=== PATIENT | female | born 1995 | race Caucasian/White ===

== ENCOUNTER 2018-01-01 15:30 | Emergency (ER) | payer OTHER, SELFPAY ==
[2018-01-01 15:32] VITALS: BP 133/73; PULSE 81; RESP 16; TEMP 36.6; O2SAT 99; BMI 29.9
--- NOTE | 2018-01-01 16:19 | CT_ITS ---
STUDY: CT ABDOMEN AND PELVIS WITH CONTRAST REASON FOR EXAM: Female, 22 years old. Nausea and vomiting x2 days RADIATION DOSAGE (If Supplied By Facility): CTDIvol = ( 13.89 ) mGy, DLP = ( 1044.10 ) mGycm TECHNIQUE: Transaxial images were obtained from the dome of the diaphragm to the symphysis pubis with oral contrast. 100ML ml of Isovue 300 contrast was administered. Sagittal and coronal images were reconstructed. Individualized dose optimization techniques were used for this CT. COMPARISON: None. FINDINGS: The visualized lung bases are unremarkable. The visualized portions of the heart are within normal limits. Normal liver. Normal gallbladder and extrahepatic biliary system. Normal spleen. Normal pancreas. Normal bilateral adrenal glands. Normal right kidney. Normal left kidney. Normal visualized stomach. Normal small intestine. Normal colon. The appendix is visualized and appears normal. Normal abdominal aorta. Normal inferior vena cava. Normal retroperitoneum. Normal urinary bladder. The uterus and adnexal structures are unremarkable. Normal abdominal wall. There is Schmorl's node formation of the endplates of several of the lower thoracic vertebrae, which is of no clinical significance. CT/Abdomen/Pelvis WITH Contrast IMPRESSION: Schmorl's node formation of several of the lower thoracic vertebral endplates, which is of no clinical significance. There is no evidence of intra-abdominal or intrapelvic free air, free fluid, or inflammatory process. Electronically Signed: Jarrod Cohen MD at 19:51 EDT , Service support ,
[2018-01-01] MEDS: Morphine 4 MG/ML Syringe IV (16:48)
[2018-01-01] MEDS: Ondansetron 4 MG/2 ML Vial IV (16:49)
[2018-01-01] MEDS: 0.9% Normal Saline 1,000 ML 1000 ML IV (16:49)
[2018-01-01 17:09] LABS: Absolute Neutrophil Count 5.4 X10^3/uL (2.0-7.7); Basophil# 0.01 X10^3/uL; Basophil% 0.1 % (0-1); Eosinophil# 0.05 X10^3/uL; Eosinophils% 0.6 % (0-5); Hematocrit 39.8 % (37-47); Hemoglobin 13.8 g/dl (12.0-15.0); Lymphocyte % 26.6 % (19-41); Mean Corp Hgb Conc 34.7 g/gl (32-36); Mean Corpuscular Hgb 32.3 pg (27.0-32.0); Mean Corpuscular Volume 93.2 fL (81-99); Mean Platelet Vol. 10.8 fl (6.2-12.0); Monocyte# 0.58 X10^3/uL; Neutrophil % 65.5 % (47-70); Platelet Count 306 K/mm3 (150-450); RBC Distribution Width CV 12.5 % (11.6-14.6); Red Blood Count 4.27 M/mm3 (4.2-5.4); White Blood Count 8.3 K/mm3 (4.4-11.0)
[2018-01-01 17:15] LABS: POSITIVE COUNT NO; POSITIVE DIFFERENTIAL NO; POSITIVE MORPHOLOGY NO
[2018-01-01 17:18] LABS: Anion Gap 8 (5-15); BUN 14 mg/dL (7-18); Calcium,Total 9.2 mg/dL (8.5-10.1); Chloride 107 mmol/L (98-107); Creatinine, Serum 0.88 mg/dL (0.55-1.02); EST Glomerular Filtration Rate 86 mL/min (>60); Est Glom Filt Rate - Afr Amer 104 mL/min (>60); Estimated Creatinine Clearance 83.65 ml/min; Glucose 75 mg/dL (74-106); Potassium 3.9 mmol/L (3.5-5.1); Sodium Level 140 mmol/L (136-145)
--- NOTE | 2018-01-01 17:40 | ED.DCSUM_ITS ---
- ER Visit Summary Date of Service: 01/01/18 Chief Complaint: Abdominal pain and vomiting History of Present Illness: The patient is a [address] Nassar. She reports she has right lower quadrant abdominal pain began 2 days ago. She describes it as aching pain. 710 hours and 510 currently. Is worsened by movement and relieved by laying down. She reports she has been nausea and vomited approximately 12 times per day. No blood or emesis. She had one episode of diarrhea initially, but has not had any since then. No melena or hematochezia. No dysuria frequency. Her last menstrual was 2 weeks ago. No vaginal bleeding or discharge. Patient denies sick contacts. Has not been camping out of the country. No possible bad food exposure. Does not drink well water. No recent antibiotic use. Physical Examination: Vitals: Stable. Afebrile. General: Well-nourished and well-developed. Head: Normocephalic atraumatic. Neck: Supple, no lymphadenopathy. No JVD. Nontender. Cardiovascular: Regular rate and rhythm. No murmurs. Respiratory: No respiratory distress. Clear to auscultation bilaterally. Abdominal: Soft, moderate tenderness palpation the right lower quadrant, nondistended, normal bowel sounds. No guarding, rebound, or peritoneal signs. Back: Nontender. Extremities: Nontender, no edema. Skin: Normal color, no rash. Neurologic: Alert and oriented ?3. Cranial nerves II through XII are intact. Normal strength and sensation. Psych: Normal affect. Test Results: CBC and Chem-7 are normal. Emergency Department Course and Treatment: Patient had an IV placed. She is given a liter normal saline. She is given morphine and Zofran IV. She has had significant improvement. Treatment Plan: Given the localized pain in the right lower quadrant the patient will have a CT performed. She will be checked out to the oncoming physician. Disposition: Pending Impression: 1. Abdominal pain. 2. Vomiting. This note was generated with [employer] dictation software. It may contain incorrect words, spelling, and punctuation that were not noted in review of the chart prior to signing ED Disposition - Plan for ED Patient: Chief Complaint: Nausea/Vomiting Instructions: ED Nausea Vomiting Prescriptions: proMETHazine suppository [Phenergan Suppository] 25 mg RECTAL Q6H PRN PRN #6 suppos. PRN Reason: Nausea proMETHazine tablet [Phenergan] 25 mg PO Q6H PRN PRN #10 tablet PRN Reason: Nausea Referrals: Charly Machuca MD [Primary Care Provider] - 1-2 Days if not improving
[2018-01-01 17:47] LABS: Pregnancy, Serum, hCG Quali. NEGATIVE Negative (0-9 Nonpreg)
[2018-01-01] MEDS: Ketorolac 30 MG/ML Syringe IV (18:10)
[2018-01-01] MEDS: proCHLORPERazine 10 MG/2 ML Vial IV (18:10)
[2018-01-01] MEDS: DiphenhydrAMINE 50 MG/ML Syringe 25 MG IV (18:10)
[2018-01-01 18:31] VITALS: BP 137/83; PULSE 94; RESP 18; O2SAT 99
[2018-01-01 19:50] LABS: Mucous, Urine 0 SEEN /hpf (<or=2+); Red Blood Cells-Urine 0 SEEN /hpf (0-5)
[2018-01-01 19:52] LABS: Color, Urine Yellow (Yellow); Glucose, Dipstick Normal (Normal); Ketone-Dipstick 50 mg/dl (Negative); Leukocyte Esterase-Dipstick Negative /ul (Negative); Nitrite-Dipstick Negative (Negative); Occult Blood-Urine Negative /ul (Negative); Protein-Dipstick Negative (Negative); Urine Bilirubin Dipstick Negative (Negative); Urine Clarity Cloudy (Clear); Urine Urobilinogen Normal (Normal)
[2018-01-01 20:06] LABS: Squamous Epithelial Cells - UA 5-10 SEEN /hpf (5-10)
[2018-01-01 20:07] LABS: Bacteria RARE /hpf (None Seen)
[2018-01-01 20:08] LABS: White Blood Cells 0-5 SEEN /hpf (0-5)
[2018-01-01 20:20] VITALS: BP 115/55; PULSE 67; RESP 16
== END 2018-01-01 20:21 | disposition home or self-care (01) ==
PROVIDERS: Emergency Provider Emergency Medicine; Family Provider Family Medicine
DX: R10.31 Right lower quadrant pain (principal); R11.2 Nausea with vomiting, unspecified; Z79.899 Other long term (current) drug therapy
CPT/HCPCS: 74177; 80048; 81001; 84703; 85025; 96361; 96374; 96375; 99283; J7030; Q9967; A4216; J2405

== ENCOUNTER 2019-11-17 08:48 | Emergency (ER) | payer SELFPAY ==
[2019-11-17 08:50] VITALS: BP 146/82; PULSE 95; RESP 20; TEMP 37.1; O2SAT 99; BMI 30.5
--- NOTE | 2019-11-17 09:05 | ED.VIS.GEN ---
History of Present Illness Chief Complaint: Dental Informant: Patient Onset: Days Context: Gradual Onset Current Severity: Moderate Maximum Severity: Moderate Narrative: Patient presents with left lower dental pain. She states had a filling that fell out in August. Pain was tolerable and she was working on getting insurance coverage for dental care. Patient states a couple days ago part of that tooth broke and now she has had increased pain. She has been taking ibuprofen without significant improvement. Past Medical History - Allergies and Home Meds Allergies/Adverse Reactions: Allergies acetaminophen Allergy (Verified 11/17/19 08:52) Vomiting gluten Allergy (Verified 11/17/19 08:52) Vomiting Primary Care Physician: Charly Nassar MD [Primary Care Provider] - Prior records reviewed: Yes Past Medical History: None Smoking Status: Current every day smoker Review of Systems General: Denies: Chills, Fever Eyes: Denies: Visual changes - bilaterally ENT: Reports: - - Left lower dental pain. Denies: Bilateral ear pain Cardiovascular: Denies: Chest pain Respiratory: Denies: Dyspnea, Cough Gastrointestinal: Denies: Abdominal pain, Nausea, Vomiting Genitourinary: Denies: Dysuria Musculoskeletal: Denies: Swelling, Extremity Pain Skin: Denies: Rash Neurological: Denies: Headache Hematologic: Denies: Easy bruising Allergy: Denies: Uticaria Physical Exam Vital Signs/Narrative: Vital Signs Temp Pulse Resp BP Pulse Ox 11/17/19 08:50 98.7 F 95 20 H 146/82 H 99 Inital Vital Signs reviewed: Yes General: Well nourished, Well developed Head: Normocephalic ENT: Moist mucous membranes, - - No facial edema or erythema. Left mandibular second premolar has a broken posterior surface. Tooth is tender to palpation. Minimal surrounding gum edema. No trismus. Posterior pharynx exam is normal. Neck: Supple, No lymphadenopathy Cardiovascular: Regular rate, Regular rhythm Respiratory: No distress, CTA bilaterally Abdomen: Soft, Nontender Extremities: Nontender Skin: Normal color Neurological: Alert, Oriented x3 Psychological: Normal affect Diagnostic/Tx/Re-eval - Medical Decision Making Patient be treated with Pen-Vee K. She will continue ibuprofen. She is an allergy to Tylenol. She is [facility] for [facility]. ED Disposition - Plan for ED Patient: Disposition: Home or Assisted Living Diagnosis: Odontalgia Prescriptions: Penicillin V Potassium 500 mg PO 4X/DAY #40 tab Transmission Status: Pending to [id number] Referrals: Charly Nassar MD [Primary Care Provider] - Sirena Verma [NON-STAFF] - As soon as possible
[2019-11-17] MEDS: Penicillin Vk 250 MG Tablet 500 MG PO (09:11)
[2019-11-17 09:38] VITALS: BP 146/82; PULSE 95; RESP 18
== END 2019-11-17 09:40 | disposition home or self-care (01) ==
PROVIDERS: Emergency Provider Emergency Medicine; PCP Family Medicine
DX: K08.89 Other specified disorders of teeth and supporting structures (principal); F17.200 Nicotine dependence, unspecified, uncomplicated
CPT/HCPCS: 99283

== ENCOUNTER 2020-03-24 22:54 | Emergency (ER) | payer SELFPAY ==
[2020-03-24 22:55] VITALS: BP 148/85; PULSE 110; RESP 16; TEMP 37.3; O2SAT 97; BMI 27.8
--- NOTE | 2020-03-24 23:31 | ED.VISSUMM ---
- ER Visit Summary Date of Service: 03/24/20 Chief Complaint: Manic episode History of Present Illness: The patient is a 24 F who presents with a manic episode to begin today. Patient states she took a test and it came back positive. Patient states that she became manic after this. Patient and her friend reports that she has a history of manic episodes. Friend states that when she becomes manic she will throw herself onto the ground, hit her head on concrete, and pull out her hair. Patient states she does not feel safe at home at this time. Patient denies any suicidal or homicidal ideations or plans at this time. Physical Examination: Vital signs are stable. Patient is afebrile. Patient is in no acute distress. Oral mucosa is pink and moist. Neck is supple. Trachea is midline. There is no JVD noted. Heart was regular rate and rhythm. Lungs are clear and equal bilaterally. Abdomen is soft. Bowel sounds are normal. There is no tenderness. There is no rebound or guarding noted. Skin is warm dry. Cranial nerves II through XII are intact. There are no focal motor or sensory deficits noted. Extremities are intact. There is no calf tenderness or edema. Patient has a flat affect and a depressed mood. Patient denies any suicidal ideation or plan at this time. Test Results: CBC showed a mild leukocytosis of 19.9. This is most likely related to . Potassium was slightly low at 3.3. Urinalysis does not show any evidence of urinary tract infection. Quantitative hCG was 21,631. Urine tox urine was positive for cannabinoids. Serum alcohol level was normal. Emergency Department Course and Treatment: Patient was advised of her test results. Patient was feeling better on reevaluation. Patient is not suicidal. Patient appears to be less anxious and more comfortable on reevaluation. Patient was advised that crisis counselor will be calling him to talk to her. Patient did not want to wait for the crisis counselor to call her. Patient was discharged. Crisis counselor will attempt to call her and arrange for outpatient follow-up. Patient understood and was agreeable with the plan. All questions were answered. Disposition: Discharge home Impression: Manic episode This note was generated with [employer] dictation software. It may contain incorrect words, spelling, and punctuation that were not noted in review of the chart prior to signing ED Disposition - Plan for ED Patient: Disposition: Home or Assisted Living Diagnosis: Manic episode Instructions: ED Manic Depression Referrals: Charly Nassar MD [Primary Care Provider] - 3-5 Days Counseling,Center [GROUP OF PHYSICIANS] - 3-5 Days
[2020-03-24 23:50] VITALS: RESP 16
[2020-03-24 23:54] LABS: Absolute Lymphocyte Count 2.55 X10^3/uL (0.83-4.51); Basophil# 0.07 X10^3/uL; Basophil% 0.4 % (0-1); Eosinophil# 0.04 X10^3/uL; Eosinophils% 0.2 % (0-5); Hematocrit 40.9 % (37-47); Hemoglobin 14.2 g/dL (12.0-15.0); Lymphocyte # 2.55 X10^3/ul (4.0); Lymphocyte % 12.8 % (19-41); Mean Corp Hgb Conc 34.7 g/dL (32-36); Mean Corpuscular Hgb 33.4 pg (27.0-32.0); Mean Corpuscular Volume 96.2 fL (81-99); Mean Platelet Vol. 10.1 fl (6.2-12.0); Monocyte# 1.08 X10^3/uL; Monocyte% 5.4 % (0-10); NRBC Flagged by Analyzer 0 % (0-5); Neutrophil # 16.01 X10^3/uL (2.7-7.7); Neutrophil % 80.7 % (47-70); Platelet Count 317 K/mm3 (150-450); RBC Distribution Width CV 12.6 % (11.6-14.6); RBC Distribution Width SD 44.3 fl (35.1-43.9); Red Blood Count 4.25 M/mm3 (4.2-5.4); White Blood Count 19.9 K/mm3 (4.4-11.0)
[2020-03-24 23:57] LABS: Bacteria 0 SEEN /hpf (None Seen); Mucous, Urine 0 SEEN /hpf (<or=2+); Red Blood Cells-Urine 0 SEEN /hpf (0-5); White Blood Cells 0 SEEN /hpf (0-5)
[2020-03-25] LABS: Color, Urine Yellow (Yellow); Glucose, Dipstick Normal (Normal); Ketone-Dipstick Negative (Negative); Leukocyte Esterase-Dipstick Negative /ul (Negative); Nitrite-Dipstick Negative (Negative); Occult Blood-Urine Negative /ul (Negative); Protein-Dipstick Negative (Negative); Urine Bilirubin Dipstick Negative (Negative); Urine Clarity Clear (Clear); Urine Urobilinogen Normal (Normal)
[2020-03-25 00:06] LABS: Squamous Epithelial Cells - UA 0-5 SEEN /hpf (5-10)
[2020-03-25 00:08] LABS: Anion Gap 8 (5-15); BUN 8 mg/dL (7-18); BUN/Creat Ratio 11.5 RATIO (10-20); Calcium,Total 9.3 mg/dL (8.5-10.1); Chloride 107 mmol/L (98-107); EST Glomerular Filtration Rate 110 mL/min (>60); Est Glom Filt Rate - Afr Amer 133 mL/min (>60); Glucose 99 mg/dL (74-106); Potassium 3.3 mmol/L (3.5-5.1); Sodium Level 138 mmol/L (136-145)
[2020-03-25 00:09] LABS: Amphetamine Urine VISTA NEGATIVE (<1000 ng/mL); Barbiturate Urine VISTA NEGATIVE (< 200 ng/mL); Benzodiazepine Urine VISTA NEGATIVE (< 200 ng/mL); Cocaine Urine VISTA NEGATIVE (< 300 ng/mL); Ecstacy Urine VISTA NEGATIVE (< 500 ng/mL); Methadone Urine VISTA NEGATIVE (< 300 ng/mL); PCP Urine VISTA NEGATIVE (< 25 ng/mL); THC Urine VISTA POSITIVE (< 50 ng/mL); Vista UDS pH Range 6
[2020-03-25 00:16] LABS: Alcohol, Blood (Medical)-Serum < 3.0 mg/dL
[2020-03-25 00:26] LABS: hCG Titer Quant., Serum 21631 mIU/mL (1-3)
[2020-03-25 01:06] VITALS: RESP 18
--- NOTE | 2020-03-25 01:34 | ED.RN ---
crisis called to see patient
--- NOTE | 2020-03-25 01:44 | ED.RN ---
crisis called back and chart being faxed to crisis at this time
[2020-03-25 02:23] VITALS: BP 124/66; PULSE 67; RESP 18; TEMP 36.9; O2SAT 98
--- NOTE | 2020-03-25 03:07 | ED.RN ---
Patient's Mom arrives wanting to take patient home. Dr Anguiano notified and ok with patient going home with her Mom if patient agrees. BUK[facility] talked with patient and patient agrees to be discharged home with Mom. Patient notified Crisis would still be in contact with patient for further mental health follow up and possible treatment.
== END 2020-03-25 03:10 | disposition home or self-care (01) ==
LOC: ED 23:32
PROVIDERS: Emergency Provider Emergency Medicine; PCP Family Medicine
DX: O99.340 Other mental disorders complicating pregnancy, unspecified trimester (principal); F30.9 Manic episode, unspecified; Z3A.00 Weeks of gestation of pregnancy not specified
CPT/HCPCS: 80048; 80307; 80320; 81001; 84702; 85025; 99281; 99282; G0480

== ENCOUNTER 2020-03-28 00:13 | Emergency (ER) | payer SELFPAY ==
[2020-03-28 00:15] VITALS: BP 137/97; PULSE 93; RESP 16; TEMP 36.9; O2SAT 99; BMI 30.3
--- NOTE | 2020-03-28 00:23 | ED.DCSUM_ITS ---
History of Present Illness Chief Complaint: Vag Bld, Preg Informant: Patient Narrative: Patient stated she had mild spotting earlier today which stopped. She went to the bathroom tonight noticed a dime size clot. She is not having any pain or other symptoms. This is her first . She was diagnosed with approximately 3 days ago at our facility for psychiatric related complaint. Her quantitative hCG was greater than 21,000 at that time. Patient does not know her blood type. She has not had any severe abdominal bleeding. She denies abdominal pain or pelvic pain or urinary symptoms. Current severity is mild. She has an [facility] in mind that she would like to see but has not made an appointment yet. Past Medical History - Allergies and Home Meds Allergies/Adverse Reactions: Allergies acetaminophen Allergy (Verified 03/28/20 00:23) Vomiting gluten Allergy (Verified 03/28/20 00:23) Vomiting Primary Care Physician: Nasim Robison MD [STAFF PHYSICIAN] - Prior records reviewed: Yes Past Medical History: - - Reviewed Surgical History: - - Reviewed Smoking Status: Current every day smoker Alcohol: None Drugs: None Review of Systems General: Denies: Chills, Fever, Sweats Eyes: Denies: Visual changes - bilaterally, Diplopia ENT: Denies: Rhinorrhea, Sore throat Cardiovascular: Denies: Chest pain, Palpitations Respiratory: Denies: Dyspnea, Cough, Dyspnea on exertion Gastrointestinal: Denies: Abdominal pain, Nausea, Vomiting, Diarrhea, Melena, Hematochezia Genitourinary: Denies: Dysuria, Hematuria, Frequency Musculoskeletal: Denies: Back pain, Extremity Pain Skin: Denies: Rash, Wounds Neurological: Denies: Headache, Weakness, Numbness Physical Exam Vital Signs/Narrative: Vital Signs Temp Pulse Resp BP Pulse Ox 03/28/20 00:15 98.5 F 93 16 137/97 H 99 General: Well nourished, Well developed, No Acute Distress Head: Normocephalic, Atraumatic Eyes: Perrl, EOMI ENT: Moist mucous membranes, No rhinorrhea Neck: Supple, Nontender Cardiovascular: Regular rate, Regular rhythm, No murmurs Respiratory: No distress, CTA bilaterally, Chest nontender Abdomen: Soft, Nontender, Nondistended, Normal bowel sounds Back: Nontender, Normal Inspection Extremities: Nontender, No edema Skin: Normal color, No rash Neurological: Alert, Oriented x3, Cranial nerves II-XII grossly intact, Normal Strength, Normal Sensation Psychological: Normal affect, Normal Mood Diagnostic/Tx/Re-eval - Medical Decision Making Repeat quantitative hCG sent as well as blood type. Patient is O+ therefore does not need RhoGam. Monitor the analysis repeat greater than 31,000. This is going up. Pelvic exam shows no active bleeding. She will undergo an ultrasound tomorrow. I do not feel need to call in the radiological technician. I suspect she has intrauterine . This may be a mild implantation bleed. This could be the beginning of the miscarriage however time will tell. I do not feel she has an emergent illness. She had a normal hemoglobin just recently therefore I do not feel that needs to be repeated as she just had a dime sized amount. She will follow-up with [facility] and given a referral ED Disposition - Plan for ED Patient: Disposition: Home or Assisted Living Diagnosis: Vaginal bleeding during Instructions: ED Possible Miscarriage Threatened Referrals: Nasim Robison MD [STAFF PHYSICIAN] -
[2020-03-28 01:44] VITALS: BP 129/86; PULSE 78; RESP 17; O2SAT 98
== END 2020-03-28 01:40 | disposition home or self-care (01) ==
PROVIDERS: Emergency Provider Emergency Medicine; PCP Family Medicine
DX: O46.90 Antepartum hemorrhage, unspecified, unspecified trimester (principal); Z3A.00 Weeks of gestation of pregnancy not specified; O99.330 Smoking (tobacco) complicating pregnancy, unspecified trimester; F17.200 Nicotine dependence, unspecified, uncomplicated
CPT/HCPCS: 84702; 86900; 86901; 99282; A4216

== ENCOUNTER → 2020-03-30 | Outpatient (CLI) | payer SELFPAY ==
[2020-03-28 00:15] VITALS: BMI 30.3
[2020-03-30 12:13] LABS: Absolute Lymphocyte Count 1.95 X10^3/uL (0.83-4.51); Absolute Neutrophil Count 7.4 X10^3/uL (2.0-7.7); Basophil# 0.03 X10^3/uL; Basophil% 0.3 % (0-1); Color, Urine Yellow (Yellow); Eosinophil# 0.05 X10^3/uL; Eosinophils% 0.5 % (0-5); Glucose, Dipstick 100 mg/dl (Normal); Hematocrit 38.9 % (37-47); Hemoglobin 13.6 g/dL (12.0-15.0); Ketone-Dipstick 50 mg/dl (Negative); Leukocyte Esterase-Dipstick Negative /ul (Negative); Lymphocyte # 1.95 X10^3/ul (4.0); Lymphocyte % 19.3 % (19-41); Mean Corpuscular Hgb 33.5 pg (27.0-32.0); Mean Corpuscular Volume 95.8 fL (81-99); Mean Platelet Vol. 10.2 fl (6.2-12.0); Monocyte# 0.65 X10^3/uL; Monocyte% 6.4 % (0-10); NRBC Flagged by Analyzer 0 % (0-5); Neutrophil % 73.1 % (47-70); Nitrite-Dipstick Negative (Negative); Occult Blood-Urine Negative /ul (Negative); Platelet Count 304 K/mm3 (150-450); Protein-Dipstick Negative (Negative); RBC Distribution Width SD 42.1 fl (35.1-43.9); Red Blood Count 4.06 M/mm3 (4.2-5.4); Specific Gravity, Urine 1.015 (1.002-1.030); Urine Bilirubin Dipstick Negative (Negative); Urine Clarity Sl. Cloudy (Clear); Urine Urobilinogen Normal (Normal); White Blood Count 10.1 K/mm3 (4.4-11.0)
[2020-03-30 13:20] LABS: Amphetamine Urine VISTA NEGATIVE (<1000 ng/mL); Barbiturate Urine VISTA NEGATIVE (< 200 ng/mL); Benzodiazepine Urine VISTA NEGATIVE (< 200 ng/mL); Cocaine Urine VISTA NEGATIVE (< 300 ng/mL); Ecstacy Urine VISTA NEGATIVE (< 500 ng/mL); HIV - WCH Non-Reactive (Nonreactive); Hepatitis B Surface Antigen Non-Reactive (Nonreactive); Hepatitis C Antibody Non-Reactive (Nonreactive); Methadone Urine VISTA NEGATIVE (< 300 ng/mL); PCP Urine VISTA NEGATIVE (< 25 ng/mL); Rubella IgG 11.9 IU/mL; THC Urine VISTA POSITIVE (< 50 ng/mL); Vista UDS pH Range 7
[2020-04-03 03:06] LABS: Chlamydia By Nucleic Acid AMP Negative (Negative)
[2020-04-03 10:45] LABS: Gonococcus By Nucleic Acid AMP Negative (Negative)
[2020-04-05 05:27] LABS: Prenatal RPR NONREACTIVE (NONREACTIVE)
== END | disposition home or self-care (01) ==
LOC: WOBLAB 11:15
PROVIDERS: PCP Family Medicine; Visit Provider Obstetrics & Gynecology
DX: Z34.81 Encounter for supervision of other normal pregnancy, first trimester (principal)
CPT/HCPCS: 36415; 80307; 81002; 85025; 86703; 86762; 86803; 87340; 87491; 87591

== ENCOUNTER → 2020-06-07 | Outpatient (CLI) | payer MEDICAID, SELFPAY ==
[2020-06-15 12:07] LABS: AFP MoM Value 1.61 (.); AFP Value-EIA 58.6 ng/mL (.); Comment Report (.); DIA MoM Value 0.62 (.); DIA Value-EIA 96.95 pg/mL (.); DSR (By Age) 1060 (.); DSR (Second Trimester) 10000 (.); Gestat. Age Based On As provided (.); Insulin Dep Diabetes No (.); Maternal Age At EDD 24.3 yr (.); hCG Value 25325 mIU/mL (.)
[2020-06-15 12:19] LABS: CF, Screen Comment: (.)
== END | disposition home or self-care (01) ==
LOC: WOBLAB 16:45
PROVIDERS: PCP Family Medicine; Visit Provider Obstetrics & Gynecology
DX: Z34.82 Encounter for supervision of other normal pregnancy, second trimester (principal)
CPT/HCPCS: 36415; 81220; 82105; 82677; 84702

== ENCOUNTER → 2020-07-26 13:27 | Outpatient (CLI) | payer MEDICAID, SELFPAY ==
[2020-07-26 14:53] LABS: Hemoglobin 11.6 g/dL (12.0-15.0); Mean Corp Hgb Conc 33.1 g/dL (32-36); Mean Corpuscular Hgb 32.2 pg (27.0-32.0); Mean Corpuscular Volume 97.2 fL (81-99); Mean Platelet Vol. 10.7 fl (6.2-12.0); Platelet Count 273 K/mm3 (150-450); RBC Distribution Width CV 12.5 % (11.6-14.6); White Blood Count 8.4 K/mm3 (4.4-11.0)
[2020-07-26 14:55] LABS: Glucose Challenge Gest 1H 50g 92 mg/dL (70-140)
== END ==
PROVIDERS: PCP Family Medicine; Visit Provider Obstetrics & Gynecology
DX: Z34.82 Encounter for supervision of other normal pregnancy, second trimester (principal)
CPT/HCPCS: 36415; 82950; 85027

== ENCOUNTER → 2020-10-18 16:31 | Outpatient (CLI) | payer SELFPAY | PROVIDERS: PCP Family Medicine; Visit Provider Obstetrics & Gynecology | DX: Z36.85 Encounter for antenatal screening for Streptococcus B (principal) | CPT/HCPCS: 87081 ==

== ENCOUNTER 2020-11-10 04:35 | Inpatient (IN) | payer MEDICAID, SELFPAY ==
[2020-11-10] VITALS (109 sets, daily range): BP systolic 131–179; BP diastolic 77–111; PULSE 55–237; RESP 16; TEMP 36.2–37.4; O2SAT 82–100; BMI 35.4
--- NOTE | 2020-11-10 04:32 | HP.PCM_ITS ---
History and Physical Date of Admission: 11/10/20 HPI: 25-year-old G1, P0 at 39/2 weeks, OSMAN 11/15/2020 by LMP, admitted for induction of labor for gestational hypertension. Patient reports cramping starting last night, nothing was consistent or regular. Patient believes these to be [place] contractions. She took some Tylenol and went to sleep. Overnight she woke up several times to use the restroom. At a certain point she had bleeding. She was unsure at that time if baby was moving or not as she was very anxious. She reports upon arrival to labor and delivery feeling of popping. She still has some bleeding when voiding. She is now feeling good normal movement. Denies headache that is unresolved with Tylenol, vision changes, right upper quadrant pain, nausea and vomiting, chest pain, dyspnea. This is complicated by: Bipolar disorder, bulimia, Covid in August 2020, THC use, early alcohol use in , newly diagnosed gestational hypertension. Obstetrical History G1: Current Past Medical History Bipolar disorder, bulimia, history of drug use Medications PNV Past Surgical History Denies Social History Tobacco use: Vapes Alcohol use: Denies Illicit drug use: History of THC use Labs Blood type: O+ Rubella: Immune Hep B/C: Negative/negative HIV: Negative RPR: Nonreactive 1 hour GTT: Within normal limits GBS: neg 10/18 Allergies Hydrocodone, Percocet, Vicodin Review of Systems General: alert and oriented HEENT: _denies change of vision Heart/lungs: _denies CP, SOB GI: _denies nausea, vomiting, dysuria, diarrhea MSK: _denies calf pain, tenderness Physical Exam Vital Signs Temp Pulse BP Pulse Ox 11/10/20 04:22 68 157/95 H 11/10/20 04:12 68 141/82 H 11/10/20 04:01 66 179/104 H 94 11/10/20 04:00 97.8 F 97 General: a&o x3, NAD HEENT: normocephalic, atraumatic Cardio: no JVD Resp: no increased work in breathing Abdomen: soft, gravid, nontender, no right upper quadrant pain Extremities: _minimal-moderate edema Neurological: Cranial nerves II through XII grossly intact, patellar reflexes 2/4, no clonus CE: 50/-3, moderate amount of blood on glove unable to determine if membranes were palpated on exam FHT: 150/moderate variability/positive accelerations/no decelerations [place]: irregular Labs Pending: CBC, type and screen, CMP, LDH, urine tox, urinalysis, urine protein creatinine ratio Assessment & Plan 25-year-old G1, P0 at 39/2 weeks, OSMAN 11/15/2020 by LMP, admitted for induction of labor for gestational hypertension. This is complicated by: Bipolar disorder, bulimia, Covid in August 2020, THC use, early alcohol use in , newly diagnosed gestational hypertension. Admit to L&D - Routine labor orders -Elevated blood pressure, suspected gestational hypertension. Preeclampsia labs will be sent. Patient asymptomatic at this time, exam within normal limits. As patient is over 37 weeks gestation, indication for delivery based on elevated blood pressures is present. We will plan to induce with Pitocin. Risks of induction were discussed with the patient including risk of intolerance of labor and section. -Vaginal bleeding. No evidence at this time of placental abruption. Patient is comfortable in room, abdomen is soft and nontender. Contraction pattern is irregular and heart rate is reassuring. Bleeding etiology could be secondary to early labor or rupture of membranes. Will send PROM however aware that this may not be accurate due to presence of blood. Based on elevated blood pressures and vaginal bleeding plan to induce as above. No indication for section at this time. - GBS negative 10/18/2020 -THC use. Will get urine tox screen -Bipolar disorder. Patient is not currently on any medications. Will need follow-up with psychiatrist and/or primary care after delivery. - CEFM - Anesthesia to see
[2020-11-10 04:50] LABS: ROM Internal Control Test YES-OK TO RESULT pt. (Internal QC)
[2020-11-10 04:52] LABS: ROM Patient Test POSITIVE (Negative)
[2020-11-10] MEDS: Lactated Ringers 1,000 ML 50 ML IV (04:55)
[2020-11-10 05:16] LABS: Mucous, Urine 0 SEEN /hpf (<or=2+)
[2020-11-10 05:18] LABS: Absolute Neutrophil Count 7.7 X10^3/uL (2.0-7.7); Basophil# 0.04 X10^3/uL; Basophil% 0.4 % (0-1); Eosinophil# 0.08 X10^3/uL; Eosinophils% 0.7 % (0-5); Hematocrit 32.6 % (37-47); Lymphocyte % 22.4 % (19-41); Mean Corp Hgb Conc 33.7 g/dL (32-36); Mean Corpuscular Hgb 31.4 pg (27.0-32.0); Mean Corpuscular Volume 93.1 fL (81-99); Mean Platelet Vol. 11.8 fl (6.2-12.0); Monocyte# 0.83 X10^3/uL; Monocyte% 7.4 % (0-10); NRBC Flagged by Analyzer 0 % (0-5); Neutrophil # 7.66 X10^3/uL (2.7-7.7); Neutrophil % 68.6 % (47-70); Platelet Count 210 K/mm3 (150-450); RBC Distribution Width CV 13.5 % (11.6-14.6); RBC Distribution Width SD 45.1 fl (35.1-43.9); White Blood Count 11.2 K/mm3 (4.4-11.0)
[2020-11-10 05:25] LABS: Color, Urine Red (Yellow); Glucose, Dipstick Normal (Normal); Ketone-Dipstick Negative (Negative); Leukocyte Esterase-Dipstick Negative /ul (Negative); Nitrite-Dipstick Negative (Negative); Occult Blood-Urine 250 /ul (Negative); Protein-Dipstick 500 mg/dl (Negative); Specific Gravity, Urine 1.015 (1.002-1.030); Urine Bilirubin Dipstick Negative (Negative); Urine Clarity Turbid (Clear); Urine Urobilinogen Normal (Normal)
[2020-11-10 05:27] LABS: Partial Thromboplast Time 24.4 Seconds (24.1-36.2); Prothrombin Time (Protime)PT. 12.2 SECONDS (11.7-14.9)
[2020-11-10 05:32] LABS: Red Blood Cells-Urine > 100 SEEN /hpf (0-5)
[2020-11-10 05:33] LABS: Squamous Epithelial Cells - UA 0-5 SEEN /hpf (5-10); White Blood Cells 0-5 SEEN /hpf (0-5)
[2020-11-10] MEDS: Oxytocin 30 units/NS 500 ml 30 UNITS/500 ML IV.SOLN IV (05:35)
[2020-11-10 05:36] LABS: AST(SGOT) 49 U/L (15-37); Alanine Aminotransfer ALT/SGPT 15 U/L (13-56); Creatinine, Serum 0.72 mg/dL (0.55-1.02); EST Glomerular Filtration Rate 106 mL/min (>60); Est Glom Filt Rate - Afr Amer 128 mL/min (>60); Estimated Creatinine Clearance 95.29 ml/min; LDH 566 U/L (84-246); Uric Acid 5.5 mg/dL (2.6-6.0)
[2020-11-10 05:41] LABS: Amphetamine Urine VISTA NEGATIVE (<1000 ng/mL); Barbiturate Urine VISTA NEGATIVE (< 200 ng/mL); Benzodiazepine Urine VISTA NEGATIVE (< 200 ng/mL); Cocaine Urine VISTA NEGATIVE (< 300 ng/mL); Ecstacy Urine VISTA NEGATIVE (< 500 ng/mL); Methadone Urine VISTA NEGATIVE (< 300 ng/mL); PCP Urine VISTA NEGATIVE (< 25 ng/mL); THC Urine VISTA NEGATIVE (< 50 ng/mL); Vista UDS pH Range 7
[2020-11-10 05:50] LABS: Protein, Urine (Random) 230.2 mg/dL (<11.9); Protein:Creat Ratio 6090 mg/g CRE (0-200)
[2020-11-10] MEDS: Lactated Ringers 500 ML 999 ML IV (08:29)
[2020-11-10] MEDS: fentaNYL-bupivacaine (epidural) 100 ML BAG EPIDURAL (09:25)
[2020-11-10] MEDS: Ondansetron 4 MG/2 ML Vial IV (09:35)
[2020-11-10] MEDS: Lactated Ringers 1,000 ML 200 ML IV (13:35)
--- NOTE | 2020-11-10 16:23 | PN.OBGYN_ITS ---
Subjective: Patient feeling right-sided contractions with second epidural. States this epidural is improved from previous epidural where there was left-sided pain that was severe. Patient wincing with each contraction. Bolus was given while in room and patient had great relief. Overall patient feeling a bit mentally warm but desires to keep going. - Physical Exam Vitals/I&O's: Vital Signs Temp Pulse BP Pulse Ox 97.8 F 220 H 140/85 H 85 11/10/20 15:34 11/10/20 16:03 11/10/20 16:03 11/10/20 16:03 Weight: 197 lb Body Mass Index (BMI) 35.4 Intake and Output for Last 24 Hours 11/08/20 11/09/20 11/10/20 23:59 23:59 23:59 Intake Total 1793.79 / 1793.79 Output Total 400 / 400 Balance 1393.79 / 1393.79 General: Alert, Oriented x3, Cooperative, No apparent distress HEENT: Atraumatic, Normocephalic Oral: Moist Mucosa Neck: Supple Extremities: No clubbing, No cyanosis, No edema Neurological: Neuro grossly intact Psych/Mental Status: Normal Affect, Appropriate, Alert and oriented to time, place, person, mood and affect Microbiology Past 72 Hours 11/10/20 04:55 Mucosa - Nose SARS-CoV-2 Antigen (Rapid) - Final Laboratory Results 11/10/20 04:30: Vag Amniotic Fld Detect POSITIVE H 11/10/20 04:55: WBC 11.2 H, RBC 3.50 L, Hgb 11.0 L, Hct 32.6 L, MCV 93.1, MCH 31.4, MCHC 33.7, RDW Std Deviation 45.1 H, RDW Coeff of Cinthya 13.5, Plt Count 210, MPV 11.8, Immature Gran % (Auto) 0.500, Neut % (Auto) 68.6, Lymph % (Auto) 22.4, [place] % (Auto) 7.4, Eos % (Auto) 0.7, Baso % (Auto) 0.4, Absolute Neuts (auto) 7.7, Absolute Lymphs (auto) 2.50, Nucleated RBC % 0 11/10/20 04:55: Blood Type O POSITIVE, Antibody Screen NEGATIVE 11/10/20 04:55: Creatinine 0.72, Estim Creat Clear Calc 95.29, Est GFR (MDRD) Af Amer 128, Est GFR (MDRD) Non-Af 106, Uric Acid 5.5, AST 49 H, ALT 15, Lactate Dehydrogenase 566 H 11/10/20 04:55: PT 12.2, INR 1.0, APTT 24.4 11/10/20 04:55: Urine Opiates Screen NEGATIVE, Urine Methadone Screen NEGATIVE, Ur Barbiturates Screen NEGATIVE, Ur Phencyclidine Scrn NEGATIVE, Ur Amphetamines Screen NEGATIVE, U Methamphetamin-MDMA NEGATIVE, U Benzodiazepines Scrn NEGA TIVE, Urine Cocaine Screen NEGATIVE, U Cannabinoids Screen NEGATIVE, Ur Drug Screen Comment 11/10/20 04:55: Urine Color Red, Urine Clarity Turbid, Urine pH 7.0, Ur Specific [place] 1.015, Urine Protein 500 H, Urine Glucose (UA) Normal, Urine Ketones Negative, Urine Occult Blood 250 H, Urine Nitrite Negative, Urine Bilirubin Negative, Urine Urobilinogen Normal, Ur Leukocyte Esterase Negative, Urine RBC > 100 SEEN, Urine WBC 0-5 SEEN, Ur Squamous Epith Cells 0-5 SEEN, Urine Bacteria Not Reportable, Urine Mucus 0 SEEN 11/10/20 04:55: U Random Total Protein 230.2 H, Urine Creatinine 37.80, Protein/Creatinin Ratio 6090 H Current Medications Acetaminophen (Acetaminophen 500 Mg Tablet) 500 - 1,000 mg PO Q6H PRN PRN PRN Reason: Pain Score 1-3 Al Hydroxide/Mg Hydroxide (Mag Hydrox/Al Hydrox/Simeth 30 Ml Udc) 15 - 30 ml PO Q4H PRN PRN PRN Reason: INDIGESTION Citric Acid/Sodium Citrate (Sodium Citrate/Citric Acid 30 Ml Udc) 30 ml PO X1 PRN PRN Reason: Section Ephedrine Sulfate (Ephedrine Sulfate 50 Mg/Ml Ampul) 10 mg IV Q10M PRN PRN Reason: hypotension Ephedrine Sulfate (Ephedrine Sulfate 50 Mg/Ml Ampul) 10 mg IM Q30M PRN PRN Reason: hypotension Fentanyl Citrate (Fentanyl 100 Mcg/2 Ml Ampul) 25 - 50 mcg IV Q2H PRN PRN PRN Reason: Pain Score 4-10 Fentanyl/Bupivacaine/Sodium Chlor (Fentanyl-Bupivacaine (Epidural) 100 Ml Bag) 0 ml EPIDURAL UD NANCY; Protocol Last Admin: 11/10/20 09:25 Dose: 100 ml Documented by: Lactated Ringer's () 500 mls @ 999 mls/hr IV .Q31M PRN PRN Reason: Epidural Last Infusion: 11/10/20 09:00 Dose: Infused Documented by: Lactated Ringer's () 500 mls @ 999 mls/hr IV .Q31M PRN PRN Reason: Corrective Measures Lactated Ringer's () 1,000 mls @ 50 mls/hr IV .Q20H [facility] Last Admin: 11/10/20 13:35 Dose: 200 mls/hr Documented by: Oxytocin/Sodium Chloride () 30 units in 500 mls @ 2 mls/hr IV .Q250H [facility] Last Infusion: 11/10/20 16:00 Dose: 6 mls/hr Documented by: Nalbuphine HCl (Nalbuphine 10 Mg/Ml Ampul) 5 mg IV Q3H PRN PRN PRN Reason: ITCHING Naloxone HCl (Naloxone 0.4 Mg/Ml Syringe) 0.02 mg IV Q1M PRN PRN Reason: RR <10 and pt unresponsive Ondansetron HCl (Ondansetron 4 Mg/2 Ml Vial) 4 mg IV Q4H PRN PRN PRN Reason: NAUSEA Last Admin: 11/10/20 09:35 Dose: 4 mg Documented by: Prochlorperazine Edisylate (Prochlorperazine 10 Mg/2 Ml Vial) 10 mg IV Q6H PRN PRN PRN Reason: NAUSEA Sodium Chloride (0.9% Saline Lock 10 Ml Syringe) 10 - 40 ml IV X1 PRN PRN Reason: SALINE FLUSH Medical Necessity - Tobacco Use Smoking Status: Current every day smoker Assessment/Plan Patient seen and examined. Cervical exam 5 cm unchanged from previous cervical exam 2 hours ago. Patient with IUPC and FSE previously placed. Overall heart tracing category 1 tracing 120/moderate variability/negative accelerations/early decelerations. Pitocin previously turned off with nonreassuring heart tones now Pitocin is being titrated with category 1 tracing. Educated patient on blood pressures and lab values. Patient with elevated blood pressures gestational hypertension, labs with slightly elevated AST but is not severe range double the upper limit of normal. Urine protein noted but a large amount of blood is also noted in the urine along with rupture membranes, very difficult to evaluate. Patient has also had severe range blood pressures that are not persistent. Patient remains asymptomatic. We will continue to monitor and if severe range blood pressures remain persistent will treat and start magnesium if needed. Discussed anesthesia and epidural relief with the patient and the anesthesia team. Patient is becoming mentally and physically warm from lack of pain relief. Recent bolus given the most relief. We will continue to keep second epidural and managed with bolus medication as needed, will consider third epidural if needed per anesthesia team. Educated patient on Pitocin titration and cervical dilation possible future need for , but at this time category 1 tracing we will continue to titrate Pitocin.
[2020-11-10] MEDS: Oxytocin 30 units/NS 500 ml 30 UNITS/500 ML IV.SOLN 334 UNITS IV (18:19)
--- NOTE | 2020-11-10 18:30 | PCM.OPRPT ---
Vaginal Delivery Date of Procedure: 11/10/20 Pre-Operative Diagnosis: Term, nonreassuring heart tones Post-Operative Diagnosis: Term, nonreassuring heart tones Surgery/ Procedure Performed: Vacuum Assisted Vaginal Delivery Type of Anesthesia: Epidural Description of Procedure: Procedure: Vacuum-assisted vaginal delivery Surgeon: Sy Schaefer MD Anesthesia: Epidural EBL: 300 cc Complications: none Findings: Female in vertex position, OA +2 station. Apgars 7/9. Right labial laceration noted and repaired. Consent: Patient arrived to labor and delivery with SROM augmented with Pitocin. After replacement of epidural patient felt to have pelvic pressure noted to be precipitously delivering. I was called and arrived to room with baby and heart tones in the 50s to 60s for 4 minutes. Patient pushing with no progress and no improvement with heart tones. Direct OA position was noted +3 station. Pelvis felt to be adequate for vaginal delivery. The epidural was adequate. Educated the patient on vacuum delivery. Patient desired to proceed with vacuum delivery and understood there were small risks of cephalhematoma or shoulder dystocia. Procedure: Arcos catheter was present. Vagina was examined to reconfirmed OA position +3 station. A Kiwi vacuum was applied over the sagittal suture about 3 cm from the posterior fontanelle toward the face. Vacuum pressure was created. The head of the vacuum cup was carefully examined and no maternal tissue was entrapped under the cup. Right hand apply gentle horizontal traction along with pelvic axis and coordination with maternal pushing. Progressive descent was noted with each of the 5 pulls. The handle of the vacuum was gradually elevated on the perineum began to bulge.. The cup did not pop off the head throughout the procedure. The cup was removed after the head delivery. The shoulders and the rest of the body were delivered with ease. Placenta was delivered via cord traction and fundal massage. IV oxytocin was initiated to facilitate uterine contractions. The cervix and vaginal hairston were thoroughly examined. Right labial laceration was noted and repaired in typical fashion. The was examined after delivery. No visible lacerations were noted.
--- NOTE | 2020-11-10 18:41 | DCINST_ITS ---
<Sy Schaefer - Last Filed: 11/10/20 18:41> Discharge Diet: No Restrictions Discharge Activity: Return to Normal Activity, No Restrictions, May Drive, May Shower May resume sexual activity in: 4-6 weeks Weight Bearing Status: Weight bearing as tolerated Call your doctor if your incision/area has: Continuous Slow Oozing, Foul Smelling Discharge Call your doctor if you observe: Fever of 101 or Higher, Shortness of breath, Chest pain Additional Instructions: If you experience any of the following, contact your healthcare provider. * Bleeding that soaks a pad every hour for 2 hours * Fever 100.4 or higher * Unrelieved incision or abdominal pain * Swelling, redness, discharge or bleeding from your incision or episiotomy site * Your incision begins to separate * Problems urinating (including inability to urinate or burning while urinating). * Visual changes * Severe headache * Flu-like symptoms * Pain or redness in one of both of your breasts * Pain, warmth, tenderness or swelling in your legs, especially the calf area * Frequent nausea and vomiting * Symptoms of depression or anxiety If you experience any of the following, call 911 or go to the nearest Emergency Room. * Chest pain * Problems breathing * Seizure activity * Partial or complete paralysis of a body part, slurred speech, weakness or drooping of the face, or a sudden inability to walk or hold your balance Allergies/Adverse Reactions: Allergies acetaminophen Allergy (Verified 11/10/20 04:09) Vomiting gluten Allergy (Verified 11/10/20 04:09) Vomiting Medications to take at Discharge Pnv No.95/Ferrous Fum/Folic AC [ Formula] 1 ea PO DAILY 03/28/20 Please Follow Up With: Sy Schaefer MD - e When: 1 week for blood pressure check, 4 to 6 weeks for visit Primary Care Physician: Charly Nassar MD [Primary Care Provider] - Test Results: Test results from this visit will be discussed in further detail at your follow- up appointment, if applicable. <Thuy Schaefer - Last Filed: 11/12/20 06:51> Additional Instructions: If you experience any of the following, contact your healthcare provider. * Bleeding that soaks a pad every hour for 2 hours * Fever 100.4 or higher * Unrelieved incision or abdominal pain * Swelling, redness, discharge or bleeding from your incision or episiotomy site * Your incision begins to separate * Problems urinating (including inability to urinate or burning while urinating). * Visual changes * Severe headache * Flu-like symptoms * Pain or redness in one of both of your breasts * Pain, warmth, tenderness or swelling in your legs, especially the calf area * Frequent nausea and vomiting * Symptoms of depression or anxiety If you experience any of the following, call 911 or go to the nearest Emergency Room. * Chest pain * Problems breathing * Seizure activity * Partial or complete paralysis of a body part, slurred speech, weakness or drooping of the face, or a sudden inability to walk or hold your balance When: additional 3w in office MD visit Test Results: Test results from this visit will be discussed in further detail at your follow- up appointment, if applicable.
[2020-11-10] MEDS: Ibuprofen 600 MG Tablet PO (19:48)
[2020-11-10] MEDS: 0.9% Saline Lock 10 ML Syringe IV (20:41)
--- NOTE | 2020-11-10 21:19 | NURSING ---
mary cath removed at 2044. 10 cc NS removed from balloon. pt tolerated well. tip intact. 400 cc clear, yellow urine emptied. pt aware she needs two voids before getting her IV removed.
--- NOTE | 2020-11-10 21:21 | NURSING ---
this RN gave report to pamela JANE. that rn to assume care of pt at this time.
--- NOTE | 2020-11-10 22:41 | NURSING ---
Rounded on this patient and patient stated, I feel like I'm bleeding a lot. Assess patient's current pad and previous pad. Small amount of red lochia. Patient's fundus firm and 1 breadth below uterus, midline. Explained to patient that abnormal findings would be soaking more than one pad an hour or a golf ball sized clot or larger. Patient verbalizes understanding.
[2020-11-11 03:33] VITALS: BP 121/69; PULSE 79; RESP 16; TEMP 36.5
[2020-11-11] MEDS: Ibuprofen 600 MG Tablet PO ×3 (05:04→23:57)
[2020-11-11 07:40] VITALS: BP 135/95; PULSE 74; RESP 18; TEMP 36.1
--- NOTE | 2020-11-11 10:43 | PCM.PN.OB ---
Subjective: day 1. Bottlefeeding. Bottom is sore but pain is tolerable. Lochia minimal. Denies headache, vision changes, chest pain, shortness of breath, nausea vomiting, right upper quadrant pain. - Physical Exam Vitals/I&O's: Vital Signs Temp Pulse Resp BP Pulse Ox 97 F L 74 18 135/95 H 98 11/11/20 07:40 11/11/20 07:40 11/11/20 07:40 11/11/20 07:40 11/10/20 20:29 Oxygen Delivery Method Room Air Weight: 89.358 kg Body Mass Index (BMI) 35.4 Intake and Output for Last 24 Hours 11/09/20 11/10/20 11/11/20 23:59 23:59 23:59 Intake Total 3192.71 / 3192.71 Output Total 1650 / 1700 450 / 450 Balance 1542.71 / 1492.71 -450 / -450 General: Alert, Oriented x3, No apparent distress HEENT: Atraumatic, Normocephalic Neck: Supple Lungs: Normal air movement Cardiovascular: Regular rate, Regular Rhythm Abdomen: Soft - Uterus 2 cm below umbilicus Extremities: No edema Neurological: Cranial nerves II-XII grossly intact, Deep Tendon Reflexes 2+/4 and Symmetrical Psych/Mental Status: Normal Affect, Appropriate Microbiology Past 72 Hours 11/10/20 04:55 Mucosa - Nose SARS-CoV-2 Antigen (Rapid) - Final Current Medications Acetaminophen (Acetaminophen 500 Mg Tablet) 1,000 mg PO Q8 PRN PRN Reason: Pain Score 1-3 Bisacodyl (Bisacodyl 10 Mg Suppository) 10 mg RC UD PRN PRN Reason: If no BM Dibucaine (Dibucaine 30 Gm Tube) 1 applic TOPICAL TID PRN PRN; Protocol PRN Reason: Discomfort Hydrocortisone (Hydrocortisone 2.5% Crm) 1 applic TOPICAL TID PRN PRN; Protocol PRN Reason: Discomfort Ibuprofen (Ibuprofen 600 Mg Tablet) 600 mg PO Q6H PRN PRN PRN Reason: Pain Score 1-3 Last Admin: 11/11/20 05:04 Dose: 600 mg Documented by: Ondansetron HCl (Ondansetron 4 Mg/2 Ml Vial) 4 mg IV Q4H PRN PRN PRN Reason: Nausea Senna/Docusate Sodium (Senna/Docusate Sodium 1 Tablet) 1 - 2 tablet PO DAILY PRN PRN PRN Reason: Constipation Simethicone (Simethicone 80 Mg Tablet) 80 mg PO PCHS PRN PRN Reason: Indigestion/Stomach pain Sodium Chloride (0.9% Saline Lock 10 Ml Syringe) 5 - 15 ml IV UD PRN PRN Reason: SALINE FLUSH Last Admin: 11/10/20 20:41 Dose: 10 ml Documented by: Medical Necessity - Tobacco Use Smoking Status: Current every day smoker Assessment/Plan 25-year-old day 1 status post V AVD. Complicated by gestational hypertension. Blood pressures are improved, no need for medication at this time. Home tomorrow. Plan for 1 week blood pressure check.
[2020-11-11] MEDS: Acetaminophen 500 MG Tablet 1000 MG PO (10:57)
[2020-11-11 12:57] VITALS: BP 148/98; PULSE 85; RESP 16; TEMP 36
[2020-11-11 16:24] VITALS: BP 149/92; PULSE 84; RESP 16; TEMP 36.1
[2020-11-11 19:47] VITALS: BP 143/85; PULSE 79; RESP 18; TEMP 37.3
[2020-11-12] VITALS (8 sets, daily range): BP systolic 127–153; BP diastolic 76–106; PULSE 74–96; RESP 16–18; TEMP 35.8–37.1; O2SAT 96–98
[2020-11-12] MEDS: Acetaminophen 500 MG Tablet 1000 MG PO ×2 (02:11→14:52)
--- NOTE | 2020-11-12 06:52 | PN.OBGYN_ITS ---
Subjective: day 2. Feeling well. Having some cramping. No headaches, vision changes, chest pain, shortness of breath, nausea or vomiting, right upper quadrant pain. - Physical Exam Vitals/I&O's: Vital Signs Temp Pulse Resp BP Pulse Ox 98.7 F 74 18 138/90 H 98 11/12/20 02:04 11/12/20 02:04 11/12/20 02:04 11/12/20 02:04 11/10/20 20:29 Oxygen Delivery Method Room Air Weight: 89.358 kg Body Mass Index (BMI) 35.4 Intake and Output for Last 24 Hours 11/10/20 11/11/20 11/12/20 23:59 23:59 23:59 Intake Total 3192.71 / 3192.71 Output Total 1650 / 1700 450 / 450 Balance 1542.71 / 1492.71 -450 / -450 General: Alert, Oriented x3, No apparent distress HEENT: Atraumatic, Normocephalic Neck: Supple Lungs: Clear to auscultation, Normal air movement Cardiovascular: Regular rate, Regular Rhythm Abdomen: Soft - Uterus 2 cm below umbilicus Extremities: No edema Neurological: Cranial nerves II-XII grossly intact, Deep Tendon Reflexes 2+/4 and Symmetrical Psych/Mental Status: Normal Affect, Appropriate Microbiology Past 72 Hours 11/10/20 04:55 Mucosa - Nose SARS-CoV-2 Antigen (Rapid) - Final Current Medications Acetaminophen (Acetaminophen 500 Mg Tablet) 1,000 mg PO Q8 PRN PRN Reason: Pain Score 1-10 Last Admin: 11/12/20 02:11 Dose: 1,000 mg Documented by: Bisacodyl (Bisacodyl 10 Mg Suppository) 10 mg RC UD PRN PRN Reason: If no BM Dibucaine (Dibucaine 30 Gm Tube) 1 applic TOPICAL TID PRN PRN; Protocol PRN Reason: Discomfort Hydrocortisone (Hydrocortisone 2.5% Crm) 1 applic TOPICAL TID PRN PRN; Protocol PRN Reason: Discomfort Ibuprofen (Ibuprofen 600 Mg Tablet) 600 mg PO Q6H PRN PRN PRN Reason: Pain Score 1-10 Last Admin: 11/11/20 23:57 Dose: 600 mg Documented by: Ondansetron HCl (Ondansetron 4 Mg/2 Ml Vial) 4 mg IV Q4H PRN PRN PRN Reason: Nausea Senna/Docusate Sodium (Senna/Docusate Sodium 1 Tablet) 1 - 2 tablet PO DAILY PRN PRN PRN Reason: Constipation Simethicone (Simethicone 80 Mg Tablet) 80 mg PO PCHS PRN PRN Reason: Indigestion/Stomach pain Sodium Chloride (0.9% Saline Lock 10 Ml Syringe) 5 - 15 ml IV UD PRN PRN Reason: SALINE FLUSH Last Admin: 11/10/20 20:41 Dose: 10 ml Documented by: Medical Necessity - Tobacco Use Smoking Status: Current every day smoker Assessment/Plan 25-year-old day 2 status post . Complicated by gestational h ypertension. Blood pressures controlled without medications. Asymptomatic, exam within normal limits. Signs and symptoms of preeclampsia reviewed. Patient to be discharged home today and follow-up 1 week blood pressure check in office.
--- NOTE | 2020-11-12 08:12 | NURSING ---
this nurse contacted this am regarding bp's of 153/106 and 151/104 in the right arm and 136/91 in the left arm, new order for Procardia 30mg xl daily and to evaluate bp every 4 hours.
[2020-11-12] MEDS: NIFEdipine 30 MG Tablet PO (08:35)
--- NOTE | 2020-11-12 11:43 | CASEMGMT ---
Social Work Assessment Labor and Delivery Unit Date of Referral: 11/10/2020 Time of Referral: 20:11 Referred By: Dr. Sy Schaefer Date of Intervention: 11/12/2020 Time of Intervention: 11:43 Reason for Referral: Mother of baby (MOB) with history of Anxiety, Depression, Bi-polar, suicide attempt. MOB with THC use early in . History obtained from: MOB, Chart, Nursing staff. Household composition: MOB (Ko Bah), Father of baby (FOB, Rich Mejia) and now this , Leatha Mejia to live in private home together. Patient's parent/guardian status: MOB and FOB have been together for 5 years. MOB reports to feel safe with FOB. MOB reports that was not plant and initially was ?a little freaked out? but able to collect self and became excited about . MOB reports to have a connection with infant. This is first child for both MOB and FOB. Medical History: MOB with history prior to delivery. MOB with history of Anxiety, Depression and Bi-polar as well as suicide attempt. MOB with vaginal induced delivery on 11/10/2020. Infant with apgars of 7 and 9 at 1min and 5min. to follow with Dr. Schaefer at [facility]. MOB plans to bottle feed. Educational Status: MOB denies any issues with comprehension or understanding. Financial Status: MOB denies any financial concerns. MOB works full-time as well as FOB. Infant Supplies: MOB reports to have needed infant supplies including a car seat and crib. Childcare/Caregiver(s): MOB plans to be primary caregiver for until returning to work. FOB to help with childcare as well as MOB?s family when MOB returns to work. Transportation: MOB denies any transportation concerns or needs. Programs/Agencies Involved: [facility]. MOB also utilizing [place]. This public health social worker exploring [facility] as a possible program for MOB/infant. MOB interested in [facility] referral. This public health social worker to make [facility] referral. Children Services/Legal Issues: MOB denies any current legal issues or concerns. Denies any history of children services involvement. Mental Health History: MOB does confirm to have diagnosis of Bi-polar, Anxiety and Depression. MOB reports to typically take medication, ?mood stabilizer? but to have stopped taking medication due to per doctor recommendation. MOB reports plan to return to managing Bi-polar/mental health with medication and reports to have ?done well? through after ?accepting? . MOB plans to bottle feed infant to be able to return to taking Bi-polar medication. MOB denies any active counseling services but does have a history of counseling. MOB reports to [facility] with [facility] and to see Alicia Morales N.P for medication management. MOB reports history of suicidal thoughts with last suicidal thought being ?at the beginning of .? MOB reports ?it was so unexpected.? MOB denies any suicidal attempts or plan to complete suicide at the beginning of or since. MOB reports ?there was some bumps? at the beginning of but ?we are excited now.? MOB reports history of suicide attempt ?years ago? as well as self-harming behavior but ?I am better now.? This public health social worker able to facilitate conversation with MOB about depression signs and symptoms. MOB reports to have already been spending time ?looking up and reading? about depression. Substance Use History: MOB does confirm to have been using alcohol and THC at beginning of . MOB attributes substance abuse at beginning of of ?not expecting to be .? MOB denies considering and ?we always wanted to keep her.? MOB denies any current substance abuse/use. MOB able to provide safety plan of not using THC/alcohol around infant if MOB would choose to use and to have infant with a non-using adult. MOB plans to bottle feed as well. Maternal and Drug Screens: MOB with positive tox screen on 03/24/2020 and 03/30/2020. MOB with negative tox screen on admission to labor and delivery unit. Infant with negative urine tox screen and pending meconium. PHQ9: Did not trigger. Family/Social Stressors: MOB denies any current stressors outside ?having to stay at the hospital longer.? MOB voices understanding as to reason for long hospital stay, due to MOB?s blood pressure and is willing to continue to stay ?just want to get home.? MOB wants to stay to ?be safe.? Support Systems: MOB reports to have positive support from FOB and family members. Depression and Anxiety/Shaken Baby/Safe Sleeping: MOB provided resources on depression/anxiety, shaken baby and safe sleeping as well as [facility] general resources. MOB responding appropriately to safe sleeping and shaken baby prompts. Safe Plan of Care for infant related to substance use: MOB plans to no longer use THC but if MOB would return plan would be to leave infant with a sober adult and to not use around infant. Infant to also be bottle fed. PLAN: to discharge to home with MOB and FOB. Referral to [facility] initiated by this public health social worker. Pending meconium results. Social work to continue to follow to make referral as indicated. Hector Novoa MSW, [place]
[2020-11-12] MEDS: Ibuprofen 600 MG Tablet PO ×2 (11:57→18:35)
--- NOTE | 2020-11-12 13:06 | NURSING ---
pt called this nurse and stated she felt lightheaded, bp obtained 129/88 pt also states it feels tight around her face, pt states she gets seasonal allergies and feels that could be part of the discomfort.
--- NOTE | 2020-11-12 16:08 | NURSING ---
pt is up in the shower at this time, denies headache or light headedness. significant other in the bathroom with her during shower, to be sure she doesnt get light headed.
== END 2020-11-12 19:20 | disposition home or self-care (01) | DRG 560 ==
LOC: WPOUT 04:35 → WP 18:14
PROVIDERS: Student in an Organized Health Care Education/Training Program; Admitting Provider Obstetrics & Gynecology; PCP Family Medicine; Visit Provider Obstetrics & Gynecology
DX: O13.4 Gestational [pregnancy-induced] hypertension without significant proteinuria, complicating childbirth (principal); O99.334 Smoking (tobacco) complicating childbirth; F17.290 Nicotine dependence, other tobacco product, uncomplicated; O70.0 First degree perineal laceration during delivery; Z3A.39 39 weeks gestation of pregnancy; Z37.0 Single live birth
CPT/HCPCS: 59025; 59050; 80307; 81001; 82565; 82570; 83615; 84112; 84156; 84450; 84460; 84550; 85025; 85610; 85730; 86850; 86900; 86901; 87426; 99218; J7120; A4216; G0378; J2405

== ENCOUNTER 2020-11-20 12:50 | Observation (INO) | payer MEDICAID, SELFPAY ==
[2020-11-10 04:10] VITALS: BMI 35.4
[2020-11-20] VITALS (73 sets, daily range): BP systolic 87–163; BP diastolic 48–101; PULSE 64–229; RESP 16–18; TEMP 36–36.8; O2SAT 80–100; BMI 31.4
[2020-11-20] MEDS: Lactated Ringers 1,000 ML 50 ML IV ×2 (13:35→22:33)
[2020-11-20] MEDS: Magnesium Sulfate 4gm/100mL 4 GM/100 ML IV.SOLN. IV (13:43)
[2020-11-20 13:52] LABS: Hematocrit 36.5 % (37-47); Hemoglobin 11.9 g/dL (12.0-15.0); Mean Corp Hgb Conc 32.6 g/dL (32-36); Mean Corpuscular Hgb 30.7 pg (27.0-32.0); Mean Corpuscular Volume 94.1 fL (81-99); Mean Platelet Vol. 9.4 fl (6.2-12.0); Platelet Count 467 K/mm3 (150-450); RBC Distribution Width CV 13.6 % (11.6-14.6); RBC Distribution Width SD 47.1 fl (35.1-43.9); Red Blood Count 3.88 M/mm3 (4.2-5.4); White Blood Count 10.1 K/mm3 (4.4-11.0)
[2020-11-20] MEDS: Magnesium Sulfate 4gm/100mL 2 GM/50 ML IV.SOLN. IV (14:05)
[2020-11-20] MEDS: Magnesium Sulfate 20 GM/500 ML BAG IV (14:20)
--- NOTE | 2020-11-20 14:41 | NURSING ---
1428- pt feeling not well- nauseated. warm, weak, hearing started to go, and pale
--- NOTE | 2020-11-20 14:50 | NURSING ---
1420-verified nehemiah gamez maintenance and started at 2gm/h
[2020-11-20 14:52] LABS: ALB/GLOB Ratio 0.8 RATIO (0.9-2.4); AST(SGOT) 12 U/L (15-37); Alanine Aminotransfer ALT/SGPT 30 U/L (13-56); Albumin, Serum 3.3 g/dL (3.2-5.0); Alkaline Phosphatase 89 U/L (45-117); Anion Gap 7 (5-15); BUN 16 mg/dL (7-18); BUN/Creat Ratio 21.7 RATIO (10-20); Chloride 105 mmol/L (98-107); Creatinine, Serum 0.74 mg/dL (0.55-1.02); EST Glomerular Filtration Rate 103 mL/min (>60); Est Glom Filt Rate - Afr Amer 124 mL/min (>60); Estimated Creatinine Clearance 92.72 ml/min; Globulin 4.4 g/dL (2.2-4.2); Glucose 90 mg/dL (74-106); LDH 217 U/L (84-246); Potassium 4.1 mmol/L (3.5-5.1); Protein, Total 7.7 g/dL (6.4-8.2); Sodium Level 136 mmol/L (136-145)
[2020-11-20] MEDS: Acetaminophen 500 MG Tablet 1000 MG PO (17:43)
--- NOTE | 2020-11-20 19:43 | PCM.HPOB.BLA ---
History and Physical Date of Admission: 11/20/20 Chief complaint: Elevated blood pressures, headache History of present illness: 25-year-old G1, P1 status post vacuum-assisted vaginal delivery on 11/10/2020 arrived to our office with severe range blood pressures 140s/110s along with at home blood pressures of 160/110. Patient with headache without visual changes. Denies nausea, vomiting, chest pain, shortness of breath, right upper quadrant pain. complicated by gestational hypertension Obstetric history: G1: Vacuum-assisted vaginal delivery at term 11/10/2020 Past medical history: Bipolar Medications: Procardia 30 mg daily Past surgical history: Left knee Allergies: Hydrocodone (nausea/vomiting) Family history: Denies history DVT or PE Social history: Former smoker, denies alcohol or drug use Review of systems: Besides above pertinent positives a full review of systems was performed and found to be negative Physical exam: Vital Signs Temp Pulse Resp BP BP Pulse Ox 11/20/20 19:23 229 H 80 11/20/20 19:22 92 18 125/72 H 98 11/20/20 18:19 98.2 F 113 H 16 113/66 99 11/20/20 18:18 114 H 99 11/20/20 18:17 97.5 F L 11/20/20 18:13 107 H 96 11/20/20 17:38 108 H 122/63 H 11/20/20 17:36 107 H 96 11/20/20 17:35 104 H 94 11/20/20 17:31 115 H 96 11/20/20 17:26 122 H 98 11/20/20 17:22 95 16 109/56 L 96 11/20/20 17:21 96 11/20/20 17:16 97 97 11/20/20 17:11 97 97 11/20/20 17:07 90 107/59 L 107/59 L 11/20/20 17:06 96 11/20/20 17:01 87 97 11/20/20 16:56 88 97 11/20/20 16:52 82 16 109/59 L 109/59 L 97 11/20/20 16:51 97 11/20/20 16:46 77 97 11/20/20 16:41 76 98 11/20/20 16:38 76 111/58 L 111/58 L 11/20/20 16:36 77 98 11/20/20 16:31 82 97 11/20/20 16:26 88 98 11/20/20 16:21 97.4 F L 87 18 111/61 98 11/20/20 16:17 85 113/58 L 113/58 L 11/20/20 16:09 90 113/56 L 113/56 L 11/20/20 15:47 74 129/80 H 125/79 H 11/20/20 15:32 74 125/79 H 11/20/20 15:17 72 18 114/73 114/73 11/20/20 15:02 81 116/79 116/79 11/20/20 14:50 86 98 11/20/20 14:46 78 18 133/89 H 133/89 H 100 11/20/20 14:45 79 100 11/20/20 14:44 77 139/87 H 11/20/20 14:42 83 136/84 H 11/20/20 14:40 82 18 134/89 H 134/89 H 100 11/20/20 14:38 79 131/88 H 11/20/20 14:36 81 125/80 H 11/20/20 14:35 84 16 127/92 H 127/92 H 100 11/20/20 14:32 76 97/56 L 97/56 L 11/20/20 14:30 78 16 91/54 L 91/54 L 95 11/20/20 14:28 16 11/20/20 14:27 69 16 87/48 L 94 11/20/20 14:26 65 94 11/20/20 14:20 16 11/20/20 14:16 100 18 137/98 H 137/98 H 11/20/20 14:10 91 99 11/20/20 14:05 18 11/20/20 14:01 88 18 138/100 H 138/100 H 98 11/20/20 14:00 95 98 11/20/20 13:55 90 97 11/20/20 13:51 90 93 11/20/20 13:50 94 99 11/20/20 13:46 97.6 F L 86 18 133/98 H 133/98 H 98 11/20/20 13:45 90 18 98 11/20/20 13:43 97.6 F L 18 98 11/20/20 13:37 88 18 156/97 H 156/97 H 11/20/20 13:25 88 163/101 H 163/101 H 11/20/20 13:09 88 122/97 H General: Normal-appearing no acute distress HEENT: Normocephalic atraumatic Cardiac/respiratory: No use of accessory muscles nonlabored breathing Abdomen: Soft, nontender negative right upper quadrant pain Extremities: No peripheral edema normal peripheral pulses. DTRs +2, negative clonus Psych: Normal affect normal demeanor nonpressured speech Assessment plan: 25 G1, P1 10 days now with preeclampsia with severe features based on severe range blood pressures. Patient previously with gestational hypertension given Procardia XL 30 mg at home. We will continue that medication at this time and consider increasing pending blood pressure control. Magnesium 6 g bolus at 2 g an hour started with hypotension flushing and nausea, magnesium stopped. Restarted at magnesium 1 g/h, blood pressure is now stable and patient symptoms much improved. We will continue magnesium for 24 hours. For mag level 6 hours after 1 g magnesium rate started. Help labs within normal limits. Will repeat tomorrow. Anxious will start Ativan as needed.
[2020-11-20] MEDS: proMETHazine 25 MG Tablet PO (20:31)
[2020-11-20 22:18] LABS: Magnesium 4.4 mg/dL (1.6-2.6)
--- NOTE | 2020-11-20 23:03 | PCM.PN.BLA ---
Progress Note Patient with mag level 4.4, nontherapeutic. Patient with hypotension when recently going to the bathroom. Overall still with blood pressures in the lower range. Based on this symptomatic hypotension when ambulating will not increase mag level. Patient could not tolerate therapeutic magnesium level at this time. Will titrate as needed. For mag level in the morning with help labs, will reassess at that time STROKE Vital Signs/Narrative: Vital Signs Temp Pulse Resp BP Pulse Ox 11/20/20 22:31 97.2 F L 64 100/56 L 97 11/20/20 22:30 97.2 F L 66 18 100/56 L 97 11/20/20 21:31 85 96 11/20/20 21:30 83 96/52 L 11/20/20 21:29 97.2 F L 86 16 96/52 L 97 11/20/20 20:25 98 129/77 H 95 11/20/20 20:24 97.5 F L 11/20/20 20:23 97.5 F L 99 16 129/77 H 96 11/20/20 19:23 229 H 80 11/20/20 19:22 92 18 125/72 H 98
[2020-11-21] VITALS (41 sets, daily range): BP systolic 101–149; BP diastolic 53–84; PULSE 60–99; RESP 14–18; TEMP 35.7–36.9; O2SAT 92–98
[2020-11-21 05:45] LABS: Absolute Lymphocyte Count 2.79 X10^3/uL (0.83-4.51); Absolute Neutrophil Count 5.8 X10^3/uL (2.0-7.7); Basophil# 0.05 X10^3/uL; Basophil% 0.5 % (0-1); Eosinophils% 2.1 % (0-5); Hematocrit 34.2 % (37-47); Hemoglobin 11.1 g/dL (12.0-15.0); Lymphocyte # 2.79 X10^3/ul (4.0); Lymphocyte % 29.2 % (19-41); Mean Corp Hgb Conc 32.5 g/dL (32-36); Mean Corpuscular Hgb 30.8 pg (27.0-32.0); Monocyte# 0.65 X10^3/uL; Monocyte% 6.8 % (0-10); NRBC Flagged by Analyzer 0 % (0-5); Neutrophil # 5.83 X10^3/uL (2.7-7.7); Neutrophil % 61.2 % (47-70); Platelet Count 437 K/mm3 (150-450); RBC Distribution Width CV 13.6 % (11.6-14.6); RBC Distribution Width SD 47.7 fl (35.1-43.9); White Blood Count 9.5 K/mm3 (4.4-11.0)
[2020-11-21 06:02] LABS: ALB/GLOB Ratio 0.7 RATIO (0.9-2.4); AST(SGOT) 12 U/L (15-37); Alanine Aminotransfer ALT/SGPT 24 U/L (13-56); Albumin, Serum 2.9 g/dL (3.2-5.0); Alkaline Phosphatase 83 U/L (45-117); Anion Gap 4 (5-15); BUN 12 mg/dL (7-18); BUN/Creat Ratio 16.5 RATIO (10-20); Calcium,Total 7.4 mg/dL (8.5-10.1); Chloride 107 mmol/L (98-107); Creatinine, Serum 0.73 mg/dL (0.55-1.02); EST Glomerular Filtration Rate 104 mL/min (>60); Est Glom Filt Rate - Afr Amer 126 mL/min (>60); Estimated Creatinine Clearance 93.99 ml/min; Globulin 3.9 g/dL (2.2-4.2); Glucose 91 mg/dL (74-106); LDH 177 U/L (84-246); Magnesium 4.8 mg/dL (1.6-2.6); Potassium 3.9 mmol/L (3.5-5.1); Protein, Total 6.8 g/dL (6.4-8.2); Sodium Level 138 mmol/L (136-145)
--- NOTE | 2020-11-21 09:15 | PN.OBGYN_ITS ---
- Physical Exam Vitals/I&O's: Vital Signs Temp Pulse Resp BP Pulse Ox 97.0 F L 82 14 117/68 95 11/21/20 08:40 11/21/20 08:40 11/21/20 08:40 11/21/20 08:40 11/21/20 08:40 Oxygen Delivery Method Room Air Weight: 171 lb 11.841 oz Body Mass Index (BMI) 31.4 Intake and Output for Last 24 Hours 11/19/20 11/20/20 11/21/20 23:59 23:59 23:59 Intake Total 1690.52 / 1690.52 328.75 / 328.75 Output Total 800 / 800 350 / 350 Balance 890.52 / 890.52 -21.25 / -21.25 General: Alert, Oriented x3, Cooperative, No apparent distress HEENT: Atraumatic, Normocephalic Oral: Moist Mucosa Neck: Supple Abdomen: Soft, Non Tender Extremities: No clubbing, No cyanosis, No edema Neurological: Neuro grossly intact Psych/Mental Status: Normal Affect, Appropriate, Alert and oriented to time, place, person, mood and affect Laboratory Results 11/20/20 13:35: WBC 10.1, RBC 3.88 L, Hgb 11.9 L, Hct 36.5 L, MCV 94.1, MCH 30.7, MCHC 32.6, RDW Std Deviation 47.1 H, RDW Coeff of Cinthya 13.6, Plt Count 467 H, MPV 9.4 11/20/20 13:35: Sodium Cancelled, Potassium Cancelled, Chloride Cancelled, Carbon Dioxide Cancelled, Anion Gap Cancelled, BUN Cancelled, Creatinine Cancelled, Estim Creat Clear Calc Cancelled, Est GFR (MDRD) Af Amer Cancelled, Est GFR (MDRD) Non-Af Cancelled, BUN/Creatinine Ratio Cancelled, Glucose Cancelled, Calcium Cancelled, Total Bilirubin Cancelled, AST Cancelled, ALT Cancelled, Alkaline Phosphatase Cancelled, Total Protein Cancelled, Albumin Cancelled, Globulin Cancelled, Albumin/Globulin Ratio Cancelled 11/20/20 13:35: Lactate Dehydrogenase Cancelled 11/20/20 14:13: Sodium 136, Potassium 4.1, Chloride 105, Carbon Dioxide 24.0, Anion Gap 7, BUN 16, Creatinine 0.74, Estim Creat Clear Calc 92.72, Est GFR (MDRD) Af Amer 124, Est GFR (MDRD) Non-Af 103, BUN/Creatinine Ratio 21.7 H, Glucose 90, Calcium 9.0, Total Bilirubin 0.60, AST 12 L, ALT 30, Alkaline Phosphatase 89, Lactate Dehydrogenase 217, Total Protein 7.7, Albumin 3.3, Globulin 4.4 H, Albumin/Globulin Ratio 0.8 L 11/20/20 21:55: Magnesium 4.4 H 11/21/20 05:40: Sodium 138, Potassium 3.9, Chloride 107, Carbon Dioxide 27.0, Anion Gap 4 L, BUN 12, Creatinine 0.73, Estim Creat Clear Calc 93.99, Est GFR (MDRD) Af Amer 126, Est GFR (MDRD) Non-Af 104, BUN/Creatinine Ratio 16.5, Glucose 91, Calcium 7.4 L, Magnesium 4.8 H, Total Bilirubin 0.30, AST 12 L, ALT 24, Alkaline Phosphatase 83, Lactate Dehydrogenase 177, Total Protein 6.8, Albumin 2.9 L, Globulin 3.9, Albumin/Globulin Ratio 0.7 L 11/21/20 05:40: WBC 9.5, RBC 3.60 L, Hgb 11.1 L, Hct 34.2 L, MCV 95.0, MCH 30.8, MCHC 32.5, RDW Std Deviation 47.7 H, RDW Coeff of Cinthya 13.6, Plt Count 437, MPV 9.0, Immature Gran % (Auto) 0.200, Neut % (Auto) 61.2, Lymph % (Auto) 29.2, [place] % (Auto) 6.8, Eos % (Auto) 2.1, Baso % (Auto) 0.5, Absolute Neuts (auto) 5.8, Absolute Lymphs (auto) 2.79, Nucleated RBC % 0 Current Medications Acetaminophen (Acetaminophen 500 Mg Tablet) 1,000 mg PO Q6H PRN PRN PRN Reason: Pain Score 1-10 Last Admin: 11/20/20 17:43 Dose: 1,000 mg Documented by: Lactated Ringer's () 1,000 mls @ 50 mls/hr IV .Q20H NANCY Last Admin: 11/20/20 22:33 Dose: 50 mls/hr Documented by: Calcium Gluconate 1 gm/ N/A 10 mls @ 2 mls/min IV X1 PRN PRN Reason: Magnesium Toxicity Magnesium Sulfate (20gm/500ml) 20 gm in 500 mls @ 25 mls/hr IV .Q20H NANCY; Protocol Last Infusion: 11/21/20 08:40 Dose: 1 gm/hr, 25 mls/hr Documented by: Lorazepam (Lorazepam 1 Mg Tablet) 1 mg PO Q6H PRN PRN PRN Reason: ANXIETY/INSOMNIA Midazolam HCl (Midazolam 2 Mg/2 Ml Syringe) 2 mg IV X1 PRN PRN Reason: Seizure Activity Ondansetron HCl (Ondansetron 4 Mg/2 Ml Vial) 4 mg IV Q4H PRN PRN Reason: NAUSEA Promethazine HCl (Promethazine 25 Mg Tablet) 25 mg PO Q4H PRN PRN PRN Reason: NAUSEA/VOMITING Last Admin: 11/20/20 20:31 Dose: 25 mg Documented by: Medical Necessity - Tobacco Use Smoking Status: Current every day smoker Assessment/Plan day 11 with severe preeclampsia based on severe range blood pressures. Continue magnesium for 24 hours. Magnesium level this morning now therapeutic, previously yesterday with hypotension with magnesium and symptomatic. Patient desires to DC Procardia XL, will consider labetalol after magnesium is off. Likely will discharge home tomorrow on p.o. medications
[2020-11-21] MEDS: Acetaminophen 500 MG Tablet 1000 MG PO (09:37)
[2020-11-21] MEDS: LORazepam 1 MG Tablet PO (09:45)
[2020-11-21] MEDS: Magnesium Sulfate 20 GM/500 ML BAG IV (11:33)
[2020-11-21] MEDS: Ondansetron 4 MG/2 ML Vial IV (21:01)
[2020-11-21] MEDS: proMETHazine 25 MG Tablet PO (21:44)
[2020-11-21] MEDS: Calcium Carbonate 500 MG Tablet 1000 MG PO (22:02)
[2020-11-22 04:53] VITALS: BP 109/66; PULSE 72
[2020-11-22 04:54] VITALS: BP 109/66; PULSE 72; RESP 16; TEMP 37.3
--- NOTE | 2020-11-22 05:16 | NURSING ---
0455- Pt. reports that she's continuing to have nausea and indigestion, and has had diarrhea twice this morning. Zofran, Phenergan, and Tums were given overnight to help with the nausea and indigestion. Pt. reports its a little better, but that her stomach just hurts.
[2020-11-22 05:30] LABS: Absolute Lymphocyte Count 2.89 X10^3/uL (0.83-4.51); Absolute Neutrophil Count 5.2 X10^3/uL (2.0-7.7); Basophil# 0.05 X10^3/uL; Basophil% 0.6 % (0-1); Eosinophil# 0.18 X10^3/uL; Hemoglobin 10.9 g/dL (12.0-15.0); Lymphocyte # 2.89 X10^3/ul (0.83-4.51); Lymphocyte % 32.6 % (19-41); Mean Corp Hgb Conc 32.1 g/dL (32-36); Mean Corpuscular Hgb 31.1 pg (27.0-32.0); Mean Corpuscular Volume 96.9 fL (81-99); Mean Platelet Vol. 8.9 fl (6.2-12.0); Monocyte# 0.56 X10^3/uL; Monocyte% 6.3 % (0-10); NRBC Flagged by Analyzer 0 % (0-5); Neutrophil # 5.16 X10^3/uL (2.7-7.7); Neutrophil % 58.3 % (47-70); Platelet Count 423 K/mm3 (150-450); RBC Distribution Width CV 13.5 % (11.6-14.6); RBC Distribution Width SD 48.1 fl (35.1-43.9); Red Blood Count 3.51 M/mm3 (4.2-5.4); White Blood Count 8.9 K/mm3 (4.4-11.0)
[2020-11-22 05:46] LABS: ALB/GLOB Ratio 0.8 RATIO (0.9-2.4); AST(SGOT) 11 U/L (15-37); Alanine Aminotransfer ALT/SGPT 24 U/L (13-56); Albumin, Serum 2.9 g/dL (3.2-5.0); Alkaline Phosphatase 81 U/L (45-117); Anion Gap 5 (5-15); BUN 13 mg/dL (7-18); BUN/Creat Ratio 16.1 RATIO (10-20); Calcium,Total 8.6 mg/dL (8.5-10.1); Chloride 110 mmol/L (98-107); Creatinine, Serum 0.81 mg/dL (0.55-1.02); EST Glomerular Filtration Rate 92 mL/min (>60); Est Glom Filt Rate - Afr Amer 112 mL/min (>60); Globulin 3.8 g/dL (2.2-4.2); Glucose 85 mg/dL (74-106); LDH 177 U/L (84-246); Potassium 4.2 mmol/L (3.5-5.1); Protein, Total 6.7 g/dL (6.4-8.2); Sodium Level 140 mmol/L (136-145)
[2020-11-22 07:37] VITALS: BP 123/79; PULSE 81; TEMP 36.8
--- NOTE | 2020-11-22 07:41 | PN.OBGYN_ITS ---
Subjective: No overnight complaints. Patient asymptomatic. Denies headache, visual changes, chest pain, shortness of breath, nausea vomiting, right upper quadrant pain. - Physical Exam Vitals/I&O's: Vital Signs Temp Pulse Resp BP Pulse Ox 98.2 F 81 16 123/79 H 97 11/22/20 07:37 11/22/20 07:37 11/22/20 04:54 11/22/20 07:37 11/21/20 19:55 Oxygen Delivery Method Room Air Weight: 171 lb 11.841 oz Body Mass Index (BMI) 31.4 Intake and Output for Last 24 Hours 11/20/20 11/21/20 11/22/20 23:59 23:59 23:59 Intake Total 1690.52 / 1690.52 1520.41 / 1520.41 Output Total 800 / 800 675 / 675 Balance 890.52 / 890.52 845.41 / 845.41 General: Alert, Oriented x3, Cooperative, No apparent distress HEENT: Atraumatic, Normocephalic Oral: Moist Mucosa Neck: Supple Extremities: No clubbing, No cyanosis Neurological: Neuro grossly intact Psych/Mental Status: Normal Affect, Appropriate, Alert and oriented to time, place, person, mood and affect Laboratory Results 11/22/20 05:25: Sodium 140, Potassium 4.2, Chloride 110 H, Carbon Dioxide 25.0, Anion Gap 5, BUN 13, Creatinine 0.81, Estim Creat Clear Calc 84.70, Est GFR (MDRD) Af Amer 112, Est GFR (MDRD) Non-Af 92, BUN/Creatinine Ratio 16.1, Glucose 85, Calcium 8.6, Total Bilirubin 0.20, AST 11 L, ALT 24, Alkaline Phosphatase 81, Lactate Dehydrogenase 177, Total Protein 6.7, Albumin 2.9 L, Globulin 3.8, Albumin/Globulin Ratio 0.8 L 11/22/20 05:25: WBC 8.9, RBC 3.51 L, Hgb 10.9 L, Hct 34.0 L, MCV 96.9, MCH 31.1, MCHC 32.1, RDW Std Deviation 48.1 H, RDW Coeff of Cinthya 13.5, Plt Count 423, MPV 8.9, Immature Gran % (Auto) 0.200, Neut % (Auto) 58.3, Lymph % (Auto) 32.6, [place] % (Auto) 6.3, Eos % (Auto) 2.0, Baso % (Auto) 0.6, Absolute Neuts (auto) 5.2, Absolute Lymphs (auto) 2.89, Nucleated RBC % 0 Current Medications Acetaminophen (Acetaminophen 500 Mg Tablet) 1,000 mg PO Q6H PRN PRN PRN Reason: Pain Score 1-10 Last Admin: 11/21/20 09:37 Dose: 1,000 mg Documented by: Calcium Carbonate (Calcium Carbonate 500 Mg Tablet) 1,000 mg PO Q4H PRN PRN PRN Reason: HEARTBURN Last Admin: 11/21/20 22:02 Dose: 1,000 mg Documented by: Lorazepam (Lorazepam 1 Mg Tablet) 1 mg PO Q6H PRN PRN PRN Reason: ANXIETY/INSOMNIA Last Admin: 11/21/20 09:45 Dose: 1 mg Documented by: Ondansetron HCl (Ondansetron 4 Mg/2 Ml Vial) 4 mg IV Q4H PRN PRN Reason: NAUSEA Last Admin: 11/21/20 21:01 Dose: 4 mg Documented by: Promethazine HCl (Promethazine 25 Mg Tablet) 25 mg PO Q4H PRN PRN PRN Reason: NAUSEA/VOMITING Last Admin: 11/21/20 21:44 Dose: 25 mg Documented by: Medical Necessity - Tobacco Use Smoking Status: Current every day smoker Assessment/Plan day 12 admitted for preeclampsia with severe features based on severe range blood pressures. Patient status post 24 hours of magnesium. Patient now with borderline hypotension overall normal blood pressures. Currently on no medications previously on Procardia XL. With daily blood pressure checks. If blood pressures begin to be elevated suggest labetalol. Educated patient on warning signs of preeclampsia. Blood pressure check in 1 week. Home today
--- NOTE | 2020-11-22 07:42 | DCINST_ITS ---
Discharge Diet: No Restrictions Discharge Activity: Return to Normal Activity, May Drive, May Shower May resume sexual activity in: 4-6 weeks Weight Bearing Status: Weight bearing as tolerated Call your doctor if your incision/area has: Continuous Slow Oozing, Foul Smelling Discharge Call your doctor if you observe: Fever of 101 or Higher, Shortness of breath, Chest pain Additional Instructions: If you experience any of the following, contact your healthcare provider. * Bleeding that soaks a pad every hour for 2 hours * Fever 100.4 or higher * Unrelieved incision or abdominal pain * Swelling, redness, discharge or bleeding from your incision or episiotomy site * Your incision begins to separate * Problems urinating (including inability to urinate or burning while urinating). * Visual changes * Severe headache * Flu-like symptoms * Pain or redness in one of both of your breasts * Pain, warmth, tenderness or swelling in your legs, especially the calf area * Frequent nausea and vomiting * Symptoms of depression or anxiety If you experience any of the following, call 911 or go to the nearest Emergency Room. * Chest pain * Problems breathing * Seizure activity * Partial or complete paralysis of a body part, slurred speech, weakness or drooping of the face, or a sudden inability to walk or hold your balance Allergies/Adverse Reactions: Allergies acetaminophen Allergy (Verified 11/20/20 13:10) Vomiting gluten Allergy (Verified 11/20/20 13:10) Vomiting Medications to take at Discharge Pnv No.95/Ferrous Fum/Folic AC [ Formula] 1 ea PO DAILY 03/28/20 Nifedipine [Procardia Xl] 30 mg PO DAILY #30 tab.er.24 11/12/20 Please Follow Up With: Sy Schaefer MD When: 1 week for visit and blood pressure check Primary Care Physician: Charly Nassar MD [Primary Care Provider] - Test Results: Test results from this visit will be discussed in further detail at your follow- up appointment, if applicable.
[2020-11-22 07:47] VITALS: BP 123/79; PULSE 80; RESP 18; TEMP 36.8
--- NOTE | 2020-11-22 09:24 | NURSING ---
naveen #[id number] removed from baby. Grandmother at bedside and is support person. Taking baby off of floor. Will return
--- NOTE | 2020-11-22 11:35 | NURSING ---
1120 at home med instructions per office. Called in and spoke with nurse and message left. Will talk with Dr. Robison and return call. Patient D/C'd per order and will call and update patient when office returns call
--- NOTE | 2020-11-22 13:19 | NURSING ---
Called office again. Spoke with Dr. Ramone Schaefer. Told to tell patient to continue to monitor BP's at home and to call office if BP 140/90 or greater and only needing one of those numbers to be higher. This nurse called and spoke to oK on phone. Instructions relayed and verbalized understanding
== END 2020-11-22 11:20 | disposition home or self-care (01) | DRG 561 ==
PROVIDERS: Admitting Provider Obstetrics & Gynecology; PCP Family Medicine; Referring Provider Obstetrics & Gynecology; Visit Provider Obstetrics & Gynecology
DX: O14.15 Severe pre-eclampsia, complicating the puerperium (principal); F17.200 Nicotine dependence, unspecified, uncomplicated
CPT/HCPCS: 96365; 96366 ×2; 80053; 83615; 83735; 85025; 85027; J7120; J2405

== ENCOUNTER → 2020-12-18 | Outpatient (CLI) | payer MEDICAID, SELFPAY ==
[2020-11-20 13:25] VITALS: BMI 31.4
[2020-12-21 14:26] LABS: HPV Reflexed? NOT INDICATED
== END | disposition home or self-care (01) ==
LOC: LABSPEC 12-19 11:31
PROVIDERS: PCP Family Medicine; Visit Provider Obstetrics & Gynecology
DX: Z12.4 Encounter for screening for malignant neoplasm of cervix (principal)
CPT/HCPCS: 88175; G0145

== ENCOUNTER 2021-04-12 23:16 | Emergency (ER) | payer BC, MEDICAID, SELFPAY ==
[2021-04-12 23:17] VITALS: BP 126/89; PULSE 111; RESP 20; TEMP 36.3; O2SAT 94; BMI 30.2
--- NOTE | 2021-04-12 23:32 | EDS_ITS ---
HPI HPI - Female History of Present Illness Chief Complaint: Flank Pain Informant: patient Associated Symptoms Last known menstrual period: 4 weeks. Due to start now. Narrative Narrative: Patient presents with left flank pain. This started relatively quickly about 730 this evening. It waxes and wanes but generally worsens. When the pain was really bad she did get nauseated and have some dry heaves. She has not noticed a change in her urine color but also did not look. No dysuria or frequency. She has never had this before. No anterior abdominal pain. No pelvic pain. No recent injury. She has never had a kidney stone but she does have a strong family history of these. Nothing makes the symptoms better or worse. PFSH PFSH Home Medications PNV cmb#95-ferrous fumarate-FA 1 ea PO DAILY 03/28/20 [History Last Taken Unknown] cyclobenzaprine 10 mg PO BID PRN #10 tab 04/13/21 [Rx Last Taken Unknown] naproxen 500 mg PO BID #20 tab 04/13/21 [Rx Last Taken Unknown] Allergy/AdvReac Type Severity Reaction Status Date / Time acetaminophen Allergy Vomiting Verified 04/12/21 23:17 gluten Allergy Vomiting Verified 04/12/21 23:17 Social History Smoking Status: Current every day smoker tobacco type: e-cigarettes ROS ROS ED Constitutional Constitutional ED: Denies fever(s) ENT ENT ED: Denies rhinorrhea Cardiovascular Cardiovascular: Denies chest pain Respiratory/Chest Respiratory/Chest: Denies cough or dyspnea Gastrointestinal Gastrointestinal: Reports nausea and vomiting; Denies abdominal pain or diarrhea Genitourinary Genitourinary ED: Reports other Details: See history of present illness. ; Denies dysuria, hematuria or urinary frequency Musculoskeletal Musculoskeletal: Denies myalgias Integumentary Denies rash Neurologic Neurologic: Denies paresthesias or weakness Endocrine Endocrinology: Denies polydipsia or polyuria Hematologic/Lymphatic Hematologic/Lymphatic: Denies easy bruising Allergic/Immunologic Allergic/Immunologic ED: Denies urticaria EXAM Physical Exam Const Vital Signs: 04/12/21 23:17 04/13/21 01:30 Temperature 97.4 F L Temperature Source Temporal Pulse Rate 111 H 88 Respiratory Rate 20 H 16 Blood Pressure 126/89 H 121/71 H Blood Pressure Mean 101 87 Pulse Ox 94 100 Oxygen Delivery Method Room Air Room Air Positive well nourished and well developed General Appearance ED: well developed and NAD HEENT Reports moist mucous membranes Negative for tenderness Eyes EOMs intact bilaterally Resp normal respiratory effort and clear to auscultation bilaterally Cardio regular rate and regular rhythm GI normal to inspection, nondistended, normoactive bowel sounds, soft to palpation, non-tender and non-distended Narrative: Patient does have left-sided CVA tenderness. There is no erythema, vesicles or rash or visual skin changes. Back/Spine General Back: CVA tenderness Extremity normal to inspection Neuro oriented x3 Sensorium / Orientation: alert Psych mental status grossly normal Skin no rashes or lesions noted MDM MDM MDM Narrative Medical decision making narrative: Blood work showed a mild nonspecific elevation of her white count. Urine was clean. is negative. Electrolytes showed no marked abnormalities. CT scan showed a 3 cm left ovarian cyst but she does not have any pain up front or in the pelvic area. She does have pain in the left paraspinals. It is sore with even light touch which leads me to believe this is more musculoskeletal. We did do the scan because she states she had had pain like this and there is a very strong family history of kidney stones. I think we can treat her with nonsteroidal and muscle relaxants. We discussed returning with worsening pain, numbness, vomiting, fevers or other concerns. Lab Data Attestation: I reviewed the patient's lab results. Labs: Laboratory Results - last 24 hr 04/12/21 04/12/21 04/12/21 23:22 23:22 23:34 WBC 12.6 H RBC 4.39 Hgb 13.3 Hct 39.1 MCV 89.1 MCH 30.3 MCHC 34.0 RDW Std Deviation 48.8 H RDW Coeff of Cinthya 15.0 H Plt Count 320 MPV 10.7 Immature Gran % (Auto) 0.200 Neut % (Auto) 60.5 Lymph % (Auto) 31.2 [place] % (Auto) 6.3 Eos % (Auto) 1.4 Baso % (Auto) 0.4 Absolute Neuts (auto) 7.7 Absolute Lymphs (auto) 3.94 Nucleated RBC % 0 Sodium Potassium Chloride Carbon Dioxide Anion Gap BUN Creatinine Estim Creat Clear Calc Est GFR (MDRD) Af Amer Est GFR (MDRD) Non-Af BUN/Creatinine Ratio Glucose Calcium Serum , Qual NEGATIVE Urine Color Yellow Urine Clarity Clear Urine pH 6.0 Ur Specific [place] 1.015 Urine Protein 15 H Urine Glucose (UA) Normal Urine Ketones Negative Urine Occult Blood Negative Urine Nitrite Negative Urine Bilirubin Negative Urine Urobilinogen Normal Ur Leukocyte Esterase 25 H Urine RBC 0 SEEN Urine WBC 0 SEEN Ur Squamous Epith Cells 0-5 SEEN Urine Bacteria RARE Urine Mucus 0 SEEN 04/12/21 23:34 WBC RBC Hgb Hct MCV MCH MCHC RDW Std Deviation RDW Coeff of Cinthya Plt Count MPV Immature Gran % (Auto) Neut % (Auto) Lymph % (Auto) [place] % (Auto) Eos % (Auto) Baso % (Auto) Absolute Neuts (auto) Absolute Lymphs (auto) Nucleated RBC % Sodium 137 Potassium 3.7 Chloride 107 Carbon Dioxide 23.0 Anion Gap 7 BUN 13 Creatinine 0.72 Estim Creat Clear Calc 95.29 Est GFR (MDRD) Af Amer 128 Est GFR (MDRD) Non-Af 106 BUN/Creatinine Ratio 18.2 Glucose 113 H Calcium 9.0 Serum , Qual Urine Color Urine Clarity Urine pH Ur Specific [place] Urine Protein Urine Glucose (UA) Urine Ketones Urine Occult Blood Urine Nitrite Urine Bilirubin Urine Urobilinogen Ur Leukocyte Esterase Urine RBC Urine WBC Ur Squamous Epith Cells Urine Bacteria Urine Mucus Radiography Diagnostic Testing: Radiology Impression Abdomen/Pelvis CT 04/13/21 23:30 IMPRESSION: Low-attenuation lesion in the left ovary measures 3 cm likely represent a cyst. Electronically Signed: Freda Dennis MD at 1:24 EDT Tel , Service support , Discharge Plan Triage Chief Complaint: Flank Pain ED Provider: Oscar Villalba Dx/Rx/DC Orders Clinical Impression: Acute left-sided back pain Instructions: ED Flank Pain, Uncertain Cause Prescriptions: New cyclobenzaprine 10 mg tablet 10 mg PO BID PRN (Reason: muscle spasm) Qty: 10 RF: 0 naproxen 500 MG tablet 500 mg PO BID Qty: 20 RF: 0 No Action PNV cmb#95-ferrous fumarate-FA 1 EACH tablet 1 ea PO DAILY RF: 0 Primary Care Provider: Charly Nassar Referrals: Charly Nassar MD [Primary Care Provider] - 3-5 Days Disposition Disposition: Home, Self Care
[2021-04-12 23:40] LABS: Internal QC Validated? YES +Cl - CLEAR BKGD; Pregnancy, Serum, hCG Quali. NEGATIVE Negative
[2021-04-12 23:51] LABS: Absolute Lymphocyte Count 3.94 X10^3/uL (0.83-4.51); Absolute Neutrophil Count 7.7 X10^3/uL (2.0-7.7); Basophil# 0.05 X10^3/uL; Basophil% 0.4 % (0-1); Eosinophil# 0.18 X10^3/uL; Eosinophils% 1.4 % (0-5); Hematocrit 39.1 % (37-47); Hemoglobin 13.3 g/dL (12.0-15.0); Lymphocyte # 3.94 X10^3/ul (0.83-4.51); Lymphocyte % 31.2 % (19-41); Mean Corpuscular Hgb 30.3 pg (27.0-32.0); Mean Corpuscular Volume 89.1 fL (81-99); Mean Platelet Vol. 10.7 fl (6.2-12.0); Monocyte# 0.79 X10^3/uL; Monocyte% 6.3 % (0-10); NRBC Flagged by Analyzer 0 % (0-5); Neutrophil # 7.65 X10^3/uL (2.7-7.7); Neutrophil % 60.5 % (47-70); Platelet Count 320 K/mm3 (150-450); RBC Distribution Width SD 48.8 fl (35.1-43.9); Red Blood Count 4.39 M/mm3 (4.2-5.4); White Blood Count 12.6 K/mm3 (4.4-11.0)
[2021-04-12] MEDS: 0.9% Normal Saline 1,000 ML 1000 ML IV (23:55)
[2021-04-12] MEDS: Ondansetron 4 MG/2 ML Vial IV (23:56)
[2021-04-12] MEDS: Ketorolac 15 MG/ML Vial IV (23:56)
--- NOTE | 2021-04-12 23:56 | ED.RN ---
[facility] DOES NOT WORK IN THIS ROOM.
[2021-04-13 00:04] LABS: Mucous, Urine 0 SEEN /hpf (<or=2+); Red Blood Cells-Urine 0 SEEN /hpf (0-5); White Blood Cells 0 SEEN /hpf (0-5)
[2021-04-13 00:05] LABS: Anion Gap 7 (5-15); BUN 13 mg/dL (7-18); BUN/Creat Ratio 18.2 RATIO (10-20); Chloride 107 mmol/L (98-107); Creatinine, Serum 0.72 mg/dL (0.55-1.02); EST Glomerular Filtration Rate 106 mL/min (>60); Est Glom Filt Rate - Afr Amer 128 mL/min (>60); Estimated Creatinine Clearance 95.29 ml/min; Glucose 113 mg/dL (74-106); Potassium 3.7 mmol/L (3.5-5.1); Sodium Level 137 mmol/L (136-145)
[2021-04-13 00:07] LABS: Color, Urine Yellow (Yellow); Glucose, Dipstick Normal (Normal); Ketone-Dipstick Negative (Negative); Leukocyte Esterase-Dipstick 25 /ul (Negative); Nitrite-Dipstick Negative (Negative); Occult Blood-Urine Negative /ul (Negative); Protein-Dipstick 15 mg/dl (Negative); Specific Gravity, Urine 1.015 (1.002-1.030); Urine Bilirubin Dipstick Negative (Negative); Urine Clarity Clear (Clear); Urine Urobilinogen Normal (Normal)
[2021-04-13 00:16] LABS: Bacteria RARE /hpf (None Seen); Squamous Epithelial Cells - UA 0-5 SEEN /hpf (5-10)
[2021-04-13 01:30] VITALS: BP 121/71; PULSE 88; RESP 16; O2SAT 100
[2021-04-13] MEDS: cycloBENZAPRine HCl 10 MG Tablet PO (01:54)
[2021-04-13] MEDS: Acetaminophen 500 MG Tablet 1000 MG PO (01:54)
--- NOTE | 2021-04-13 23:30 | CT_ITS ---
STUDY: CT ABDOMEN AND PELVIS WITHOUT CONTRAST REASON FOR EXAM: Female, 25 years old. left flank pain RADIATION DOSAGE (If Supplied By Facility): CTDIvol = ( 10.67 ) mGy, DLP = ( 541.37 ) mGycm TECHNIQUE: Transaxial images were obtained from the dome of the diaphragm to the symphysis pubis without oral contrast, and without intravenous contrast. Sagittal and coronal images were reconstructed. Individualized dose optimization techniques were used for this CT. COMPARISON: None. FINDINGS: The visualized lung bases are unremarkable. The visualized portions of the heart are within normal limits. Normal liver. Normal gallbladder and extrahepatic biliary system. Normal spleen. Normal pancreas. Normal bilateral adrenal glands. Normal right kidney. Normal left kidney. Normal visualized stomach. Normal small intestine. Normal colon. The appendix is visualized and appears normal. Normal abdominal aorta. Normal inferior vena cava. Normal retroperitoneum. Normal urinary bladder. Low-attenuation lesion in the left ovary measures 3 cm likely represent a cyst. Normal uterus and right ovary. Normal abdominal wall. Normal osseous structures. CT/Abdomen/Pelvis without Cont IMPRESSION: Low-attenuation lesion in the left ovary measures 3 cm likely represent a cyst. Electronically Signed: Freda Dennis MD at 1:24 EDT Tel , Service support ,
== END 2021-04-13 01:58 | disposition home or self-care (01) ==
PROVIDERS: Emergency Provider Emergency Medicine; PCP Family Medicine
DX: M54.9 Dorsalgia, unspecified (principal); F17.290 Nicotine dependence, other tobacco product, uncomplicated
CPT/HCPCS: 74176; 80048; 81001; 84703; 85025; 96361; 96374; 96375; 99284; J7030; A4216; J2405

== ENCOUNTER 2021-09-17 21:54 | Emergency (ER) | payer BC, MEDICAID, SELFPAY ==
[2021-09-17 21:54] VITALS: BP 126/84; PULSE 98; RESP 18; TEMP 36.3; O2SAT 97; BMI 29.2
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
[2021-09-17] MEDS: cycloBENZAPRine HCl 10 MG Tablet PO (22:53)
== END 2021-09-17 23:31 | disposition home or self-care (01) ==
PROVIDERS: Emergency Provider Emergency Medicine; PCP Family Medicine; Visit Provider Emergency Medicine
DX: S06.0X0A Concussion without loss of consciousness, initial encounter (principal); S16.1XXA Strain of muscle, fascia and tendon at neck level, initial encounter; V43.52XA Car driver injured in collision with other type car in traffic accident, initial encounter; Y92.488 Other paved roadways as the place of occurrence of the external cause; Z79.1 Long term (current) use of non-steroidal anti-inflammatories (NSAID); Z79.899 Other long term (current) drug therapy; F17.290 Nicotine dependence, other tobacco product, uncomplicated
CPT/HCPCS: 70450; 72125; 99282

== ENCOUNTER 2022-04-06 00:14 | Emergency (ER) | payer BC, MEDICAID, SELFPAY ==
[2022-04-06 00:16] VITALS: BP 134/90; PULSE 84; RESP 18; TEMP 36.3; O2SAT 96; BMI 31.6
--- NOTE | 2022-04-06 00:38 | RAD_ITS ---
STUDY: X-RAY - LEFT KNEE REASON FOR EXAM: Female, 26 years old. pain Other, NKI C/O PAIN TO POSTERIOR KNEE AND ANTERIORLY AROUND LT PATELLA X 5 DAYS TECHNIQUE: 4 view(s) of the knee. COMPARISON: None. FINDINGS: BONES: Surgical hardware with 2 screws in the proximal tibia medial plateau. No fracture demonstrated. There is a small density approximately 0.7 x 0.3 cm that projects over the intercondylar notch/joint space possibly loose body. JOINTS: No dislocation. SOFT TISSUES: Unremarkable. RAD/Knee 4 or More Views IMPRESSION: No evidence of acute fracture. Small density possibly intra-articular loose body. Postsurgical changes. Electronically Signed: Kelly Silver MD at 1:23 EDT ,
--- NOTE | 2022-04-06 00:44 | EDS_ITS ---
HPI History of Present Illness Chief Complaint: General Illness Informant: patient Narrative Narrative: Patient states she noticed for the past several days her left knee has been swollen. It is sore diffusely including the popliteal area. There is no swelling dependent down in the ankle or elsewhere. She denies any injury or repetitive use lately. She states she has been resting but still getting around without any difficulty since she was diagnosed with a UTI last week. She had surgery on a tibial plateau fracture on this knee about 7 years ago. She denies any chest pain, shortness of breath, history of DVT or PE, she does not take any antiplatelet or anticoagulant medications. No recent immobilization/hospitalization/surgery or long travel. Patient also states she has had a headache all day today that came on gradually around lunchtime, it is bitemporal, it is not occipital. There was no thunderclap, it came on gradually. She denies any loss of consciousness or focal neurologic symptoms. She states it feels like it is hard to focus men tally, and she has had some photophobia, maybe some blurry vision but nothing focal. For the most part her vision has been okay. She states she has had these headaches in the past, but usually her blood pressure is up and when she checked it today it was in the 130s as it is here in triage. PFSH PFSH Medical History no medical history no medical history Home Medications cephalexin 500 mg capsule 500 mg PO BID 04/06/22 [History Last Taken Unknown] Allergy/AdvReac Type Severity Reaction Status Date / Time acetaminophen Allergy Vomiting Verified 04/06/22 00:30 gluten Allergy Vomiting Verified 04/06/22 00:30 Social History Smoking Status: Current every day smoker tobacco type: e-cigarettes ROS ROS ED Constitutional Constitutional ED: Denies chills or fever(s) Eyes Eyes: Reports as per HPI, blurry vision and photophobia; Denies diplopia ENT ENT ED: Denies rhinorrhea or sore throat Cardiovascular Cardiovascular: Denies chest pain, leg edema, leg ulcers or palpitations Respiratory/Chest Respiratory/Chest: Denies cough or dyspnea Gastrointestinal Gastrointestinal: Denies abdominal pain, diarrhea, nausea or vomiting Genitourinary Genitourinary ED: Denies dysuria or hematuria Musculoskeletal Musculoskeletal: Reports as per HPI and extremity pain; Denies back pain or neck pain Integumentary Denies abscess or rash Neurologic Neurologic: Reports headache(s); Denies paresthesias or weakness Psychiatric Psychiatric: Denies anxiety or suicidal thoughts EXAM Physical Exam Const Vital Signs: 04/06/22 00:16 Temperature 97.3 F L Temperature Source Temporal Pulse Rate 84 Respiratory Rate 18 Blood Pressure 134/90 H Blood Pressure Mean 104 Pulse Ox 96 Oxygen Delivery Method Room Air Positive well nourished and well developed General Appearance ED: well developed and NAD HEENT Reports moist mucous membranes normocephalic and atraumatic Eyes PERRL and EOMs intact bilaterally Neck full ROM and supple Resp normal respiratory effort Back/Spine no CVA tenderness General Back: other FROM Extremity normal to inspection Extremity Narrative: Mild diffuse left knee tenderness, no patellar or tibial tuberosity tenderness. Minor effusion if present compared to the other side. No calf tenderness, no pedal edema, no palpable cords, no erythema or signs of a superficial venous thrombosis objectively. The skin is normal-appearing without erythema or excessive warmth. She is able to bend her knee fully without significant diffi culty. She can extend it fully as well. All ligaments are stable on stressing, she does have some knee joint discomfort with stressing all of the ligaments but they are all with short endpoints. General Extremety ED: Yes tenderness; Negative for edema or pulses abnormal General Extremity: Negative for edema or pulses abnormal Neuro oriented x3, CN's II-XII intact bilaterally and no sensory deficits noted Sensorium / Orientation: awake and alert Motor Exam: strength 5/5 throughout Skin no rashes or lesions noted and no wounds MDM MDM MDM Narrative Medical decision making narrative: Patient indicates that prior to coming here she called a nurse about the symptoms and she was advised to come immediately to the emergency department for evaluation. After evaluating her, she does not have signs or symptoms of a DVT here in my opinion. I think this is a knee joint issue. I obtained some x-rays given the fact that she had a tibial plateau fracture in the past, and treated her headache which resembles a migraine, her blood pressure is 134/90 and on recheck 131/83. She agrees that her blood pressure is not a factor here today. 4 view x-ray series of the left knee shows no acute fractures on my interpretation. Radiology adds that there is a small density that may be intra- articular and loose. I discussed this with her, she does not remember who did her surgery but it was someone at [facility], she prefers to follow-up closely locally if that is possible. She was referred to orthopedics here and given an Ketan wrap in the meantime. Her headache is gone after the Toradol and Reglan she was given here in the ER. Radiography Diagnostic Testing: Clinical Impression(s) from Imaging Studies Knee X-Ray 04/06/22 00:38 IMPRESSION: No evidence of acute fracture. Small density possibly intra-articular loose body. Postsurgical changes. Electronically Signed: Kelly Silver MD at 1:23 EDT , Discharge Plan Triage Chief Complaint: General Illness ED Provider: Duran Duran Dx/Rx/DC Orders Clinical Impression: Effusion, left knee, Headache, migraine Instructions: ED Knee Effusion Prescriptions: No Action cephalexin [Keflex] 500 mg Capsule 500 mg PO BID Primary Care Provider: Charly Nassar Referrals: Charly Nassar MD [Primary Care Provider] - Mata Nguyen DO [Med Staff - Active Staff] - As soon as possible (Call Thursday for appointment) Disposition Disposition: Home, Self Care
[2022-04-06] MEDS: Ketorolac 30 MG/ML Syringe IV (00:47)
[2022-04-06] MEDS: Metoclopramide 10 MG/2 ML Vial 5 MG IV (00:47)
[2022-04-06 02:28] VITALS: BP 132/74; PULSE 74; RESP 17; O2SAT 98
== END 2022-04-06 02:31 | disposition home or self-care (01) ==
PROVIDERS: Emergency Provider Emergency Medicine; PCP Family Medicine; Visit Provider Emergency Medicine
DX: M25.462 Effusion, left knee (principal); G43.909 Migraine, unspecified, not intractable, without status migrainosus; F17.290 Nicotine dependence, other tobacco product, uncomplicated
CPT/HCPCS: 73564; 96360; 96374; 96375; 99283; A4216

== ENCOUNTER 2023-02-17 16:20 | Emergency (ER) | payer MEDICAID, SELFPAY ==
[2023-02-17 16:21] VITALS: BP 114/67; PULSE 80; RESP 16; TEMP 36.8; O2SAT 100; BMI 25.4
[2023-02-17 18:48] VITALS: BP 114/67; PULSE 80; RESP 16; TEMP 37.1; O2SAT 99
--- NOTE | 2023-02-17 18:52 | CM.ED ---
Social Work While patient was waiting for a room to be available, patient in hallway having a panic attack. SW provided emotional support and tried to get patient to follow a breathing exercise. Pt continued to breathe heavy and cry. SW discussed what helps patient when struggling with anxiety. Pt reports she locked herself out of her car and her medication that helps is in the car. SW provided water and continued to check on patient prior to room availability. Larissa Dick PACK WORKER SUPERVISOR, BODY ENGINEER
[2023-02-17] MEDS: Ondansetron ODT 4 MG Tablet PO (19:49)
[2023-02-17] MEDS: dexAMETHasone 10 MG/ML Vial PO.IVFORM (19:49)
[2023-02-17 20:29] VITALS: RESP 17
[2023-02-17 21:33] VITALS: RESP 17
--- NOTE | 2023-02-18 00:17 | EDS_ITS ---
HPI History of Present Illness Chief Complaint: Sore Throat Narrative Narrative: 27-year-old female presenting with sore throat. States has been present for couple days. Its only right-sided. She is has trouble swallowing because of pain but she is tolerating her own secretions. No fevers or chills. She states she did get nauseous because of the pain at 1 point but has not thrown up. PFSH PFS Medical History Bipolar disorder Home Medications cephalexin 500 mg capsule 500 mg PO BID 04/06/22 [History Last Taken Unknown] benztropine 0.5 mg tablet 0.5 mg PO DAILY PRN muscle spasm 02/17/23 [History Last Taken Unknown] lamotrigine 100 mg tablet 100 mg PO DAILY 02/17/23 [History Last Taken Unknown] ondansetron 4 mg disintegrating tablet 4 mg PO Q8H PRN PRN Nausea #20 tabs 02/17/23 [Rx Last Taken Unknown] Allergy/AdvReac Type Severity Reaction Status Date / Time acetaminophen Allergy Vomiting Verified 02/17/23 16:23 gluten Allergy Vomiting Verified 02/17/23 16:23 Social History Smoking Status: Current every day smoker tobacco type: e-cigarettes ROS ROS ED Constitutional Constitutional ED: Denies chills, fever(s) or sweats Eyes Eyes: Denies blurry vision or change in vision ENT ENT ED: Reports sore throat; Denies ear pain Cardiovascular Cardiovascular: Denies chest pain, palpitations or racing heartbeat Respiratory/Chest Respiratory/Chest: Denies cough, dyspnea or sputum Gastrointestinal Gastrointestinal: Denies abdominal pain, constipation, diarrhea, nausea or vomiting Genitourinary Genitourinary ED: Denies dysuria, hematuria or urinary frequency Musculoskeletal Musculoskeletal: Denies arthralgias, myalgias or neck pain Integumentary Denies abscess, Abrasions or rash Neurologic Neurologic: Denies headache(s), paresthesias or weakness Psychiatric Psychiatric: Denies anxiety, depression, suicidal ideation or suicidal thoughts Endocrine Endocrinology: Denies polydipsia or polyuria EXAM Physical Exam Const Vital Signs: 02/17/23 16:21 02/17/23 18:48 02/17/23 20:29 Temperature 98.2 F 98.8 F Temperature Source Temporal Temporal Pulse Rate 80 80 Respiratory Rate 16 16 17 Blood Pressure 114/67 114/67 Blood Pressure Mean 82 82 Pulse Ox 100 99 Oxygen Delivery Method Room Air Room Air 02/17/23 21:33 Temperature Temperature Source Pulse Rate Respiratory Rate 17 Blood Pressure Blood Pressure Mean Pulse Ox Oxygen Delivery Method Positive well nourished General Appearance ED: NAD HEENT Reports TM's clear and moist mucous membranes Tympanic Membrane ED: Yes TM's clear bilateral Throat: posterior oropharynx normal, tonsils normal and uvula midline Eyes PERRL and EOMs intact bilaterally Neck Neck Narrative: Right-sided anterior lymphadenopathy General: tenderness Chest Wall inspection of chest normal Resp normal respiratory effort and clear to auscultation bilaterally Auscultation: Negative for rales, rhonchi or wheezes Cardio regular rate and regular rhythm GI normal to inspection, nondistended, normoactive bowel sounds MDM MDM MDM Narrative Medical decision making narrative: Patient given 10 mg of Decadron and 4 mg of Zofran. I ordered a rapid strep. Her physical exam is only remarkable for right-sided lymphadenopathy but she has not had any systemic signs or symptoms. This could likely be viral as well. R apid strep negative. patient counseled on using Tylenol and ibuprofen for pain. I will write her for Zofran. Return precautions were discussed. Impression: 1. Sore throat 2. Right cervical and Discharge Plan Triage Chief Complaint: Sore Throat ED Provider: Roger Foster Dx/Rx/DC Orders Instructions: ED Adenitis Cervical No Abx Tx Prescriptions: New ondansetron 4 mg tablet,disintegrating 4 mg PO Q8H PRN PRN (Reason: Nausea) Qty: 20 0RF No Action cephalexin [Keflex] 500 mg Capsule 500 mg PO BID Hold Instructions: Order Completed lamotrigine 100 mg tablet 100 mg PO DAILY benztropine 0.5 mg tablet 0.5 mg PO DAILY PRN (Reason: muscle spasm) Patient Comments: TAKE 1 TABLET BY MOUTH ONCE DAILY NEEDED FOR ABNORMAL MUSCLE MOVEMENTS Primary Care Provider: Charly Nassar Referrals: Charly Nassar MD [Primary Care Provider] - Disposition Disposition: Home, Self Care Discharge Date/Time: 02/17/23 21:33
== END 2023-02-17 21:33 | disposition home or self-care (01) ==
PROVIDERS: Emergency Provider Student in an Organized Health Care Education/Training Program; PCP Family Medicine; Visit Provider Student in an Organized Health Care Education/Training Program
DX: J02.9 Acute pharyngitis, unspecified (principal); R59.9 Enlarged lymph nodes, unspecified; F17.290 Nicotine dependence, other tobacco product, uncomplicated
CPT/HCPCS: 87077; 87880; 99283

== ENCOUNTER 2023-04-01 11:12 | Emergency (ER) | payer MEDICAID, SELFPAY ==
[2023-04-01 11:13] VITALS: BP 116/82; PULSE 77; RESP 16; TEMP 36.2; O2SAT 100
[2023-04-01 11:26] VITALS: BMI 25.5
--- NOTE | 2023-04-01 11:52 | ED.VIS.GI ---
HPI HPI - GI History of Present Illness Chief Complaint: Nausea/Vomiting Informant: patient Nausea/Vomiting/Emesis GI Symptom: Positive for Nausea and Vomiting Onset: Today Quality: Positive for Hematemesis Severity: Severe Diarrhea/Melena/Hematochezia GI Symptom: Positive for Diarrhea; Negative for Melena or Hematochezia Associated Symptoms Associated Symptoms: Negative for Dysuria, Frequency or Hematuria Narrative Narrative: Patient presents with nausea and vomiting that began today. Patient states she has been vomiting up dark blood. Patient denies any abdominal pain. Patient states she has been unable to keep anything down today. Patient states she did have some diarrhea yesterday. Patient denies any melena or hematochezia. Patient denies any abnormal vaginal bleeding or discharge. Patient denies any dysuria, hematuria, or frequency. Patient admits to subjective chills but denies any fevers. Patient states she called her primary care physician who referred her to the emergency department. [facility] Medical History Bipolar disorder Home Medications cephalexin 500 mg capsule 500 mg PO BID 04/06/22 [History Last Taken Unknown] benztropine 0.5 mg tablet 0.5 mg PO DAILY PRN muscle spasm 02/17/23 [History Last Taken Unknown] lamotrigine 100 mg tablet 100 mg PO DAILY 02/17/23 [History Last Taken Unknown] omeprazole 20 mg capsule,delayed release 20 mg PO DAILY #30 CAPSULES 04/01/23 [Rx Last Taken Unknown] ondansetron 4 mg disintegrating tablet 4 mg PO Q8H PRN PRN Nausea #10 tabs 04/01/23 [Rx Last Taken Unknown] Allergy/AdvReac Type Severity Reaction Status Date / Time acetaminophen Allergy Vomiting Verified 04/01/23 11:15 gluten Allergy Vomiting Verified 04/01/23 11:15 Social History (Updated 04/01/23 @ 11:[address] iRshi Rocha DO) Smoking Status: Current every day smoker tobacco type: e-cigarettes substance use type: marijuana ROS ROS ED Constitutional Constitutional ED: Reports chills and subjective; Denies fever(s) Eyes Eyes: Denies blurry vision or change in vision ENT ENT ED: Reports sore throat; Denies rhinorrhea Cardiovascular Cardiovascular: Reports chest pain; Denies palpitations Respiratory/Chest Respiratory/Chest: Reports cough; Denies dyspnea Gastrointestinal Gastrointestinal: Reports diarrhea, nausea and vomiting; Denies melena Genitourinary Genitourinary ED: Denies dysuria or hematuria Musculoskeletal Musculoskeletal: Denies back pain or neck pain Integumentary Denies abscess or rash Neurologic Neurologic: Denies headache(s) or weakness Allergic/Immunologic Allergic/Immunologic ED: Denies mouth swelling or urticaria EXAM Physical Exam Const Vital Signs: 04/01/23 11:13 Temperature 97.2 F L Temperature Source Temporal Pulse Rate 77 Respiratory Rate 16 Blood Pressure 116/82 H Blood Pressure Mean 93 Pulse Ox 100 Oxygen Delivery Method Room Air Positive well nourished and well developed General Appearance ED: well developed and NAD HEENT Reports moist mucous membranes Neck supple and no JVD Resp normal respiratory effort and clear to auscultation bilaterally Cardio regular rate, regular rhythm and no murmurs GI normal to inspection, nondistended, normoactive bowel sounds Palpation: soft and tender LLQ, RLQ and suprapubic; Negative for guarding or rebound tenderness present Rectal Exam: visual inspection normal, normal sphincter tone and heme negative stool Extremity normal to inspection General Extremety ED: Negative for edema or tenderness General Extremity: Negative for edema Neuro oriented x3, CN's II-XII intact bilaterally, moves all extremities and no sensory deficits noted Sensorium / Orientation: alert Motor Exam: strength 5/5 throughout Psych mental status grossly normal Skin no rashes or lesions noted MDM MDM MDM Narrative Medical decision making narrative: Differential diagnosis includes peptic ulcer disease, duodenal ulcer, anemia, coagulopathy, viral illness, gastroenteritis, pancreatitis, pyelonephritis, and urinary tract infection. CBC will be obtained to assess for leukocytosis and anemia. Comprehensive metabolic profile will be obtained to assess for hepatic function, renal function, and electrolyte abnormality. Lipase will be obtained to assess for pancreatitis. PT with INR and PTT will be obtained to assess for coagulopathy. Urinalysis will be obtained to assess for urinary tract infection. Serum hCG will be obtained to assess for . Lab Data Attestation: I reviewed the patient's lab results. Lab results narrative: CBC was reviewed and was within normal limits. PT with INR and PTT were reviewed and were normal. Comprehensive metabolic profile was reviewed and was within normal limits. Serum hCG was reviewed and was negative. Urinalysis was reviewed. There is no evidence of urinary tract infection or hematuria. Lipase was reviewed and was normal. Stool for occult blood was reviewed and was negative. Labs: Laboratory Results - last 24 hr 04/01/23 04/01/23 11:30 12:17 WBC 6.1 RBC 4.16 L Hgb 13.5 Hct 39.7 MCV 95.4 MCH 32.5 H MCHC 34.0 RDW Std Deviation 46.0 H RDW Coeff of Cinthya 13.1 Plt Count 283 MPV 10.6 Immature Gran % (Auto) 0.300 Neut % (Auto) 63.5 Lymph % (Auto) 27.3 [place] % (Auto) 6.9 Eos % (Auto) 1.5 Baso % (Auto) 0.5 Absolute Neuts (auto) 3.8 Absolute Lymphs (auto) 1.65 Nucleated RBC % 0 PT 13.2 INR 1.0 APTT 30.1 Sodium 142 Potassium 3.8 Chloride 111 H Carbon Dioxide 27.0 Anion Gap 4 L BUN 14 Creatinine 0.91 Estim Creat Clear Calc 77.50 Est GFR (MDRD) Af Amer 95 Est GFR (MDRD) Non-Af 79 BUN/Creatinine Ratio 15.3 Glucose 98 Calcium 9.4 Total Bilirubin 0.60 AST 9 L ALT 17 Alkaline Phosphatase 53 Total Protein 7.6 Albumin 3.9 Globulin 3.7 Albumin/Globulin Ratio 1.1 Lipase 31 Serum , Qual NEGATIVE Urine Color Yellow Urine Clarity Clear Urine pH 7.0 Ur Specific [place] 1.005 Urine Protein Negative Urine Glucose (UA) Normal Urine Ketones Negative Urine Occult Blood 250 H Urine Nitrite Negative Urine Bilirubin Negative Urine Urobilinogen Normal Ur Leukocyte Esterase Negative Urine RBC 0 SEEN Urine WBC 0 SEEN Ur Squamous Epith Cells 0-5 SEEN Urine Bacteria 0 SEEN Urine Mucus 0 SEEN Treatment and Re-Evaluation :: Patient was given a GI cocktail and Zofran. Patient was feeling better on reevaluation. Patient was advised of her findings. Patient was given prescriptions for Zofran and omeprazole. Patient was instructed to follow-up with her primary care physician in 5 to 7 days. Patient understood and was agreeable with the plan. All questions were answered. Discharge Plan Triage Chief Complaint: Nausea/Vomiting ED Provider: Rishi Rocha Dx/Rx/DC Orders Clinical Impression: Hematemesis of unknown cause, Nausea and vomiting Instructions: ED Upper GI Bleeding (Stable) Prescriptions: New omeprazole [omeprazole] 20 mg capsule,delayed release(DR/EC) 20 mg PO DAILY Qty: 30 0RF Continued ondansetron 4 mg tablet,disintegrating 4 mg PO Q8H PRN PRN (Reason: Nausea) Qty: 10 0RF No Action cephalexin [Keflex] 500 mg Capsule 500 mg PO BID Hold Instructions: Order Completed lamotrigine 100 mg tablet 100 mg PO DAILY benztropine 0.5 mg tablet 0.5 mg PO DAILY PRN (Reason: muscle spasm) Patient Comments: TAKE 1 TABLET BY MOUTH ONCE DAILY NEEDED FOR ABNORMAL MUSCLE MOVEMENTS Primary Care Provider: Charly Nassar Referrals: Charly Nassar MD [Primary Care Provider] - 5-7 Days Disposition Disposition: Home, Self Care
[2023-04-01] MEDS: 0.9% Normal Saline 1,000 ML 1000 ML IV (12:16)
[2023-04-01] MEDS: Ondansetron 4 MG/2 ML Vial IV (12:21)
[2023-04-01] MEDS: Mag Hydrox/Al Hydrox/Simeth 30 ML UDC PO (12:22)
[2023-04-01 12:24] LABS: Bacteria 0 SEEN /hpf (None Seen); Mucous, Urine 0 SEEN /hpf (<or=2+); Red Blood Cells-Urine 0 SEEN /hpf (0-5); White Blood Cells 0 SEEN /hpf (0-5)
[2023-04-01 12:26] LABS: Absolute Lymphocyte Count 1.65 X10^3/uL (0.83-4.51); Absolute Neutrophil Count 3.8 X10^3/uL (2.0-7.7); Basophil# 0.03 X10^3/uL; Basophil% 0.5 % (0-1); Eosinophil# 0.09 X10^3/uL; Eosinophils% 1.5 % (0-5); Hematocrit 39.7 % (37-47); Hemoglobin 13.5 g/dL (12.0-15.0); Lymphocyte # 1.65 X10^3/ul (0.83-4.51); Lymphocyte % 27.3 % (19-41); Mean Corpuscular Hgb 32.5 pg (27.0-32.0); Mean Corpuscular Volume 95.4 fL (81-99); Mean Platelet Vol. 10.6 fl (6.2-12.0); Monocyte# 0.42 X10^3/uL; Monocyte% 6.9 % (0-10); NRBC Flagged by Analyzer 0 % (0-5); Neutrophil # 3.84 X10^3/uL (2.7-7.7); Neutrophil % 63.5 % (47-70); Platelet Count 283 K/mm3 (150-450); RBC Distribution Width CV 13.1 % (11.6-14.6); Red Blood Count 4.16 M/mm3 (4.2-5.4); White Blood Count 6.1 K/mm3 (4.4-11.0)
[2023-04-01 12:26] LABS: Color, Urine Yellow (Yellow); Glucose, Dipstick Normal (Normal); Ketone-Dipstick Negative (Negative); Leukocyte Esterase-Dipstick Negative /ul (Negative); Nitrite-Dipstick Negative (Negative); Occult Blood-Urine 250 /ul (Negative); Protein-Dipstick Negative (Negative); Specific Gravity, Urine 1.005 (1.002-1.030); Urine Bilirubin Dipstick Negative (Negative); Urine Clarity Clear (Clear); Urine Urobilinogen Normal (Normal)
[2023-04-01 12:36] LABS: Internal QC Validated? YES +Cl - CLEAR BKGD; Pregnancy, Serum, hCG Quali. NEGATIVE Negative
[2023-04-01 12:37] LABS: Squamous Epithelial Cells - UA 0-5 SEEN /hpf (5-10)
[2023-04-01 12:37] LABS: Prothrombin Time (Protime)PT. 13.2 SECONDS (11.7-14.9)
[2023-04-01 12:38] LABS: Partial Thromboplast Time 30.1 Seconds (24.1-36.2)
[2023-04-01 12:44] LABS: ALB/GLOB Ratio 1.1 RATIO (0.9-2.4); AST(SGOT) 9 U/L (15-37); Alanine Aminotransfer ALT/SGPT 17 U/L (13-56); Albumin, Serum 3.9 g/dL (3.2-5.0); Alkaline Phosphatase 53 U/L (45-117); Anion Gap 4 (5-15); BUN 14 mg/dL (7-18); BUN/Creat Ratio 15.3 RATIO (10-20); Calcium,Total 9.4 mg/dL (8.5-10.1); Chloride 111 mmol/L (98-107); Creatinine, Serum 0.91 mg/dL (0.55-1.02); EST Glomerular Filtration Rate 79 mL/min (>60); Est Glom Filt Rate - Afr Amer 95 mL/min (>60); Globulin 3.7 g/dL (2.2-4.2); Glucose 98 mg/dL (74-106); Lipase 31 U/L (13-75); Potassium 3.8 mmol/L (3.5-5.1); Protein, Total 7.6 g/dL (6.4-8.2); Sodium Level 142 mmol/L (136-145)
[2023-04-01 14:35] VITALS: BP 128/76; PULSE 70; RESP 16; O2SAT 99
== END 2023-04-01 14:40 | disposition home or self-care (01) ==
PROVIDERS: Emergency Provider Emergency Medicine; PCP Family Medicine; Visit Provider Emergency Medicine
DX: K92.0 Hematemesis (principal); R19.7 Diarrhea, unspecified; F17.290 Nicotine dependence, other tobacco product, uncomplicated; Z79.899 Other long term (current) drug therapy; R07.9 Chest pain, unspecified
CPT/HCPCS: 80053; 81001; 82274; 83690; 84703; 85025; 85610; 85730; 96361; 96374; 99282; J7030; A4216; J2405

== ENCOUNTER 2023-06-30 13:38 | Emergency (ER) | payer MEDICAID, SELFPAY ==
[2023-06-30 13:39] VITALS: BP 135/100; PULSE 92; RESP 18; TEMP 36.4; O2SAT 100; BMI 23.1
[2023-06-30 13:54] VITALS: O2SAT 96
--- NOTE | 2023-06-30 14:50 | RAD_ITS ---
STUDY: X-RAY CHEST REASON FOR EXAM: Female, 27 years old. Shortness of breath. TECHNIQUE: Frontal and lateral views of the chest. COMPARISON: None. FINDINGS: The lungs are clear and expanded. There is no demonstrated pleural abnormality. Normal size heart. Normal mediastinum and beronica. Normal visualized pulmonary arteries. Normal visualized aortic arch and descending thoracic aorta. Normal visualized thoracic spine. Normal visualized ribs, clavicles, and shoulders. No abnormality of the visualized soft tissue structures of the upper abdomen. RAD/Chest PA and Lateral IMPRESSION: Normal x-ray examination of the chest. Electronically Signed: Lloyd Rhoades MD at 15:03 EST ,
--- NOTE | 2023-06-30 14:52 | EDS_ITS ---
HPI History of Present Illness Chief Complaint: Shortness of Breath Detail of Chief Complaint: Patient has a multitude of complaints which will be documented in the HPI n Informant: patient Onset/Context/Timing Onset: Days Context: Sudden Onset Timing: Intermittent Quality: Pain Location: Head, anterior chest, right and left flank Current Severity: Mild Maximum Severity: Moderate Worsened by: Nothing Relieved by: Nothing Associated Symptoms Associated Symptoms: Shortness of breath Narrative Narrative: Patient is a 27-year-old woman with history of bipolar affective disorder, presents with shortness of breath, intermittent transient chest pain, intermittent right and left flank pain and intermittent occipital head pain. Symptoms started a couple days ago. What concerned her is that her shortness of breath has not gotten better. She is not on control pills. She has no history of VTE. She has no risk factors for VTE. There is no family history of VTE. Patient presently denies headache. She denies double vision, blurred vision loss of vision. She denies ringing in ears or decreased hearing. She denies rhinorrhea, congestion or sore throat. She denies cough. She denies pleuritic chest pain. She denies abdominal pain, vomiting or diarrhea. She denies urinary symptoms. She denies leg pain, swelling or discoloration. She denies dermatologic lesions or rash. She does have history of GERD. She also has history of bipolar affective disorder. Prior similar symptoms: No Recent Illness/Hospitalization: No [facility] Medical History Bipolar disorder Home Medications benztropine 0.5 mg tablet 0.5 mg PO DAILY PRN muscle spasm 02/17/23 [History Last Taken Unknown] lamotrigine 100 mg tablet 100 mg PO Q12H 02/17/23 [History Last Taken 06/29/23] omeprazole 20 mg capsule,delayed release 20 mg PO DAILY #30 CAPSULES 04/01/23 [Rx Last Taken 06/29/23] sucralfate 1 gram tablet 1 g PO ACHS 06/30/23 [History Last Taken 06/29/23] Allergy/AdvReac Type Severity Reaction Status Date / Time acetaminophen Allergy Vomiting Verified 06/30/23 13:39 gluten Allergy Vomiting Verified 06/30/23 13:39 Social History (Updated 04/01/23 @ 11:[address] Rishi Rocha, DO) Smoking Status: Current every day smoker tobacco type: e-cigarettes substance use type: marijuana ROS ROS ED Constitutional Constitutional ED: Denies chills, fever(s), subjective, sweats or weight loss Eyes Eyes: Denies blurry vision, change in vision or diplopia ENT ENT ED: Denies ear pain, rhinorrhea or sore throat Cardiovascular Cardiovascular: Reports chest pain; Denies orthopnea, palpitations, paroxysmal nocturnal dyspnea or racing heartbeat Respiratory/Chest Respiratory/Chest: Reports dyspnea; Denies cough, dyspnea on exertion, orthopnea or paroxysmal nocturnal dyspnea Gastrointestinal Gastrointestinal: Denies abdominal pain, constipation, diarrhea or vomiting Genitourinary Genitourinary ED: Denies dysuria, hematuria or urinary frequency Musculoskeletal Musculoskeletal: Denies arthralgias, back pain, myalgias or neck pain Integumentary Denies abscess, Abrasions or rash Neurologic Neurologic: Reports headache(s); Denies paresthesias or weakness Psychiatric Psychiatric: Denies anxiety Endocrine Endocrinology: Denies cold intolerance or heat intolerance Hematologic/Lymphatic Hematologic/Lymphatic: Reports systems reviewed and no addt'l complaints, except as documented EXAM Physical Exam Const Vital Signs: 06/30/23 13:39 06/30/23 13:54 Temperature 97.5 F L Temperature Source Temporal Pulse Rate 92 Respiratory Rate 18 Respiratory Effort Short of Breath Labored Respiratory Depth Normal Respiratory Pattern Normal Blood Pressure 135/100 H Blood Pressure Mean 111 Pulse Ox 100 Oxygen Delivery Method Room Air Room Air Positive well nourished and well developed General Appearance ED: well developed, NAD and pallor; Negative for cyanotic or diaphoretic HEENT Reports moist mucous membranes HEENT Narrative: Is atraumatic and normocephalic. Ears are normal. Nares are patent. Posterior pharynx erythema is a. Uvula midline. Patient has numerous piercings of her nose. There is no frontal, ethmoid or maxillary sinus tenderness to percussion. Eyes PERRL and EOMs intact bilaterally Eyes Narrative: There is no photophobia. General Eye ED: Negative for pale conjunctiva or scleral icterus Neck no lymphadenopathy, supple and no JVD Resp normal respiratory effort and clear to auscultation bilaterally Cardio regular rate, regular rhythm, S1 normal heart sound, S2 normal heart sound and no murmurs GI normal to inspection, nondistended, normoactive bowel sounds, non-tender, non- distended and no masses; Negative for hepatosplenomegaly Palpation: soft Back/Spine no CVA tenderness Thoracic Spine / Upper Back: Negative for thoracic spinal tenderness Lumbar Spine / Lower Back: Negative for lumbar spinal tenderness Extremity normal to inspection General Extremety ED: Negative for edema or tenderness General Extremity: Negative for edema Neuro oriented x3, CN's II-XII intact bilaterally and no sensory deficits noted Sensorium / Orientation: alert Motor Exam: strength 5/5 throughout Psych mental status grossly normal Attitude: No agitated Mood & Affect: Negative for anxious or tearful Skin no rashes or lesions noted, no wounds and skin turgor normal General Skin Exam: elasticity normal and pallor; Negative for jaundice MDM MDM MDM Narrative Medical decision making narrative: Patient with transient multiple symptoms. This may be somatic, this may represent tension headache or musculoskeletal headache. Her chest pain since it only lasts fleeting seconds is not cardiac in is not reproducible. Will obtain a chest x-ray to assess for pneumonia or pneumothorax. CBC was obtained to assess for anemia since she appears pale. This may explain her dyspnea. Her vital signs remarkable for slight elevation of blood pressure. Lab Data Attestation: I reviewed the patient's lab results. Lab results narrative: BC is normal. Labs: Laboratory Results - last 24 hr 06/30/23 14:50 WBC 7.3 RBC 4.20 Hgb 13.2 Hct 39.6 MCV 94.3 MCH 31.4 MCHC 33.3 RDW Std Deviation 44.5 H RDW Coeff of Cinthya 12.8 Plt Count 321 MPV 10.3 Immature Gran % (Auto) 0.300 Neut % (Auto) 60.1 Lymph % (Auto) 33.0 Bleckley % (Auto) 4.8 Eos % (Auto) 1.0 Baso % (Auto) 0.8 Absolute Neuts (auto) 4.4 Absolute Lymphs (auto) 2.40 Nucleated RBC % 0 Radiography Chest X-Ray - ED: 2 View and Read by ED Physician (Silhouette and size normal. Lung parenchyma is normal. There is no effusion or infiltrate noted. Perihilar regions normal. Osseous structures are unremarkable. This is independent reviewed interpreted by me at 08/14/2000.) Differential Diagnosis Chest pain/SOB: pulmonary embolism Reason(s) PE less likely: Positive for PERC negative, pneumothorax Reason(s) pneumothorax less likely: Positive for bilateral breath sounds and [employer] withhout PTX, pneumonia Reason(s) pneumonia less likely: Positive for no infiltrate on CXR, no elevation in WBC count, no noted fever and symptoms not consistent with acute infection and aortic dissection Reason(s) Aortic dissection less likely:: Positive for normal vascular exam, no history of HTN, normal neurological exam, no significant risk factors for dissection, no widened mediastinum on CXR, pain not sudden onset, no ripping/tearing pain, no pain to back and blood pressure appropriate in ED Discharge Plan Triage Chief Complaint: Shortness of Breath ED Provider: Devyn Ramos Dx/Rx/DC Orders Clinical Impression: Intermittent chest pain, Dyspnea, Pain in head, Bilateral flank pain Instructions: ED Chest Pain, Noncardiac, ED Chest Pain, Uncertain Cause, ED Dyspnea Prescriptions: No Action sucralfate 1 gram tablet 1 g PO ACHS Patient Comments: TAKE 1 TABLET BY MOUTH BEFORE MEAL(S) AND AT BEDTIME lamotrigine 100 mg tablet 100 mg PO Q12H benztropine 0.5 mg tablet 0.5 mg PO DAILY PRN (Reason: muscle spasm) Patient Comments: TAKE 1 TABLET BY MOUTH ONCE DAILY NEEDED FOR ABNORMAL MUSCLE MOVEMENTS omeprazole [omeprazole] 20 mg capsule,delayed release(DR/EC) 20 mg PO DAILY Qty: 30 0RF Primary Care Provider: Charly Nassar Referrals: Charly Nassar MD [Primary Care Provider] - 1 Week if not improving Disposition Disposition: Home, Self Care
[2023-06-30 14:55] LABS: Absolute Neutrophil Count 4.4 X10^3/uL (2.0-7.7); Basophil# 0.06 X10^3/uL; Basophil% 0.8 % (0-1); Eosinophil# 0.07 X10^3/uL; Hematocrit 39.6 % (37-47); Hemoglobin 13.2 g/dL (12.0-15.0); Mean Corp Hgb Conc 33.3 g/dL (32-36); Mean Corpuscular Hgb 31.4 pg (27.0-32.0); Mean Corpuscular Volume 94.3 fL (81-99); Mean Platelet Vol. 10.3 fl (6.2-12.0); Monocyte# 0.35 X10^3/uL; Monocyte% 4.8 % (0-10); NRBC Flagged by Analyzer 0 % (0-5); Neutrophil # 4.38 X10^3/uL (2.7-7.7); Neutrophil % 60.1 % (47-70); Platelet Count 321 K/mm3 (150-450); RBC Distribution Width CV 12.8 % (11.6-14.6); RBC Distribution Width SD 44.5 fl (35.1-43.9); White Blood Count 7.3 K/mm3 (4.4-11.0)
[2023-06-30 15:23] VITALS: BP 130/84; PULSE 82; RESP 18; O2SAT 99
== END 2023-06-30 15:29 | disposition home or self-care (01) ==
PROVIDERS: Emergency Provider Emergency Medicine; PCP Family Medicine; Visit Provider Emergency Medicine
DX: R07.89 Other chest pain (principal); F31.9 Bipolar disorder, unspecified; F17.290 Nicotine dependence, other tobacco product, uncomplicated; R06.02 Shortness of breath; R51.9 Headache, unspecified; R10.9 Unspecified abdominal pain
CPT/HCPCS: 71046; 85025; 99283; A4216

== ENCOUNTER 2023-07-03 22:41 | Emergency (ER) | payer MEDICAID, SELFPAY ==
[2023-07-03 22:42] VITALS: BP 152/90; PULSE 102; RESP 18; TEMP 36.8; O2SAT 98; BMI 24.0
--- NOTE | 2023-07-04 00:11 | EDS_ITS ---
HPI History of Present Illness Chief Complaint: Anxiety Informant: patient Narrative Narrative: Patient is a 28-year-old female with past medical history of bulimia anorexia bipolar disorder and anxiety. She states she has 50 milligrams of Vistaril prescribed secondary to her anxiety. She reports has been dealing with a weird back pain and was seen in the ER few days prior secondary to it. She states today she began feeling short of breath and lightheaded and dizzy and she took her Vistaril. She states it did not work within a short timeframe and she had concerned that this could be lungs are cardiac and therefore she comes to the hospital for evaluation. Patient denies any family history of cardiac disease at young age she denies any history of DVT or PE. Denies any illicit drug use or excessive stimulant use. She does state that after waiting out in triage to make it back to her room she does feel much better at this time with almost complete resolution of symptoms. [facility] Medical History Bipolar disorder Home Medications benztropine 0.5 mg tablet 0.5 mg PO DAILY PRN muscle spasm 02/17/23 [History Last Taken Unknown] lamotrigine 100 mg tablet 100 mg PO Q12H 02/17/23 [History Last Taken 06/29/23] omeprazole 20 mg capsule,delayed release 20 mg PO DAILY #30 CAPSULES 04/01/23 [Rx Last Taken 06/29/23] sucralfate 1 gram tablet 1 g PO ACHS 06/30/23 [History Last Taken 06/29/23] buspirone 7.5 mg tablet 7.5 mg PO BID 30 days #60 tabs 07/04/23 [Rx Last Taken Unknown] Allergy/AdvReac Type Severity Reaction Status Date / Time acetaminophen Allergy Vomiting Verified 07/03/23 22:44 gluten Allergy Vomiting Verified 07/03/23 22:44 Social History (Updated 04/01/23 @ 11:[address] Rishi Rocha DO) Smoking Status: Current every day smoker tobacco type: e-cigarettes substance use type: marijuana ROS ROS ED Constitutional Constitutional ED: Denies chills or fever(s) Eyes Eyes: Denies change in vision ENT ENT ED: Denies sore throat Cardiovascular Cardiovascular: Reports racing heartbeat; Denies chest pain or palpitations Respiratory/Chest Respiratory/Chest: Reports dyspnea; Denies cough Gastrointestinal Gastrointestinal: Reports nausea; Denies abdominal pain, diarrhea or vomiting Genitourinary Genitourinary ED: Denies dysuria Musculoskeletal Musculoskeletal: Reports back pain; Denies myalgias Integumentary Denies rash Neurologic Neurologic: Denies headache(s) Psychiatric Psychiatric: Reports anxiety Hematologic/Lymphatic Hematologic/Lymphatic: Denies easy bleeding or easy bruising EXAM Physical Exam Const Vital Signs: 07/03/23 22:42 Temperature 98.3 F Temperature Source Temporal Pulse Rate 102 H Respiratory Rate 18 Blood Pressure 152/90 H Blood Pressure Mean 110 Pulse Ox 98 Oxygen Delivery Method Room Air Positive well nourished and well developed General Appearance ED: well developed; Negative for pallor HEENT HEENT Narrative: Normocephalic atraumatic Eyes PERRL and EOMs intact bilaterally General Eye ED: Negative for scleral icterus Neck supple Neck Narrative: No nuchal rigidity or meningeal signs present Resp normal respiratory effort and clear to auscultation bilaterally Cardio regular rate and regular rhythm Rate: other Other Details: Radial and carotid pulses are equal and symmetric Heart is regular rate and rhythm without murmurs rubs or gallops Extremity normal to inspection Extremity Narrative: No asymmetric edema no pitting edema negative Homans' sign bilaterally Neuro oriented x3, CN's II-XII intact bilaterally and no sensory deficits noted Sensorium / Orientation: alert Motor Exam: strength 5/5 throughout Psych mental status grossly normal Skin no rashes or lesions noted General Skin Exam: Negative for jaundice or pallor MDM MDM MDM Narrative Medical decision making narrative: Patient presented to the ER hypertensive and just slightly tachycardic. She reported multiple symptoms that based on her age and past medical history most consistent with anxiety reaction. Differential diagnosis is for cardiac dysrhythmia kidney stone versus UTI versus pyelonephritis versus DVT/PE versus acute coronary syndrome. I discussed with patient that she is low risk for any of these diagnoses especially with her recent workup. I did offer repeat laboratory studies to ensure that there is no severe electrolyte abnormality and cardiac dysfunction as a cause of her symptoms. She states that she is feeling almost completely back to normal at this time and that she has had a workup recently and does not feel that she needs repeat workup based on the improvement of her symptoms. I do feel that patient had breakthrough anxiety that was controlled with the Vistaril it just took longer to work than she was expecting and this is why she presented to the ER. Patient does not have a daily antianxiety medications of BuSpar will be added but as she is not homicidal or suicidal there is no need for psychiatric workup and patient is otherwise safe for discharge History & Record Review Discussion w/independent historian: Patient Discharge Plan Triage Chief Complaint: Anxiety ED Provider: Demetrio Michaels Dx/Rx/DC Orders Clinical Impression: Anxiety reaction, Bipolar disorder Instructions: Anxiety Disorders Medicine, ED Anxiety Reaction Prescriptions: New buspirone 7.5 mg tablet 7.5 mg PO BID 30 Days Qty: 60 0RF No Action sucralfate 1 gram tablet 1 g PO ACHS Patient Comments: TAKE 1 TABLET BY MOUTH BEFORE MEAL(S) AND AT BEDTIME lamotrigine 100 mg tablet 100 mg PO Q12H benztropine 0.5 mg tablet 0.5 mg PO DAILY PRN (Reason: muscle spasm) Patient Comments: TAKE 1 TABLET BY MOUTH ONCE DAILY NEEDED FOR ABNORMAL MUSCLE MOVEMENTS omeprazole [omeprazole] 20 mg capsule,delayed release(DR/EC) 20 mg PO DAILY Qty: 30 0RF Primary Care Provider: Charly Nassar Referrals: Charly Nassar MD [Primary Care Provider] - Activity Restrictions/Additional Instructions: Please add the BuSpar twice a day as directed to help control any further anxiety and return to the ER should you have any further concerns Disposition Disposition: Home, Self Care Discharge Date/Time: 07/04/23 00:21
== END 2023-07-04 00:21 | disposition home or self-care (01) ==
PROVIDERS: Emergency Provider Emergency Medicine; PCP Family Medicine; Visit Provider Emergency Medicine
DX: F41.1 Generalized anxiety disorder (principal); F31.9 Bipolar disorder, unspecified; F17.290 Nicotine dependence, other tobacco product, uncomplicated; M54.9 Dorsalgia, unspecified; Z79.899 Other long term (current) drug therapy
CPT/HCPCS: 99282

== ENCOUNTER 2023-09-07 13:40 | Emergency (ER) | payer MEDICAID, SELFPAY ==
[2023-09-07 13:40] VITALS: BP 133/99; PULSE 105; RESP 16; TEMP 36.6; O2SAT 99; BMI 22.4
--- NOTE | 2023-09-07 15:04 | EDS_ITS ---
HPI History of Present Illness Chief Complaint: Other, Pain/Inj Detail of Chief Complaint: Question left rib cage mass. Informant: patient Onset/Context/Timing Onset: Weeks Context: Gradual Onset Timing: Continuous Maximum Severity: Mild Narrative Narrative: 28-year-old female history of bipolar states that she has a lump on her left lower rib cage. She was seen at [facility] ER on Thursday and a CAT scan of the workup. She said they could not find anything specific. She denies any fall injury or trauma. She said it is uncomfortable. Denies any other complaints. Prior similar symptoms: No Recent Illness/Hospitalization: No [facility] Medical History Bipolar disorder Home Medications benztropine 0.5 mg tablet 0.5 mg PO DAILY PRN muscle spasm 02/17/23 [History Last Taken Unknown] lamotrigine 100 mg tablet 100 mg PO Q12H 02/17/23 [History Last Taken 06/29/23] omeprazole 20 mg capsule,delayed release 20 mg PO DAILY #30 CAPSULES 04/01/23 [Rx Last Taken 06/29/23] sucralfate 1 gram tablet 1 g PO ACHS 06/30/23 [History Last Taken 06/29/23] buspirone 7.5 mg tablet 7.5 mg PO BID 30 days #60 tabs 07/04/23 [Rx Last Taken Unknown] Allergy/AdvReac Type Severity Reaction Status Date / Time hydrocodone Allergy Mild Vomiting Verified 09/07/23 13:43 acetaminophen Allergy Vomiting Verified 09/07/23 13:43 gluten Allergy Vomiting Verified 09/07/23 13:43 Social History Smoking Status: Current every day smoker tobacco type: e-cigarettes substance use type: marijuana ROS ROS ED ROS Narrative 5 days ago had nausea vomiting diarrhea since resolved. Review of Systems ROS Unobtainable: Denies due to encephalopathy Constitutional Constitutional ED: Denies chills or fever(s) Eyes Eyes: Denies blurry vision ENT ENT ED: Denies ear pain Cardiovascular Cardiovascular: Denies chest pain Respiratory/Chest Respiratory/Chest: Denies cough Gastrointestinal Gastrointestinal: Reports diarrhea, nausea and vomiting; Denies abdominal pain, constipation or melena Genitourinary Genitourinary ED: Denies dysuria or hematuria Musculoskeletal Musculoskeletal: Denies arthralgias, back pain, myalgias or neck pain Integumentary Denies abscess, Abrasions or rash Neurologic Neurologic: Denies headache(s) Psychiatric Psychiatric: Denies anxiety, depression, suicidal ideation or suicidal thoughts Endocrine Endocrinology: Denies cold intolerance Hematologic/Lymphatic Hematologic/Lymphatic: Reports none Allergic/Immunologic Allergic/Immunologic ED: Denies mouth swelling, tongue swelling or urticaria EXAM Physical Exam Narrative Exam Narrative: Well-appearing 28-year-old female I saw in triage room 2 due to volume and acuity at that time. Vital signs stable afebrile. H EENT exam unremarkable. Neck nontender. Lungs clear to auscultation bilaterally. Heart regular rhythm rate about 100 no murmur. Chest wall she has minimal tenderness to her left lower chest wall but I do not see any bruising. I do not feel any mass. I do not see or feel any bony abnormality. Basically a normal chest wall and rib exam. Abdomen is soft and nontender. Moves all 4 extremities. Nontender no edema. Neurologically she is awake and alert. Back unremarkable. Normal exam. I explained to the patient that I do not see an abnormality. Const Vital Signs: 09/07/23 13:40 Temperature 97.9 F Temperature Source Temporal Pulse Rate 105 H Respiratory Rate 16 Blood Pressure 133/99 H Blood Pressure Mean 110 Pulse Ox 99 Oxygen Delivery Method Room Air Positive well nourished and well developed; Negative for obese, cachectic, contractures or unkempt General Appearance ED: well developed and NAD; Negative for unkempt, cachectic, contractures, cyanotic, diaphoretic or pallor Nutritional Appearance: Negative for cachectic or obese HEENT Reports moist mucous membranes; Denies dry mucous membranes or other Negative for trauma, tenderness or other Mouth ED: No dry mucous membranes Mouth: No dry mucous membranes Eyes PERRL and EOMs intact bilaterally General Eye ED: Negative for pale conjunctiva, scleral icterus or other Neck no lymphadenopathy, supple and no JVD General: Negative for tenderness Lymph Lymphatic: Negative for other Chest Wall inspection of chest normal and palpation of chest normal Chest: Negative for other Resp normal respiratory effort and clear to auscultation bilaterally Effort and Inspection: Negative for retractions Auscultation: Negative for rales, rhonchi, wheezes or diminished lung sounds Cardio regular rate, regular rhythm, S1 normal heart sound, S2 normal heart sound and no murmurs Palpation: Negative for palpable S3 or palpable S4 Rate: Negative for bradycardia or tachycardic Rhythm: Negative for abnormal rhythm GI normal to inspection, nondistended, normoactive bowel sounds, non-tender, non- distended and no masses Inspection: Negative for abdominal distention Auscultation: normoactive bowel sounds Palpation: soft; Negative for tender or guarding Bladder / Kidney Exam: No other Back/Spine no CVA tenderness General Back: Negative for CVA tenderness Cervical Spine: Negative for cervical spine tenderness Thoracic Spine / Upper Back: Negative for thoracic spinal tenderness or paraspinal muscle tenderness Lumbar Spine / Lower Back: Negative for lumbar spinal tenderness Extremity normal to inspection General Extremety ED: Negative for edema or tenderness General Extremity: Negative for edema Neuro CN's II-XII intact bilaterally Sensorium / Orientation: alert; Negative for orientation impaired, lethargic or stuporous Motor Exam: strength 5/5 throughout Psych mental status grossly normal Appearance: Negative for unkempt Attitude: No agitated Mood & Affect: anxious; Negative for depressed or tearful Skin no rashes or lesions noted and no wounds General Skin Exam: Negative for jaundice or pallor Lesions: No lesion noted Rashes: No rashes noted Trauma: Negative for abrasion Wounds: Negative for wounds noted MDM MDM MDM Narrative Medical decision making narrative: 28-year-old female concern for a left rib cage mass . Her exam is normal I do not find anything on her rib cage. She agreed reportedly recently had a CAT scan in another facility. I explained her there is nothing emergent or anything to do specifically today in the emergency department she will refer back to her primary care physician for repeat evaluation. Discharge Plan Triage Chief Complaint: Other, Pain/Inj ED Provider: Elias Quezada Dx/Rx/DC Orders Clinical Impression: Chest wall symptom or complaint, Hx of bipolar disorder Prescriptions: No Action sucralfate 1 gram tablet 1 g PO ACHS Patient Comments: TAKE 1 TABLET BY MOUTH BEFORE MEAL(S) AND AT BEDTIME lamotrigine 100 mg tablet 100 mg PO Q12H benztropine 0.5 mg tablet 0.5 mg PO DAILY PRN (Reason: muscle spasm) Patient Comments: TAKE 1 TABLET BY MOUTH ONCE DAILY NEEDED FOR ABNORMAL MUSCLE MOVEMENTS omeprazole [omeprazole] 20 mg capsule,delayed release(DR/EC) 20 mg PO DAILY Qty: 30 0RF buspirone 7.5 mg tablet 7.5 mg PO BID 30 Days Qty: 60 0RF Primary Care Provider: Charly Nassar Referrals: Charly Nassar MD [Primary Care Provider] - 1 Week if not improving Activity Restrictions/Additional Instructions: I do not specifically find any abnormality on your chest wall. Motrin for pain. Follow-up with your doctor if not improving. Disposition Disposition: Home, Self Care
--- NOTE | 2023-09-07 15:34 | ED.RN ---
THIS RN CALLED TO SECOND TRIAGE ROOM FOR A PATIENT COMPLAINT. THIS RN ENTERS ROOM, AND INTRODUCES SELF AND ROLE. THIS RN ENGAGES PATIENT IN ACTIVE LISTENING. PT SHARES THAT SHE IS UPSET WITH HER INTERACTION WITH DOCTOR ZHANG AND FEELS THAT SHE WAS NOT TREATED APPROPRIATELY. PATIENT IS TALKING DR. ZHANG ENTERS THE ROOM AGAIN TO SPEAK WITH THE PATIENT. DR. ZHANG EXPLAINING TO THE PATIENT THAT THERE IS NO EMERGENT TREATMENT INDICATED ACCORDING TO HER EVALUATION AND HIS ASSESSMENT OF THE PATIENT'S COMPLAINT. DR. ZHANG LAYS PATIENT BACK ON COT AND RE-EVALUATES HER RIB PAIN. PT PAIN WORSE WITH PALPATION, PT WINCES. PT REPORTS THAT PAIN IS WORSE WITH PALPATION AND THAT SHE CAME TO THE EMERGENCY ROOM BECAUSE SHE WAS ADVISED ON DISCHARGE THAT SHE SHOULD RETURN TO THE ED IF HER PAIN WAS WORSE OR HAD SPREAD. PT REPORTS, I WAS JUST DOING I WAS TOLD. I DID NOT ASK TO BE TREATED RUDELY. I AM NOT TRYING TO WASTE ANYONE'S TIME. THIS RN OFFERS EMOTIONAL SUPPORT TO PATIENT AND VALIDATES PATIENTS FEELINGS. THIS RN CALLS PATIENT ADVOCATE TO ALLOW PT TO VOICE HER CONCERNS. PATIENT RECEPTIVE TO THIS RN SAYING THANK YOU FOR YOUR HELP. PT ADVOCATE IN ED TO SEE PATIENT. THIS RN GIVES PATIENT HER DISCHARGE INSTRUCTIONS AND PT VERBALIZES UNDERSTANDING AND NEED FOR FOLLOW UP. PT ADVOCATE AT BEDSIDE.
--- OUTSIDE RECORDS SUMMARY | 2023-09-07 15:42 | XMS RPT_ITS | CCD ---
Author Name Unknown Address [id number] [place] [address] Organization [facility] Care Team Providers Care E Commerce Marketing Analyst Name Role Phone Miladis Nassar MD Primary Care Provider NO, PHYSICIAN Primary Care Unavailable TYRONE OLSON Attending Unavailable Miladis Nassar MD Primary Care Provider LUCIA MERINO Attending Unavail able MILADIS NASSAR Primary Care Unava ilable KAMALJIT SALDANA Attending Unavailable MILADIS NASSAR Primary Care Unavailab MILADIS Yin Primary Care Unavailab MILADIS Yin Attending Unavailab MILADIS Yin Primary Care Unavailab MILADIS Yin Referring Unavailab MILADIS Yin Primary Care Unavailab KAMILA Estrada Attending Unavailable MILADIS NASSAR Primary Care Unavailab KAMILA Estrada Referring Unavailable MILADIS NASSAR Primary Care Unavailab GBARIEL Paniagua Attending Unavailable GABRIEL COBURN Admitting Unavailable BIRGIT TURCIOS Referring Unavailable MILADIS NASSAR Primary Care Unavailab MILADIS Yin Primary Care Unavailab MILADIS Yin Primary Care Unavailab le KAMALJIT SALDANA Attending Unavailable MILADIS NASSAR Primary Care Unavailab FLOR Vallecillo Attending Unavailable MILADIS NASSAR Primary Care Unavailab MILADIS Yin Primary Care Unavailab FLOR Vallecillo Referring Unavailable MILADIS NASSAR Primary Care Unavailab le BIRGIT TURCIOS Attending Unavailable MILADIS NASSAR Attending Unavailab MILADIS Yin Primary Care Unavailab CHRISTINA YinER Shantanu Primary Care Unavailab CHERYL Casarez Attending Unavailable ANTONIO GAYLE Referring Unavailable MILADIS NASSAR Primary Care Unavailab le LONGBONANTONIO Vaughan Referring Unavailable MILADIS NASSAR Primary Care Unavailab KAMILA Estrada Referring Unavailable MILADIS NASSAR Primary Care Unavailab MILADIS Yin Attending Unavailab MILADIS Yin Primary Care Unavailab le MILADIS NASSAR Referring Unavailab ANTONIO Allen Attending Unavailable BIRGIT TURCIOS Attending Unavailable MILADIS NASSAR Primary Care Unavailab le MILADIS NASSAR Primary Care Unavailab miguelina LONGBONANTONIO Vaughan Referring Unavailable LONGBONSANTONIO Referring Unavailable MILADIS NASSAR Primary Care Unavailab BIRGIT Mock Referring Unavailable MILADIS NASSAR Primary Care Unavailab le MILADIS NASSAR Primary Care Unavailab KAMALJIT Ball Referring Unavailable LINA NASSAROPHER B Consulting Unavailab HÉCTOR Fregoso Attending Unavailable HÉCTOR LARSON Primary Care Unavailable HÉCTOR LARSON Admitting Unavailable MILADIS NASSAR Referring Unavailab le PROVIDER, UNKNOWN Consulting Unavailable MILADIS NASSAR Consulting Unavailab SONIA Gomez MD Attending Unavailable SONIA PATEL MD Primary Care Unavailable SONIA PATEL MD Admitting Unavailable MILADIS NASSAR Referring Unavailab le PROVIDER, UNKNOWN Consulting Unavailable Allergies Allergy Classification Reported Allergen(s) Allergy Type Date of Onset Reaction(s) Facility (20 sources) HYDROcodone; Translations: [HYDROCODONE] Drug Allergy 5 Vomiting [facility] (20 sources) Sertraline; Translations: [SERTRALINE HCL] Drug Allergy 9 GI Upset [facility] Work Phone: (16 sources) Wheat gluten extract; Translations: [GLUTEN] Drug Allergy 3 Swelling, Vomiting [facility] (2 sources) Acetaminophen; Translations: [ACETAMINOPHEN] Drug Allergy 3 [facility] Repository (1 source) HYDROmorphone Drug Allergy [facility] Repository Medications Completed/Discontinued Medications Medication Drug Class(es) Dates Sig (Normalized) Sig (Original) benztropine mesylate 0.5 mg oral tablet (19 sources) Anticholinergic, Antihistamine take 1 tablet by mouth once daily as needed benztropine (COGENTIN) 0.5 mg tablet Take 0.5 mg by mouth as needed. Patient reports once daily as needed 0 Active Problems Active Problems Problem Classification Problem Date Documented Da te Episodic/Chronic Adjustment disorders (1 source) Adjustment disorder, unspecified; Translations: [Adjustment disorder, unspecified] Onset: 3 Chronic Anxiety disorders (8 sources) Anxiety; Translations: [Anxiety disorder, unspecified] Onset: 3 07-07-2023 Chronic Esophageal disorders (15 sources) Gastroesophageal reflux disease; Translations: [Gastro-esophageal reflux disease without esophagitis] Onset: 3 04-03-2023 Chronic Fracture of upper limb (9 sources) Closed fracture of shaft of fifth metacarpal bone; Translations: [Displaced fracture of shaft of fifth metacarpal bone, right hand, initial encounter for closed fracture] Onset: 3 07-17-2023 Episodic Immunizations and screening for infectious disease (3 sources) Patient encounter status; Translations: [Encounter for screening for human papillomavirus (HPV)] Onset: 3 07-10-2023 Episodic Joint disorders and dislocations; trauma-related (19 sources) Disorder of patellofemoral joint; Translations: [Patellofemoral disorders, unspecified knee] Onset: 6 11-19-2015 Chronic Menstrual disorders (19 sources) Dysmenorrhea; Translations: [Dysmenorrhea, unspecified] Onset: 4 09-08-2013 Chronic Miscellaneous mental health disorders (20 sources) Bulimia nervosa; Translations: [Bulimia nervosa] Onset: 7 04-08-2017 Chronic Mood disorders (8 sources) Bipolar affective disorder, current episode mixed; Translations: [Bipolar disorder, current episode mixed, unspecified] Onset: 3 07-07-2023 Chronic Nonmalignant breast conditions (1 source) Fibrocystic change of left breast; Translations: [Diffuse cystic mastopathy of left breast] 07-10-2023 Chronic Nonspecific chest pain (2 sources) Localized chest pain; Translations: [Other chest pain] Onset: 3 07-07-2023 Episodic Other connective tissue disease (2 sources) Pain in right hand; Translations: [Pain in right hand] 07-13-2023 Episodic Other connective tissue disease (1 source) Pain in right hand; Translations: [Right hand pain] Onset: 3 Episodic Other female genital disorders (1 source) Postcoital bleeding; Translations: [Postcoital and contact bleeding] 07-10-2023 Chronic Other gastrointestinal disorders (2 sources) Swallowing painful; Translations: [Dysphagia, unspecified] 04-03-2023 Episodic Other gastrointestinal disorders (2 sources) Abdominal bloating; Translations: [Abdominal distension (gaseous)] 04-07-2023 Episodic Other gastrointestinal disorders (1 source) Heartburn; Translations: [Heartburn] 04-24-2023 Episodic Other gastrointestinal disorders (1 source) Abdominal distension (gaseous); Translations: [Bloating] Onset: 3 Episodic Other nutritional; endocrine; and metabolic disorders (19 sources) Body mass index 25-29 - overweight; Translations: [Overweight] 04-17-2017 Episodic Other screening for suspected conditions (not mental disorders or infectious disease) (1 source) Cancer cervix screening status; Translations: [Encounter for screening for malignant neoplasm of cervix] 07-10-2023 Episodic Residual codes; unclassified (1 source) Harmful pattern of use of nicotine; Translations: [Tobacco use] 07-07-2023 Episodic Residual codes; unclassified (2 sources) Other specified postprocedural states; Translations: [Post-operative state] Onset: 4 Episodic Residual codes; unclassified (1 source) Tobacco use; Translations: [Nicotine abuse] Onset: 3 Episodic Past or Other Problems Problem Classification Problem Date Documented Da te Episodic/Chronic Abdominal pain (19 sources) Epigastric pain; Translations: [Epigastric pain] Onset: 11-12-2022 Episodic Allergic reactions (1 source) Allergy status to narcotic agent status; Translations: [Allergy status to narcotic agent] Onset: 11-30-2022 Episodic Fracture of lower limb (19 sources) Fracture of tibial plateau; Translations: [Displaced bicondylar fracture of unspecified tibia, initial encounter for closed fracture] Onset: 10-02-2015 10-02-2015 Episodic Gastrointestinal hemorrhage (3 sources) Hematemesis; Translations: [Hematemesis] Onset: 04-07-2023 04-03-2023 Episodic Nausea and vomiting (20 sources) Nausea and vomiting; Translations: [Nausea with vomiting, unspecified] Onset: 04-24-2023 Episodic Other gastrointestinal disorders (14 sources) Dysphagia; Translations: [Dysphagia, unspecified] Onset: 04-24-2023 04-03-2023 Episodic Other gastrointestinal disorders (1 source) Heartburn; Translations: [Heartburn] Onset: 04-24-2023 Episodic Other gastrointestinal disorders (2 sources) Dysphagia, unspecified; Translations: [Dysphagia, unspecified type] Onset: 04-07-2023 Episodic Other injuries and conditions due to external causes (19 sources) Injury of posterior cruciate ligament; Translations: [Unspecified injury of unspecified lower leg, initial encounter] Onset: 10-02-2015 10-02-2015 Episodic Other skin disorders (19 sources) Hirsutism; Translations: [Hirsutism] Onset: 04-08-2017 04-08-2017 Episodic Suicide and intentional self-inflicted injury (3 sources) Suicidal ideations; Translations: [Suicidal ideations] Onset: 11-30-2022 Episodic Results Test Name Value Interpretation Reference Range Facil ity Vital Signs Date Time Vital Sign Value Performing Clinician Faci anh 07-10-2023 11:28-0500 Body height 160 cm Flor Alvarez APRN.CNP Work Phone: [facility] 07-10-2023 11:28-0500 Body weight 60.24 kg Flor Alvarez APRN.CNP Work Phone: [facility] 07-10-2023 11:28-0500 Diastolic blood pressure 64 mm[Hg] Flor Alvarez APRN.HELICOPTER SPECIALIST Work Phone: [facility] 07-10-2023 11:28-0500 Systolic blood pressure 100 mm[Hg] Flor Alvarez APRN.HELICOPTER SPECIALIST Work Phone: [facility] 07-07-2023 08:16-0500 Body weight 58.6 kg Miladis Nassar MD Work Phone: [facility] 07-07-2023 08:16-0500 Diastolic blood pressure 66 mm[Hg] Miladis Nassar MD Work Phone: [facility] 07-07-2023 08:16-0500 Heart rate 93 /min Miladis Nassar MD Work Phone: [facility] 07-07-2023 08:16-0500 Respiratory rate 16 /min Miladis Nassar MD Work Phone: [facility] 07-07-2023 08:16-0500 SaO2% (BldA) [Mass fraction] 98 % Miladis Nassar MD Work Phone: [facility] 07-07-2023 08:16-0500 Systolic blood pressure 108 mm[Hg] Miladis Nassar MD Work Phone: [facility] 04-24-2023 10:03-0400 Diastolic blood pressure 65 mm[Hg] Cheryl Alfaro MD Work Phone: [facility] 04-24-2023 10:03-0400 Heart rate 56 /min Cheryl Alfaro MD Work Phone: [facility] 04-24-2023 10:03-0400 Respiratory rate 16 /min Cheryl Alfaro MD Work Phone: [facility] 04-24-2023 10:03-0400 SaO2% (BldA) [Mass fraction] 93 % Cheryl Alfaro MD Work Phone: [facility] 04-24-2023 10:03-0400 Systolic blood pressure 111 mm[Hg] Cheryl Alfaro MD Work Phone: [facility] 04-24-2023 08:54-0400 Body temperature 97.39 [degF] Cheryl Alfaro MD Work Phone: [facility] 04-24-2023 08:54-0400 Body weight 61.1 kg Cheryl Alfaro MD Work Phone: [facility] 04-07-2023 15:24-0400 Body height 160 cm Antonio Longbons PA-C Work Phone: [facility] 04-07-2023 15:24-0400 Body temperature 98.4 [degF] Antonio Longbons PA-C Work Phone: [facility] 04-07-2023 15:24-0400 Body weight 61.15 kg Antonio Longbons PA-C Work Phone: [facility] 04-07-2023 15:24-0400 Diastolic blood pressure 67 mm[Hg] Antonio Longbons PA-C Work Phone: [facility] 04-07-2023 15:24-0400 Heart rate 91 /min Antonio Longbons PA-C Work Phone: [facility] 04-07-2023 15:24-0400 SaO2% (BldA) [Mass fraction] 96 % Antonio Deejaybons PA-C Work Phone: [facility] 04-07-2023 15:24-0400 Systolic blood pressure 115 mm[Hg] Antonio Longbons PA-C Work Phone: [facility] 04-03-2023 08:04-0400 Body temperature 97 [degF] Miladis Nassar MD Work Phone: [facility] 04-03-2023 08:04-0400 Body weight 64.23 kg Miladis Nassar MD Work Phone: [facility] 04-03-2023 08:04-0400 Diastolic blood pressure 68 mm[Hg] Miladis Nassar MD Work Phone: [facility] 04-03-2023 08:04-0400 Heart rate 82 /min Miladis Nassar MD Work Phone: [facility] 04-03-2023 08:04-0400 Respiratory rate 16 /min Miladis Nassar MD Work Phone: [facility] 04-03-2023 08:04-0400 SaO2% (BldA) [Mass fraction] 94 % Miladis Nassar MD Work Phone: [facility] 04-03-2023 08:04-0400 Systolic blood pressure 104 mm[Hg] Miladis Nassar MD Work Phone: [facility] 01-28-2023 10:31-0400 Body weight 65.77 kg Kamila Tannhof SPINNER HYDRAULIC.HELICOPTER SPECIALIST Work Phone: [facility] 01-28-2023 10:31-0400 Diastolic blood pressure 84 mm[Hg] Kamila Tannhof SPINNER HYDRAULIC.HELICOPTER SPECIALIST Work Phone: [facility] 01-28-2023 10:31-0400 Heart rate 80 /min Kamila Tannhof SPINNER HYDRAULIC.HELICOPTER SPECIALIST Work Phone: [facility] 01-28-2023 10:31-0400 Respiratory rate 16 /min Kamila Tannhof SPINNER HYDRAULIC.HELICOPTER SPECIALIST Work Phone: [facility] 01-28-2023 10:31-0400 SaO2% (BldA) [Mass fraction] 96 % Kamila Tannhof SPINNER HYDRAULIC.HELICOPTER SPECIALIST Work Phone: [facility] 01-28-2023 10:31-0400 Systolic blood pressure 120 mm[Hg] Kamila Tannhof SPINNER HYDRAULIC.HELICOPTER SPECIALIST Work Phone: [facility] 11-12-2022 16:32-0400 Body weight 67.31 kg Miladis Nassar MD Work Phone: [facility] 11-12-2022 16:32-0400 Diastolic blood pressure 78 mm[Hg] Miladis Nassar MD Work Phone: [facility] 11-12-2022 16:32-0400 Heart rate 91 /min Miladis Nassar MD Work Phone: [facility] 11-12-2022 16:32-0400 Respiratory rate 18 /min Miladis Nassar MD Work Phone: [facility] 11-12-2022 16:32-0400 SaO2% (BldA) [Mass fraction] 98 % Miladis Nassar MD Work Phone: [facility] 11-12-2022 16:32-0400 Systolic blood pressure 126 mm[Hg] Miladis Nassar MD Work Phone: [facility] Encounters Encounter Date Encounter Type Care Provider Facility Start: 09-06-2023 End: 09-06-2023 Emergency department patient visit MILADIS NASSAR [facility] Start: 08-21-2023 End: 08-21-2023 ambulatory MILADIS NASSAR Facility:[id number] Start: 08-12-2023 End: 08-12-2023 ambulatory KAMALJIT EMMANUELJOYCE Facility:[facility] Start: 07-28-2023 End: 07-28-2023 ambulatory MILADIS NASSAR Facility:[facility] Start: 07-24-2023 Telephone encounter Birgit snider PA-C Work Phone: Orthopaedics Procedures Date Procedure Procedure Detail Performing Clinician Start: 06-10-2023 Breath hydrogen/methane test Antonio gay PA-C Work Phone: Start: 05-04-2023 Radiologic exam esophagus single contrast study Antonio WHIPPLE-Brooke Work Phone: Start: 04-24-2023 Level iv surg pathology gross&microscopic exam Cheryl Alfaro MD Work Phone: Start: 04-24-2023 Esophagogastroduodenoscopy transoral diagnostic Antonio Gayle PA-C Work Phone: Start: 01-28-2023 Us abdominal real time w/image limited Kamila Dick APRN.CNP Work Phone: Start: 11-30-2022 Urinalysis MILADIS NASSAR Plan of Treatment Date Care Activity Detail Author Start: 10-08-2030 Urine microalbumin profile DTa P,Tdap,Td Vaccine (2 - Td or Tdap) [facility] Start: 07-10-2026 Screening for malign ant neoplasm of cervix Pap Testing [facility] Start: 07-07-2024 Covid-19 Vaccine (#1) Covid-19 Vacci ne (#1) [facility] Immunizations Immunization Date Immunization Notes Care Provider Jignesh gregorypramod 04-15-2019 Human Papillomavirus 9-valent vaccine Lilian Hay RN [facility] Work Phone: 05-24-2009 influenza virus vacc ine, unspecified formulation Antonio Gayle PA-C Work Phone: [facility] Payers Date Payer Category Payer Medicaid [id number] 2022 Medicaid [id number] 2021 Unknown [employer] BLUE CARD PPO OOS [id number] 2021-Present [phone] [address] [place] [address] PPO [id number] 2021 Unknown [id number] 2020 Medicaid [id number] 1996 Unknown [id number] 1996 Unknown [id number] 1996 Unknown [id number] 1996 Unknown [id number] Social History Date Type Detail Facility Start: 08-24-2018 End: 04-24-2023 Tobacco smoking status NHIS Smokes tobacco daily [facility] End: 08-10-2020 History of tobacco use Cigarette Smoker [facility] Start: 08-24-2018 End: 07-18-2020 Cigarettes smoked current (pack per day) - Reported 1 [facility] Start: 08-24-2018 End: 07-10-2023 Tobacco use and exposure Smokeless tobacco non-user [facility] Start: 08-30-2021 End: 07-07-2023 Alcohol intake Current drinker of alcohol (finding) [facility] Start: 04-17-2017 History SDOH Alcohol Comment rarely [facility] Start: 1995 Sex Assigned At Not on file [facility] Start: 07-18-2020 End: 01-28-2023 Tobacco use panel [facility] Adult Depression Scr eening Assessment 2 [facility] Start: 04-07-2023 End: 07-10-2023 Tobacco smoking status NHIS Ex-smoker [facility] End: 08-10-2020 History of tobacco use Current smoker [facility] Start: 04-07-2023 End: 07-07-2023 Tobacco use and exposure User of smokeless tobacco [facility] Start: 04-07-2023 [facility] Start: 07-10-2023 Alcohol intake Lifetime non-d vinny (finding) [facility] Clinical Notes 04-05-2022 to 08-21-2023 Kamaljit Saldana PA-C - 07/24/2023 5:07 PM ESTTelephone Encounter - Lloyd Hurtado OCCA - 07/24/2023 1:34 PM ESTTelephone Encounter - Fatoumata Lane - 07/24/2023 10:07 AM ESTPatient Instructions Note Date & Type Note Facility 08-21-2023 Note HNO ID: [id number] Author: ALPA VINSON, OT/L Service: ? Author Type: Occupational Therapist Type: Progress Notes Filed: 08/21/2023 16:12 Note Text: Episode Visit Count: 1 Therapist That Will Accept/Oversee The Plan Of Care: Alpa Vinson Start of Care Date: 08/21/23 Onset Date: 07/28/23 Patient Identified by Name and Date of : Yes [facility] OCCUPATIONAL THERAPY EVALUATION PLAN OF CARE: Assessment: Ko Bah presents with diagnosis of right 5th metacarpal fx that interferes with physical activities, lifting, weight bearing, gripping, twisting, carrying . She presents with impairments in independence in exercise, range of motion, strength, and tissue tenderness. Prognosis for therapy is Excellent due to: current objective clinical presentation . She will benefit from skilled therapy services to meet the goals established for this plan of care as noted below. Goals for Episode of Care created on 08/21/23 through 02/09/24 Increase MP flexion of right SF to 80-85 degrees to assist with gripping for ADL's and work tasks. Patient Goals: rtw Planned Interventions, Frequency, and Duration: Current Frequency: (2-5 visits) Duration: 6 weeks Total Number of Visits Planned: (2-5) Planned Treatment Interventions: Therapeutic exercise (14072), Manual therapy (34375), Fluidotherapy (72240) PLAN FOR NEXT VISIT: maybe fluido, do ROM, add strength if okay with dr. Patient demonstrates good understanding of plan of care and treatment. The above goals and plan of care were discussed and agreed upon by patient/family. 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) Home Environment Patient Lives With: Significant Other (and dtr 2y/o) Pain: Pain Pain Level: 2 Pain Location: Hand - Right, Wrist - Right Description: Aching Frequency: With movement OBJECTIVE MEASURES WITH LEVEL OF FUNCTION: Hand Right Hand AROM: Little Finger UE AROM Right Hand AROM: Little Finger Hand AROM R Little Finger MP Extension : 0 Degrees R Little Finger MP Flexion : 71 Degrees R Little Finger PIP Extension : 0 Degrees R Little Finger PIP Flexion : 89 Degrees R Little Finger DIP Extension : 0 Degrees R Little Finger DIP Flexion : 82 Degrees Right Little Finger Total Active Movement: 242 Education: TREATMENT: OT Treatment Interventions : Therapeutic Exercise Evaluation Evaluation Therapeutic Exercise: 1: tendon glides for table top, hook, straight and full fist per handout, 2x each 2: suggested use of heat for range of motion and pain mgt 3: pt to do mostly a HEP, advised to call dr at 6 wk post-op to see if strengthening is allowed and schedule OT on prn basis based on progress Skilled Intervention: Patient was educated in proper exercise technique and purpose for exercises. Skilled judgment was used in selection of appropriate interventions. Provided written instruction for home exercise program to facilitate proper performance and compliance. Billing * Evaluation Low Complexity: 1 Unit Therapeutic Exercise Treatment Minutes: 10 Skilled Treatment Time Minutes (timed and untimed codes): 36 Total Session Time (minutes): 36 Session Start Time : 1521 Session Stop Time : 1557 Alpa Vinson OT/[facility] 08-12-2023 Note HNO ID: [id number] Author: Kamaljit Saldana PA-C Service: ? Author Type: Physician Facilitator Type: Progress Notes Filed: 08/12/2023 10:58 AM Note Text: Ko Bah underwent the following procedure on 07/28/23 1) Right fifth metacarpal open reduction internal fixation CPT 52238 The patient returns today for follow-up. The patient reports no major issues since surgery outside of general post operative pain. On exam of the right hand, the incision was healed without evidence of infection. All sutures removed. Pin/screw sites were clean without signs of infection. Mild stiffness in small finger of the right hand. No malrotation noted. Mini c-arm in clinic used to obtain x-ray of the right hand. X-ray showed no hardware failure or displacement. Fracture reduction was maintained. Images posted to the medical center ASSESSMENT: Closed displaced fracture of shaft of fifth metacarpal bone of right hand, initial encounter (primary encounter diagnosis) Post-operative state PLAN: We instructed the patient to start performing gentle ROM exercises, but to remain non-weight bearing on the operated extremity. Kemar loops provided today. Wear straps until seen by OT. Return to clinic in 6 weeks following OT. 15 Minutes total visit spent face to face with patient. Greater than 50% of the time was spent for counseling and coordination of care, discussing treatment options and recommendations. Kamaljit Saldana PA-C August 12, 2023 10:38 AM This note was generated with voice recognition software and may contain errors, including spelling, grammar, syntax and misrecognition of what was dictated, that are not fully corrected. [facility] 07-28-2023 Note HNO ID: [id number] Author: Krystyna Yanez DO Service: ? Author Type: Resident Type: Anesthesia Procedure Notes Filed: 07/28/2023 3:08 PM Note Text: ---- Attestation signed by Mabel Wilhelm MD at 07/28/2023 9:26 PM Attending note I was present for the entire procedure supervising the resident and participated in the hall components of the procedure. Patient's information were verified as well as the procedure and laterality.Pt tolerated the procedure well with out any complications. Mabel Portillo MD Staff anesthesiologist Phone : [phone] ---- ANESTHESIOLOGY PROCEDURE NOTE Peripheral Nerve Block General Information Procedure Start Time/Medication Administration: 07/28/2023 2:50 PM Procedure End time: 07/28/2023 3:04 PM Patient location during procedure: induction room Timeout Performed Pre-procedure: timeout performed Consent Obtained: Yes Patient identity confirmed: arm band and patient Reason for block: post-op pain management/at surgeon's request Staffing Anesthesiologist: Mabel Wilhelm MD Resident: Krystyna Yanez DO Performed by: anesthesiologist and resident Preparation Sterility Preparation: hand hygiene performed prior to procedure, sterile gloves, drapes, and procedure tray, surgical cap used, mask used, sterile drape used during line insertion, skin prep agent completely dried prior to procedure Sterility Technique Not Completely Performed Due to Extreme Emergency: No Site Prep: Chloraprep Pre-Procedure Neuro Exam Location: LLE, LUE, RUE and RLE Sensory: intact Motor: intact Procedure Details Patient Position: supine Block Type Upper Extremity: brachial plexus Approach: axillary Laterality: right Injection Technique: single-shot Ultrasound Guided: Yes Image in Chart: yes Moderate Sedation: Yes Local Infiltration: Yes Needle Needle Type: echogenic Needle Gauge: 20 G Needle Length: 10 cm Needle Localization: ultrasound and anatomical landmarks Assessment Injection assessment: negative aspiration, no paresthesia on injection, incremental injection and local visualized surrounding nerve on ultrasound Post-Procedure Neuro Exam Expected Regional Anesthesia: Yes Medications Administered ropivacaine (PF) 5 mg/mL (0.5 %) injection (NAROPIN) - peripheral nerve block 28 mL - 07/28/2023 2:50:00 PM Comments Patient is confirmed by two identifiers, the Risks, benefits and alternatives of the regional anesthesia procedure were explained and confirmed with the patient who agrees to proceed. Standard ASA monitors wee applied according to the procedure protocol. Vital signs were stable throughout the procedure, and the patient was communicating. No pain on injection and the procedure was well tolerated. The post- procedure diagnosis is the same as pre- procedure. No significant findings. No Complications unless noted above. No specimen collected. Minimal or no blood loss Discharge/transfer criteria are met upon discharge. SIGNATURE: Krystyna Yanez DO PATIENT NAME: Ko Bah DATE: July 28, 2023 TIME: 3:07 PM CSN: [id number] [facility] 07-24-2023 History and physical note NEW ENCOUNTER Chief Complaint: closed fracture of right 5th metacarpal History: Patient is a 28 year old female; she reports the following acute injury event: hit punching bag with no boxing glove. right hand dominant. Date of injury/duration of pain: 2 weeks ago - July 17 2023 Location: hand and palm Intensity: Moderate Quality: Burning Aching Job Related: No Symptoms with the following activities: takes ibuprofen and elevate The following things help the symptoms: NSAIDs and elevation Brief Overview: closed displaced 5th metacarpal shaft fracture, nearly 2 weeks out. Patient wearing ulnar gutter cast Social History: Tobacco Use: 1 packs/day, for 6 years. Quit 08/10/2020. 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 omeprazole (PRILOSEC) 40 mg capsule Take 1 capsule by mouth once daily. lamoTRIgine (LAMICTAL) 100 mg tablet Take 100 mg by mouth once daily. hydrOXYzine HCl (ATARAX) 50 mg tablet Take 50 mg by mouth three times daily as needed. ondansetron (ZOFRAN) 4 mg tablet Take 4 mg by mouth every 6 hours as needed. prazosin (MINIPRESS) 1 mg cap Take 1 mg by mouth as needed. At bedtime as needed traZODone (DESYREL) 50 mg tablet TAKE 1 & 1/2 (ONE & ONE-HALF) TABLETS BY MOUTH AT BEDTIME NEEDED FOR INSOMNIA Magnesium 30 mg tablet Take by mouth. multivit with iron,minerals (MULTIVITAMIN AND MINERALS ORAL) Take by mouth. Loperamide HCl (IMODIUM) 2 mg tab Take 1/2 to one full tablet each morning. benztropine (COGENTIN) 0.5 mg tablet Take 0.5 mg by mouth as needed. Patient reports once daily as needed ondansetron orally disintegrating (ZOFRAN ODT) 4 mg disintegrating tablet Take 1 tablet by mouth every 6 hours as needed for Nausea/Vomiting. Allergies: ALLERGIES Allergen Reactions Gluten Swelling, Vomiting Hydrocodone Vomiting Zoloft [Sertraline * GI Upset REVIEW OF SYSTEMS: CONSTITUTIONAL: Denies fever and weight loss. EYES: Denies acute vision changes. ENT: Denies hearing changes or difficulty swallowing. CARDIAC: Denies chest pain or edema. RESPIRATORY: Denies dyspnea, cough or wheeze. GASTROINTESTINAL: Denies abdominal pain, nausea, vomiting. MUSCULOSKELETAL: See HPI. SKIN: Denies any recent rash or lesion. NEUROLOGICAL: Denies numbness or focal weakness. PSYCHIATRIC: No history of psychiatric symptoms or problems. ENDOCRINE: Denies current diagnosis of diabetes. HEMATOLOGY: Denies episodes of easy bleeding. Allergies, medications, past surgical history and past medical history were reviewed per this encounter. Physical Examination: Cast clean and intact. (+) ecchymosis and edema Further examination was difficult to complete secondary to cast. Heart sounds were regular without murmurs. Lung cruz were clear to auscultation bilaterally. RADIOLOGY: DATE OF EXAM: Jul 22 2023 11:53AM AFR 5346 - XR HAND 3V PA/LAT/OBL RT / PROCEDURE REASON: Closed displaced fracture of shaft of fifth metacarpal bone of right hand, initi * * * * Physician Interpretation * * * * HISTORY: Closed displaced fracture of shaft of fifth metacarpal bone of right hand, initial encounter . follow up right hand fracture TECHNIQUE: XR HAND 3V PA/LAT/OBL RT COMPARISON: 07/17/2023 RESULT: No significant change. Oblique fracture of the fifth metacarpal shaft with apex volar angulation. Hand in cast which obscures bony detail. No other significant abnormality. Assessment: Closed displaced fracture of shaft of fifth metacarpal bone of right hand, initial encounter (primary encounter diagnosis) Plan: We discussed with Ms. Bah the diagnosis and proposed treatment options. Treatment options for metacarpal fractures were discussed. We discussed that this may be treated nonoperatively with kemar strapping, and splint immobilization until fracture heals. This option does not involve surgery, however, the bony malalignment will not be corrected, and the patient will likely have some difficulty forming a full composite fist after fracture healing. However, the patient is anticipated to still have functional range of motion. Alternatively, the fracture may be reduced and stabilized surgically, by using temporary K wires (which will require subsequent removal), versus insertion of intramedullary screw which will not require removal, versus plates and screws. Temporary K wires fixation will stabilize the fracture after reduction until fracture has healed. After that, K wires will be removed with no permanent implant in place. Intramedullary screw insertion requires no subsequent removal, and will not likely hinders joint motion after insertion. However, this would leave a permanent implant inside the body, which the patient may or may not desire. Plate and screws may necessitate subsequent removal if they cause excess scar tissue formation, or interferes with tendon gliding. After discussion, the patient desires to proceed with operative management Consent was signed and a case request has been submitted. We are planning on doing the operation 07/28/2023. Cast was bivalved and left in place for removal prior to the surgical procedure. I agree with the Chief Complaint, ROS, and Past Histories independently gathered by the clinical end user support specialist and the remaining scribed note accurately describes my personal service to the patient. 30 Minutes total visit spent face to face with patient. Greater than 50% of the time was spent for counseling and coordination of care, discussing treatment options and recommendations. Kamaljit Saldana PA-C July 24, 2023 11:13 AM This note was generated with voice recognition software and may contain errors, including spelling, grammar, syntax and misrecognition of what was dictated, that are not fully corrected. documented in this encounter [facility] 07-24-2023 Miscellaneous Notes Returned patients call. Was seen by Plastic in [facility] earlier today. According to visit notes, patient is scheduled for surgery on 07/28/[address] Coburn. Patient is aware. Had also received a call from another surgeon. Concern for her cast being bivalved prior to surgery. Instructed patient that her hand would be fine with cast bivalved, makes removal easier prior to surgery. Patient appreciated call and is awaiting further instructions from surgery team. Ko Da Silva Olvin is calling Birgit Turcios PA-C today with concern regarding recent office visit. Patient states Birgit told her there was an opening on 07/30 for surgery and patient wants to know if that is still available. Please call patient to schedule. No chief complaint on file. Patient has been identified by name and birthdate. Duration of symptoms: Person calling: self Call patient at: at home and , it is OK to leave message [phone] (home) [phone] (cell) Was an appointment scheduled: Closing statement: [address] documented in this encounter [facility] 07-24-2023 Note HNO ID: [id number] Author: Corinne Hamilton MA Service: ? Author Type: Head Of Marketing Analytics Type: Progress Notes Filed: 07/24/2023 9:08 AM Note Text: PT ASSESSMENT - CASTING ROOM Ko presents for bivalve of cast for surgery next week. Corinne Hamilton MA [facility] 07-24-2023 Note HNO ID: [id number] Author: Kamaljit Saldana PA-C Service: ? Author Type: Physician Facilitator Type: Progress Notes Filed: 07/24/2023 5:07 PM Note Text: NEW ENCOUNTER Chief Complaint: closed fracture of right 5th metacarpal History: Patient is a 28 year old female; she reports the following acute injury event: hit punching bag with no boxing glove. right hand dominant. Date of injury/duration of pain: 2 weeks ago - July 17 2023 Location: hand and palm Intensity: Moderate Quality: Burning Aching Job Related: No Symptoms with the following activities: takes ibuprofen and elevate The following things help the symptoms: NSAIDs and elevation Brief Overview: closed displaced 5th metacarpal shaft fracture, nearly 2 weeks out. Patient wearing ulnar gutter cast Social History: Tobacco Use: 1 packs/day, for 6 years. Quit 08/10/2020. 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 omeprazole (PRILOSEC) 40 mg capsule Take 1 capsule by mouth once daily. lamoTRIgine (LAMICTAL) 100 mg tablet Take 100 mg by mouth once daily. hydrOXYzine HCl (ATARAX) 50 mg tablet Take 50 mg by mouth three times daily as needed. ondansetron (ZOFRAN) 4 mg tablet Take 4 mg by mouth every 6 hours as needed. prazosin (MINIPRESS) 1 mg cap Take 1 mg by mouth as needed. At bedtime as needed traZODone (DESYREL) 50 mg tablet TAKE 1 AND 1/2 (ONE AND ONE-HALF) TABLETS BY MOUTH AT BEDTIME NEEDED FOR INSOMNIA Magnesium 30 mg tablet Take by mouth. multivit with iron,minerals (MULTIVITAMIN AND MINERALS ORAL) Take by mouth. Loperamide HCl (IMODIUM) 2 mg tab Take 1/2 to one full tablet each morning. benztropine (COGENTIN) 0.5 mg tablet Take 0.5 mg by mouth as needed. Patient reports once daily as needed ondansetron orally disintegrating (ZOFRAN ODT) 4 mg disintegrating tablet Take 1 tablet by mouth every 6 hours as needed for Nausea/Vomiting. Allergies: ALLERGIES Allergen Reactions Gluten Swelling, Vomiting Hydrocodone Vomiting Zoloft [Sertraline * GI Upset REVIEW OF SYSTEMS: CONSTITUTIONAL: Denies fever and weight loss. EYES: Denies acute vision changes. ENT: Denies hearing changes or difficulty swallowing. CARDIAC: Denies chest pain or edema. RESPIRATORY: Denies dyspnea, cough or wheeze. GASTROINTESTINAL: Denies abdominal pain, nausea, vomiting. MUSCULOSKELETAL: See HPI. SKIN: Denies any recent rash or lesion. NEUROLOGICAL: Denies numbness or focal weakness. PSYCHIATRIC: No history of psychiatric symptoms or problems. ENDOCRINE: Denies current diagnosis of diabetes. HEMATOLOGY: Denies episodes of easy bleeding. Allergies, medications, past surgical history and past medical history were reviewed per this encounter. Physical Examination: Cast clean and intact. (+) ecchymosis and edema Further examination was difficult to complete secondary to cast. RADIOLOGY: DATE OF EXAM: Jul 22 2023 11:53AM AFR 5346 - XR HAND 3V PA/LAT/OBL RT / PROCEDURE REASON: Closed displaced fracture of shaft of fifth metacarpal bone of right hand, initi * * * * Physician Interpretation * * * * HISTORY: Closed displaced fracture of shaft of fifth metacarpal bone of right hand, initial encounter . follow up right hand fracture TECHNIQUE: XR HAND 3V PA/LAT/OBL RT COMPARISON: 07/17/2023 RESULT: No significant change. Oblique fracture of the fifth metacarpal shaft with apex volar angulation. Hand in cast which obscures bony detail. No other significant abnormality. Assessment: Closed displaced fracture of shaft of fifth metacarpal bone of right hand, initial encounter (primary encounter diagnosis) Plan: We discussed with Miriam Olvin the diagnosis and proposed treatment options. Treatment options for metacarpal fractures were discussed. We discussed that this may be treated nonoperatively with kemar strapping, and splint immobilization until fracture heals. This option does not involve surgery, however, the bony malalignment will not be corrected, and the patient will likely have some difficulty forming a full composite fist after fracture healing. However, the patient is anticipated to still have functional range of motion. Alternatively, the fracture may be reduced and stabilized surgically, by using temporary K wires (which w (more content not included)... [facility] 07-24-2023 History of Present illness Narrative NEW ENCOUNTER Chief Complaint: closed fracture of right 5th metacarpal History: Patient is a 28 year old female; she reports the following acute injury event: hit punching bag with no boxing glove. right hand dominant. Date of injury/duration of pain: 2 weeks ago - July 17 2023 Location: hand and palm Intensity: Moderate Quality: Burning Aching Job Related: No Symptoms with the following activities: takes ibuprofen and elevate The following things help the symptoms: NSAIDs and elevation Brief Overview: closed displaced 5th metacarpal shaft fracture, nearly 2 weeks out. Patient wearing ulnar gutter cast Social History: Tobacco Use: 1 packs/day, for 6 years. Quit 08/10/2020. 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 Patient History PAST MEDICAL HISTORY Diagnosis Date Anxiety Bipolar disorder ([facility]) counseling center Broken leg 08/2014 Left Leg Deliberate self-cutting history of Depression GERD (gastroesophageal reflux disease) History of bulimia Overweight (BMI 25.0-29.9) PAST SURGICAL HISTORY Procedure Laterality Date COLONOSCOPY FLX DX W/COLLJ SPEC WHEN PFRMD 04/12/2019 Colonoscopy EGD 04/24/2023 ESOPHAGOGASTRODUODENOSCOPY TRANSORAL DIAGNOSTIC 04/12/2019 EGD FRACTURE SURGERY PAST SURGICAL HISTORY OF 09/2014 Left Knee, pins placed busPIRone (BUSPAR) 7.5 mg tablet Take 7.5 mg by mouth two times a day. omeprazole (PRILOSEC) 40 mg capsule Take 1 capsule by mouth once daily. lamoTRIgine (LAMICTAL) 100 mg tablet Take 100 mg by mouth once daily. hydrOXYzine HCl (ATARAX) 50 mg tablet Take 50 mg by mouth three times daily as needed. ondansetron (ZOFRAN) 4 mg tablet Take 4 mg by mouth every 6 hours as needed. prazosin (MINIPRESS) 1 mg cap Take 1 mg by mouth as needed. At bedtime as needed traZODone (DESYREL) 50 mg tablet TAKE 1 & 1/2 (ONE & ONE-HALF) TABLETS BY MOUTH AT BEDTIME NEEDED FOR INSOMNIA Magnesium 30 mg tablet Take by mouth. multivit with iron,minerals (MULTIVITAMIN AND MINERALS ORAL) Take by mouth. Loperamide HCl (IMODIUM) 2 mg tab Take 1/2 to one full tablet each morning. benztropine (COGENTIN) 0.5 mg tablet Take 0.5 mg by mouth as needed. Patient reports once daily as needed ondansetron orally disintegrating (ZOFRAN ODT) 4 mg disintegrating tablet Take 1 tablet by mouth every 6 hours as needed for Nausea/Vomiting. Allergies: ALLERGIES Allergen Reactions Gluten Swelling, Vomiting Hydrocodone Vomiting Zoloft [Sertraline * GI Upset REVIEW OF SYSTEMS: CONSTITUTIONAL: Denies fever and weight loss. EYES: Denies acute vision changes. ENT: Denies hearing changes or difficulty swallowing. CARDIAC: Denies chest pain or edema. RESPIRATORY: Denies dyspnea, cough or wheeze. GASTROINTESTINAL: Denies abdominal pain, nausea, vomiting. MUSCULOSKELETAL: See HPI. SKIN: Denies any recent rash or lesion. NEUROLOGICAL: Denies numbness or focal weakness. PSYCHIATRIC: No history of psychiatric symptoms or problems. ENDOCRINE: Denies current diagnosis of diabetes. HEMATOLOGY: Denies episodes of easy bleeding. Allergies, medications, past surgical history and past medical history were reviewed per this encounter. Physical Examination: Cast clean and intact. (+) ecchymosis and edema Further examination was difficult to complete secondary to cast. RADIOLOGY: DATE OF EXAM: Jul 22 2023 11:53AM AFR 5346 - XR HAND 3V PA/LAT/OBL RT / PROCEDURE REASON: Closed displaced fracture of shaft of fifth metacarpal bone of right hand, initi * * * * Physician Interpretation * * * * HISTORY: Closed displaced fracture of shaft of fifth metacarpal bone of right hand, initial encounter . follow up right hand fracture TECHNIQUE: XR HAND 3V PA/LAT/OBL RT COMPARISON: 07/17/2023 RESULT: No significant change. Oblique fracture of the fifth metacarpal shaft with apex volar angulation. Hand in cast which obscures bony detail. No other significant abnormality. Assessment: Closed displaced fracture of shaft of fifth metacarpal bone of right hand, initial encounter (primary encounter diagnosis) Plan: We discussed with Ms. Bah the diagnosis and proposed treatment options. Treatment options for metacarpal fractures were discussed. We discussed that this may be treated nonoperatively with kemar strapping, and splint immobilization until fracture heals. This option does not involve surgery, however, the bony malalignment will not be corrected, and the patient will likely have some difficulty forming a full composite fist after fracture healing. However, the patient is anticipated to still have functional range of motion. Alternatively, the fracture may be reduced and stabilized surgically, by using temporary K wires (which will require subsequent removal), versus insertion of intramedullary screw which will not require removal, versus plates and screws. Temporary K wires fixation will stabilize the fracture after reduction until fracture has healed. After that, K wires will be removed with no permanent implant in place. Intramedullary screw insertion requires no subsequent removal, and will not likely hinders joint motion after insertion. However, this would leave a permanent implant inside the body, which the patient may or may not desire. Plate and screws may necessitate subsequent removal if they cause excess scar tissue formation, or interferes with tendon gliding. After discussion, the patient desires to proceed with operative management Consent was signed and a case request has been submitted. We are planning on doing the operation 07/28/2023. Cast was bivalved and left in place for removal prior to the surgical procedure. I agree with the Chief Complaint, ROS, and Past Histories independently gathered by the clinical end user support specialist and the remaining scribed note accurately describes my personal service to the patient. 30 Minutes total visit spent face to face with patient. Greater than 50% of the time was spent for counseling and coordination of care, discussing treatment options and recommendations. Kamaljit Saldana PA-C July 24, 2023 11:13 AM This note was generated with voice recognition software and may contain errors, including spelling, grammar, syntax and misrecognition of what was dictated, that are not fully corrected. documented in this encounter [facility] 07-22-2023 Note HNO ID: [id number] Author: Birgit Turcios PA-C Service: ? Author Type: Physician Facilitator Type: Progress Notes Filed: 07/22/2023 1:03 PM Note Text: Ko Bah is a patient of Miladis Nassar MD. 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 Patient was seen in the ED on 07/11/2023 after punching a punching bag with her bare fist the same day. She was placed in a ulnar gutter splint and is here today for further evaluation and treatment. I last saw the patient on 07/17/2023 at which time she was put in a boxers cast. She is here today for repeat x-rays to check for slippage of the fracture given the nature of the fracture. REVIEW OF SYMPTOMS: Constitutional: Fever/chills: No Cardiovascular: Chest Pain: No Musculoskeletal: as noted in the HPI Neurologic: as noted in the HPI SOCIAL HISTORY: Tobacco user? No PHYSICAL EXAMINATION: Vitals: [facility] 06/19/2023 Body Habitus:well nourished and no acute distress Orientation: Normal: Oriented to person, place and time Psych: normal Skin: Color, texture, turgor normal. No rashes or lesions Sensation: sensation to light touch is grossly normal bilaterally Specific MSK Exam Good cap refill. Exam limited due to cast IMAGING: Final results and radiologist's interpretation, available in the [facility] health record. Images were reviewed with the patient/family members in the office today. My personal interpretation of the performed imaging is interval shifting of fracture CLINICAL IMPRESSION / ASSESSMENT: ([id number]) Closed displaced fracture of shaft of fifth metacarpal bone of right hand, initial encounter (primary encounter diagnosis) PLAN: Messages were sent out to the hand surgery teams regarding repair of the fracture. Patient will remain in cast. She is anticipating the surgical office contacting her. Birgit Turcios PA-C This document has been created with the use of voice recognition technology. It may contain inaccuracies: misspellings, inaccurate syntax or word sense that escaped review. [facility] 07-22-2023 Note HNO ID: [id number] Author: Simon Wayne RT(R) Service: Radiology Author Type: Technologist Type: Progress Notes Filed: 07/22/2023 11:52 AM Note Text: Radiology Service Progress Note PATIENT NAME: Ko Bah DATE OF SERVICE: July 22, 2023 TIME: 11:52 AM PATIENT IDENTITY VERIFICATION COMPLETED USING TWO (2) IDENTIFIERS: Name and Date of confirmed by patient verbally. FALL SCREENING: Has the patient had 2 falls in the last year or 1 fall with injury or currently using an Ambulatory Assistive Device (Walker, Cane, Wheelchair, Crutches, etc.)? No PATIENT GENDER DATA: Female. status: : No status: NO. PATIENT RELEVANT IMPLANT DATA REVIEWED: Not Applicable RADIOLOGY DEPARTMENT: General X-ray: Exam(s) Completed: Upper Extremity X-Ray(s): Hand, right PERIPHERAL IV DATA: Not applicable SIGNED BY: RT Maria Eugenia(R) July 22, 2023 11:52 AM [facility] 07-17-2023 Note HNO ID: [id number] Author: Birgit Turcios PA-C Service: ? Author Type: Physician Facilitator Type: Progress Notes Filed: 07/17/2023 3:42 PM Note Text: [facility] CHIEF COMPLAINT(CC): Right fifth metacarpal fracture HISTORY OF PRESENT ILLNESS (HPI): PAIN EVALUATION 07/17/2023 1435 Pain Level: 0 pain 5/10 @ it's worst Pain Location: Hand-Right Description: Aching Duration Amount of Time: 1 Duration Units: Weeks Frequency: Intermittent Intervention/Comfort measure: Medication ibuprofen, Comments: pt here for right 5th met fracture. states despite the bruising, the pain is pretty well controlled with ibuprofen. 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 Patient was seen in the ED on 07/11/2023 after punching a punching bag with her bare fist the same day. She was placed in a ulnar gutter splint and is here today for further evaluation and treatment. REVIEW OF SYMPTOMS (ROS): Constitutional: Any recent fevers? No Cardiovascular: Any chest pain? No Respiratory: Any shortness or breath? No Gastrointestinal: Any abdominal discomfort? No Integumentary: Any recent skin changes or rashes? No Neurologic: Any numbness or tingling? See Above Endocrine: Any diagnosis of diabetes? No Hematologic: Any recent bleeding episodes? No MEDICAL HISTORY: No pertinent PMH, PAST MEDICAL HISTORY Diagnosis Date Anxiety Bipolar disorder (HCC) counseling center Broken leg 08/2014 Left Leg Deliberate self-cutting history of Depression GERD (gastroesophageal reflux disease) History of bulimia Overweight (BMI 25.0-29.9) . PHYSICAL EXAMINATION: Patient's vitals and nursing notes were reviewed. Vitals: LMP 06/19/2023 Skin: Skin color, texture, turgor normal, no suspicious rashes or lesions noted Psychiatric: mood and affect are appropriate, patient is oriented to time, place and person General Appearance: Well appearing, alert, in no acute distress, well-hydrated, and well nourished Cardiovascular: radial pulses normal, no signs of upper or lower extremity edema Respiratory: no respiratory distress, no audible wheezing, no labored breathing, symmetric thoracic excursion Neurologic: bilateral deep tendon reflexes are normal and symmetric with no pathologic reflexes, sensation is grossly intact Lymphatic: no lymph node enlargement noted in the examined area Musculoskeletal Examination: Examination of the right wrist, hand and fingers revealed the following: Inspection: There is bruising to both the dorsal and palmar aspect of the hand. There is mild swelling to the dorsum over the fifth metacarpal area. Range of Motion: Finger ROM: normal ROM of all joints of all fingers of both hands with mild scissoring of the fifth finger Wrist Flexion: normal ROM when compared to the contralateral side Wist Extension: normal ROM when compared to the contralateral side Wrist Ulnar deviation: normal ROM when compared to the contralateral side Wrist Radial Deviation: normal ROM when compared to the contralateral side Supination: normal supination when compared to the contralateral side Pronation: normal pronation when compared to the contralateral side Elbow ROM: normal ROM of the elbow compared to the contraleteral side Muscle Strength: Wrist extension (C6): 5/5 Wrist flexion (C7): 5/5 Neurologic: Dorsal thumb (radial nerve): Normal sensation to light touch Index finger (median nerve): Normal sensation to light touch 5th finger (ulnar nerve): Normal sensation to light touch Additional testing: Snuffbox testing: No pain to palpation IMAGING: Final results and radiologist's interpretation, available in the [facility] health record. Images were reviewed with the patient/family members in the office today. My personal interpretation of the performed imaging is oblique fracture of the fifth metatarsal with apex dorsal angulation ASSESSMENT: Right hand pain (primary encounter diagnosis) Closed displaced fracture of shaft of fifth metacarpal bone of right hand, initial encounter PLAN: Patient was placed in a boxers cast well-formed. I would like to see her back in the middle of next week and repeat x-rays as I do have concern for slipping. I will discuss the patient with lumbar and surgeons. Detailed instructions were reviewed with the patient and all questions were answered in detail. Patient voiced understanding and compliance with the above plan. We discussed emergent need to return to the express care or go to the emergency department. We discussed red flags associated with this condition and emergent treatment if they present. Birgit Turcios PA-C [facility] 07-17-2023 Note HNO ID: [id number] Author: Lloyd Hurtado OCCA Service: ? Author Type: Head Of Marketing Analytics Type: Progress Notes Filed: 07/17/2023 3:38 PM Note Text: PT ASSESSMENT - CASTING ROOM Ko presents for Application of cast. Applied waterproof short arm boxer's cast: to Right arm Patient has been instructed in Care of cast.. OSITO Hendrickson [facility] 07-17-2023 Note HNO ID: [id number] Author: Nurys Denise, RT(R) Service: Radiology Author Type: Technologist Type: Progress Notes Filed: 07/17/2023 2:33 PM Note Text: Radiology Service Progress Note PATIENT NAME: Ko Bah DATE OF SERVICE: July 17, 2023 TIME: 2:32 PM PATIENT IDENTITY VERIFICATION COMPLETED USING TWO (2) IDENTIFIERS: Name and Date of confirmed by patient verbally. FALL SCREENING: Has the patient had 2 falls in the last year or 1 fall with injury or currently using an Ambulatory Assistive Device (Walker, Cane, Wheelchair, Crutches, etc.)? No PATIENT GENDER DATA: Female. status: : No status: NO. PATIENT RELEVANT IMPLANT DATA REVIEWED: Not Applicable RADIOLOGY DEPARTMENT: General X-ray: Exam(s) Completed: Upper Extremity X-Ray(s): Hand, right PERIPHERAL IV DATA: Not applicable SIGNED BY: Jolly Alexandre RT RT Magy(R) July 17, 2023 2:32 PM [facility] 07-17-2023 History of Present illness Narrative PT ASSESSMENT - CASTING ROOM Ko presents for Application of cast. Applied waterproof short arm boxer's cast: to Right arm Patient has been instructed in Care of cast.. OSITO Hendrickson documented in this encounter [facility] 07-17-2023 History of Present illness Narrative Images from the original note were not included. [facility] CHIEF COMPLAINT(CC): Right fifth metacarpal fracture HISTORY OF PRESENT ILLNESS (HPI): PAIN EVALUATION 07/17/2023 1435 Pain Level: 0 pain 5/10 @ it's worst Pain Location: Hand-Right Description: Aching Duration Amount of Time: 1 Duration Units: Weeks Frequency: Intermittent Intervention/Comfort measure: Medication ibuprofen, Comments: pt here for right 5th met fracture. states despite the bruising, the pain is pretty well controlled with ibuprofen. 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 Patient was seen in the ED on 07/11/2023 after punching a punching bag with her bare fist the same day. She was placed in a ulnar gutter splint and is here today for further evaluation and treatment. REVIEW OF SYMPTOMS (ROS): Constitutional: Any recent fevers? No Cardiovascular: Any chest pain? No Respiratory: Any shortness or breath? No Gastrointestinal: Any abdominal discomfort? No Integumentary: Any recent skin changes or rashes? No Neurologic: Any numbness or tingling? See Above Endocrine: Any diagnosis of diabetes? No Hematologic: Any recent bleeding episodes? No MEDICAL HISTORY: No pertinent PMH, PAST MEDICAL HISTORY Diagnosis Date Anxiety Bipolar disorder ([facility]) counseling center Broken leg 08/2014 Left Leg Deliberate self-cutting history of Depression GERD (gastroesophageal reflux disease) History of bulimia Overweight (BMI 25.0-29.9) . PHYSICAL EXAMINATION: Patient's vitals and nursing notes were reviewed. Vitals: LMP 06/19/2023 Skin: Skin color, texture, turgor normal, no suspicious rashes or lesions noted Psychiatric: mood and affect are appropriate, patient is oriented to time, place and person General Appearance: Well appearing, alert, in no acute distress, well-hydrated, and well nourished Cardiovascular: radial pulses normal, no signs of upper or lower extremity edema Respiratory: no respiratory distress, no audible wheezing, no labored breathing, symmetric thoracic excursion Neurologic: bilateral deep tendon reflexes are normal and symmetric with no pathologic reflexes, sensation is grossly intact Lymphatic: no lymph node enlargement noted in the examined area Musculoskeletal Examination: Examination of the right wrist, hand and fingers revealed the following: Inspection: There is bruising to both the dorsal and palmar aspect of the hand. There is mild swelling to the dorsum over the fifth metacarpal area. Range of Motion: Finger ROM: normal ROM of all joints of all fingers of both hands with mild scissoring of the fifth finger Wrist Flexion: normal ROM when compared to the contralateral side Wist Extension: normal ROM when compared to the contralateral side Wrist Ulnar deviation: normal ROM when compared to the contralateral side Wrist Radial Deviation: normal ROM when compared to the contralateral side Supination: normal supination when compared to the contralateral side Pronation: normal pronation when compared to the contralateral side Elbow ROM: normal ROM of the elbow compared to the contraleteral side Muscle Strength: Wrist extension (C6): 5/5 Wrist flexion (C7): 5/5 Neurologic: Dorsal thumb (radial nerve): Normal sensation to light touch Index finger (median nerve): Normal sensation to light touch 5th finger (ulnar nerve): Normal sensation to light touch Additional testing: Snuffbox testing: No pain to palpation IMAGING: Final results and radiologist's interpretation, available in the [facility] health record. Images were reviewed with the patient/family members in the office today. My personal interpretation of the performed imaging is oblique fracture of the fifth metatarsal with apex dorsal angulation ASSESSMENT: Right hand pain (primary encounter diagnosis) Closed displaced fracture of shaft of fifth metacarpal bone of right hand, initial encounter PLAN: Patient was placed in a boxers cast well-formed. I would like to see her back in the middle of next week and repeat x-rays as I do have concern for slipping. I will discuss the patient with lumbar and surgeons. Detailed instructions were reviewed with the patient and all questions were answered in detail. Patient voiced understanding and compliance with the above plan. We discussed emergent need to return to the express care or go to the emergency department. We discussed red flags associated with this condition and emergent treatment if they present. Birgit Turcios PA-C documented in this encounter [facility] 07-10-2023 Note HNO ID: [id number] Author: Flor Alvarez APRN.HELICOPTER SPECIALIST Service: ? Author Type: Nurse Practitioner Type: Progress Notes Filed: 07/10/2023 12:27 PM Note Text: Maternity Nurse offered: Patient declinesMiriam Connell is a 28 year old who presents for an annual gynecologic exam without complaints. Menses: cycles every 30 days and 5 days of normal flow. Contraception: none HPV vaccine: Yes, 2019 and also had in childhood Last Pap: 04/20/2019 normal HPV: N/A History of abnormal pap: No Last mammogram: never Sexually active: Yes History of STDS: None Pain with intercourse: Occasionally Postcoital bleeding: Occasionally (reports that he does not clip his nails before intercourse ) OB History T1 L1 SAB0 IAB0 Ectopic0 Multiple0 Live Births1 [employer] History LMP: 06/19/2023 (Approximate), Having periods Age at Menarche: Age at First : Age at Menopause: [employer] History Comments: Sexual Activity: Yes; Male Contraception: None PAST MEDICAL HISTORY Diagnosis Date Anxiety Bipolar disorder ([facility]) counseling center Broken leg 08/2014 Left Leg Deliberate self-cutting history of Depression GERD (gastroesophageal reflux disease) History of bulimia Overweight (BMI 25.0-29.9) PAST SURGICAL HISTORY Procedure Laterality Date COLONOSCOPY FLX DX W/COLLJ SPEC WHEN PFRMD 04/12/2019 Colonoscopy EGD 04/24/2023 ESOPHAGOGASTRODUODENOSCOPY TRANSORAL DIAGNOSTIC 04/12/2019 EGD FRACTURE SURGERY PAST SURGICAL HISTORY OF 09/2014 Left Knee, pins placed FAMILY HISTORY Problem Relation Age of Onset None Mother Psychiatry Mother bipolar other (endometriosis) Mother anxiety with OCPs/MARY Psychiatry Father anxiety Diabetes Father Psychiatry Sister bipolar other (endometriosis) Sister Psychiatry Brother bipolar Psychiatry Maternal Grandmother other (Liver Failure) Maternal Grandmother SOCIAL HISTORY Social History Tobacco Use Smoking status: Former Packs/day: 1.00 Years: 6.00 Additional pack years: 0.00 Total pack years: 6.00 Types: Cigarettes Quit date: 2020 Years since quittin.9 Smokeless tobacco: Never Vaping Use Vaping Use: current everyday user Substances: Nicotine, Flavoring Devices: Disposable Substance Use Topics Alcohol use: Never Drug use: Yes Types: Marijuana REVIEW OF SYSTEMS Abdomen: No abdominal pain, nausea, vomiting, diarrhea, or constipation. No bloating, early satiety, indigestion, or increased flatulence. Bladder: No dysuria, gross hematuria, urinary frequency, urinary urgency, or incontinence. Breast: No breast lumps, nipple d/c, overlying skin changes, redness or skin retraction. Allergies and current medication updated:Yes EXAM: BP 100/64 Ht 5' 3 (1.60m) Wt 132 lb 12.8 oz (60.2kg) LMP 06/19/2023 BMI 23.53 kg/(m2). GENERAL: pleasant, female in no apparent distress HEENT: Normocephalic, atraumatic, mucus membranes moist, and no lesions NECK: Supple, full range of motion, no adenopathy, and thyroid normal DERMATOLOGY: Normal, without lesions, non-icteric, and non-hirsute BREAST: soft, non-tender, symmetric, no dominant mass, normal nipple-areolar complex, no lymphadenopathy, and no nipple discharge + fibrocystic changes to left breast CHEST: Normal inspiratory effort ABDOMEN: soft, non-tender, and no masses PELVIC: external genitalia normal, normal Bartholin's glands, urethra, [place]'s glands, no vulvar lesions, no cervical lesions, good vaginal support, physiologic discharge present, normal appearing perineal body and perianal region BIMANUAL: uterus normal size, shape and consistency, no adnexal masses, and non-tender RECTOVAGINAL: deferred. NEURO: alert and oriented x3,exam grossly non-focal EXTREMITIES: normal ASSESSMENT/PLAN: 1) Health maintenance: Pap done with reflex HPV. Nutrition, exercise and routine health maintenance exams reviewed. Smoking cessation: Smoking cessation encouraged and resources provided. 2) Contraception: none. Contraceptive options reviewed and information provided. Recommend vitamin. Reports that she is not preventing nor trying for . 3) STD screening: Accepts full STD screeening including HIV, Syphilis and Hepatitis. 4) Follow up one year or sooner as needed Fibrocystic disease of left breast - ICD9: 610.1, ICD10: N60.12 - Decrease caffeine (pop, coffee, tea, chocolate) and any alcohol - Ibuprofen or Tylenol - Wear a well fitting supportive bra. - Discussed self breast awareness, to notify with any changes PCB (post coital bleeding) - ICD9: 626.7, ICD10: N93.0 - Pap and STD testing done Flor Alvarez APRN.CNP [facility] 07-10-2023 Instructions Flor Alvarez APRN.CNP - 07/10/2023 11:52 AM EST From [facility]'s Tobacco Cessation website: Our comprehensive smoking cessation program contains three main modules. These modules include the following: One-on-one weekly 30-minute counseling sessions with a respiratory therapist. Education about the various nicotine replacement therapies and medications and alternative methods used for cessation. Guidance and support; plus, we will contact your physician to obtain any required prescriptions for medications related to cessation. Insurance is accepted for this six-week program. Please check with your provider about whether your plan covers tobacco cessation programs. In the event your insurance provider does not cover your six-week smoking cessation program, we encourage you to contact us at your earliest convenience by calling . One of our friendly team members will be happy to help you with your financial plan. Contact [phone] for more information. [facility] Visit [email or web address] or call 9-021-MLOX-NOW Fibrocystic breast change is a common benign condition that can affect premenopausal women, resulting in lumpy breast tissue caused by hormonal fluctuations. This can result in pain that occurs constantly or cyclically with your period. Caffeine (pop, coffee, tea, chocolate) and alcohol use are risk factors that may contribute to fibrocystic breast changes. Ibuprofen or Tylenol can be used to help with the pain. Wear a well fitting supportive bra. Contact your provider with any concern for breast changes and always have a good self breast awareness. documented in this encounter [facility] 07-10-2023 History of Present illness Narrative Maternity Nurse offered: Patient declines. Ko is a 28 year old who presents for an annual gynecologic exam without complaints. Menses: cycles every 30 days and 5 days of normal flow. Contraception: none HPV vaccine: Yes, 2019 and also had in childhood Last Pap: 04/20/2019 normal HPV: N/A History of abnormal pap: No Last mammogram: never Sexually active: Yes History of STDS: None Pain with intercourse: Occasionally Postcoital bleeding: Occasionally (reports that he does not clip his nails before intercourse ) OB History T1 L1 SAB0 IAB0 Ectopic0 Multiple0 Live Births1 [employer] History LMP: 06/19/2023 (Approximate), Having periods Age at Menarche: Age at First : Age at Menopause: [employer] History Comments: Sexual Activity: Yes; Male Contraception: None PAST MEDICAL HISTORY Diagnosis Date Anxiety Bipolar disorder (HCC) counseling center Broken leg 08/2014 Left Leg Deliberate self-cutting history of Depression GERD (gastroesophageal reflux disease) History of bulimia Overweight (BMI 25.0-29.9) PAST SURGICAL HISTORY Procedure Laterality Date COLONOSCOPY FLX DX W/COLLJ SPEC WHEN PFRMD 04/12/2019 Colonoscopy EGD 04/24/2023 ESOPHAGOGASTRODUODENOSCOPY TRANSORAL DIAGNOSTIC 04/12/2019 EGD FRACTURE SURGERY PAST SURGICAL HISTORY OF 09/2014 Left Knee, pins placed FAMILY HISTORY Problem Relation Age of Onset None Mother Psychiatry Mother bipolar other (endometriosis) Mother anxiety with OCPs/MARY Psychiatry Father anxiety Diabetes Father Psychiatry Sister bipolar other (endometriosis) Sister Psychiatry Brother bipolar Psychiatry Maternal Grandmother other (Liver Failure) Maternal Grandmother SOCIAL HISTORY Social History Tobacco Use Smoking status: Former Packs/day: 1.00 Years: 6.00 Additional pack years: 0.00 Total pack years: 6.00 Types: Cigarettes Quit date: 2020 Years since quittin.9 Smokeless tobacco: Never Vaping Use Vaping Use: current everyday user Substances: Nicotine, Flavoring Devices: Disposable Substance Use Topics Alcohol use: Never Drug use: Yes Types: Marijuana REVIEW OF SYSTEMS Abdomen: No abdominal pain, nausea, vomiting, diarrhea, or constipation. No bloating, early satiety, indigestion, or increased flatulence. Bladder: No dysuria, gross hematuria, urinary frequency, urinary urgency, or incontinence. Breast: No breast lumps, nipple d/c, overlying skin changes, redness or skin retraction. Allergies and current medication updated:Yes EXAM: BP 100/64 Ht 5' 3 (1.60m) Wt 132 lb 12.8 oz (60.2kg) LMP 06/19/2023 BMI 23.53 kg/(m^2). GENERAL: pleasant, female in no apparent distress HEENT: Normocephalic, atraumatic, mucus membranes moist, and no lesions NECK: Supple, full range of motion, no adenopathy, and thyroid normal DERMATOLOGY: Normal, without lesions, non-icteric, and non-hirsute BREAST: soft, non-tender, symmetric, no dominant mass, normal nipple-areolar complex, no lymphadenopathy, and no nipple discharge + fibrocystic changes to left breast CHEST: Normal inspiratory effort ABDOMEN: soft, non-tender, and no masses PELVIC: external genitalia normal, normal Bartholin's glands, urethra, [place]'s glands, no vulvar lesions, no cervical lesions, good vaginal support, physiologic discharge present, normal appearing perineal body and perianal region BIMANUAL: uterus normal size, shape and consistency, no adnexal masses, and non-tender RECTOVAGINAL: deferred. NEURO: alert and oriented x3,exam grossly non-focal EXTREMITIES: normal ASSESSMENT/PLAN: 1) Health maintenance: Pap done with reflex HPV. Nutrition, exercise and routine health maintenance exams reviewed. Smoking cessation: Smoking cessation encouraged and resources provided. 2) Contraception: none. Contraceptive options reviewed and information provided. Recommend vitamin. Reports that she is not preventing nor trying for . 3) STD screening: Accepts full STD screeening including HIV, Syphilis and Hepatitis. 4) Follow up one year or sooner as needed Fibrocystic disease of left breast - ICD9: 610.1, ICD10: N60.12 - Decrease caffeine (pop, coffee, tea, chocolate) and any alcohol - Ibuprofen or Tylenol - Wear a well fitting supportive bra. - Discussed self breast awareness, to notify with any changes PCB (post coital bleeding) - ICD9: 626.7, ICD10: N93.0 - Pap and STD testing done Flor Alvarez APRN.HELICOPTER SPECIALIST documented in this encounter [facility] 07-07-2023 Note HNO ID: [id number] Author: Miladis Nassar MD Service: ? Author Type: Physician Type: Progress Notes Filed: 07/07/2023 8:51 AM Note Text: Chief Complaint Patient presents with: ER F/U: Patient reports in ER 2 x in last week and has concerns- prefers to address this VS physical HPI Ko Bah is a 28 year old female who presents here today for ER Follow Up. PMH: anxiety, bulimia and bipolar disorder which [facility] Patient evaluated at [facility] ED on 06/30 for c/o SOB, intermittent chest pain, intermittent flank pain, and intermittent head pain which started a couple days prior. Workup in the ED negative including CBC and CXR. PERC negative so was not worked up for PE. With normal exam was discharged home without change to regimen. Returned on 07/04 for copmlaint of anxiety and SOB, lightheadedness, and dizziness after taking Vistaril. Symptoms had resolved by the time she got to the exam room. Offered repeat workup, but patient refused. Discharged home again without change in regimen. 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 Also notes some right flank pain which occurs when she takes a deep breath. Denies fever/chills, cough, wheezing, hemoptysis, urinary symptoms, abdominal pain. Patient states that her last [facility] 1 week [facility]. States that they increased her dosage of lamictal from 100 mg to 200 mg for uncontrolled anxiety and manic episodes. Patient notes that she decreased the dosage on her own yesterday because she thought it could be causing her SOB. Has not spoken with psychiatry about this. Quit smoking cigarettes a couple years ago, but does vape. Would like help with cessation and will try OTC nicotine replacement. 07/07/2023 0849 Last Filed Value PHQ-9 Little interest or pleasure in doing things Not at all Not at all Feeling down, depressed, or hopeless Several days Several days Trouble falling or staying asleep, or sleeping too much Several days Several days Feeling tired or having little energy Several days Several days Poor appetite or overeating Several days Several days Feeling bad about yourself - or that you are a failure or have let yourself or your family down More than half the days More than half the days Trouble concentrating on things, such as reading the newspaper or watching television Several days Several days Moving or speaking so slowly that other people could have noticed. Or the opposite - being so fidgety or restless that you have been moving around a lot more than usual Not at all Not at all Thoughts that you would be better off , or of hurting yourself in some way Not at all Not at allThoughts that you would be better off , or of hurting yourself in some way. Not at all. Last Filed Value If you checked off any problems, how difficult have these problems made it for you to do your work, take care of things at home, or get along with other people? Somewhat difficult Somewhat difficult PHQ-9 score 7 7 PHQ-9 Score 7 7PHQ-9 Score. 7. Last Filed Value PHQ-2 score 1 1 PHQ-2 Score 1 1 07/07/2023 0850 Last Filed Value SALBADOR-7 - over the last 2 weeks... Feeling nervous, anxious, or on edge Nearly Everyday Nearly Everyday Not being able to stop or control worrying Nearly Everyday Nearly Everyday Worrying too much about different things Nearly Everyday Nearly Everyday Trouble relaxing More than half the days More than half the days Being so restless that it is hard to sit still Not at all Not at all Becoming easily annoyed or irritable Several days Several days Feeling afraid, as if something awful might happen Nearly Everyday Nearly Everyday How difficult to do work, care for home, get along with people Somewhat difficult Somewhat difficult SALBADOR-2 Total Score 6 6 SALBADOR-7 Total Score 15 15 SALBADOR-7 Score 15 15 Past medical history, appointments, medications, allergies reviewed. Previous Medical History PAST MEDICAL HISTORY Diagnosis Date Anxiety Bipolar disorder ([facility]) counseling center Broken leg 08/2014 Left Leg Deliberate self-cutting history of Depression GERD (gastroesophageal reflux disease) History of bulimia Overweight (BMI 25.0-29.9) Previous Surgical History PAST SURGICAL HISTORY Procedure Laterality Date COLONOSCOPY FLX DX W/COLLJ SPEC WHEN PFRMD 04/12/2019 Colonoscopy EGD 04/24/2023 ESOPHAGOGASTRODUODENOSCOPY TRANSORAL DIAGNOSTIC 04/12/2019 EGD FRACTURE SURGERY PAST SURGICAL HISTORY OF 09/2014 Left Knee, pins placed Family History FAMILY HISTORY Problem Relation Age of Onset None Mother Psychiatry Mother bipolar other (endometriosis) Mother anxiety with OCPs/MARY Psychiatry Father anxiety Diabetes Father Psychiatry Sister bipolar Psychiatry Maternal Grand (more content not included)... [facility] 07-07-2023 History of Present illness Narrative Chief Complaint Patient presents with: ER F/U: Patient reports in ER 2 x in last week and has concerns- prefers to address this VS physical HPI Ko Bah is a 28 year old female who presents here today for ER Follow Up. PMH: anxiety, bulimia and bipolar disorder which [facility] Patient evaluated at [facility] ED on 06/30 for c/o SOB, intermittent chest pain, intermittent flank pain, and intermittent head pain which started a couple days prior. Workup in the ED negative including CBC and CXR. PERC negative so was not worked up for PE. With normal exam was discharged home without change to regimen. Returned on 07/04 for copmlaint of anxiety and SOB, lightheadedness, and dizziness after taking Vistaril. Symptoms had resolved by the time she got to the exam room. Offered repeat workup, but patient refused. Discharged home again without change in regimen. 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 Also notes some right flank pain which occurs when she takes a deep breath. Denies fever/chills, cough, wheezing, hemoptysis, urinary symptoms, abdominal pain. Patient states that her [facility]. States that they increased her dosage of lamictal from 100 mg to 200 mg for uncontrolled anxiety and manic episodes. Patient notes that she decreased the dosage on her own yesterday because she thought it could be causing her SOB. Has not spoken with psychiatry about this. Quit smoking cigarettes a couple years ago, but does vape. Would like help with cessation and will try OTC nicotine replacement. 07/07/2023 0849 Last Filed Value PHQ-9 Little interest or pleasure in doing things Not at all Not at all Feeling down, depressed, or hopeless Several days Several days Trouble falling or staying asleep, or sleeping too much Several days Several days Feeling tired or having little energy Several days Several days Poor appetite or overeating Several days Several days Feeling bad about yourself - or that you are a failure or have let yourself or your family down More than half the days More than half the days Trouble concentrating on things, such as reading the newspaper or watching television Several days Several days Moving or speaking so slowly that other people could have noticed. Or the opposite - being so fidgety or restless that you have been moving around a lot more than usual Not at all Not at all Thoughts that you would be better off , or of hurting yourself in some way Not at all Not at allThoughts that you would be better off , or of hurting yourself in some way. Not at all. Last Filed Value If you checked off any problems, how difficult have these problems made it for you to do your work, take care of things at home, or get along with other people? Somewhat difficult Somewhat difficult PHQ-9 score 7 7 PHQ-9 Score 7 7PHQ-9 Score. 7. Last Filed Value PHQ-2 score 1 1 PHQ-2 Score 1 1 07/07/2023 0850 Last Filed Value SALBADOR-7 - over the last 2 weeks... Feeling nervous, anxious, or on edge Nearly Everyday Nearly Everyday Not being able to stop or control worrying Nearly Everyday Nearly Everyday Worrying too much about different things Nearly Everyday Nearly Everyday Trouble relaxing More than half the days More than half the days Being so restless that it is hard to sit still Not at all Not at all Becoming easily annoyed or irritable Several days Several days Feeling afraid, as if something awful might happen Nearly Everyday Nearly Everyday How difficult to do work, care for home, get along with people Somewhat difficult Somewhat difficult SALBADOR-2 Total Score 6 6 SALBADOR-7 Total Score 15 15 SALBADOR-7 Score 15 15 Past medical history, appointments, medications, allergies reviewed. Previous Medical History PAST MEDICAL HISTORY Diagnosis Date Anxiety Bipolar disorder ([facility]) counseling center Broken leg 08/2014 Left Leg Deliberate self-cutting history of Depression GERD (gastroesophageal reflux disease) History of bulimia Overweight (BMI 25.0-29.9) Previous Surgical History PAST SURGICAL HISTORY Procedure Laterality Date COLONOSCOPY FLX DX W/COLLJ SPEC WHEN PFRMD 04/12/2019 Colonoscopy EGD 04/24/2023 ESOPHAGOGASTRODUODENOSCOPY TRANSORAL DIAGNOSTIC 04/12/2019 EGD FRACTURE SURGERY PAST SURGICAL HISTORY OF 09/2014 Left Knee, pins placed Family History FAMILY HISTORY Problem Relation Age of Onset None Mother Psychiatry Mother bipolar other (endometriosis) Mother anxiety with OCPs/MARY Psychiatry Father anxiety Diabetes Father Psychiatry Sister bipolar Psychiatry Maternal Grandmother other (Liver Failure) Maternal Grandmother other (endometriosis) Sister Psychiatry Brother bipolar Patient Allergies ALLERGIES Allergen Reactions Gluten Swelling, Vomiting Hydrocodone Vomiting Zoloft [Sertraline * GI Upset Current Medications Current Outpatient Medications on File Prior to Visit Medication Sig busPIRone (BUSPAR) 7.5 mg tablet Take 7.5 mg by mouth two times a day. lamoTRIgine (LAMICTAL) 100 mg tablet Take 100 mg by mouth once daily. hydrOXYzine HCl (ATARAX) 50 mg tablet Take 50 mg by mouth three times daily as needed. ondansetron (ZOFRAN) 4 mg tablet Take 4 mg by mouth every 6 hours as needed. prazosin (MINIPRESS) 1 mg cap Take 1 mg by mouth as needed. At bedtime as needed traZODone (DESYREL) 50 mg tablet TAKE 1 & 1/2 (ONE & ONE-HALF) TABLETS BY MOUTH AT BEDTIME NEEDED FOR INSOMNIA Magnesium 30 mg tablet Take by mouth. multivit with iron,minerals (MULTIVITAMIN AND MINERALS ORAL) Take by mouth. benztropine (COGENTIN) 0.5 mg tablet Take 0.5 mg by mouth as needed. Patient reports once daily as needed omeprazole (PRILOSEC) 40 mg capsule Take 1 capsule by mouth once daily. Loperamide HCl (IMODIUM) 2 mg tab Take 1/2 to one full tablet each morning. fluticasone (FLOVENT HFA) 110 mcg/actuation inhaler Inhale 2 Puffs as instructed twice daily. (Patient not taking: Reported on 05/21/2021) FLUoxetine (PROZAC) 20 mg capsule Take 1 capsule by mouth once daily. (Patient not taking: Reported on 04/18/2019) ondansetron orally disintegrating (ZOFRAN ODT) 4 mg disintegrating tablet Take 1 tablet by mouth every 6 hours as needed for Nausea/Vomiting. No current facility-administered medications on file prior to visit. Social History Social History Tobacco Use Smoking status: Every Day Packs/day: 1.00 Years: 6.00 Additional pack years: 0.00 Total pack years: 6.00 Types: Cigarettes Last attempt to quit: 11/15/2016 Years since quittin.6 Smokeless tobacco: Current Tobacco comments: vape Substance Use Topics Alcohol use: Yes Comment: rarely Review of Symptoms REVIEW OF SYSTEMS See HPI EXAM: BP 108/66 Pulse 93 Resp 16 Wt 58.6 kg (129 lb 3.2 oz) LMP 06/19/2023 (Approximate) SpO2 98% BMI 22.89 kg/m General Appearance: Well appearing, alert, in no acute distress, well-hydrated, well nourished.. Skin: Skin color, texture, turgor normal, no suspicious rashes or lesions. Oropharynx: Lips, mucosa, and tongue normal, teeth and gums normal, oropharynx normal. Neck: Supple, no adenopathy; thyroid symmetric, normal size, no bruits. Lungs: Lungs clear to auscultation. No wheezing, rhonchi, rales.. Heart: RRR without murmur, gallop, or rubs. No ectopy. Musculoskeletal: No joint swelling, deformity, or tenderness. Health Maintenance List Hepatitis B Vaccine(1 of 3 - 3-dose series) Never done Covid-19 Vaccine(1) Never done Pneumococcal Vaccine(1 - PCV) Never done Pap Testing due on 04/15/2022 Depression Assessment Never done Influenza Vaccine(1) due on 04/10/2023 DTaP,Tdap,Td Vaccine(2 - Td or Tdap) due on 10/08/2030 Hepatitis C Screening Completed HIV Screening Completed HPV Vaccine Discontinued ASSESSMENT/PLAN: 1. Posterior chest pain - ICD9: 786.59, ICD10: R07.89 (primary diagnosis) Workup in the ED negative 1 week ago. Normal exam and vitals today. Suspect pain is either somatic or related to pleurisy vs intercostal pain. Discussed importance of taking medications as prescribed by her psychiatrist and should contact their office with rx concerns. Start OTC NSAIDs PRN for pain and call if symptoms change or worsen. 2. Anxiety - ICD9: 300.00, ICD10: F41.9 See above. 3. Bipolar affective disorder, current episode mixed, current episode severity unspecified (HCC) - ICD9: 296.60, ICD10: F31.60 See above. 4. Nicotine abuse - ICD9: 305.1, ICD10: Z72.0 - Cessation encouraged. - Physiologic and physical aspects of tobacco addiction as well as strategies for quitting were discussed. - Counseling was given focusing on the harmful effects of this addiction especially given the patient's medical condition(s) which will be worsened because of the chemicals in tobacco. - Discussed use of OTC nicotine replacement therapy. I spent a total of 30 minutes on the date of the service which included preparing to see the patient, [id number] patient care, completing clinical documentation, obtaining and/or reviewing separately obtained history, performing a medically appropriate examination, counseling and educating the patient/family/caregiver, and ordering medications, tests, or procedures. Miladis Nassar MD documented in this encounter [facility] 06-30-2023 Miscellaneous Notes Patient call in for chest discomfort with trouble catching breath. Issue has been going off and on for a day. Nurse Triage assessment completed with protocol recommending for disposition of Go to ED now. Care advice reviewed with patient, patient stated understanding. Reason for Disposition [1] Chest pain (or angina ) comes and goes AND [2] is happening more often (increasing in frequency) or getting worse (increasing in severity) (Exception: Chest pains that last only a few seconds.) Answer Assessment - Initial Assessment Questions 1. LOCATION: Front on left side 2. RADIATION: Radiates to left side of back 3. ONSET: Yesterday with trouble breathing 4. PATTERN: Coming and going. 5. DURATION: Not long, 10-15 seconds. 6. SEVERITY: Rates pain 4 out of 10 7. CARDIAC RISK FACTORS: Had preeclampsia. 8. PULMONARY RISK FACTORS: Denies 9. CAUSE: Unsure 10. OTHER SYMPTOMS: Nausea, sour stomach, difficulty breathing where it is hard to catch breath 11. Denies, just finished las menstrual cycle. Protocols used: Chest [id number] documented in this encounter [facility] 06-11-2023 Note HNO ID: [id number] Author: Karina Gandhi RN Service: ? Author Type: Registered Nurse Type: Progress Notes Filed: 06/11/2023 11:31 AM Note Text: Name: Ko Bah [facility]#: [id number] Date: 06/11/2023 FRUCTOSE - BREATH HYDROGEN AND METHANE TEST Indication: Bloating, Abdominal Pain, and Diarrhea Pain Assessment: No pain is present. Test Preparation: NPO for since last evening. No antibiotics or Pepto Bismol have been taken during the last 4 weeks. No colonscopy within the last 3-4 weeks A 25g Fructose solution was given. Breath samples were taken every 20 minutes for 1 hours. The FRUCTOSE breath hydrogen/methane test was completed. .Karina Gandhi RN [facility] 06-11-2023 Miscellaneous Notes Spoke with Ko Bah on June 11, 2023.. Informed Ms. Bah of results-Negative / and instructions to establish care with New GI provider. Ms. Ko Bah verbalized understanding gave her scheduling number [phone] and transferred her to scheduling for an appointment. Sahara Floyd LPN documented in this encounter [facility] 06-10-2023 Note HNO ID: [id number] Author: Jose Juan Rosas LPN Service: ? Author Type: LICENSED NURSE Type: Progress Notes Filed: 06/10/2023 2:10 PM Note Text: Name: Ko Bah CCF#: [id number] Date: 06/10/2023 LACTOSE - BREATH HYDROGEN AND METHANE TEST Indication: Bloating, Abdominal Pain, and Diarrhea Pain Assessment: No pain is present. Test Preparation: NPO for since last evening. No antibiotics or Pepto Bismol have been taken during the last 4 weeks. No colonscopy within the last 3-4 weeks A 25g Lactose solution was given. Breath samples were taken every 20 minutes for 2.0 hours. The LACTOSE breath hydrogen/methane test was completed. .Jose Juan Rosas LPN [facility] 06-10-2023 History of Present illness Narrative Name: Ko Bah F#: [id number] Date: 06/10/2023 LACTOSE - BREATH HYDROGEN & METHANE TEST Indication: Bloating, Abdominal Pain, and Diarrhea Pain Assessment: No pain is present. Test Preparation: NPO for since last evening. No antibiotics or Pepto Bismol have been taken during the last 4 weeks. No colonscopy within the last 3-4 weeks A 25g Lactose solution was given. Breath samples were taken every 20 minutes for 2.0 hours. The LACTOSE breath hydrogen/methane test was completed. .Jose Juan Rosas LPN documented in this encounter [facility] 05-04-2023 Note HNO ID: [id number] Author: Junie Shen RT(R) Service: Radiology Author Type: Technologist Type: Progress Notes Filed: 05/04/2023 9:56 AM Note Text: Radiology Service Progress Note PATIENT NAME: Ko Bah DATE OF SERVICE: May 04, 2023 TIME: 9:56 AM PATIENT IDENTITY VERIFICATION COMPLETED USING TWO (2) IDENTIFIERS: Name and Date of confirmed by patient verbally. FALL SCREENING: Has the patient had 2 falls in the last year or 1 fall with injury or currently using an Ambulatory Assistive Device (Walker, Cane, Wheelchair, Crutches, etc.)? No PATIENT GENDER DATA: Female. status: : No status: NO. PATIENT RELEVANT IMPLANT DATA REVIEWED: Not Applicable RADIOLOGY DEPARTMENT: General X-ray: Exam(s) Completed: GI/ Procedure(s): Esophogram with barium contrast PERIPHERAL IV DATA: Not applicable SIGNED BY: RT Sherry(R) May 04, 2023 9:56 AM [facility] 05-04-2023 History of Present illness Narrative Radiology Service Progress Note PATIENT NAME: Ko Bah DATE OF SERVICE: May 04, 2023 TIME: 9:56 AM PATIENT IDENTITY VERIFICATION COMPLETED USING TWO (2) IDENTIFIERS: Name and Date of confirmed by patient verbally. FALL SCREENING: Has the patient had 2 falls in the last year or 1 fall with injury or currently using an Ambulatory Assistive Device (Walker, Cane, Wheelchair, Crutches, etc.)? No PATIENT GENDER DATA: Female. status: : No status: NO. PATIENT RELEVANT IMPLANT DATA REVIEWED: Not Applicable RADIOLOGY DEPARTMENT: General X-ray: Exam(s) Completed: GI/ Procedure(s): Esophogram with barium contrast PERIPHERAL IV DATA: Not applicable SIGNED BY: RT Sherry(R) May 04, 2023 9:56 AM documented in this encounter [facility] 04-24-2023 Note HNO ID: [id number] Author: Laila Bryan RN Service: ? Author Type: Registered Nurse Type: Nursing Progress Note Filed: 04/24/2023 9:47 AM Note Text: Abdomen soft non-distended. Will continue to monitor. [facility] 04-24-2023 Nurse Note Abdomen soft non-distended. Will continue to monitor. documented in this encounter [facility] 04-24-2023 History and physical note UPDATED PROCEDURAL SEDATION HISTORY AND PHYSICAL EXAMINATION SERVICE DATE: 04/24/2023 SERVICE TIME: 8:53 PHYSICAL EXAM MUST BE COMPLETED ON ADMISSION PROCEDURE: esophagogastroduodenoscopy possible biposies Procedure Indications: abdominal bloating, heartburn The History and Physical (completed in the past 30 days) has been reviewed and the patient has been examined. The contents accurately reflect the patient's condition with the following additions or revisions since the H&P was completed. ASA Class: ASA Class:: Patient with mild systemic disease Examination indicates no changes. AIRWAY: Airway Visualization of Uvula: Yes Mouth opening greater than 2 fingerbreadths: Yes Neck Full Range of Motion: Yes LUNGS: Lungs clear to auscultation CARDIAC: Regular rhythm,Regular rate Provisional Diagnosis/Treatment Plan: EGD, possible biopsies SEDATION GOAL: Moderate This H&P can be found in the Electronic Medical Record . SIGNATURE: Cheryl Alfaro MD PATIENT NAME: Ko Bah DATE: April 24, 2023 TIME: 8:54 AM Source Note - Cheryl Alfaro MD - 04/24/2023 9:00 AM EDT Ko Bah is a 27 year old year old female w/ h/o bulimia who presents today for an evaluation of GERD. Symptoms: painful belching aggressive hiccups + dysphagia nearly every meal since January - steak, spaghetti noodles, protein bar, popcorn, nuts Daily heartburn in am., food sits in stomach Sx x 8 mo. Sometimes induces vomiting which brings relief (denies that this is a bulimia Sx) Omeprazole was helpful in past. Takes omeprazole in am, may eat a protein bar within the hour -or- may be 8 hours or more 'til eats. Feels as though there's a flap in throat that things get stuck under. 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 Patient evaluated at [facility] ED on 04/01 for complaint of nausea, vomiting, and hematemesis with dark blood. Denied abdominal pain, hematochezia, or melena. Workup in the ED showed VSS, normal abdominal exam. CBC, CMP, PT/INR and PTT were normal. Serum HCG negative. UA negative for infection or hematuria. Lipase normal. FOBT negative. Discharged home after GI cocktail and zofran. Given rx for zofran and Omeprazole. After discharge, patient did have a couple more episodes of vomiting that same day without hematemesis, but has resolved since. Nausea has improved gradually. Using zofran PRN which helps and has 6 tablets left. Does complain of heartburn and globus sensation. Taking Omeprazole 40 mg daily as previously prescribed by our office which helps somewhat with her heartburn/reflux. Admits to dysphagia and odynophagia without regurgitation. Denies fever/chills, early satiety, abdominal pain. 04/01/23 Miladis Nassar M.D. felt very nauseous when woke up. Vomited several times. Vomit was dark red blood with mucous. Reports she is no longer nauseous, but is having a hard time swallowing and feels like something is stuck in her throat. Reports she is having a hard time talking. Patient's words sound clear, but can hear voice a little shaky. Reports she does have a stomach ulcer. 01/28/23 Patient here in the office for nausea/vomiting in the morning. Has been on going for a year, has lost about 40 lbs. Refers that she has history of bulemia, spoke with psychiatry and no concerns for repeated thoughts or behavior related to that. Refers she is vomiting as soon as she wakes up, will be food that she ate at dinner. Will have a BM when first getting up in the morning, then vomit, and then another BM. Will wake up with dull abdominal pain. Negative test at home. No diarrhea, abnormal vaginal discharge, or urinary symptom. Symptoms last a couple of hours in the morning. Has seen GI in the past, refers symptoms are much worse now. 11/12/22 Miladis Nassar M.D. Patient complaining today of epigastric pain for the last week. Described as intermittent throbbing or sharp without radiation. Not treating with anything OTC for symptoms. Exacerbated with cough, sneeze, eating fatty foods or carbs. Admits to 3-4 episodes of watery/loose stools per day and heartburn/reflux. Noted she has had 25 lb weight loss since 08/2021. States she has lost this weight over the last 5-6 months by eating healthier diet. Also has history of bulimia and has been inducing vomiting about 3 times per week for the last 5-6 months. returning for follow up regarding multiple GI complaints. I saw the patient in consultation on 03/14/19. That note has been reviewed. RUQ US was ordered but we didn't set that up before the procedures. 04/18/19 Cynthia Guerrero Functional bowel disorder The patient was seen by Dr. Alfaro for upper endoscopy and colonoscopy, with MAC, 04/12/19. The procedure report has been reviewed and findings as follows: POSTOPERATIVE DIAGNOSIS: Hematochezia, altered bowel habits, nausea, postprandial right upper quadrant abdominal pain. Normal colonoscopy except for hemorrhoids and normal esophagogastroduodenoscopy except for very small hiatal hernia. FINAL DIAGNOSIS: A) SMALL INTESTINE, SECOND PORTION OF DUODENUM, BIOPSY - NO SIGNIFICANT HISTOPATHOLOGIC DIAGNOSIS. B) STOMACH, ANTRUM, BIOPSY - NO SIGNIFICANT HISTOPATHOLOGIC DIAGNOSIS. NO HISTOLOGIC FEATURES OF HELICOBACTER PYLORI IDENTIFIED BY ROUTINE STAIN. C) COLON, RECTUM, BIOPSIES - NO SIGNIFICANT HISTOPATHOLOGIC DIAGNOSIS. The patient presents today reporting that she is still having several bowel movements a day, the first being before eating. Also reporting the feeling of motion sickness. She tells me that she can't think or focus, she just feels sick. Taking famotidine for just a couple days, and not taking it routinely. I have recommended that she take it daily. Also recommended starting loperamide. Considered Symax, but she takes Cogentin, so it flags it. We discussed doing the US and she agrees. If this is negative we'll get a HIDA scan. The patient vapes. She has a cough. She tells me that it makes her dizzy. I have suggested that she go by to see about something for the cough. 03/14/19 Cynthia Guerrero N.P. Presents with RUQ pain, nausea and hematochezia. Patients states she is in a lot of pain immediately after meals. She has tried eating in small amount that seems to help a little bit. States sometimes when she eats, she literally burps for half an hour straight . She states she believe since taking gluten out of her diet, her issues are better, but still there, and she would like to get a scope done since it was suggested by Dr. Nassar about a year ago. She reports some occasional small amounts of blood in stools. Denies Weight loss, recent traveling fevers, chills, nausea, vomiting, constipation, hematochezia, melana, dysuria, hematuria, frequency or urgency. Positive for diarrhea a couple times a day.Just finished last menstrual period yesterday Ko Bah is a 23 year old female who presents today for an evaluation of abdominal pain and nausea. Onset about 3 years ago. She tells me that she was on omeprazole in the past for a couple months without seeing any improvement, so she stopped taking it but she hadn't been instructed how to take it directly. She tells me that her symptoms start about an hour after she has been up and around. She gets like motion sickness or car sick (but isn't in the car) and might actually vomit. She quit cannabis about 3 months ago. She vapes. No tobacco or gum. She tells me that she stopped eating gluten a year or more ago. She noted that a lot of things got better, but still having problems. Diet is also mostly lactose-free. Having a bowel movement 3-5 times a day, only while awake. The first bowel movement comes before any eating/drinking. Plan: RUQ US, Upper endoscopy and Colonoscopy. FAMILY HISTORY FAMILY HISTORY Problem Relation Age of Onset None Mother Psychiatry Mother bipolar other (endometriosis) Mother anxiety with OCPs/MARY Psychiatry Father anxiety Diabetes Father Psychiatry Sister bipolar Psychiatry Maternal Grandmother other (Liver Failure) Maternal Grandmother other (endometriosis) Sister Psychiatry Brother bipolar SOCIAL HISTORY Social History Tobacco Use Smoking status: Former Packs/day: 1.00 Years: 6.00 Additional pack years: 0.00 Total pack years: 6.00 Types: Cigarettes Quit date: 11/15/2016 Years since quittin.4 Smokeless tobacco: Current Tobacco comments: vape Substance Use Topics Alcohol use: Yes Comment: rarely PAST MEDICAL HISTORY PAST MEDICAL HISTORY Diagnosis Date Anxiety Bipolar disorder (HCC) counseling center Broken leg 08/2014 Left Leg Deliberate self-cutting history of Depression GERD (gastroesophageal reflux disease) History of bulimia Overweight (BMI 25.0-29.9) PAST SURGICAL HISTORY PAST SURGICAL HISTORY Procedure Laterality Date COLONOSCOPY FLX DX W/COLLJ SPEC WHEN PFRMD 04/12/2019 Colonoscopy ESOPHAGOGASTRODUODENOSCOPY TRANSORAL DIAGNOSTIC 04/12/2019 EGD PAST SURGICAL HISTORY OF 09/24 Left Knee, pins placed CURRENT MEDICATIONS Current Outpatient Medications Medication Sig sucralfate (CARAFATE) 1 gram tablet Take 1 tablet by mouth before meals and at bedtime. omeprazole (PRILOSEC) 40 mg capsule Take 1 capsule by mouth once daily. lamoTRIgine (LAMICTAL) 100 mg tablet Take 100 mg by mouth once daily. hydrOXYzine HCl (ATARAX) 50 mg tablet Take 50 mg by mouth three times daily as needed. ondansetron (ZOFRAN) 4 mg tablet Take 4 mg by mouth every 6 hours as needed. prazosin (MINIPRESS) 1 mg cap Take 1 mg by mouth daily at bedtime. traZODone (DESYREL) 50 mg tablet TAKE 1 & 1/2 (ONE & ONE-HALF) TABLETS BY MOUTH AT BEDTIME NEEDED FOR INSOMNIA Magnesium 30 mg tablet Take by mouth. multivit with iron,minerals (MULTIVITAMIN AND MINERALS ORAL) Take by mouth. benztropine (COGENTIN) 0.5 mg tablet Take 0.5 mg by mouth as needed. Patient reports once daily as needed Loperamide HCl (IMODIUM) 2 mg tab Take 1/2 to one full tablet each morning. (Patient not taking: Reported on 05/21/2021) fluticasone (FLOVENT HFA) 110 mcg/actuation inhaler Inhale 2 Puffs as instructed twice daily. (Patient not taking: Reported on 05/21/2021) FLUoxetine (PROZAC) 20 mg capsule Take 1 capsule by mouth once daily. (Patient not taking: Reported on 04/18/2019) ondansetron orally disintegrating (ZOFRAN ODT) 4 mg disintegrating tablet Take 1 tablet by mouth every 6 hours as needed for Nausea/Vomiting. (Patient not taking: Reported on 05/21/2021) No current facility-administered medications for this visit. ALLERGIES ALLERGIES Allergen Reactions Gluten Swelling, Vomiting Hydrocodone Vomiting Zoloft [Sertraline * GI Upset REVIEW OF SYSTEMS PAIN ASSESSMENT: Negative for pain, history of chronic pain, or current treatment for a chronic pain condition. GENERAL: No weight loss, malaise or fevers HEENT: Negative for frequent or significant headaches, No changes in hearing or vision, no nose bleeds or other nasal problems NECK: Negative for lumps, goiter, pain and significant neck swelling RESPIRATORY: Negative for cough, hemoptysis, wheezing, COPD, dyspnea or shortness of breath CARDIOVASCULAR: Negative for chest pain, leg swelling, hypertension, CHF or palpitations GI: See HPI : No history of dysuria, frequency or incontinence MUSCULOSKELETAL: Negative for joint pain or swelling, back pain or muscle pain SKIN: Negative for lesions, rash, and itching PHYSICAL EXAMINATION BP 115/67 (BP Site: Right Arm, BP Position: Sitting, BP Cuff Size: Regular Adult) Pulse 91 Temp 36.9 C (98.4 F) (Temporal) Ht 160 cm (5' 3 ) Wt 61.1 kg (134 lb 12.8 oz) LMP 04/02/2023 (Exact Date) SpO2 96% BMI 23.88 kg/m BP 115/67 (BP Site: Right Arm, BP Position: Sitting, BP Cuff Size: Regular Adult) Pulse 91 Temp 36.9 C (98.4 F) (Temporal) Ht 160 cm (5' 3 ) Wt 61.1 kg (134 lb 12.8 oz) LMP 04/02/2023 (Exact Date) SpO2 96% BMI 23.88 kg/m General appearance: alert, oriented x 3, pleasant and in no acute distress Skin: color, texture, turgor normal, no suspicious rashes or lesions Head: normocephalic, atraumatic Lungs: clear to auscultation. No wheezing, rhonchi, rales Heart: regular rate and rhythm, no murmurs or gallops Abdomen: soft, nontender, without organomegaly or masses. Extremities: no cyanosis or edema Gait: normal IMPRESSION: This is a 27 year old year old female presenting with problematic belching, aggressive hiccups, dysphagia, postprandial fullness & odd pharyngeal sensation as if there's a flap in throat that things get stuck under. ASSESSMENT/PLAN: 1. Abdominal pain, unspecified abdominal location - ICD9: 789.00, ICD10: R10.9 (primary diagnosis) 2. Gastroesophageal reflux disease, unspecified whether esophagitis present - ICD9: 530.81, ICD10: K21.9 EGD with H. pylori & celiac testing 3. Nausea and vomiting, unspecified vomiting type - ICD9: 787.01, ICD10: R11.2 4. Hematemesis with nausea - ICD9: 578.0, 787.02, ICD10: K92.0 5. Dysphagia, unspecified type - ICD9: 787.20, ICD10: R13.10 6. Odynophagia - ICD9: 787.20, ICD10: R13.10 XR ESOPHAGRAM - NM GASTRIC EMPTYING SOLID 7. Bloating - ICD9: 787.3, ICD10: R14.0 - BREATH TEST LACTOSE - BREATH TEST FRUCTOSE I have discussed the above with the patient. I have offered EGD, possible biopsies I have explained the procedure to the patient. I have counseled the patient as to the risks of the procedure, including but not limited to: infection, bleeding, injury to any intrabdominal organs such as liver/spleen, perforation of the GI tract, inability to complete the procedure, complications of anesthesia, etc. - the patient understands. The patient wishes to proceed. I have answered all questions to the patient s satisfaction and the patient has no further questions. . Ko Bah is a 27 year old year old female w/ h/o bulimia who presents today for an evaluation of GERD. Symptoms: painful belching aggressive hiccups + dysphagia nearly every meal since January - steak, spaghetti noodles, protein bar, popcorn, nuts Daily heartburn in am., food sits in stomach Sx x 8 mo. Sometimes induces vomiting which brings relief (denies that this is a bulimia Sx) Omeprazole was helpful in past. Takes omeprazole in am, may eat a protein bar within the hour -or- may be 8 hours or more 'til eats. Feels as though there's a flap in throat that things get stuck under. 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 Patient evaluated at [facility] ED on 04/01 for complaint of nausea, vomiting, and hematemesis with dark blood. Denied abdominal pain, hematochezia, or melena. Workup in the ED showed VSS, normal abdominal exam. CBC, CMP, PT/INR and PTT were normal. Serum HCG negative. UA negative for infection or hematuria. Lipase normal. FOBT negative. Discharged home after GI cocktail and zofran. Given rx for zofran and Omeprazole. After discharge, patient did have a couple more episodes of vomiting that same day without hematemesis, but has resolved since. Nausea has improved gradually. Using zofran PRN which helps and has 6 tablets left. Does complain of heartburn and globus sensation. Taking Omeprazole 40 mg daily as previously prescribed by our office which helps somewhat with her heartburn/reflux. Admits to dysphagia and odynophagia without regurgitation. Denies fever/chills, early satiety, abdominal pain. 04/01/23 Miladis Nassar M.D. felt very nauseous when woke up. Vomited several times. Vomit was dark red blood with mucous. Reports she is no longer nauseous, but is having a hard time swallowing and feels like something is stuck in her throat. Reports she is having a hard time talking. Patient's words sound clear, but can hear voice a little shaky. Reports she does have a stomach ulcer. 01/28/23 Patient here in the office for nausea/vomiting in the morning. Has been on going for a year, has lost about 40 lbs. Refers that she has history of bulemia, spoke with psychiatry and no concerns for repeated thoughts or behavior related to that. Refers she is vomiting as soon as she wakes up, will be food that she ate at dinner. Will have a BM when first getting up in the morning, then vomit, and then another BM. Will wake up with dull abdominal pain. Negative test at home. No diarrhea, abnormal vaginal discharge, or urinary symptom. Symptoms last a couple of hours in the morning. Has seen GI in the past, refers symptoms are much worse now. 11/12/22 Miladis Nassar M.D. Patient complaining today of epigastric pain for the last week. Described as intermittent throbbing or sharp without radiation. Not treating with anything OTC for symptoms. Exacerbated with cough, sneeze, eating fatty foods or carbs. Admits to 3-4 episodes of watery/loose stools per day and heartburn/reflux. Noted she has had 25 lb weight loss since 08/2021. States she has lost this weight over the last 5-6 months by eating healthier diet. Also has history of bulimia and has been inducing vomiting about 3 times per week for the last 5-6 months. returning for follow up regarding multiple GI complaints. I saw the patient in consultation on 03/14/19. That note has been reviewed. RUQ US was ordered but we didn't set that up before the procedures. 04/18/19 Cynthia Guerrero Functional bowel disorder The patient was seen by Dr. Alfaro for upper endoscopy and colonoscopy, with MAC, 04/12/19. The procedure report has been reviewed and findings as follows: POSTOPERATIVE DIAGNOSIS: Hematochezia, altered bowel habits, nausea, postprandial right upper quadrant abdominal pain. Normal colonoscopy except for hemorrhoids and normal esophagogastroduodenoscopy except for very small hiatal hernia. FINAL DIAGNOSIS: A) SMALL INTESTINE, SECOND PORTION OF DUODENUM, BIOPSY - NO SIGNIFICANT HISTOPATHOLOGIC DIAGNOSIS. B) STOMACH, ANTRUM, BIOPSY - NO SIGNIFICANT HISTOPATHOLOGIC DIAGNOSIS. NO HISTOLOGIC FEATURES OF HELICOBACTER PYLORI IDENTIFIED BY ROUTINE STAIN. C) COLON, RECTUM, BIOPSIES - NO SIGNIFICANT HISTOPATHOLOGIC DIAGNOSIS. The patient presents today reporting that she is still having several bowel movements a day, the first being before eating. Also reporting the feeling of motion sickness. She tells me that she can't think or focus, she just feels sick. Taking famotidine for just a couple days, and not taking it routinely. I have recommended that she take it daily. Also recommended starting loperamide. Considered Symax, but she takes Cogentin, so it flags it. We discussed doing the US and she agrees. If this is negative we'll get a HIDA scan. The patient vapes. She has a cough. She tells me that it makes her dizzy. I have suggested that she go by to see about something for the cough. 03/14/19 Cynthia Guerrero N.P. Presents with RUQ pain, nausea and hematochezia. Patients states she is in a lot of pain immediately after meals. She has tried eating in small amount that seems to help a little bit. States sometimes when she eats, she literally burps for half an hour straight . She states she believe since taking gluten out of her diet, her issues are better, but still there, and she would like to get a scope done since it was suggested by Dr. Nassar about a year ago. She reports some occasional small amounts of blood in stools. Denies Weight loss, recent traveling fevers, chills, nausea, vomiting, constipation, hematochezia, melana, dysuria, hematuria, frequency or urgency. Positive for diarrhea a couple times a day.Just finished last menstrual period yesterday Ko Bah is a 23 year old female who presents today for an evaluation of abdominal pain and nausea. Onset about 3 years ago. She tells me that she was on omeprazole in the past for a couple months without seeing any improvement, so she stopped taking it but she hadn't been instructed how to take it directly. She tells me that her symptoms start about an hour after she has been up and around. She gets like motion sickness or car sick (but isn't in the car) and might actually vomit. She quit cannabis about 3 months ago. She vapes. No tobacco or gum. She tells me that she stopped eating gluten a year or more ago. She noted that a lot of things got better, but still having problems. Diet is also mostly lactose-free. Having a bowel movement 3-5 times a day, only while awake. The first bowel movement comes before any eating/drinking. Plan: RUQ US, Upper endoscopy and Colonoscopy. FAMILY HISTORY FAMILY HISTORY Problem Relation Age of Onset None Mother Psychiatry Mother bipolar other (endometriosis) Mother anxiety with OCPs/MARY Psychiatry Father anxiety Diabetes Father Psychiatry Sister bipolar Psychiatry Maternal Grandmother other (Liver Failure) Maternal Grandmother other (endometriosis) Sister Psychiatry Brother bipolar SOCIAL HISTORY Social History Tobacco Use Smoking status: Former Packs/day: 1.00 Years: 6.00 Additional pack years: 0.00 Total pack years: 6.00 Types: Cigarettes Quit date: 11/15/2016 Years since quittin.4 Smokeless tobacco: Current Tobacco comments: vape Substance Use Topics Alcohol use: Yes Comment: rarely PAST MEDICAL HISTORY PAST MEDICAL HISTORY Diagnosis Date Anxiety Bipolar disorder (HCC) counseling center Broken leg 08/2014 Left Leg Deliberate self-cutting history of Depression GERD (gastroesophageal reflux disease) History of bulimia Overweight (BMI 25.0-29.9) PAST SURGICAL HISTORY PAST SURGICAL HISTORY Procedure Laterality Date COLONOSCOPY FLX DX W/COLLJ SPEC WHEN PFRMD 04/12/2019 Colonoscopy ESOPHAGOGASTRODUODENOSCOPY TRANSORAL DIAGNOSTIC 04/12/2019 EGD PAST SURGICAL HISTORY OF 09/24 Left Knee, pins placed CURRENT MEDICATIONS Current Outpatient Medications Medication Sig sucralfate (CARAFATE) 1 gram tablet Take 1 tablet by mouth before meals and at bedtime. omeprazole (PRILOSEC) 40 mg capsule Take 1 capsule by mouth once daily. lamoTRIgine (LAMICTAL) 100 mg tablet Take 100 mg by mouth once daily. hydrOXYzine HCl (ATARAX) 50 mg tablet Take 50 mg by mouth three times daily as needed. ondansetron (ZOFRAN) 4 mg tablet Take 4 mg by mouth every 6 hours as needed. prazosin (MINIPRESS) 1 mg cap Take 1 mg by mouth daily at bedtime. traZODone (DESYREL) 50 mg tablet TAKE 1 & 1/2 (ONE & ONE-HALF) TABLETS BY MOUTH AT BEDTIME NEEDED FOR INSOMNIA Magnesium 30 mg tablet Take by mouth. multivit with iron,minerals (MULTIVITAMIN AND MINERALS ORAL) Take by mouth. benztropine (COGENTIN) 0.5 mg tablet Take 0.5 mg by mouth as needed. Patient reports once daily as needed Loperamide HCl (IMODIUM) 2 mg tab Take 1/2 to one full tablet each morning. (Patient not taking: Reported on 05/21/2021) fluticasone (FLOVENT HFA) 110 mcg/actuation inhaler Inhale 2 Puffs as instructed twice daily. (Patient not taking: Reported on 05/21/2021) FLUoxetine (PROZAC) 20 mg capsule Take 1 capsule by mouth once daily. (Patient not taking: Reported on 04/18/2019) ondansetron orally disintegrating (ZOFRAN ODT) 4 mg disintegrating tablet Take 1 tablet by mouth every 6 hours as needed for Nausea/Vomiting. (Patient not taking: Reported on 05/21/2021) No current facility-administered medications for this visit. ALLERGIES ALLERGIES Allergen Reactions Gluten Swelling, Vomiting Hydrocodone Vomiting Zoloft [Sertraline * GI Upset REVIEW OF SYSTEMS PAIN ASSESSMENT: Negative for pain, history of chronic pain, or current treatment for a chronic pain condition. GENERAL: No weight loss, malaise or fevers HEENT: Negative for frequent or significant headaches, No changes in hearing or vision, no nose bleeds or other nasal problems NECK: Negative for lumps, goiter, pain and significant neck swelling RESPIRATORY: Negative for cough, hemoptysis, wheezing, COPD, dyspnea or shortness of breath CARDIOVASCULAR: Negative for chest pain, leg swelling, hypertension, CHF or palpitations GI: See HPI : No history of dysuria, frequency or incontinence MUSCULOSKELETAL: Negative for joint pain or swelling, back pain or muscle pain SKIN: Negative for lesions, rash, and itching PHYSICAL EXAMINATION BP 115/67 (BP Site: Right Arm, BP Position: Sitting, BP Cuff Size: Regular Adult) Pulse 91 Temp 36.9 C (98.4 F) (Temporal) Ht 160 cm (5' 3 ) Wt 61.1 kg (134 lb 12.8 oz) LMP 04/02/2023 (Exact Date) SpO2 96% BMI 23.88 kg/m BP 115/67 (BP Site: Right Arm, BP Position: Sitting, BP Cuff Size: Regular Adult) Pulse 91 Temp 36.9 C (98.4 F) (Temporal) Ht 160 cm (5' 3 ) Wt 61.1 kg (134 lb 12.8 oz) LMP 04/02/2023 (Exact Date) SpO2 96% BMI 23.88 kg/m General appearance: alert, oriented x 3, pleasant and in no acute distress Skin: color, texture, turgor normal, no suspicious rashes or lesions Head: normocephalic, atraumatic Lungs: clear to auscultation. No wheezing, rhonchi, rales Heart: regular rate and rhythm, no murmurs or gallops Abdomen: soft, nontender, without organomegaly or masses. Extremities: no cyanosis or edema Gait: normal IMPRESSION: This is a 27 year old year old female presenting with problematic belching, aggressive hiccups, dysphagia, postprandial fullness & odd pharyngeal sensation as if there's a flap in throat that things get stuck under. ASSESSMENT/PLAN: 1. Abdominal pain, unspecified abdominal location - ICD9: 789.00, ICD10: R10.9 (primary diagnosis) 2. Gastroesophageal reflux disease, unspecified whether esophagitis present - ICD9: 530.81, ICD10: K21.9 EGD with H. pylori & celiac testing 3. Nausea and vomiting, unspecified vomiting type - ICD9: 787.01, ICD10: R11.2 4. Hematemesis with nausea - ICD9: 578.0, 787.02, ICD10: K92.0 5. Dysphagia, unspecified type - ICD9: 787.20, ICD10: R13.10 6. Odynophagia - ICD9: 787.20, ICD10: R13.10 XR ESOPHAGRAM - NM GASTRIC EMPTYING SOLID 7. Bloating - ICD9: 787.3, ICD10: R14.0 - BREATH TEST LACTOSE - BREATH TEST FRUCTOSE I have discussed the above with the patient. I have offered EGD, possible biopsies I have explained the procedure to the patient. I have counseled the patient as to the risks of the procedure, including but not limited to: infection, bleeding, injury to any intrabdominal organs such as liver/spleen, perforation of the GI tract, inability to complete the procedure, complications of anesthesia, etc. - the patient understands. The patient wishes to proceed. I have answered all questions to the patient s satisfaction and the patient has no further questions. . documented in this encounter [facility] 04-16-2023 Note HNO ID: [id number] Author: Antonio Gayle PA-C Service: ? Author Type: Physician Facilitator Type: Progress Notes Filed: 04/23/2023 10:46 PM Note Text: DEPARTMENT OF GASTROENTEROLOGY NEW PATIENT/CONSULT GI MOTILITY REASON FOR VISIT Ko Bah is a 27 year old year old female who is scheduled for evaluation of GERD. My final recommendations will be communicated back to the requesting physician by the way of the shared medical record, fax, or via US Mail. HISTORY OF PRESENT ILLNESS Ko Bah is a 27 year old year old female w/ h/o bulimia who presents today for an evaluation of GERD. Symptoms: painful belching aggressive hiccups + dysphagia nearly every meal since January - steak, spaghetti noodles, protein bar, popcorn, nuts Daily heartburn in am., food sits in stomach Sx x 8 mo. Sometimes induces vomiting which brings relief (denies that this is a bulimia Sx) Omeprazole was helpful in past. Takes omeprazole in am, may eat a protein bar within the hour -or- may be 8 hours or more 'til eats. Feels as though there's a flap in throat that things get stuck under. 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 Patient evaluated at [facility] ED on 04/01 for complaint of nausea, vomiting, and hematemesis with dark blood. Denied abdominal pain, hematochezia, or melena. Workup in the ED showed VSS, normal abdominal exam. CBC, CMP, PT/INR and PTT were normal. Serum HCG negative. UA negative for infection or hematuria. Lipase normal. FOBT negative. Discharged home after GI cocktail and zofran. Given rx for zofran and Omeprazole. After discharge, patient did have a couple more episodes of vomiting that same day without hematemesis, but has resolved since. Nausea has improved gradually. Using zofran PRN which helps and has 6 tablets left. Does complain of heartburn and globus sensation. Taking Omeprazole 40 mg daily as previously prescribed by our office which helps somewhat with her heartburn/reflux. Admits to dysphagia and odynophagia without regurgitation. Denies fever/chills, early satiety, abdominal pain. 04/01/23 Miladis Nassar M.D. felt very nauseous when woke up. Vomited several times. Vomit was dark red blood with mucous. Reports she is no longer nauseous, but is having a hard time swallowing and feels like something is stuck in her throat. Reports she is having a hard time talking. Patient's words sound clear, but can hear voice a little shaky. Reports she does have a stomach ulcer. 01/28/23 Patient here in the office for nausea/vomiting in the morning. Has been on going for a year, has lost about 40 lbs. Refers that she has history of bulemia, spoke with psychiatry and no concerns for repeated thoughts or behavior related to that. Refers she is vomiting as soon as she wakes up, will be food that she ate at dinner. Will have a BM when first getting up in the morning, then vomit, and then another BM. Will wake up with dull abdominal pain. Negative test at home. No diarrhea, abnormal vaginal discharge, or urinary symptom. Symptoms last a couple of hours in the morning. Has seen GI in the past, refers symptoms are much worse now. 11/12/22 Miladis Nassar M.D. Patient complaining today of epigastric pain for the last week. Described as intermittent throbbing or sharp without radiation. Not treating with anything OTC for symptoms. Exacerbated with cough, sneeze, eating fatty foods or carbs. Admits to 3-4 episodes of watery/loose stools per day and heartburn/reflux. Noted she has had 25 lb weight loss since 08/2021. States she has lost this weight over the last 5-6 months by eating healthier diet. Also has history of bulimia and has been inducing vomiting about 3 times per week for the last 5-6 months. returning for follow up regarding multiple GI complaints. I saw the patient in consultation on 03/14/19. That note has been reviewed. RUQ US was ordered but we didn't set that up before the procedures. 04/18/19 Cynthia Guerrero Functional bowel disorder The patient was seen by Dr. Alfaro for upper endoscopy and colonoscopy, with MAC, 04/12/19. The procedure report has been reviewed and findings as follows: POSTOPERATIVE DIAGNOSIS: Hematochezia, altered bowel habits, nausea, postprandial right upper quadrant abdominal pain. Normal colonoscopy except for hemorrhoids and normal esophagogastroduodenoscopy except for very small hiatal hernia. FINAL DIAGNOSIS: A) SMALL INTESTINE, SECOND PORTION OF DUODENUM, BIOPSY - NO SIGNIFICANT HISTOPATHOLOGIC DIAGNOSIS. B) STOMACH, ANTRUM, BIOPSY - NO SIGNIFICANT HISTOPATHOLOGIC DIAGNOSIS. NO HISTOLOGIC FEATURES OF HELICOBACTER PYLORI IDENTIFIED BY ROUTINE STAIN. C) COLON, RECTUM, BIOPSIES - NO SIGNIFICANT HISTOPATHOLOGIC DIAGNOSIS. The patient presents today reporting that she is still havi (more content not included)... [facility] 04-16-2023 History of Present illness Narrative DEPARTMENT OF GASTROENTEROLOGY NEW PATIENT/CONSULT GI MOTILITY REASON FOR VISIT Ko Bah is a 27 year old year old female who is scheduled for evaluation of GERD. My final recommendations will be communicated back to the requesting physician by the way of the shared medical record, fax, or via US Mail. HISTORY OF PRESENT ILLNESS Ko Bah is a 27 year old year old female w/ h/o bulimia who presents today for an evaluation of GERD. Symptoms: painful belching aggressive hiccups + dysphagia nearly every meal since January - steak, spaghetti noodles, protein bar, popcorn, nuts Daily heartburn in am., food sits in stomach Sx x 8 mo. Sometimes induces vomiting which brings relief (denies that this is a bulimia Sx) Omeprazole was helpful in past. Takes omeprazole in am, may eat a protein bar within the hour -or- may be 8 hours or more 'til eats. Feels as though there's a flap in throat that things get stuck under. 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 Patient evaluated at [facility] ED on 04/01 for complaint of nausea, vomiting, and hematemesis with dark blood. Denied abdominal pain, hematochezia, or melena. Workup in the ED showed VSS, normal abdominal exam. CBC, CMP, PT/INR and PTT were normal. Serum HCG negative. UA negative for infection or hematuria. Lipase normal. FOBT negative. Discharged home after GI cocktail and zofran. Given rx for zofran and Omeprazole. After discharge, patient did have a couple more episodes of vomiting that same day without hematemesis, but has resolved since. Nausea has improved gradually. Using zofran PRN which helps and has 6 tablets left. Does complain of heartburn and globus sensation. Taking Omeprazole 40 mg daily as previously prescribed by our office which helps somewhat with her heartburn/reflux. Admits to dysphagia and odynophagia without regurgitation. Denies fever/chills, early satiety, abdominal pain. 04/01/23 Miladis Nassar M.D. felt very nauseous when woke up. Vomited several times. Vomit was dark red blood with mucous. Reports she is no longer nauseous, but is having a hard time swallowing and feels like something is stuck in her throat. Reports she is having a hard time talking. Patient's words sound clear, but can hear voice a little shaky. Reports she does have a stomach ulcer. 01/28/23 Patient here in the office for nausea/vomiting in the morning. Has been on going for a year, has lost about 40 lbs. Refers that she has history of bulemia, spoke with psychiatry and no concerns for repeated thoughts or behavior related to that. Refers she is vomiting as soon as she wakes up, will be food that she ate at dinner. Will have a BM when first getting up in the morning, then vomit, and then another BM. Will wake up with dull abdominal pain. Negative test at home. No diarrhea, abnormal vaginal discharge, or urinary symptom. Symptoms last a couple of hours in the morning. Has seen GI in the past, refers symptoms are much worse now. 11/12/22 Miladis Nassar M.D. Patient complaining today of epigastric pain for the last week. Described as intermittent throbbing or sharp without radiation. Not treating with anything OTC for symptoms. Exacerbated with cough, sneeze, eating fatty foods or carbs. Admits to 3-4 episodes of watery/loose stools per day and heartburn/reflux. Noted she has had 25 lb weight loss since 08/2021. States she has lost this weight over the last 5-6 months by eating healthier diet. Also has history of bulimia and has been inducing vomiting about 3 times per week for the last 5-6 months. returning for follow up regarding multiple GI complaints. I saw the patient in consultation on 03/14/19. That note has been reviewed. RUQ US was ordered but we didn't set that up before the procedures. 04/18/19 Cynthia Guerrero Functional bowel disorder The patient was seen by Dr. Alfaro for upper endoscopy and colonoscopy, with MAC, 04/12/19. The procedure report has been reviewed and findings as follows: POSTOPERATIVE DIAGNOSIS: Hematochezia, altered bowel habits, nausea, postprandial right upper quadrant abdominal pain. Normal colonoscopy except for hemorrhoids and normal esophagogastroduodenoscopy except for very small hiatal hernia. FINAL DIAGNOSIS: A) SMALL INTESTINE, SECOND PORTION OF DUODENUM, BIOPSY - NO SIGNIFICANT HISTOPATHOLOGIC DIAGNOSIS. B) STOMACH, ANTRUM, BIOPSY - NO SIGNIFICANT HISTOPATHOLOGIC DIAGNOSIS. NO HISTOLOGIC FEATURES OF HELICOBACTER PYLORI IDENTIFIED BY ROUTINE STAIN. C) COLON, RECTUM, BIOPSIES - NO SIGNIFICANT HISTOPATHOLOGIC DIAGNOSIS. The patient presents today reporting that she is still having several bowel movements a day, the first being before eating. Also reporting the feeling of motion sickness. She tells me that she can't think or focus, she just feels sick. Taking famotidine for just a couple days, and not taking it routinely. I have recommended that she take it daily. Also recommended starting loperamide. Considered Symax, but she takes Cogentin, so it flags it. We discussed doing the US and she agrees. If this is negative we'll get a HIDA scan. The patient vapes. She has a cough. She tells me that it makes her dizzy. I have suggested that she go by UC to see about something for the cough. 03/14/19 Cynthia Guerrero N.P. Presents with RUQ pain, nausea and hematochezia. Patients states she is in a lot of pain immediately after meals. She has tried eating in small amount that seems to help a little bit. States sometimes when she eats, she literally burps for half an hour straight . She states she believe since taking gluten out of her diet, her issues are better, but still there, and she would like to get a scope done since it was suggested by Dr. Nassar about a year ago. She reports some occasional small amounts of blood in stools. Denies Weight loss, recent traveling fevers, chills, nausea, vomiting, constipation, hematochezia, melana, dysuria, hematuria, frequency or urgency. Positive for diarrhea a couple times a day.Just finished last menstrual period yesterday Ko Bah is a 23 year old female who presents today for an evaluation of abdominal pain and nausea. Onset about 3 years ago. She tells me that she was on omeprazole in the past for a couple months without seeing any improvement, so she stopped taking it but she hadn't been instructed how to take it directly. She tells me that her symptoms start about an hour after she has been up and around. She gets like motion sickness or car sick (but isn't in the car) and might actually vomit. She quit cannabis about 3 months ago. She vapes. No tobacco or gum. She tells me that she stopped eating gluten a year or more ago. She noted that a lot of things got better, but still having problems. Diet is also mostly lactose-free. Having a bowel movement 3-5 times a day, only while awake. The first bowel movement comes before any eating/drinking. Plan: RUQ US, Upper endoscopy and Colonoscopy. FAMILY HISTORY Problem Relation Age of Onset None Mother Psychiatry Mother bipolar other (endometriosis) Mother anxiety with OCPs/MARY Psychiatry Father anxiety Diabetes Father Psychiatry Sister bipolar Psychiatry Maternal Grandmother other (Liver Failure) Maternal Grandmother other (endometriosis) Sister Psychiatry Brother bipolar RECENT LABS Glucose 106 01/28/2023 BUN 12 01/28/2023 Creatinine 0.93 01/28/2023 Sodium 139 01/28/2023 Potassium 4.4 01/28/2023 Chloride 104 01/28/2023 CO2 27 01/28/2023 Protein, Total 7.5 01/28/2023 Albumin 4.6 01/28/2023 Calcium 9.4 01/28/2023 Alkaline Phosphatase 62 01/28/2023 Bilirubin, Total 0.4 01/28/2023 AST 11 01/28/2023 ALT 11 01/28/2023 Hemoglobin (g/dL) Date Value 01/28/2023 13.4 02/18/2019 13.0 Hematocrit (%) Date Value 01/28/2023 39.5 02/18/2019 37.6 WBC (k/uL) Date Value 01/28/2023 9.10 02/18/2019 8.79 Platelet Count (k/uL) Date Value 01/28/2023 284 02/18/2019 317 MCV (fL) Date Value 01/28/2023 94.5 02/18/2019 95.2 Social History Tobacco Use Smoking status: Former Packs/day: 1.00 Years: 6.00 Additional pack years: 0.00 Total pack years: 6.00 Types: Cigarettes Quit date: 11/15/2016 Years since quittin.4 Smokeless tobacco: Current Tobacco comments: vape Substance Use Topics Alcohol use: Yes Comment: rarely PAST MEDICAL HISTORY Diagnosis Date Anxiety Bipolar disorder (H[facility]) counseling center Broken leg 08/2014 Left Leg Deliberate self-cutting history of Depression GERD (gastroesophageal reflux disease) History of bulimia Overweight (BMI 25.0-29.9) PAST SURGICAL HISTORY Procedure Laterality Date COLONOSCOPY FLX DX W/COLLJ SPEC WHEN PFRMD 04/12/2019 Colonoscopy ESOPHAGOGASTRODUODENOSCOPY TRANSORAL DIAGNOSTIC 04/12/2019 EGD PAST SURGICAL HISTORY OF 09/24 Left Knee, pins placed Current Outpatient Medications Medication Sig sucralfate (CARAFATE) 1 gram tablet Take 1 tablet by mouth before meals and at bedtime. omeprazole (PRILOSEC) 40 mg capsule Take 1 capsule by mouth once daily. lamoTRIgine (LAMICTAL) 100 mg tablet Take 100 mg by mouth once daily. hydrOXYzine HCl (ATARAX) 50 mg tablet Take 50 mg by mouth three times daily as needed. ondansetron (ZOFRAN) 4 mg tablet Take 4 mg by mouth every 6 hours as needed. prazosin (MINIPRESS) 1 mg cap Take 1 mg by mouth daily at bedtime. traZODone (DESYREL) 50 mg tablet TAKE 1 & 1/2 (ONE & ONE-HALF) TABLETS BY MOUTH AT BEDTIME NEEDED FOR INSOMNIA Magnesium 30 mg tablet Take by mouth. multivit with iron,minerals (MULTIVITAMIN AND MINERALS ORAL) Take by mouth. benztropine (COGENTIN) 0.5 mg tablet Take 0.5 mg by mouth as needed. Patient reports once daily as needed Loperamide HCl (IMODIUM) 2 mg tab Take 1/2 to one full tablet each morning. (Patient not taking: Reported on 05/21/2021) fluticasone (FLOVENT HFA) 110 mcg/actuation inhaler Inhale 2 Puffs as instructed twice daily. (Patient not taking: Reported on 05/21/2021) FLUoxetine (PROZAC) 20 mg capsule Take 1 capsule by mouth once daily. (Patient not taking: Reported on 04/18/2019) ondansetron orally disintegrating (ZOFRAN ODT) 4 mg disintegrating tablet Take 1 tablet by mouth every 6 hours as needed for Nausea/Vomiting. (Patient not taking: Reported on 05/21/2021) No current facility-administered medications for this visit. ALLERGIES Allergen Reactions Gluten Swelling, Vomiting Hydrocodone Vomiting Zoloft [Sertraline * GI Upset REVIEW OF SYSTEMS PAIN ASSESSMENT: Negative for pain, history of chronic pain, or current treatment for a chronic pain condition. GENERAL: No weight loss, malaise or fevers HEENT: Negative for frequent or significant headaches, No changes in hearing or vision, no nose bleeds or other nasal problems NECK: Negative for lumps, goiter, pain and significant neck swelling RESPIRATORY: Negative for cough, hemoptysis, wheezing, COPD, dyspnea or shortness of breath CARDIOVASCULAR: Negative for chest pain, leg swelling, hypertension, CHF or palpitations GI: See HPI : No history of dysuria, frequency or incontinence MUSCULOSKELETAL: Negative for joint pain or swelling, back pain or muscle pain SKIN: Negative for lesions, rash, and itching PHYSICAL EXAMINATION BP 115/67 (BP Site: Right Arm, BP Position: Sitting, BP Cuff Size: Regular Adult) Pulse 91 Temp 36.9 C (98.4 F) (Temporal) Ht 160 cm (5' 3 ) Wt 61.1 kg (134 lb 12.8 oz) LMP 04/02/2023 (Exact Date) SpO2 96% BMI 23.88 kg/m BP 115/67 (BP Site: Right Arm, BP Position: Sitting, BP Cuff Size: Regular Adult) Pulse 91 Temp 36.9 C (98.4 F) (Temporal) Ht 160 cm (5' 3 ) Wt 61.1 kg (134 lb 12.8 oz) LMP 04/02/2023 (Exact Date) SpO2 96% BMI 23.88 kg/m General appearance: alert, oriented x 3, pleasant and in no acute distress Skin: color, texture, turgor normal, no suspicious rashes or lesions Head: normocephalic, atraumatic Lungs: clear to auscultation. No wheezing, rhonchi, rales Heart: regular rate and rhythm, no murmurs or gallops Abdomen: soft, nontender, without organomegaly or masses. Extremities: no cyanosis or edema Gait: normal Assessment IMPRESSION: This is a 27 year old year old female presenting with problematic belching, aggressive hiccups, dysphagia, postprandial fullness & odd pharyngeal sensation as if there's a flap in throat that things get stuck under. ASSESSMENT/PLAN: 1. Abdominal pain, unspecified abdominal location - ICD9: 789.00, ICD10: R10.9 (primary diagnosis) 2. Gastroesophageal reflux disease, unspecified whether esophagitis present - ICD9: 530.81, ICD10: K21.9 EGD with H. pylori & celiac testing 3. Nausea and vomiting, unspecified vomiting type - ICD9: 787.01, ICD10: R11.2 4. Hematemesis with nausea - ICD9: 578.0, 787.02, ICD10: K92.0 5. Dysphagia, unspecified type - ICD9: 787.20, ICD10: R13.10 6. Odynophagia - ICD9: 787.20, ICD10: R13.10 XR ESOPHAGRAM - NM GASTRIC EMPTYING SOLID 7. Bloating - ICD9: 787.3, ICD10: R14.0 - BREATH TEST LACTOSE - BREATH TEST FRUCTOSE I spent a total of 60 minutes minutes on the date of the service which included preparing to see the patient, [id number] patient care, completing clinical documentation, obtaining and/or reviewing separately obtained history, performing a medically appropriate examination, counseling and educating the patient/family/caregiver, ordering medications, tests, or procedures, communicating results to the patient/family/caregiver, and care coordination (not separately reported). Antonio Gayle PA-C Neurogastroenterology Section Department of Gastroenterology April 07, 2023 documented in this encounter [facility] 04-07-2023 Instructions Antonio Gayle PA-C - 04/07/2023 3:49 PM EDT Images from the original note were not included. Plan: breath test fructose breath test lactose esophagram H. pylori & celiac EGD follow-up mark't several weeks after tests completed Nutrition Guidelines for the Treatment of Gastroesophageal Reflux Gastroesophageal reflux disease, or GERD, occurs when the lower esophageal sphincter (LES) does not close properly and stomach contents leak back into the esophagus. The LES is a ring-like muscle at the bottom of the esophagus that acts like a valve between the esophagus and stomach. Heartburn occurs when refluxed stomach acid touches the lining of the esophagus, causing a burning sensation in the chest. Heartburn that occurs more than two times a week may be considered GERD, and it can eventually lead to more serious health problems. The purpose of this diet is to reduce the reflux of stomach fluid into the esophagus and to avoid foods that irritate the esophageal mucosa. It may be necessary to lose weight, since excess weight increases stomach pressure. Avoid the following foods: Caffeine (regular coffee, regular tea, chocolate) [place] fruits/juices Carbonated beverages Alcohol Mints (peppermint, spearmint) Tomato products Fried, greasy foods Spicy foods Garlic and onions Special instructions: Eat small, frequent meals. Large meals may increase stomach pressure, and therefore reflux. Fat takes the longest time to leave the stomach; therefore, reduce the total amount of fat that you eat at a meal by decreasing the amount of margarine, butter, oils, salad dressings, gravy, fatty meats, and full-fat dairy/milk products such as sour cream, cheese, and whole milk. Maintain an upright posture while eating and for 45-60 minutes afterward. Avoid eating 2-3 hours before bedtime. Avoid clothing that is tight in the abdominal area. Achieve and maintain a healthy weight. When sleeping, raise the head of the bed 6-8 inches, using wooden blocks under the bedposts. Extra pillows will not work. Stop smoking. Dietary Guidelines for GERD Diet The following table can help you choose foods that will reduce stomach reflux. Your individual tolerances may differ. Food groups Tolerated Not tolerated Milk and milk products Fat-free, low-fat, and reduced-fat milk, low-fat buttermilk, low-fat or fat-free yogurt, soy milk Whole milk, chocolate milk, chocolate shakes or drinks, milkshakes, whole milk fat yogurt Breads and cereals Plain (with or without whole grain flour) bread, cereals, rolls, and crackers, pancakes, waffles, muffins made with low-fat ingredients, bagels, corn tortillas Breads and cereals prepared with high-fat ingredients such as croissants, biscuits, doughnuts, sweet rolls, muffins, granola, pizza, Turkish toast Desserts Evelio food cake, sponge cake, low-fat cookies, gelatin, fruit-based desserts, sherbet, fruit ice, reduced-fat ice cream, pudding or custard made with 1% or 2% low-fat milk, fat-free pudding All other pies, cookies, and cakes, ice cream, any desserts containing chocolate frosting, whole milk pudding, pastries Fats Nonfat or low-fat dressings and mayonnaise, non- fat liquid or powdered cream substitutes, fat-free or reduced-fat sour cream and cream cheese, low-fat butter and margarine substitutes, vegetable oils< 8 tsp Gravies, heavy cream, oliva, meat drip- pings, butter, margarine, vegetable oils, regular sour cream, cream cheeses, nuts, olives, avocados/guacamole, nut butters, vegetable oils >8 tsp Fruits Fresh, frozen, and canned fruits as tolerated, juices (any except those in the right column) [place], lemon, orutsararmiut, tangerine, pineapple, grapefruit Meats and meat substitutes Well-cooked lean meat, poultry (without skin), fish (fresh or water-packed), lean pork, shellfish, non- fat/low-fat yogurt, low-fat luncheon meats and cheeses, low-fat hot dogs, tofu, dried beans and peas (includes fat-free refried beans), eggs Fried meat, poultry, fish, or eggs, regular luncheon meats, hot dogs, sausages, refried beans Potatoes and potato substitutes Baked, boiled, and mashed potatoes without added fat, plain pasta, pasta with low-fat cream sauce, rice Turkish-fried potatoes, risotto, potato chips, pastas served with cream sauces and tomato-based sauces Soups Fat-free broths, homemade soups made with lean meat and vegetables (except tomatoes) and fat-free or low-fat milk Regular cream and tomato-based soups Sweets Sugar, honey, jam, jelly, molasses, maple syrup, hard candy, marshmallows Coconut, cream-filled candies, nuts, chocolate, spearmint, peppermint Vegetables Plain fresh, frozen, and canned vegetables prepared without added fat Fried or creamed vegetables, tomatoes and tomato products, onions, vegetable juices Miscellaneous Salt, oregano, chiquis, pepper, other spices and herbs (as tolerated), decaffeinated coffee, decaffeinated tea, non-mint tea Spices and herbs in tomato-based sauces, chili and jalapeno peppers, vinegar, carbonated beverages, caffeinated or mint-flavored coffee and/or teas, alcoholic beverages Copyright 3790-2330 [facility]. All rights reserved. This information is provided by the [facility] and is not intended to replace the medical advice of your doctor or health care provider. Please consult your health care provider for advice about a specific medical condition. For additional health information, please contact the Center for Consumer Health Information at the [facility] or toll-free extension [phone]. If you prefer, you may visit [email or web address] or [email or web address]. This document was last reviewed on: 2018 index#08010 Discussed the etiology of GERD with patient. Encouraged lifestyle changes and the need for a lifelong regimen of medications to help reduce symptoms. Discussed the potential for serious complications if symptoms are not resolved. Discussed raising the head of the bed 4 to 6 inches; avoiding chocolate, coffee, peppermint, fruit juices, tomatoes, greasy and spicy foods. Encouraged moderation of alcoholic beverages, and avoidance of smoking. Gastroparesis diet: [email or web address] en documented in this encounter [facility] 04-03-2023 Note HNO ID: [id number] Author: Miladis Nassar MD Service: ? Author Type: Physician Type: Progress Notes Filed: 04/03/2023 9:25 AM Note Text: Chief Complaint Patient presents with: Hospital F/U [facility] Ko Bah is a 27 year old female who presents here today for ER Follow Up.. Patient evaluated at [facility] ED on 04/01 for complaint of nausea, vomiting, and hematemesis with dark blood. Denied abdominal pain, hematochezia, or melena. Workup in the ED showed VSS, normal abdominal exam. CBC, CMP, PT/INR and PTT were normal. Serum HCG negative. UA negative for infection or hematuria. Lipase normal. FOBT negative. Discharged home after GI cocktail and zofran. Given rx for zofran and Omeprazole. After discharge, patient did have a couple more episodes of vomiting that same day without hematemesis, but has resolved since. Nausea has improved gradually. Using zofran PRN which helps and has 6 tablets left. Does complain of heartburn and globus sensation. Taking Omeprazole 40 mg daily as previously prescribed by our office which helps somewhat with her heartburn/reflux. Admits to dysphagia and odynophagia without regurgitation. Denies fever/chills, early satiety, abdominal pain. Past medical history, appointments, medications, allergies reviewed. Previous Medical History PAST MEDICAL HISTORY Diagnosis Date Anxiety Bipolar disorder ([facility]) counseling center Broken leg 08/2014 Left Leg Deliberate self-cutting history of Depression GERD (gastroesophageal reflux disease) History of bulimia Overweight (BMI 25.0-29.9) Previous Surgical History PAST SURGICAL HISTORY Procedure Laterality Date COLONOSCOPY FLX DX W/COLLJ SPEC WHEN PFRMD 04/12/2019 Colonoscopy ESOPHAGOGASTRODUODENOSCOPY TRANSORAL DIAGNOSTIC 04/12/2019 EGD PAST SURGICAL HISTORY OF 09/24 Left Knee, pins placed Family History FAMILY HISTORY Problem Relation Age of Onset None Mother Psychiatry Mother bipolar other (endometriosis) Mother anxiety with OCPs/MARY Psychiatry Father anxiety Diabetes Father Psychiatry Sister bipolar Psychiatry Maternal Grandmother other (Liver Failure) Maternal Grandmother other (endometriosis) Sister Psychiatry Brother bipolar Patient Allergies ALLERGIES Allergen Reactions Gluten Swelling, Vomiting Hydrocodone Vomiting Zoloft [Sertraline * GI Upset Current Medications Current Outpatient Medications on File Prior to Visit Medication Sig lamoTRIgine (LAMICTAL) 100 mg tablet Take 100 mg by mouth once daily. hydrOXYzine HCl (ATARAX) 50 mg tablet Take 50 mg by mouth three times daily as needed. ondansetron (ZOFRAN) 4 mg tablet Take 4 mg by mouth every 6 hours as needed. prazosin (MINIPRESS) 1 mg cap Take 1 mg by mouth daily at bedtime. traZODone (DESYREL) 50 mg tablet TAKE 1 AND 1/2 (ONE AND ONE-HALF) TABLETS BY MOUTH AT BEDTIME NEEDED FOR INSOMNIA Magnesium 30 mg tablet Take by mouth. omeprazole (PRILOSEC) 40 mg capsule Take 1 capsule by mouth once daily. multivit with iron,minerals (MULTIVITAMIN AND MINERALS ORAL) Take by mouth. predniSONE (DELTASONE) 10 mg tablet Take 6 tablets at once by mouth for 3 days, 4 tablets for 3 days, 3 tablets for 3 days, 2 tablets for 3 days, 1 tab for 3 days (Patient not taking: Reported on 05/21/2021 ) Loperamide HCl (IMODIUM) 2 mg tab Take 1/2 to one full tablet each morning. (Patient not taking: Reported on 05/21/2021 ) fluticasone (FLOVENT HFA) 110 mcg/actuation inhaler Inhale 2 Puffs as instructed twice daily. (Patient not taking: Reported on 05/21/2021 ) famotidine (PEPCID) 20 mg tablet Take 1 tablet by mouth twice daily. (Patient not taking: Reported on 08/30/2021 ) benztropine (COGENTIN) 0.5 mg tablet Take 0.5 mg by mouth twice daily. risperiDONE (RISPERDAL) 0.5 mg tablet Take 1 mg by mouth twice daily. (Patient not taking: Reported on 05/21/2021 ) naltrexone (TREXAN) 50 mg tablet Take 50 mg by mouth once daily. (Patient not taking: Reported on 05/21/2021 ) QUEtiapine (SEROQUEL) 50 mg tablet Take 1 tablet by mouth twice daily. (Patient not taking: Reported on 04/18/2019 ) FLUoxetine (PROZAC) 20 mg capsule Take 1 capsule by mouth once daily. (Patient not taking: Reported on 04/18/2019 ) ondansetron orally disintegrating (ZOFRAN ODT) 4 mg disintegrating tablet Take 1 tablet by mouth every 6 hours as needed for Nausea/Vomiting. (Patient not taking: Reported on 05/21/2021 ) mupirocin (BACTROBAN) 2 % ointment Apply 1 application to affected area twice daily. Location: both ears (Patient not taking: Reported on 04/15/2019 ) hydrOXYzine pamoate (VISTARIL) 25 mg capsule Take 1 capsule by mouth three times daily as needed for Anxiety. (Patient not taking: Reported on 05/21/2021 ) No current facility-administered medications on file prior to visit. Social History Social History Tobacco Use Smoking status: Every Day Packs/day: 1.00 Years: 6.00 Additional pac (more content not included)... [facility] 04-03-2023 History of Present illness Narrative Chief Complaint Patient presents with: Hospital F/U [facility] Ko Avinash Bah is a 27 year old female who presents here today for ER Follow Up.. Patient evaluated at [facility] ED on 04/01 for complaint of nausea, vomiting, and hematemesis with dark blood. Denied abdominal pain, hematochezia, or melena. Workup in the ED showed VSS, normal abdominal exam. CBC, CMP, PT/INR and PTT were normal. Serum HCG negative. UA negative for infection or hematuria. Lipase normal. FOBT negative. Discharged home after GI cocktail and zofran. Given rx for zofran and Omeprazole. After discharge, patient did have a couple more episodes of vomiting that same day without hematemesis, but has resolved since. Nausea has improved gradually. Using zofran PRN which helps and has 6 tablets left. Does complain of heartburn and globus sensation. Taking Omeprazole 40 mg daily as previously prescribed by our office which helps somewhat with her heartburn/reflux. Admits to dysphagia and odynophagia without regurgitation. Denies fever/chills, early satiety, abdominal pain. Past medical history, appointments, medications, allergies reviewed. Previous Medical History PAST MEDICAL HISTORY Diagnosis Date Anxiety Bipolar disorder (HCC) counseling center Broken leg 08/2014 Left Leg Deliberate self-cutting history of Depression GERD (gastroesophageal reflux disease) History of bulimia Overweight (BMI 25.0-29.9) Previous Surgical History PAST SURGICAL HISTORY Procedure Laterality Date COLONOSCOPY FLX DX W/COLLJ SPEC WHEN PFRMD 04/12/2019 Colonoscopy ESOPHAGOGASTRODUODENOSCOPY TRANSORAL DIAGNOSTIC 04/12/2019 EGD PAST SURGICAL HISTORY OF 2/15 Left Knee, pins placed Family History FAMILY HISTORY Problem Relation Age of Onset None Mother Psychiatry Mother bipolar other (endometriosis) Mother anxiety with OCPs/MARY Psychiatry Father anxiety Diabetes Father Psychiatry Sister bipolar Psychiatry Maternal Grandmother other (Liver Failure) Maternal Grandmother other (endometriosis) Sister Psychiatry Brother bipolar Patient Allergies ALLERGIES Allergen Reactions Gluten Swelling, Vomiting Hydrocodone Vomiting Zoloft [Sertraline * GI Upset Current Medications Current Outpatient Medications on File Prior to Visit Medication Sig lamoTRIgine (LAMICTAL) 100 mg tablet Take 100 mg by mouth once daily. hydrOXYzine HCl (ATARAX) 50 mg tablet Take 50 mg by mouth three times daily as needed. ondansetron (ZOFRAN) 4 mg tablet Take 4 mg by mouth every 6 hours as needed. prazosin (MINIPRESS) 1 mg cap Take 1 mg by mouth daily at bedtime. traZODone (DESYREL) 50 mg tablet TAKE 1 & 1/2 (ONE & ONE-HALF) TABLETS BY MOUTH AT BEDTIME NEEDED FOR INSOMNIA Magnesium 30 mg tablet Take by mouth. omeprazole (PRILOSEC) 40 mg capsule Take 1 capsule by mouth once daily. multivit with iron,minerals (MULTIVITAMIN AND MINERALS ORAL) Take by mouth. predniSONE (DELTASONE) 10 mg tablet Take 6 tablets at once by mouth for 3 days, 4 tablets for 3 days, 3 tablets for 3 days, 2 tablets for 3 days, 1 tab for 3 days (Patient not taking: Reported on 05/21/2021 ) Loperamide HCl (IMODIUM) 2 mg tab Take 1/2 to one full tablet each morning. (Patient not taking: Reported on 05/21/2021 ) fluticasone (FLOVENT HFA) 110 mcg/actuation inhaler Inhale 2 Puffs as instructed twice daily. (Patient not taking: Reported on 05/21/2021 ) famotidine (PEPCID) 20 mg tablet Take 1 tablet by mouth twice daily. (Patient not taking: Reported on 08/30/2021 ) benztropine (COGENTIN) 0.5 mg tablet Take 0.5 mg by mouth twice daily. risperiDONE (RISPERDAL) 0.5 mg tablet Take 1 mg by mouth twice daily. (Patient not taking: Reported on 05/21/2021 ) naltrexone (TREXAN) 50 mg tablet Take 50 mg by mouth once daily. (Patient not taking: Reported on 05/21/2021 ) QUEtiapine (SEROQUEL) 50 mg tablet Take 1 tablet by mouth twice daily. (Patient not taking: Reported on 04/18/2019 ) FLUoxetine (PROZAC) 20 mg capsule Take 1 capsule by mouth once daily. (Patient not taking: Reported on 04/18/2019 ) ondansetron orally disintegrating (ZOFRAN ODT) 4 mg disintegrating tablet Take 1 tablet by mouth every 6 hours as needed for Nausea/Vomiting. (Patient not taking: Reported on 05/21/2021 ) mupirocin (BACTROBAN) 2 % ointment Apply 1 application to affected area twice daily. Location: both ears (Patient not taking: Reported on 04/15/2019 ) hydrOXYzine pamoate (VISTARIL) 25 mg capsule Take 1 capsule by mouth three times daily as needed for Anxiety. (Patient not taking: Reported on 05/21/2021 ) No current facility-administered medications on file prior to visit. Social History Social History Tobacco Use Smoking status: Every Day Packs/day: 1.00 Years: 6.00 Additional pack years: 0.00 Total pack years: 6.00 Types: Cigarettes Last attempt to quit: 11/15/2016 Years since quittin.3 Smokeless tobacco: Never Substance Use Topics Alcohol use: Yes Comment: rarely Drug use: No Review of Symptoms REVIEW OF SYSTEMS See HPI EXAM: BP 104/68 Pulse 82 Temp 36.1 C (97 F) Resp 16 Wt 64.2 kg (141 lb 9.6 oz) LMP 04/02/2023 (Exact Date) SpO2 94% BMI 24.69 kg/m General Appearance: Well appearing, alert, in no acute distress, well-hydrated, well nourished.. Skin: Skin color, texture, turgor normal, no suspicious rashes or lesions. Oropharynx: Lips, mucosa, and tongue normal, teeth and gums normal, oropharynx normal. Neck: Supple, no adenopathy; thyroid symmetric, normal size, no bruits. Lungs: Lungs clear to auscultation. No wheezing, rhonchi, rales.. Heart: RRR without murmur, gallop, or rubs. No ectopy. Abdomen: Abdomen soft. Bowel sounds normal. No masses, organomegaly, Positive findings: tenderness mild epigastric without guarding or rebound. Health Maintenance List HEPATITIS B(1 of 3 - 3-dose series) Never done COVID-19 VACCINE(1) Never done PNEUMOCOCCAL(1 - PCV) Never done DTAP,TDAP,TD(1 - Tdap) Never done PAP TESTING due on 04/15/2022 DEPRESSION ASSESSMENT Never done INFLUENZA(1) due on 04/10/2023 HEPATITIS C SCREENING Completed HIV SCREENING Completed HPV VACCINE Discontinued ASSESSMENT/PLAN: 1. Nausea and vomiting, unspecified vomiting type - ICD9: 787.01, ICD10: R11.2 (primary diagnosis) Resolved vomiting with improved nausea. No recurrent hematemesis. With new symptoms of epigastric pain on exam, GERD, dysphagia and odynophagia will have her continue PPI, take H2 wendy OTC, and start carafate. Avoid acidic/triggering foods for GERD and f/u with GI for EGD. Blood work obtained 2 days ago unremarkable, so will not repeat today. Continue Zofran PRN for nausea and will refill she runs out and symptoms persist.Red flags for re-assessment reviewed with patient in detail. - CONSULT TO GASTROENTEROLOGY - SUCRALFATE 1 GRAM TABLET 2. Hematemesis with nausea - ICD9: 578.0, 787.02, ICD10: K92.0 - CONSULT TO GASTROENTEROLOGY - SUCRALFATE 1 GRAM TABLET 3. Gastroesophageal reflux disease, unspecified whether esophagitis present - ICD9: 530.81, ICD10: K21.9 - CONSULT TO GASTROENTEROLOGY - SUCRALFATE 1 GRAM TABLET - OMEPRAZOLE 40 MG CAPSULE,DELAYED RELEASE 4. Dysphagia, unspecified type - ICD9: 787.20, ICD10: R13.10 - CONSULT TO GASTROENTEROLOGY - SUCRALFATE 1 GRAM TABLET 5. Odynophagia - ICD9: 787.20, ICD10: R13.10 - CONSULT TO GASTROENTEROLOGY - SUCRALFATE 1 GRAM TABLET 6. Epigastric pain - ICD9: 789.06, ICD10: R10.13 See above. Miladis Nassar MD documented in this encounter [facility] 04-01-2023 Miscellaneous Notes Agree with ER evaluation now with f/u in 3-5 days after discharge. Patient phoned to reports she felt very nauseous when woke up. Vomited several times. Vomit was dark red blood with mucous. Reports she is no longer nauseous, but is having a hard time swallowing and feels like something is stuck in her throat. Reports she is having a hard time talking. Patient's words sound clear, but can hear voice a little shaky. Reports she does have a stomach ulcer. Patient agreeable to ER for evaluation. Will have family drive her. documented in this encounter [facility] 01-29-2023 Miscellaneous Notes Pt wrote into office via [employer] asking about lab results and asking about next step. I notified her of labs/US results with Provider recommendation via [employer]. Sheba Wilhelm Ma Can you please call the patient and let her know that I reviewed her labs and ultrasound results. Labs were all relatively normal, negative . Sound of the upper abdomen was normal as well. At this time I do not see any causes for her ongoing symptoms. She may consider trialing Pepcid or Prilosec first thing in the morning for the next 2 weeks to see if her symptoms improve. Or I would recommend that she follow-up with gastroenterology. Please let me know what she prefers. Thank you. Kamila Dick APRN.SUELLEN documented in this encounter [facility] 01-28-2023 Note HNO ID: [id number] Author: Gracy Choi RDMS Service: ? Author Type: [employer] Special Education Teacher Type: Progress Notes Filed: 01/28/2023 11:40 AM Note Text: Radiology Service Progress Note PATIENT NAME: Ko Bah DATE OF SERVICE: January 28, 2023 TIME: 11:40 AM PATIENT IDENTITY VERIFICATION COMPLETED USING TWO (2) IDENTIFIERS: Name and Date of confirmed by patient verbally. FALL SCREENING: Has the patient had 2 falls in the last year or 1 fall with injury or currently using an Ambulatory Assistive Device (Walker, Cane, Wheelchair, Crutches, etc.)? No PATIENT GENDER DATA: Female. status: : No status: NO. PATIENT RELEVANT IMPLANT DATA REVIEWED: Not Applicable RADIOLOGY DEPARTMENT: Ultrasound PERIPHERAL IV DATA: Not applicable SIGNED BY: Gracy Choi RDMS January 28, 2023 11:40 AM [facility] 01-28-2023 Note HNO ID: [id number] Author: Kamila Dick APRN.HELICOPTER SPECIALIST Service: ? Author Type: Nurse Practitioner Type: Progress Notes Filed: 01/28/2023 11:08 AM Note Text: This is a 27 year old female who presents today with: Patient presents with: Acute Visit: naueseous and throwing up HISTORY OF PRESENT ILLNESS: Ko Bah is a 27 year old female. Patient presents with: Acute Visit: naueseous and throwing up Patient of Dr. Nassar here in the office for nausea/vomiting in the morning. Has been on going for a year, has lost about 40 lbs. Refers that she has history of bulemia, spoke with psychiatry and no concerns for repeated thoughts or behavior related to that. Refers she is vomiting as soon as she wakes up, will be food that she ate at dinner. Will have a BM when first getting up in the morning, then vomit, and then another BM. Will wake up with dull abdominal pain. Negative test at home. No diarrhea, abnormal vaginal discharge, or urinary symptom. Symptoms last a couple of hours in the morning. Has seen GI in the past, refers symptoms are much worse now. PAST MEDICAL HISTORY: PAST MEDICAL HISTORY Diagnosis Date Anxiety Bipolar disorder ([facility]) counseling center Broken leg 08/2014 Left Leg Deliberate self-cutting history of Depression GERD (gastroesophageal reflux disease) History of bulimia Overweight (BMI 25.0-29.9) PAST SURGICAL HISTORY Procedure Laterality Date COLONOSCOPY FLX DX W/COLLJ SPEC WHEN PFRMD 04/12/2019 Colonoscopy ESOPHAGOGASTRODUODENOSCOPY TRANSORAL DIAGNOSTIC 04/12/2019 EGD PAST SURGICAL HISTORY OF 09/24 Left Knee, pins placed ALLERGIES Hydrocodone and Zoloft [Sertraline Hcl] MEDICATIONS Current Outpatient Medications Medication Sig Magnesium 30 mg tablet Take by mouth. omeprazole (PRILOSEC) 40 mg capsule Take 1 capsule by mouth once daily. multivit with iron,minerals (MULTIVITAMIN AND MINERALS ORAL) Take by mouth. predniSONE (DELTASONE) 10 mg tablet Take 6 tablets at once by mouth for 3 days, 4 tablets for 3 days, 3 tablets for 3 days, 2 tablets for 3 days, 1 tab for 3 days (Patient not taking: Reported on 05/21/2021 ) Loperamide HCl (IMODIUM) 2 mg tab Take 1/2 to one full tablet each morning. (Patient not taking: Reported on 05/21/2021 ) fluticasone (FLOVENT HFA) 110 mcg/actuation inhaler Inhale 2 Puffs as instructed twice daily. (Patient not taking: Reported on 05/21/2021 ) famotidine (PEPCID) 20 mg tablet Take 1 tablet by mouth twice daily. (Patient not taking: Reported on 08/30/2021 ) benztropine (COGENTIN) 0.5 mg tablet Take 0.5 mg by mouth twice daily. (Patient not taking: Reported on 05/21/2021 ) risperiDONE (RISPERDAL) 0.5 mg tablet Take 1 mg by mouth twice daily. (Patient not taking: Reported on 05/21/2021 ) naltrexone (TREXAN) 50 mg tablet Take 50 mg by mouth once daily. (Patient not taking: Reported on 05/21/2021 ) QUEtiapine (SEROQUEL) 50 mg tablet Take 1 tablet by mouth twice daily. (Patient not taking: Reported on 04/18/2019 ) FLUoxetine (PROZAC) 20 mg capsule Take 1 capsule by mouth once daily. (Patient not taking: Reported on 04/18/2019 ) ondansetron orally disintegrating (ZOFRAN ODT) 4 mg disintegrating tablet Take 1 tablet by mouth every 6 hours as needed for Nausea/Vomiting. (Patient not taking: Reported on 05/21/2021 ) mupirocin (BACTROBAN) 2 % ointment Apply 1 application to affected area twice daily. Location: both ears (Patient not taking: Reported on 04/15/2019 ) hydrOXYzine pamoate (VISTARIL) 25 mg capsule Take 1 capsule by mouth three times daily as needed for Anxiety. (Patient not taking: Reported on 05/21/2021 ) No current facility-administered medications for this visit. FAMILY HISTORY Problem Relation Age of Onset None Mother Psychiatry Mother bipolar other (endometriosis) Mother anxiety with OCPs/MARY Psychiatry Father anxiety Diabetes Father Psychiatry Sister bipolar Psychiatry Maternal Grandmother other (Liver Failure) Maternal Grandmother other (endometriosis) Sister Psychiatry Brother bipolar Social History Tobacco Use Smoking status: Every Day Packs/day: 1.00 Years: 6.00 Pack years: 6.00 Types: Cigarettes Last attempt to quit: 11/15/2016 Years since quittin.2 Smokeless tobacco: Never Substance Use Topics Alcohol use: Yes Comment: rarely Drug use: No REVIEW OF SYSTEMS GENERAL: No weight loss, malaise or fevers/chills HEENT: Negative for frequent or significant headaches, No changes in hearing or vision. NECK: Negative for lumps, goiter, pain and significant neck swelling RESPIRATORY: Negative for cough, hemoptysis, wheezing, dyspnea or shortness of breath CARDIOVASCULAR: Negative for chest pain, leg swelling, orthopnea, or palpitations GI: + Abdominal pain/nausea/vomiting : No history of dysuria, frequency or incontinence MUSCULOSKELETAL: Negative for joint pain or swelling. SKIN: Negative (more content not included)... [facility] 01-28-2023 History of Present illness Narrative Radiology Service Progress Note PATIENT NAME: Ko Bah DATE OF SERVICE: January 28, 2023 TIME: 11:40 AM PATIENT IDENTITY VERIFICATION COMPLETED USING TWO (2) IDENTIFIERS: Name and Date of confirmed by patient verbally. FALL SCREENING: Has the patient had 2 falls in the last year or 1 fall with injury or currently using an Ambulatory Assistive Device (Walker, Cane, Wheelchair, Crutches, etc.)? No PATIENT GENDER DATA: Female. status: : No status: NO. PATIENT RELEVANT IMPLANT DATA REVIEWED: Not Applicable RADIOLOGY DEPARTMENT: Ultrasound PERIPHERAL IV DATA: Not applicable SIGNED BY: Gracy Choi RDMS January 28, 2023 11:40 AM documented in this encounter [facility] 01-28-2023 Instructions Kamila Dick APRN.CNP - 01/28/2023 10:49 AM EDT Get labs completed Schedule appt for ultrasound May continue with nausea medication as needed. Stay well hydrated. Try to limit fats in diet until results are back. Follow up pending test results. documented in this encounter [facility] 01-28-2023 History of Present illness Narrative This is a 27 year old female who presents today with: Patient presents with: Acute Visit: naueselatrice and throwing up HISTORY OF PRESENT ILLNESS: Ko Bah is a 27 year old female. Patient presents with: Acute Visit: naueseous and throwing up Patient of Dr. Nassar here in the office for nausea/vomiting in the morning. Has been on going for a year, has lost about 40 lbs. Refers that she has history of bulemia, spoke with psychiatry and no concerns for repeated thoughts or behavior related to that. Refers she is vomiting as soon as she wakes up, will be food that she ate at dinner. Will have a BM when first getting up in the morning, then vomit, and then another BM. Will wake up with dull abdominal pain. Negative test at home. No diarrhea, abnormal vaginal discharge, or urinary symptom. Symptoms last a couple of hours in the morning. Has seen GI in the past, refers symptoms are much worse now. PAST MEDICAL HISTORY: PAST MEDICAL HISTORY Diagnosis Date Anxiety Bipolar disorder ([facility]) counseling center Broken leg 08/2014 Left Leg Deliberate self-cutting history of Depression GERD (gastroesophageal reflux disease) History of bulimia Overweight (BMI 25.0-29.9) PAST SURGICAL HISTORY Procedure Laterality Date COLONOSCOPY FLX DX W/COLLJ SPEC WHEN PFRMD 04/12/2019 Colonoscopy ESOPHAGOGASTRODUODENOSCOPY TRANSORAL DIAGNOSTIC 04/12/2019 EGD PAST SURGICAL HISTORY OF 09/24 Left Knee, pins placed ALLERGIES Hydrocodone and Zoloft [Sertraline Hcl] MEDICATIONS Current Outpatient Medications Medication Sig Magnesium 30 mg tablet Take by mouth. omeprazole (PRILOSEC) 40 mg capsule Take 1 capsule by mouth once daily. multivit with iron,minerals (MULTIVITAMIN AND MINERALS ORAL) Take by mouth. predniSONE (DELTASONE) 10 mg tablet Take 6 tablets at once by mouth for 3 days, 4 tablets for 3 days, 3 tablets for 3 days, 2 tablets for 3 days, 1 tab for 3 days (Patient not taking: Reported on 05/21/2021 ) Loperamide HCl (IMODIUM) 2 mg tab Take 1/2 to one full tablet each morning. (Patient not taking: Reported on 05/21/2021 ) fluticasone (FLOVENT HFA) 110 mcg/actuation inhaler Inhale 2 Puffs as instructed twice daily. (Patient not taking: Reported on 05/21/2021 ) famotidine (PEPCID) 20 mg tablet Take 1 tablet by mouth twice daily. (Patient not taking: Reported on 08/30/2021 ) benztropine (COGENTIN) 0.5 mg tablet Take 0.5 mg by mouth twice daily. (Patient not taking: Reported on 05/21/2021 ) risperiDONE (RISPERDAL) 0.5 mg tablet Take 1 mg by mouth twice daily. (Patient not taking: Reported on 05/21/2021 ) naltrexone (TREXAN) 50 mg tablet Take 50 mg by mouth once daily. (Patient not taking: Reported on 05/21/2021 ) QUEtiapine (SEROQUEL) 50 mg tablet Take 1 tablet by mouth twice daily. (Patient not taking: Reported on 04/18/2019 ) FLUoxetine (PROZAC) 20 mg capsule Take 1 capsule by mouth once daily. (Patient not taking: Reported on 04/18/2019 ) ondansetron orally disintegrating (ZOFRAN ODT) 4 mg disintegrating tablet Take 1 tablet by mouth every 6 hours as needed for Nausea/Vomiting. (Patient not taking: Reported on 05/21/2021 ) mupirocin (BACTROBAN) 2 % ointment Apply 1 application to affected area twice daily. Location: both ears (Patient not taking: Reported on 04/15/2019 ) hydrOXYzine pamoate (VISTARIL) 25 mg capsule Take 1 capsule by mouth three times daily as needed for Anxiety. (Patient not taking: Reported on 05/21/2021 ) No current facility-administered medications for this visit. FAMILY HISTORY Problem Relation Age of Onset None Mother Psychiatry Mother bipolar other (endometriosis) Mother anxiety with OCPs/MARY Psychiatry Father anxiety Diabetes Father Psychiatry Sister bipolar Psychiatry Maternal Grandmother other (Liver Failure) Maternal Grandmother other (endometriosis) Sister Psychiatry Brother bipolar Social History Tobacco Use Smoking status: Every Day Packs/day: 1.00 Years: 6.00 Pack years: 6.00 Types: Cigarettes Last attempt to quit: 11/15/2016 Years since quittin.2 Smokeless tobacco: Never Substance Use Topics Alcohol use: Yes Comment: rarely Drug use: No REVIEW OF SYSTEMS GENERAL: No weight loss, malaise or fevers/chills HEENT: Negative for frequent or significant headaches, No changes in hearing or vision. NECK: Negative for lumps, goiter, pain and significant neck swelling RESPIRATORY: Negative for cough, hemoptysis, wheezing, dyspnea or shortness of breath CARDIOVASCULAR: Negative for chest pain, leg swelling, orthopnea, or palpitations GI: + Abdominal pain/nausea/vomiting : No history of dysuria, frequency or incontinence MUSCULOSKELETAL: Negative for joint pain or swelling. SKIN: Negative for lesions, rash, and itching ENDOCRINE: Negative for cold or heat intolerance, polyuria, polydipsia and goiter NEURO: No history of headaches, syncope, paralysis, seizures or tremors MOOD: Negative for depression, anxiety, or suicidal ideation. EXAM: BP 120/84 Pulse 80 Resp 16 Wt 65.8 kg (145 lb) LMP 08/17/2020 (Exact Date) SpO2 96% BMI 25.28 kg/m PHYSICAL EXAM: General Appearance: Well appearing, alert, in no acute distress, well-hydrated, well nourished.. Skin: Skin color, texture, turgor normal, no suspicious rashes or lesions. Head: Normocephalic, no masses, lesions, tenderness or abnormalities. Eyes: Anicteric sclera. Pupils are equally round and reactive to light. Extraocular movements are intact. Lungs: Lungs clear to auscultation. No wheezing, rhonchi, rales.. Heart: RRR without murmur, gallop, or rubs. No ectopy. Abdomen: Abdomen soft. Bowel sounds normal. No masses, organomegaly, Negative CVA tenderness. + Hurtado's sign, grimacing with palpation in right upper quadrant. Extremities: No deformities, edema, skin discoloration, clubbing or cyanosis. Good capillary refill. Peripheral Pulses: Normal, Capillary refill <2secs, strong peripheral pulses, Pulses palpable. Neurologic: Gait normal. Sensation grossly intact. ASSESSMENT/PLAN: 1. RUQ pain - ICD9: 789.01, ICD10: R10.11 (primary diagnosis) - Get labs and US completed. - May continue to use nausea medication as needed. - Instructed to stay well hydrated. - US ABD RIGHT UPPER QUADRANT - CBC + DIFF - COMP METABOLIC PANEL - LIPASE BLD - AMYLASE BLD - CONSULT TO GENERAL SURGERY 2. Nausea and vomiting, unspecified vomiting type - ICD9: 787.01, ICD10: R11.2 - CBC + DIFF - COMP METABOLIC PANEL - LIPASE BLD - AMYLASE BLD - PROMETHAZINE 25 MG TABLET - HCG QUANTITATIVE Follow-up pending test results or sooner as needed. Discussed treatment plan and patient voices understanding. Patient's questions answered appropriately. Medications and potential side effects were discussed and patient voices understanding. Kamila Dick APRN.SUELLEN This note was partially generated using [employer] voice recognition system. Note was reviewed for accuracy. There may be minor misspellings or grammar miscues with [employer] voice recognition. documented in this encounter [facility] 11-12-2022 Note HNO ID: [id number] Author: Miladis Nassar MD Service: ? Author Type: Physician Type: Progress Notes Filed: 11/16/2022 4:34 PM Note Text: Chief Complaint Patient presents with: Abdominal Pain: Center of abdomen x1 week Medication Follow-up HPI Ko Bah is a 27 year old female who presents here today for Above Complaints. Patient complaining today of epigastric pain for the last week. Described as intermittent throbbing or sharp without radiation. Not treating with anything OTC for symptoms. Exacerbated with cough, sneeze, eating fatty foods or carbs. Admits to 3-4 episodes of watery/loose stools per day and heartburn/reflux,. Denies fever/chills, nausea, vomiting, hematochezia, melena, urinary symptoms, abnormal vaginal bleeding or discharge, alcohol abuse. She states that she took a test 2 days ago which was negative. Sexually active without contraception. LMP: 10/16. Periods are typically regular. Patient notes that she has not follow up with her psychiatrist at the counseling center since last year for her history of bulimia, anxiety, and bipolar disorder. No on any of her medications now. Noted she has had 25 lb weight loss since 08/2021. States she has lost this weight over the last 5-6 months by eating healthier diet. Also has history of bulimia and has been inducing vomiting about 3 times per week for the last 5-6 months. Denies SI/HI, plan to harm herself today. Past medical history, appointments, medications, allergies reviewed. Previous Medical History PAST MEDICAL HISTORY Diagnosis Date Anxiety Broken leg 08/24 Left Leg Deliberate self-cutting history of Depression GERD (gastroesophageal reflux disease) History of bulimia Overweight (BMI 25.0-29.9) Previous Surgical History PAST SURGICAL HISTORY Procedure Laterality Date COLONOSCOPY FLX DX W/COLLJ SPEC WHEN PFRMD 04/12/2019 Colonoscopy ESOPHAGOGASTRODUODENOSCOPY TRANSORAL DIAGNOSTIC 04/12/2019 EGD PAST SURGICAL HISTORY OF 09/24 Left Knee, pins placed Family History FAMILY HISTORY Problem Relation Age of Onset None Mother Psychiatry Mother bipolar other (endometriosis) Mother anxiety with OCPs/MARY Psychiatry Father anxiety Diabetes Father Psychiatry Sister bipolar Psychiatry Maternal Grandmother other (Liver Failure) Maternal Grandmother other (endometriosis) Sister Psychiatry Brother bipolar Patient Allergies ALLERGIES Allergen Reactions Hydrocodone Vomiting Zoloft [Sertraline * GI Upset Current Medications Current Outpatient Medications on File Prior to Visit Medication Sig Magnesium 30 mg tablet Take by mouth. multivit with iron,minerals (MULTIVITAMIN AND MINERALS ORAL) Take by mouth. predniSONE (DELTASONE) 10 mg tablet Take 6 tablets at once by mouth for 3 days, 4 tablets for 3 days, 3 tablets for 3 days, 2 tablets for 3 days, 1 tab for 3 days (Patient not taking: Reported on 05/21/2021 ) Loperamide HCl (IMODIUM) 2 mg tab Take 1/2 to one full tablet each morning. (Patient not taking: Reported on 05/21/2021 ) fluticasone (FLOVENT HFA) 110 mcg/actuation inhaler Inhale 2 Puffs as instructed twice daily. (Patient not taking: Reported on 05/21/2021 ) famotidine (PEPCID) 20 mg tablet Take 1 tablet by mouth twice daily. (Patient not taking: Reported on 08/30/2021 ) benztropine (COGENTIN) 0.5 mg tablet Take 0.5 mg by mouth twice daily. (Patient not taking: Reported on 05/21/2021 ) risperiDONE (RISPERDAL) 0.5 mg tablet Take 1 mg by mouth twice daily. (Patient not taking: Reported on 05/21/2021 ) naltrexone (TREXAN) 50 mg tablet Take 50 mg by mouth once daily. (Patient not taking: Reported on 05/21/2021 ) QUEtiapine (SEROQUEL) 50 mg tablet Take 1 tablet by mouth twice daily. (Patient not taking: Reported on 04/18/2019 ) FLUoxetine (PROZAC) 20 mg capsule Take 1 capsule by mouth once daily. (Patient not taking: Reported on 04/18/2019 ) ondansetron orally disintegrating (ZOFRAN ODT) 4 mg disintegrating tablet Take 1 tablet by mouth every 6 hours as needed for Nausea/Vomiting. (Patient not taking: Reported on 05/21/2021 ) mupirocin (BACTROBAN) 2 % ointment Apply 1 application to affected area twice daily. Location: both ears (Patient not taking: Reported on 04/15/2019 ) hydrOXYzine pamoate (VISTARIL) 25 mg capsule Take 1 capsule by mouth three times daily as needed for Anxiety. (Patient not taking: Reported on 05/21/2021 ) No current facility-administered medications on file prior to visit. Social History Social History Tobacco Use Smoking status: Every Day Packs/day: 1.00 Years: 6.00 Pack years: 6.00 Types: Cigarettes Last attempt to quit: 11/15/2016 Years since quittin.9 Smokeless tobacco: Never Substance Use Topics Alcohol use: Yes Comment: rarely Drug use: No Review of Symptoms REVIEW OF SYSTEMS See HPI EXAM: BP 126/78 Pulse 91 Resp 18 Wt 67.3 kg (148 lb (more content not included)... [facility] 11-12-2022 History of Present illness Narrative Chief Complaint Patient presents with: Abdominal Pain: Center of abdomen x1 week Medication Follow-up HPI Ko Bah is a 27 year old female who presents here today for Above Complaints. Patient complaining today of epigastric pain for the last week. Described as intermittent throbbing or sharp without radiation. Not treating with anything OTC for symptoms. Exacerbated with cough, sneeze, eating fatty foods or carbs. Admits to 3-4 episodes of watery/loose stools per day and heartburn/reflux,. Denies fever/chills, nausea, vomiting, hematochezia, melena, urinary symptoms, abnormal vaginal bleeding or discharge, alcohol abuse. She states that she took a test 2 days ago which was negative. Sexually active without contraception. LMP: 10/16. Periods are typically regular. Patient notes that she has not follow up with her psychiatrist at the counseling center since last year for her history of bulimia, anxiety, and bipolar disorder. No on any of her medications now. Noted she has had 25 lb weight loss since 08/2021. States she has lost this weight over the last 5-6 months by eating healthier diet. Also has history of bulimia and has been inducing vomiting about 3 times per week for the last 5-6 months. Denies SI/HI, plan to harm herself today. Past medical history, appointments, medications, allergies reviewed. Previous Medical History PAST MEDICAL HISTORY Diagnosis Date Anxiety Broken leg 08/24 Left Leg Deliberate self-cutting history of Depression GERD (gastroesophageal reflux disease) History of bulimia Overweight (BMI 25.0-29.9) Previous Surgical History PAST SURGICAL HISTORY Procedure Laterality Date COLONOSCOPY FLX DX W/COLLJ SPEC WHEN PFRMD 04/12/2019 Colonoscopy ESOPHAGOGASTRODUODENOSCOPY TRANSORAL DIAGNOSTIC 04/12/2019 EGD PAST SURGICAL HISTORY OF 09/24 Left Knee, pins placed Family History FAMILY HISTORY Problem Relation Age of Onset None Mother Psychiatry Mother bipolar other (endometriosis) Mother anxiety with OCPs/MARY Psychiatry Father anxiety Diabetes Father Psychiatry Sister bipolar Psychiatry Maternal Grandmother other (Liver Failure) Maternal Grandmother other (endometriosis) Sister Psychiatry Brother bipolar Patient Allergies ALLERGIES Allergen Reactions Hydrocodone Vomiting Zoloft [Sertraline * GI Upset Current Medications Current Outpatient Medications on File Prior to Visit Medication Sig Magnesium 30 mg tablet Take by mouth. multivit with iron,minerals (MULTIVITAMIN AND MINERALS ORAL) Take by mouth. predniSONE (DELTASONE) 10 mg tablet Take 6 tablets at once by mouth for 3 days, 4 tablets for 3 days, 3 tablets for 3 days, 2 tablets for 3 days, 1 tab for 3 days (Patient not taking: Reported on 05/21/2021 ) Loperamide HCl (IMODIUM) 2 mg tab Take 1/2 to one full tablet each morning. (Patient not taking: Reported on 05/21/2021 ) fluticasone (FLOVENT HFA) 110 mcg/actuation inhaler Inhale 2 Puffs as instructed twice daily. (Patient not taking: Reported on 05/21/2021 ) famotidine (PEPCID) 20 mg tablet Take 1 tablet by mouth twice daily. (Patient not taking: Reported on 08/30/2021 ) benztropine (COGENTIN) 0.5 mg tablet Take 0.5 mg by mouth twice daily. (Patient not taking: Reported on 05/21/2021 ) risperiDONE (RISPERDAL) 0.5 mg tablet Take 1 mg by mouth twice daily. (Patient not taking: Reported on 05/21/2021 ) naltrexone (TREXAN) 50 mg tablet Take 50 mg by mouth once daily. (Patient not taking: Reported on 05/21/2021 ) QUEtiapine (SEROQUEL) 50 mg tablet Take 1 tablet by mouth twice daily. (Patient not taking: Reported on 04/18/2019 ) FLUoxetine (PROZAC) 20 mg capsule Take 1 capsule by mouth once daily. (Patient not taking: Reported on 04/18/2019 ) ondansetron orally disintegrating (ZOFRAN ODT) 4 mg disintegrating tablet Take 1 tablet by mouth every 6 hours as needed for Nausea/Vomiting. (Patient not taking: Reported on 05/21/2021 ) mupirocin (BACTROBAN) 2 % ointment Apply 1 application to affected area twice daily. Location: both ears (Patient not taking: Reported on 04/15/2019 ) hydrOXYzine pamoate (VISTARIL) 25 mg capsule Take 1 capsule by mouth three times daily as needed for Anxiety. (Patient not taking: Reported on 05/21/2021 ) No current facility-administered medications on file prior to visit. Social History Social History Tobacco Use Smoking status: Every Day Packs/day: 1.00 Years: 6.00 Pack years: 6.00 Types: Cigarettes Last attempt to quit: 11/15/2016 Years since quittin.9 Smokeless tobacco: Never Substance Use Topics Alcohol use: Yes Comment: rarely Drug use: No Review of Symptoms REVIEW OF SYSTEMS See HPI EXAM: BP 126/78 Pulse 91 Resp 18 Wt 67.3 kg (148 lb 6.4 oz) LMP 08/17/2020 (Exact Date) SpO2 98% BMI 25.88 kg/m General Appearance: Well appearing, alert, in no acute distress, well-hydrated, well nourished.. Skin: Skin color, texture, turgor normal, no suspicious rashes or lesions. Abdomen: Abdomen soft/. Bowel sounds normal. No masses, organomegaly, Negative CVA tenderness, Positive findings: tenderness mild epigastric and RUQ without guarding or rebound. Negative murphys. Health Maintenance List HEPATITIS B(1 of 3 - 3-dose series) Never done COVID-19 VACCINE(1) Never done PNEUMOCOCCAL(1 - PCV) Never done DTAP,TDAP,TD(1 - Tdap) Never done PAP TESTING due on 04/15/2022 DEPRESSION ASSESSMENT Never done INFLUENZA(Season Ended) due on 04/10/2023 HEPATITIS C SCREENING Completed HIV SCREENING Completed HPV VACCINE Discontinued Data reviewed Component Latest Ref Rng & Units 11/12/2022 , Urine neg - pos neg Quality Check yes/no Yes ASSESSMENT/PLAN: 1. Epigastric pain - ICD9: 789.06, ICD10: R10.13 (primary diagnosis) Urine testing negative. Obtain labs and urine as ordered. Start PPI for possible gastritis. Call if not improving in the next few days. Red flags for re-assessment reviewed with patient in detail. - HCG QUAL UR B/O - UA DIP, URINE (POC) - CBC + DIFF - COMP METABOLIC PANEL - LIPASE BLD 2. Bulimia nervosa - ICD9: 307.51, ICD10: F50.2 Patient continues to induce vomiting. Discussed risks of continued purging and recommended she call her counselor and psychiatrist for follow up and to resume medications. She agrees to this. Denies SI/HI. Contracted for safety. Miladis Nassar MD documented in this encounter [facility] 04-05-2022 Miscellaneous Notes Reason for Call: elevated B/P, h/a, swelling, redness to let knee Outcome of Call: Advised go to E D Reason for Disposition Systolic BP >= 160 OR Diastolic >= 100 [1] Redness AND [2] painful when touched AND [3] no fever Answer Assessment - Initial Assessment Questions 1. LOCATION: left knee, on top of left knee 2. SIZE and DESCRIPTION: top of kneecap , per pt with redness to site 3. ONSET: first starting four days ago, subsided, recurring today 4. PAIN: 4/10 5. SETTING: negative 6. AGGRAVATING FACTORS: negative 7. ASSOCIATED SYMPTOMS: Is there any pain or redness? redness without increased warmth to left knee 8. OTHER SYMPTOMS: B/P slightly elevated, h/a 9. : negative, per pt. Answer Assessment - Initial Assessment Questions 1. BLOOD PRESSURE: 132/106 during triage, was 123/92, 135/104 today 2. ONSET: When did you take your blood pressure? this evening 3. HOW: home B/P monitor 4. HISTORY: Do you have a history of high blood pressure? Pt. stating hs of preeclampsia 5. MEDICATIONS: negative 6. OTHER SYMPTOMS: swelling, redness of to left nee, 5 - 6 /10 h/a, during day had lightheadedness, migraine 7. : negative, per pt Protocols used: High Blood Rxvsaxco-FGLSY-YJ, Knee Uhvcxwor-EOYYH-BY documented in this encounter [facility] Diagnosis RUQ pain- Primary Abdominal pain, right upper quadrant Nausea and vomiting, unspecified vomiting type [facility]* Diagnosis Nausea and vomiting, unspecified vomiting type- Primary Hematemesis with nausea Gastroesophageal reflux disease, unspecified whether esophagitis present Dysphagia, unspecified type Odynophagia Dysphagia, unspecified Epigastric pain Abdominal pain, epigastric [facility] Diagnosis Abdominal pain, unspecified abdominal location- Primary Gastroesophageal reflux disease, unspecified whether esophagitis present Nausea and vomiting, unspecified vomiting type Hematemesis with nausea Dysphagia, unspecified type Odynophagia Dysphagia, unspecified Bloating Flatulence, eructation, and gas pain Nausea Nausea alone Heartburn- Primary [facility] Diagnosis Nausea and vomiting, unspecified vomiting type Nausea Nausea alone [facility] Diagnosis Bloating Flatulence, eructation, and gas pain [facility] Diagnosis RUQ pain Abdominal pain, right upper quadrant [facility]* Diagnosis Heartburn- Primary Gastroesophageal reflux disease, unspecified whether esophagitis present Nausea and vomiting, unspecified vomiting type Dysphagia, unspecified type Abdominal pain, unspecified abdominal location [facility]* Diagnosis Posterior chest pain- Primary Other chest pain Anxiety Anxiety state, unspecified Bipolar affective disorder, current episode mixed, current episode severity unspecified (HCC) Nicotine abuse Tobacco use disorder [facility] Diagnosis Encounter for gynecological examination (general) (routine) without abnormal findings- Primary Screening for cervical cancer Screening for malignant neoplasm of the cervix Encounter for screening for human papillomavirus (HPV) Special screening examination for human papillomavirus (HPV) Screen for STD (sexually transmitted disease) Screening examination for venereal disease Fibrocystic disease of left breast Diffuse cystic mastopathy PCB (post coital bleeding) Postcoital bleeding [facility] Diagnosis Right hand pain- Primary Pain in limb Closed displaced fracture of shaft of fifth metacarpal bone of right hand, initial encounter [facility] Diagnosis Right hand pain- Primary Pain in limb Closed displaced fracture of shaft of fifth metacarpal bone of right hand, initial encounter [facility] Diagnosis Closed displaced fracture of shaft of fifth metacarpal bone of right hand, initial encounter- Primary Displaced fracture of shaft of fifth metacarpal bone, right hand, initial encounter for closed fracture documented in this encounter [facility] for referral (narrative)* Diagnostic Procedure Only (Routine) - Pending Review Specialty Diagnoses / Procedures Referred By Helen lopez Referred To Contact MOLECULAR & FUNCTIONAL IMAGING Diagnoses Nausea Procedures NM GASTRIC EMPTYING SOLID GASTRIC EMPTYING STUDY Antonio Gayle PA-C [address] [place] [address] Molecular & Functional Imaging [address] [place] [address] Referral ID Status Reason Start Date Expiration Date Visits Requested Visits Authorized [id number] Pending Review Auto-Generat ed Referral 04/07/2023 05/06/2024 1 1 * Outpatient Procedure (Routine) - Authorized Specialty Diagnoses / Procedures Referred By Helen lopez Referred To Contact [facility] Diagnoses Bloating Procedures BREATH TEST LACTOSE BREATH HYDROGEN/METHANE TEST Antonio Gayle PA-C [address] [place] [address] [facility] [address] [place] [address] Referral ID Status Reason Start Date Expiration Date Visits Requested Visits Authorized [id number] Authorized Auto-Generat ed Referral 04/07/2023 04/07/2024 1 1 * Diagnostic Procedure Only (Routine) - Authorized Specialty Diagnoses / Procedures Referred By Helen lopez Referred To Contact XR IMAGING Diagnoses Nausea and vomiting, unspecified vomiting type Nausea Procedures XR ESOPHAGRAM RADIOLOGIC EXAM ESOPHAGUS SINGLE CONTRAST STUDY Antonio Gayle PA-C [address] [address] [place] [address] Referral ID Status Reason Start Date Expiration Date Visits Requested Visits Authorized [id number] Authorized Auto-Generat ed Referral 04/07/2023 05/06/2024 1 1 * Outpatient Procedure (Routine) - Authorized Specialty Diagnoses / Procedures Referred By Helen lopez Referred To Contact [facility] Diagnoses Gastroesophageal reflux disease, unspecified whether esophagitis present Nausea and vomiting, unspecified vomiting type Dysphagia, unspecified type Abdominal pain, unspecified abdominal location Procedures EGD DIAGNOSTIC ESOPHAGOGASTRODUODENOSCOPY TRANSORAL DIAGNOSTIC Antonio Gayle PA-C [address] [address] Cheryl Alfaro MD [address] [place] [address] Referral ID Status Reason Start Date Expiration Date Visits Requested Visits Authorized [id number] Authorized Auto-Generat ed Referral 04/20/2023 08/09/2023 1 1 [facility] for referral (narrative)* Diagnostic Procedure Only (Routine) - Closed Specialty Diagnoses / Procedures Referred By Helen lopez Referred To Contact XR IMAGING Diagnoses Nausea and vomiting, unspecified vomiting type Nausea Procedures XR ESOPHAGRAM RADIOLOGIC EXAM ESOPHAGUS SINGLE CONTRAST STUDY Antonio Gayle PA-C [address] [place] [place] [id number] [place] [address] Referral ID Status Reason Start Date Expiration Date V isits Requested Visits Authorized [id number] Closed Auto-Generate d Referral 04/07/2023 05/06/2024 1 1 [facility] for referral (narrative)* Diagnostic Procedure Only (Urgent) - Closed Specialty Diagnoses / Procedures Referred By Helen lopez Referred To Contact US IMAGING Diagnoses RUQ pain Procedures US ABD RIGHT UPPER QUADRANT US ABDOMINAL REAL TIME W/IMAGE LIMITED Kamila Dick APRN.CNP [address] [place] [address] Us Imaging [facility] Referral ID Status Reason Start Date Expiration Date V isits Requested Visits Authorized [id number] Closed Auto-Generate d Referral 01/28/2023 02/27/2024 1 1 [facility] for referral (narrative)* Outpatient Procedure (Routine) - Closed Specialty Diagnoses / Procedures Referred By Helen lopez Referred To Contact [facility] Diagnoses Gastroesophageal reflux disease, unspecified whether esophagitis present Nausea and vomiting, unspecified vomiting type Dysphagia, unspecified type Abdominal pain, unspecified abdominal location Procedures EGD DIAGNOSTIC ESOPHAGOGASTRODUODENOSCOPY TRANSORAL DIAGNOSTIC Antonio Gayle PA-C [address] [place] [id number] Cheryl Alfaro MD [address] [facility] [place] [address] Referral ID Status Reason Start Date Expiration Date V isits Requested Visits Authorized [id number] Closed Auto-Generate d Referral 04/20/2023 08/09/2023 1 1 [facility] for referral (narrative)* Diagnostic Procedure Only (Routine) - Closed Specialty Diagnoses / Procedures Referred By Helen lopez Referred To Contact XR IMAGING Diagnoses Right hand pain Procedures XR HAND GENERAL 3V PA/LAT/OBL RIGHT RADEX HAND MINIMUM 3 VIEWS Birgit Turcios PA-C [address] [place] [address] [place] [address] Referral ID Status Reason Start Date Expiration Date V isits Requested Visits Authorized [id number] Closed Auto-Generate d Referral 07/16/2023 08/14/2024 1 1 [facility] for visit Narrative* Outpatient Procedure (Routine) - Closed Specialty Diagnoses / Procedures Referred By Helen lopez Referred To Contact [facility] Diagnoses Gastroesophageal reflux disease, unspecified whether esophagitis present Nausea and vomiting, unspecified vomiting type Dysphagia, unspecified type Abdominal pain, unspecified abdominal location Procedures EGD DIAGNOSTIC ESOPHAGOGASTRODUODENOSCOPY TRANSORAL DIAGNOSTIC Antonio Gayle PA-C [address] [address] Cheryl Alfaro MD [address] [facility] [place] [address] Referral ID Status Reason Start Date Expiration Date V isits Requested Visits Authorized [id number] Closed Auto-Generate d Referral 04/20/2023 08/09/2023 1 1 [facility] Summary Purpose Family History No Family History Records FoundNo Family History Records FoundNo Family History Records FoundNo Family History Records FoundNo Family History Records FoundNo Family History Records FoundNo Family History Records FoundNo Family History Records Found Advance Directives No Advanced Directives Records FoundNo Advanced Directives Records FoundNo Advanced Directives Records FoundNo Advanced Directives Records FoundNo Advanced Directives Records FoundNo Advanced Directives Records FoundNo Advanced Directives Records FoundNo Advanced Directives Records Found Reason for Referral Specialty Diagnoses / Procedures Referred By Helen lopez Referred To Contact General Surgery Diagnoses RUQ pain Procedures CONSULT TO GENERAL SURGERY OFFICE/OUTPATIENT [facility] 60-74 MINUTES Kamila Dick APRN.HELICOPTER SPECIALIST [address] [place] [address] Referral ID Status Reason Start Date Expiration Date Visits Requested Visits Authorized [id number] Authorized PCP Requested Referral 01/28/2023 01/28/2024 1 1 Specialty Diagnoses / Procedures Referred By Contac t Referred To Contact US IMAGING Diagnoses RUQ pain Procedures US ABD RIGHT UPPER QUADRANT US ABDOMINAL REAL TIME W/IMAGE LIMITED Kamila Dick APRN.HELICOPTER SPECIALIST [address] [place] [address] Us Imaging Referral ID Status Reason Start Date Expiration Date V isits Requested Visits Authorized [id number] Closed Auto-Generate d Referral 01/28/2023 02/27/2024 1 1 Specialty Diagnoses / Procedures Referred By Helen t Referred To Contact Gastroenterology Diagnoses Gastroesophageal reflux disease, unspecified whether esophagitis present Nausea and vomiting, unspecified vomiting type Hematemesis with nausea Dysphagia, unspecified type Odynophagia Procedures CONSULT TO GASTROENTEROLOGY OFFICE/OUTPATIENT [facility] 60-74 MINUTES Miladis Nassar MD [address] [place] [address] Referral ID Status Reason Start Date Expiration Date Visits Requested Visits Authorized [id number] Authorized PCP Requested Referral 04/03/2023 04/02/2024 1 1 Medications Administered Section Inactive Administered Medications - up to 3 most recent administrations Medication Order MAR Action Action Date Dose Rate Site benzocaine 20% 1 [place] (TOPEX) 1 [place], TOPICAL, DIRECTED, Starting on Thu04/24/23 at 0930, Until Thu04/24/23 at 1329, DOSING DIRECTED BY PHYSICIAN FOR PROCEDURAL SEDATION ONLY - Pharmaceutical Waste: Aerosol -, Intraprocedure Given 04/24/2023 9:12 AM EDT 5 Sprays diphenhydrAMINE 12.5-50 mg injection (BENADRYL) 12.5-50 mg, INTRAVENOUS, DIRECTED, Starting on Thu04/24/23 at 0930, Until Thu04/24/23 at 1329, DOSING DIRECTED BY PHYSICIAN FOR PROCEDURAL SEDATION ONLY, Intraprocedure Given 04/24/2023 9:15 AM EDT 50 mg fentaNYL 50 mcg/mL 25-100 mcg injection (SUBLIMAZE) 25-100 mcg, INTRAVENOUS, DIRECTED, Starting on Thu04/24/23 at 0930, Until Thu04/24/23 at 1329, DOSING DIRECTED BY PHYSICIAN FOR PROCEDURAL SEDATION ONLY, Intraprocedure Given 04/24/2023 9:13 AM EDT 50 mcg lactated ringers iv infusion 75 mL/hr, INTRAVENOUS, CONTINUOUS, Starting on Thu04/24/23 at 0900, Until Thu04/24/23 at 0943, Preprocedure New Bag/Syringe/Piter le 04/24/2023 8:59 AM EDT 75 mL/hr 75 mL/hr Arm, Right midazolam 1-5 mg injection (VERSED) 1-5 mg, INTRAVENOUS, DIRECTED, Starting on Thu04/24/23 at 0930, Until Thu04/24/23 at 1329, DOSING DIRECTED BY PHYSICIAN FOR PROCEDURAL SEDATION ONLY, Intraprocedure Given 04/24/2023 9:19 AM EDT 2 mg Additional Source Comments INFORMATION SOURCE (unrecogn ized section and content) DATE CREATED AUTHOR AUTHOR'S ORGANIZ ATION 03/04/2020 [facility] DATE CREATED AUTHOR AUTHOR'S ORGANIZ ATION 04/09/2022 [facility] DATE CREATED AUTHOR AUTHOR'S ORGANIZ ATION 07/19/2023 [facility] DATE CREATED AUTHOR AUTHOR'S ORGANIZ ATION 08/13/2023 [facility] DATE CREATED AUTHOR AUTHOR'S ORGANIZ ATION 08/13/2023 [facility] DATE CREATED AUTHOR AUTHOR'S ORGANIZ ATION 08/22/2023 [facility] DATE CREATED AUTHOR AUTHOR'S ORGANIZ ATION 09/06/2023 [facility] Source Comments (unrecognize d section and content) In the event this informatio n is protected by the Federal Confidentiality of Alcohol and Drug Abuse Patient Records regulations: The Federal rules restrict any use of the information to criminally investigate or prosecute any alcohol or drug abuse patient.[facility] the event this information is protected by the Federal Confidentiality of Alcohol and Drug Abuse Patient Records regulations: The Federal rules restrict any use of the information to criminally investigate or prosecute any alcohol or drug abuse patient.[facility] the event this information is protected by the Federal Confidentiality of Alcohol and Drug Abuse Patient Records regulations: The Federal rules restrict any use of the information to criminally investigate or prosecute any alcohol or drug abuse patient.[facility] the event this information is protected by the Federal Confidentiality of Alcohol and Drug Abuse Patient Records regulations: The Federal rules restrict any use of the information to criminally investigate or prosecute any alcohol or drug abuse patient.[facility] the event this information is protected by the Federal Confidentiality of Alcohol and Drug Abuse Patient Records regulations: The Federal rules restrict any use of the information to criminally investigate or prosecute any alcohol or drug abuse patient.[facility] the event this information is protected by the Federal Confidentiality of Alcohol and Drug Abuse Patient Records regulations: The Federal rules restrict any use of the information to criminally investigate or prosecute any alcohol or drug abuse patient.[facility] the event this information is protected by the Federal Confidentiality of Alcohol and Drug Abuse Patient Records regulations: The Federal rules restrict any use of the information to criminally investigate or prosecute any alcohol or drug abuse patient.[facility] the event this information is protected by the Federal Confidentiality of Alcohol and Drug Abuse Patient Records regulations: The Federal rules restrict any use of the information to criminally investigate or prosecute any alcohol or drug abuse patient.[facility] the event this information is protected by the Federal Confidentiality of Alcohol and Drug Abuse Patient Records regulations: The Federal rules restrict any use of the information to criminally investigate or prosecute any alcohol or drug abuse patient.[facility] the event this information is protected by the Federal Confidentiality of Alcohol and Drug Abuse Patient Records regulations: The Federal rules restrict any use of the information to criminally investigate or prosecute any alcohol or drug abuse patient.[facility] the event this information is protected by the Federal Confidentiality of Alcohol and Drug Abuse Patient Records regulations: The Federal rules restrict any use of the information to criminally investigate or prosecute any alcohol or drug abuse patient.[facility] the event this information is protected by the Federal Confidentiality of Alcohol and Drug Abuse Patient Records regulations: The Federal rules restrict any use of the information to criminally investigate or prosecute any alcohol or drug abuse patient.[facility] the event this information is protected by the Federal Confidentiality of Alcohol and Drug Abuse Patient Records regulations: The Federal rules restrict any use of the information to criminally investigate or prosecute any alcohol or drug abuse patient.[facility] the event this information is protected by the Federal Confidentiality of Alcohol and Drug Abuse Patient Records regulations: The Federal rules restrict any use of the information to criminally investigate or prosecute any alcohol or drug abuse patient.[facility] Hospital[facility] the event this information is protected by the Federal Confidentiality of Alcohol and Drug Abuse Patient Records regulations: The Federal rules restrict any use of the information to criminally investigate or prosecute any alcohol or drug abuse patient.[facility] Hospital[facility] the event this information is protected by the Federal Confidentiality of Alcohol and Drug Abuse Patient Records regulations: The Federal rules restrict any use of the information to criminally investigate or prosecute any alcohol or drug abuse patient.[facility] Hospital[facility] the event this information is protected by the Federal Confidentiality of Alcohol and Drug Abuse Patient Records regulations: The Federal rules restrict any use of the information to criminally investigate or prosecute any alcohol or drug abuse patient.[facility] the event this information is protected by the Federal Confidentiality of Alcohol and Drug Abuse Patient Records regulations: The Federal rules restrict any use of the information to criminally investigate or prosecute any alcohol or drug abuse patient.[facility] Hospital[facility] the event this information is protected by the Federal Confidentiality of Alcohol and Drug Abuse Patient Records regulations: The Federal rules restrict any use of the information to criminally investigate or prosecute any alcohol or drug abuse patient.[facility] Reason for Visit (unrecogniz ed section and content) Reason Comments Abdominal Pain Center of abdomen x1 week Medication Follow-up Reason Comments Acute Visit naueseous and throwi ng up Reason Comments Results Labs/ US Reason Comments Gastrointestinal Bleed Patient concern Reason Comments ER F/U Reason Comments New Patient Gastroesophageal ref lux disease Specialty Diagnoses / Procedures Referred By Helen t Referred To Contact Gastroenterology Diagnoses Gastroesophageal reflux disease, unspecified whether esophagitis present Nausea and vomiting, unspecified vomiting type Hematemesis with nausea Dysphagia, unspecified type Odynophagia Procedures CONSULT TO GASTROENTEROLOGY OFFICE/OUTPATIENT [facility] 60-74 MINUTES Miladis Nassar MD [address] [place] [address] Referral ID Status Reason Start Date Expiration Date V isits Requested Visits Authorized [id number] Closed PCP Requested Referral 04/03/2023 04/02/2024 1 1 Reason Comments Radio GI Main HB6 Specialty Diagnoses / Procedures Referred By Contac t Referred To Contact XR IMAGING Diagnoses Nausea and vomiting, unspecified vomiting type Nausea Procedures XR ESOPHAGRAM RADIOLOGIC EXAM ESOPHAGUS SINGLE CONTRAST STUDY Antonio Gayle PA-C [address] [place] [id number] Xr Imaging [facility] Referral ID Status Reason Start Date Expiration Date V isits Requested Visits Authorized [id number] Closed Auto-Generate d Referral 04/07/2023 05/06/2024 1 1 Reason Onset Date Comments Procedure 06/10/2023 Breath Test - [place] ct[place] Specialty Diagnoses / Procedures Referred By Contac t Referred To Contact [facility] Diagnoses Bloating Procedures BREATH TEST LACTOSE BREATH HYDROGEN/METHANE TEST Antonio Gayle PA-C [address] [id number] [facility] [place] [address] [place] [id number] Referral ID Status Reason Start Date Expiration Date V isits Requested Visits Authorized [id number] Closed Auto-Generate d Referral 04/07/2023 04/07/2024 1 1 Reason Comments Radiology US Specialty Diagnoses / Procedures Referred By Contac t Referred To Contact US IMAGING Diagnoses RUQ pain Procedures US ABD RIGHT UPPER QUADRANT US ABDOMINAL REAL TIME W/IMAGE LIMITED Kamila Dick, JAKOB.HELICOPTER SPECIALIST [address] [place] [address] Us Imaging [facility] Referral ID Status Reason Start Date Expiration Date V isits Requested Visits Authorized [id number] Closed Auto-Generate d Referral 01/28/2023 02/27/2024 1 1 Reason Comments Results Reason Comments chest discomfort Reason Comments ER F/U Patient reports in E R 2 x in last week and has concerns- prefers to address this VS physical Reason Comments Well Woman Reason Comments New Pain Fracture Reason Comments Fracture Reason Comments Schedule Surgery Care Teams (unrecognized sec tion and content) [employer] Marketing Analyst Relationship Specialty Start Date End Date Miladis Nassar MD [address] [place] [address] PCP - General Family Medicine 04/17/17 [employer] Marketing Analyst Relationship Specialty Start Date End Date Miladis Nassar MD [address] [place] [address] PCP - General Family Medicine 04/17/17 [employer] Marketing Analyst Relationship Specialty Start Date End Date Miladis Nassar MD [address] [place] [address] PCP - General Family Medicine 04/17/17 [employer] Marketing Analyst Relationship Specialty Start Date End Date Miladis Nassar MD [address] [place] [address] PCP - General Family Medicine 04/17/17 E [employer] Marketing Analyst Relationship Specialty Start Date End Date Miladis Nassar MD [address] [place] [address] PCP - General Family Medicine 04/17/17 [employer] Marketing Analyst Relationship Specialty Start Date End Date Miladis Nassar MD [address] [place] [address] PCP - General Family Medicine 04/17/17 [employer] Marketing Analyst Relationship Specialty Start Date End Date Miladis Nassar MD [address] [place] [address] PCP - General Family Medicine 04/17/17 E [employer] Marketing Analyst Relationship Specialty Start Date End Date Miladis Nassar MD [address] [facility] [place] [address] PCP - General Family Medicine 04/17/17 E Commerce Marketing Analyst Relationship Specialty Start Date End Date Miladis Nassar MD [address] [facility] [place] [address] PCP - General Family Medicine 04/17/17 E Commerce Marketing Analyst Relationship Specialty Start Date End Date Miladis Nassar MD [address] [facility] [place] [address] PCP - General Family Medicine 04/17/17 E Commerce Marketing Analyst Relationship Specialty Start Date End Date Miladis Nassar MD [address] [facility] [place] [address] PCP - General Family Medicine 04/17/17 E Commerce Marketing Analyst Relationship Specialty Start Date End Date Miladis Nassar MD [address] [facility] [place] [address] PCP - General Family Medicine 04/17/17 E Commerce Marketing Analyst Relationship Specialty Start Date End Date Miladis Nassar MD [address] [facility] [place] [address] PCP - General Family Medicine 04/17/17 E Commerce Marketing Analyst Relationship Specialty Start Date End Date Miladis Nassar MD [address] [facility] [place] [address] PCP - General Family Medicine 04/17/17 E Commerce Marketing Analyst Relationship Specialty Start Date End Date Miladis Nassar MD [address] [facility] [place] [address] PCP - General Family Medicine 04/17/17 E [employer] Marketing Analyst Relationship Specialty Start Date End Date Miladis Nassar MD [address] [place] [address] PCP - General Family Medicine 04/17/17 FOR RECORDS PERTAINING TO PATIENTS WHO ARE OR HAVE BEEN ENROLLED IN A CHEMICAL DEPENDENCY/SUBSTANCEABUSE PROGRAM, SOME INFORMATION MAY BE OMITTED. This clinical summary was aggregated from multiple sources. Caution should be exercised in using it in the provision of clinical care. This summary normalizes information from multiple sources, and as a consequence, information in this document may materially change the coding, format and clinical context of patient data. In addition, data may be omitted in some cases. CLINICAL DECISIONS SHOULD BE BASED ON THE PRIMARY CLINICAL RECORDS. [employer] provides no warranty or guarantee of the accuracy or completeness of information in this document.
[2023-09-07 15:47] VITALS: RESP 16
--- NOTE | 2023-09-07 15:50 | ED.RN ---
THIS RN EDUCATES PATIENT ON DISCHARGE INSTRUCTIONS. PT EDUCATED ON USES OF HEAT AND ICE, AND ANTIINFLAMMATORY MEDICATIONS AT HOME. PT REPORTS THAT SHE WAS DISCHARGED WITH TORADOL FROM HER VISIT AT [facility] ON 09/05. PT REPORTS UNDERSTANDING OF INSTRUCTIONS AND DENIES REQUEST FOR FURTHER INTERVENTION AT THIS TIME.
== END 2023-09-07 15:52 | disposition home or self-care (01) ==
LOC: ED 15:25
PROVIDERS: Emergency Provider Emergency Medicine; PCP Family Medicine; Visit Provider Emergency Medicine
DX: Z03.89 Encounter for observation for other suspected diseases and conditions ruled out (principal); F31.9 Bipolar disorder, unspecified; F17.290 Nicotine dependence, other tobacco product, uncomplicated
CPT/HCPCS: 99282

== ENCOUNTER 2025-03-20 15:19 | Observation (INO) | payer SELFPAY ==
[2025-03-20 15:20] VITALS: BP 142/91; PULSE 93; RESP 14; TEMP 36.9; O2SAT 98; BMI 22.1
[2025-03-20] MEDS: 0.9% Normal Saline (1000mL) 1,000 ML 999 ML IV (15:44)
[2025-03-20 15:51] LABS: Hematocrit 39.1 % (37-47); Hemoglobin 13.7 g/dL (12.0-15.0); Immature Granulocytes Count 0.010 X10^3/uL (0.0-0.0); Mean Corp Hgb Conc 35.0 g/dL (32-36); Mean Corpuscular Volume 94.7 fL (81-99); Mean Platelet Vol. 10.7 fl (6.2-12.0); NRBC Flagged by Analyzer 0 % (0-5); Platelet Count 270 K/mm3 (150-450); RBC Distribution Width CV 12.1 % (11.6-14.6); RBC Distribution Width SD 42.5 fl (35.1-43.9); Red Blood Count 4.13 M/mm3 (4.2-5.4); White Blood Count 8.1 K/mm3 (4.4-11.0)
--- NOTE | 2025-03-20 15:51 | EDS_ITS ---
HPI History of Present Illness Chief Complaint: Abd Pain Narrative Narrative: Chief complaint and HPI: Lower abdominal pain. 29-year-old female with past medical history of bipolar disorder presents for evaluation of lower abdominal pain. Patient states for the past several days she has had lower abdominal pain. Abdominal pain radiates to her back. Associated symptom is nausea, decreased p.o. intake, and watery nonbloody diarrhea. She denies any fever, chills, shortness of breath, chest pain, constipation, dysuria, hematuria. States her last menstrual cycle was several days ago. Denies any history of abdominal surgeries. Patient was seen at urgent care prior to arrival in which she had a UA that was negative for UTI. She was transferred over to the emergency department for imaging. Review of systems: See HPI Medications: As listed on the chart Allergies: As listed on the chart PFSH: Per chart Vital signs: As listed on the chart. Reviewed. Physical exam: Gen: A&O x3, NAD Head: Normocephalic, atraumatic Eyes: No sclera icterus, conjunctiva clear ENT: Moist mucous membranes Neck: Trachea midline, No JVD CV: RRR, no murmurs, no peripheral edema Resp: Lungs CTA BL, no w/r/c GI: Abd soft, non-distended, tender to palpation in the bilateral lower quadrant, no rebound or rigidity Rectal: Normal external examination. Nonthrombosed external hemorrhoid. : No CVA tenderness Musc: Full ROM, no deformity Skin: Warm, dry Neuro: Alert, oriented, grossly intact, sensation intact Psych: Cooperative, appropriate mood and affect [facility] Medical History Bipolar disorder Home Medications ?Medication ?Instructions ?Recorded ?Last Taken ?Type acetaminophen 500 mg capsule 1,000 mg PO Q6H PRN fever or pain 03/20/25 03/20/25 History Allergy/AdvReac Type Severity Reaction Status Date / Time hydrocodone Allergy Mild Vomiting Verified 03/20/25 15:20 acetaminophen Allergy Vomiting Verified 03/20/25 15:20 gluten Allergy Vomiting Verified 03/20/25 15:20 hydromorphone (From Dilaudid) AdvReac Other Verified 03/20/25 20:01 Social History Smoking Status: Current every day smoker tobacco type: e-cigarettes substance use type: marijuana EXAM Physical Exam Const Vital Signs: 03/20/25 15:20 03/20/25 17:19 03/20/25 19:52 Temperature 98.4 F Temperature Source Oral Pulse Rate 93 69 73 Respiratory Rate 14 18 Blood Pressure 142/91 H 112/91 H 114/83 H Blood Pressure Mean 108 98 93 Pulse Ox 98 98 Oxygen Delivery Method Room Air Room Air MDM MDM MDM Narrative Medical decision making narrative: 29-year-old female with past medical history of bipolar disorder presents for evaluation of lower abdominal pain. Patient states for the past several days she has had lower abdominal pain. Abdominal pain radiates to her back. Associated symptom is nausea, decreased p.o. intake, and watery nonbloody diarrhea. Differential diagnosis includes but is not limited to viral gastroenteritis, colitis, appendicitis, electrolyte abnormality, urolithiasis, pancreatitis suspect less likely given she just had her menstrual cycle. Patient had a UA performed at urgent care. I was able to review the results, negative for UTI. NS bolus, morphine, Zofran ordered for symptoms. Abdominal pain workup ordered by CT abdomen pelvis. CBC without leukocytosis or anemia. CMP unremarkable. Lipase unremarkable. Serum negative. CT abdomen pelvis shows findings equivocal for acute appendicitis. Normal caliber appendix with mild adjacent fat stranding which may represent partial volume averaging or inflammation. Retroverted uterus. On reexamination, patient is still having severe abdominal pain which she describes as spasms despite morphine and Bentyl. She is tender diffusely in the left lower quadrant but worse on the right. Clinically not presenting like an acute appendicitis however given CT abdomen pelvis, Dr. Hdz with general surgery was contacted. He evaluated the patient. No concern for appendicitis at this time. Recommended stool studies and admission for pain control. Although I have low suspicion for ovarian torsion, this is in the differential although not consistent with the diarrhea however given the patient's pain will obtain transvaginal ultrasound to assess for torsion. Dilaudid ordered. Stool studies ordered. Transvaginal ultrasound negative for ovarian torsion. On reevaluation, patient still endorsing intestinal spasms. Also endorsing trismus. She is nauseous. Will give Reglan. Patient will warrant admission for pain control. I did reach out to Dr. Wang who is her GI specialist. Recommended Ativan. He states you can also use Haldol as well as an ergotamine. Ativan ordered. Patient discussed with hospitalist accepted admission. Impression: 1. Intractable abdominal pain 2. Diarrhea Lab Data Labs: Laboratory Results - last 24 hr 03/20/25 15:40 WBC 8.1 RBC 4.13 L Hgb 13.7 Hct 39.1 MCV 94.7 MCH 33.2 H MCHC 35.0 RDW Std Deviation 42.5 RDW Coeff of Cinthya 12.1 Plt Count 270 MPV 10.7 Immature Gran % (Auto) 0.100 Neut % (Auto) 59.1 Lymph % (Auto) 31.8 Brooks % (Auto) 6.4 Eos % (Auto) 1.9 Baso % (Auto) 0.7 Absolute Neuts (auto) 4.8 Absolute Lymphs (auto) 2.57 Nucleated RBC % 0 Sodium 139 Potassium 3.8 Chloride 104 Carbon Dioxide 23.3 Anion Gap 12 BUN 16 Creatinine 0.80 Estim Creat Clear Calc 86.61 Est GFR (MDRD) Non-Af 103 BUN/Creatinine Ratio 20.5 H Glucose 96 Calcium 9.8 Total Bilirubin 0.68 AST 15 ALT 13 Alkaline Phosphatase 56 Total Protein 8.0 Albumin 5.0 Globulin 3.0 Albumin/Globulin Ratio 1.7 Lipase 36 Serum , Qual NEGATIVE Radiography Diagnostic Testing: Clinical Impression(s) from Imaging Studies Abdomen/Pelvis CT 03/20/25 16:35 IMPRESSION: Findings equivocal for acute appendicitis. Reading Location: [facility] Transvaginal US 03/20/25 18:57 IMPRESSION: No evidence of ovarian torsion. Reading Location: [id number] Discharge Plan Triage Chief Complaint: Abd Pain ED Provider: Dalton Barbosa Dx/Rx/DC Orders Prescriptions: No Action acetaminophen 500 mg capsule 1,000 mg PO Q6H PRN (Reason: fever or pain) Primary Care Provider: Charly Nassar Referrals: Charly Nassar MD [Primary Care Provider] - Print Language: Bhutanese
[2025-03-20 16:24] LABS: Internal QC Validated? YES +Cl - CLEAR BKGD; Pregnancy, Serum, hCG Quali. NEGATIVE Negative; Record Kit Lot#, Serum Preg. 962302
--- NOTE | 2025-03-20 16:35 | CT_ITS ---
PROCEDURE: ABDOMEN/PELVIS W IV CONT ONLY 03/20/2025 REASON FOR EXAM: LOWER ABDOMINAL PAIN TECHNIQUE: ABDOMEN/PELVIS W IV CONT ONLY Coronal and Sagittal reconstruction series were provided. One or more dose reduction techniques were used (e.g., Automated exposure control, adjustment of the mA and/or kV according to patient size, use of iterative reconstruction technique. RADIATION DOSE SUMMARY: CTDlvol: 9+ 7 mGy DLP: 405 mGycm COMPARISON: 04/13/2021. FINDINGS: The lung bases are clear. The peripheral soft tissues unremarkable. No acute osseous abnormalities. Normal caliber abdominal aorta. No suspicious lymphadenopathy. The liver, gallbladder, spleen, pancreas, adrenals, and kidneys are unremarkable. Retroverted uterus. Normal caliber large and small bowel. Normal caliber appendix with mild adjacent fat stranding which may represent partial volume averaging or inflammation. CT/Abdomen/Pelvis W IV Cont ONLY IMPRESSION: Findings equivocal for acute appendicitis. Reading Location: [id number]
[2025-03-20 17:12] LABS: AST(SGOT) 15 U/L (<=31); Alanine Aminotransfer ALT/SGPT 13 U/L (<=34); Albumin, Serum 5.0 g/dL (3.5-5.0); Alkaline Phosphatase 56 U/L (35-104); Anion Gap 12 (5-15); BUN 16 mg/dL (4-19); BUN/Creat Ratio 20.5 RATIO (10-20); Calcium,Total 9.8 mg/dL (7.6-11.0); Carbon Dioxide 23.3 mmol/L (21.0-32.0); Chloride 104 mmol/L (98-108); Estimated Creatinine Clearance 86.61 ml/min (50-250); Globulin 3.0 g/dL (2.2-4.2); Glucose 96 mg/dL (70-99); Lipase 36 U/L (13-75); Potassium 3.8 mmol/L (3.3-5.1)
[2025-03-20 17:19] VITALS: BP 112/91; PULSE 69
--- NOTE | 2025-03-20 18:54 | CON.PCM.SX_ITS ---
Assessment & Plan Assessment/Plan (1) Abdominal pain: PLAN: The patient is having abdominal pain. I was called to see the patient because her CT scan said equivocal for acute appendicitis. I do not believe the patient has acute appendicitis. She does not have any migration of pain and it has been 3 days and her white count is still normal with no left shift. She is not having any vomiting. She denies fevers or anorexia. The pain is also intermittent which would not be the case with appendicitis. No surgical intervention at this time. Master Hdz MD Pager: [facility] [address] [place] [address] Outpatient [place], [address] [place] [address] Office: HPI Consult Data Date of Consult: 03/20/25 HPI Narrative HPI Narrative: EMI GALINDO, is a 29 F who presents with abdominal pain. Patient reports she been having abdominal pain and cramping for 3 days as well as diarrhea. She has been having nausea but no vomiting. She denies fevers or chills. She has been tolerating a diet. She reports the pain is in the lower abdomen. She denies fevers. She says the pain comes and goes in waves. She says it radiates to the back. [facility] Medical History Bipolar disorder Home Medications ?Medication ?Instructions ?Recorded ?Last Taken ?Type acetaminophen 500 mg capsule 1,000 mg PO Q6H PRN fever or pain 03/20/25 03/20/25 History Allergy/AdvReac Type Severity Reaction Status Date / Time hydrocodone Allergy Mild Vomiting Verified 03/20/25 15:20 acetaminophen Allergy Vomiting Verified 03/20/25 15:20 gluten Allergy Vomiting Verified 03/20/25 15:20 Social History Smoking Status: Current every day smoker tobacco type: e-cigarettes substance use type: marijuana Physical Exam Const alert and oriented x3 HEENT normocephalic Eyes PERRL Chest inspection of chest normal Resp normal respiratory effort Cardio Rate: regular rate Rhythm: regular rhythm GI soft to palpation Inspection: Negative for abdominal distention Palpation: tender LLQ and RLQ Lab / Micro Data 03/20/25 15:40 03/20/25 15:40 Labs: Laboratory Results - last 24 hr 03/20/25 15:40: WBC 8.1, RBC 4.13 L, Hgb 13.7, Hct 39.1, MCV 94.7, MCH 33.2 H, MCHC 35.0, RDW Std Deviation 42.5, RDW Coeff of Cinthya 12.1, Plt Count 270, MPV 10.7, Immature Gran % (Auto) 0.100, Neut % (Auto) 59.1, Lymph % (Auto) 31.8, Mccone % (Auto) 6.4, Eos % (Auto) 1.9, Baso % (Auto) 0.7, Absolute Neuts (auto) 4.8, Absolute Lymphs (auto) 2.57, Nucleated RBC % 0, Sodium 139, Potassium 3.8, Chloride 104, Carbon Dioxide 23.3, Anion Gap 12, BUN 16, Creatinine 0.80, Estim Creat Clear Calc 86.61, Est GFR (MDRD) Non-Af 103, BUN/Creatinine Ratio 20.5 H, Glucose 96, Calcium 9.8, Total Bilirubin 0.68, AST 15, ALT 13, Alkaline Phosphatase 56, Total Protein 8.0, Albumin 5.0, Globulin 3.0, Albumin/Globulin Ratio 1.7, Lipase 36, Serum , Qual NEGATIVE Imaging Radiology Impression Abdomen/Pelvis CT 03/20/25 16:35 IMPRESSION: Findings equivocal for acute appendicitis. Reading Location: [id number]
--- NOTE | 2025-03-20 18:57 | US_ITS ---
EXAM: US Pelvis Transvaginal CLINICAL INDICATION: RULE OUT OVARIAN TORSION TECHNIQUE: Real-time transvaginal pelvic ultrasound with image documentation. Transvaginal imaging was used for better evaluation of the endometrium and adnexa. COMPARISON: No relevant prior studies available. FINDINGS: UTERUS/CERVIX: Unremarkable. Normal endometrial stripe thickness. No myometrial mass. The uterus measures 6.4 x 4.8 x 3.6 cm. RIGHT OVARY: Unremarkable. Normal blood flow. The right ovary measures 2.2 x 2.6 x 1.7 cm. LEFT OVARY: Unremarkable. Normal blood flow. The left ovary measures 2.9 x 1.8 x 1.3 cm. FREE FLUID: No free fluid. BLADDER: Empty bladder which cannot be evaluated with this probe. US/Transvaginal Non- IMPRESSION: No evidence of ovarian torsion. Reading Location: [facility]
[2025-03-20 19:52] VITALS: BP 114/83; PULSE 73; RESP 18; O2SAT 98
--- NOTE | 2025-03-20 21:21 | HP.PCM.HOS_ITS ---
[facility] - General General Date of Admission: 03/20/25 Date of Service: 03/20/25 Chief Complaint: Abdominal Pain, Nausea, Vomiting and Watery Diarrhea. HPI Narrative EMI GALINDO, is a 29 F with a past medical history of bipolar disorder, tobacco abuse and cannabis abuse who presents to [facility] ER complaining of abdominal pain. Ms. Galindo reports her symptoms began approximately ~3-4 days prior to admission with the abrupt-onset of severe, intermittent cramping, spasm-like abdominal pain that is focused in her lower abdomen and radiates into her back. She also admits to severe nausea with decreased oral intake and watery-diarrhea. She denies associated fever, chills, SOB, chest pain, palpitations, heart racing, lower extremity edema, dysuria, hematuria, headache, rash, recent antibiotics, recent travel, known sick contacts or similar previous episodes. She was seen at Urgent Care prior to arrival in the ER with a UA negative for infection with patient transferred to ER for imaging studies. In the ER she underwent a CT scan of the abdomen and pelvis that revealed finding equivocal for acute appendicitis in addition to a transvaginal ultrasound that revealed no evidence of ovarian torsion. She was then evaluated by the general surgeon on-call who did not think patient had acute appendicitis with call then made by ER physician to hospitalist service to admit for intractable abdominal pain after treatment with IV morphine, IV metoclopramide, IV lorazepam and IV hydromorphone in addition to multiple doses of IV ondansetron plus one dose of IV dicyclomine. She was then admitted to the general medical floor under observation status for ongoing care for a stay that is expected to be less than [address] [facility] Medical History Bipolar disorder Home Medications ?Medication ?Instructions ?Recorded ?Last Taken ?Type acetaminophen 500 mg capsule 1,000 mg PO Q6H PRN fever or pain 03/20/25 03/20/25 History Allergy/AdvReac Type Severity Reaction Status Date / Time hydrocodone Allergy Mild Vomiting Verified 03/20/25 15:20 acetaminophen Allergy Vomiting Verified 03/20/25 15:20 gluten Allergy Vomiting Verified 03/20/25 15:20 hydromorphone (From Dilaudid) AdvReac Other Verified 03/20/25 20:01 Social History Smoking Status: Current every day smoker tobacco type: e-cigarettes substance use type: marijuana ROS ROS Narrative Review of Systems: Constitutional: Patient denies fever or chills. Eyes: Patient denies changes in vision or discharge from eyes. ENT: Patient denies runny nose, sore throat or ear pain. Resp: Patient denies SOB or cough. CV: Patient denies chest pain, palpitations, heart racing or LE edema. GI: Patient admits to severe lower abdominal pain radiating into her back with watery diarrhea and intractable nausea as per HPI. : Patient denies dysuria or hematuria. MSK: Patient denies arthralgias or myalgias. Skin: Patient denies rash, abscess, wounds or jaundice. Psych: Patient denies symptoms of uncontrolled depression or anxiety. Neuro: Patient denies headache, paresthesias or focal neurologic deficits. Allergy: Patient denies lip swelling, tongue swelling or urticaria. Hematology: Patient denies easy bleeding or easy bruisability. Endocrinology: Patient denies polyuria, polydipsia, polyphagia or heat/cold intolerance. 14 point ROS otherwise negative except for positives noted above in HPI. Vital Signs Vital Signs Vital Signs: 03/20/25 15:20 03/20/25 17:19 03/20/25 19:52 Temperature 98.4 F Temperature Source Oral Pulse Rate 93 69 73 Respiratory Rate 14 18 Blood Pressure 142/91 H 112/91 H 114/83 H Blood Pressure Mean 108 98 93 Pulse Ox 98 98 Oxygen Delivery Method Room Air Room Air Weight Weight: 125 lb Body Mass Index (BMI) 22.1 Physical Exam Const alert, oriented x3 and average body habitus Constitutional Narrative: Patient in acute distress with severe abdominal pain. General Appearance: cooperative HEENT normocephalic, head/scalp atraumatic, hearing grossly normal bilaterally and moist oral mucous membranes Eyes PERRL, EOMs intact bilaterally and conjunctivae normal Neck no lymphadenopathy, supple and no JVD Resp normal respiratory effort, no retractions, no use of accessory muscles and clear to auscultation bilaterally Cardio regular rate and regular rhythm GI soft to palpation and non-distended GI Narrative: Patient TTP in lower abdomen without guarding or rebound. Extremity normal to inspection, full ROM and no clubbing, cyanosis or edema Skin Skin Narrative: Patient has no evidence of rash, abscess, wounds or jaundice. Neuro oriented x3, CN's II-XII intact bilaterally, moves all extremities and no focal motor deficits Sensorium / Orientation: awake, alert, oriented to person, oriented to place and oriented to time Speech: speech normal Psych affect normal Results Medical Records Data Attestation: I reviewed the patient's medical records Lab / Micro Data Attestation: I reviewed the patient's lab results. 03/20/25 15:40 03/20/25 15:40 Labs: Laboratory Results - last 24 hr 03/20/25 15:40: WBC 8.1, RBC 4.13 L, Hgb 13.7, Hct 39.1, MCV 94.7, MCH 33.2 H, MCHC 35.0, RDW Std Deviation 42.5, RDW Coeff of Cinthya 12.1, Plt Count 270, MPV 10.7, Immature Gran % (Auto) 0.100, Neut % (Auto) 59.1, Lymph % (Auto) 31.8, [place] % (Auto) 6.4, Eos % (Auto) 1.9, Baso % (Auto) 0.7, Absolute Neuts (auto) 4.8, Absolute Lymphs (auto) 2.57, Nucleated RBC % 0, Sodium 139, Potassium 3.8, Chloride 104, Carbon Dioxide 23.3, Anion Gap 12, BUN 16, Creatinine 0.80, Estim Creat Clear Calc 86.61, Est GFR (MDRD) Non-Af 103, BUN/Creatinine Ratio 20.5 H, Glucose 96, Calcium 9.8, Total Bilirubin 0.68, AST 15, ALT 13, Alkaline Phosphatase 56, Total Protein 8.0, Albumin 5.0, Globulin 3.0, Albumin/Globulin Ratio 1.7, Lipase 36, Serum , Qual NEGATIVE Imaging Radiology Impression Abdomen/Pelvis CT 03/20/25 16:35 IMPRESSION: Findings equivocal for acute appendicitis. Reading Location: [id number] Transvaginal US 03/20/25 18:57 IMPRESSION: No evidence of ovarian torsion. Reading Location: [facility] Assessment & Plan Assessment/Plan (1) Intractable abdominal pain: (2) Intractable nausea and vomiting: (3) Watery diarrhea: (4) Bipolar disorder: QUALIFIERS: Active/Remission status: remission status unspecified Qualified Code(s): F31.9 - Bipolar disorder, unspecified (5) Tobacco abuse: (6) Cannabis abuse: PLAN: Plan 1. CT scan of the abdomen and pelvis that revealed finding equivocal for acute appendicitis with Intractable Abdominal Pain with Intractable Nausea and Vomiting - Admit to general medical floor under observation status. Start empiric IV piperacillin-tazobactam in case of underlying infection. Give pantoprazole 40 mg IV daily. Give ondansetron IV prn for nausea and vomiting. Give promethazine IM for breakthrough nausea and place scopolamine patch. Keep NPO for now. Give ketorolac IV prn for [id number] (level 1-5/10) pain or fever. Give morphine IV prn for severe (level 6-10/10) pain after panic attack attributed to hydromorphone. Finally, we will consult oreman on- call to see this patient on-rounds in the AM for further recommendations with help appreciated in advance. 2. Watery Diarrhea complicating #1 - Check stool studies and place on enteric precautions. 3. Bipolar disorder; currently not on treatment - Apparently stable. 4. Tobacco abuse - Tobacco Cessation will be strongly encouraged with Nicotine patch offered to control cravings. 5. Cannabis abuse - Cannabis Cessation will be strongly encouraged. 6. DVT/GI prophylaxis - Enoxaparin 40 mg sq daily plus SCD's. Pantoprazole 40 mg IV daily. Total time: Approximately (but not less than) 55 minutes. Charges/Coding Visit Charges Inpatient E&M: 36648 Init Hosp L2
--- OUTSIDE RECORDS SUMMARY | 2025-03-20 21:22 | XMS RPT_ITS | CCD ---
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 Nicotine, Flavoring Devices: [...] skin retraction. Allergies and current medication updated:Yes SENSITIVE EXAM: The sensitive examination was discussed with the Patient or Patient's Authorized Bank Teller Machine Mechanic. As applicable, any other physician, advance practice provider, medical student, or other health professional student that will be observing or involved in the sensitive examination for educational or training purposes was discussed with the Patient or Authorized Bank Teller Machine Mechanic. The Patient or Authorized Bank Teller Machine Mechanic has agreed to proceed with the sensitive examination. (Sensitive examination includes inspection and/or palpation of the breasts, pelvis, prostate and anorectal regions). EXAM: BP 106/64 Ht 5' 3 (1.60m) Wt 128 lb (58.1kg) LMP 06/13/2024 BMI 22.68 kg/(m2). GENERAL: pleasant, female in no apparent distress HEENT: Normocephalic, atraumatic, mucus membranes moist, and no lesions NECK: Supple, full range of motion, no adenopathy, and thyroid normal DERMATOLOGY: Normal, without lesions, non-icteric, and non-hirsute BREAST: soft, non-tender, symmetric, no dominant mass, normal nipple-areolar complex, no lymphadenopathy, and no nipple discharge + fibrocystic bilaterally CHEST: Normal inspiratory effort ABDOMEN: soft, non-tender, and no masses PELVIC: external genitalia normal, normal Bartholin's glands, urethra, Starke's glands, no vulvar lesions, no cervical lesions, + stage 1 rectocele, physiologic discharge present, normal appearing perineal body and perianal region + scars consistent with HS BIMANUAL: uterus normal size, shape and consistency, no adnexal masses, and non-tender RECTOVAGINAL: deferred. NEURO: alert and oriented x3,exam grossly non-focal EXTREMITIES: normal ASSESSMENT/PLAN: 1) Health maintenance: Pap up to date 2022. Deferred until 2025. Mammogram starting age 40. Nutrition, exercise and routine health maintenance exams reviewed. Smoking cessation: Smoking cessation encouraged and resources provided. HPV vaccine: completed series 2) Contraception: none. Taking PNV and would accep (more content not included)... Normal [facility] HBV surface Ag Ser Qlon HBV surface Ag Ql (S) Negative Normal Negative [facility] Comment on above: Order Comment: Speci men Type: BLOOD SPECIMENOrdering Facility: [facility] Address: [address] [place] [address] Performed By: #### 7 3752-8, 74803-6, 5195-3 ####[facility] LABCLIA [id number] [place] [address] [place] HCV Ab Ser Qlon 07-11-2024 HCV Ab Ql (S) Negative Normal Negative [facility] Comment on above: Order Comment: Speci men Type: BLOOD SPECIMENOrdering Facility: [facility] Address: [address] [place] [address] Result Comment: The result suggests no evidence of active infection with Hepatitis C virus. Should recent infection be suspected, repeat testing may be considered 4-6 weeks after this draw. Performed By: #### 1 6128-1 ####[facility] LABCLIA [id number] [place] [address] [place] HIV 1+2 Ab IA Qlon HIV 1 and 2 Ab IA.rapid Nom (S/P/Bld) Normal [facility] Comment on above: Order Comment: Speci men Type: BLOOD SPECIMENOrdering Facility: [facility] Address: [address] [place] [address] Result Comment: Test not indicated. Performed By: #### 7 3752-8, 91989-1, 5195-3 ####[facility] LABIA [id number] [place] [address] [place] HIV 1+2 Ab+HIV1 p24 Ag IA Ql Non-Reactive Normal Nonreactive [facility] Comment on above: Order Comment: Speci men Type: BLOOD SPECIMENOrdering Facility: [facility] Address: [address] [place] [address] Performed By: #### 7 3752-8, 38362-6, 5195-3 ####[facility] [id number] [place] [address] [place] HIV immunoassay testing algorithm interpretation (S/P/Bld) [Interp] Normal [facility] Comment on above: Order Comment: Speci men Type: BLOOD SPECIMENOrdering Facility: [facility] Address: [address] [place] [address] Result Comment: No e vidence of HIV-1 or HIV-2 infection. Should recent infection be suspected, repeat testing may be considered 2-3 weeks after this draw. [place] Rev. Code 3701.243(E): This information has been disclosed to you from confidential records protected from disclosure by state law. ???You shall make no further disclosure of this information without the specific, written, and informed release of the individual to whom it pertains or as otherwise permitted by state law. A general authorization for the release of medical or other information is not sufficient for the purpose of the release of HIV test results or diagnoses. Performed By: #### 7 3752-8, 88031-0, 5195-3 ####[facility] [id number] [place] [address] [place] Reagin and Treponema pallidu m IgG and IgM [Interp]on 07-11-2024 T. pallidum IgG+IgM IA Ql (S) Non-Reactive Normal Nonreactive [facility] Comment on above: Order Comment: Speci men Type: BLOOD SPECIMENOrdering Facility: [facility] Address: [address] [place] [address] Performed By: #### 7 3752-8, 49801-4, 5195-3 ####[facility] [id number] [place] [id number] [place] Reagin+T pallidum IgG+IgM Se rPl-Impon 07-11-2024 Reagin and Treponema pallidum IgG and IgM [Interp] Cannot exclude recent Treponemal infection if specimen collected within 7-10 days after appearance of suspect lesions or 2-3 weeks after an exposure. Clinical correlation is required. Normal [facility] Comment on above: Order Comment: Speci men Type: BLOOD SPECIMENOrdering Facility: [facility] Address: [address] [place] [address] Performed By: #### 7 3752-8, 47703-6, 5195-3 ####[facility] LABCLIA [id number] [address] [place] TRICHOMONAS VAGINALIS NAATon 07-11-2024 T. vaginalis DNA GABRIEL+probe Ql (Unsp spec) Not detected Normal Not detected [facility] Comment on above: Order Comment: Speci men Type: SWABOrdering Facility: [facility] Address: [address] [place] [address] Performed By: #### 3 6902-5, TRVAMP ####[facility] LABCLIA [id number] [address] [place] CNPNon 10-19-2023 CNPN Telephone (WIQ) KO GALINDO ([id number]) 1995 F Date Time Provider Department 10/19/23 YEHUDA COTTON WIQ During your visit today, we recorded the following information about you: [facility] 10/19/2023 8:43 AM Signed Smoking Cessation Navigation Outcome of contact: Left Message Comments: A voicemail has been left for this patient regarding Tobacco Cessation support options. If this patient has any further questions they can email us at or call us at [phone]. [employer] Commercial Painter/Smoking Cessation Navigator: [facility] Allergies As of Date: 10/19/2023 Noted Allergy Reaction GLUTEN 04/03/2023 7 - Swelling 11 - Vomiting HYDROCODONE 05/14/2015 11 - Vomiting ZOLOFT (SERTRALINE HCL) 08/24/2018 8 - GI Upset Date Reviewed: 10/13/2023 Reviewed by: Casie Boone LPN - Fully Assessed Reason for Visit: Smoking Cessation [1387] Prescriptions as of 10/19/2023 - busPIRone (BUSPAR) 7.5 mg tablet Take 1 tablet by mouth two times a day. - acetaminophen (TYLENOL EXTRA STRENGTH) 500 mg tablet Take 2 tablets by mouth every 8 hours as needed for pain. Two (2) X 500 mg tablets = 1,000 mg - omeprazole (PRILOSEC) 40 mg capsule Take 1 capsule by mouth once daily. - lamoTRIgine (LAMICTAL) 100 mg tablet Take 100 mg by mouth once daily. - hydrOXYzine HCl (ATARAX) 50 mg tablet Take 50 mg by mouth three times daily as needed. - ondansetron (ZOFRAN) 4 mg tablet Take 4 mg by mouth every 6 hours as needed. - prazosin (MINIPRESS) 1 mg cap Take 1 mg by mouth as needed. At bedtime as needed - traZODone (DESYREL) 50 mg tablet TAKE 1 AND 1/2 (ONE AND ONE-HALF) TABLETS BY MOUTH AT BEDTIME NEEDED FOR INSOMNIA - Magnesium 30 mg tablet Take by mouth. - multivit with iron,minerals (MULTIVITAMIN AND MINERALS ORAL) Take by mouth. - Loperamide HCl (IMODIUM) 2 mg tab Take 1/2 to one full tablet each morning. - benztropine (COGENTIN) 0.5 mg tablet Take 0.5 mg by mouth as needed. Patient reports once daily as needed - ondansetron orally disintegrating (ZOFRAN ODT) 4 mg disintegrating tablet Take 1 tablet by mouth every 6 hours as needed for Nausea/Vomiting. Problem List As Of Date 10/19/2023 Noted Resolved Dysmenorrhea [N94.6] 09/08/2013 Fracture, tibial plateau [S82.143A] 10/02/2015 PCL injury [S89.90XA] 10/02/2015 PFD (patellofemoral disorder) [M22.2X9] 11/19/2015 Hirsutism [L68.0] 04/08/2017 Bulimia nervosa [F50.2] 04/08/2017 Overweight (BMI 25.0-29.9) [E66.3] Abdominal pain [R10.9] 04/24/2023 Dysphagia [R13.10] 04/24/2023 Gastroesophageal reflux disease [K21.9] 04/24/2023 Nausea and vomiting [R11.2] 04/24/2023 Anxiety [F41.9] 07/07/2023 Bipolar disorder (HCC) [F31.9] 07/07/2023 Stiffness of finger joint of right hand [M25.64*08/21/2023 Right hand pain [M79.641] 08/21/2023 Right hand weakness [R29.898] 08/21/2023 Encounter Status:Closed by YEHUDA COTTON on 10/19/23 [facility] CNOVon 10-13-2023 CNOV Office Visit (ELTONWS ) KO GALINDO ([id number]) 1995 F Date Time Provider Department 10/13/23 7:20 AM JOHANNY STAUFFER During your visit today, we recorded the following information about you: Pulse Respiration Blood pressure Weight 72/minute 18/minute 108/72 57.7 kg Height 1.615 m Johanny Stauffer APRN.CALL WORKER 10/13/2023 9:04 AM Addendum 10/13/2023 Patient presents with: Physical SUBJECTIVE: This is a 28 year old that is here today for Above Complaints. ANXIETY/DEPRESSION/Bip olar: follows with Dr. Christensen at the counseling center. Follows every three months. Taking medications as prescribed without side effects. No new medication changes. Denies SI, HI or insomnia Tattoo two weeks a go to left lower leg. Has noticed some redness around area. Mild pain to area. No drainage. Denies fevers, chills or red streaking GERD: taking omeprazole as prescribed without side effects. Denies breakthrough symptoms Vapes disposable cartridges- one cartridge lasts about one week. Has tried to quit before but felt it made her blood pressure spike. Would like information on quitting PAST MEDICAL HISTORY Diagnosis Date Anxiety Bipolar disorder ([facility]) counseling center Broken leg 08/2014 Left Leg Deliberate self-cutting history of Depression GERD (gastroesophageal reflux disease) History of bulimia ALLERGIES Gluten, Hydrocodone, and Zoloft [Sertraline Hcl] MEDICATIONS Current Outpatient Medications Medication Sig busPIRone (BUSPAR) 7.5 mg tablet Take 1 tablet by mouth two times a day. acetaminophen (TYLENOL EXTRA STRENGTH) 500 mg tablet Take 2 tablets by mouth every 8 hours as needed for pain. Two (2) X 500 mg tablets = 1,000 mg omeprazole (PRILOSEC) 40 mg capsule Take 1 [...] needed for Nausea/Vomiting. No current facility-administered medications for this visit. Medications and allergies reviewed by this provider. SOCIAL HISTORY Social History Tobacco Use Smoking status: Former Packs/day: 1.00 Years: 6.00 Additional pack years: 0.00 Total pack years: 6.00 Types: Cigarettes Quit date: 2020 Years since quittin.1 Smokeless tobacco: Current Tobacco comments: vapes Vaping Use Vaping Use: current everyday user Substances: Nicotine, Flavoring Devices: Disposable Substance Use Topics Alcohol use: Never Drug use: Yes Types: Marijuana REVIEW OF SYSTEMS GENERAL: No weight loss, malaise or fevers HEENT: Negative for frequent or significant headaches, No changes in hearing or vision, no nose bleeds or other nasal problems NECK: Negative for lumps, goiter, pain and significant neck swelling RESPIRATORY: Negative for cough, hemoptysis, wheezing, COPD, dyspnea or shortness of breath CARDIOVASCULAR: Negative for chest pain, leg swelling, hypertension, CHF or palpitations GI: No nausea, vomiting, or diarrhea : No history of dysuria, frequency or incontinence PRACTICAL NURSE CLINICAL COORDINATOR: Negative for abnormal vaginal bleeding, abnormal vaginal discharge MUSCULOSKELETAL: Negative for joint pain or swelling, back pain or muscle pain SKIN: See HPI PSYCH: See HPI HEMATOLOGY/LYMPHOLOGY: Negative for prolonged bleeding, bruising easily or swollen nodes ENDOCRINE: Negative for cold or heat intolerance, polyuria, polydipsia and goiter. Feels cold often NEURO: No history of headaches, syncope, paralysis, seizures or tremors All other reviewed and negative other than HPI. OBJECTIVE: BP 108/72 Pulse 72 Resp 18 Ht 161.5 cm (5' 3.58) Wt 57.7 kg (127 lb 3.2 oz) LMP 06/19/2023 (Approximate) SpO2 96% BMI 22.12 kg/m? . Vital signs reviewed by this provider. APPEARANCE Well appearing, alert, in no acute distress, well-hydrated, well nourished. EYES conjunctiva and sclera normal. EARS External ears normal, canals clear NECK Supple, no adenopathy; thyroid symmetric, normal size, no bruits HEART RRR with normal S1 and S2, no murmurs, no gallops, no JVD appreciated LUNG clear to auscultation. No wheezes, rhonc (more content not included)... Normal [facility] [place] 10-13-2023 CNPN Telephone (FAMPWS) KO GALINDO ([id number]) 1995 F Date Time Provider Department 10/13/23 MILADIS NASSAR During your visit today, we recorded the following information about you: Michelle Sommer LPN 10/13/2023 8:33 AM Signed Called [facility] and left a message to cancel prescription Buspirone 7.5 mg because pt was getting from [facility] local pharmacy. Michelle Sommer LPN Allergies As of Date: 10/13/2023 Noted Allergy Reaction GLUTEN 04/03/2023 7 - Swelling 11 - Vomiting HYDROCODONE 05/14/2015 11 - Vomiting ZOLOFT (SERTRALINE HCL) 08/24/2018 8 - GI Upset Date Reviewed: 10/13/2023 Reviewed by: Casie Boone LPN - Fully Assessed Reason for Visit: Pharmacy notified [Other] Prescriptions as of 10/13/2023 - busPIRone (BUSPAR) 7.5 mg tablet Take 1 tablet by mouth two times a day. - cephALEXin (KEFLEX) 500 mg capsule Take 1 capsule by mouth three times a day for 5 days. - acetaminophen (TYLENOL EXTRA STRENGTH) 500 mg tablet Take 2 tablets by mouth every 8 hours as needed for pain. Two (2) X 500 mg tablets = 1,000 mg - omeprazole (PRILOSEC) 40 mg capsule Take 1 capsule by mouth once daily. - lamoTRIgine (LAMICTAL) 100 mg tablet Take 100 mg by mouth once daily. - hydrOXYzine HCl (ATARAX) 50 mg tablet Take 50 mg by mouth three times daily as needed. - ondansetron (ZOFRAN) 4 mg tablet Take 4 mg by mouth every 6 hours as needed. - prazosin (MINIPRESS) 1 mg cap Take 1 mg by mouth as needed. At bedtime as needed - traZODone (DESYREL) 50 mg tablet TAKE 1 AND 1/2 (ONE AND ONE-HALF) TABLETS BY MOUTH AT BEDTIME NEEDED FOR INSOMNIA - Magnesium 30 mg tablet Take by mouth. - multivit with iron,minerals (MULTIVITAMIN AND MINERALS ORAL) Take by mouth. - Loperamide HCl (IMODIUM) 2 mg tab Take 1/2 to one full tablet each morning. - benztropine (COGENTIN) 0.5 mg tablet Take 0.5 mg by mouth as needed. Patient reports once daily as needed - ondansetron orally disintegrating (ZOFRAN ODT) 4 mg disintegrating tablet Take 1 tablet by mouth every 6 hours as needed for Nausea/Vomiting. Problem List As Of Date 10/13/2023 Noted Resolved Dysmenorrhea [N94.6] 09/08/2013 Fracture, tibial plateau [S82.143A] 10/02/2015 PCL injury [S89.90XA] 10/02/2015 PFD (patellofemoral disorder) [M22.2X9] 11/19/2015 Hirsutism [L68.0] 04/08/2017 Bulimia nervosa [F50.2] 04/08/2017 Overweight (BMI 25.0-29.9) [E66.3] Abdominal pain [R10.9] 04/24/2023 Dysphagia [R13.10] 04/24/2023 Gastroesophageal reflux disease [K21.9] 04/24/2023 Nausea and vomiting [R11.2] 04/24/2023 Anxiety [F41.9] 07/07/2023 Bipolar disorder (HCC) [F31.9] 07/07/2023 Stiffness of finger joint of right hand [M25.64*08/21/2023 Right hand pain [M79.641] 08/21/2023 Right hand weakness [R29.898] 08/21/2023 Encounter Status:Closed by MICHELLE SOMMER on 10/13/23 Normal [facility] CNOVon 09-08-2023 CNOV Office Visit (FAMPWS ) KO GALINDO ([id number]) 1995 F Date Time Provider Department 09/08/23 8:20 AM MILADIS NASSAR During your visit today, we recorded the following information about you: Pulse Respiration Blood pressure Weight 103/minute 16/minute 126/88 57.2 kg Miladis Nassar MD 09/08/2023 9:26 AM Signed Chief Complaint Patient presents with: ER F/U HPI Ko Galindo is a 28 year old female who presents here today for ER follow up. Patient evaluated at [facility] ED on 09/07 for copmlaint of lump on her left lower rib cage. Had apparently been evaluated at [facility] ER on 09/[address] scan which did not show any mass. Denied injury or trauma. Physical exam in the ER was negative for mass or deformity to rib cage. No further imaging obtained. Recommended f/u with our office in 1 week. Today, patient maintains that she has a lump on the left side of her chest with intermittent stabbing/aching pain in her left axilla and across her chest. Typically lasts a few seconds. Occurs randomly. Nothing seems to trigger the pain. Denies exacerbating factors. Treating with ibuprofen and tylenol PRN which does help with pain. Notes that she had fracture to her right hand recently and has been using her left arm more. Denies fever, cough, SOB, wheezing, leg swelling, palpitations. Feels like symptoms are worsening. Reviewed lab results from [facility] on 09/05 which showed low potassium at 3.2. patient states her potassium was replaced at that time. Will need recheck today.CBC and CMP unremarkable otherwise. Noted recent weight loss. Patient denies bulimia at this time and is following up with psychiatry. Thinks medications may be effecting her appetite and is still worried about gaining weight. Past medical history, appointments, medications, allergies reviewed. Previous Medical History PAST MEDICAL HISTORY Diagnosis Date Anxiety Bipolar disorder ([facility]) counseling center Broken leg 08/2014 Left Leg Deliberate self-cutting history of Depression GERD (gastroesophageal reflux disease) History of bulimia Overweight (BMI 25.0-29.9) Previous Surgical History PAST SURGICAL HISTORY Procedure Laterality Date COLONOSCOPY FLX DX W/COLLJ SPEC WHEN PFRMD 04/12/2019 Colonoscopy EGD 04/24/2023 ESOPHAGOGASTRODUODENOS COPY TRANSORAL DIAGNOSTIC 04/12/2019 EGD FRACTURE SURGERY PAST SURGICAL HISTORY OF 09/2014 Left Knee, pins placed Family History FAMILY HISTORY Problem Relation Age of Onset None Mother Psychiatry Mother bipolar other (endometriosis) Mother anxiety with OCPs/MARY Psychiatry Father anxiety Diabetes Father Psychiatry Sister bipolar other (endometriosis) Sister Psychiatry Brother bipolar Psychiatry Maternal Grandmother other (Liver Failure) Maternal Grandmother Patient Allergies ALLERGIES Allergen Reactions Gluten Swelling, Vomiting Hydrocodone Vomiting Zoloft [Sertraline * GI Upset Current Medications Current Outpatient Medications on File Prior to Visit Medication Sig busPIRone (BUSPAR) 7.5 mg tablet Take 1 tablet by mouth two times a day. acetaminophen (TYLENOL EXTRA STRENGTH) 500 mg tablet Take 2 tablets by mouth every 8 hours as needed for pain. Two (2) X 500 mg tablets = 1,000 mg omeprazole (PRILOSEC) 40 mg capsule Take 1 [...] History Social History Tobacco Use Smoking status: Former Packs/day: 1.00 Years: 6.00 Additional pack years: 0.00 Total pack years: 6.00 Types: Cigarettes Quit date: 2020 Years since quittin.0 Smokeless tobacco: Current Tobacco comments: vapes Vaping Use Vaping Use: current everyday user Substances: Nicotine, Flavoring Devices: Disposable Substance Use Topics Alcohol use: Never Drug use: Yes Types: Marijuana Review of Symptoms REVIEW OF SYSTEMS See HPI EXAM: BP 126/88 (more content not included)... [facility]AL[facility] ([id number]) 1995 F Date Time Provider Department 09/08/23 MILADIS NASSAR During your visit today, we recorded the following information about you: Jessie Kelly LPN 09/08/2023 7:08 PM Signed ----- Message from Miladis Nassar MD sent at 09/08/2023 6:54 PM EST ----- Repeat potassium level and thyroid testing normal. No changes to regimen. Jessie Kelly LPN 09/08/2023 7:09 PM Signed Phoned patient and reviewed provider's message with her. Patient voiced understanding. Allergies As of Date: 09/08/2023 Noted Allergy Reaction GLUTEN 04/03/2023 7 - Swelling 11 - Vomiting HYDROCODONE 05/14/2015 11 - Vomiting ZOLOFT (SERTRALINE HCL) 08/24/2018 8 - GI Upset Date Reviewed: 09/08/2023 Reviewed by: Casie Boone LPN - Fully Assessed Prescriptions as of 09/08/2023 - busPIRone (BUSPAR) 7.5 mg tablet Take 1 tablet by mouth two times a day. - acetaminophen (TYLENOL EXTRA STRENGTH) 500 mg tablet Take 2 tablets by mouth every 8 hours as needed for pain. Two (2) X 500 mg tablets = 1,000 mg - omeprazole (PRILOSEC) 40 mg capsule Take 1 capsule by mouth once daily. - lamoTRIgine (LAMICTAL) 100 mg tablet Take 100 mg by mouth once daily. - hydrOXYzine HCl (ATARAX) 50 mg tablet Take 50 mg by mouth three times daily as needed. - ondansetron (ZOFRAN) 4 mg tablet Take 4 mg by mouth every 6 hours as needed. - prazosin (MINIPRESS) 1 mg cap Take 1 mg by mouth as needed. At bedtime as needed - traZODone (DESYREL) 50 mg tablet TAKE 1 AND 1/2 (ONE AND ONE-HALF) TABLETS BY MOUTH AT BEDTIME NEEDED FOR INSOMNIA - Magnesium 30 mg tablet Take by mouth. - multivit with iron,minerals (MULTIVITAMIN AND MINERALS ORAL) Take by mouth. - Loperamide HCl (IMODIUM) 2 mg tab Take 1/2 to one full tablet each morning. - benztropine (COGENTIN) 0.5 mg tablet Take 0.5 mg by mouth as needed. Patient reports once daily as needed - ondansetron orally disintegrating (ZOFRAN ODT) 4 mg disintegrating tablet Take 1 tablet by mouth every 6 hours as needed for Nausea/Vomiting. Problem List As Of Date 09/08/2023 Noted Resolved Dysmenorrhea [N94.6] 09/08/2013 Fracture, tibial plateau [S82.143A] 10/02/2015 PCL injury [S89.90XA] 10/02/2015 PFD (patellofemoral disorder) [M22.2X9] 11/19/2015 Hirsutism [L68.0] 04/08/2017 Bulimia nervosa [F50.2] 04/08/2017 Overweight (BMI 25.0-29.9) [E66.3] Abdominal pain [R10.9] 04/24/2023 Dysphagia [R13.10] 04/24/2023 Gastroesophageal reflux disease [K21.9] 04/24/2023 Nausea and vomiting [R11.2] 04/24/2023 Anxiety [F41.9] 07/07/2023 Bipolar disorder (HCC) [F31.9] 07/07/2023 Stiffness of finger joint of right hand [M25.64*08/21/2023 Right hand pain [M79.641] 08/21/2023 Right hand weakness [R29.898] 08/21/2023 Encounter Status:Closed by JESSIE KELLY on 09/08/23 Normal [facility] POTASSIUM BLDon 09-08-2023 Potassium [Moles/Vol] 4.2 mmol/L Normal 3.7-5.1 [facility] Comment on above: Order Comment: Specalec aguilar Type: BLOOD SPECIMENOrdering Facility: [facility] Address: [address] [place] [address] Performed By: #### 3 016-3, K1 ####[facility] LABIA [id number] [place] [address] [place] TSH SerPl-aCncon 09-08-2023 TSH Qn 0.414 m[IU]/L Normal 0.270-4.200 [facility] Comment on above: Order Comment: Speci jeff Type: BLOOD SPECIMENOrdering Facility: [facility] Address: [address] [place] [id number] Result Comment: If t he patient is , TSH reference range varies by gestational period: First Trimester (weeks 9-12): 0.180-2.990 mIU/L Second Trimester: 0.110-3.980 mIU/L Third Trimester: 0.480-4.710 mIU/L Dieudonne Woods et al. A Practical Approach for the Verifications and Determination of Site- and Trimester-Specific Reference Intervals for Thyroid Function tests in . Thyroid, 2019:29:3:412-420. Alejo E, et al. 2017 Guidelines of the [place] [employer] for the Diagnosis and Management of Thyroid Disease during and the . Thyroid, 2017:27:3:315-389. Performed By: #### 3 016-3, K1 ####[facility] LABIA [id number] [address] [place] CNPKarly 09-07-2023 CNPN Telephone (FAMPWS) MATEOKO ([id number]) 1995 F Date Time Provider Department 09/07/23 MILADIS NASSAR During your visit today, we recorded the following information about you: Ann Ballard LPN 09/07/2023 1:16 PM Signed Patient calling she is scheduled for her physical for tomorrow morning with PCP at 820 am. Right now she is on her way to [facility] ER for lump on her left lower rib cage that is about size of small baseball and painful. She had gone to [facility] ER not sure what date for the same thing. She was told if lump got larger may need to have imaging done. Asked patient to make sure records are being faxed to office for both visits. Patient was asking if the appt tomorrow would be changed to ER follow up instead of her physical? Please advise Miladis Nassar MD 09/07/2023 1:19 PM Signed Yes, can change to ER follow up. Will follow up on ER report. Casie Boone LPN 09/07/2023 3:33 PM Signed Appointment notes changed. Casie Boone LPN Allergies As of Date: 09/07/2023 Noted Allergy Reaction GLUTEN 04/03/2023 7 - Swelling 11 - Vomiting HYDROCODONE 05/14/2015 11 - Vomiting ZOLOFT (SERTRALINE HCL) 08/24/2018 8 - GI Upset Date Reviewed: 08/12/2023 Reviewed by: Nadja Brandt Ma - Fully Assessed Reason for Visit: Patient Question [9917] Prescriptions as of 09/07/2023 - busPIRone (BUSPAR) 7.5 mg tablet Take 1 tablet by mouth two times a day. - acetaminophen (TYLENOL EXTRA STRENGTH) 500 mg tablet Take 2 tablets by mouth every 8 hours as needed for pain. Two (2) X 500 mg tablets = 1,000 mg - omeprazole (PRILOSEC) 40 mg capsule Take 1 capsule by mouth once daily. - lamoTRIgine (LAMICTAL) 100 mg tablet Take 100 mg by mouth once daily. - hydrOXYzine HCl (ATARAX) 50 mg tablet Take 50 mg by mouth three times daily as needed. - ondansetron (ZOFRAN) 4 mg tablet Take 4 mg by mouth every 6 hours as needed. - prazosin (MINIPRESS) 1 mg cap Take 1 mg by mouth as needed. At bedtime as needed - traZODone (DESYREL) 50 mg tablet TAKE 1 AND 1/2 (ONE AND ONE-HALF) TABLETS BY MOUTH AT BEDTIME NEEDED FOR INSOMNIA - Magnesium 30 mg tablet Take by mouth. - multivit with iron,minerals (MULTIVITAMIN AND MINERALS ORAL) Take by mouth. - Loperamide HCl (IMODIUM) 2 mg tab Take 1/2 to one full tablet each morning. - benztropine (COGENTIN) 0.5 mg tablet Take 0.5 mg by mouth as needed. Patient reports once daily as needed - ondansetron orally disintegrating (ZOFRAN ODT) 4 mg disintegrating tablet Take 1 tablet by mouth every 6 hours as needed for Nausea/Vomiting. Problem List As Of Date 09/07/2023 Noted Resolved Dysmenorrhea [N94.6] 09/08/2013 Fracture, tibial plateau [S82.143A] 10/02/2015 PCL injury [S89.90XA] 10/02/2015 PFD (patellofemoral disorder) [M22.2X9] 11/19/2015 Hirsutism [L68.0] 04/08/2017 Bulimia nervosa [F50.2] 04/08/2017 Overweight (BMI 25.0-29.9) [E66.3] Abdominal pain [R10.9] 04/24/2023 Dysphagia [R13.10] 04/24/2023 Gastroesophageal reflux disease [K21.9] 04/24/2023 Nausea and vomiting [R11.2] 04/24/2023 Anxiety [F41.9] 07/07/2023 Bipolar disorder (HCC) [F31.9] 07/07/2023 Stiffness of finger joint of right hand [M25.64*08/21/2023 Right hand pain [M79.641] 08/21/2023 Right hand weakness [R29.898] 08/21/2023 Encounter Status:Closed by CASIE BOONE on 09/07/23 Normal [facility] Emergency Department Summary on 09-07-2023 Emergency Department Summary [facility] Medical Records Department [address] [place] [address] Emergency Department Summary 09/07/23 MR#: [id number] Acct: [id number] Name: KO GALINDO Rep #: [id number] : 1995 28 From: Elias Quezada MD PCP: Dr. Charly Nassar MD Status:PRE ER Location: ED HPI History of Present Illness Chief Complaint: Other, Pain/Inj Detail of Chief Complaint: Question left rib cage mass. Informant: patient Onset/Context/Timing Onset: Weeks Context: Gradual Onset Timing: Continuous Maximum Severity: Mild Narrative Narrative: 28-year-old female history of bipolar states that she has a lump on her left lower rib cage. She was seen at [facility] ER on Thursday and a CAT scan of the workup. She said they could not find anything specific. She denies any fall injury or trauma. She said it is uncomfortable. Denies any other complaints. Prior similar symptoms: No Recent Illness/Hospitalizatio n: No [facility] Medical History Bipolar disorder Home Medications benztropine 0.5 mg tablet 0.5 mg PO DAILY PRN muscle spasm 02/17/23 [History Last Taken Unknown] lamotrigine 100 mg tablet 100 mg PO Q12H 02/17/23 [History Last Taken 06/29/23] omeprazole 20 mg capsule,delayed release 20 mg PO DAILY #30 CAPSULES 04/01/23 [Rx Last Taken 06/29/23] sucralfate 1 gram tablet 1 g PO ACHS 06/30/23 [History Last Taken 06/29/23] buspirone 7.5 mg tablet 7.5 mg PO BID 30 days #60 tabs 07/04/23 [Rx Last Taken Unknown] Allergy/AdvReac Type Severity Reaction Status Date / Time hydrocodone Allergy Mild Vomiting Verified 09/07/23 13:43 acetaminophen Allergy Vomiting Verified 09/07/23 13:43 gluten Allergy Vomiting Verified 09/07/23 13:43 Social History Smoking Status: Current every day smoker tobacco type: e-cigarettes substance use type: marijuana ROS ROS ED ROS Narrative 5 days ago had nausea vomiting diarrhea since resolved. Review of Systems ROS Unobtainable: Denies due to encephalopathy Constitutional Constitutional ED: Denies chills or fever(s) Eyes Eyes: Denies blurry vision ENT ENT ED: Denies ear pain Cardiovascular Cardiovascular: Denies chest pain Respiratory/Chest Respiratory/Chest: Denies cough Gastrointestinal Gastrointestinal: Reports diarrhea, nausea and vomiting; Denies abdominal pain, constipation or melena Genitourinary Genitourinary ED: Denies dysuria or hematuria Musculoskeletal Musculoskeletal: Denies arthralgias, back pain, myalgias or neck pain Integumentary Denies abscess, Abrasions or rash Neurologic Neurologic: Denies headache(s) Psychiatric Psychiatric: Denies anxiety, depression, suicidal ideation or suicidal thoughts Endocrine Endocrinology: Denies cold intolerance Hematologic/Lymphatic Hematologic/Lymphatic: Reports none Allergic/Immunologic Allergic/Immunologic ED: Denies mouth swelling, tongue swelling or urticaria EXAM Physical Exam Narrative Exam Narrative: Well-appearing 28-year-old female I saw in triage room 2 due to volume and acuity at that time. Vital signs stable afebrile. H EENT exam unremarkable. Neck nontender. Lungs clear to auscultation bilaterally. Heart regular rhythm rate about 100 no murmur. Chest wall she has minimal tenderness to her left lower chest wall but I do not see any bruising. I do not feel any mass. I do not see or feel any bony abnormality. Basically a normal chest wall and rib exam. Abdomen is soft and nontender. Moves all 4 extremities. Nontender no edema. Neurologically she is awake and alert. Back unremarkable. Normal exam. I explained to the patient that I do not see an abnormality. Const Vital Signs: 09/07/23 13:40 Temperature 97.9 F Temperature Source Temporal Pulse Rate 105 H Respiratory Rate 16 Blood Pressure 133/99 H Blood Pressure Mean 110 Pulse Ox 99 Oxygen Delivery Method Room Air Positive well nourished and well developed; Negative for obese, cachectic, contractures or unkempt General Appearance ED: well developed and NAD; Negative for unkempt, cachectic, contractures, cyanotic, diaphoretic or pallor Nutritional Appearance: Negative for cachectic or obese HEENT Reports moist mucous membranes; Denies dry mucous membranes or other Negative for trauma, tenderness or other Mouth ED: No dry mucous membranes Mouth: No dry mucous membranes Eyes PERRL and EOMs intact bilaterally General Eye ED: Negative for pale conjunctiva, scleral icterus or other Neck no lymphadenopathy, supple and no JVD General: Negative for tenderness Lymph Lymphatic: Negative for other Chest Wall inspection of chest normal and palpation of chest normal Chest: Negative for other Resp normal respirat (more content not included)... Normal [facility] CBC + DIFFon 09-06-2023 Baso # 0.10 x10EE3/UL Normal 0.00 - 0.10 [facility] Comment on above: Performed By: #### 2 [id number] #### [facility],[address] [place] [address] Basophils/100 WBC (Bld) 0.6 % Normal 0.0 - 2.0 [facility] Comment on above: Performed By: #### 2 08745 #### [facility],[address] [place] [address] CBC + DIFF Normal [facility] Comment on above: Result Comment: CBC- COMPLETE BLOOD COUNT Performed By: #### 2 70074 #### [facility],[address] [place] [address] EO # 0.20 x10EE3/UL Normal 0.00 - 0.50 [facility] Comment on above: Performed By: #### 2 96322 #### [facility],[address] [place], [place] [id number] Eosinophils/100 WBC (Bld) 2.0 % Normal 0.0 - 7.0 [facility] Comment on above: Performed By: #### 2 13571 #### [place] [address] Erythrocyte distribution width (RBC) [Ratio] 13.1 % Normal 12.0 - 15.6 [facility] Comment on above: Performed By: #### 2 91097 #### [facility],[address] [place] [address] Hematocrit (Bld) [Volume fraction] 40.3 % Normal 34.0 - 46.0 [facility] Comment on above: Performed By: #### 2 51892 #### [facility],[address] [place], [place] [id number] Hemoglobin (Bld) [Mass/Vol] 13.5 g/dL Normal 12.0 - 16.0 [facility] Comment on above: Performed By: #### 2 39861 #### [facility],[address] [place] [address] Lymph # 2.10 x10EE3/UL Normal 0.80 - 2.80 [facility] Comment on above: Performed By: #### 2 21730 #### [facility],[address] [place] [address] Lymphocytes/100 WBC (Bld) 24.7 % Normal 20.0 - 45.0 [facility] Comment on above: Performed By: #### 2 29195 #### [facility],[address] [place] [address] MANUAL DIFF N/A Normal [facility] Comment on above: Performed By: #### 2 22420 #### [facility],[address] [place] [address]003 MCH (RBC) [Entitic mass] 33 pg Normal 27 - 33 [facility] Comment on above: Performed By: #### 2 97476 #### [facility],[address] [place] [address]77 MCHC 34 X10 3 Normal 32 - 36 [facility] Comment on above: Performed By: #### 2 91368 #### [facility],[address] [place] [address]20 MCV (RBC) [Entitic vol] 98 fL Normal 80 - 99 [facility] Comment on above: Performed By: #### 2 33143 #### [facility],[address] [place], [place] [id number] [place] # 0.60 x10EE3/UL Normal 0.20 - 1.00 [facility] Comment on above: Performed By: #### 2 92989 #### [facility],[address] [place] [address] MONOS % 6.4 % Normal 0.0 - 10.0 [facility] Comment on above: Performed By: #### 2 23933 #### [facility],[address] [place] [address] Morphology Mihir (Bld) [Interp] N/A Normal [facility] Comment on above: Result Comment: {CD] Performed By: #### 2 60936 #### [facility],[address] [place] [address] Neut # 5.70 x10EE3/UL Normal 1.50 - 7.10 [facility] Comment on above: Performed By: #### 2 45679 #### [facility],[address] [place] [address] Neutrophils/100 WBC (Bld) 66.3 % Normal 46.0 - 76.0 [facility] Comment on above: Performed By: #### 2 14184 #### [facility],[address] [place] [address] PLATELET 305 x10EE3/UL Normal 150 - 450 [facility] Comment on above: Performed By: #### 2 09498 #### [facility],[address] [place] [address] Platelet mean volume (Bld) [Entitic vol] 8.3 fL Normal 6.6 - 10.5 [facility] Comment on above: Result Comment: AUTO MATED DIFFERENTIAL Performed By: #### 2 27614 #### [facility],[address] [place] [address] RBC 4.13 x 10EE6/UL Normal 4.10 - 5.30 [facility] Comment on above: Performed By: #### 2 34425 #### [facility],[address] [place] [address] 45395 WBC 8.6 x 10EE3/UL Normal 4.5 - 10.8 [facility] Comment on above: Performed By: #### 2 44777 #### [facility],[address] [place] [address] 73757 CMP with eGFRon 09-06-2023 AGE 28 years Normal [facility] Comment on above: Performed By: #### 2 07988 #### [facility],[address] [place] [address] 21966 Albumin [Mass/Vol] 3.9 g/dL Normal 3.4 - 5.0 [facility] Comment on above: Performed By: #### 2 26279 #### [facility],[address] [place] [address] 51578 Albumin/Globulin [Mass ratio] 1.0 {ratio} Normal 0.9 - 1.6 [facility] Comment on above: Performed By: #### 2 02710 #### [facility],[address] [place] [address] 59470 ALK PHOS 55 U/L Normal 46 - 116 [facility] Comment on above: Performed By: #### 2 88487 #### [facility],[address] [place] [address] 37946 ALT [Catalytic activity/Vol] 19 U/L Normal 14 - 59 [facility] Comment on above: Performed By: #### 2 29563 #### [facility],[address] [place] [address] 87650 Anion gap [Moles/Vol] 14 mmol/L Normal 10 - 20 [facility] Comment on above: Performed By: #### 2 92346 #### [facility],[address] [place] [address] 21007 AST [Catalytic activity/Vol] 7 U/L Low 13 - 39 [facility] Comment on above: Performed By: #### 2 67280 #### [facility],[address] [place] [address] 13372 B/C RATIO 18 ratio Normal 0 - 30 [facility] Comment on above: Performed By: #### 2 41753 #### [facility],[address] [place] [address] 20096 Bilirubin [Mass/Vol] 1.0 mg/dL Normal 0.2 - 1.0 [facility] Comment on above: Performed By: #### 2 37160 #### [facility],[address] [place] [address] 44469 Calcium [Mass/Vol] 9.4 mg/dL Normal 8.5 - 10.1 [facility] Comment on above: Performed By: #### 2 49832 #### [facility],[address] [place] [address] 12048 Chloride [Moles/Vol] 101 mmol/L Normal 98 - 107 [facility] Comment on above: Performed By: #### 2 24087 #### [facility],[address] [place] [address] 39570 CMP with eGFR Normal [facility] Comment on above: Result Comment: COMP REHENSIVE METABOLIC PANEL Performed By: #### 2 30311 #### [facility],[address] [place] [address] 12539 CO2 [Moles/Vol] 27.4 mmol/L Normal 21.0 - 32.0 [facility] Comment on above: Performed By: #### 2 76105 #### [facility],[address] [place] [address] 31402 Creatinine [Mass/Vol] 0.80 mg/dL Normal 0.55 - 1.02 [facility] Comment on above: Performed By: #### 2 95759 #### [facility],[address] [place] [address] 34102 GFR/1.73 sq M.predicted among non-blacks MDRD (S/P/Bld) [Vol rate/Area] mL/min/{1.73_m2} Normal 60 - 999 [facility] Comment on above: Performed By: #### 2 43538 #### [facility],[address] [place] [address] 92178 Result Comment: ACCO RDING TO THE NATIONAL KIDNEY DISEASE EDUCATION PROGRAM(NKDE), A NORMAL eGFR IS A VALUE GREATER THAN OR EQUAL TO 60 ML/MIN/1.73 SQ METERS. CHRONIC KIDNEY DISEASE: <60mL/MIN/1.73 SQ METERS KIDNEY FAILURE: <15mL/MIN/1.73 SQ METERS THIS TEST SHOULD ONLY BE USED FOR PATIENTS 18 YEARS OF AGE AND OLDER. Globulin (S) [Mass/Vol] 3.8 g/dL Normal 1.5 - 3.8 [facility] Comment on above: Performed By: #### 2 59743 #### [address] [address] Glucose [Mass/Vol] 86 mg/dL Normal 74 - 106 [facility] Comment on above: Performed By: #### 2 85985 #### [address] [address] Potassium [Moles/Vol] 3.2 mmol/L Low 3.5 - 5.1 [facility] Comment on above: Performed By: #### 2 98518 #### [facility],[address] [place] [address] 83804 Protein [Mass/Vol] 7.7 g/dL Normal 6.4 - 8.2 [facility] Comment on above: Performed By: #### 2 95735 #### [address] [address] Sodium [Moles/Vol] 139 mmol/L Normal 136 - 145 [facility] Comment on above: Performed By: #### 2 61804 #### [address] [address] Urea nitrogen [Mass/Vol] 14 mg/dL Normal 7 - 18 [facility] Comment on above: Performed By: #### 2 75621 #### [facility],[address] [place] [address] CHEST/ABD/PELVIS C+on CT CHEST/ABD/PELVIS C+ [address] [address] Patient: KO GALINDO Phone#: : 1995 Age: 28 Gender: F Pt. Type: ER Account: [id number] Location: [facility] Ordering: DR. SONIA PATEL Exam Date: 09/05/2023/23:48 Family Phys: MILADIS NASSAR Charge Code: [id number] Physician: Jackson Order #: [id number] Dose#: 14.10 PROCEDURE: CT CHEST/ABD/PELVIS W COMPARISON: None. INDICATIONS: Chest wall tumor. TECHNIQUE: After obtaining the patient's consent, CT images were obtained with intravenous contrast material. All CT scans at this facility use dose modulation, iterative reconstruction, and/or weight based dosing when appropriate to reduce radiation dose to as low as reasonably achievable. IV CONTRAST: Omnipaque 350,80ml CHEST DOSE: 4.50 CTDIvol(mGy) ABDOMEN DOSE: 9.60 CTDIvol(mGy) FINDINGS: LUNGS: Normal. No visible pulmonary disease. VASCULATURE: Normal. No visible pulmonary arterial thrombus or attenuation. BERONICA: Normal. No mass or adenopathy. MEDIASTINUM: Normal. No mass or adenopathy. CARDIAC: Normal. No enlargement, pericardial thickening, or significant calcification. PLEURA: Normal. No mass or effusion. CHEST WALL: Normal. No mass or axillary adenopathy. LIVER: Fatty changes of liver are present. BILIARY: Normal. No visible dilatation or calcification. PANCREAS: Normal. No lesion, fluid collection, ductal dilatation, or atrophy. SPLEEN: Normal. No enlargement or focal lesion. KIDNEYS: Hypoattenuating left renal focus is too small to characterize with certainty, possible cyst. No mass, obstruction, or calcification. ADRENALS: Normal. No mass or enlargement. AORTA/VASCULAR: Normal. No aneurysm or dissection. RETROPERITONEUM: Normal. No mass or adenopathy. BOWEL/MESENTERY: Normal. No visible mass, obstruction, or bowel wall thickening. ABDOMINAL WALL: Small umbilical hernia with fat. No mass or hernia. Continued Report - Page 2 of 2 Patient: KO GALINDO Phone#: : 1995 Age: 28 Gender: F Pt. Type: ER Account: [id number] Location: 2 Ordering: DR. SONIA PATEL Exam Date: 09/05/202323:48 Family Phys: MILADIS LANDAVERDEABBY Charge Code: [id number] Physician: Jackson Order #: [id number] Dose#: [id number] URINARY BLADDER: Normal. No visible focal wall thickening, lesion, or calculus. PELVIC NODES: Normal. No adenopathy. PELVIC ORGANS: The uterus is retroverted. A 1.8 centimeter right adnexal cyst is present. BONES: L5-S1 disc space narrowing. OTHER: Negative. CONCLUSION: 1. There is no evidence of acute thoracic, abdominal pelvic abnormality. 2. The uterus is retroverted. Dictated by: Meagan Snyder MD on 09/06/2023 at 13:23 Approved by: Meagan Snyder MD on 09/06/2023 at 13:31 Normal [facility] SERUM QUALon 09-06 EXTERNAL QC DONE? YES Normal [facility] Comment on above: Performed By: #### 2 29885 #### [facility],[address] [place] [address] INTERNAL QC PASS Normal [facility] Comment on above: Performed By: #### 2 66195 #### [facility],[address] [place] [address] SER Negative Normal NEGATIVE [facility] Comment on above: Performed By: #### 2 31431 #### [facility],[address] [place] [address] CNTHERAPYon 08-21-2023 CNTHERAPY OT/PT/Speech Visit (UNOTHR) MATEOKO Avinash ([id number]) 1995 F Date Time Provider Department 08/21/23 3:15 PM MICHELLE ZIMMERMAN Date Time Provider Department [place] 08/21/2023 3:15 PM [id number], LAURIE YUSEF COUNTS INCLUDE 234 BEDS AT THE [facility] Reason for Visit: OT EVAL [748] OT Discharge [750] Primary Visit Diagnosis:Stiffness of finger joint of right hand [M25.641] Other Visit Diagnoses:Closed displaced fracture of shaft of fifth metacarpal bone of right hand, initial encounter [S62.326A] Post-operative state [Z98.890] Right hand pain [M79.641] Right hand weakness [R29.898] Allergies As of Date: 08/21/2023 Noted Allergy Reaction GLUTEN 04/03/2023 7 - Swelling 11 - Vomiting HYDROCODONE 05/14/2015 11 - Vomiting ZOLOFT (SERTRALINE HCL) 08/24/2018 8 - GI Upset Date Reviewed: 08/12/2023 Reviewed by: Nadja Brandt MA - Fully Assessed Prescriptions as of 10/26/2023 - busPIRone (BUSPAR) 7.5 mg tablet Take 1 tablet by mouth two times a day. - acetaminophen (TYLENOL EXTRA STRENGTH) 500 mg tablet Take 2 tablets by mouth every 8 hours as needed for pain. Two (2) X 500 mg tablets = 1,000 mg - omeprazole (PRILOSEC) 40 mg capsule Take 1 capsule by mouth once daily. - lamoTRIgine (LAMICTAL) 100 mg tablet Take 100 mg by mouth once daily. - hydrOXYzine HCl (ATARAX) 50 mg tablet Take 50 mg by mouth three times daily as needed. - ondansetron (ZOFRAN) 4 mg tablet Take 4 mg by mouth every 6 hours as needed. - prazosin (MINIPRESS) 1 mg cap Take 1 mg by mouth as needed. At bedtime as needed - traZODone (DESYREL) 50 mg tablet TAKE 1 AND 1/2 (ONE AND ONE-HALF) TABLETS BY MOUTH AT BEDTIME NEEDED FOR INSOMNIA - Magnesium 30 mg tablet Take by mouth. - multivit with iron,minerals (MULTIVITAMIN AND MINERALS ORAL) Take by mouth. - Loperamide HCl (IMODIUM) 2 mg tab Take 1/2 to one full tablet each morning. - benztropine (COGENTIN) 0.5 mg tablet Take 0.5 mg by mouth as needed. Patient reports once daily as needed - ondansetron orally disintegrating (ZOFRAN ODT) 4 mg disintegrating tablet Take 1 tablet by mouth every 6 hours as needed for Nausea/Vomiting. [facility] 08-12-2023 [facility] Office Visit (PLAFVW ) KO GALINDO ([id number]) 1995 F Date Time Provider Department 08/12/23 10:00 AM KAMALJIT GORDON PLAW During your visit today, we recorded the following information about you: Kamaljit Gordon PA-C 08/12/2023 10:58 AM Signed Ko Galindo underwent the following procedure on 07/28/23 1) Right fifth metacarpal open reduction internal fixation CPT 85956 The patient returns today for follow-up. The [...] Fracture reduction was maintained. Images posted to [facility] ASSESSMENT: Closed displaced fracture of shaft of [...] care, discussing treatment options and recommendations. Kamaljit Gordon PA-C August 12, 2023 10:38 AM This note was generated with voice recognition software and may contain errors, including spelling, grammar, syntax and misrecognition of what was dictated, that are not fully corrected. Allergies As of Date: 08/12/2023 Noted Allergy Reaction GLUTEN 04/03/2023 7 - Swelling 11 - Vomiting HYDROCODONE 05/14/2015 11 - Vomiting ZOLOFT (SERTRALINE HCL) 08/24/2018 8 - GI Upset Date Reviewed: 08/12/2023 Reviewed by: Nadja Brandt Ma - Fully Assessed Reason for Visit: Post Op [174] Cmt: Right hand Primary Visit Diagnosis:Closed displaced fracture of shaft of fifth metacarpal bone of right hand, initial encounter [S62.326A] Other Visit Diagnosis:Post-operati ve state [Z98.890] Order(s):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 [[id number]] Order #: [id number]: 1 FUTURE XR HAND GENERAL 3V PA/LAT/OBL RIGHT [[id number]] Order #: [id number] FUTURE Prescriptions as of 08/12/2023 - busPIRone (BUSPAR) 7.5 mg tablet Take 1 tablet by mouth two times a day. - acetaminophen (TYLENOL EXTRA STRENGTH) 500 mg tablet Take 2 tablets by mouth every 8 hours as needed for pain. Two (2) X 500 mg tablets = 1,000 mg - omeprazole (PRILOSEC) 40 mg capsule Take 1 capsule by mouth once daily. - lamoTRIgine (LAMICTAL) 100 mg tablet Take 100 mg by mouth once daily. - hydrOXYzine HCl (ATARAX) 50 mg tablet Take 50 mg by mouth three times daily as needed. - ondansetron (ZOFRAN) 4 mg tablet Take 4 mg by mouth every 6 hours as needed. - prazosin (MINIPRESS) 1 mg cap Take 1 mg by mouth as needed. At bedtime as needed - traZODone (DESYREL) 50 mg tablet TAKE 1 AND 1/2 (ONE AND ONE-HALF) TABLETS BY MOUTH AT BEDTIME NEEDED FOR INSOMNIA - Magnesium 30 mg tablet Take by mouth. - multivit with iron,minerals (MULTIVITAMIN AND MINERALS ORAL) Take by mouth. - Loperamide HCl (IMODIUM) 2 mg tab Take 1/2 to one full tablet each morning. - benztropine (COGENTIN) 0.5 mg tablet Take 0.5 mg by mouth as needed. Patient reports once daily as needed - ondansetron orally disintegrating (ZOFRAN ODT) 4 mg disintegrating tablet Take 1 tablet by mouth every 6 hours as needed for Nausea/Vomiting. Problem List As Of Date 08/12/2023 Noted Resolved Dysmenorrhea [N94.6] 09/08/2013 Fracture, tibial plateau [S82.143A] 10/02/2015 PCL injury [S89.90XA] 10/02/2015 PFD (patellofemoral disorder) [M22.2X9] 11/19/2015 Hirsutism [L68.0] 04/08/2017 Bulimia nervosa [F50.2] 04/08/2017 Overweight (BMI 25.0-29.9) [E66.3] Abdominal pain [R10.9] 04/24/2023 Dysphagia [R13.10] 04/24/2023 Gastroesophageal reflux disease [K21.9] 04/24/2023 Nausea and vomiting [R11.2] 04/24/2023 Anxiety [F41.9] 07/07/2023 Bipolar disorder (HCC) [F31.9] 07/07/2023 Level of Service: POSTOP FOLLOW UP VISIT RELATED TO ORIGINAL PX [18353] Encounter Status:Closed by KAMALJIT GORDON on 08/12/23 [employer] ANES POSTPROC EVALon 023 ANES POSTPROC EVAL HNO ID: [id number] Author: Marj Dover MD Service: ? Author Type: Anesthesiologist Type: Anesthesia Postprocedure Evaluation Filed: 07/28/2023 6:48 PM Note Text: POST ANESTHESIA EVALUATION NOTE : 1995 Procedure Summary Date: 07/28/23 Room / Location: [address] [facility] Anesthesia Start: 1610 Anesthesia Stop: 1744 Procedure: CLOSED REDUCTION METACARPAL FX. W/ MANIPULATION SINGLE (Right: Arm below elbow) Diagnosis: Displaced fracture of shaft of fifth metacarpal bone, right hand, initial encounter for closed fracture (Displaced fracture of shaft of fifth metacarpal bone, right hand, initial encounter for closed fracture [S62.326A]) Surgeons: Gabriel Barrett MD Responsible Provider: Marj Dover MD Anesthesia Type: MAC ASA Status: 2 Anesthesia Type: MAC Last Vitals Vitals Value Taken Time BP 109/74 07/28/23 1815 Temp 36.2 ?C (97.2 ?F) 07/28/23 1745 Pulse 90 07/28/23 1817 Resp 15 07/28/23 1815 SpO2 86 % 07/28/231816 Vitals shown include unfiled device data. Post Anesthesia Patient Status Patient Evaluation: PACU. PACU/ICU Patient Condition: stable. Anticipated Disposition: phase 2 then home. Neurological Status: aware and responsive. Pulmonary Status: breathing comfortably on room air Airway Control: returned to baseline unsupported. Cardiovascular Status: stable. Pain Management: clinically adequate Postoperative Hydration: acceptable. Intraoperative Events: no significant anesthesia events Post Operative Nausea/Vomiting Status: no significant post operative nausea or vomiting Recommendation: continue current plan of care. Anesthesia Observations No notable events were associated with this procedure. Documented by Marj Dover MD 07/28/2023 6:47 PM EST SIGNATURE: Marj Dover MD PATIENT NAME: Ko Galindo DATE: July 28, 2023 TIME: 6:47 PM CSN: [id number] [facility] ANES PRE-OPon 07-28-2023 ANES PRE-OP HNO ID: [id number] Author: Ashly Gage MD Service: ? Author Type: Resident Type: Anesthesia Preprocedure Evaluation Filed: 07/28/2023 4:13 PM Note Text: Attestation signed by Vladimir Villegas MD at 07/28/2023 4:19 PM I have read and agree with the above note. I was present for hall portions of all exam(s) and procedure(s). Vladimir Min MD July 28, 2023 4:19 PM ANESTHESIOLOGY DAY OF SURGERY NOTE : 1995 Procedure Information Anesthesia Start Date/Time: 07/28/23 1611 Procedure: CLOSED REDUCTION METACARPAL FX. W/ MANIPULATION SINGLE (Right: Arm below elbow) Location: [place] [address] / [facility] Surgeons: Gabriel Barrett MD Estimated body mass index is 23.52 kg/m? as calculated from the following: Height as of 07/10/23: 160 cm (5' 3). Weight as of 07/10/23: 60.2 kg (132 lb 12.8 oz). Most recent hematocrit and potassium results: Hematocrit 39.5 01/28/2023 Potassium 4.4 01/28/2023 Relevant Problems GI (+) Gastroesophageal reflux disease I - PHYSICAL EVALUATION AIRWAY Patient intubated: No. Tracheostomy tube not present Mallampati: I. TM distance: >3 FB. Neck ROM: full ROM without neurological symptoms. Mouth opening: adequate. Short neck: no. Thick neck: no Brown present: no Lip Bite Test: I Microretrognathia/Micr onagthia/Recessed Chin: No DENTAL Dental findings: teeth intact. Additional exam findings: no II - ANESTHESIA PLAN ASA Score: 2 Anesthetic Plan: MAC The patient is not a current smoker. NPO Status: adequate Beta Wnedy Administration of chronic beta wendy medication not planned. Monitoring Plan Monitoring plan: standard ASA. Post Procedure Analgesic Plan Postoperative analgesic plan: parenteral or oral opioids. Informed Consent Anesthetic risks, benefits, alternatives, personnel and consent discussed: yes. Patient / Responsible Alliance Party agrees to proceed: yes Patient / Surrogate agrees to blood products: Yes DNR status not reviewed with patient and/or family prior to surgery. Significant changes in the patient condition since the History and Physical, not otherwise documented in primary service progress note: no. Discussed the possibility of lip / dental damage: no Vitals Value Taken Time BP 104/65 07/28/23 1500 Pulse 82 07/28/23 1505 Resp 16 07/28/23 1410 Temp 36.4 ?C (97.5 ?F) 07/28/23 1410 SpO2 100 % 07/28/23 1505 No current facility-administered medications on file as of 07/28/2023. Outpatient Medications as of 07/28/2023 Medication Sig - busPIRone (BUSPAR) 7.5 mg tablet Take 7.5 mg by mouth two times a day. - omeprazole (PRILOSEC) 40 mg capsule Take 1 capsule by mouth once daily. - lamoTRIgine (LAMICTAL) 100 mg tablet Take 100 mg by mouth once daily. - ondansetron (ZOFRAN) 4 mg tablet Take 4 mg by mouth every 6 hours as needed. - traZODone (DESYREL) 50 mg tablet TAKE 1 AND 1/2 (ONE AND ONE-HALF) TABLETS BY MOUTH AT BEDTIME NEEDED FOR INSOMNIA - Magnesium 30 mg tablet Take by mouth. - multivit with iron,minerals (MULTIVITAMIN AND MINERALS ORAL) Take by mouth. - hydrOXYzine HCl (ATARAX) 50 mg tablet Take 50 mg by mouth three times daily as needed. - prazosin (MINIPRESS) 1 mg cap Take 1 mg by mouth as needed. At bedtime as needed - Loperamide HCl (IMODIUM) 2 mg tab Take 1/2 to one full tablet each morning. - benztropine (COGENTIN) 0.5 mg tablet Take 0.5 mg by mouth as needed. Patient reports once daily as needed - ondansetron orally disintegrating (ZOFRAN ODT) 4 mg disintegrating tablet Take 1 tablet by mouth every 6 hours as needed for Nausea/Vomiting. I have interviewed and examined the patient. I have reviewed the medical record and/or the pre-anesthesia evaluation, pertinent labs, and test results. This contains updated information obtained within 48 hours of Surgery/Procedure. SIGNATURE: Ashly Gage MD PATIENT NAME: Ko Galindo DATE: July 28, 2023 TIME: 4:11 PM CSN: [id number] [facility] BRIEF OP NOTon 07-28-2023 BRIEF OP NOT HNO ID: [id number] Author: Kamaljit Gordon PA-C Service: ? Author Type: Physician Explosives Engineer Type: Brief Op Note Filed: 07/28/2023 5:27 PM Note Text: BRIEF OPERATIVE / PROCEDURE NOTE LOG ID: [id number] SURGERY/PROCEDURE DATE: 07/28/2023 INCISION/PROCEDURE START TIME: 4:50 PM INCISION CLOSE/PROCEDURE END TIME: 5:22 PM SURGEON(S)/PROCEDURALI ST(S) AND ADA ACCOMMODATION CONSULTANT(S): Surgeon(s) and Role: * Gabriel Barrett MD - Primary No Additional Staff SURGERY/PROCEDURE(S): open reduction and internal fixation of the right small finger ANESTHESIA: Block Regional - Extremity Upper FINDINGS: as expected ESTIMATED BLOOD LOSS: 0 mls SPECIMENS: None COMPLICATIONS: CLOSURE TECHNIQUE: Primary PRE-OP/PRE-PROCEDURE DIAGNOSIS: right 5th metacarpal displaced shaft fracture POST-OP/POST-PROCEDURE DIAGNOSIS: Same as Preop SIGNATURE: Kamaljit Gordon PA-C PATIENT NAME: Ko Galindo DATE: July 28, 2023 TIME: 5:26 PM [facility] OPERATIVE NOon 07-28-2023 OPERATIVE NO HNO ID: [id number] Author: Gabriel Barrett MD Service: Hand Surgery Author Type: Physician Type: Operative Report Filed: 08/12/2023 10:43 AM Note Text: OPERATIVE/PROCEDURE REPORT LOG ID: [id number] SURGERY/PROCEDURE DATE: 07/28/2023 INCISION/PROCEDURE START TIME: 4:50 PM INCISION CLOSE/PROCEDURE END TIME: 5:22 PM SURGEON(S)/PROCEDURALI ST(S) AND ADA ACCOMMODATION CONSULTANT(S): Surgeon(s) and Role: * Gabriel Barrett MD - Primary No Additional Staff Surgeon(s) and Role: * Gabriel Barrett MD - Primary * SOLE Frankel, DTB - Assisting SURGERY/PROCEDURE(S): 1) Right fifth metacarpal open reduction internal fixation CPT 56515 ANESTHESIA: Block Regional - Extremity Upper and MAC INDICATIONS: This is a 28 year old female who presents with displaced right fifth metacarpal shaft fracture that occured more than 2 weeks ago RISKS, BENEFITS, ALTERNATIVES: The patient was counseled extensively regarding the options for treatment including operative and non-operative forms of treatment and after thorough counseling has elected to proceed with surgical treatment. The patient was counseled that with surgical treatment there is the possibility that their condition might not improve or may even worsen. Specific surgical risks discussed include bleeding, the need for possible blood product transfusion, infection, post-operative pain, damage to nerves and blood vessels, wound dehiscence and wound healing problems, incomplete relief of pain, post-operative instability (dislocation), the need for physical therapy, inability to return to desired level of function, post-operative limp, generalized dissatisfaction with the surgical procedure, complex regional pain syndrome, as well as medical complications such as DVT, PE, cardiopulmonary complications, and complications related to anesthesia. If hardware needs to be placed, additional risks include implant failure and nonunion/malunion. The patient expressed understanding of all the issues described above and has elected to proceed with the aforementioned procedure. INTRAOPERATIVE FINDINGS: Fracture SURGERY/PROCEDURE DETAILS: A time-out was performed. Regional anesthesia was performed by the anesthesia team. After ensuring adequate regional anesthesia has been achieved, a non-sterile tourniquet was placed on the upper arm of the operative upper extremity, and the hand and forearm of the operated extremity were prepped and draped in the standard sterile fashion. Another time-out was performed confirming patient identity, procedure laterality, site, and fire risks. A mini c-arm was also draped sterilely. We began by performing closed reduction of the right fifth metacarpal shaft fracture under fluoroscopy. After reduction of the fracture was achieved and confirmed under fluoroscopy, a stab incision was made over the metacarpal head region, and a guidewire from [employer] screw (4.5mm) set was used, and inserted into the dorsal third of the metacarpal head region in a retrograde fashion. Reduction was held with the guidewire. Next, the guidewire was advanced until it engaged the base of the metacarpal bone, and the length of the metacarpal was measured using the measuring guide included in the kit. We then subtracted 5 mm off the measurement, and inserted a 40 mm long cannulated screw. After advancing the screw across the fracture site, the head of the screw was buried under the metacarpal head subchondral bone, and the guidewire removed. Fluoroscopy was again used to confirm complete insertion of the screw deep to the subchondral bone, as well as maintenance of fracture reduction. This was found to be the case. The stab incision was closed in a single layer using 4-0 chromic suture. Final AP, lateral, and oblique views of the metacarpal was taken to show proper reduction and stabilization of the fracture. Finger cascade was examined, with fingers in full flexion into a composite fist. This was found to be normal, without malrotation. The patient was then placed into hand based ulnar gutter fiberglass splint, leaving the metacarpophalangeal joint, proximal interphalangeal joint, and distal interphalangeal joint free to move, in order to minimize finger stiffness. All counts were correct at the conclusion of the case. The patient tolerated the procedure without any immediate complication and was transported to PACU in good condition. TOURNIQUET TIME: [place] POSTOPERATIVE PLAN: 1) Follow up in 2 weeks PRE-OP/PRE-PROCEDURE DIAGNOSIS: 1) Displaced right fifth metacarpal shaft fracture POST-OP/POST-PROCEDURE DIAGNOSIS: Same as Preop COUNTS: Instrument, sponge, and needle counts were correct at the end of the procedure ESTIMATED BLOOD LOSS: 0 ml SPECIMENS: * No specimens in log * IMPLANTABLE DEVICES: Implant Name Type Inv. Item Serial No. Staff Toxicologist Lot No. LRB No. Used Action Model No. NAIL INNATE 4.5MM (more content not included)... Normal [facility] CNOVon 07-24-2023 CNOV Office Visit (OTMBHT ) MATEOKO ([id number]) 1995 F Date Time Provider Department 07/24/23 8:45 AM CAST TECH [facility] During your visit today, we recorded the following information about you: Corinne Lake MA 07/24/2023 9:08 AM Signed PT ASSESSMENT - CASTING ROOM Ko presents for bivalve of cast for surgery next week. Corinne Lake MA Referring Provider: SELF [200] Allergies As of Date: 07/24/2023 Noted Allergy Reaction GLUTEN 04/03/2023 7 - Swelling 11 - Vomiting HYDROCODONE 05/14/2015 11 - Vomiting ZOLOFT (SERTRALINE HCL) 08/24/2018 8 - GI Upset Date Reviewed: 07/22/2023 Reviewed by: Sina Mo-BENOIT Dan - Fully Assessed Primary Visit Diagnosis:Closed displaced fracture of shaft of fifth metacarpal bone of right hand with routine healing, subsequent encounter [C46.496R] Prescriptions as of 07/24/2023 - busPIRone (BUSPAR) 7.5 mg tablet Take 7.5 mg by mouth two times a day. - omeprazole (PRILOSEC) 40 mg capsule Take 1 capsule by mouth once daily. - lamoTRIgine (LAMICTAL) 100 mg tablet Take 100 mg by mouth once daily. - hydrOXYzine HCl (ATARAX) 50 mg tablet Take 50 mg by mouth three times daily as needed. - ondansetron (ZOFRAN) 4 mg tablet Take 4 mg by mouth every 6 hours as needed. - prazosin (MINIPRESS) 1 mg cap Take 1 mg by mouth as needed. At bedtime as needed - traZODone (DESYREL) 50 mg tablet TAKE 1 AND 1/2 (ONE AND ONE-HALF) TABLETS BY MOUTH AT BEDTIME NEEDED FOR INSOMNIA - Magnesium 30 mg tablet Take by mouth. - multivit with iron,minerals (MULTIVITAMIN AND MINERALS ORAL) Take by mouth. - Loperamide HCl (IMODIUM) 2 mg tab Take 1/2 to one full tablet each morning. - benztropine (COGENTIN) 0.5 mg tablet Take 0.5 mg by mouth as needed. Patient reports once daily as needed - ondansetron orally disintegrating (ZOFRAN ODT) 4 mg disintegrating tablet Take 1 tablet by mouth every 6 hours as needed for Nausea/Vomiting. Problem List As Of Date 07/24/2023 Noted Resolved Dysmenorrhea [N94.6] 09/08/2013 Fracture, tibial plateau [S82.143A] 10/02/2015 PCL injury [S89.90XA] 10/02/2015 PFD (patellofemoral disorder) [M22.2X9] 11/19/2015 Hirsutism [L68.0] 04/08/2017 Bulimia nervosa [F50.2] 04/08/2017 Overweight (BMI 25.0-29.9) [E66.3] Abdominal pain [R10.9] 04/24/2023 Dysphagia [R13.10] 04/24/2023 Gastroesophageal reflux disease [K21.9] 04/24/2023 Nausea and vomiting [R11.2] 04/24/2023 Anxiety [F41.9] 07/07/2023 Bipolar disorder (HCC) [F31.9] 07/07/2023 Encounter Status:Closed by CORINNE LAKE on 07/24/23 [facility] KO GALINDO ([id number]) 1995 F Date Time Provider Department 07/24/23 8:30 AM KAMALJIT GORDON [facility] During your visit today, we recorded the following information about you: Kamaljit Gordon PA-C 07/24/2023 5:07 PM Addendum NEW ENCOUNTER Chief Complaint: closed fracture of [...] 6 years. Quit 08/10/2020. 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 Galindo the diagnosis and proposed treatment options. Treatment options for metacarpal fractures were discussed. We discussed that this may be treated nonoperatively with kemar strapping, and splint immobilization until fracture heals. This option does not involve surgery, however, the bony malalignment will not be corrected, and the patient will likely have some difficulty forming a full composite fist after fracture healing. Shoshana (more content not included)... Normal [facility] CNPNon 07-24-2023 CNPN Telephone ([facility]) KO GALINDO ([id number]) 1995 F Date Time Provider Department 07/24/23 BIRGIT TURCIOS During your visit today, we recorded the following information about you: Fatoumata Lane 07/24/2023 10:09 AM Signed Ko Galindo is calling Birgit Turcios PA-C today with [...] , it is OK to leave message [phone] (home) [phone] (cell) Was an appointment scheduled: Closing statement: Janet Lau OCCA 07/24/2023 1:40 PM Signed Returned patients call. Was seen by Plastic in [facility] earlier today. According to visit notes, patient is scheduled for surgery on 07/28/[address] Barrett. Patient is aware. Had also received a call from another surgeon. Concern for her cast being bivalved prior to surgery. Instructed patient that her hand would be fine with cast bivalved, makes removal easier prior to surgery. Patient appreciated call and is awaiting further instructions from surgery team. Allergies As of Date: 07/24/2023 Noted Allergy Reaction GLUTEN 04/03/2023 7 - Swelling 11 - Vomiting HYDROCODONE 05/14/2015 11 - Vomiting ZOLOFT (SERTRALINE HCL) 08/24/2018 8 - GI Upset Date Reviewed: 07/22/2023 Reviewed by: Sina Mo-BENOIT Dan - Fully Assessed Reason for Visit: Schedule Surgery [1330] Prescriptions as of 07/24/2023 - busPIRone (BUSPAR) 7.5 mg tablet Take 7.5 mg by mouth two times a day. - omeprazole (PRILOSEC) 40 mg capsule Take 1 capsule by mouth once daily. - lamoTRIgine (LAMICTAL) 100 mg tablet Take 100 mg by mouth once daily. - hydrOXYzine HCl (ATARAX) 50 mg tablet Take 50 mg by mouth three times daily as needed. - ondansetron (ZOFRAN) 4 mg tablet Take 4 mg by mouth every 6 hours as needed. - prazosin (MINIPRESS) 1 mg cap Take 1 mg by mouth as needed. At bedtime as needed - traZODone (DESYREL) 50 mg tablet TAKE 1 AND 1/2 (ONE AND ONE-HALF) TABLETS BY MOUTH AT BEDTIME NEEDED FOR INSOMNIA - Magnesium 30 mg tablet Take by mouth. - multivit with iron,minerals (MULTIVITAMIN AND MINERALS ORAL) Take by mouth. - Loperamide HCl (IMODIUM) 2 mg tab Take 1/2 to one full tablet each morning. - benztropine (COGENTIN) 0.5 mg tablet Take 0.5 mg by mouth as needed. Patient reports once daily as needed - ondansetron orally disintegrating (ZOFRAN ODT) 4 mg disintegrating tablet Take 1 tablet by mouth every 6 hours as needed for Nausea/Vomiting. Problem List As Of Date 07/24/2023 Noted Resolved Dysmenorrhea [N94.6] 09/08/2013 Fracture, tibial plateau [S82.143A] 10/02/2015 PCL injury [S89.90XA] 10/02/2015 PFD (patellofemoral disorder) [M22.2X9] 11/19/2015 Hirsutism [L68.0] 04/08/2017 Bulimia nervosa [F50.2] 04/08/2017 Overweight (BMI 25.0-29.9) [E66.3] Abdominal pain [R10.9] 04/24/2023 Dysphagia [R13.10] 04/24/2023 Gastroesophageal reflux disease [K21.9] 04/24/2023 Nausea and vomiting [R11.2] 04/24/2023 Anxiety [F41.9] 07/07/2023 Bipolar disorder (HCC) [F31.9] 07/07/2023 Encounter Status:Closed by LONDON JANET on 07/24/23 [facility] HISTORY PHYSICALon HISTORY PHYSICAL HNO ID: [id number] Author: Kamaljit Gordon PA-C Service: ? Author Type: Physician Explosives Engineer Type: HANDP Filed: 07/24/2023 5:07 PM Note Text: NEW [...] 6 years. Quit 08/10/2020. 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 Galindo the diagnosis and proposed treatment options. Treatment [...] still have functional range of motion. Alternatively, th (more content not included)... Normal [facility] CNOVon 07-22-2023 CNOV Office Visit (ORAVON ) MATEOKO Gong ([id number]) 1995 F Date Time Provider Department 07/22/23 12:00 PM BIRGIT TURCIOS During your visit today, we recorded the following information about you: Birgit Turcios PA-C 07/22/2023 1:03 PM Signed Ko Galindo is a patient of Miladis Nassar MD. 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 No PHYSICAL EXAMINATION: Vitals: [facility] [facility] Body Habitus:well nourished and no acute distress Orientation: Normal: Oriented to person, place and time Psych: normal Skin: Color, texture, turgor normal. No rashes or lesions Sensation: sensation to light touch is grossly normal bilaterally Specific MSK Exam Good cap refill. Exam limited due to cast IMAGING: Final results and radiologist's interpretation, available in the [facility] health record. Images were reviewed with the patient/family members in the office today. My personal interpretation of the performed imaging is interval shifting of fracture CLINICAL IMPRESSION / ASSESSMENT: (B40.590A) Closed displaced fracture of shaft of fifth [...] syntax or word sense that escaped review. Allergies As of Date: 07/22/2023 Noted Allergy Reaction GLUTEN 04/03/2023 7 - Swelling 11 - Vomiting HYDROCODONE 05/14/2015 11 - Vomiting ZOLOFT (SERTRALINE HCL) 08/24/2018 8 - GI Upset Date Reviewed: 07/22/2023 Reviewed by: Sina Mo-BENOIT Dna - Fully Assessed Reason for Visit: Established Patient [175] Primary Visit Diagnosis:Closed displaced fracture of shaft of fifth metacarpal bone of right hand with routine healing, subsequent encounter [S63.789D] Order(s):XR HAND GENERAL 3V PA/LAT/OBL RIGHT [[id number]] Order #: [id number] FUTURE Prescriptions as of 07/22/2023 - busPIRone (BUSPAR) 7.5 mg tablet Take 7.5 mg by mouth two times a day. - omeprazole (PRILOSEC) 40 mg capsule Take 1 capsule by mouth once daily. - lamoTRIgine (LAMICTAL) 100 mg tablet Take 100 mg by mouth once daily. - hydrOXYzine HCl (ATARAX) 50 mg tablet Take 50 mg by mouth three times daily as needed. - ondansetron (ZOFRAN) 4 mg tablet Take 4 mg by mouth every 6 hours as needed. - prazosin (MINIPRESS) 1 mg cap Take 1 mg by mouth as needed. At bedtime as needed - traZODone (DESYREL) 50 mg tablet TAKE 1 AND 1/2 (ONE AND ONE-HALF) TABLETS BY MOUTH AT BEDTIME NEEDED FOR INSOMNIA - Magnesium 30 mg tablet Take by mouth. - multivit with iron,minerals (MULTIVITAMIN AND MINERALS ORAL) Take by mouth. - Loperamide HCl (IMODIUM) 2 mg tab Take 1/2 to one full tablet each morning. - benztropine (COGENTIN) 0.5 mg tablet Take 0.5 mg by mouth as needed. Patient reports once daily as needed - ondansetron orally disintegrating (ZOFRAN ODT) 4 mg disintegrating tablet Take 1 tablet by mouth every 6 hours as needed for Nausea/Vomiting. Problem List As Of Date 07/22/2023 Noted Resolved Dysmenorrhea [N94.6] 09/08/2013 Fracture, tibial plateau [S82.143A] 10/02/2015 PCL injury [S89.90XA] 10/02/2015 PFD (patellofemoral disorder) [M22.2X9] 11/19/2015 Hirsutism [L68.0] 04/08/2017 Bulimia nervosa [F50.2] 04/08/2017 Overweight (BMI 25.0-29.9) [E66.3] Abdominal pain [R10.9] 04/24/2023 Dysphagia [R13.10] 04/24/2023 Gastroesophageal reflux disease [K21.9] 04/24/2023 Nausea and vomiting [R11.2] 04/24/2023 Anxiety [F4 (more content not included)... [facility] HAND 3V PA/LAT/OBL RTon 1 09-22-2022 XR HAND 3V PA/LAT/OBL RT * * *Final Report* * * DATE OF EXAM: Jul 22 2023 11:53AM [...] obscures bony detail. No other significant abnormality. - IMPRESSION: FRACTURE(S) DESCRIBED FIFTH METACARPAL Warehouse Delivery Driver: HANS Transcribe Date/Time: Jul 22 2023 1:07P Dictated by : NIKKY SANDRA MD This examination was interpreted and the report reviewed and electronically signed by: NIKKY SANDRA MD on Jul 22 2023 1:08PM EST [id number] Normal [facility] CNOVon 07-17-2023 CNOV Office Visit (ORAVON ) KO GALINDO ([id number]) 1995 F Date Time Provider Department 07/17/23 2:50 PM BIRGIT TURCIOS During your visit today, we recorded the following information about you: Birgit Turcios PA-C 07/17/2023 3:42 PM Signed [facility] CHIEF COMPLAINT(CC): Right fifth [...] is pretty well controlled with ibuprofen. 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 Images were reviewed with the [...] treatment if they present. Birgit Turcios PA-C Allergies As (more content not included)... Normal [facility] CNOV Office Visit (ORAVON ) KO GALINDO ([id number]) 1995 F Date Time Provider Department 07/17/23 2:30 PM CAST TECH LISET DE LA O During your visit today, we recorded the following information about you: Janet Hurtado OCCA 07/17/2023 3:38 PM Signed PT ASSESSMENT - CASTING ROOM Ko presents for Application of cast. Applied waterproof short arm boxer's cast: to Right arm Patient has been instructed in Care of cast.. OSITO Hendrickson Allergies As of Date: 07/17/2023 Noted Allergy Reaction GLUTEN 04/03/2023 7 - Swelling 11 - Vomiting HYDROCODONE 05/14/2015 11 - Vomiting ZOLOFT (SERTRALINE HCL) 08/24/2018 8 - GI Upset Date Reviewed: 07/17/2023 Reviewed by: Rishi Ortiz OCCA - Fully Assessed Primary Visit Diagnosis:Right hand pain [M79.641] Other Visit Diagnosis:Closed displaced fracture of shaft of fifth metacarpal bone of right hand, initial encounter [S62.326A] Prescriptions as of 07/17/2023 - busPIRone (BUSPAR) 7.5 mg tablet Take 7.5 mg by mouth two times a day. - omeprazole (PRILOSEC) 40 mg capsule Take 1 capsule by mouth once daily. - lamoTRIgine (LAMICTAL) 100 mg tablet Take 100 mg by mouth once daily. - hydrOXYzine HCl (ATARAX) 50 mg tablet Take 50 mg by mouth three times daily as needed. - ondansetron (ZOFRAN) 4 mg tablet Take 4 mg by mouth every 6 hours as needed. - prazosin (MINIPRESS) 1 mg cap Take 1 mg by mouth as needed. At bedtime as needed - traZODone (DESYREL) 50 mg tablet TAKE 1 AND 1/2 (ONE AND ONE-HALF) TABLETS BY MOUTH AT BEDTIME NEEDED FOR INSOMNIA - Magnesium 30 mg tablet Take by mouth. - multivit with iron,minerals (MULTIVITAMIN AND MINERALS ORAL) Take by mouth. - Loperamide HCl (IMODIUM) 2 mg tab Take 1/2 to one full tablet each morning. - benztropine (COGENTIN) 0.5 mg tablet Take 0.5 mg by mouth as needed. Patient reports once daily as needed - ondansetron orally disintegrating (ZOFRAN ODT) 4 mg disintegrating tablet Take 1 tablet by mouth every 6 hours as needed for Nausea/Vomiting. Problem List As Of Date 07/17/2023 Noted Resolved Dysmenorrhea [N94.6] 09/08/2013 Fracture, tibial plateau [S82.143A] 10/02/2015 PCL injury [S89.90XA] 10/02/2015 PFD (patellofemoral disorder) [M22.2X9] 11/19/2015 Hirsutism [L68.0] 04/08/2017 Bulimia nervosa [F50.2] 04/08/2017 Overweight (BMI 25.0-29.9) [E66.3] Abdominal pain [R10.9] 04/24/2023 Dysphagia [R13.10] 04/24/2023 Gastroesophageal reflux disease [K21.9] 04/24/2023 Nausea and vomiting [R11.2] 04/24/2023 Anxiety [F41.9] 07/07/2023 Bipolar disorder (HCC) [F31.9] 07/07/2023 Encounter Status:Closed by JANET HURTADO on 07/17/23 [facility] XR HAND 3V PA/LAT/OBL RTon 1 09-17-2022 XR HAND 3V PA/LAT/OBL RT * * *Final Report* * * DATE OF EXAM: Jul 17 2023 2:35PM AFR [id number] - XR HAND 3V PA/LAT/OBL RT / PROCEDURE REASON: Right hand pain * * * * Physician Interpretation * * * * EXAMINATION / TECHNIQUE: XR HAND 3V PA/LAT/OBL RT PATIENT/TECHNOLOGIST PROVIDED HISTORY: RIGHT FIFTH METACARPAL FRACTURE 1 WEEK CLINICAL INFORMATION ( PROVIDED BY ORDERING CLINICIAN) : Right hand pain COMPARISON: None RESULT: Acute oblique fifth metacarpal shaft fracture with apex dorsal angulation. Alignment at the fifth MCP joint is maintained. Overlying soft tissue swelling. Joint spaces are preserved. No osseous erosions. Ulnar minus variance. IMPRESSION: Acute angulated fifth metacarpal fracture. Warehouse Delivery Driver: PSCB Transcribe Date/Time: Jul 17 2023 3:02P Dictated by : PATY VERA MD This examination was interpreted and the report reviewed and electronically signed by: ADONAY CHOU MD on Jul 17 2023 3:24PM EST [id number] Normal [facility] XR HAND GENERAL 3V PA/LAT/OB L RIGHTon 07-17-2023 [facility] XR HAND RIGHT 2 VIEWSon XR HAND RIGHT 2 VIEWS EXAMINATION: XR HAND RIGHT 2 VIEWS 07/11/2023 2:43 pm HISTORY: ORDERING SYSTEM PROVIDED HISTORY: Postreduction, TECHNOLOGIST PROVIDED HISTORY: Injury/Trauma Reason for exam: post reduction Cancer History: n Surgery, RadiationHistory: n Encounter Type: Initial Mechanism of injury: punching injury ORDERING SYSTEM PROVIDED DIAGNOSIS CODES: S62.326A Closed displaced fracture of shaft of fifth metacarpal bone of right hand, initial encounter COMPARISON: 07/11/2023 at 2:05 p.m. IMPRESSION: FINDINGS/ 1. Since the prior exam of approximately 40 minutes earlier, the previously seen acute extra-articular fracture of the distal diaphysis of the 5th metacarpal has been reduced to near anatomic alignment, with 1.5 mm of minimal residual dorsal displacement and 34 degrees of residual dorsal angulation of the distal fracture fragment. 2. A splint/bandage has been placed, obscuring some fine bony detail. 3. No other fracture, malalignment, significant arthritis or acute bony abnormality is seen. Workstation ID: [id number] Dictated by: AMANDA HUTCHINSON on [facility] Jul 11, 2023 3:13:32 PM EST Transcribed by: AMANDA HUTCHINSON on [facility] Jul 11, 2023 3:13:32 PM EST Finalized by: AMANDA HUTCHINSON on [facility] Jul 11, 2023 3:13:32 PM EST Normal [facility] Comment on above: Order Comment: Injur y/Trauma or Illness?:Injury/Trauma How long have you had these symptoms (acute/chronic)?:Acute Reason for exam?:post reduction History of cancer?:n Surgeries, chemotherapy, or radiation?:n Type of Exam?:Initial Mechanism of injury?:punching injury XR HAND RIGHT 3+ VIEWS (RYANNE PUCKETT)on 07-11-2023 XR HAND RIGHT 3+ VIEWS (STANDARD) EXAMINATION: XR HAND RIGHT 3+ VIEWS (STANDARD) HISTORY: ORDERING SYSTEM PROVIDED HISTORY: Punched a punching bag. Right fifth metacarpal pain., TECHNOLOGIST PROVIDED HISTORY: Injury/Trauma Reason for exam: pain 5th metacarpal Cancer History: n Surgery, RadiationHistory: n Encounter Type: Initial Mechanism of injury: punched a punching bag ORDERING SYSTEM PROVIDED DIAGNOSIS CODES: COMPARISON: None FINDINGS: Three views of the right hand. There is cortical step-off of the like lucency through the distal aspect of the shaft of the 5th metacarpal. There is 1-2 mm of displacement. There is severe apex dorsal angulation. No additional fracture. There is overlying soft tissue swelling. Joint spaces are preserved. Soft tissues are within normal limits. IMPRESSION: There is an acute oblique fracture of the distal aspect of the diaphysis of the 5th metacarpal with mild displacement and with severe apex dorsal angulation. Workstation ID: [id number] Dictated by: DAMIAN ABRAHAM on [facility] Jul 11, 2023 2:47:17 PM EST Transcribed by: DAMIAN ABRAHAM on [facility] Jul 11, 2023 2:47:17 PM EST Finalized by: DAMIAN ABRAHAM on [facility] Jul 11, 2023 2:47:17 PM EST Normal [facility] Comment on above: Order Comment: Injur y/Trauma or Illness?:Injury/Trauma How long have you had these symptoms (acute/chronic)?:Acute Reason for exam?:pain 5th metacarpal History of cancer?:n Surgeries, chemotherapy, or radiation?:n Type of Exam?:Initial Mechanism of injury?:punched a punching bag Emergency Department Summary on 07-04-2023 Emergency Department Summary [facility] Medical Records Department [address] [place] [address] Emergency Department Summary 07/04/23 MR#: [id number] Acct: [id number] Name: KO GALINDO Rep #: [id number] : 1995 28 From: Demetrio Michaels DO PCP: Dr. Charly Nassar MD Status:DEP ER Location: ED HPI History of Present Illness Chief Complaint: Anxiety Informant: patient Narrative Narrative: Patient is a 28-year-old female with past medical history of bulimia anorexia bipolar disorder and anxiety. She states she has 50 milligrams of Vistaril prescribed secondary to her anxiety. She reports has been dealing with a weird back pain and was seen in the ER few days prior secondary to it. She states today she began feeling short of breath and lightheaded and dizzy and she took her Vistaril. She states it did not work within a short timeframe and she had concerned that this could be lungs are cardiac and therefore she comes to the hospital for evaluation. Patient denies any family history of cardiac disease at young age she denies any history of DVT or PE. Denies any illicit drug use or excessive stimulant use. She does state that after waiting out in triage to make it back to her room she does feel much better at this time with almost complete resolution of symptoms. [facility] Medical History Bipolar disorder Home Medications benztropine 0.5 mg tablet 0.5 mg PO DAILY PRN muscle spasm 02/17/23 [History Last Taken Unknown] lamotrigine 100 mg tablet 100 mg PO Q12H 02/17/23 [History Last Taken 06/29/23] omeprazole 20 mg capsule,delayed release 20 mg PO DAILY #30 CAPSULES 04/01/23 [Rx Last Taken 06/29/23] sucralfate 1 gram tablet 1 g PO ACHS 06/30/23 [History Last Taken 06/29/23] buspirone 7.5 mg tablet 7.5 mg PO BID 30 days #60 tabs 07/04/23 [Rx Last Taken Unknown] Allergy/AdvReac Type Severity Reaction Status Date / Time acetaminophen Allergy Vomiting Verified 07/03/23 22:44 gluten Allergy Vomiting Verified 07/03/23 22:44 Social History (Updated 04/01/23 @ 11:[address] Rishi Rocha, DO) Smoking Status: Current every day smoker tobacco type: e-cigarettes substance use type: marijuana ROS ROS ED Constitutional Constitutional ED: Denies chills or fever(s) Eyes Eyes: Denies change in vision ENT ENT ED: Denies sore throat Cardiovascular Cardiovascular: Reports racing heartbeat; Denies chest pain or palpitations Respiratory/Chest Respiratory/Chest: Reports dyspnea; Denies cough Gastrointestinal Gastrointestinal: Reports nausea; Denies abdominal pain, diarrhea or vomiting Genitourinary Genitourinary ED: Denies dysuria Musculoskeletal Musculoskeletal: Reports back pain; Denies myalgias Integumentary Denies rash Neurologic Neurologic: Denies headache(s) Psychiatric Psychiatric: Reports anxiety Hematologic/Lymphatic Hematologic/Lymphatic: Denies easy bleeding or easy bruising EXAM Physical Exam Const Vital Signs: 07/03/23 22:42 Temperature 98.3 F Temperature Source Temporal Pulse Rate 102 H Respiratory Rate 18 Blood Pressure 152/90 H Blood Pressure Mean 110 Pulse Ox 98 Oxygen Delivery Method Room Air Positive well nourished and well developed General Appearance ED: well developed; Negative for pallor HEENT HEENT Narrative: Normocephalic atraumatic Eyes PERRL and EOMs intact bilaterally General Eye ED: Negative for scleral icterus Neck supple Neck Narrative: No nuchal rigidity or meningeal signs present Resp normal respiratory effort and clear to auscultation bilaterally Cardio regular rate and regular rhythm Rate: other Other Details: Radial and carotid pulses are equal and symmetric Heart is regular rate and rhythm without murmurs rubs or gallops Extremity normal to inspection Extremity Narrative: No asymmetric edema no pitting edema negative Homans' sign bilaterally Neuro oriented x3, CN's II-XII intact bilaterally and no sensory deficits noted Sensorium / Orientation: alert Motor Exam: strength 5/5 throughout Psych mental status grossly normal Skin no rashes or lesions noted General Skin Exam: Negative for jaundice or pallor MDM MDM MDM Narrative Medical decision making narrative: Patient presented to the ER hypertensive and just slightly tachycardic. She reported multiple symptoms that based on her age and past medical history most consistent with anxiety reaction. Differential diagnosis is for cardiac dysrhythmia kidney stone versus UTI versus pyelonephritis versus DVT/PE versus acute coronary syndrome. I discussed with patient that she is low risk for any of these diagnoses especially with her recent workup. I did offer repeat laboratory studies to ensure that there is no severe electrolyte abnormality and cardiac dysf (more content not included)... Normal [facility] Absolute lymphocyte countOrd ered By: Devynradames Watkinso on 06-30-2023 Lymphocytes Auto (Unsp spec) [#/Vol] 2.40 10*3/uL 0.83-4.51 [facility] Basophil percentageOrdered B y: Devynradames Ramos on 06-30-2023 Basophils/100 WBC (Bld) 0.8 % 0-1 [facility] Eosinophils/100 WBC (Bld) 1.0 % 0-5 [facility] Neutrophils (Bld) [#/Vol] 4.4 10*3/uL 2.0-7.7 [facility] Neutrophils/100 WBC (Bld) 60.1 % 47-70 [facility] WBC (Bld) [#/Vol] 7.3 10*3/uL 4.4-11.0 [facility] Blood erythrocytes count (nu mber/volume)Ordered By: Devynradames Ramos on 06-30-2023 RBC (Bld) [#/Vol] 4.20 10*6/uL 4.2-5.4 [facility] Blood hemoglobin measurement (mass/volume)Ordered By: Devynradames Ramos on 06-30-2023 Hemoglobin (Bld) [Mass/Vol] 13.2 g/dL 12.0-15.0 [facility] Blood lymphocytes/100 leukoc ytesOrdered By: Devynradames Ramos on 06-30-2023 Lymphocytes/100 WBC (Bld) 33.0 % 19-41 [facility] Blood monocytes/100 leukocyt esOrdered By: Devynradames Ramos on 06-30-2023 Monocytes/100 WBC (Bld) 4.8 % 0-10 [facility] Blood platelet mean volumeOr dered By: Devynradames Ramos on 06-30-2023 Platelet mean volume (Bld) [Entitic vol] 10.3 fL 6.2-12.0 [facility] CBC W/Diff, Automatedon 06-11 Absolute Lymph 2.40 X10 3/uL Normal 0.83-4.51 [facility] Comment on above: Performed By: #### L 100.0100 ####[facility] [address] [place], [address] Absolute Neut 4.4 X10 3/uL Normal 2.0-7.7 [facility] Comment on above: Performed By: #### L 100.0100 ####[facility] [address] [place], [address] Basophils/100 WBC (Bld) 0.8 % Normal 0-1 [facility] Comment on above: Performed By: #### L 100.0100 ####[facility] [address] [place], [address] Eosinophils/100 WBC (Bld) 1.0 % Normal 0-5 [facility] Comment on above: Performed By: #### L 100.0100 ####[facility] [address] [place], [address] Erythrocyte distribution width (RBC) [Ratio] 12.8 % Normal 11.6-14.6 [facility] Comment on above: Performed By: #### L 100.0100 ####[facility] [address] [place], [address] Hematocrit (Bld) [Volume fraction] 39.6 % Normal 37-47 [facility] Comment on above: Performed By: #### L 100.0100 ####[facility] [address] [place], [address] Hemoglobin (Bld) [Mass/Vol] 13.2 g/dL Normal 12.0-15.0 [facility] Comment on above: Performed By: #### L 100.0100 ####[facility] [address] [place], [address] IG% 0.300 Normal 0.0-0.9 [facility] Comment on above: Result Comment: IG% - Immature Granulocytes (promyelocytes, myelocytes and metamyelocytes) > 1% indicates that a LEFT SHIFT is Present. Performed By: #### L 100.0100 ####[facility] [address] [place], [address] Lymphocytes/100 WBC (Bld) 33.0 % Normal 19-41 [facility] Comment on above: Performed By: #### L 100.0100 ####[facility] [address] [place], [address] MCH (RBC) [Entitic mass] 31.4 pg Normal 27.0-32.0 [facility] Comment on above: Performed By: #### L 100.0100 ####[facility] [address] [place], [address] MCHC (RBC) [Mass/Vol] 33.3 g/dL Normal 32-36 [facility] Comment on above: Performed By: #### L 100.0100 ####[facility] [address] [place], [address] MCV (RBC) [Entitic vol] 94.3 fL Normal 81-99 [facility] Comment on above: Performed By: #### L 100.0100 ####[facility] [address] [place], [address] Monocytes/100 WBC (Bld) 4.8 % Normal 0-10 [facility] Comment on above: Performed By: #### L 100.0100 ####[facility] [address] [place], [address] Neutrophils/100 WBC (Bld) 60.1 % Normal 47-70 [facility] Comment on above: Performed By: #### L 100.0100 ####[facility] [address] [place], [address] Nucleated RBC (Bld) [#/Vol] 0 10*3/uL Normal 0-5 [facility] Comment on above: Performed By: #### L 100.0100 ####[facility] [address] [place], [address] Platelet mean volume (Bld) [Entitic vol] 10.3 fL Normal 6.2-12.0 [facility] Comment on above: Performed By: #### L 100.0100 ####[facility] [address] [place], [address] Platelets (Bld) [#/Vol] 321 10*3/uL Normal 150-450 [facility] Comment on above: Performed By: #### L 100.0100 ####[facility] [address] [place], [address] RBC (Bld) [#/Vol] 4.20 10*6/uL Normal 4.2-5.4 [facility] Comment on above: Performed By: #### L 100.0100 ####[facility] [address] [place], [address] RDW SD 44.5 fl High 35.1-43.9 [facility] Comment on above: Performed By: #### L 100.0100 ####[facility] [address] [place], [address] WBC (Bld) [#/Vol] 7.3 10*3/uL Normal 4.4-11.0 [facility] Comment on above: Performed By: #### L 100.0100 ####[facility] [address] [place], [address] Chest PA and Lateralon 06-30 Chest PA and Lateral [facility] Imaging Services [address] [place] [address] Chest PA and Lateral MR#: [id number] Acct: [id number] Name: KO GALINDO Rep #: [id number] : 1995 F 27 From: Janet Rhoades MD PCP: Dr. Charly Nassar MD Status: [facility] ER Study: Chest PA and Lateral Date of Exam: 06/30/23 Exam# [id number] Ordering Dr: Devyn Ramos MD [id number] STUDY: X-RAY CHEST REASON FOR EXAM: Female, 27 years old. Shortness of breath. TECHNIQUE: Frontal and lateral views of the chest. COMPARISON: None. FINDINGS: The lungs are clear and expanded. There is no demonstrated pleural abnormality. Normal size heart. Normal mediastinum and beronica. Normal visualized pulmonary arteries. Normal visualized aortic arch and descending thoracic aorta. Normal visualized thoracic spine. Normal visualized ribs, clavicles, and shoulders. No abnormality of the visualized soft tissue structures of the upper abdomen. RAD/Chest PA and Lateral IMPRESSION: Normal x-ray examination of the chest. Electronically Signed: Janet Rhoades MD at 15:03 EST , CC: Dr. Charly Nassar MD; Dr. Devyn Ramos MD Warehouse Delivery Driver: Signed Normal [facility] Determination of erythrocyte mean corpuscular volume (MCV)Ordered By: Devyn Ramos on 06-30-2023 MCV (RBC) [Entitic vol] 94.3 fL 81-99 [facility] Emergency Department Summary on 06-30-2023 Emergency Department Summary [facility] Medical Records Department [address] [place] [id number] Emergency Department Summary 06/30/23 MR#: [id number] Acct: [id number] Name: KO GALINDO Rep #: [id number] : 1995 27 From: Devyn Ramos MD PCP: Dr. Charly Nassar MD Status:REG ER Location: ED HPI History of Present Illness Chief Complaint: Shortness of Breath Detail of Chief Complaint: Patient has a multitude of complaints which will be documented in the HPI n Informant: patient Onset/Context/Timing Onset: Days Context: Sudden Onset Timing: Intermittent Quality: Pain Location: Head, anterior chest, right and left flank Current Severity: Mild Maximum Severity: Moderate Worsened by: Nothing Relieved by: Nothing Associated Symptoms Associated Symptoms: Shortness of breath Narrative Narrative: Patient is a 27-year-old woman with history of bipolar affective disorder, presents with shortness of breath, intermittent transient chest pain, intermittent right and left flank pain and intermittent occipital head pain. Symptoms started a couple days ago. What concerned her is that her shortness of breath has not gotten better. She is not on control pills. She has no history of VTE. She has no risk factors for VTE. There is no family history of VTE. Patient presently denies headache. She denies double vision, blurred vision loss of vision. She denies ringing in ears or decreased hearing. She denies rhinorrhea, congestion or sore throat. She denies cough. She denies pleuritic chest pain. She denies abdominal pain, vomiting or diarrhea. She denies urinary symptoms. She denies leg pain, swelling or discoloration. She denies dermatologic lesions or rash. She does have history of GERD. She also has history of bipolar affective disorder. Prior similar symptoms: No Recent Illness/Hospitalizatio n: No [facility] Medical History Bipolar disorder Home Medications benztropine 0.5 mg tablet 0.5 mg PO DAILY PRN muscle spasm 02/17/23 [History Last Taken Unknown] lamotrigine 100 mg tablet 100 mg PO Q12H 02/17/23 [History Last Taken 06/29/23] omeprazole 20 mg capsule,delayed release 20 mg PO DAILY #30 CAPSULES 04/01/23 [Rx Last Taken 06/29/23] sucralfate 1 gram tablet 1 g PO ACHS 06/30/23 [History Last Taken 06/29/23] Allergy/AdvReac Type Severity Reaction Status Date / Time acetaminophen Allergy Vomiting Verified 06/30/23 13:39 gluten Allergy Vomiting Verified 06/30/23 13:39 Social History (Updated 04/01/23 @ 11:[address] Rishi Rocha, ) Smoking Status: Current every day smoker tobacco type: e-cigarettes substance use type: marijuana ROS ROS ED Constitutional Constitutional ED: Denies chills, fever(s), subjective, sweats or weight loss Eyes Eyes: Denies blurry vision, change in vision or diplopia ENT ENT ED: Denies ear pain, rhinorrhea or sore throat Cardiovascular Cardiovascular: Reports chest pain; Denies orthopnea, palpitations, paroxysmal nocturnal dyspnea or racing heartbeat Respiratory/Chest Respiratory/Chest: Reports dyspnea; Denies cough, dyspnea on exertion, orthopnea or paroxysmal nocturnal dyspnea Gastrointestinal Gastrointestinal: Denies abdominal pain, constipation, diarrhea or vomiting Genitourinary Genitourinary ED: Denies dysuria, hematuria or urinary frequency Musculoskeletal Musculoskeletal: Denies arthralgias, back pain, myalgias or neck pain Integumentary Denies abscess, Abrasions or rash Neurologic Neurologic: Reports headache(s); Denies paresthesias or weakness Psychiatric Psychiatric: Denies anxiety Endocrine Endocrinology: Denies cold intolerance or heat intolerance Hematologic/Lymphatic Hematologic/Lymphatic: Reports systems reviewed and no addt'l complaints, except as documented EXAM Physical Exam Const Vital Signs: 06/30/23 13:39 06/30/23 13:54 Temperature 97.5 F L Temperature Source Temporal Pulse Rate 92 Respiratory Rate 18 Respiratory Effort Short of Breath Labored Respiratory Depth Normal Respiratory Pattern Normal Blood Pressure 135/100 H Blood Pressure Mean 111 Pulse Ox 100 Oxygen Delivery Method Room Air Room Air Positive well nourished and well developed General Appearance ED: well developed, NAD and pallor; Negative for cyanotic or diaphoretic HEENT Reports moist mucous membranes HEENT Narrative: Is atraumatic and normocephalic. Ears are normal. Nares are patent. Posterior pharynx erythema is a. Uvula midline. Patient has numerous piercings of her nose. There is no frontal, ethmoid or maxillary sinus tenderness to percussion. Eyes PERRL and EOMs intact bilaterally Eyes Narrative: There is no photophobia. General Eye ED: Negative for pale conjunctiva or scleral icterus Neck no lymphadeno (more content not included)... Normal [facility] Hematocrit Auto (Bld) [Volum e fraction]Ordered By: Devyn Ramos on 06-30-2023 Hematocrit (Bld) [Volume fraction] 39.6 % 37-47 [facility] Laboratory - Hematology and Cell countsOrdered By: Devyn Ramos on 06-30-2023 Erythrocyte distribution width (RBC) [Entitic vol] 44.5 fL 35.1-43.9 [facility] Erythrocyte distribution width (RBC) [Ratio] 12.8 % 11.6-14.6 [facility] Immature granulocytes/100 WBC (Bld) 0.300 % 0.0-0.9 [facility] Comment on above: IG% - Immature Granu locytes (promyelocytes, myelocytes and metamyelocytes) > 1% indicates that a LEFT SHIFT is Present. MCH (RBC) [Entitic mass] 31.4 pg 27.0-32.0 [facility] Nucleated RBC/100 WBC (Bld) [Ratio] 0 % 0-5 [facility] MCHC Auto (RBC) [Mass/Vol]Or dered By: Devyn Ramos on 06-30-2023 MCHC (RBC) [Mass/Vol] 33.3 g/dL 32-36 [facility] Platelets bldOrdered By: Devyn Ramos on 06-30-2023 Platelets (Bld) [#/Vol] 321 10*3/uL 150-450 [facility] XR ESOPHAGRAMon 05-04-2023 [facility] SURGICAL PATHOLOGYon 023 Case Report Surgical Pathology Report Case: [id number] Authorizing Provider: Cheryl Alfaro MD Collected: 04/24/2023 09:22 AM Ordering Location: Ambulatory Surgery Received: 04/24/2023 03:18 PM Pathologist: Jaquelin Rosa MD Specimens: A) - DUODENUM BIOPSY, 3rd portion of Duodenum Bxs B) - ANTRUM (STOMACH) BIOPSY, Antral bx h/h C) - ESOPHAGOGASTRIC JUNCTION BIOPSY, GE junction bx D) - ESOPHAGUS MID BIOPSY [facility] FINAL DIAGNOSIS A. Duodenum, third portion, biopsy: - Small bowel mucosa with no significant diagnostic alteration. - No evidence of celiac disease or enteritis. B. Gastric antrum, biopsy: - Antral mucosa with no significant diagnostic alteration. - No morphologic evidence of Helicobacter pylori organisms. C. Gastroesophageal junction, biopsy: - Inflamed cardiofundic-type mucosa, negative for intestinal metaplasia. - Reactive squamous mucosa with features suggestive of reflux. D. Mid esophagus, biopsy: - Squamous mucosa with no significant diagnostic alteration. - No evidence of esophagitis or eosinophilia. [facility] Gross Description A. DUODENUM BIOPSY Received in formalin are multiple pieces of alaniz, soft tissue aggregating to 1.2 x 0.3 x 0.2 cm. Totally submitted in one cassette. B. ANTRUM (STOMACH) BIOPSY Received in formalin is one piece of alaniz, soft tissue measuring 0.5 x 0.3 x 0.2 cm. Totally submitted in one cassette. C. ESOPHAGOGASTRIC JUNCTION BIOPSY Received in formalin are two pieces of alaniz, soft tissue aggregating to 0.9 x 0.2 x 0.2 cm. Totally submitted in one cassette. D. ESOPHAGUS MID BIOPSY Received in formalin are two pieces of alaniz, soft tissue aggregating to 0.5 x 0.2 x 0.2 cm. Totally submitted in one cassette. SS April 24, 2023 11:05 PM Gross examination performed at [facility], [address] Performing Lab Diagnostic interpretation performed at [facility], [address] [address] CLIA# [id number] Nuclear Medicine Technician: Tereso Henderson M.D. [facility] EGD DIAGNOSTICon 04-24-2023 [facility] Absolute lymphocyte countOrd ered By: Rishi Rocha on 04-01-2023 Lymphocytes Auto (Unsp spec) [#/Vol] 1.65 10*3/uL 0.83-4.51 [facility] Basophil percentageOrdered B y: Rishi Rocha on 04-01-2023 Basophils/100 WBC (Bld) 0.5 % 0-1 [facility] Bilirubin [Mass/Vol] 0.60 mg/dL 0.20-1.00 [facility] Comment on above: For patients on eltr ombopag therapy, use of Dimension Hamler TBIL is not recommended. Chloride [Moles/Vol] 111 mmol/L 98-107 [facility] Eosinophils/100 WBC (Bld) 1.5 % 0-5 [facility] Glucose [Mass/Vol] 98 mg/dL 74-106 [facility] Neutrophils (Bld) [#/Vol] 3.8 10*3/uL 2.0-7.7 [facility] Neutrophils/100 WBC (Bld) 63.5 % 47-70 [facility] Potassium [Moles/Vol] 3.8 mmol/L 3.5-5.1 [facility] Protein [Mass/Vol] 7.6 g/dL 6.4-8.2 [facility] Sodium [Moles/Vol] 142 mmol/L 136-145 [facility] WBC (Bld) [#/Vol] 6.1 10*3/uL 4.4-11.0 [facility] Basophil percentage 0 SEEN /hpf 0-5 [facility] Beta hCG serum qualOrdered B y: Rihsi Rocha on 04-01-2023 Beta HCG ( test) Ql Negative [facility] Bilirubin Test strip Ql (U)O rdered By: Rishi Rocha on 04-01-2023 Bilirubin Ql (U) Negative Negative [facility] Blood erythrocytes count (nu mber/volume)Ordered By: Rishi Rocha on 04-01-2023 RBC (Bld) [#/Vol] 4.16 10*6/uL 4.2-5.4 [facility] Blood hemoglobin measurement (mass/volume)Ordered By: Rishi Rocha on 04-01-2023 Hemoglobin (Bld) [Mass/Vol] 13.5 g/dL 12.0-15.0 [facility] Blood lymphocytes/100 leukoc ytesOrdered By: Rishi Rocha on 04-01-2023 Lymphocytes/100 WBC (Bld) 27.3 % 19-41 [facility] Blood monocytes/100 leukocyt esOrdered By: Rishi Rocha on 04-01-2023 Monocytes/100 WBC (Bld) 6.9 % 0-10 [facility] Blood platelet mean volumeOr dered By: Rishi Rocha on 04-01-2023 Platelet mean volume (Bld) [Entitic vol] 10.6 fL 6.2-12.0 [facility] CBC W/Diff, Automatedon 03-11 Absolute Lymph 1.65 X10 3/uL Normal 0.83-4.51 [facility] Comment on above: Performed By: #### L 501.2450, L100.0100, L700.6800, L300.3900, L300.4310, L500.4050 #### [facility] [address] [place], [address] Absolute Neut 3.8 X10 3/uL Normal 2.0-7.7 [facility] Comment on above: Performed By: #### L 501.2450, L100.0100, L700.6800, L300.3900, L300.4310, L500.4050 #### [facility] [address] [place], [address] Basophils/100 WBC (Bld) 0.5 % Normal 0-1 [facility] Comment on above: Performed By: #### L 501.2450, L100.0100, L700.6800, L300.3900, L300.4310, L500.4050 #### [facility] [address] [place], [address] Eosinophils/100 WBC (Bld) 1.5 % Normal 0-5 [facility] Comment on above: Performed By: #### L 501.2450, L100.0100, L700.6800, L300.3900, L300.4310, L500.4050 #### [facility] [address] [place], [address] Erythrocyte distribution width (RBC) [Ratio] 13.1 % Normal 11.6-14.6 [facility] Comment on above: Performed By: #### L 501.2450, L100.0100, L700.6800, L300.3900, L300.4310, L500.4050 #### [facility] [address] [place], [address] Hematocrit (Bld) [Volume fraction] 39.7 % Normal 37-47 [facility] Comment on above: Performed By: #### L 501.2450, L100.0100, L700.6800, L300.3900, L300.4310, L500.4050 #### [facility] [address] [place], [address] Hemoglobin (Bld) [Mass/Vol] 13.5 g/dL Normal 12.0-15.0 [facility] Comment on above: Performed By: #### L 501.2450, L100.0100, L700.6800, L300.3900, L300.4310, L500.4050 #### [facility] [address] [place], [address] IG% 0.300 Normal 0.0-0.9 [facility] Comment on above: Result Comment: IG% - Immature Granulocytes (promyelocytes, myelocytes and metamyelocytes) > 1% indicates that a LEFT SHIFT is Present. Performed By: #### L 501.2450, L100.0100, L700.6800, L300.3900, L300.4310, L500.4050 #### [facility] [address] [place], [address] Lymphocytes/100 WBC (Bld) 27.3 % Normal 19-41 [facility] Comment on above: Performed By: #### L 501.2450, L100.0100, L700.6800, L300.3900, L300.4310, L500.4050 #### [facility] [address] [place], [address] MCH (RBC) [Entitic mass] 32.5 pg High 27.0-32.0 [facility] Comment on above: Performed By: #### L 501.2450, L100.0100, L700.6800, L300.3900, L300.4310, L500.4050 #### [facility] [address] [place], [address] MCHC (RBC) [Mass/Vol] 34.0 g/dL Normal 32-36 [facility] Comment on above: Performed By: #### L 501.2450, L100.0100, L700.6800, L300.3900, L300.4310, L500.4050 #### [facility] [address] [place], [address] MCV (RBC) [Entitic vol] 95.4 fL Normal 81-99 [facility] Comment on above: Performed By: #### L 501.2450, L100.0100, L700.6800, L300.3900, L300.4310, L500.4050 #### [facility] [address] [place], [address] Monocytes/100 WBC (Bld) 6.9 % Normal 0-10 [facility] Comment on above: Performed By: #### L 501.2450, L100.0100, L700.6800, L300.3900, L300.4310, L500.4050 #### [facility] [address] [place], [address] Neutrophils/100 WBC (Bld) 63.5 % Normal 47-70 [facility] Comment on above: Performed By: #### L 501.2450, L100.0100, L700.6800, L300.3900, L300.4310, L500.4050 #### [facility] [address] [place], [address] Nucleated RBC (Bld) [#/Vol] 0 10*3/uL Normal 0-5 [facility] Comment on above: Performed By: #### L 501.2450, L100.0100, L700.6800, L300.3900, L300.4310, L500.4050 #### [facility] [address] [place], [address] Platelet mean volume (Bld) [Entitic vol] 10.6 fL Normal 6.2-12.0 [facility] Comment on above: Performed By: #### L 501.2450, L100.0100, L700.6800, L300.3900, L300.4310, L500.4050 #### [facility] [address] [place], [address] Platelets (Bld) [#/Vol] 283 10*3/uL Normal 150-450 [facility] Comment on above: Performed By: #### L 501.2450, L100.0100, L700.6800, L300.3900, L300.4310, L500.4050 #### [facility] [address] [place], [address] RBC (Bld) [#/Vol] 4.16 10*6/uL Low 4.2-5.4 [facility] Comment on above: Performed By: #### L 501.2450, L100.0100, L700.6800, L300.3900, L300.4310, L500.4050 #### [facility] [address] [place], [address] RDW SD 46.0 fl High 35.1-43.9 [facility] Comment on above: Performed By: #### L 501.2450, L100.0100, L700.6800, L300.3900, L300.4310, L500.4050 #### [facility] [address] [place], [place], [id number] WBC (Bld) [#/Vol] 6.1 10*3/uL Normal 4.4-11.0 [facility] Comment on above: Performed By: #### L 501.2450, L100.0100, L700.6800, L300.3900, L300.4310, L500.4050 #### [facility] [address] [place], [address] Comprehensive [facility] 04-01-2023 Albumin [Mass/Vol] 3.9 g/dL Normal 3.2-5.0 [facility] Comment on above: Performed By: #### L 501.2450, L100.0100, L700.6800, L300.3900, L300.4310, L500.4050 ####[facility] [address] [place], [address] Albumin/Globulin [Mass ratio] 1.1 {ratio} Normal 0.9-2.4 [facility] Comment on above: Performed By: #### L 501.2450, L100.0100, L700.6800, L300.3900, L300.4310, L500.4050 ####[facility] [address] [place], [address] ALK P 53 U/L Normal 45-117 [facility] Comment on above: Performed By: #### L 501.2450, L100.0100, L700.6800, L300.3900, L300.4310, L500.4050 ####[facility] [address] [place], [address] ALT [Catalytic activity/Vol] 17 U/L Normal 13-56 [facility] Comment on above: Performed By: #### L 501.2450, L100.0100, L700.6800, L300.3900, L300.4310, L500.4050 ####[facility] [address] [place], [address] AST [Catalytic activity/Vol] 9 U/L Low 15-37 [facility] Comment on above: Performed By: #### L 501.2450, L100.0100, L700.6800, L300.3900, L300.4310, L500.4050 ####[facility] [address] [place], [address] Bilirubin [Mass/Vol] 0.60 mg/dL Normal 0.20-1.00 [facility] Comment on above: Result Comment: For patients on eltrombopag therapy, use of Dimension Hamler TBIL is not recommended. Performed By: #### L 501.2450, L100.0100, L700.6800, L300.3900, L300.4310, L500.4050 ####[facility] [address] [place], [address] BUN/CRE 15.3 RATIO Normal 10-20 [facility] Comment on above: Performed By: #### L 501.2450, L100.0100, L700.6800, L300.3900, L300.4310, L500.4050 ####[facility] [address] [place], [address] CA,Total 9.4 mg/dL Normal 8.5-10.1 [facility] Comment on above: Performed By: #### L 501.2450, L100.0100, L700.6800, L300.3900, L300.4310, L500.4050 ####[facility] [address] [place], [address] Chloride [Moles/Vol] 111 mmol/L High 98-107 [facility] Comment on above: Performed By: #### L 501.2450, L100.0100, L700.6800, L300.3900, L300.4310, L500.4050 ####[facility] [address] [place], [address] CO2 [Moles/Vol] 27.0 mmol/L Normal 21.0-32.0 [facility] Comment on above: Performed By: #### L 501.2450, L100.0100, L700.6800, L300.3900, L300.4310, L500.4050 ####[facility] [address] [place], [address] Creatinine [Mass/Vol] 0.91 mg/dL Normal 0.55-1.02 [facility] Comment on above: Result Comment: The validity of the calculated GFR GFRAA in patients over 70 years has not been determined. Clinical correlation is essential. Performed By: #### L 501.2450, L100.0100, L700.6800, L300.3900, L300.4310, L500.4050 ####[facility] [address] [place], [address] ECRCL 77.50 ml/min Normal [facility] Comment on above: Performed By: #### L 501.2450, L100.0100, L700.6800, L300.3900, L300.4310, L500.4050 ####[facility] [address] [place], [address] EST GFR - AA 95 mL/min Normal >60 [facility] Comment on above: Result Comment: Afri can [place]egales[place] GFR Calc Performed By: #### L 501.2450, L100.0100, L700.6800, L300.3900, L300.4310, L500.4050 ####[facility] [address] [place], [address] GAP 4 Low 5-15 [facility] Comment on above: Performed By: #### L 501.2450, L100.0100, L700.6800, L300.3900, L300.4310, L500.4050 ####[facility] [address] [place], [address] GFR/1.73 sq M.predicted among non-blacks MDRD (S/P/Bld) [Vol rate/Area] 79 mL/min/{1.73_m2} Normal >60 [facility] Comment on above: Result Comment: Non- GFR Calc Performed By: #### L 501.2450, L100.0100, L700.6800, L300.3900, L300.4310, L500.4050 ####[facility] [address] [place], [address] Globulin (S) [Mass/Vol] 3.7 g/dL Normal 2.2-4.2 [facility] Comment on above: Performed By: #### L 501.2450, L100.0100, L700.6800, L300.3900, L300.4310, L500.4050 ####[facility] [address] [place], [address] Glucose [Mass/Vol] 98 mg/dL Normal 74-106 [facility] Comment on above: Performed By: #### L 501.2450, L100.0100, L700.6800, L300.3900, L300.4310, L500.4050 ####[facility] [address] [place], [address] Potassium [Moles/Vol] 3.8 mmol/L Normal 3.5-5.1 [facility] Comment on above: Performed By: #### L 501.2450, L100.0100, L700.6800, L300.3900, L300.4310, L500.4050 ####[facility] [address] [place], [address] Sodium [Moles/Vol] 142 mmol/L Normal 136-145 [facility] Comment on above: Performed By: #### L 501.2450, L100.0100, L700.6800, L300.3900, L300.4310, L500.4050 ####[facility] [address] [place], [address] T PROT 7.6 g/dL Normal 6.4-8.2 [facility] Comment on above: Performed By: #### L 501.2450, L100.0100, L700.6800, L300.3900, L300.4310, L500.4050 ####[facility] [address] [place], [address] Urea nitrogen [Mass/Vol] 14 mg/dL Normal 7-18 [facility] Comment on above: Performed By: #### L 501.2450, L100.0100, L700.6800, L300.3900, L300.4310, L500.4050 ####[facility] [address] [place], [address] Determination of erythrocyte mean corpuscular volume (MCV)Ordered By: Rishi Rocha on 04-01-2023 MCV (RBC) [Entitic vol] 95.4 fL 81-99 [facility] Emergency Department Summary on 04-01-2023 Emergency Department Summary [facility] Medical Records Department [address] [place] [address] Emergency Department Summary 04/01/23 MR#: [id number] Acct: [id number] Name: KO GALINDO Rep #: [id number] : 1995 27 From: Rishi Rocha DO PCP: Dr. Charly Nassar MD Status:DEP ER Location: ED HPI HPI - GI History of Present Illness Chief Complaint: Nausea/Vomiting Informant: patient Nausea/Vomiting/Emesis GI Symptom: Positive for Nausea and Vomiting Onset: Today Quality: Positive for Hematemesis Severity: Severe Diarrhea/Melena/Hemato chezia GI Symptom: Positive for Diarrhea; Negative for Melena or Hematochezia Associated Symptoms Associated Symptoms: Negative for Dysuria, Frequency or Hematuria Narrative Narrative: Patient presents with nausea and vomiting that began today. Patient states she has been vomiting up dark blood. Patient denies any abdominal pain. Patient states she has been unable to keep anything down today. Patient states she did have some diarrhea yesterday. Patient denies any melena or hematochezia. Patient denies any abnormal vaginal bleeding or discharge. Patient denies any dysuria, hematuria, or frequency. Patient admits to subjective chills but denies any fevers. Patient states she called her primary care physician who referred her to the emergency department. [facility] Medical History Bipolar disorder Home Medications cephalexin 500 mg capsule 500 mg PO BID 04/06/22 [History Last Taken Unknown] benztropine 0.5 mg tablet 0.5 mg PO DAILY PRN muscle spasm 02/17/23 [History Last Taken Unknown] lamotrigine 100 mg tablet 100 mg PO DAILY 02/17/23 [History Last Taken Unknown] omeprazole 20 mg capsule,delayed release 20 mg PO DAILY #30 CAPSULES 04/01/23 [Rx Last Taken Unknown] ondansetron 4 mg disintegrating tablet 4 mg PO Q8H PRN PRN Nausea #10 tabs 04/01/23 [Rx Last Taken Unknown] Allergy/AdvReac Type Severity Reaction Status Date / Time acetaminophen Allergy Vomiting Verified 04/01/23 11:15 gluten Allergy Vomiting Verified 04/01/23 11:15 Social History (Updated 04/01/23 @ 11:[address] Rishi Rocha, DO) Smoking Status: Current every day smoker tobacco type: e-cigarettes substance use type: marijuana ROS ROS ED Constitutional Constitutional ED: Reports chills and subjective; Denies fever(s) Eyes Eyes: Denies blurry vision or change in vision ENT ENT ED: Reports sore throat; Denies rhinorrhea Cardiovascular Cardiovascular: Reports chest pain; Denies palpitations Respiratory/Chest Respiratory/Chest: Reports cough; Denies dyspnea Gastrointestinal Gastrointestinal: Reports diarrhea, nausea and vomiting; Denies melena Genitourinary Genitourinary ED: Denies dysuria or hematuria Musculoskeletal Musculoskeletal: Denies back pain or neck pain Integumentary Denies abscess or rash Neurologic Neurologic: Denies headache(s) or weakness Allergic/Immunologic Allergic/Immunologic ED: Denies mouth swelling or urticaria EXAM Physical Exam Const Vital Signs: 04/01/23 11:13 Temperature 97.2 F L Temperature Source Temporal Pulse Rate 77 Respiratory Rate 16 Blood Pressure 116/82 H Blood Pressure Mean 93 Pulse Ox 100 Oxygen Delivery Method Room Air Positive well nourished and well developed General Appearance ED: well developed and NAD HEENT Reports moist mucous membranes Neck supple and no JVD Resp normal respiratory effort and clear to auscultation bilaterally Cardio regular rate, regular rhythm and no murmurs GI normal to inspection, nondistended, normoactive bowel sounds Palpation: soft and tender LLQ, RLQ and suprapubic; Negative for guarding or rebound tenderness present Rectal Exam: visual inspection normal, normal sphincter tone and heme negative stool Extremity normal to inspection General Extremety ED: Negative for edema or tenderness General Extremity: Negative for edema Neuro oriented x3, CN's II-XII intact bilaterally, moves all extremities and no sensory deficits noted Sensorium / Orientation: alert Motor Exam: strength 5/5 throughout Psych mental status grossly normal Skin no rashes or lesions noted MDM MDM MDM Narrative Medical decision making narrative: Differential diagnosis includes peptic ulcer disease, duodenal ulcer, anemia, coagulopathy, viral illness, gastroenteritis, pancreatitis, pyelonephritis, and urinary tract infection. CBC will be obtained to assess for leukocytosis and anemia. Comprehensive metabolic profile will be obtained to assess for hepatic function, renal function, and electrolyte abnormality. Lipase will be obtained to assess for pancreatitis. PT with INR and PTT will be obtained to assess for coagulopathy. Urinalysis will be obtained to assess for urinary tract infec (more content not included)... Normal [facility] Hematocrit Auto (Bld) [Volum e fraction]Ordered By: Rishi Rocha on 04-01-2023 Hematocrit (Bld) [Volume fraction] 39.7 % 37-47 [facility] INR in Blood by Coagulation assayOrdered By: Rishi Rocha on 04-01-2023 INR Coag (Bld) [Relative time] 1.0 {INR} [facility] Ketones Test strip Ql (U)Ord ered By: Rishi Rocha on 04-01-2023 Ketones Ql (U) Negative Negative [facility] Laboratory - Chemistry and C hemistry - challengeOrdered By: Rishi Rocha on 04-01-2023 ALP [Catalytic activity/Vol] 53 U/L 45-117 [facility] ALT [Catalytic activity/Vol] 17 U/L 13-56 [facility] CO2 [Moles/Vol] 27.0 mmol/L 21.0-32.0 [facility] Globulin (S) [Mass/Vol] 3.7 g/dL 2.2-4.2 [facility] Lipase [Catalytic activity/Vol] 31 U/L 13-75 [facility] Comment on above: Please note:LIPASE r evised reference range effective 22. New Lipase methodology. Expected to produce lower values than the previous assay method. NEW Reference Range: 13 - 75 U/L Urea nitrogen/Creatinine [Mass ratio] 15.3 mg/mg 10-20 [facility] Laboratory - CoagulationOrde red By: Rishi Rocha on 04-01-2023 aPTT Coag (Bld) [Time] 30.1 s 24.1-36.2 [facility] PT Coag (PPP) [Time] 13.2 s 11.7-14.9 [facility] Laboratory - Hematology and Cell countsOrdered By: Rishi Rocha on 04-01-2023 Erythrocyte distribution width (RBC) [Entitic vol] 46.0 fL 35.1-43.9 [facility] Erythrocyte distribution width (RBC) [Ratio] 13.1 % 11.6-14.6 [facility] Immature granulocytes/100 WBC (Bld) 0.300 % 0.0-0.9 [facility] Comment on above: IG% - Immature Granu locytes (promyelocytes, myelocytes and metamyelocytes) > 1% indicates that a LEFT SHIFT is Present. MCH (RBC) [Entitic mass] 32.5 pg 27.0-32.0 [facility] Nucleated RBC/100 WBC (Bld) [Ratio] 0 % 0-5 [facility] Lipaseon 04-01-2023 Lipase [Catalytic activity/Vol] 31 U/L Normal 13-75 [facility] Comment on above: Result Comment: Treasure caba note: LIPASE revised reference range effective 22. New Lipase methodology. Expected to produce lower values than the previous assay method. NEW Reference Range: 13 - 75 U/L Performed By: #### L 501.2450, L100.0100, L700.6800, L300.3900, L300.4310, L500.4050 ####[facility] [address] [place], [place], [id number] MCHC Auto (RBC) [Mass/Vol]Or dered By: Rishi Rocha on 04-01-2023 MCHC (RBC) [Mass/Vol] 34.0 g/dL 32-36 [facility] Mucus LM Ql (Urine sed)Order ed By: Rishi Rocha on 04-01-2023 Mucus Ql (Urine sed) 0 SEEN /hpf [facility] Nitrite Test strip Ql (U)Ord ered By: Rishi Rocha on 04-01-2023 Nitrite Ql (U) Negative Negative [facility] No Panel InformationOrdered By: Rishi Rocha on 04-01-2023 Estimated Creatinine Clearance Calc 77.50 ml/min [facility] Estimated GFR (MDRD) Amer 95 mL/min >60 [facility] Comment on above: GFR Calc Estimated GFR (MDRD) Non-Af Amer 79 mL/min >60 [facility] Comment on above: Non- GFR Calc Partial Thromboplast Timeon 04-01-2023 aPTT Coag (Bld) [Time] 30.1 s Normal 24.1-36.2 [facility] Comment on above: Performed By: #### L 501.2450, L100.0100, L700.6800, L300.3900, L300.4310, L500.4050 ####[facility] [address] [place], [address] Platelets bldOrdered By: Mago Rocha on 04-01-2023 Platelets (Bld) [#/Vol] 283 10*3/uL 150-450 [facility] ,Serum,hCG Quali.on 04-01-2023 HCG, SERUM QUAL Negative Normal [facility] Comment on above: Performed By: #### L 501.2450, L100.0100, L700.6800, L300.3900, L300.4310, L500.4050 #### [facility] [address] [place], [place], [id number] Protein Test strip Ql (U)Ord ered By: Rishi Rocha on 04-01-2023 Protein Ql (U) Negative Negative [facility] Prothrombin Time w/INRon INR Coag (PPP) [Relative time] 1.0 {INR} Normal [facility] Comment on above: Performed By: #### L 501.2450, L100.0100, L700.6800, L300.3900, L300.4310, L500.4050 #### [facility] [address] [place], [address] PT Coag (PPP) [Time] 13.2 s Normal 11.7-14.9 [facility] Comment on above: Performed By: #### L 501.2450, L100.0100, L700.6800, L300.3900, L300.4310, L500.4050 #### [facility] [address] [place], [place], [id number] Serum or plasma albumin lizet urement (mass/volume)Ordered By: Rishi Rocha on 04-01-2023 Albumin [Mass/Vol] 3.9 g/dL 3.2-5.0 [facility] Serum or plasma albumin/glob ulin mass ratioOrdered By: Rishila Rocha on 04-01-2023 Albumin/Globulin [Mass ratio] 1.1 {ratio} 0.9-2.4 [facility] Serum or plasma calcium lizet urement (mass/volume)Ordered By: Rishi Rocha on 04-01-2023 Calcium [Mass/Vol] 9.4 mg/dL 8.5-10.1 [facility] Serum or plasma creatinine m easurement (mass/volume)Ordered By: Rishi Rocha on 04-01-2023 Creatinine [Mass/Vol] 0.91 mg/dL 0.55-1.02 [facility] Comment on above: The validity of the calculated GFR & GFRAA in patients over 70 years has not been determined. Clinical correlation is essential. Serum or plasma urea nitroge n measurement (mass/volume)Ordered By: Rishi Rocha on 04-01-2023 Urea nitrogen [Mass/Vol] 14 mg/dL 7-18 [facility] Squamous epithelial cells de tection in urine sediment by light microscopyOrdered By: Rishi Rocha on 04-01-2023 Epithelial cells.squamous LM Ql (Urine sed) 0-5 SEEN /hpf 5-10 [facility] Stool Occult Blood iFOBon STOB Normal Reference Ran ge = Negative Immunochemical Fecal Occult Blood (iFOBT) method. Hemoccult Stl Ql IA Limitation: Menstral bleeding, constipation bleeding, bleeding hemorrhoids, and urinary bleeding conditions may interfere with test. Occult Blood Negative Normal [facility] Comment on above: Performed By: #### M 100.7900 #### [facility] [address] [place], [address] Stool gastrointestinal hemog lobin detection by immunologic methodOrdered By: Rishi Rocha on 04-01-2023 Lower GI hemoglobin IA Ql (Stl) [facility] Lower GI hemoglobin IA Ql (Stl) [facility] Thin prep Papanicolaou smear with manual screeningOrdered By: Rishi Rocha on 04-01-2023 Thin prep Papanicolaou smear with manual screening 9 U/L 15-37 [facility] Thin prep Papanicolaou smear with manual screening 4 5-15 [facility] Urinalysis, Completeon 04-01 EPI,SQUAMOUS 0-5 SEEN Normal 5-10 [facility] Comment on above: Order Comment: CLEAN CATCH Performed By: #### L 400.0001 #### [facility] [address] [place], [address] BACTERIA 0 SEEN Normal None Seen [facility] Comment on above: Order Comment: CLEAN CATCH Performed By: #### L 400.0001 #### [facility] [address] [place], [address] Mucus Ql (Urine sed) 0 SEEN Normal [facility] Comment on above: Order Comment: CLEAN CATCH Performed By: #### L 400.0001 #### [facility] [address] [place], [address] RBC 0 SEEN Normal 0-5 [facility] Comment on above: Order Comment: CLEAN CATCH Performed By: #### L 400.0001 #### [facility] [address] [place], [address] WBC 0 SEEN Normal 0-5 [facility] Comment on above: Order Comment: CLEAN CATCH Performed By: #### L 400.0001 #### [facility] [address] [place], [address] Urine blood detectionOrdered By: Rishi Rocha on 04-01-2023 RBC Ql (U) 250 /ul Negative [facility] RBC Ql (U) 0 SEEN /hpf 0-5 [facility] Urine clarityOrdered By: Mago Rocha on 04-01-2023 Clarity (U) Clear Clear [facility] Urine color determinationOrd ered By: Rishi Rocha on 04-01-2023 Color (U) Yellow Yellow [facility] Urine glucose detectionOrder ed By: Rishi Rocha on 04-01-2023 Glucose Ql (U) Normal mg/dl Normal [facility] Urine leukocyte esterase det ection by dipstickOrdered By: Rishi Rocha on 04-01-2023 Leukocyte esterase Test strip Ql (U) Negative Negative [facility] Urine pHOrdered By: Rishi gaxiola on 04-01-2023 pH (U) 7.0 [pH] 5.0 - 8.0 [facility] Urine sediment bacteria coun t by microscopy (number/high power field)Ordered By: Rishi Rocha on 04-01-2023 Bacteria LM.HPF (Urine sed) [#/Area] 0 /[HPF] None Seen [facility] Urine specific gravity measu rementOrdered By: Rishi Rocha on 04-01-2023 Specific gravity (U) [Rel density] 1.005 1.002-1.030 [facility] Urobilinogen Auto test strip Ql (U)Ordered By: Rishi Rocha on 04-01-2023 Urobilinogen Ql (U) Normal mg/dl Normal [facility] Strep A (Throat Rapid NANETTE)on 02-19-2023 S. pyogenes Ag IA Ql (Unsp spec) #1 Penicillin is the drug of choice for Beta Streptococcal infections. For Penicillin allergic patients, Erythromycin may be used. S pyo Ag Throat Ql IF All negative screens will be confirmed with a culture. S pyo Ag Throat Ql IF Normal Reference Range: Negative Kristen, NANETTE method A Disk (Conf. Cult) Beta Hemolytic Strep NOT Group A Rapid Strep A Screen NEGATIVE Streptococcus group C Normal [facility] Comment on above: Performed By: #### M [id number] #### [facility] [address] [place], [address] Emergency Department Summary on 02-18-2023 Emergency Department Summary [facility] Medical Records Department [address] [place] [address] Emergency Department Summary 02/18/23 MR#: [id number] Acct: [id number] Name: KO GALINDO Rep #: [id number] : 1995 27 From: Roger Foster DO PCP: Dr. Charly Nassar MD Status:DEP ER Location: ED HPI History of Present Illness Chief Complaint: Sore Throat Narrative Narrative: 27-year-old female presenting with sore throat. States has been present for couple days. Its only right-sided. She is has trouble swallowing because of pain but she is tolerating her own secretions. No fevers or chills. She states she did get nauseous because of the pain at 1 point but has not thrown up. PFSH PFSH Medical History Bipolar disorder Home Medications cephalexin 500 mg capsule 500 mg PO BID 04/06/22 [History Last Taken Unknown] benztropine 0.5 mg tablet 0.5 mg PO DAILY PRN muscle spasm 02/17/23 [History Last Taken Unknown] lamotrigine 100 mg tablet 100 mg PO DAILY 02/17/23 [History Last Taken Unknown] ondansetron 4 mg disintegrating tablet 4 mg PO Q8H PRN PRN Nausea #20 tabs 02/17/23 [Rx Last Taken Unknown] Allergy/AdvReac Type Severity Reaction Status Date / Time acetaminophen Allergy Vomiting Verified 02/17/23 16:23 gluten Allergy Vomiting Verified 02/17/23 16:23 Social History Smoking Status: Current every day smoker tobacco type: e-cigarettes ROS ROS ED Constitutional Constitutional ED: Denies chills, fever(s) or sweats Eyes Eyes: Denies blurry vision or change in vision ENT ENT ED: Reports sore throat; Denies ear pain Cardiovascular Cardiovascular: Denies chest pain, palpitations or racing heartbeat Respiratory/Chest Respiratory/Chest: Denies cough, dyspnea or sputum Gastrointestinal Gastrointestinal: Denies abdominal pain, constipation, diarrhea, nausea or vomiting Genitourinary Genitourinary ED: Denies dysuria, hematuria or urinary frequency Musculoskeletal Musculoskeletal: Denies arthralgias, myalgias or neck pain Integumentary Denies abscess, Abrasions or rash Neurologic Neurologic: Denies headache(s), paresthesias or weakness Psychiatric Psychiatric: Denies anxiety, depression, suicidal ideation or suicidal thoughts Endocrine Endocrinology: Denies polydipsia or polyuria EXAM Physical Exam Const Vital Signs: 02/17/23 16:21 02/17/23 18:48 02/17/23 20:29 Temperature 98.2 F 98.8 F Temperature Source Temporal Temporal Pulse Rate 80 80 Respiratory Rate 16 16 17 Blood Pressure 114/67 114/67 Blood Pressure Mean 82 82 Pulse Ox 100 99 Oxygen Delivery Method Room Air Room Air 02/17/23 21:33 Temperature Temperature Source Pulse Rate Respiratory Rate 17 Blood Pressure Blood Pressure Mean Pulse Ox Oxygen Delivery Method Positive well nourished General Appearance ED: NAD HEENT Reports TM's clear and moist mucous membranes Tympanic Membrane ED: Yes TM's clear bilateral Throat: posterior oropharynx normal, tonsils normal and uvula midline Eyes PERRL and EOMs intact bilaterally Neck Neck Narrative: Right-sided anterior lymphadenopathy General: tenderness Chest Wall inspection of chest normal Resp normal respiratory effort and clear to auscultation bilaterally Auscultation: Negative for rales, rhonchi or wheezes Cardio regular rate and regular rhythm GI normal to inspection, nondistended, normoactive bowel sounds MDM MDM MDM Narrative Medical decision making narrative: Patient given 10 mg of Decadron and 4 mg of Zofran. I ordered a rapid strep. Her physical exam is only remarkable for right-sided lymphadenopathy but she has not had any systemic signs or symptoms. This could likely be viral as well. Rapid strep negative. patient counseled on using Tylenol and ibuprofen for pain. I will write her for Zofran. Return precautions were discussed. Impression: 1. Sore throat 2. Right cervical and Discharge Plan Triage Chief Complaint: Sore Throat ED Provider: Roger Foster Dx/Rx/DC Orders Instructions: ED Adenitis Cervical No Abx Tx Prescriptions: New ondansetron 4 mg tablet,disintegrating 4 mg PO Q8H PRN PRN (Reason: Nausea) Qty: 20 0RF No Action cephalexin [Keflex] 500 mg Capsule 500 mg PO BID Hold Instructions: Order Completed lamotrigine 100 mg tablet 100 mg PO DAILY benztropine 0.5 mg tablet 0.5 mg PO DAILY PRN (Reason: muscle spasm) Patient Comments: TAKE 1 TABLET BY MOUTH ONCE DAILY NEEDED FOR ABNORMAL MUSCLE MOVEMENTS Primary Care Provider: Charly Nassar Referrals: Charly Nassar MD [Primary Care Provider] - Disposition Disposition: Home, Self Care Discharge Date/Time: 02/07 (more content not included)... Normal [facility] S. pyogenes Ag IF Ql (Throat )Ordered By: Roger Foster on 02-17-2023 S. pyogenes Ag IA Ql (Unsp spec) Streptococcus group C [facility] AMYLASE BLDon 01-28-2023 Amylase [Catalytic activity/Vol] 42 U/L 30 - 104 U/L [facility] CBC W Auto Differential pane l (Bld)on 01-28-2023 Basophils (Bld) [#/Vol] 0.09 10*3/uL <0.11 k/uL [facility] Basophils/100 WBC (Bld) 1.0 % [facility] Differential cell count method Nom (Bld) Auto [facility] Eosinophils (Bld) [#/Vol] 0.14 10*3/uL <0.46 k/uL [facility] Eosinophils/100 WBC (Bld) 1.5 % [facility] Erythrocyte distribution width (RBC) [Ratio] 12.4 % 11.5 - 15.0 % [facility] Hematocrit (Bld) [Volume fraction] 39.5 % 36.0 - 46.0 % [facility] Hemoglobin (Bld) [Mass/Vol] 13.4 g/dL 11.5 - 15.5 g/dL [facility] Immature granulocytes (Bld) [#/Vol] <0.10 k/uL [facility] Immature granulocytes/100 WBC (Bld) 0.2 % [facility] Lymphocytes (Bld) [#/Vol] 1.90 10*3/uL 1.00 - 4.00 k/uL [facility] Lymphocytes/100 WBC (Bld) 20.9 % [facility] MCH (RBC) [Entitic mass] 32.1 pg 26.0 - 34.0 pg [facility] MCHC (RBC) [Mass/Vol] 33.9 g/dL 30.5 - 36.0 g/dL [facility] MCV (RBC) [Entitic vol] 94.5 fL 80.0 - 100.0 fL [facility] Monocytes (Bld) [#/Vol] 0.50 10*3/uL <0.87 k/uL [facility] Monocytes/100 WBC (Bld) 5.5 % [facility] Neutrophils (Bld) [#/Vol] 6.45 10*3/uL 1.45 - 7.50 k/uL [facility] Neutrophils/100 WBC (Bld) 70.9 % [facility] Nucleated RBC (Bld) [#/Vol] <0.01 k/uL [facility] Nucleated RBC/100 WBC (Bld) [Ratio] 0.0 /100 WBC [facility] Platelet mean volume (Bld) [Entitic vol] 10.1 fL 9.0 - 12.7 fL [facility] Platelets (Bld) [#/Vol] 284 10*3/uL 150 - 400 k /uL [facility] RBC (Bld) [#/Vol] 4.18 10*6/uL 3.90 - 5.2 0 m/uL [facility] WBC (Bld) [#/Vol] 9.10 10*3/uL 3.70 - 11. 00 k/uL [facility] Comprehensive metabolic 2000 panelon 01-28-2023 Albumin [Mass/Vol] 4.6 g/dL 3.9 - 4.9 g/dL [facility] ALP [Catalytic activity/Vol] 62 U/L 34 - 123 U/L [facility] ALT [Catalytic activity/Vol] 11 U/L 7 - 38 U/L [facility] Anion gap [Moles/Vol] 8 mmol/L Low 9 - 18 mmol/L [facility] AST [Catalytic activity/Vol] 11 U/L Low 13 - 35 U/L [facility] Bilirubin [Mass/Vol] 0.4 mg/dL 0.2 - 1 .3 mg/dL [facility] Calcium [Mass/Vol] 9.4 mg/dL 8.5 - 10. 2 mg/dL [facility] Chloride [Moles/Vol] 104 mmol/L 97 - 10 5 mmol/L [facility] CO2 [Moles/Vol] 27 mmol/L 22 - 30 mmol/L [facility] Creatinine [Mass/Vol] 0.93 mg/dL 0.58 - 0.96 mg/dL [facility] Estimated Glomerular Filtration Rate 87 mL/min/1.73m >=60 mL/min/1.73m [facility] Glucose [Mass/Vol] 106 mg/dL High 74 - 99 mg/dL [facility] Potassium [Moles/Vol] 4.4 mmol/L 3.7 - 5.1 mmol/L [facility] Protein [Mass/Vol] 7.5 g/dL 6.3 - 8.0 g/dL [facility] Sodium [Moles/Vol] 139 mmol/L 136 - 144 mmol/L [facility] Urea nitrogen [Mass/Vol] 12 mg/dL 7 - 21 mg/dL [facility] HCG QUANTITATIVEon 3 HCG.beta subunit Qn <5.0 mIU/mL [facility] LIPASE BLDon 01-28-2023 Lipase [Catalytic activity/Vol] 26 U/L 16 - 61 U/L [facility] No Panel Informationon 01-28 [facility] EMERGENCY REPORTon 3 EMERGENCY REPORT [facility] EMERGENCY RO[facility] REPORT NAME ACCOUNT SEX AGE ADMIT DISCHARGE PT MED. RECORD# NUMBER DATE DATE TYPE MATEO [id number] F 27 11/30/22 12/01/22 3 KO Da Silva [id number] ROOM: ER DATE OF : 1995 DICTATING PHYSICIAN: Nga Chung ADDENDUM: This 27-year-old female is medically cleared by Dr. Kelley for evaluation for a suicidal ideation. She has been resting comfortably here. She has had some upset stomach for which we gave her Protonix, GI cocktail, and lunch, and she is feeling much better. She is resting comfortably as of 2143 hours. She has been medically cleared. Crisis has been here to see her, and actually they came here at 1825 hours. They are working on a placement issue. There will be no further dictation on this chart. If a pink slip is required of them, I will complete one. If not, they will complete one. If she is volunteering, there may be no pink slips. Furthermore, results of their placement will be on the record. DIAGNOSES: 1. Suicidal ideation. 2. Medically cleared. Dictated By: Nga Chung DO 11/30/22 21:44 JOB #: [id number] Transcribed By: am 12/01/22 13:27 Electronically signed by: E-SIGN NGA CHUNG DO 12/08/22 19:13 Page 1 of 1 KO GALINDO Emergency Room Report Normal [facility] EMERGENCY REPORTon 3 EMERGENCY REPORT [facility] EMERGENCY RO[facility] REPORT NAME ACCOUNT SEX AGE ADMIT DISCHARGE PT MED. RECORD# NUMBER DATE DATE TYPE MATEO [id number] F 27 11/30/22 12/01/22 3 KO Da Silva [id number] ROOM: ER DATE OF : 1995 DICTATING PHYSICIAN: Rodolfo Kelley HISTORY OF PRESENT ILLNESS: The patient came in. She came in and she was very manic. She wanted to kill herself. She did not want to live any longer. She took ibuprofen. She took Ultram, and she also was drinking heavily and got into an argument with her significant other. When she came in, she would not answer any questions other than she wanted to kill herself. PAST MEDICAL HISTORY: She does have a history of bipolar disorder, which she has not been taking medications for. PAST SURGICAL HISTORY: Unknown. SOCIAL HISTORY: She lives locally. She is here with her father, who appears concerned about her. She does drink alcohol. PHYSICAL EXAMINATION: GENERAL: When she came in, she was manic. HEENT: Head is normocephalic and atraumatic. Eyes: Pupils are equal, round, and reactive to light. Nares are patent. Throat has dry oral moisture. HEART: Heart was tachycardic. LUNGS: Lungs are clear to auscultation bilaterally. ABDOMEN: Abdomen is soft, nontender, and nondistended. SKIN: Skin is warm and dry. PSYCHIATRIC: Her thought process is not linear and goal-directed. DIAGNOSTIC DATA: Her tox screen was positive for THC. Her test was negative. Her initial alcohol was 170, and her second alcohol was 29. Her salicylate was unremarkable. Her white count was 16,000, H&H 14 and 42. Her bicarbonate was 17. EMERGENCY DEPARTMENT COURSE AND TREATMENT: We did have to give her medication to sedate herself for her protection and our protection. She was given 5 of Haldol and 2 of Ativan, and after that she rested comfortably for many hours. She did awake. She is much more cooperative. We did get blood work on her. She received many liters of fluid. DIAGNOSES: 1. Suicidal ideation. 2. Mental health crisis. PLAN/DISPOSITION: She will be endorsed to Dr. Chung at shift change. Critical Care Page 1 of 2 KO GALINDO Emergency Room Report KO GALINDO : 1995 time was 35 minutes, excluding billable procedures. Dictated By: Rodolfo Kelley DO 11/30/22 19:17 JOB #: [id number] Transcribed By: am 12/01/22 12:21 Electronically signed by: ARACELI Kelley DO 12/03/22 08:54 Page 2 of 2 KO AGLINDO Emergency Room Report Normal [facility] CORONAVIRUS (SARS) ANTIGEN T ESTon 12-01-2022 EXTERNAL QC DONE? YES Normal [facility] Comment on above: Performed By: #### [id number] #### [facility],[address] [place] [address] INTERNAL CONTROL PASS Normal [facility] Comment on above: Performed By: #### 2 [id number] #### [facility],[address] [place], [place] [id number] SARS ANTIGEN Negative Normal NORMAL: NEGATIVE [facility] Comment on above: Performed By: #### 2 [id number] #### [facility],[address] [place] [address] SEND TO ? YES Normal [facility] Comment on above: Result Comment: SARS -CoV-2 THIS TEST IS BEING USED UNDER THE FDA EUA PROCEDURE. THIS ASSAY HAS BEEN VALIDATED AT [facility] FOR USE WITH NASAL AND NASOPHARYNGEAL SWAB SPECIMENS. INTERPRETIVE DATA TEST RESULTS SHOULD ALWAYS BE CONSIDERED IN THE CONTEXT OF CLINICAL OBSERVATIONS AND EPIDEMIOLOGICAL DATA IN MAKING FINAL DIAGNOSIS AND PATIENT MANAGEMENT DECISIONS. PATIENT MANAGEMENT SHOULD FOLLOW CURRENT CDC GUIDELINES. THE KRISTEN SARS ANTIGEN NANETTE DOES NOT DIFFERENTIATE BETWEEN SARS-CoV & SARS-CoV-2. A POSITIVE TEST RESULT INDICATES THE PRESENCE OF SARS-CoV-2 NUCLEOCAPSID PROTEIN ANTIGEN, AND THE PATIENT IS INFECTED WITH THE VIRUS AND PRESUMED TO BE CONTAGIOUS. A NEGATIVE TEST RESULT FOR THIS TEST MEANS THAT SARS-CoV-2 NUCLEOCAPSID PROTEIN ANTIGEN WAS NOT PRESENT IN THE SPECIMEN ABOVE THE LIMIT OF DETECTION. HOWEVER, A NEGATIVE RESULT DOES NOT RULE OUT COVID-19 AND SHOULD NOT BE USED THE SOLE BASIS FOR TREATMENT OR PATIENT MANAGEMENT DECISIONS. A NEGATIVE RESULT DOES NOT EXCLUDE THE POSSIBILITY OF COVID-19. NEGATIVE RESULTS, FROM PATIENTS WITH SYMPTOM ONSET BEYOND FIVE DAYS, SHOULD BE TREATED PRESUMPTIVE AND CONFIRMATION WITH A MOLECULAR ASSAY, IF NECESSARY, FOR PATIENT MANAGEMENT, MAY BE PERFORMED. WHEN DIAGNOSTIC TESTING IS NEGATIVE, THE POSSIBLILTY OF A FALSE NEGATIVE RESULT SHOULD BE CONSIDERED IN THE CONTEXT OF A PATIENT'S RECENT EXPOSURES AND THE PRESENCE OF CLINICAL SIGNS AND SYMPTOMS CONSISTENT WITH COVID-19. THE POSSIBILITY OF A FALSE NEGATIVE RESULT SHOULD ESPECIALLY BE CONSIDERED IF THE PATIENT'S RECENT EXPOSURES OR CLINICAL PRESENTATION INDICATE THAT COVID-19 IS LIKELY, AND DIAGNOSTIC TESTS FOR OTHER CAUSES OF ILLNESS (e.g., OTHER RESPIRATORY ILLNESS) ARE NEGATIVE. IF COVID-19 IS STILL SUSPECTED BASED ON EXPOSURE HISTORY TOGETHER WITH OTHER CLINICAL FINDINGS, RE-TESTING SHOULD BE CONSIDERED BY HEALTHCARE PROVIDERS IN CONSULTATION WITH PUBLIC HEALTH AUTHORITIES. Performed By: #### 2 11858 #### [place] [address] ACETAMINOPHENon 11-30-2022 Acetaminophen [Mass/Vol] ug/mL Low 10.0 - 30.0 [facility] Comment on above: Performed By: #### 2 97387 #### [place] [id number] ALCOHOL-BLOOD MEDICALon 11-09 Ethanol [Mass/Vol] 29 mg/dL Normal 0 - 50 [facility] Comment on above: Performed By: #### 2 40662 #### [place] [address] Ethanol [Mass/Vol] 130 mg/dL High 0 - 50 [facility] Comment on above: Performed By: #### 2 79324 #### [place] [id number] CBC + DIFFon 11-30-2022 Baso # 0.00 x10EE3/UL Normal 0.00 - 0.10 [facility] Comment on above: Performed By: #### 2 38942 #### [address],[place] [address] Basophils/100 WBC (Bld) 0.2 % Normal 0.0 - 2.0 [facility] Comment on above: Performed By: #### 2 14766 #### [facility],[address] [place] [address]873 CBC + DIFF Normal [facility] Comment on above: Result Comment: CBC- COMPLETE BLOOD COUNT Performed By: #### 2 66708 #### [facility],[address] [place] [address]9469 EO # 0.00 x10EE3/UL Normal 0.00 - 0.50 [facility] Comment on above: Performed By: #### 2 13965 #### [facility],[address] [place] [address]304 Eosinophils/100 WBC (Bld) 0.2 % Normal 0.0 - 7.0 [facility] Comment on above: Performed By: #### 2 11394 #### [facility],[address] [place] [address]5924 Erythrocyte distribution width (RBC) [Ratio] 13.9 % Normal 12.0 - 15.6 [facility] Comment on above: Performed By: #### 2 03151 #### [facility],[address] [place] [address]508 Hematocrit (Bld) [Volume fraction] 42.6 % Normal 34.0 - 46.0 [facility] Comment on above: Performed By: #### 2 60948 #### [facility],[address] [place] [address] 83468 Hemoglobin (Bld) [Mass/Vol] 14.3 g/dL Normal 12.0 - 16.0 [facility] Comment on above: Performed By: #### 2 71170 #### [facility],[address] [place] [address] 53287 Lymph # 1.80 x10EE3/UL Normal 0.80 - 2.80 [facility] Comment on above: Performed By: #### 2 99840 #### [facility],[address] [place] [address] 88740 Lymphocytes/100 WBC (Bld) 11.0 % Low 20.0 - 45.0 [facility] Comment on above: Performed By: #### 2 94490 #### [facility],[address] [place] [address] 62658 MANUAL DIFF N/A Normal [facility] Comment on above: Performed By: #### 2 67994 #### [facility],[address] [place], [place] [phone] MCH (RBC) [Entitic mass] 32 pg Normal 27 - 33 [facility] Comment on above: Performed By: #### 2 04702 #### [place] [address] MCHC 34 X10 3 Normal 32 - 36 [facility] Comment on above: Performed By: #### 2 59050 #### [facility],[address] [place] [address]507 MCV (RBC) [Entitic vol] 96 fL Normal 80 - 99 [facility] Comment on above: Performed By: #### 2 01796 #### [facility],[address] [place] [address]694 [place] # 0.90 x10EE3/UL Normal 0.20 - 1.00 [facility] Comment on above: Performed By: #### 2 42012 #### [facility],[address] [place] [address] 52082 MONOS % 5.6 % Normal 0.0 - 10.0 [facility] Comment on above: Performed By: #### 2 82931 #### [facility],[address] [place] [address] 87338 Morphology Mihir (Bld) [Interp] N/A Normal [facility] Comment on above: Performed By: #### 2 45565 #### [facility],[address] [place] [address] 30660 Neut # 13.30 x10EE3/UL High 1.50 - 7.10 [facility] Comment on above: Performed By: #### 2 28691 #### [facility],[address] [place] [address]604 Neutrophils/100 WBC (Bld) 83.0 % High 46.0 - 76.0 [facility] Comment on above: Performed By: #### 2 79000 #### [address] [address] PLATELET 381 x10EE3/UL Normal 150 - 450 [facility] Comment on above: Performed By: #### 2 46108 #### [address] [address] Platelet mean volume (Bld) [Entitic vol] 8.6 fL Normal 6.6 - 10.5 [facility] Comment on above: Result Comment: AUTO MATED DIFFERENTIAL Performed By: #### 2 57537 #### [address] [address] RBC 4.46 x 10EE6/UL Normal 4.10 - 5.30 [facility] Comment on above: Performed By: #### 2 98324 #### [address] [address] WBC 16.0 x 10EE3/UL High 4.5 - 10.8 [facility] Comment on above: Performed By: #### 2 97804 #### [address] [address] CMP with eGFRon 11-30-2022 AGE 27 years Normal [facility] Comment on above: Performed By: #### 2 68111 #### [address] [address] Albumin [Mass/Vol] 4.4 g/dL Normal 3.4 - 5.0 [facility] Comment on above: Performed By: #### 2 33218 #### [facility],[address] [place] [address] 77843 Albumin/Globulin [Mass ratio] 1.0 {ratio} Normal 0.9 - 1.6 [facility] Comment on above: Performed By: #### 2 68055 #### [facility],[address] [place] [address] 11191 ALK PHOS 74 U/L Normal 46 - 116 [facility] Comment on above: Performed By: #### 2 82821 #### [facility],[address] [place] [address] 34292 ALT [Catalytic activity/Vol] 20 U/L Normal 14 - 59 [facility] Comment on above: Performed By: #### 2 59904 #### [facility],[address] [place] [address]90 Anion gap [Moles/Vol] 24 mmol/L High 10 - 20 [facility] Comment on above: Performed By: #### 2 35190 #### [facility],[address] [place] [address] 51711 AST [Catalytic activity/Vol] 20 U/L Normal 13 - 39 [facility] Comment on above: Performed By: #### 2 43973 #### [facility],[address] [place] [address] 91825 B/C RATIO 10 ratio Normal 0 - 30 [facility] Comment on above: Performed By: #### 2 00068 #### [facility],[address] [place] [address]709 Bilirubin [Mass/Vol] 0.7 mg/dL Normal 0.2 - 1.0 [facility] Comment on above: Performed By: #### 2 63085 #### [facility],[address] [place] [address]2853 Calcium [Mass/Vol] 9.3 mg/dL Normal 8.5 - 10.1 [facility] Comment on above: Performed By: #### 2 53053 #### [facility],[address] [place], [place] [phone] Chloride [Moles/Vol] 102 mmol/L Normal 98 - 107 [facility] Comment on above: Performed By: #### 2 31103 #### [facility],[address] [place], [place] [phone] CMP with eGFR Normal [facility] Comment on above: Result Comment: COMP REHENSIVE METABOLIC PANEL Performed By: #### 2 02417 #### [facility],[address] [place] [address] CO2 [Moles/Vol] 17.6 mmol/L Low 21.0 - 32.0 [facility] Comment on above: Performed By: #### 2 47688 #### [facility],[address] [place], [place] [phone] Creatinine [Mass/Vol] 0.89 mg/dL Normal 0.55 - 1.02 [facility] Comment on above: Performed By: #### 2 98447 #### [facility],[address] [place] [address] 07326 GFR/1.73 sq M.predicted among non-blacks MDRD (S/P/Bld) [Vol rate/Area] mL/min/{1.73_m2} Normal 60 - 999 [facility] Comment on above: Performed By: #### 2 26226 #### [facility],[address] [place] [address] Result Comment: ACCO RDING TO THE NATIONAL KIDNEY DISEASE EDUCATION PROGRAM(NKDE), A NORMAL eGFR IS A VALUE GREATER THAN OR EQUAL TO 60 ML/MIN/1.73 SQ METERS. CHRONIC KIDNEY DISEASE: <60mL/MIN/1.73 SQ METERS KIDNEY FAILURE: <15mL/MIN/1.73 SQ METERS THIS TEST SHOULD ONLY BE USED FOR PATIENTS 18 YEARS OF AGE AND OLDER. Globulin (S) [Mass/Vol] 4.2 g/dL High 1.5 - 3.8 [facility] Comment on above: Performed By: #### 2 09841 #### [facility],[address] [place] [address]44 Glucose [Mass/Vol] 97 mg/dL Normal 74 - 106 [facility] Comment on above: Performed By: #### 2 03848 #### [facility],[address] [place] [address] 04366 Potassium [Moles/Vol] 3.7 mmol/L Normal 3.5 - 5.1 [facility] Comment on above: Performed By: #### 2 22086 #### [facility],[address] [place] [address] 30151 Protein [Mass/Vol] 8.6 g/dL High 6.4 - 8.2 [facility] Comment on above: Performed By: #### 2 53161 #### [facility],[address] [place] [address] 20435 Sodium [Moles/Vol] 140 mmol/L Normal 136 - 145 [facility] Comment on above: Performed By: #### 2 72828 #### [facility],[address] [place] [address] 93409 Urea nitrogen [Mass/Vol] 9 mg/dL Normal 7 - 18 [facility] Comment on above: Performed By: #### 2 82322 #### [facility],[address] [place] [address] 43698 DRUG SCREEN URINE MEDICon AMPHETAMINES Negative Normal [facility] Comment on above: Performed By: #### 2 80844 #### [facility],[address] [place] [address] 93869 B-DIAZEPINES Negative Normal [facility] Comment on above: Performed By: #### 2 03448 #### [facility],[address] [place] [address] 14270 BARBITURATES Negative Normal [facility] Comment on above: Performed By: #### 2 73077 #### [facility],[address] [place] [address] 65437 COCAINE Negative Normal [facility] Comment on above: Performed By: #### 2 94779 #### [facility],[address] [place], [place] [phone] DRUG SCREEN URINE MEDIC Normal [facility] Comment on above: Result Comment: DRUG SCREEN - URINE Performed By: #### 2 09502 #### [facility],[address] [place] [address] METHADONE Negative Normal [facility] Comment on above: Performed By: #### 2 82679 #### [facility],[address] [place] [address] OPIATES Negative Normal [facility] Comment on above: Performed By: #### 2 48768 #### [facility],[address] [place], [place] [phone] PCP Negative [facility] Comment on above: Performed By: #### 2 76359 #### [facility],[address] [place], [place] [phone] THC Positive Normal [facility] Comment on above: Result Comment: TRAVON ENTS RECEIVING PROTON PUMP INHIBITORS MAY DEMONSTRATE FALSE POSITIVE THC/CANNABINOID RESULTS. AN ALTERNATIVE CONFIRMATORY METHOD SHOULD BE CONSIDERED TO VERIFY POSITIVE RESULTS. Performed By: #### 2 85533 #### [facility],[address] [place], [place] [phone] URINEon 11-30-2022 Beta HCG ( test) Ql (U) Negative Normal NEGATIVE [facility] Comment on above: Performed By: #### 2 03758 #### [facility],[address] [place], [place] [phone] EXTERNAL QC DONE? YES Normal [facility] Comment on above: Performed By: #### 2 82755 #### [facility],[address] [place] [address] INTERNAL QC PASS Normal [facility] Comment on above: Performed By: #### 2 89701 #### [facility],[address] [place], [place] [phone] SALICYLATEon 11-30-2022 SALICYLATE 0.9 mg/dl Low 2.8 - 20.0 [facility] Comment on above: Result Comment: *PAT IENTS TREATED WITH SULFASALAZINE MAY GENERATE A FALSE HIGH RESULT FOR SALICYLATE. *PATIENTS TREATED WITH SULFAPYRIDINE MAY GENERATE A FALSE LOW RESULT FOR SALICYLATE. Performed By: #### 2 93281 #### [facility],[address] [place] [address] URINALYSISon 11-30-2022 Bilirubin Ql (U) Negative Normal NORMAL: NEGATIVE [facility] Comment on above: Performed By: #### 2 95263 #### [facility],[address] [place], [place] [phone] Clarity (U) clear Normal NORMAL: CLEAR [facility] Comment on above: Performed By: #### 2 43322 #### [facility],[address] [place] [address] 71361 Color (U) tiago Normal NORMAL: YELLOW [facility] Comment on above: Performed By: #### 2 35802 #### [facility],[address] [place] [address] 22957 Glucose Ql (U) NORM Normal NORMAL: NORMAL [facility] Comment on above: Performed By: #### 2 52118 #### [facility],[address] [place] [address] 39089 Hemoglobin Ql (U) Negative Normal NORMAL: NEGATIVE [facility] Comment on above: Performed By: #### 2 22355 #### [facility],[address] [place] [address] 17528 Ketone 50 Abnormal NORMAL: NEGATIVE [facility] Comment on above: Performed By: #### 2 19415 #### [facility],[address] [place] [address] Leukocytes Negative Normal NORMAL: NEGATIVE [facility] Comment on above: Performed By: #### 2 59388 #### [facility],[address] [place] [address] Nitrite Ql (U) Negative Normal NORMAL: NEGATIVE [facility] Comment on above: Performed By: #### 2 02495 #### [facility],[address] [place] [address] pH (U) 5 [pH] Normal NORMAL: 5.0-8.0 [facility] Comment on above: Performed By: #### 2 59612 #### [facility],[address] [place] [address] Protein Ql (U) 30 Abnormal NORMAL: NEGATIVE [facility] Comment on above: Performed By: #### 2 89703 #### [place] [address] Sp [place] 1.025 Normal NORMAL: 1.010-1.030 [facility] Comment on above: Performed By: #### 2 29005 #### [place] [address] Specimen Type Void Normal [facility] Comment on above: Performed By: #### 2 98091 #### [facility],[address] [place] [address] Urinalysis dipstick W Reflex Microscopic panel (U) NOT INDICATED Normal [facility] Comment on above: Performed By: #### 2 01911 #### [place] [address] Urobilinog NORM Normal NORMAL: NORMAL [facility] Comment on above: Performed By: #### 2 94764 #### [place] [address] CBC W Auto Differential pane l (Bld)on 11-14-2022 Basophils (Bld) [#/Vol] 0.06 10*3/uL <0.11 k/uL [facility] Basophils/100 WBC (Bld) 0.5 % C [facility] Differential cell count method Nom (Bld) Auto [facility] Eosinophils (Bld) [#/Vol] 0.10 10*3/uL <0.46 k/uL [facility] Eosinophils/100 WBC (Bld) 0.9 % [facility] Erythrocyte distribution width (RBC) [Ratio] 13.9 % 11.5 - 15.0 % [facility] Hematocrit (Bld) [Volume fraction] 40.6 % 36.0 - 46.0 % [facility] Hemoglobin (Bld) [Mass/Vol] 13.9 g/dL 11.5 - 15.5 g/dL [facility] Immature granulocytes (Bld) [#/Vol] <0.10 k/uL [facility] Immature granulocytes/100 WBC (Bld) 0.2 % [facility] Lymphocytes (Bld) [#/Vol] 2.62 10*3/uL 1.00 - 4.00 k/uL [facility] Lymphocytes/100 WBC (Bld) 23.6 % [facility] MCH (RBC) [Entitic mass] 32.9 pg 26.0 - 34.0 pg [facility] MCHC (RBC) [Mass/Vol] 34.2 g/dL 30.5 - 36.0 g/dL [facility] MCV (RBC) [Entitic vol] 96.0 fL 80.0 - 100.0 fL [facility] Monocytes (Bld) [#/Vol] 0.55 10*3/uL <0.87 k/uL [facility] Monocytes/100 WBC (Bld) 5.0 % C [facility] Neutrophils (Bld) [#/Vol] 7.74 10*3/uL High 1.45 - 7.50 k/uL [facility] Neutrophils/100 WBC (Bld) 69.8 % [facility] Nucleated RBC (Bld) [#/Vol] <0.01 k/uL [facility] Nucleated RBC/100 WBC (Bld) [Ratio] 0.0 /100 WBC [facility] Platelet mean volume (Bld) [Entitic vol] 11.1 fL 9.0 - 12.7 fL [facility] Platelets (Bld) [#/Vol] 295 10*3/uL 150 - 400 k /uL [facility] RBC (Bld) [#/Vol] 4.23 10*6/uL 3.90 - 5.2 0 m/uL [facility] WBC (Bld) [#/Vol] 11.09 10*3/uL High 3.70 - 11 .00 k/uL [facility] Comprehensive metabolic 2000 panelon 11-14-2022 Albumin [Mass/Vol] 4.3 g/dL 3.9 - 4.9 g/dL [facility] ALP [Catalytic activity/Vol] 58 U/L 34 - 123 U/L [facility] ALT [Catalytic activity/Vol] 16 U/L 7 - 38 U/L [facility] Anion gap [Moles/Vol] 11 mmol/L 9 - 18 mmol/L [facility] AST [Catalytic activity/Vol] 19 U/L 13 - 35 U/L [facility] Bilirubin [Mass/Vol] 1.1 mg/dL 0.2 - 1 .3 mg/dL [facility] Calcium [Mass/Vol] 9.8 mg/dL 8.5 - 10. 2 mg/dL [facility] Chloride [Moles/Vol] 103 mmol/L 97 - 10 5 mmol/L [facility] CO2 [Moles/Vol] 25 mmol/L 22 - 30 mmol/L [facility] Creatinine [Mass/Vol] 0.76 mg/dL 0.58 - 0.96 mg/dL [facility] Estimated Glomerular Filtration Rate 111 mL/min/1.73m >=60 mL/min/1.73m [facility] Glucose [Mass/Vol] 73 mg/dL Low 74 - 99 mg/dL [facility] Potassium [Moles/Vol] 4.2 mmol/L 3.7 - 5.1 mmol/L [facility] Protein [Mass/Vol] 7.2 g/dL 6.3 - 8.0 g/dL [facility] Sodium [Moles/Vol] 139 mmol/L 136 - 144 mmol/L [facility] Urea nitrogen [Mass/Vol] 13 mg/dL 7 - 21 mg/dL [facility] LIPASE BLDon 11-14-2022 Lipase [Catalytic activity/Vol] 25 U/L 16 - 61 U/L [facility] HCG QUAL UR B/Oon 11-12-2022 status Negative neg - pos [facility] Quality Check Yes [facility] CT ABDOMEN PELVIS WITH IV CO NTRAST ONLYon 04-03-2022 CT ABDOMEN PELVIS WITH IV CONTRAST ONLY EXAMINATION: CT ABDOMEN PELVIS WITH IV CONTRAST ONLY HISTORY: Flank pain, kidney stone suspected; UTI, recurrent/complicated (Female) Injury/Trauma or Illness?:Illness/Other How long have you had these symptoms (acute/chronic)?:Acute Reason for exam?:lower abdominal pain since 2pm today, reports flank pain and burning with urination Type of Exam?:Initial Additional signs and symptoms?: COMPARISON: None. TECHNIQUE: IOPAMIDOL 76 % INTRAVENOUS SOLUTION - 75 mL, CT of the abdomen and pelvis performed after the administration of intravenous contrast. Coronal and sagittal reformatted images provided. FINDINGS: Lung bases: No acute abnormality. Liver: Normal. Biliary: Normal Pancreas: Normal Spleen: Normal Adrenal glands: Normal Kidneys: Symmetric enhancement of the kidneys. Few too small to characterize renal hypodensities with no dominant worrisome renal mass. Limited evaluation for nephrolithiasis given use of intravenous contrast but no obvious nephrolithiasis is seen. No hydronephrosis of either kidney. No significant perinephric stranding and no perinephric fluid collection. Ureters: No ureteral dilatation, with the ureters difficult to follow distally. No definite stone along the expected course of the ureters. Urinary bladder: Urinary bladder is decompressed and not well evaluated, with some circumferential urinary bladder wall thickening and slight perivesical inflammatory changes suggested. No bladder stone. No gas within the urinary bladder lumen or wall. Reproductive: Unremarkable for age and technique. No pelvic mass. Lymph nodes: No bulky lymphadenopathy within the abdomen or pelvis. Bowel: No bowel obstruction. No evidence of acute appendicitis. No evidence of acute diverticulitis. Peritoneal space: No pneumoperitoneum or significant ascites. No fluid collections. Vascular: No abdominal aortic aneurysm. Main portal vein, SMV, and renal veins patent without evidence of thrombus. Major central vascular structures otherwise unremarkable for technique. MSK: No inguinal lymphadenopathy. Tiny umbilical hernia which does not contain bowel transitional lumbosacral anatomy with partially lumbarized S1 segment, which has pseudoarticulations with the sacrum and a rudimentary S1/S2 disc. Trace retrolisthesis L5 on lumbarized S1. Mildly exaggerated focal kyphosis at the T11/T12 level with degenerative endplate changes of the lower thoracic spine. Alignment otherwise anatomic. IMPRESSION: 1. Decompressed urinary bladder with findings concerning for cystitis, with evaluation limited by under distension of the urinary bladder. Correlate with urinalysis. No bladder stone or associated abnormal gas. 2. Limited evaluation for urolithiasis due to presence of intravenous contrast. No evident urolithiasis. No obstructive uropathy. No complications from pyelonephritis seen. 3. No evidence of acute appendicitis or acute diverticulitis. 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 [facility] Comment on above: Result Comment: Nega sean for This test was developed and its performance characteristics determined by [facility]'s [facility]. This test has been authorized by FDA under an Emergency Use Authorization (EUA). This test has been validated in accordance with the FDA's Guidance Document Policy for Diagnostics Testing in Laboratories Certified to Perform High Complexity Testing under CLIA prior to Emergency use Authorization for Coronavirus Disease 2019 during the Public Health Emergency issued on October 08, 2019. COVID19 (SARS This test was developed and its performance characteristics determined by [facility]. This test has been authorized by FDA under an Emergency Use Authorization (EUA). This test has been validated in accordance with the FDA's Guidance Document Policy for Diagnostics Testing in Laboratories Certified to Perform High Complexity Testing under CLIA prior to Emergency use Authorization for Coronavirus Disease 2019 during the Public Health Emergency issued on October 08, 2019. CoV2) by PCR. This test was developed and its performance characteristics determined by [facility]. This test has been authorized by FDA under an Emergency Use Authorization (EUA). This test has been validated in accordance with the FDA's Guidance Document Policy for Diagnostics Testing in Laboratories Certified to Perform High Complexity Testing under CLIA prior to Emergency use Authorization for Coronavirus Disease 2019 during the Public Health Emergency issued on October 08, 2019. COVID 19 Source EXTRUSION OPERATOR EXTRUSION OPERATOR Normal [facility] Surgical Tissue Examon 04-12 Surgical Tissue Exam Test performed at [place] [address] NAME: KO GALINDO REQUESTING: CHERYL ALFARO MD FINAL DIAGNOSIS: A) SMALL INTESTINE, SECOND PORTION OF DUODENUM, BIOPSY - NO SIGNIFICANT HISTOPATHOLOGIC DIAGNOSIS. B) STOMACH, ANTRUM, BIOPSY - NO SIGNIFICANT HISTOPATHOLOGIC DIAGNOSIS. NO HISTOLOGIC FEATURES OF HELICOBACTER PYLORI IDENTIFIED BY ROUTINE STAIN. C) COLON, RECTUM, BIOPSIES - NO SIGNIFICANT HISTOPATHOLOGIC DIAGNOSIS. OPERATIVE PROCEDURE: Duodenum biopsy, antrum biopsy, colon biopsy CLINICAL INFORMATION: Hematochezia [K92.1], altered bowel habits [R19.4], nausea [R11.0], postprandial RUQ pain [R10.11] GROSS DESCRIPTION: A) Second portion of duodenum biopsy Received in formalin labeled second portion of duodenum are multiple alaniz soft segments of tissue aggregating to 0.7 x 0.2 x 0.1 cm. The specimens are totally submitted in formalin in one cassette. B) Antrum of stomach biopsy (H. pylori and histology please) Received in formalin labeled antrum of stomach is a alaniz soft segment of tissue measuring 0.4 x 0.2 x 0.1 cm. The specimen is totally submitted in formalin in one cassette. C) Random colon biopsies Received in formalin labeled random colon biopsies are multiple alaniz soft segments of tissue aggregating to 1.7 x 0.3 x 0.1 cm. The specimens are totally submitted in formalin in one cassette. KVB:xiang MAURER M.D. PATHOLOGIST (Electronic signature on file) Signed out: 04/14/2019 14:25 PRINTED: 04/14/2019 Page 1 of 1 Normal [facility] Comment on above: Performed By: #### S URG #### [facility] [address] [place], [place] [address] Urine HCG, Qual.on 9 Beta HCG ( test) Ql (U) Negative Normal Negative [facility] Comment on above: Performed By: #### L HCG2 #### [facility] [address] [place], [place] [address] Vital Signs Date Time Vital Sign Value Performing Clinician Rosanne kamara 07-11-2024 08:18-0500 Body height 160 cm Alexus Alvarez APRN.CALL WORKER Work Phone: [facility] 07-11-2024 08:18-0500 Body mass index (BMI) [Ratio] 22.67 kg/m2 Alexus Alvarez AIR TRAFFIC CONTROL MANAGER.CALL WORKER Work Phone: [facility] 07-11-2024 08:18-0500 Body weight 58.06 kg Alexus Alvarez AIR TRAFFIC CONTROL MANAGER.CALL WORKER Work Phone: [facility] 07-11-2024 08:18-0500 Diastolic blood pressure 64 mm[Hg] Alexus Alvarez AIR TRAFFIC CONTROL MANAGER.CALL WORKER Work Phone: [facility] 07-11-2024 08:18-0500 Systolic blood pressure 106 mm[Hg] Alexus Alvarez AIR TRAFFIC CONTROL MANAGER.CALL WORKER Work Phone: [facility] 10-13-2023 07:33-0500 Body height 161.5 cm Johanny Podlogar AIR TRAFFIC CONTROL MANAGER.CALL WORKER Work Phone: [facility] 10-13-2023 07:33-0500 Body weight 57.7 kg Johanny Podlogar AIR TRAFFIC CONTROL MANAGER.CALL WORKER Work Phone: [facility] 10-13-2023 07:33-0500 Diastolic blood pressure 72 mm[Hg] Johanny Podlogar AIR TRAFFIC CONTROL MANAGER.CALL WORKER Work Phone: [facility] 10-13-2023 07:33-0500 Heart rate 72 /min Johanny Podlogar AIR TRAFFIC CONTROL MANAGER.CALL WORKER Work Phone: [facility] 10-13-2023 07:33-0500 Respiratory rate 18 /min Johanny Podlogar AIR TRAFFIC CONTROL MANAGER.CALL WORKER Work Phone: [facility] 10-13-2023 07:33-0500 SaO2% (BldA) [Mass fraction] 96 % Johanny Bainslogally AIR TRAFFIC CONTROL MANAGER.CALL WORKER Work Phone: [facility] 10-13-2023 07:33-0500 Systolic blood pressure 108 mm[Hg] Johanny Bainslogally AIR TRAFFIC CONTROL MANAGER.CALL WORKER Work Phone: [facility] 09-07-2023 15:47-0500 Respiratory rate 16 /min [facility] 09-07-2023 13:40-0500 Body height 160.02 cm [facility] 09-07-2023 13:40-0500 Body mass index (BMI) [Ratio] 22.4 kg/m2 [facility] 09-07-2023 13:40-0500 Body temperature 97.9 [degF] [facility] 09-07-2023 13:40-0500 Body weight 57.32 kg [facility] 09-07-2023 13:40-0500 Diastolic blood pressure 99 mm[Hg] [facility] 09-07-2023 13:40-0500 Heart rate 105 /min [facility] 09-07-2023 13:40-0500 SaO2% (BldA) [Mass fraction] 99 % [facility] 09-07-2023 13:40-0500 Systolic blood pressure 133 mm[Hg] [facility] 07-10-2023 11:28-0500 Body height 160 cm Alexus Alvarez APRN.CALL WORKER Work Phone: [facility] 07-10-2023 11:28-0500 Body weight 60.24 kg Alexus Alvarez AIR TRAFFIC CONTROL MANAGER.CALL WORKER Work Phone: [facility] 07-10-2023 11:28-0500 Diastolic blood pressure 64 mm[Hg] Alexus Alvarez AIR TRAFFIC CONTROL MANAGER.CALL WORKER Work Phone: [facility] 07-10-2023 11:28-0500 Systolic blood pressure 100 mm[Hg] Alexus Alvarez AIR TRAFFIC CONTROL MANAGER.CALL WORKER Work Phone: [facility] 07-07-2023 08:16-0500 Body weight 58.6 kg Miladis Nassar MD Work Phone: [facility] 07-07-2023 08:16-0500 Diastolic blood pressure 66 mm[Hg] Miladis Nassar MD Work Phone: [facility] 07-07-2023 08:16-0500 Heart rate 93 /min Miladis Nassar MD Work Phone: [facility] 07-07-2023 08:16-0500 Respiratory rate 16 /min Miladis Nassar MD Work Phone: [facility] 07-07-2023 08:16-0500 SaO2% (BldA) [Mass fraction] 98 % Miladis Nassar MD Work Phone: [facility] 07-07-2023 08:16-0500 Systolic blood pressure 108 mm[Hg] Miladis Nassar MD Work Phone: [facility] 07-03-2023 22:42-0500 Body mass index (BMI) [Ratio] 24 kg/m2 [facility] 07-03-2023 22:42-0500 Body temperature 98.3 [degF] [facility] 07-03-2023 22:42-0500 Body weight 59.64 kg [facility] 07-03-2023 22:42-0500 Diastolic blood pressure 90 mm[Hg] [facility] 07-03-2023 22:42-0500 Heart rate 102 /min [facility] 07-03-2023 22:42-0500 Respiratory rate 18 /min [facility] 07-03-2023 22:42-0500 SaO2% (BldA) [Mass fraction] 98 % [facility] 07-03-2023 22:42-0500 Systolic blood pressure 152 mm[Hg] [facility] 06-30-2023 15:23-0500 Diastolic blood pressure 84 mm[Hg] [facility] 06-30-2023 15:23-0500 Heart rate 82 /min [facility] 06-30-2023 15:23-0500 Respiratory rate 18 /min [facility] 06-30-2023 15:23-0500 SaO2% (BldA) [Mass fraction] 99 % [facility] 06-30-2023 15:23-0500 Systolic blood pressure 130 mm[Hg] [facility] 06-30-2023 13:39-0500 Body height 160.02 cm [facility] 06-30-2023 13:39-0500 Body mass index (BMI) [Ratio] 23.1 kg/m2 [facility] 06-30-2023 13:39-0500 Body temperature 97.5 [degF] [facility] 06-30-2023 13:39-0500 Body weight 59.32 kg [facility] 04-24-2023 10:03-0400 Diastolic blood pressure 65 mm[Hg] Cheryl Alfaro MD Work Phone: [facility] 04-24-2023 10:03-0400 Heart rate 56 /min Cheryl Alfaro MD Work Phone: [facility] 04-24-2023 10:03-0400 Respiratory rate 16 /min Cheryl Alfaro MD Work Phone: [facility] 04-24-2023 10:03-0400 SaO2% (BldA) [Mass fraction] 93 % Cheryl Alfaro MD Work Phone: [facility] 04-24-2023 10:03-0400 Systolic blood pressure 111 mm[Hg] Cheryl Alfaro MD Work Phone: [facility] 04-24-2023 08:54-0400 Body temperature 97.39 [degF] Cheryl Alfaro MD Work Phone: [facility] 04-24-2023 08:54-0400 Body weight 61.1 kg Cheryl Alfaro MD Work Phone: [facility] 04-07-2023 15:24-0400 Body height 160 cm Vivian WHIPPLE-C Work Phone: [facility] 04-07-2023 15:24-0400 Body temperature 98.4 [degF] Vivian WHIPPLE-C Work Phone: [facility] 04-07-2023 15:24-0400 Body weight 61.15 kg Vivian Longbons PA-C Work Phone: [facility] 04-07-2023 15:24-0400 Diastolic blood pressure 67 mm[Hg] Vivian Longbons PA-C Work Phone: [facility] 04-07-2023 15:24-0400 Heart rate 91 /min Vivian Longbons PA-C Work Phone: [facility] 04-07-2023 15:24-0400 SaO2% (BldA) [Mass fraction] 96 % Vivian Longbons PA-C Work Phone: [facility] 04-07-2023 15:24-0400 Systolic blood pressure 115 mm[Hg] Vivian Longbons PA-C Work Phone: [facility] 04-03-2023 08:04-0400 Body temperature 97 [degF] Miladis Nassar MD Work Phone: [facility] 04-03-2023 08:04-0400 Body weight 64.23 kg Miladis Nassar MD Work Phone: [facility] 04-03-2023 08:04-0400 Diastolic blood pressure 68 mm[Hg] Miladis Nassar MD Work Phone: [facility] 04-03-2023 08:04-0400 Heart rate 82 /min Miladis Nassar MD Work Phone: [facility] 04-03-2023 08:04-0400 Respiratory rate 16 /min Miladis Nassar MD Work Phone: [facility] 04-03-2023 08:04-0400 SaO2% (BldA) [Mass fraction] 94 % Miladis Nassar MD Work Phone: [facility] 04-03-2023 08:04-0400 Systolic blood pressure 104 mm[Hg] Miladis Nassar MD Work Phone: [facility] 04-01-2023 14:35-0400 Diastolic blood pressure 76 mm[Hg] [facility] 04-01-2023 14:35-0400 Heart rate 70 /min [facility] 04-01-2023 14:35-0400 Respiratory rate 16 /min [facility] 04-01-2023 14:35-0400 SaO2% (BldA) [Mass fraction] 99 % [facility] 04-01-2023 14:35-0400 Systolic blood pressure 128 mm[Hg] [facility] 04-01-2023 11:26-0400 Body mass index (BMI) [Ratio] 25.5 kg/m2 [facility] 04-01-2023 11:26-0400 Body weight 65.4 kg [facility] 04-01-2023 11:13-0400 Body height 160.02 cm [facility] 04-01-2023 11:13-0400 Body temperature 97.2 [degF] [facility] 02-17-2023 21:33-0400 Respiratory rate 17 /min [facility] 02-17-2023 18:48-0400 Body temperature 98.8 [degF] [facility] 02-17-2023 18:48-0400 Diastolic blood pressure 67 mm[Hg] [facility] 02-17-2023 18:48-0400 Heart rate 80 /min [facility] 02-17-2023 18:48-0400 SaO2% (BldA) [Mass fraction] 99 % [facility] 02-17-2023 18:48-0400 Systolic blood pressure 114 mm[Hg] [facility] 02-17-2023 16:21-0400 Body height 160.02 cm [facility] 02-17-2023 16:21-0400 Body mass index (BMI) [Ratio] 25.4 kg/m2 [facility] 02-17-2023 16:21-0400 Body weight 65.03 kg [facility] 01-28-2023 10:31-0400 Body weight 65.77 kg Melida Dick APRN.CNP Work Phone: [facility] 01-28-2023 10:31-0400 Diastolic blood pressure 84 mm[Hg] Melida Riverahof AIR TRAFFIC CONTROL MANAGER.CALL WORKER Work Phone: [facility] 01-28-2023 10:31-0400 Heart rate 80 /min Melida Romerof AIR TRAFFIC CONTROL MANAGER.CALL WORKER Work Phone: [facility] 01-28-2023 10:31-0400 Respiratory rate 16 /min Melida Riverahof AIR TRAFFIC CONTROL MANAGER.CALL WORKER Work Phone: [facility] 01-28-2023 10:31-0400 SaO2% (BldA) [Mass fraction] 96 % Melida Riverahof AIR TRAFFIC CONTROL MANAGER.CALL WORKER Work Phone: [facility] 01-28-2023 10:31-0400 Systolic blood pressure 120 mm[Hg] Melida Riverahof AIR TRAFFIC CONTROL MANAGER.CALL WORKER Work Phone: [facility] 11-12-2022 16:32-0400 Body weight 67.31 kg Miladis Nassar MD Work Phone: [facility] 11-12-2022 16:32-0400 Diastolic blood pressure 78 mm[Hg] Miladis Nassar MD Work Phone: [facility] 11-12-2022 16:32-0400 Heart rate 91 /min Miladis Nassar MD Work Phone: [facility] 11-12-2022 16:32-0400 Respiratory rate 18 /min Miladis Nassar MD Work Phone: [facility] 11-12-2022 16:32-0400 SaO2% (BldA) [Mass fraction] 98 % Miladis Nassar MD Work Phone: [facility] 11-12-2022 16:32-0400 Systolic blood pressure 126 mm[Hg] Miladis Nassar MD Work Phone: [facility] Encounters Encounter Date Encounter Type Care Provider Facility Start: 07-11-2024 End: 07-11-2024 ambulatory MILADIS NASSAR Facility:[facility] Start: 07-11-2024 End: 07-11-2024 Patient encounter procedure Alexus Kim WRENCALL WORKER Work Phone: OB/Gynecology Comment on above: Encounter for gyneco logical examination (general) (routine) without abnormal findings (Primary Dx); Screening for STD (sexually transmitted disease); Fibrocystic breast changes of both breasts Start: 07-11-2024 End: 07-11-2024 Patient encounter status Alexus Kim ROBERT.CALL WORKER Work Phone: [facility] Start: 10-19-2023 [facility] Comment on above: Smoking Cessation Start: 10-13-2023 Telephone encounter Charly Nassar MD Work Phone: [facility] Comment on above: Pharmacy notified Start: 10-13-2023 End: 10-13-2023 ambulatory MILADIS NASSAR Facility:[facility] Start: 10-13-2023 End: 10-13-2023 Patient encounter procedure Johanny Stauffer APRN.CALL WORKER Work Phone: [facility] Comment on above: Routine physical exa mination (Primary Dx); Vaping nicotine dependence, tobacco product; Cellulitis of skin; Bipolar affective disorder, current episode mixed, current episode severity unspecified (HCC); Anxiety and depression Start: 10-13-2023 End: 10-13-2023 Physical examination Johanny Stauffer APRN.CALL WORKER Work Phone: [facility] Work Phone: Start: 09-08-2023 End: 09-08-2023 ambulatory MILADIS NASSAR Facility:[facility] Start: 09-07-2023 End: 09-07-2023 Emergency department patient visit Elias Quezada Facility:[facility] Start: 09-07-2023 End: 09-07-2023 Emergency department patient visit [facility] Work Phone: Start: 09-06-2023 End: 09-06-2023 Emergency department patient visit MILADIS NASSAR [facility] Start: 08-21-2023 End: 08-21-2023 ambulatory MILADIS NASSAR Facility:[id number] Start: 08-12-2023 End: 08-12-2023 ambulatory KAMALJIT GORDON Facility:[facility] Start: 07-28-2023 End: 07-28-2023 ambulatory GABRIEL BARRETT Facility:[facility] Start: 07-24-2023 Telephone encounter Birgit snider PA-C Work Phone: Orthopaedics Comment on above: Schedule Surgery Start: 07-24-2023 End: 07-24-2023 ambulatory MILADIS NASSAR Facility:[facility] Start: 07-24-2023 End: 07-24-2023 Office outpatient new 45 minutes Kamaljit Gordon PA-C Work Phone: Plastic Surgery Comment on above: Closed displaced fra cture of shaft of fifth metacarpal bone of right hand, initial encounter (Primary Dx) Start: 07-22-2023 End: 07-22-2023 ambulatory BIRGIT TURCIOS Facility:[facility] Start: 07-17-2023 End: 07-17-2023 ambulatory MILADIS NASSAR Facility:[facility] Start: 07-17-2023 End: 07-17-2023 Patient encounter procedure Luis Fernando Mcadams Work Phone: Orthopaedics Comment on above: Right hand pain (Lilian belinda Dx); Closed displaced fracture of shaft of fifth metacarpal bone of right hand, initial encounter Start: 07-11-2023 End: 07-11-2023 Emergency department patient visit LUCIA LAURENT [facility] Start: 07-10-2023 End: 07-10-2023 Patient encounter procedure Alexus Alvarez APRN.CALL WORKER Work Phone: OB/Gynecology Comment on above: Encounter for gyneco logical examination (general) (routine) without abnormal findings (Primary Dx); Screening for cervical cancer; Encounter for screening for human papillomavirus (HPV); Screen for STD (sexually transmitted disease); Fibrocystic disease of left breast; PCB (post coital bleeding) Start: 07-10-2023 End: 07-10-2023 Patient encounter status Alexus Alvarez APRN.CALL WORKER Work Phone: [facility] Start: 07-07-2023 End: 07-07-2023 Patient encounter procedure Miladis Nassar MD Work Phone: [facility] Comment on above: Posterior chest pain (Primary Dx); Anxiety; Bipolar affective disorder, current episode mixed, current episode severity unspecified (HCC); Nicotine abuse Start: 07-04-2023 End: 07-04-2023 Emergency department patient visit [facility] Facility:[facility] Start: 07-03-2023 End: 07-04-2023 Emergency department patient visit [facility] Work Phone: Start: 06-30-2023 End: 06-30-2023 Emergency department patient visit [facility] Facility:[facility] Start: 06-30-2023 ambulatory Miladis Nassar MD Work Phone: [facility] Comment on above: chest discomfort Start: 06-30-2023 End: 06-30-2023 Emergency department patient visit [facility] Work Phone: Start: 06-11-2023 Telephone encounter Nishi franklin APRN.CNP Work Phone: Gastroenterology Comment on above: Results Start: 06-10-2023 End: 06-10-2023 Nursing evaluation of patient and report Nurse [facility] Work Phone: Gastroenterology Comment on above: Bloating Start: 05-04-2023 End: 05-04-2023 Subsequent hospital visit by physician [facility] Qb1 (I-Stat) Radiology Comment on above: Nausea and vomiting, unspecified vomiting type [R11.2] Start: 04-24-2023 End: 04-24-2023 Subsequent hospital visit by physician Cheryl Alfaro MD Work Phone: Ambulatory Surgery Comment on above: Gastroesophageal ref lux disease, unspecified whether esophagitis present [K21.9] Start: 04-07-2023 End: 04-09-2023 Patient encounter procedure Vivian Gayle PA-C Work Phone: Gastroenterology Comment on above: Abdominal pain, unsp ecified abdominal location (Primary Dx); Gastroesophageal reflux disease, unspecified whether esophagitis present; Nausea and vomiting, unspecified vomiting type; Hematemesis with nausea; Dysphagia, unspecified type; Odynophagia; Bloating; Nausea Start: 04-03-2023 End: 04-03-2023 Patient encounter procedure Miladis Nassar MD Work Phone: [facility] Comment on above: Nausea and vomiting, unspecified vomiting type (Primary Dx); Hematemesis with nausea; Gastroesophageal reflux disease, unspecified whether esophagitis present; Dysphagia, unspecified type; Odynophagia; Epigastric pain Start: 04-01-2023 Telephone encounter Charly Nassar MD Work Phone: [facility] Comment on above: Gastrointestinal Ble ed; Patient concern Start: 04-01-2023 End: 04-01-2023 Emergency department patient visit Rishila Linclaudia Facility:[facility] Start: 04-01-2023 End: 04-01-2023 Emergency department patient visit [facility] Work Phone: Start: 02-17-2023 End: 02-17-2023 Emergency department patient visit Charly Nassar Facility:[facility] Start: 02-17-2023 End: 02-17-2023 Emergency department patient visit [facility] Work Phone: Start: 01-29-2023 Telephone encounter Melida johnson APRN.CNP Work Phone: [facility] Comment on above: Results (Labs/ US) Start: 01-28-2023 End: 01-28-2023 Subsequent hospital visit by physician [facility] Work Phone: Radiology Comment on above: RUQ pain [R10.11] Start: 01-28-2023 End: 01-28-2023 Patient encounter procedure Melida Dick APRN.CNP [facility] Comment on above: RUQ pain (Primary Dx ); Nausea and vomiting, unspecified vomiting type Start: 11-30-2022 End: 12-01-2022 Emergency department patient visit MILADIS NASSAR [facility] Start: 11-12-2022 End: 11-12-2022 Patient encounter procedure Miladis Nassar MD Work Phone: [facility] Comment on above: Epigastric pain (Lilian trevino Dx); Bulimia nervosa Start: 04-05-2022 ambulatory Lilian Hay RN NURSE O N CALL Comment on above: Blood Pressure; Knee Swelling Start: 04-03-2022 End: 04-03-2022 Emergency department patient visit PHYSICIAN [facility] Procedures Date Procedure Procedure Detail Performing Clinician Start: 10-13-2023 Adult depression screening assessment Alexus Alvarez APRN.CALL WORKER Work Phone: Start: 06-30-2023 Plain chest X-ray Start: 06-10-2023 Breath hydrogen/methane test Vivian gay PA-C Work Phone: Start: 05-04-2023 Radiologic exam esophagus single contrast study Vivian WHIPPLE-C Work Phone: Start: 04-24-2023 Level iv surg pathology gross&microscopic exam Cheryl Alfaro MD Work Phone: Start: 04-24-2023 Esophagogastroduodenoscopy transoral diagnostic Vivian WHIPPLE-C Work Phone: Start: 04-01-2023 Measurement of occult blood in stool specimen using immunoassay Start: 02-17-2023 Streptococcus pyogenes antigen assay Start: 01-28-2023 Us abdominal real time w/image limited Melida Dick APRN.CALL WORKER Work Phone: Start: 11-30-2022 Urinalysis MILADIS NASSAR Comment on above: Result Comment: URINALYSIS Performed By: #### 2 [id number] #### [facility],[address] [place] [address] Start: 11-12-2022 Urine test visual color cmprsn meths Miladis Nassar MD Work Phone: Start: 08-24-2018 Adult depression screening assessment Lilian Hay RN Plan of Treatment Date Care Activity Detail Author Start: 10-08-2030 Urine microalbumin profile DTaP,Tdap,Td Vaccine (2 - Td or Tdap) [facility] Start: 07-10-2026 Screening for malign ant neoplasm of cervix [facility] Start: 07-12-2025 End: 07-12-2025 Patient encounter procedure 07/12/2025 8:15 AM EST Office Visit OB/Gynecology [address] [place] [address] Alexus Alvarez APRN.CALL WORKER [address] [place] [address] Annual OB/Gynecology Comment on above: Annual Start: 10-12-2024 Depression Screening Depression Scre ening [facility] Start: 07-11-2024 End: 10-10-2024 Hepatitis B virus surface Ag [Presence] in Serum [facility] Comment on above: Expected: 07/11/2024 , Expires: 10/10/2024 Start: 07-11-2024 End: 10-10-2024 Hepatitis C virus Ab [Presence] in Serum [facility] Comment on above: Expected: 07/11/2024 , Expires: 10/10/2024 Start: 07-11-2024 End: 10-10-2024 HIV 1+2 Ab [Presence] in Serum or Plasma by Immunoassay [facility] Comment on above: Expected: 07/11/2024 , Expires: 10/10/2024 Start: 07-11-2024 End: 10-10-2024 SYPHILIS TREPONEMAL W/REFLEX [facility] Comment on above: Expected: 07/11/2024 , Expires: 10/10/2024 Start: 07-07-2024 Covid-19 Vaccine (#1) Covid-19 Vacci ne (#1) [facility] Comment on above: Postponed from 12/30 (Declined at this time) Start: 07-07-2024 Covid-19 Vaccine () Covid-19 Vaccine () [facility] Comment on above: Postponed from 04/10 (Declined at this time) Start: 04-10-2024 Covid-19 Vaccine ( season) Covid-19 Vaccine ( season) [facility] Start: 04-10-2024 Influenza vaccination Influenza Vacc ine (#1) [facility] Start: 02-07-2024 Influenza vaccination Influenza Vacc ine (#1) [facility] Comment on above: Postponed from 04/10 (Declined at this time) Start: 09-07-2023 [facility] Start: 07-10-2023 End: 10-09-2023 Hepatitis B virus core IgM Ab [Presence] in Serum [facility] Work Phone: Comment on above: Expected: 07/10/2023 , Expires: 10/09/2023 Start: 07-10-2023 End: 10-09-2023 Hepatitis C virus Ab [Presence] in Serum [facility] Work Phone: Comment on above: Expected: 07/10/2023 , Expires: 10/09/2023 Start: 07-10-2023 End: 10-09-2023 HIV 1+2 Ab [Presence] in Serum or Plasma by Immunoassay [facility] Work Phone: Comment on above: Expected: 07/10/2023 , Expires: 10/09/2023 Start: 07-10-2023 End: 10-09-2023 SYPHILIS TOTAL W/REFLEX [facility] Work Phone: Comment on above: Expected: 07/10/2023 , Expires: 10/09/2023 Start: 07-04-2023 [facility] Start: 04-10-2023 Influenza vaccination C [facility] Start: 04-01-2023 [facility] Start: 02-17-2023 Streptococcus pyogen es antigen assay Group A Streptococcus Rapid Screen [facility] Start: 08-10-2022 DEPRESSION ASSESSMENT DEPRESSION ASS ESSMENT [facility] Start: 04-15-2022 PAP TESTING PAP TESTING [facility] Start: 04-10-2022 Influenza vaccination INFLUENZA (#1) [facility] Start: 08-24-2019 Adult depression screening assessment DEPRESSION SCREENING [facility] Start: 2015 Hepatitis B Vaccine (1 of 3 - 19+ 3-dose series) Hepatitis B Vaccine (1 of 3 - 19+ 3-dose series) [facility] Start: 2015 Urine microalbumin profile [facility] Start: 2010 PEDS TO ADULT TRANSITION ANNUAL ASSESSMENT PEDS TO ADULT TRANSITION ANNUAL ASSESSMENT [facility] Start: 2008 PEDS TO ADULT TRANSITION INITIAL DISCUSSION PEDS TO ADULT TRANSITION INITIAL DISCUSSION [facility] Start: 2002 PNEUMOCOCCAL (1 - PCV) PNEUMOCOCCAL (1 - PCV) [facility] Start: 2002 Pneumococcal vaccination Pneumococcal Vaccine (1 - PCV) [facility] Start: 1996 COVID-19 VACCINE (#1) COVID-19 VACCI NE (#1) [facility] Start: 1996 HEPATITIS B (1 of 3 - 3-dose series) HEPATITIS B (1 of 3 - 3-dose series) [facility] Start: 1996 Hepatitis B Vaccine (1 of 3 - 3-dose series) Hepatitis B Vaccine (1 of 3 - 3-dose series) [facility] End: 04-07-2024 Breath hydrogen/methane test BREATH TEST FRUCTOSE Endoscopy Routine Bloating 1 Occurrences starting 04/07/2023 until 04/07/2024 [facility] Work Phone: Comment on above: 1 Occurrences starti ng 04/07/2023 until 04/07/2024 End: 04-07-2024 BREATH TEST LACTOSE BREATH TEST LACTOSE Endoscopy Routine Bloating 1 Occurrences starting 04/07/2023 until 04/07/2024 [facility] Work Phone: Comment on above: 1 Occurrences starti ng 04/07/2023 until 04/07/2024 BREATH TEST LACTOSE BREATH TEST LACTOSE Endoscopy Routine Bloating 06/10/2023 [facility] Work Phone: Chlamydia trachomatis+Neisseria gonorrhoeae DNA [Presence] in Unspecified specimen by GABRIEL with probe detection GONORRHEA/CHLAMYDIA NAAT Lab Routine Screen for STD (sexually transmitted disease) 07/10/2023 12:[address] [facility] Work Phone: Chlamydia trachomatis+Neisseria gonorrhoeae DNA [Presence] in Unspecified specimen by GABRIEL with probe detection GONORRHEA/CHLAMYDIA NAAT Lab Routine Screening for STD (sexually transmitted disease) Ordered: 07/11/2024 [facility] Work Phone: Comment on above: Ordered: 07/11/2024 End: 04-07-2024 EGD DIAGNOSTIC EGD DIAGNOSTIC Endoscopy Routine Gastroesophageal reflux disease, unspecified whether esophagitis present Nausea and vomiting, unspecified vomiting type Dysphagia, unspecified type Abdominal pain, unspecified abdominal location 1 Occurrences starting 04/07/2023 until 04/07/2024 [facility] Work Phone: Comment on above: 1 Occurrences starti ng 04/07/2023 until 04/07/2024 End: 05-08-2024 Gastric emptying imaging study NM GASTRIC EMPTYING SOLID Radiology Routine Nausea 1 Occurrences starting 04/07/2023 until 05/08/2024 [facility] Work Phone: Comment on above: 1 Occurrences starti ng 04/07/2023 until 05/08/2024 PAP TEST PAP TEST Lab Amol carter Encounter for gynecological examination (general) (routine) without abnormal findings Screening for cervical cancer Encounter for screening for human papillomavirus (HPV) 07/10/2023 12:07 PM [facility] Work Phone: Patient Education [facility] Work Phone: Patient referral [facility] Work Phone: End: 05-06-2024 Radiologic exam esophagus single contrast study XR ESOPHAGRAM Radiology Routine Nausea and vomiting, unspecified vomiting type Nausea 1 Occurrences starting 04/07/2023 until 05/06/2024 [facility] Work Phone: Comment on above: 1 Occurrences starti ng 04/07/2023 until 05/06/2024 TRICHOMONAS VAGINALI S NAAT TRICHOMONAS VAGINALIS NAAT Lab Routine Screen for STD (sexually transmitted disease) 07/10/2023 12:07 PM [facility] Work Phone: TRICHOMONAS VAGINALI S NAAT TRICHOMONAS VAGINALIS NAAT Lab Routine Screening for STD (sexually transmitted disease) Ordered: 07/11/2024 [facility] Comment on above: Ordered: 07/11/2024 UA DIP, URINE (POC) UA DIP, URIN E (POC) Lab Routine Epigastric pain Ordered: 11/12/2022 [facility] Work Phone: Comment on above: Ordered: 11/12/[address] Immunizations Immunization Date Immunization Notes Care Provider Fa cility 10-08-2020 tetanus toxoid, redu gilbert diphtheria toxoid, and acellular pertussis vaccine, adsorbed [facility] 04-15-2019 Human Papillomavirus 9-valent vaccine Lilian Hay RN [facility] Work Phone: 05-24-2009 influenza virus vacc ine, unspecified formulation Vivian Gayle PA-C Work Phone: [facility] Payers Date Payer Category Payer Self-pay [id number] 2022 Unknown [id number] 2021 Unknown [id number] 2021 Unknown [id number] 2020 Medicaid [id number] 2020 Medicaid 0 [id number] 1996 Unknown [id number] 903 1996 Unknown [id number] 902 1996 Unknown [id number] 651 1996 Unknown [id number] 651 Private Health Insurance [facility] [id number] Self-pay SELF PAY BY [employer] REQUEST [id number] [facility] COMMUNITY PLAN [id number] Unknown [id number] 462 Unknown [id number] 462 Unknown [id number] 462 Unknown [id number] 462 Unknown [id number] 462 Social History Date Type Detail Facility Start: 08-24-2018 End: 04-24-2023 Tobacco smoking status NHIS Smokes tobacco daily [facility] Start: 08-10-2014 End: 08-10-2020 History of tobacco use Cigarette Smoker [facility] Start: 08-24-2018 End: 07-18-2020 Cigarettes smoked current (pack per day) - Reported 1 [facility] Start: 08-24-2018 End: 07-10-2023 Tobacco use and exposure Smokeless tobacco non-user [facility] Start: 08-30-2021 End: 07-07-2023 Alcohol intake Current drinker of alcohol (finding) [facility] Start: 04-17-2017 History SDOH Alcohol Comment rarely [facility] Start: 1996 Sex Assigned At Not on file C [facility] Start: 02-17-2023 End: 09-07-2023 Tobacco smoking status AKIS Unknown if ever smoked [facility] Start: 03-28-2020 None [facility] Start: 03-28-2020 Vapor [facility] Start: 1996 Sex Assigned At Female [facility] Start: 07-18-2020 End: 01-28-2023 Tobacco use panel [facility] Adult Depression Screening Assessment 2 [facility] Start: 04-07-2023 End: 07-11-2024 Tobacco smoking status NHIS Ex-smoker [facility] Start: 08-10-2014 End: 08-10-2020 History of tobacco use Current smoker [facility] Start: 04-07-2023 End: 07-11-2024 Tobacco use and exposure User of smokeless tobacco [facility] Start: 04-07-2023 Tobacco [facility]ape [facility] Start: 07-10-2023 End: 07-11-2024 Alcohol intake Lifetime non-drinker (finding) [facility] Start: 08-12-2023 Tobacco Comment vapes [facility] NEGATED: Highlighted row [facility] Medical Equipment Procedure Code Equipment Code Equipment Original Text Equipment Identifier Dates Nail Innate 4.5m m Stainless Steel 40mm Intramedullary Anatomic Reduction - [id number] Start: 07-28-2023 Mental Status Date Assessment Result Facility 09-07-2023 Cognitive function Level Of Cons ciousness Awake;Alert;Appropriate;Follow s Commands [facility] Work Phone: Clinical Notes 04-05-2022 to 07-11-2024 Patient InstructionsAlexus Alvarez APRN.CALL WORKER - 07/11/2024 8:13 AM ESTTelephone Encounter - [facility] ED - 10/19/2023 8:43 AM EDTPodJohanny perez APRN.CALL WORKER - 10/13/2023 7:20 AM EST Note Date & Type Note Facility 07-11-2024 Instructions Alexus Alvarez APRN.CALL WORKER - 07/11/2024 8:27 AM EST Images from the original note were not included. Sirena [facility] [address] [place], [place] [address] Fibrocystic breast change is a common benign [...] always have a good self breast awareness. Psychotherapy Services at [facility] Call Behavioral Health Access Line at [phone] to schedule Individual psychotherapy In-person or virtual Wait time for first evaluation may be 12 or more weeks. Wait list spots may be available. Due to the high volume of patients this option is recommended if you are looking for short term acute symptom coping strategies. 3-916-9-BSGW7DSRB - [facility] Mental Health Hotline If you are in suicidal crisis, please call or text 1-181-035-TALK ( ) or visit the National Suicide Prevention Lifeline website. mchb.tohatchi health care centera.gov If you are in crisis, call 911 or go to your nearest Emergency Department Here are some links for wonderful Providers here in the community and surrounding areas. Do not hesitate to contact their offices, many are offering virtual visits during this time. Psychotherapy Services outside of [facility] Support International Online Provider Directory https://Vitamin Research Products.New Health Sciences/ - can assist in finding providers in your area that might be more extensive then the list below. [facility] - [place], [place] [address] [place] [address] [place] [address] [place] [address] [facility] [address] [place] [address] [facility] [address] [place], [place] [id number] Aria Cruz MD [address] [place], [place] [id number] [facility] [address], [address] [place] [address] [facility] [address] [place] [address] [facility] Counseling Services [place] / [place] [phone]/ [phone] Lilian Bates [address] [facility] [phone] [facility] [place] / [place] [phone] Behavioral health services of [facility] [address] [place] [address]/ dunnellon and daphne [phone] Dorina Dozier, GEORGE, CLC [facility] Workshops, telehealth and at home visits. [phone] [facility] counseling [place] 20 locations [place], [place], [place], [place], [place], [place], [place], [facility], [place], [place], [place], [place], [place], [place], [place], [place], [place] ,[facility], [place], [place],[facility], [facility], [place], [facility], [facility], [place] www.[facility] [phone] Psychotherapy resources outside of [facility] are listed below Light [facility] Psychotherapy Web: https://www.Integrata Security/ Support International Online Provider Directory https://Scotty Gear/ Insight Counseling https://Isarna Therapeutics GmbH/ Partners for Behavioral Health and Wellness Web: https://CareXtend/ ReliSen for Effective Living Web: https://www.Owlet Baby CarelivingAngelList/ LifeStance Web: https://qualifyor.New Health Sciences/location/s hernandez/indiana/ [facility] Web: https://www.signaturehealthinc.or / [facility] Web: https://Zivity.org/ Recovery Resources Mental health and substance abuse help Web: https://www.WeGoOut.flo.do & RESOURCES Support International Direct peer support and connection to professional resources Non-Emergency Helpline Phone: / Text: [phone] Web: https://www..net/ Online Provider Directory: https://Vitamin Research Products.New Health Sciences/ Online Support Meetings: https://www..net/get-he lp/zdl-rsmere-sciztrx-meetings/ MELI Baby and Web Content Developer Services Web: https://Aria Networks/ TVbeat Expert information on medication use during and Text: [phone] Web: https://Abingdon Health/ NATIONAL REGISTRY FOR PSYCHIATRIC MEDICATIONS Currently studying the safety of antidepressants, ADHD medications and atypical antipsychotics taken during TO PARTICIPATE CALL TOLL-FREE: Web: https://[facility].org/re search/pregnancyregistry/ Support Groups: [facility]- Follow on facebook Baby Bistro support group led by [facility] department [facility] Mamas - Support Group [facility].org The POEM support group [phone] Www.poGreen Throttle Gamesonline.org Follow on facebook - POLEDY lizama chapter Online support meetings PSI https://www..net/get-he lp/tds-faejrv-qmqrdnn-meetings/ [facility] mommy and me virtual support group 11:30-1pm Support for mothers and new babies and toddlers [place] childbirth education: Childbirth @cc.org or call [phone] CRISIS: CRISIS HOTLINE [phone], 911 or go to the nearest [facility] [phone] / [facility] [phone] https://www.[facility]chester medical centerrb.org Crisis text line text the word HOME to 083077 [facility] [address] [address] [facility] [address] www.Clean Membranes.New Health Sciences [place] clinical counseling [address] [address] www.Greenlight Technologies [phone] Holding space psychotherapy Angeline Stoner CASE MANAGER CAPTAIN'S ASSISTANT-S [address] [facility] www.Super Technologies Inc. [phone]/ [place] [phone] They all offer virtual. All work with trauma Support groups Online support meetings PSI https://www..net/get-he lp/nor-cxuhfs-yzqaede-meetings/ Here are the support groups they offer: Support of parents of 1 to 4 years old children POEM ( Outreach and Encouragement for Moms) offers free support for mothers experiencing depression, anxiety, and other mood and anxiety disorders. Masks are recommended but not required. No pre-registration required. Babies in arms welcome. meetings now take place on the and Thursday of each month Location: [facility] [address] [place] [address] Room 122 (library room) 7-8:00 p.m. When you enter the [facility] parking lot off of [address] the entrance door closest to our meeting room is on the front of the building toward the right. For those who are more comfortable with a virtual platform, POEM offers online support group options several days of the week. To register for an online group or to find out more about POEM, website at: https://mhaohio.org/get-help/un[facility] medical centerwcap-juxnhl-kemfpx/poem-services/ offer a confidential helpline: private Facebook group is called KERRY Colon Here are the groups they offer: Traumatic childbirth resources: Http://pattch.org/ https://www.aldaCoppertinojames e-Rewards.New Health Sciences/ Name Location (s) Phone # (s) Services Website [facility] Psychotherapy [address] [facility], [place], [place] - [phone]; [address] [facility] [address] [place], [place]- [phone] In-Person GROUPS INDIVIDUAL THERAPY MATERNAL-INFANT MENTAL HEALTH MEDICATION MANAGEMENT PLAY AND ART THERAPY TELETHERAPY https://www.Integrata Security/s ervices/ [facility] Judith LIZAMA? [address] [place], [place] [address] ? [address], [address] [place], [place] [address] ? CLE[place] [address] [place], [place] [address]? Grief Support Groups Individual Grief Counseling Spiritual Care Memorial Events https://lindside.[facility].org/grief-services [facility] [address] [place], [place] [address]; ; Email: [email or web address] Women's Mental Health; Couples Counseling; Trauma (EMDR); Stress Management; Mood and Anxiety Related Disorders- and much more https://www.BeauCoo/ LifeStance Numerous as they have contract providers: access website to find specific providers near you Counseling including CBT and EMDR as well as many more modalities; Medication Management; Telehealth and In-Person https://Vyyo/ Friend Traveler Behavioral Health and Wellness [address] [place] [address]; [phone] Personal, Family and Group Therapy; Psychological Testing and Diagnosis; Medication Management; Life and Career Coaching; Psychoanalysis; Literacy Testing; Yoga and Meditation https://CareXtend/ Fit Mind [place] [address] [address], [place] [address] [address] ; [address] [place] [address], [address] [place] [address]; Office # for both sites: Individual and Couples Counseling https://www.AIRSIS.New Health Sciences/ paymentinsurance.html OCD & Anxiety [facility] [address] [facility], [address], [place] [address]; Specialize in Cognitive-Behavioral Therapy (CBT) for the treatment of anxiety disorders across the lifespan. TELEHEALTH ONLY. https://ocdandanxietycenteroRebelMouse/faqs [facility] [address] [facility] [address]th [place], [address] [place] [address] [facility] [place] [address] [place] [address] [place], [address] [place] [address] [place], [address], [id number] [place] [address] [place], [address] [place] [address] [place], [place], [id number] Transportation Services To minimize patient barriers, [facility] provides transportation services to patients who qualify. If you are unable to get to your appointment at any of our facilities, please let us know. Need help now? Stop by one of our walk-in clinics to establish behavioral health care. Counseling Indvidual, Group, Couples and Family Counseling and EMDR. Medication Management Case Management benefits applications housing assistance Substance abuse treatment Medication assisted treatment https://www.[facility].or g/mental-health/ [facility] OFFICE AT [facility] [address] [place] [address] [facility] [address] [place] [address] [facility] OFFICE [address] [place] [address] TO OFFICE (at [facility]) [address] [place] [address] [facility] EXCHANGE PROGRAM & HIV SCREENING [address] [place] [address] [facility] EXCHANGE PROGRAM [address] [place] [address] Behavioral Health Urgent Care: [facility] Counseling Indvidual and Group Medication Management Case Management benefits applications housing assistance Substance abuse treatment Medication assisted treatment Employment Services/ Job Training [email or web address] [facility] [address] [place], [place] [address]: P: [phone] [address] [facility] [address], [place] [address] P: [phone] Our services include: Addiction Mental Health Treatment Assessment Psychiatry Medical Care Employment Housing Drug and Alcohol Prevention HIV/AIDS Prevention [email or web address] [facility] [place] [address] [place] [id number] [address] [place], [place] [address] [place] [address] [place] [address] [place] [address] [facility] [address] [place] [address] [place] [address] TMS Therapy/ Counseling Psychocological Testing for ADHD Medication Management In-Person/ Telemedicine [email or web address] Memory & Psychological services [address], [place] [address] Neuropsychological Testing For ADHD [email or web address] [facility] Office [address], [place] [id number] [address] [id number] [address] [id number] Providing jzbb-uv-shql and telehealth services. Adult Case Management Community Education and Prevention Employment Outpatient Treatment - Counseling & Psychotherapy Psychiatric Services [email or web address] [facility] [place] [address] [place] [address] El[facility]) [address] [place] [address] Virtual Appointments! Now offering safe and convenient virtual client appointments to anyone in [place]! Individual Therapy Couples/Relationship Therapy Trauma/EMDR Therapy Art Therapy Play Therapy Financial Compliance Examiner Support: Parenting Skills, Parent Child Interaction Therapy, Parent Infant Interaction Therapy Meditation Dietitian/Research And Development Engineer Services Group Therapy Yoga [email or web address] [email or web address]/ Erica Mac [phone] Private Practice: Telehealth Only Specializes in EMDR for Trauma None From [facility]'s Tobacco Cessation website: Our comprehensive smoking [...] help you with your financial plan. Contact [phone] for more information. [place] Tobacco Program Visit [email or web address] or call 1-070-RWZJ-NOW Calcium and Vitamin D Supplementation (from the National Institutes of Health Office of Dietary Supplements 2010) Calcium is required by the body for blood vessel, muscle, hormone and nerve functioning. Most of the body's calcium is stored in the bones and teeth where it supports structure and function. Bone is continuously broken down and reformed. When bone breakdown exceeds formation, especially in postmenopausal women, bone loss can increase the risk of osteoporosis and fractures. In addition to low calcium intake, women who smoke, have a family history of osteoporosis, are thin, or , or who take certain medications such as cancer chemotherapy, seizure mediations and steroids are at increased risk of osteoporosis. The calcium requirements in women change with age. The National Institutes of Health (NIH) recommends: 1000mg elemental calcium for premenopausal women age 19-50 1200mg elemental calcium for postmenopausal women and all women over 50 Milk, yogurt, and cheese are rich natural sources of calcium and are the major food contributors in the [place]. For example, 8oz of milk (whole, lowfat or skim) contains about 300mg calcium, 8oz of yogurt contains 415mg. Nondairy sources include salmon and sardines and vegetables, such as Slovenian cabbage, kale, and broccoli. Foods fortified with calcium include many fruit juices, tofu and cereals. For more food calcium content information, visit http://ods.od.nih.gov/factsheets/ calcium. Calcium supplements come in several different forms. Remember that the recommendations are for millgrams (mg) of elemental calcium which may be less than the total weight of the supplement. The amount of elemental calcium is required to be printed on the label. Calcium carbonate is the least expensive form. It must be taken on a full stomach to be properly absorbed. Some patients may experience gas or constipation. Calcium phosphate and calcium citrate may be taken either with or without food and tend to have less side effects but are generally more expensive. Because of its ability to neutralize stomach acid, calcium carbonate is found in some wcgy-wac-hftbhxr antacid products, such as Tums and Rolaids . Depending on its strength, each chewable pill or softchew provides 200 to 400 mg of elemental calcium. The percentage of calcium absorbed depends on the total amount of elemental calcium consumed at one time. Absorption is highest in doses <500mg. So a woman who takes 1,000mg/day of calcium from supplements should split the dose and take 500mg at two separate times during the day. Too much calcium can cause kidney stones, constipation, difficulty absorbing other nutrients and calcium buildup in blood vessels. Women under 50 should not exceed 2500mg/day (2000mg/day for women over 50) of calcium from food and supplements. Excessive alcohol and caffeine intake can inhibit absorption of calcium. Calcium can reduce the absorption of some medications if taken at the same time of day (bisphosphonates, thyroid medication, Phenytoin and other seizure medications, some antibiotics and iron supplements). Vitamin D promotes calcium absorption in the gut and maintains adequate blood levels of calcium and phosphate for normal bone growth and bone remodeling. Vitamin D also helps regulate cell growth as well as nerve, muscle and immune system function. Vitamin D is produced in the skin as a result of ultraviolet sunlight rays and must be altered in the liver and kidney to become its active form. Recommended intake according to the National Institutes of Health is 600 International Units (IU) for girls and women ages 1-70 and 800 IU for women over 70. Very few foods in nature contain vitamin D. The flesh of fatty fish (such as salmon, tuna, and mackerel) and fish liver oils are among the best sources. Small amounts of vitamin D are found in beef liver, cheese, mushrooms and egg yolks. Most people meet at least some of their vitamin D needs through exposure to sunlight. Season, time of day, length of day, cloud cover, smog, skin melanin content, and sunscreen are among the factors that affect UV radiation exposure and vitamin D synthesis. Despite the importance of the sun for vitamin D synthesis, it is prudent to limit exposure of skin to sunlight and avoid tanning beds. UV radiation is a carcinogen responsible for most of the estimated 1.5 million skin cancers that occur annually in the [place]. Lifetime cumulative UV damage to skin is also responsible for some age-associated dryness and other cosmetic changes. In supplements and fortified foods, vitamin D is available in two forms, D2 (ergocalciferol) and D3 (cholecalciferol). The two are equivalent at normal supplement doses. For women who require high supplement doses because of vitamin D deficiency, D3 may work better to raise blood levels. Some medications can prevent proper absorption of Vitamin D. These include laxatives, corticosteroids like prednisone, the seizure drugs phenobarbital and phenytoin, the weight-loss drug orlistat ( Xenical and AlliTM) and the cholesterol-lowering drug cholestyramine (Questran , LoCholest , and Prevalite ). Talk to your doctor about adjusting your recommended daily vitamin D dosage if you take these medications. You should not exceed 4000 mg of vitamin D supplementation daily unless specifically prescribed by your doctor. documented in this encounter [facility] 07-11-2024 Note HNO ID: [id number] Author: ALEXUS ALVAREZ APRN.CNP Service: ? Author Type: Nurse Practitioner Type: Progress Notes Filed: 07/11/2024 08:49 Note Text: Smooth Plater offered: Patient declinesMiriam Connell is a 29 year old who presents for an annual gynecologic exam without complaints. Menses: cycles every 30-36 days and 5 days of flow. Contraception: none HPV vaccine: Yes Last Pap: 07/20/2023 normal HPV: N/A History of abnormal pap: No Last mammogram: never Sexually active: Yes History of STDS: None Patient concerns for STD exposure: No. Pain with intercourse: Sometimes, positional Exercise: running OB History T1 L1 SAB0 IAB0 Ectopic0 Multiple0 Live Births1 Cash Applications Specialist History LMP: 06/19/2023 (Approximate), Having periods Age at Menarche: Age at First : Age at Menopause: Cash Applications Specialist History Comments: Sexual Activity: Yes; Male Contraception: None PAST MEDICAL HISTORY Diagnosis Date Anxiety Bipolar disorder (HCC) counseling center Broken leg 08/2014 Left Leg Deliberate self-cutting history of Depression GERD (gastroesophageal reflux disease) History of bulimia PAST SURGICAL HISTORY Procedure Laterality Date COLONOSCOPY [...] Social History Tobacco Use Smoking status: Former Current packs/day: 0.00 Average packs/day: 1 pack/day for 6.0 years (6.0 ttl pk-yrs) Types: Cigarettes Start date: 2014 Quit date: 2020 Years since quittin.9 Smokeless tobacco: Current Tobacco comments: vapes Vaping Use Vaping status: current everyday user Substances: Nicotine, Flavoring Devices: [...] skin retraction. Allergies and current medication updated:Yes SENSITIVE EXAM: The sensitive examination was discussed with the Patient or Patient's Authorized Bank Teller Machine Mechanic. As applicable, any other physician, advance practice provider, medical student, or other health professional student that will be observing or involved in the sensitive examination for educational or training purposes was discussed with the Patient or Authorized Bank Teller Machine Mechanic. The Patient or Authorized Bank Teller Machine Mechanic has agreed to proceed with the sensitive examination. (Sensitive examination includes inspection and/or palpation of the breasts, pelvis, prostate and anorectal regions). EXAM: BP 106/64 Ht 5' 3 (1.60m) Wt 128 lb (58.1kg) LMP 06/13/2024 BMI 22.68 kg/(m2). GENERAL: pleasant, female in no apparent distress HEENT: Normocephalic, atraumatic, mucus membranes moist, and no lesions NECK: Supple, full range of motion, no adenopathy, and thyroid normal DERMATOLOGY: Normal, without lesions, non-icteric, and non-hirsute BREAST: soft, non-tender, symmetric, no dominant mass, normal nipple-areolar complex, no lymphadenopathy, and no nipple discharge + fibrocystic bilaterally CHEST: Normal inspiratory effort ABDOMEN: soft, non-tender, and no masses PELVIC: external genitalia normal, normal Bartholin's glands, urethra, Starke's glands, no vulvar lesions, no cervical lesions, + stage 1 rectocele, physiologic discharge present, normal appearing perineal body and perianal region + scars consistent with HS BIMANUAL: uterus normal size, shape and consistency, no adnexal masses, and non-tender RECTOVAGINAL: deferred. NEURO: alert and oriented x3,exam grossly non-focal EXTREMITIES: normal ASSESSMENT/PLAN: 1) Health maintenance: Pap up to date 2022. Deferred until 2025. Mammogram starting age 40. Nutrition, exercise and routine health maintenance exams reviewed. Smoking cessation: Smoking cessation encouraged and resources provided. HPV vaccine: completed series 2) Contraception: none. Taking PNV and would accept . 3) STD screening: Accepts full STD screeening including HIV, Syphilis and Hepatitis. 4) Follow up one year or sooner as needed Fibrocystic breast changes of both breasts - ICD9: 610.1, ICD10: N60.11, N60.12 - Reviewed aggravating and r (more content not included)... [facility] 07-11-2024 History of Present illness Narrative Smooth Plater offered: Patient declines. Ko is a 29 year old who presents for an annual gynecologic exam without complaints. Menses: cycles every 30-36 days and 5 days of flow. Contraception: none HPV vaccine: Yes Last Pap: 07/20/2023 normal HPV: N/A History of abnormal pap: No Last mammogram: never Sexually active: Yes History of STDS: None Patient concerns for STD exposure: No. Pain with intercourse: Sometimes, positional Exercise: running OB History T1 L1 SAB0 IAB0 Ectopic0 Multiple0 Live Births1 Cash Applications Specialist History LMP: 06/19/2023 (Approximate), Having periods Age at Menarche: Age at First : Age at Menopause: Cash Applications Specialist History Comments: Sexual Activity: Yes; Male Contraception: None PAST MEDICAL HISTORY Diagnosis Date Anxiety Bipolar disorder (HCC) counseling center Broken leg 08/2014 Left Leg Deliberate self-cutting history of Depression GERD (gastroesophageal reflux disease) History of bulimia PAST SURGICAL HISTORY Procedure Laterality Date COLONOSCOPY [...] Social History Tobacco Use Smoking status: Former Current packs/day: 0.00 Average packs/day: 1 pack/day for 6.0 years (6.0 ttl pk-yrs) Types: Cigarettes Start date: 2014 Quit date: 2020 Years since quittin.9 Smokeless tobacco: Current Tobacco comments: vapes Vaping Use Vaping status: current everyday user Substances: Nicotine, Flavoring Devices: [...] skin retraction. Allergies and current medication updated:Yes SENSITIVE EXAM: The sensitive examination was discussed with the Patient or Patient's Authorized Bank Teller Machine Mechanic. As applicable, any other physician, advance practice provider, medical student, or other health professional student that will be observing or involved in the sensitive examination for educational or training purposes was discussed with the Patient or Authorized Bank Teller Machine Mechanic. The Patient or Authorized Bank Teller Machine Mechanic has agreed to proceed with the sensitive examination. (Sensitive examination includes inspection and/or palpation of the breasts, pelvis, prostate and anorectal regions). EXAM: BP 106/64 Ht 5' 3 (1.60m) Wt 128 lb (58.1kg) LMP 06/13/2024 BMI 22.68 kg/(m^2). GENERAL: pleasant, female in no apparent distress HEENT: Normocephalic, atraumatic, mucus membranes moist, and no lesions NECK: Supple, full range of motion, no adenopathy, and thyroid normal DERMATOLOGY: Normal, without lesions, non-icteric, and non-hirsute BREAST: soft, non-tender, symmetric, no dominant mass, normal nipple-areolar complex, no lymphadenopathy, and no nipple discharge + fibrocystic bilaterally CHEST: Normal inspiratory effort ABDOMEN: soft, non-tender, and no masses PELVIC: external genitalia normal, normal Bartholin's glands, urethra, Starke's glands, no vulvar lesions, no cervical lesions, + stage 1 rectocele, physiologic discharge present, normal appearing perineal body and perianal region + scars consistent with HS BIMANUAL: uterus normal size, shape and consistency, no adnexal masses, and non-tender RECTOVAGINAL: deferred. NEURO: alert and oriented x3,exam grossly non-focal EXTREMITIES: normal ASSESSMENT/PLAN: 1) Health maintenance: Pap up to date 2022. Deferred until 2025. Mammogram starting age 40. Nutrition, exercise and routine health maintenance exams reviewed. Smoking cessation: Smoking cessation encouraged and resources provided. HPV vaccine: completed series 2) Contraception: none. Taking PNV and would accept . 3) STD screening: Accepts full STD screeening including HIV, Syphilis and Hepatitis. 4) Follow up one year or sooner as needed Fibrocystic breast changes of both breasts - ICD9: 610.1, ICD10: N60.11, N60.12 - Reviewed aggravating and relieving factors - Continue good self breast awareness Recently self discontinued psych medications. Reports that she does not have psych provider. Discussed options - Ko plans to follow up with [facility] for mental health care. Alexus Alvarez APRN.CNP documented in this encounter [facility] 10-26-2023 Note HNO ID: [id number] Author: MICHELLE ZIMMERMAN OT/L Service: ? Author Type: Occupational Therapist Type: Progress Notes Filed: 10/26/2023 13:31 Note Text: 10/26/2023 REHABILITATION AND SPORTS THERAPY OCCUPATIONAL THERAPY DISCONTINUANCE OF CARE Plan of Care Period: Start of Care Date: 08/21/23 Last Visit Date: 08/21/2023 Therapy Program: Patient did not return for follow up care as planned. Please refer to last visit note for interventions provided for this episode of care. Assessment: Unable to formally assess goal achievement. Reason for Discontinuation of Care: Patient has not returned to therapy or scheduled additional follow-up appointments. Michelle Zimmerman OT/Peggy [facility] 10-19-2023 Miscellaneous Notes Smoking Cessation Navigation Outcome of contact: Left Message Comments: A voicemail has been left for this patient regarding Tobacco Cessation support options. If this patient has any further questions they can email us at or call us at [phone]. e[employer] Commercial Painter/Smoking Cessation Navigator: [facility] documented in this encounter [facility] 10-13-2023 Miscellaneous Notes Called [facility] and left a message to cancel prescription Buspirone 7.5 mg because pt was getting from [facility] local pharmacy. Michelle Sommer LPN documented in this encounter [facility] 10-13-2023 History of Present illness Narrative 10/13/2023 Patient presents with: Physical SUBJECTIVE: This is a 28 year old that is here today for Above Complaints. ANXIETY/DEPRESSION/Bipolar: follows with Dr. Christensen at the counseling center. Follows every three months. Taking medications as prescribed without side effects. No new medication changes. Denies SI, HI or insomnia Tattoo two weeks a go to left lower leg. Has noticed some redness around area. Mild pain to area. No drainage. Denies fevers, chills or red streaking GERD: taking omeprazole as prescribed without side effects. Denies breakthrough symptoms Vapes disposable cartridges- one cartridge lasts about one week. Has tried to quit before but felt it made her blood pressure spike. Would like information on quitting PAST MEDICAL HISTORY Diagnosis Date Anxiety Bipolar disorder ([facility]) counseling center Broken leg 08/2014 Left Leg Deliberate self-cutting history of Depression GERD (gastroesophageal reflux disease) History of bulimia ALLERGIES Gluten, Hydrocodone, and Zoloft [Sertraline Hcl] MEDICATIONS Current Outpatient Medications Medication Sig busPIRone (BUSPAR) 7.5 mg tablet Take 1 tablet by mouth two times a day. acetaminophen (TYLENOL EXTRA STRENGTH) 500 mg tablet Take 2 tablets by mouth every 8 hours as needed for pain. Two (2) X 500 mg tablets = 1,000 mg omeprazole (PRILOSEC) 40 mg capsule Take 1 [...] needed for Nausea/Vomiting. No current facility-administered medications for this visit. Medications and allergies reviewed by this provider. SOCIAL HISTORY Social History Tobacco Use Smoking status: Former Packs/day: 1.00 Years: 6.00 Additional pack years: 0.00 Total pack years: 6.00 Types: Cigarettes Quit date: 2020 Years since quittin.1 Smokeless tobacco: Current Tobacco comments: vapes Vaping Use Vaping Use: current everyday user Substances: Nicotine, Flavoring Devices: Disposable Substance Use Topics Alcohol use: Never Drug use: Yes Types: Marijuana REVIEW OF SYSTEMS GENERAL: No weight loss, malaise or fevers HEENT: Negative for frequent or significant headaches, No changes in hearing or vision, no nose bleeds or other nasal problems NECK: Negative for lumps, goiter, pain and significant neck swelling RESPIRATORY: Negative for cough, hemoptysis, wheezing, COPD, dyspnea or shortness of breath CARDIOVASCULAR: Negative for chest pain, leg swelling, hypertension, CHF or palpitations GI: No nausea, vomiting, or diarrhea : No history of dysuria, frequency or incontinence PRACTICAL NURSE CLINICAL COORDINATOR: Negative for abnormal vaginal bleeding, abnormal vaginal discharge MUSCULOSKELETAL: Negative for joint pain or swelling, back pain or muscle pain SKIN: See HPI PSYCH: See HPI HEMATOLOGY/LYMPHOLOGY: Negative for prolonged bleeding, bruising easily or swollen nodes ENDOCRINE: Negative for cold or heat intolerance, polyuria, polydipsia and goiter. Feels cold often NEURO: No history of headaches, syncope, paralysis, seizures or tremors All other reviewed and negative other than HPI. OBJECTIVE: BP 108/72 Pulse 72 Resp 18 Ht 161.5 cm (5' 3.58) Wt 57.7 kg (127 lb 3.2 oz) LMP 06/19/2023 (Approximate) SpO2 96% BMI 22.12 kg/m . Vital signs reviewed by this provider. APPEARANCE Well appearing, alert, in no acute distress, well-hydrated, well nourished. EYES conjunctiva and sclera normal. EARS External ears normal, canals clear NECK Supple, no adenopathy; thyroid symmetric, normal size, no bruits HEART RRR with normal S1 and S2, no murmurs, no gallops, no JVD appreciated LUNG clear to auscultation. No wheezes, rhonchi or rales EXTREMITIES Extremities normal, No deformities, No skin discoloration, and No edema SKIN: patient with multiple tattoos. Left lower medial leg with tattoo of mountains in a square- flaking areas with very mild erythema to right edge- mild TTP. No excessive warmth or drainage Component Latest Ref Rng & Units 09/08/2023 TSH 0.270 - 4.200 mIU/L 0.414 Component Latest Ref Rng & Units 01/28/2023 WBC 3.70 - 11.00 k/uL 9.10 RBC 3.90 - 5.20 m/uL 4.18 Hemoglobin 11.5 - 15.5 g/dL 13.4 Hematocrit 36.0 - 46.0 % 39.5 MCV 80.0 - 100.0 fL 94.5 MCH 26.0 - 34.0 pg 32.1 MCHC 30.5 - 36.0 g/dL 33.9 RDW-CV 11.5 - 15.0 % 12.4 Platelet Count 150 - 400 k/uL 284 MPV 9.0 - 12.7 fL 10.1 Neut% % 70.9 Abs Neut (ANC) 1.45 - 7.50 k/uL 6.45 Lymph% % 20.9 Abs Lymph 1.00 - 4.00 k/uL 1.90 [place]% % 5.5 Abs [place] <0.87 k/uL 0.50 Eosin% % 1.5 Abs Eosin <0.46 k/uL 0.14 Baso% % 1.0 Abs Baso <0.11 k/uL 0.09 Immature Gran % % 0.2 IMMATURE GRANS (ABS) <0.10 k/uL <0.03 NRBC /100 WBC 0.0 Absolute nRBC <0.01 k/uL <0.01 DTYPE Auto Protein, Total 6.3 - 8.0 g/dL 7.5 Albumin 3.9 - 4.9 g/dL 4.6 Calcium 8.5 - 10.2 mg/dL 9.4 Bilirubin, Total 0.2 - 1.3 mg/dL 0.4 Alkaline Phosphatase 34 - 123 U/L 62 AST 13 - 35 U/L 11 (L) ALT 7 - 38 U/L 11 Glucose 74 - 99 mg/dL 106 (H) BUN 7 - 21 mg/dL 12 Creatinine 0.58 - 0.96 mg/dL 0.93 Sodium 136 - 144 mmol/L 139 Potassium 3.7 - 5.1 mmol/L 4.4 Chloride 97 - 105 mmol/L 104 CO2 22 - 30 mmol/L 27 Anion Gap 9 - 18 mmol/L 8 (L) eGFR >=60 mL/min/1.73m 87 Hepatitis B Vaccine(1 of 3 - 3-dose series) Never done Depression Assessment Never done Influenza Vaccine(1) due on 02/07/2024 Covid-19 Vaccine(1) due on 07/07/2024 Pap Testing due on 07/10/2026 DTaP,Tdap,Td Vaccine(2 - Td or Tdap) due on 10/08/2030 Hepatitis C Screening Completed HIV Screening Completed HPV Vaccine Discontinued ASSESSMENT/PLAN: 1. Routine physical examination - ICD9: V70.0, ICD10: Z00.00 (primary diagnosis) - Counseled on healthy diet and regular exercise - Calcium intake with supplements or by diet of 1000 mg/day for under 50, 4175-9352 mg/day for 50+ - Smoking cessation encouraged; discussed risks to health and quitting strategies. Patient is contemplative - Depression screening tool completed and reviewed with patient. Based on score and interview, patient is already diagnosed with depression and recommended continuing current plan of care. - Follow up for annual exam in one year 2. Vaping nicotine dependence, tobacco product - ICD9: 305.1, ICD10: F17.290 - Cessation encouraged. - Physiologic and physical aspects of tobacco addiction as well as strategies for quitting were discussed. - Counseling was given focusing on the harmful effects of this addiction especially given the patient's medical condition(s) which will be worsened because of the chemicals in tobacco. - Counseling was given 3-4 minutes. - CONSULT TO SMOKING CESSATION 3. Cellulitis of skin - ICD9: 682.9, ICD10: L03.90 - keep area clean and dry - may apply OTC triple antibiotic ointment - no red flag symptoms or exam findings - red flag symptoms discussed, verbalizes understanding - Begin treatment with Cephalaxin (Keflex) - CEPHALEXIN 500 MG CAPSULE - follow-up if symptoms fail to improve to ER with red flag symptos 4. Bipolar affective disorder, current episode mixed, current episode severity unspecified (HCC) - ICD9: 296.60, ICD10: F31.60 - continue medications - [facility] 5. Anxiety and depression - ICD9: 300.00, 311, ICD10: F41.9, F32.A - plan as in #4 - BUSPIRONE 7.5 MG TABLET - DEPRESSION SCREENING/ASSESSMENT Johanny Stauffer APRN.CNP Prescription instructions reviewed with patient as applicable. Patient advised if symptoms do not improve or if symptoms worsen sooner, to contact their primary care physician. Potential red flag symptoms discussed with the patient. Reviewed appropriate action plan to take if red flag symptoms occur. Patient agreeable to treatment plan. documented in this encounter [facility] 10-13-2023 Note HNO ID: [id number] Author: JOHANNY STAUFFER APRN.CNP Service: ? Author Type: Nurse Practitioner Type: Progress Notes Filed: 10/13/2023 09:04 Note Text: 10/13/2023 Patient presents with: Physical SUBJECTIVE: This is a 28 year old that is here today for Above Complaints. ANXIETY/DEPRESSION/Bipolar: follows with Dr. Christensen at the counseling center. Follows every three months. Taking medications as prescribed without side effects. No new medication changes. Denies SI, HI or insomnia Tattoo two weeks a go to left lower leg. Has noticed some redness around area. Mild pain to area. No drainage. Denies fevers, chills or red streaking GERD: taking omeprazole as prescribed without side effects. Denies breakthrough symptoms Vapes disposable cartridges- one cartridge lasts about one week. Has tried to quit before but felt it made her blood pressure spike. Would like information on quitting PAST MEDICAL HISTORY Diagnosis Date Anxiety Bipolar disorder ([facility]) counseling center Broken leg 08/2014 Left Leg Deliberate self-cutting history of Depression GERD (gastroesophageal reflux disease) History of bulimia ALLERGIES Gluten, Hydrocodone, and Zoloft [Sertraline Hcl] MEDICATIONS Current Outpatient Medications Medication Sig busPIRone (BUSPAR) 7.5 mg tablet Take 1 tablet by mouth two times a day. acetaminophen (TYLENOL EXTRA STRENGTH) 500 mg tablet Take 2 tablets by mouth every 8 hours as needed for pain. Two (2) X 500 mg tablets = 1,000 mg omeprazole (PRILOSEC) 40 mg capsule Take 1 [...] needed for Nausea/Vomiting. No current facility-administered medications for this visit. Medications and allergies reviewed by this provider. SOCIAL HISTORY Social History Tobacco Use Smoking status: Former Packs/day: 1.00 Years: 6.00 Additional pack years: 0.00 Total pack years: 6.00 Types: Cigarettes Quit date: 2020 Years since quittin.1 Smokeless tobacco: Current Tobacco comments: vapes Vaping Use Vaping Use: current everyday user Substances: Nicotine, Flavoring Devices: Disposable Substance Use Topics Alcohol use: Never Drug use: Yes Types: Marijuana REVIEW OF SYSTEMS GENERAL: No weight loss, malaise or fevers HEENT: Negative for frequent or significant headaches, No changes in hearing or vision, no nose bleeds or other nasal problems NECK: Negative for lumps, goiter, pain and significant neck swelling RESPIRATORY: Negative for cough, hemoptysis, wheezing, COPD, dyspnea or shortness of breath CARDIOVASCULAR: Negative for chest pain, leg swelling, hypertension, CHF or palpitations GI: No nausea, vomiting, or diarrhea : No history of dysuria, frequency or incontinence PRACTICAL NURSE CLINICAL COORDINATOR: Negative for abnormal vaginal bleeding, abnormal vaginal discharge MUSCULOSKELETAL: Negative for joint pain or swelling, back pain or muscle pain SKIN: See HPI PSYCH: See HPI HEMATOLOGY/LYMPHOLOGY: Negative for prolonged bleeding, bruising easily or swollen nodes ENDOCRINE: Negative for cold or heat intolerance, polyuria, polydipsia and goiter. Feels cold often NEURO: No history of headaches, syncope, paralysis, seizures or tremors All other reviewed and negative other than HPI. OBJECTIVE: BP 108/72 Pulse 72 Resp 18 Ht 161.5 cm (5' 3.58) Wt 57.7 kg (127 lb 3.2 oz) LMP 06/19/2023 (Approximate) SpO2 96% BMI 22.12 kg/m? . Vital signs reviewed by this provider. APPEARANCE Well appearing, alert, in no acute distress, well-hydrated, well nourished. EYES conjunctiva and sclera normal. EARS External ears normal, canals clear NECK Supple, no adenopathy; thyroid symmetric, normal size, no bruits HEART RRR with normal S1 and S2, no murmurs, no gallops, no JVD appreciated LUNG clear to auscultation. No wheezes, rhonchi or rales EXTREMITIES Extremities normal, No deformities, No skin discoloration, and No edema SKIN: patient with multiple tattoos. Left lower medial leg with tattoo of mountains in a square- flaking areas with very mild erythema to right edge- mild TTP. No excessive warmt (more content not included)... [facility] 09-08-2023 Note HNO ID: [id number] Author: MILADIS NASSAR MD Service: ? Author Type: Physician Type: Progress Notes Filed: 09/08/2023 09:26 Note Text: Chief Complaint Patient presents with: ER F/U HPI Ko Galindo is a 28 year old female who presents here today for ER follow up. Patient evaluated at [facility] ED on 09/07 for copmlaint of lump on her left lower rib cage. Had apparently been evaluated at [facility] ER on 09/[address] scan which did not show any mass. Denied injury or trauma. Physical exam in the ER was negative for mass or deformity to rib cage. No further imaging obtained. Recommended f/u with our office in 1 week. Today, patient maintains that she has a lump on the left side of her chest with intermittent stabbing/aching pain in her left axilla and across her chest. Typically lasts a few seconds. Occurs randomly. Nothing seems to trigger the pain. Denies exacerbating factors. Treating with ibuprofen and tylenol PRN which does help with pain. Notes that she had fracture to her right hand recently and has been using her left arm more. Denies fever, cough, SOB, wheezing, leg swelling, palpitations. Feels like symptoms are worsening. Reviewed lab results from [facility] on 09/05 which showed low potassium at 3.2. patient states her potassium was replaced at that time. Will need recheck today.CBC and CMP unremarkable otherwise. Noted recent weight loss. Patient denies bulimia at this time and is following up with psychiatry. Thinks medications may be effecting her appetite and is still worried about gaining weight. Past medical history, appointments, medications, allergies reviewed. Previous Medical History PAST MEDICAL HISTORY Diagnosis Date Anxiety Bipolar disorder ([facility]) counseling center Broken leg 08/2014 Left Leg [...] Maternal Grandmother other (Liver Failure) Maternal Grandmother Patient Allergies ALLERGIES Allergen Reactions Gluten Swelling, Vomiting Hydrocodone Vomiting Zoloft [Sertraline * GI Upset Current Medications Current Outpatient Medications on File Prior to Visit Medication Sig busPIRone (BUSPAR) 7.5 mg tablet Take 1 tablet by mouth two times a day. acetaminophen (TYLENOL EXTRA STRENGTH) 500 mg tablet Take 2 tablets by mouth every 8 hours as needed for pain. Two (2) X 500 mg tablets = 1,000 mg omeprazole (PRILOSEC) 40 mg capsule Take 1 [...] History Social History Tobacco Use Smoking status: Former Packs/day: 1.00 Years: 6.00 Additional pack years: 0.00 Total pack years: 6.00 Types: Cigarettes Quit date: 2020 Years since quittin.0 Smokeless tobacco: Current Tobacco comments: vapes Vaping Use Vaping Use: current everyday user Substances: Nicotine, Flavoring Devices: Disposable Substance Use Topics Alcohol use: Never Drug use: Yes Types: Marijuana Review of Symptoms REVIEW OF SYSTEMS See HPI EXAM: BP 126/88 Pulse 103 Resp 16 Wt 57.2 kg (126 lb) LMP 06/19/2023 (Approximate) SpO2 94% BMI 22.32 kg/m? General Appearance: Well appearing, alert, in no acute distress, well-hydrated, well nourished.. Skin: Skin color, texture, turgor normal, no suspicious rashes or lesions. (more content not included)... [facility] 09-07-2023 Discharge summary Note Date/Time September 07, 2023 3:12pm [facility] Medical Records Department [address] [place] [address] Emergency Department Summary 09/07/23 MR#: [id number] Acct: [id number] Name: KO GALINDO Rep #:[id number] : 1995 28 From: Elias Quezada MD PCP: Dr. Charly Nassar MD Status :PRE ER Location: ED HPI History of Present Illness Chief Complaint: Other, Pain/Inj Detail of Chief Complaint: Question left rib cage mass. Informant: patient Onset/Context/Timing Onset: Weeks Context: Gradual Onset Timing: Continuous Maximum Severity: Mild Narrative Narrative: 28-year-old female history of bipolar states that she has a lump on her left lower rib cage. She was seen at [facility] ER on Thursday and a CAT scan of the workup. She said they could not find anything specific. She denies any fall injury or trauma. She said it is uncomfortable. Denies any other complaints. Prior similar symptoms: No Recent Illness/Hospitalization: No PFSH PFSH Medical History Bipolar disorder Home Medications benztropine 0.5 mg tablet 0.5 mg PO DAILY PRN muscle spasm 02/17/23 [History Last Taken Unknown] lamotrigine 100 mg tablet 100 mg PO Q12H 02/17/23 [History Last Taken 06/29/23] omeprazole 20 mg capsule,delayed release 20 mg PO DAILY #30 CAPSULES 04/01/23 [Rx Last Taken 06/29/23] sucralfate 1 gram tablet 1 g PO ACHS 06/30/23 [History Last Taken 06/29/23] buspirone 7.5 mg tablet 7.5 mg PO BID 30 days #60 tabs 07/04/23 [Rx Last Taken Unknown] Allergy/AdvReac Type Severity Reaction Status Date / Time hydrocodone Allergy Mild Vomiting Verified 09/07/23 13:43 acetaminophen Allergy Vomiting Verified 09/07/23 13:43 gluten Allergy Vomiting Verified 09/07/23 13:43 Social History Smoking Status: Current every day smoker tobacco type: e-cigarettes substance use type: marijuana ROS ROS ED ROS Narrative 5 days ago had nausea vomiting diarrhea since resolved. Review of Systems ROS Unobtainable: Denies due to encephalopathy Constitutional Constitutional ED: Denies chills or fever(s) Eyes Eyes: Denies blurry vision ENT ENT ED: Denies ear pain Cardiovascular Cardiovascular: Denies chest pain Respiratory/Chest Respiratory/Chest: Denies cough Gastrointestinal Gastrointestinal: Reports diarrhea, nausea and vomiting; Denies abdominal pain, constipation or melena Genitourinary Genitourinary ED: Denies dysuria or hematuria Musculoskeletal Musculoskeletal: Denies arthralgias, back pain, myalgias or neck pain Integumentary Denies abscess, Abrasions or rash Neurologic Neurologic: Denies headache(s) Psychiatric Psychiatric: Denies anxiety, depression, suicidal ideation or suicidal thoughts Endocrine Endocrinology: Denies cold intolerance Hematologic/Lymphatic Hematologic/Lymphatic: Reports none Allergic/Immunologic Allergic/Immunologic ED: Denies mouth swelling, tongue swelling or urticaria EXAM Physical Exam Narrative Exam Narrative: Well-appearing 28-year-old female I saw in triage room 2 due to volume and acuity at that time. Vital signs stable afebrile. H EENT exam unremarkable. Neck nontender. Lungs clear to auscultation bilaterally. Heart regular rhythm rate about 100 no murmur. Chest wall she has minimal tenderness to her left lower chest wall but I do not see any bruising. I do not feel any mass. I do not see or feel any bony abnormality. Basically a normal chest wall and rib exam. Abdomen is soft and nontender. Moves all 4 extremities. Nontender no edema. Neurologically she is awake and alert. Back unremarkable. Normal exam. I explained to the patient that I do not see an abnormality. Const Vital Signs: 09/07/23 13:40 Temperature 97.9 F Temperature Source Temporal Pulse Rate 105 H Respiratory Rate 16 Blood Pressure 133/99 H Blood Pressure Mean 110 Pulse Ox 99 Oxygen Delivery Method Room Air Positive well nourished and well developed; Negative for obese, cachectic, contractures or unkempt General Appearance ED: well developed and NAD; Negative for unkempt, cachectic, contractures, cyanotic, diaphoretic or pallor Nutritional Appearance: Negative for cachectic or obese HEENT Reports moist mucous membranes; Denies dry mucous membranes or other Negative for trauma, tenderness or other Mouth ED: No dry mucous membranes Mouth: No dry mucous membranes Eyes PERRL and EOMs intact bilaterally General Eye ED: Negative for pale conjunctiva, scleral icterus or other Neck no lymphadenopathy, supple and no JVD General: Negative for tenderness Lymph Lymphatic: Negative for other Chest Wall inspection of chest normal and palpation of chest normal Chest: Negative for other Resp normal respiratory effort and clear to auscultation bilaterally Effort and Inspection: Negative for retractions Auscultation: Negative for rales, rhonchi, wheezes or diminished lung sounds Cardio regular rate, regular rhythm, S1 normal heart sound, S2 normal heart sound and no murmurs Palpation: Negative for palpable S3 or palpable S4 Rate: Negative for bradycardia or tachycardic Rhythm: Negative for abnormal rhythm GI normal to inspection, nondistended, normoactive bowel sounds, non-tender, non-distended and no masses Inspection: Negative for abdominal distention Auscultation: normoactive bowel sounds Palpation: soft; Negative for tender or guarding Bladder / Kidney Exam: No other Back/Spine no CVA tenderness General Back: Negative for CVA tenderness Cervical Spine: Negative for cervical spine tenderness Thoracic Spine / Upper Back: Negative for thoracic spinal tenderness or paraspinal muscle tenderness Lumbar Spine / Lower Back: Negative for lumbar spinal tenderness Extremity normal to inspection General Extremety ED: Negative for edema or tenderness General Extremity: Negative for edema Neuro CN's II-XII intact bilaterally Sensorium / Orientation: alert; Negative for orientation impaired, lethargic or stuporous Motor Exam: strength 5/5 throughout Psych mental status grossly normal Appearance: Negative for unkempt Attitude: No agitated Mood & Affect: anxious; Negative for depressed or tearful Skin no rashes or lesions noted and no wounds General Skin Exam: Negative for jaundice or pallor Lesions: No lesion noted Rashes: No rashes noted Trauma: Negative for abrasion Wounds: Negative for wounds noted MDM MDM MDM Narrative Medical decision making narrative: 28-year-old female concern for a left rib cage mass. Her exam is normal I do not find anything on her rib cage. She agreed reportedly recently had a CAT scan in another facility. I explained her there is nothing emergent or anythingto do specifically today in the emergency department she will refer back to her primary care physician for repeat evaluation. Discharge Plan Triage Chief Complaint: Other, Pain/Inj ED Provider: Elias Quezada Dx/Rx/DC Orders Clinical Impression: Chest wall symptom or complaint, Hx of bipolar disorder Prescriptions: No Action sucralfate 1 gram tablet 1 g PO ACHS Patient Comments: TAKE 1 TABLET BY MOUTH BEFORE MEAL(S) AND AT BEDTIME lamotrigine 100 mg tablet 100 mg PO Q12H benztropine 0.5 mg tablet 0.5 mg PO DAILY PRN (Reason: muscle spasm) Patient Comments: TAKE 1 TABLET BY MOUTH ONCE DAILY NEEDED FOR ABNORMAL MUSCLE MOVEMENTS omeprazole [omeprazole] 20 mg capsule,delayed release(DR/EC) 20 mg PO DAILY Qty: 30 0RF buspirone 7.5 mg tablet 7.5 mg PO BID 30 Days Qty: 60 0RF Primary Care Provider: Charly Nassar Referrals: Charly Nassar MD [Primary Care Provider] - 1 Week if not improving Activity Restrictions/Additional Instructions: I do not specifically find any abnormality on your chest wall. Motrin for pain. Follow-up with your doctor if not improving. Disposition Disposition: Home, Self Care What to do if you have Problems For any increased pain, shortness of breath, bleeding, nausea or vomiting, chestpain, or any unexpected problems, contact your Primary Care Provider. Call [facility] ([phone]) or report to the closest Emergency Room. Call 911 if necessary. 09/07/23 1512 <Electronically signed by Elias Quezada MD> Cosigner Signature (if applicable): CC: Dr. Charly Nassar MD ~ Signed [facility] Work Phone: 1(964) 602-837401-12-2024 NoteHNO ID: [id number] Author: MICHELLE ZIMMERMAN, OT/L Service: ? Author Type: Occupational Therapist Type: Progress Notes Filed: 08/21/2023 16:12 Note Text: Episode Visit Count: 1 Therapist That Will Accept/Oversee The Plan Of Care: Michelle Zimmerman Start of Care Date: 08/21/23 Onset Date: 07/28/23 Patient Identified by Name and Date of : Yes [facility] OCCUPATIONAL THERAPY EVALUATION PLAN OF CARE: Assessment: Ko Galindo presents with diagnosis of right 5th metacarpal [...] Episode of Care created on 08/21/23 through 09/18/23 Increase MP flexion of right SF to 80-85 degrees to assist with gripping for ADL's and work tasks. 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 Author Type: Physician Explosives Engineer Type: Progress Notes Filed: 08/12/2023 10:58 AM Note Text: Ko Galindo underwent the following procedure on 07/28/23 1) Right fifth metacarpal open reduction internal fixation CPT 35808 The patient returns today for follow-up. The [...] Fracture reduction was maintained. Images posted to [facility] ASSESSMENT: Closed displaced fracture of shaft of [...] care, discussing treatment options and recommendations. Kamaljit Gordon PA-C August 12, 2023 10:38 AM This note was generated with voice recognition software and may contain errors, including spelling, grammar, syntax and misrecognition of what was dictated, that are not fully corrected.[facility] [id number] NoteHNO ID: [id number] Author: Krystyna Yanez DO Service: ? Author Type: Resident Type: Anesthesia Procedure Notes Filed: 07/28/2023 3:08 PM Note Text: Attestation signed by Mabel Wilhelm MD at 07/28/2023 9:26 PM Attending note I was present for the entire procedure supervising the resident and participated in the hall components of the procedure. Patient's information were verified as well as the procedure and laterality.Pt tolerated the procedure well with out any complications. Mabel Portillo MD Staff anesthesiologist Phone : [phone] ANESTHESIOLOGY PROCEDURE NOTE Peripheral Nerve Block General [...] SIGNATURE: Krystyna Yanez DO PATIENT NAME: Ko Galindo DATE: July 28, 2023 TIME: 3:07 PM CSN: [id number] History and physical note* Kamaljit Gordon PA-C - 07/24/2023 5:07 PM EST NEW ENCOUNTER Chief Complaint: closed fracture of [...] shaft fracture, nearly 2 weeks out. Patient wearingulnar gutter cast Social History: Tobacco Use: 1 packs/day, for 6 years. Quit 08/10/2020. 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 Treatment options for metacarpal fractures were discussed. We discussed that this may be treated nonoperatively with kemar strapping, and splint immobilization until fracture heals. This option does not involve surgery, however, the bony malalignment will not be corrected, and the patient will likel y have some difficulty forming a full composite [...] will be removed with no permanent implant inplace. Intramedullary screw insertion requires no subsequent removal, [...] Past Histories independently gathered by the clinical program support specialist and the remaining scribed note accurately describes my personal service to the patient. 30 Minutes total visit spent face to face with patient. Greater than 50% of the time was spent for counseling and coordination of care, discussing treatment options and recommendations. Kamaljit Gordon PA-C July 24, 2023 11:13 AM This note was generated with voice recognition software and may contain errors, including spelling,grammar, syntax and misrecognition of what was dictated, that are not fully corrected. [facility] Miscellaneous Notes* Telephone Encounter - Janet Hurtado OCCA - 07/24/2023 1:34 PM EST Returned patients call. Was seen by Plastic in [facility] earlier today. According to visit notes, patient is scheduled for surgery on 07/28/[address] Barrett. Patient is aware. Had also received a call from another surgeon. Concern for her cast being bivalved prior to surgery. Instructed patient that her hand would be fine with cast bivalved, makes removal easier prior to surgery. Patientappreciated call and is awaiting further instructions from surgery team. * Telephone Encounter - Fatoumata Lane - 07/24/2023 10:07 AM EST Ko Da Silva Mateo is calling Birgit Turcios PA-C today with [...] , it is OK to leave message [phone] (home) [phone] (cell) Was an appointment scheduled: Closing statement: Fatoumata Lane documented in this encounterTr[facility]12-[facility]-2023 NoteHNO ID: [id number] Author: Corinne Lake MA Service: ? Author Type: Steel Box Toe Inserter Type: Progress Notes Filed: 07/24/2023 9:08 AM Note Text: PT ASSESSMENT - CASTING ROOM Ko presents for bivalve of cast for surgery next week. oCrinne Lake [facility]12-15[facility] History of Present illness Narrative* Kamaljit Gordon PA-C - 07/24/2023 8:30 AM EST NEW ENCOUNTER Chief Complaint: closed fracture of [...] shaft fracture, nearly 2 weeks out. Patient wearingulnar gutter cast Social History: Tobacco Use: 1 packs/day, for 6 years. Quit 08/10/2020. 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 Galindo the diagnosis and proposed treatment options. Treatment options for metacarpal fractures were discussed. We discussed that this may be treated nonoperatively with kemar strapping, and splint immobilization until fracture heals. This option does not involve surgery, however, the bony malalignment will not be corrected, and the patient will likel y have some difficulty forming a full composite [...] will be removed with no permanent implant inplace. Intramedullary screw insertion requires no subsequent removal, [...] Past Histories independently gathered by the clinical program support specialist and the remaining scribed note accurately describes my personal service to the patient. 30 Minutes total visit spent face to face with patient. Greater than 50% of the time was spent for counseling and coordination of care, discussing treatment options and recommendations. Kamaljit Gordon PA-C July 24, 2023 11:13 AM This note was generated with voice recognition software and may contain errors, including spelling,grammar, syntax and misrecognition of what was dictated, that are not fully corrected. documented in this [facility]12-[facility]23 NoteHNO ID: [id number] Author: Kamaljit Gordon PA-C Service: ? Author Type: Physician Explosives Engineer Type: Progress Notes Filed: 07/24/2023 5:07 PM [...] 6 years. Quit 08/10/2020. 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 Galindo the diagnosis and proposed treatment options. Treatment [...] K wires (which w (more content not included)...[facility]12-13-2023 NoteHNO ID: [id number] Author: Birgit Turcios PA-C Service: ? Author Type: Physician Explosives Engineer Type: Progress Notes Filed: 07/22/2023 1:03 PM Note Text: Ko Galindo is a patient of Miladis Nassar MD. 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 No PHYSICAL EXAMINATION: Vitals: [facility] 06/19/2023 Body Habitus:well nourished and no acute distress Orientation: Normal: Oriented to person, place and time Psych: normal Skin: Color, texture, turgor normal. No rashes or lesions Sensation: sensation to light touch is grossly normal bilaterally Specific MSK Exam Good cap refill. Exam limited due to cast IMAGING: Final results and radiologist's interpretation, available in the [facility] health record. Images were reviewed with the patient/family members in the office today. My personal interpretation of the performed imaging is interval shifting of fracture CLINICAL IMPRESSION / ASSESSMENT: (S63.926I) Closed displaced fracture of shaft of fifth [...] inaccurate syntax or word sense that escaped review.[facility]12-13-2023 NoteHNO ID: [id number] Author: Simon Wayne RT(R) Service: Radiology Author Type: Technologist Type: Progress Notes Filed: 07/22/2023 11:52 AM Note Text: Radiology Service Progress Note PATIENT NAME: Ko Galindo DATE OF SERVICE: July 22, 2023 TIME: [...] RT Maria Eugenia(R) July 22, 2023 11:52 [facility]12-08-2023 NoteHNO ID: [id number] Author: Birgit Turcios PA-C Service: ? Author Type: Physician Explosives Engineer Type: Progress Notes Filed: 07/17/2023 3:42 PM [...] is pretty well controlled with ibuprofen. 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 Images were reviewed with the [...] condition and emergent treatment if they present. [facility] NoteHNO ID: [id number] Author: Janet Hurtado OCCA Service: ? Author Type: Steel Box Toe Inserter Type: Progress Notes Filed: 07/17/2023 3:38 PM Note Text: PT ASSESSMENT - CASTING ROOM Ko presents for Application of cast. Applied waterproof short arm boxer's cast: to Right arm Patient has been instructed in Care of cast.. [facility] of Present illness Narrative* Janet Hurtado OCCA - 07/17/2023 3:37 PM EST PT ASSESSMENT - CASTING ROOM Ko presents for Application of cast. Applied waterproof short arm boxer's cast: to Right arm Patient has been instructed in Care of cast.. OSITO Hendrickson documented in this encounterTr[facility]12-08-2023 History of Present illness Narrative* Birgit Turcios PA-C - 07/17/2023 3:37 PM EST Images from the original note were not [...] is pretty well controlled with ibuprofen. 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 Images were reviewed with the [...] see her back in the middle of nextweek and repeat x-rays as I do have [...] present. Birgit Turcios PA-C documented in this encounterTrumbull [facility] Center12-08-2023 NoteHNO ID: [id number] Author: Nurys Denise RT(R) Service: Radiology Author Type: Technologist Type: Progress Notes Filed: 07/17/2023 2:33 PM Note Text: Radiology Service Progress Note PATIENT NAME: Ko Galindo DATE OF SERVICE: July 17, 2023 TIME: [...] IV DATA: Not applicable SIGNED BY: RT Tyshawn(R) July 17, 2023 2:32 [facility]12-01-2023 Instructions* Patient Instructions* Alexus Alvarez APRN.CNP - 07/10/2023 11:52 AM EST From [facility]'s Tobacco Cessation website: Our comprehensive smoking cessation program contains three main modules. These modules include the following: One-on-one weekly 30-minute counseling sessions with a respiratory therapist. Education about the various nicotine replacement therapies and medications and alternative methods used for cessation. Guidance and support; plus, we will contact your physician to obtain any required prescriptions formedications related to cessation. Insurance is accepted for this six-week program. Please check with your provider about whether yourplan covers tobacco cessation programs. In the event your insurance provider does not cover your six-week smoking cessation program, we encourage you to contact us at your earliest convenience by calling [phone]. One of our friendly team members will be happy to help you with your financial plan. Contact [phone] for more information. [place] Tobacco Program Visit [email or web address]://[email or web address].org/en-[email or web address] or call -NOW Fibrocystic breast change is a common benign [...] good self breast awareness. 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 Recommend prenatalvitamin. Reports that she is not preventing nor [...] N93.0 - Pap and STD testing done Alexus Alvarez APRN.CNP documented in this encounterTrumbull [facility]11-28-2023 History of Present illness Narrative* Miladis Nassar MD - 07/07/2023 8:25 AM EST Chief Complaint Patient presents with: ER F/U: Patient reports in ER 2 x in last week and has concerns- prefers to address this VS physical HPI Ko Galindo is a 28 year old female who presents here today for ER Follow Up. PMH: anxiety, bulimia and bipolar disorder which is managed by [facility]. Patient evaluated at [facility] ED on 06/30 for c/o SOB, intermittent chest pain, intermittent flank pain,and intermittent head pain which started a couple [...] that her last OV with psychiatry at [facility] was 1 week ago. States that they [...] made it for you to do your work,take care of things at home, or get [...] by mouth once daily. (Patient not taking: Reportedon 04/18/2019) ondansetron orally disintegrating (ZOFRAN ODT) 4 [...] pain. Discussed importance of taking medications as prescribedby her psychiatrist and should contact their office with rx concerns. Start OTC NSAIDs PRN for painand call if symptoms change or worsen. 2. [...] which included preparing to see the patient, gtcq-xh-fsff patient care, completing clinical documentation, obtaining and/or reviewing separately obtained history, performing a medically appropriate examination, counseling and educating the pat ient/family/caregiver, and ordering medications, tests, or procedures. Miladis Nassar MD documented in this encounterTrumbull [facility]11-21-2023 Discharge summary Author Devyn Ramos [facility] June 30, 2023 3:04pm Note Date/Time June 30, 2023 2:54pm [facility] Medical Records Department [address] [place] [address] Emergency Department Summary 06/30/23 MR#: [id number] Acct: [id number] Name: KO GALINDO Rep #:[id number] : 1995 27 From: Devyn Ramos MD PCP: Dr. Charly Nassar MD Status :REG ER Location: ED HPI History of Present Illness Chief Complaint: Shortness of Breath Detail of Chief Complaint: Patient has a multitude of complaints which will be documented in the HPI n Informant: patient Onset/Context/Timing Onset: Days Context: Sudden Onset Timing: Intermittent Quality: Pain Location: Head, anterior chest, right and left flank Current Severity: Mild Maximum Severity: Moderate Worsened by: Nothing Relieved by: Nothing Associated Symptoms Associated Symptoms: Shortness of breath Narrative Narrative: Patient is a 27-year-old woman with history of bipolar affective disorder, presents with shortness of breath, intermittent transient chest pain, intermittent right and left flank pain and intermittent occipital head pain. Symptoms started a couple days ago. What concerned her is that her shortness ofbreath has not gotten better. She is not on control pills. She has no history of VTE. She has no risk factors for VTE. There is no family history ofVTE. Patient presently denies headache. She denies double vision, blurred vision loss of vision. She denies ringing in ears or decreased hearing. She denies rhinorrhea, congestion or sore throat. She denies cough. She denies pleuritic chest pain. She denies abdominal pain, vomiting or diarrhea. She denies urinary symptoms. She denies leg pain, swelling or discoloration. She denies dermatologic lesionsor rash. She does have history of GERD. She also has history of bipolar affective disorder. Prior similar symptoms: No Recent Illness/[facility]: [facility] Medical History Bipolar disorder Home Medications benztropine 0.5 mg tablet 0.5 mg PO DAILY PRN muscle spasm 02/17/23 [History Last Taken Unknown] lamotrigine 100 mg tablet 100 mg PO Q12H 02/17/23 [History Last Taken 06/29/23] omeprazole 20 mg capsule,delayed release 20 mg PO DAILY #30 CAPSULES 04/01/23 [Rx Last Taken 06/29/23] sucralfate 1 gram tablet 1 g PO ACHS 06/30/23 [History Last Taken 06/29/23] Allergy/AdvReac Type Severity Reaction Status Date / Time acetaminophen Allergy Vomiting Verified 06/30/23 13:39 gluten Allergy Vomiting Verified 06/30/23 13:39 Social History (Updated 04/01/23 @ 11:[address] Rishi Rocha, ) Smoking Status: Current every day smoker tobacco type: e-cigarettes substance use type: marijuana ROS ROS ED Constitutional Constitutional ED: Denies chills, fever(s), subjective, sweats or weight loss Eyes Eyes: Denies blurry vision, change in vision or diplopia ENT ENT ED: Denies ear pain, rhinorrhea or sore throat Cardiovascular Cardiovascular: Reports chest pain; Denies orthopnea, palpitations, paroxysmal nocturnal dyspnea or racing heartbeat Respiratory/Chest Respiratory/Chest: Reports dyspnea; Denies cough, dyspnea on exertion, orthopneaor paroxysmal nocturnal dyspnea Gastrointestinal Gastrointestinal: Denies abdominal pain, constipation, diarrhea or vomiting Genitourinary Genitourinary ED: Denies dysuria, hematuria or urinary frequency Musculoskeletal Musculoskeletal: Denies arthralgias, back pain, myalgias or neck pain Integumentary Denies abscess, Abrasions or rash Neurologic Neurologic: Reports headache(s); Denies paresthesias or weakness Psychiatric Psychiatric: Denies anxiety Endocrine Endocrinology: Denies cold intolerance or heat intolerance Hematologic/Lymphatic Hematologic/Lymphatic: Reports systems reviewed and no addt'l complaints, exceptas documented EXAM Physical Exam Const Vital Signs: 06/30/23 13:39 06/30/23 13:54 Temperature 97.5 F L Temperature Source Temporal Pulse Rate 92 Respiratory Rate 18 Respiratory Effort Short of Breath Labored Respiratory Depth Normal Respiratory Pattern Normal Blood Pressure 135/100 H Blood Pressure Mean 111 Pulse Ox 100 Oxygen Delivery Method Room Air Room Air Positive well nourished and well developed General Appearance ED: well developed, NAD and pallor; Negative for cyanotic or diaphoretic HEENT Reports moist mucous membranes HEENT Narrative: Is atraumatic and normocephalic. Ears are normal. Nares are patent. Posteriorpharynx erythema is a. Uvula midline. Patient has numerous piercings of her nose. There is no frontal, ethmoid or maxillary sinus tenderness to percussion. Eyes PERRL and EOMs intact bilaterally Eyes Narrative: There is no photophobia. General Eye ED: Negative for pale conjunctiva or scleral icterus Neck no lymphadenopathy, supple and no JVD Resp normal respiratory effort and clear to auscultation bilaterally Cardio regular rate, regular rhythm, S1 normal heart sound, S2 normal heart sound and no murmurs GI normal to inspection, nondistended, normoactive bowel sounds, non-tender, non-distended and no masses; Negative for hepatosplenomegaly Palpation: soft Back/Spine no CVA tenderness Thoracic Spine / Upper Back: Negative for thoracic spinal tenderness Lumbar Spine / Lower Back: Negative for lumbar spinal tenderness Extremity normal to inspection General Extremety ED: Negative for edema or tenderness General Extremity: Negative for edema Neuro oriented x3, CN's II-XII intact bilaterally and no sensory deficits noted Sensorium / Orientation: alert Motor Exam: strength 5/5 throughout Psych mental status grossly normal Attitude: No agitated Mood & Affect: Negative for anxious or tearful Skin no rashes or lesions noted, no wounds and skin turgor normal General Skin Exam: elasticity normal and pallor; Negative for jaundice MDM MDM MDM Narrative Medical decision making narrative: Patient with transient multiple symptoms. This may be somatic, this may represent tension headache or musculoskeletal headache. Her chest pain since itonly lasts fleeting seconds is not cardiac in is not reproducible. Will obtain a chest x- ray to assess for pneumonia or pneumothorax. CBC was obtained to assess for anemia since she appears pale. This may explain her dyspnea. Her vital signs remarkable for slight elevation of blood pressure. Lab Data Attestation: I reviewed the patient's lab results. Lab results narrative: BC is normal. Labs: Laboratory Results - last 24 hr 06/30/23 14:50 WBC 7.3 RBC 4.20 Hgb 13.2 Hct 39.6 MCV 94.3 MCH 31.4 MCHC 33.3 RDW Std Deviation 44.5 H RDW Coeff of Cinthya 12.8 Plt Count 321 MPV 10.3 Immature Gran % (Auto) 0.300 Neut % (Auto) 60.1 Lymph % (Auto) 33.0 [place] % (Auto) 4.8 Eos % (Auto) 1.0 Baso % (Auto) 0.8 Absolute Neuts (auto) 4.4 Absolute Lymphs (auto) 2.40 Nucleated RBC % 0 Radiography Chest X-Ray - ED: 2 View and Read by ED Physician (Silhouette and size normal. Lung parenchyma is normal. There is no effusion or infiltrate noted. Perihilarregions normal. Osseous structures are unremarkable. This is independent reviewed interpreted by me at 08/14/2000.) Differential Diagnosis Chest pain/SOB: pulmonary embolism Reason(s) PE less likely: Positive for PERC negative, pneumothorax Reason(s) pneumothorax less likely: Positive for bilateral breath sounds and [employer] withhout PTX, pneumonia Reason(s) pneumonia lesslikely: Positive for no infiltrate on CXR, no elevation in WBC count, no noted fever and symptoms not consistent with acute infection and aortic dissection Reason(s) Aortic dissection less likely:: Positive for normal vascular exam, no history of HTN, normal neurological exam, no significant risk factors for dissection, no widened mediastinum on CXR, pain not sudden onset, no ripping/tearing pain, no pain to back and blood pressure appropriate in ED Discharge Plan Triage Chief Complaint: Shortness of Breath ED Provider: Devyn Ramos Dx/Rx/DC Orders Clinical Impression: Intermittent chest pain, Dyspnea, Pain in head, Bilateral flank pain Instructions: ED Chest Pain, Noncardiac, ED Chest Pain, Uncertain Cause, ED Dyspnea Prescriptions: No Action sucralfate 1 gram tablet 1 g PO ACHS Patient Comments: TAKE 1 TABLET BY MOUTH BEFORE MEAL(S) AND AT BEDTIME lamotrigine 100 mg tablet 100 mg PO Q12H benztropine 0.5 mg tablet 0.5 mg PO DAILY PRN (Reason: muscle spasm) Patient Comments: TAKE 1 TABLET BY MOUTH ONCE DAILY NEEDED FOR ABNORMAL MUSCLE MOVEMENTS omeprazole [omeprazole] 20 mg capsule,delayed release(DR/EC) 20 mg PO DAILY Qty: 30 0RF Primary Care Provider: Charly Nassar Referrals: Charly Nassar MD [Primary Care Provider] - 1 Week if not improving Disposition Disposition: Home, Self Care What to do if you have Problems For any increased pain, shortness of breath, bleeding, nausea or vomiting, chestpain, or any unexpected problems, contact your Primary Care Provider. Call [facility] ([phone]) or report to the closest Emergency Room. Call 911 if necessary. 06/30/23 1504 <Electronically signed by Devyn Ramos MD> Cosigner Signature (if applicable): CC: Dr. Charly Nassar MD ~ Signed [facility] Work Phone: 1(831) 770-277711-21-2023 Miscellaneous Notes* Telephone Encounter - Fela Hutchinson RN - 06/30/2023 12:45 PM EST Patient call in for chest discomfort with trouble catching breath. Issue has been going off and on for a day. Nurse Triage assessment completed with protocol recommending for disposition of Go to ED now. Care advice reviewed with patient, patient stated understanding. Reason for Disposition [1] Chest pain (or angina) comes and goes AND [2] is happening [...] finished las menstrual cycle. Protocols used: Chest Orca-MYQNR-JC documented in this encounterTr[facility]ull [facility]11-02-2023 Miscellaneous Notes* Telephone Encounter - Sahara Hansen LPN - 06/11/2023 10:14 AM EDT Spoke with Ko Galindo on June 11, 2023.. Informed Ms. Galindo of results-Negative / and instructions to establish care with New GI provider. Ms. Ko Galindo verbalized understanding gave her scheduling number [phone] and transferred her to scheduling for an appointment. Sahara Floyd LPN documented in this encounterTrumbull [facility] Center11-01-2023 History of Present illness Narrative* Jose Juan Rosas LPN - 06/10/2023 2:00 PM EDT Name: Ko Avinash Mateo CCF#: [id number] Date: 06/10/2023 LACTOSE - BREATH HYDROGEN & [...] .Jose Juan Rosas LPN documented in this encounterTrumbull [facility] Center09-25-2023 History of Present illness Narrative* Junie Shen RT(R) - 05/04/2023 9:20 AM EDT Radiology Service Progress Note PATIENT NAME: Ko Galindo DATE OF SERVICE: May 04, 2023 TIME: 9:56 AM PATIENT IDENTITY VERIFICATION COMPLETED USING TWO (2) IDENTIFIERS: Name and Date of confirmedby patient verbally. FALL SCREENING: Has the patient [...] 04, 2023 9:56 AM documented in this encounterTrumbull [facility] Center09-15-2023 Nurse Note* Laila Bryan RN - 04/24/2023 9:33 AM EDT Abdomen soft non-distended. Will continue to monitor. documented in this encounterTrumbull [facility] Medical Center09-15-2023 History and physical note * Cheryl Alfaro MD - 04/24/2023 9:00 AM EDT UPDATED PROCEDURAL SEDATION HISTORY AND PHYSICAL EXAMINATION SERVICE DATE: 04/24/2023 SERVICE TIME: 8:53 PHYSICAL EXAM MUST BE COMPLETED ON ADMISSION PROCEDURE: esophagogastroduodenoscopy possible biposies Procedure Indications: abdominal bloating, heartburn The History and Physical (completed in the past 30 days) has been reviewed and the patient has beenexamined. The contents accurately reflect the patient's condition [...] SIGNATURE: Cheryl Alfaro MD PATIENT NAME: Ko Galindo DATE: April 24, 2023 TIME: 8:54 AM Source Note - Cheryl Alfaro MD - 04/24/2023 9:00 AM EDT Ko Galindo is a 27 year old year old [...] stuck under. 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 Patient evaluated at [facility] ED on 04/01 for complaint of nausea, [...] time swallowing and feels like something is stuckin her throat. Reports she is having a hard time talking. Patient's words sound clear, but can hearvoice a little shaky. Reports she does have [...] for the last week. Described as intermittent throbbingor sharp without radiation. Not treating with anything OTC for symptoms. Exacerbated with cough, sneeze, eating fatty foods or carbs. Admits to 3-4 episodes of watery/loose stools per day and heartburn/reflux. Noted she has had 25 lb weight loss since 08/2021. States she has lost this weight over the last 5-6months by eating healthier diet. Also has history of bulimia and has been inducing vomiting about 3times per week for the last 5-6 months. [...] makes her dizzy. I have suggested that shego by to see about something for the cough. 03/14/19 karen Joxavi, N.Beltran. Presents with RUQ pain, nausea and hematochezia. Patients states she is in a lot of pain immediately after meals. She has tried eating in small amount that seems to help a little bit. States sometimes when she eats, she literally burps for half anhour straight. She states she believe since taking gluten out of her diet, her issues are better, but still there, and she would like to get a scope done since it was suggested by Dr. Nassar about a year ago. She reports some occasional small amounts of blood in stools. Denies Weight loss, recenttraveling fevers, chills, nausea, vomiting, constipation, hematochezia, melana, dysuria, hematuria,frequency or urgency. Positive for diarrhea a couple times a day.Just finished last menstrual period yesterday Ko Galindo is a 23 year old female who [...] has been up and around. She gets likemotion sickness or car sick (but isn't in [...] by mouth once daily. (Patient not taking: Reportedon 04/18/2019) ondansetron orally disintegrating (ZOFRAN ODT) 4 [...] BP Cuff Size: Regular Adult) Pulse 91 Temp36.9 C (98.4 F) (Temporal) Ht 160 cm (5' 3) Wt 61.1 kg (134 lb 12.8 oz) LMP 04/02/2023 (Exact Date) SpO2 96% BMI 23.88 kg/m BP 115/67 (BP Site: Right Arm, BP Position: Sitting, BP Cuff Size: Regular Adult) Pulse 91 Temp36.9 C (98.4 F) (Temporal) Ht 160 cm (5' 3) Wt 61.1 kg (134 lb 12.8 oz) [...] such as liver/spleen, perforation of the GI tract,inability to complete the procedure, complications of anesthesia, etc. - the patient understands. The patient wishes to proceed. I have answered all questions to the patient s satisfaction and the patient has no further questions. . * Cheryl Alfaro MD - 04/24/2023 9:00 AM EDT Ko Galindo is a 27 year old year old [...] stuck under. 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 Patient evaluated at [facility] ED on 04/01 for complaint of nausea, [...] time swallowing and feels like something is stuckin her throat. Reports she is having a hard time talking. Patient's words sound clear, but can hearvoice a little shaky. Reports she does have [...] for the last week. Described as intermittent throbbingor sharp without radiation. Not treating with anything OTC for symptoms. Exacerbated with cough, sneeze, eating fatty foods or carbs. Admits to 3-4 episodes of watery/loose stools per day and heartburn/reflux. Noted she has had 25 lb weight loss since 08/2021. States she has lost this weight over the last 5-6months by eating healthier diet. Also has history of bulimia and has been inducing vomiting about 3times per week for the last 5-6 months. [...] makes her dizzy. I have suggested that shego by to see about something for the cough. 03/14/19 Cynthia Guerrero N.P. Presents with RUQ pain, nausea and hematochezia. Patients states she is in a lot of pain immediately after meals. She has tried eating in small amount that seems to help a little bit. States sometimes when she eats, she literally burps for half anhour straight. She states she believe since taking gluten out of her diet, her issues are better, but still there, and she would like to get a scope done since it was suggested by Dr. Nassar about a year ago. She reports some occasional small amounts of blood in stools. Denies Weight loss, recenttraveling fevers, chills, nausea, vomiting, constipation, hematochezia, melana, dysuria, hematuria,frequency or urgency. Positive for diarrhea a couple times a day.Just finished last menstrual period yesterday Ko Galindo is a 23 year old female who [...] has been up and around. She gets likemotion sickness or car sick (but isn't in [...] by mouth once daily. (Patient not taking: Reportedon 04/18/2019) ondansetron orally disintegrating (ZOFRAN ODT) 4 [...] BP Cuff Size: Regular Adult) Pulse 91 Temp36.9 C (98.4 F) (Temporal) Ht 160 cm (5' 3) Wt 61.1 kg (134 lb 12.8 oz) LMP 04/02/2023 (Exact Date) SpO2 96% BMI 23.88 kg/m BP 115/67 (BP Site: Right Arm, BP Position: Sitting, BP Cuff Size: Regular Adult) Pulse 91 Temp36.9 C (98.4 F) (Temporal) Ht 160 cm (5' 3) Wt 61.1 kg (134 lb 12.8 oz) [...] such as liver/spleen, perforation of the GI tract,inability to complete the procedure, complications of anesthesia, etc. - the patient understands. The patient wishes to proceed. I have answered all questions to the patient s satisfaction and the patient has no further questions. . documented in this encounterTr[facility]-07-[facility] History of Present illness Narrative* Vivian Gayle PA-C - 04/16/2023 12:34 PM EDT DEPARTMENT OF GASTROENTEROLOGY NEW PATIENT/CONSULT GI MOTILITY REASON FOR VISIT Ko Galindo is a 27 year old year old female who is scheduled for evaluation of GERD. My final recommendations will be communicated back to the requesting physician by the way of the shared medical record, fax, or via US Mail. HISTORY OF PRESENT ILLNESS Ko Galindo is a 27 year old year old [...] stuck under. 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 Patient evaluated at [facility] ED on 04/01 for complaint of nausea, [...] time swallowing and feels like something is stuckin her throat. Reports she is having a hard time talking. Patient's words sound clear, but can hearvoice a little shaky. Reports she does have [...] for the last week. Described as intermittent throbbingor sharp without radiation. Not treating with anything OTC for symptoms. Exacerbated with cough, sneeze, eating fatty foods or carbs. Admits to 3-4 episodes of watery/loose stools per day and heartburn/reflux. Noted she has had 25 lb weight loss since 08/2021. States she has lost this weight over the last 5-6months by eating healthier diet. Also has history of bulimia and has been inducing vomiting about 3times per week for the last 5-6 months. returning for follow up regarding multiple GI complaints. I saw the patient in consultation on 03/14/19. That note has been reviewed. RUQ US was ordered but we didn't set that up before the procedures. 04/18/19 Cynthia Guerrero Functional bowel disorder The patient was seen by Dr. Alfaro for upper endoscopy and colonoscopy, with [place], 04/12/19. The procedure report has been reviewed [...] makes her dizzy. I have suggested that shego by to see about something for the cough. 03/14/19 Cynthia Guerrero N.Beltran. Presents with RUQ pain, nausea and hematochezia. Patients states she is in a lot of pain immediately after meals. She has tried eating in small amount that seems to help a little bit. States sometimes when she eats, she literally burps for half anhour straight. She states she believe since taking gluten out of her diet, her issues are better, but still there, and she would like to get a scope done since it was suggested by Dr. Nassar about a year ago. She reports some occasional small amounts of blood in stools. Denies Weight loss, recenttraveling fevers, chills, nausea, vomiting, constipation, hematochezia, melana, dysuria, hematuria,frequency or urgency. Positive for diarrhea a couple times a day.Just finished last menstrual period yesterday Ko Galindo is a 23 year old female who [...] has been up and around. She gets likemotion sickness or car sick (but isn't in [...] MEDICAL HISTORY Diagnosis Date Anxiety Bipolar disorder ([facility]) counseling center Broken leg 08/2014 Left Leg Deliberate self-cutting history of Depression GERD (gastroesophageal reflux disease) History of bulimia Overweight (BMI 25.0-29.9) PAST SURGICAL HISTORY Procedure Laterality Date COLONOSCOPY FLX DX W/COLLJ SPEC WHEN PFRMD 04/12/2019 Colonoscopy ESOPHAGOGASTRODUODENOSCOPY TRANSORAL DIAGNOSTIC 04/12/2019 EGD PAST SURGICAL HISTORY OF / Left Knee, pins placed Current Outpatient Medications [...] by mouth once daily. (Patient not taking: Reportedon 04/18/2019) ondansetron orally disintegrating (ZOFRAN ODT) 4 [...] BP Cuff Size: Regular Adult) Pulse 91 Temp36.9 C (98.4 F) (Temporal) Ht 160 cm (5' 3) Wt 61.1 kg (134 lb 12.8 oz) LMP 04/02/2023 (Exact Date) SpO2 96% BMI 23.88 kg/m BP 115/67 (BP Site: Right Arm, BP Position: Sitting, BP Cuff Size: Regular Adult) Pulse 91 Temp36.9 C (98.4 F) (Temporal) Ht 160 cm (5' 3) Wt 61.1 kg (134 lb 12.8 oz) [...] which included preparing to see the patient, [id number] patient care, completing clinical documentation, obtaining and/or reviewing separately obtained history, performing a medically appropriate examination, counseling and educating the patient/family/caregiver, ordering medications, tests, or procedures, communicating results tothe patient/family/caregiver, and care coordination (not separately reported). Vivian Gayle PA-C Neurogastroenterology Section Department of Gastroenterology April 07, 2023 documented in this encounterTrumbull [facility]08-29-2023 Instructions* Patient Instructions* Vivian Gayle PA-C - 04/07/2023 3:49 PM EDT Images from the original note were not included. Plan: breath test fructose breath test lactose esophagram H. pylori & celiac EGD follow-up mark't several weeks after tests completed Nutrition Guidelines for the Treatment of Gastroesophageal Reflux Gastroesophageal reflux disease, or GERD, occurs when the lower esophageal sphincter (LES) does notclose properly and stomach contents leak back into [...] foods: Caffeine (regular coffee, regular tea, chocolate) Sauk fruits/juices Carbonated beverages Alcohol Mints (peppermint, spearmint) [...] milk, chocolate shakes or drinks, milkshakes, whole milkfat yogurt Breads and cereals Plain (with or without whole grain flour) bread, cereals, rolls, and crackers, pancakes, waffles, muffins made with low-fat ingredients, bagels, corn tortillas Breads and cereals prepared with high-fat ingredients such as croissants, biscuits, doughnuts, sweet rolls, muffins, granola, pizza, British toast Desserts Evelio food cake, sponge cake, [...] juices (any except those in the right column)[place], lemon, ruby, tangerine, pineapple, grapefruit Meats and meat substitutes [...] pasta, pasta with low-fat cream sauce, rice British-fried potatoes, risotto, potato chips, pastas served with [...] mint-flavored coffee and/or teas, alcoholic beverages Copyright 12[address] [facility]. All rights reserved. This information is provided by the [facility] and is not intended to replace the medical advice of your doctor or health care provider. Please consult your health care provider for advice about a specific medical condition. For additional health information, please contact the Center for Consumer Health Information at the [facility] or toll-free extension [phone]. If you prefer, you may visit [email or web address] or [email or web address]. This document was last reviewed on: 2018 index#[id number] Discussed the etiology of GERD with patient. Encouraged lifestyle changes and the need for a lifelong regimen of medications to help reduce symptoms. Discussed the potential for serious complicationsif symptoms are not resolved. Discussed raising the head of the bed 4 to 6 inches; avoiding chocolate, coffee, peppermint, fruit juices, tomatoes, greasy and spicy foods. Encouraged moderation of alcoholic beverages, and avoidance of smoking. Gastroparesis diet: [email or web address]?la=en documented in this encounterTrumbull [facility] Medical Center08-25-2023 History of Present illness Narrative* Miladis Nassar MD - 04/03/2023 8:03 AM EDT Chief Complaint Patient presents with: [facility] F/U [facility] Avinash Galindo is a 27 year old female who presents here today for ER Follow Up.. Patient evaluated at [facility] ED on 04/01 for complaint of nausea, [...] MEDICAL HISTORY Diagnosis Date Anxiety Bipolar disorder ([facility]) counseling center Broken leg 08/2014 Left Leg [...] by mouth twice daily. (Patient not taking: Reportedon 05/21/2021 ) naltrexone (TREXAN) 50 mg tablet Take 50 mg by mouth once daily. (Patient not taking: Reported on 05/21/2021 ) QUEtiapine (SEROQUEL) 50 mg tablet Take 1 tablet by mouth twice daily. (Patient not taking: Reported on 04/18/2019 ) FLUoxetine (PROZAC) 20 mg capsule Take 1 capsule by mouth once daily. (Patient not taking: Reportedon 04/18/2019 ) ondansetron orally disintegrating (ZOFRAN ODT) 4 mg disintegrating tablet Take 1 tablet by mouth every 6 hours as needed for Nausea/Vomiting. (Patient not taking: Reported on 05/21/2021 ) mupirocin (BACTROBAN) 2 % ointment Apply 1 application to affected area twice daily. Location: [facility] (Patient not taking: Reported on 04/15/2019 ) [...] above. Miladis Nassar MD documented in this encounterTrumbull [facility] Center08-23-2023 Miscellaneous Notes* Telephone Encounter - Miladis Nassar MD - 04/01/2023 10:15 AM EDT Agree with ER evaluation now with f/u in 3-5 days after discharge. * Telephone Encounter - Elma Bryant RN - 04/01/2023 10:09 AM EDT Patient phoned to reports she felt very nauseous when woke up. Vomited several times. Vomit was dark red blood with mucous. Reports she is no longer nauseous, but is having a hard time swallowing andfeels like something is stuck in her throat. Reports she is having a hard time talking. Patient's words sound clear, but can hear voice a little shaky. Reports she does have a stomach ulcer. Patient agreeable to ER for evaluation. Will have family drive her. documented in this encounterTrumbull [facility] Center06-22-2023 Miscellaneous Notes* Telephone Encounter - Sheba Wilhelm Ma - 01/29/2023 8:19 AM EDT Pt wrote into office via [employer] asking about lab results and asking about next step. I notified her of labs/US results with Provider recommendation via [employer]. Sheba Wilhelm Ma * Telephone Encounter - Melida Dick APRN.CNP - 01/29/2023 7:43 AM EDT Can you please call the patient and [...] gastroenterology. Please let me know what she prefers.Thank you. Melida Dick APRN.CNP documented in this encounterTrumbull [facility] Medical Center06-21-2023 History of Present illness Narrative* Gracy Choi RDMS - 01/28/2023 11:30 AM EDT Radiology Service Progress Note PATIENT NAME: Ko Galindo DATE OF SERVICE: January 28, 2023 TIME: 11:40 AM PATIENT IDENTITY VERIFICATION COMPLETED USING TWO (2) IDENTIFIERS: Name and Date of confirmedby patient verbally. FALL SCREENING: Has the patient [...] 28, 2023 11:40 AM documented in this encounterTrumbull [facility] Medical Center06-21-2023 Instructions* Patient Instructions* Melida Dick APRN.CNP - 01/28/2023 10:49 AM EDT Get labs completed Schedule appt for ultrasound May continue with nausea medication as needed. Stay well hydrated. Try to limit fats in diet until results are back. Follow up pending test results. documented in this encounterTrumbull [facility] Center06-21-2023 History of Present illness Narrative* Melida Dick APRN.CNP - 01/28/2023 10:20 AM EDT This is a 27 year old female who presents today with: Patient presents with: Acute Visit: naueseous and throwing up HISTORY OF PRESENT ILLNESS: Ko Galindo is a 27 year old female. Patient presents with: Acute Visit: naueseous and throwing up Patient of Dr. Nassar here in the office for nausea/vomiting in the morning. Has been on going fora year, has lost about 40 lbs. Refers that she has history of bulemia, spoke with psychiatry and noconcerns for repeated thoughts or behavior related to [...] by mouth twice daily. (Patient not taking: Reportedon 05/21/2021 ) naltrexone (TREXAN) 50 mg tablet Take 50 mg by mouth once daily. (Patient not taking: Reported on 05/21/2021 ) QUEtiapine (SEROQUEL) 50 mg tablet Take 1 tablet by mouth twice daily. (Patient not taking: Reported on 04/18/2019 ) FLUoxetine (PROZAC) 20 mg capsule Take 1 capsule by mouth once daily. (Patient not taking: Reportedon 04/18/2019 ) ondansetron orally disintegrating (ZOFRAN ODT) 4 mg disintegrating tablet Take 1 tablet by mouth every 6 hours as needed for Nausea/Vomiting. (Patient not taking: Reported on 05/21/2021 ) mupirocin (BACTROBAN) 2 % ointment Apply 1 application to affected area twice daily. Location: [facility] (Patient not taking: Reported on 04/15/2019 ) [...] lb) LMP 08/17/2020 (Exact Date) SpO2 96% BMI25.28 kg/m PHYSICAL EXAM: General Appearance: Well appearing, [...] effects were discussed and patient voices understanding. Melida Dick APRN.CNP This note was partially generated using [employer] voice recognition system. Note was reviewed for accuracy. There may be minor misspellings or grammar miscues with [employer] voice recognition. documented in this encounterTrumbull [facility] Medical Center04-05-2023 History of Present illness Narrative* Miladis Nassar MD - 11/12/2022 4:53 PM EDT Chief Complaint Patient presents with: Abdominal Pain: Center of abdomen x1 week Medication Follow-up HPI Ko Galindo is a 27 year old female who presents here today for Above Complaints. Patient complaining today of epigastric pain for the last week. Described as intermittent throbbingor sharp without radiation. Not treating with anything OTC for symptoms. Exacerbated with cough, sneeze, eating fatty foods or carbs. Admits to 3-4 episodes of watery/loose stools per day and heartburn/reflux,. Denies fever/chills, nausea, vomiting, hematochezia, melena, urinary symptoms, abnormal vaginal bleeding or discharge, alcohol abuse. She states that she took a test 2 days ago which was negative. Sexually active without contraception. LMP: 39. Periods are typically regular. Patient notes that she has not follow up with her psychiatrist at the counseling center since last year for her history of bulimia, anxiety, and bipolar disorder. No on any of her medications now. Noted she has had 25 lb weight loss since 08/2021. States she has lost this weight over the last 5-6months by eating healthier diet. Also has history of bulimia and has been inducing vomiting about 3times per week for the last 5-6 months. [...] by mouth twice daily. (Patient not taking: Reportedon 05/21/2021 ) naltrexone (TREXAN) 50 mg tablet Take 50 mg by mouth once daily. (Patient not taking: Reported on 05/21/2021 ) QUEtiapine (SEROQUEL) 50 mg tablet Take 1 tablet by mouth twice daily. (Patient not taking: Reported on 04/18/2019 ) FLUoxetine (PROZAC) 20 mg capsule Take 1 capsule by mouth once daily. (Patient not taking: Reportedon 04/18/2019 ) ondansetron orally disintegrating (ZOFRAN ODT) 4 mg disintegrating tablet Take 1 tablet by mouth every 6 hours as needed for Nausea/Vomiting. (Patient not taking: Reported on 05/21/2021 ) mupirocin (BACTROBAN) 2 % ointment Apply 1 application to affected area twice daily. Location: [facility] (Patient not taking: Reported on 04/15/2019 ) [...] risks of continued purging and recommended she callher counselor and psychiatrist for follow up and to resume medications. She agrees to this. Denies SI/HI. Contracted for safety. Miladis Nassar MD documented in this encounterTrumbull [facility] Medical Center08-27-2022 Miscellaneous Notes* Telephone Encounter - Lilian Hay RN - 04/05/2022 10:39 PM EDT Reason for Call: elevated B/P, h/a, swelling, redness to let knee Outcome of Call: Advised go to E D Reason for Disposition Systolic BP >= 160 OR Diastolic >= 100 [1] Redness AND [2] painful when touched AND [3] no fever Answer Assessment - Initial Assessment Questions 1. LOCATION: left knee, on top of left knee 2. SIZE and DESCRIPTION: top of kneecap, per pt with redness to site 3. ONSET: first starting four days ago, subsided, recurring today 4. PAIN: /10 5. SETTING: negative 6. AGGRAVATING FACTORS: negative [...] negative, per pt Protocols used: High Blood [id number], Knee Asdvxvfc-ZSIWX-HX [facility]* Diagnosis Epigastric pain- Primary Abdominal pain, epigastric Bulimia nervosa documented in this encounter [facility] note* Diagnosis RUQ pain- Primary Abdominal pain, right upper quadrant Nausea and vomiting, unspecified vomiting type documented in this encounter [facility] noteNo assessment information availableWBerger Hospital Work Phone: Evaluation note* Diagnosis Nausea and vomiting, unspecified vomiting type- Primary Hematemesis with nausea Gastroesophageal reflux disease, unspecified whether esophagitis present Dysphagia, unspecified type Odynophagia Dysphagia, unspecified Epigastric pain Abdominal pain, epigastric documented in this encounter [facility] note* Diagnosis Abdominal pain, unspecified abdominal location- Primary Gastroesophageal reflux disease, unspecified whether esophagitis present Nausea and vomiting, unspecified vomiting type Hematemesis with nausea Dysphagia, unspecified type Odynophagia Dysphagia, unspecified Bloating Flatulence, eructation, and gas pain Nausea Nausea alone Heartburn- Primary documented in this encounter [facility] note* Diagnosis Nausea and vomiting, unspecified vomiting type Nausea Nausea alone documented in this encounter [facility] note* Diagnosis Bloating Flatulence, eructation, and gas pain documented in this encounter [facility] note* Diagnosis RUQ pain Abdominal pain, right upper quadrant documented in this encounter [facility] note* Diagnosis Heartburn- Primary Gastroesophageal reflux disease, unspecified whether esophagitis present Nausea and vomiting, unspecified vomiting type Dysphagia, unspecified type Abdominal pain, unspecified abdominal location documented in this encounter [facility] note* Diagnosis Posterior chest pain- Primary Other chest pain Anxiety Anxiety state, unspecified Bipolar affective disorder, current episode mixed, current episode severity unspecified ([facility]) Nicotine abuse Tobacco use disorder [facility]* Diagnosis Encounter for gynecological examination (general) [...] bleeding) Postcoital bleeding [facility]* Diagnosis Right hand pain- Primary Pain in limb Closed displaced fracture of shaft of fifth metacarpal bone of right hand, initial encounter [facility]* Diagnosis Right hand pain- Primary Pain in limb Closed displaced fracture of shaft of fifth metacarpal bone of right hand, initial encounter [facility]* Diagnosis Closed displaced fracture of shaft of fifth metacarpal bone of right hand, initial encounter- Primary Displaced fracture of shaft of fifth metacarpal bone, right hand, initial encounter for closed fracture [facility]* Diagnosis Routine physical examination- Primary Routine general medical examination at a health care facility Vaping nicotine dependence, tobacco product Cellulitis of skin Cellulitis and abscess of unspecified site Bipolar affective disorder, current episode mixed, current episode severity unspecified (HCC) Anxiety and depression Dysthymic disorder documented in this encounter [facility]* Diagnosis Encounter for gynecological examination (general) (routine) without abnormal findings- Primary Screening for STD (sexually transmitted disease) Screening examination for venereal disease Fibrocystic breast changes of both breasts [facility] Additional Instructions I do not specifically find any abnormality on your chest wall. Motrin for pain. Follow-up with your doctor if not improving.[facility] Work Phone: Reason for referral (narrative)* Diagnostic Procedure Only (Routine) - Pending Review Specialty Diagnoses / Procedures Referred By Helen lopez Referred To Contact MOLECULAR & FUNCTIONAL IMAGING Diagnoses Nausea Procedures NM GASTRIC EMPTYING SOLID GASTRIC EMPTYING STUDY Vivian Gayle PA-C [address] [place], [place] [id number] Molecular & Functional Imaging [address] [place] [address] Referral ID Status Reason Start Date Expiration Date Visits Requested Visits Authorized [id number] Pending Review Auto-Generat ed Referral 04/07/2023 05/06/2024 1 1 * Outpatient Procedure (Routine) - Authorized Specialty Diagnoses / Procedures Referred By Helen lopez Referred To Contact [facility] Diagnoses Bloating Procedures BREATH TEST LACTOSE BREATH HYDROGEN/METHANE TEST Vivian Gayle PA-C [address] [id number] [facility] [address] [place] [address] Referral ID Status Reason Start Date Expiration Date Visits Requested Visits Authorized [id number] Authorized Auto-Generat ed Referral 04/07/2023 04/07/2024 1 1 * Diagnostic Procedure Only (Routine) - Authorized Specialty Diagnoses / Procedures Referred By Helen lopez Referred To Contact XR IMAGING Diagnoses Nausea and vomiting, unspecified vomiting type Nausea Procedures XR ESOPHAGRAM RADIOLOGIC EXAM ESOPHAGUS SINGLE CONTRAST STUDY Vivian Gayle PA-C [address] [id number] Xr Imaging [id number] Referral ID Status Reason Start Date Expiration Date Visits Requested Visits Authorized [id number] Authorized Auto-Generat ed Referral 04/07/2023 05/06/2024 1 1 * Outpatient Procedure (Routine) - Authorized Specialty Diagnoses / Procedures Referred By Helen lopez Referred To Contact [facility] Diagnoses Gastroesophageal reflux disease, unspecified whether esophagitis present Nausea and vomiting, unspecified vomiting type Dysphagia, unspecified type Abdominal pain, unspecified abdominal location Procedures EGD DIAGNOSTIC ESOPHAGOGASTRODUODENOSCOPY TRANSORAL DIAGNOSTIC Vivian Gayle PA-C [address] [address] Cheryl Alfaro MD [address] [place] [address] Referral ID Status Reason Start Date Expiration Date Visits Requested Visits Authorized [id number] Authorized Auto-Generat ed Referral 04/20/2023 08/09/[address] [facility] for referral (narrative)* Diagnostic Procedure Only (Routine) - Closed Specialty Diagnoses / Procedures Referred By Helen t Referred To Contact XR IMAGING Diagnoses Nausea and vomiting, unspecified vomiting type Nausea Procedures XR ESOPHAGRAM RADIOLOGIC EXAM ESOPHAGUS SINGLE CONTRAST STUDY Vivian Gayle PA-C [address] [address] [place] [address] Referral ID Status Reason Start Date Expiration Date V isits Requested Visits Authorized [id number] Closed Auto-Generate d Referral 04/07/2023 05/06/[address] [facility] for referral (narrative)* Diagnostic Procedure Only (Urgent) - Closed Specialty Diagnoses / Procedures Referred By Helen lopez Referred To Contact US IMAGING Diagnoses RUQ pain Procedures US ABD RIGHT UPPER QUADRANT US ABDOMINAL REAL TIME W/IMAGE LIMITED Melida Dick APRN.CNP [address] [place] [address] [place] [address] Referral ID Status Reason Start Date Expiration Date V isits Requested Visits Authorized [id number] Closed Auto-Generate d Referral 01/28/2023 02/27/[address] [facility] for referral (narrative)* Outpatient Procedure (Routine) - Closed Specialty Diagnoses / Procedures Referred By Helen t Referred To Contact [facility] Diagnoses Gastroesophageal reflux disease, unspecified whether esophagitis present Nausea and vomiting, unspecified vomiting type Dysphagia, unspecified type Abdominal pain, unspecified abdominal location Procedures EGD DIAGNOSTIC ESOPHAGOGASTRODUODENOSCOPY TRANSORAL DIAGNOSTIC Vivian Gayle PA-C [address] [address] Cheryl Alfaro MD [address] [place] [address] Referral ID Status Reason Start Date Expiration Date V isits Requested Visits Authorized [id number] Closed Auto-Generate d Referral 04/20/2023 08/09/[address] [facility] for referral (narrative)* Diagnostic Procedure Only (Routine) - Closed Specialty Diagnoses / Procedures Referred By Helen lopez Referred To Contact XR IMAGING Diagnoses Right hand pain Procedures XR HAND GENERAL 3V PA/LAT/OBL RIGHT RADEX HAND MINIMUM 3 VIEWS Birgit Turcios PA-C [address] [place] [address] [place] [id number] Referral ID Status Reason Start Date Expiration Date V isits Requested Visits Authorized [id number] Closed Auto-Generate d Referral 07/16/2023 08/14/[address] [facility] for visit Narrative* Outpatient Procedure (Routine) - Closed Specialty Diagnoses / Procedures Referred By Helen lopez Referred To Contact [facility] Diagnoses Gastroesophageal reflux disease, unspecified whether esophagitis present Nausea and vomiting, unspecified vomiting type Dysphagia, unspecified type Abdominal pain, unspecified abdominal location Procedures EGD DIAGNOSTIC ESOPHAGOGASTRODUODENOSCOPY TRANSORAL DIAGNOSTIC Vivian Gayle PA-C [address] [address] Cheryl Alfaro MD [address] [place] [address] Referral ID Status Reason Start Date Expiration Date V isits Requested Visits Authorized [id number] Closed Auto-Generate d Referral 04/20/2023 08/09/2023 1 1 [facility] Summary Purpose Family History No Family History Records FoundNo Family History Records FoundNo Family History Records FoundNo Family History Records FoundNo Family History Records FoundNo Family History Records FoundNo Family History Records FoundNo Family History Records FoundNo Family History Records Found Advance Directives No Advanced Directives Records Found Advance Directive Response Recorded Date/ Time Living Will No February 17, 2023 6:48pm Power of Operations Advisor No February 17 6:48pm Advance Directive Response Recorded Date/ Time Living Will No April 01 11:26am Power of Operations Advisor No April 01 023 11:26am Advance Directive Response Recorded Date/ Time Living Will No June 30 023 1:54pm Power of Operations Advisor No June 30, 2023 1:54pm Advance Directive Response Recorded Date/ Time Living Will No September 07 3:47pm Power of Operations Advisor No September 07, 2023 3:47pm Reason for Referral Specialty Diagnoses / Procedures Referred By Contac t Referred To Contact General Surgery Diagnoses RUQ pain Procedures CONSULT TO GENERAL SURGERY OFFICE/OUTPATIENT [facility] 60-74 MINUTES Melida Dick, AIR TRAFFIC CONTROL MANAGER.CALL WORKER [address] [place] [address] Referral ID Status Reason Start Date Expiration Date Visits Requested Visits Authorized [id number] Authorized PCP Requested Referral 01/28/2023 01/28/2024 1 1 Specialty Diagnoses / Procedures Referred By Contac t Referred To Contact US IMAGING Diagnoses RUQ pain Procedures US ABD RIGHT UPPER QUADRANT US ABDOMINAL REAL TIME W/IMAGE LIMITED Melida Dick, AIR TRAFFIC CONTROL MANAGER.CALL WORKER [address] [place] [address] Us Imaging Referral ID Status Reason Start Date Expiration Date V isits Requested Visits Authorized [id number] Closed Auto-Generate d Referral 01/28/2023 02/27/2024 1 1 Specialty Diagnoses / Procedures Referred By Contac t Referred To Contact Gastroenterology Diagnoses Gastroesophageal reflux disease, unspecified whether esophagitis present Nausea and vomiting, unspecified vomiting type Hematemesis with nausea Dysphagia, unspecified type Odynophagia Procedures CONSULT TO GASTROENTEROLOGY OFFICE/OUTPATIENT [facility] 60-74 MINUTES Miladis Nassar MD [address] [place] [address] Referral ID Status Reason Start Date Expiration Date Visits Requested Visits Authorized [id number] Authorized PCP Requested Referral 04/03/2023 04/02/2024 1 1 Chief Complaint and Reason for Visit Chief Complaint SORE THROAT Chief Complaint SORE THROAT N/V Chief Complaint N/V sob Chief Complaint sob ANXIETY LUMP ON RIB CAGE Medications Administered Section Inactive Administered Medications - up to 3 most recent administrations Medication Order MAR Action Action Date Dose Rate Site benzocaine 20% 1 [place] (TOPEX) 1 [place], TOPICAL, DIRECTED, Starting on Thu04/24/23 at 0930, [...] Given 04/24/2023 9:19 AM EDT 2 mg Given 04/24/2023 9:17 AM EDT 2 mg Given 04/24/2023 9:13 AM EDT 3 mg Additional Source Comments INFORMATION SOURCE (unrecogn ized section and content) DATE CREATED AUTHOR 04/15/2019 [facility] DATE CREATED AUTHOR AUTHOR'S ORGANIZ ATION 03/04/2020 [facility] DATE CREATED AUTHOR AUTHOR'S ORGANIZ ATION 04/09/2022 [facility] DATE CREATED AUTHOR AUTHOR'S ORGANIZ ATION 07/19/2023 [facility] DATE CREATED AUTHOR AUTHOR'S ORGANIZ ATION 08/13/2023 [facility] DATE CREATED AUTHOR AUTHOR'S ORGANIZ ATION 09/06/2023 [facility] DATE CREATED AUTHOR AUTHOR'S ORGANIZ ATION 09/11/2023 [facility] DATE CREATED AUTHOR AUTHOR'S ORGANIZ ATION 10/27/2023 [facility] DATE CREATED AUTHOR AUTHOR'S ORGANIZ ATION 07/13/2024 [facility] Source Comments (unrecognize d section and content) In the event this informatio n is protected by the Federal Confidentiality of Alcohol and Drug Abuse Patient Records regulations: The Federal rules restrict any use of the information to criminally investigate or prosecute any alcohol or drug abuse patient.[facility] the event this information is protected by the Federal Confidentiality of Alcohol and Drug Abuse Patient Records regulations: The Federal rules restrict any use of the information to criminally investigate or prosecute any alcohol or drug abuse patient.[facility] the event this information is protected by the Federal Confidentiality of Alcohol and Drug Abuse Patient Records regulations: The Federal rules restrict any use of the information to criminally investigate or prosecute any alcohol or drug abuse patient.[facility] the event this information is protected by the Federal Confidentiality of Alcohol and Drug Abuse Patient Records regulations: The Federal rules restrict any use of the information to criminally investigate or prosecute any alcohol or drug abuse patient.[facility] the event this information is protected by the Federal Confidentiality of Alcohol and Drug Abuse Patient Records regulations: The Federal rules restrict any use of the information to criminally investigate or prosecute any alcohol or drug abuse patient.[facility] the event this information is protected by the Federal Confidentiality of Alcohol and Drug Abuse Patient Records regulations: The Federal rules restrict any use of the information to criminally investigate or prosecute any alcohol or drug abuse patient.[facility] the event this information is protected by the Federal Confidentiality of Alcohol and Drug Abuse Patient Records regulations: The Federal rules restrict any use of the information to criminally investigate or prosecute any alcohol or drug abuse patient.[facility] the event this information is protected by the Federal Confidentiality of Alcohol and Drug Abuse Patient Records regulations: The Federal rules restrict any use of the information to criminally investigate or prosecute any alcohol or drug abuse patient.[facility] the event this information is protected by the Federal Confidentiality of Alcohol and Drug Abuse Patient Records regulations: The Federal rules restrict any use of the information to criminally investigate or prosecute any alcohol or drug abuse patient.[facility] the event this information is protected by the Federal Confidentiality of Alcohol and Drug Abuse Patient Records regulations: The Federal rules restrict any use of the information to criminally investigate or prosecute any alcohol or drug abuse patient.[facility] the event this information is protected by the Federal Confidentiality of Alcohol and Drug Abuse Patient Records regulations: The Federal rules restrict any use of the information to criminally investigate or prosecute any alcohol or drug abuse patient.[facility] the event this information is protected by the Federal Confidentiality of Alcohol and Drug Abuse Patient Records regulations: The Federal rules restrict any use of the information to criminally investigate or prosecute any alcohol or drug abuse patient.[facility] the event this information is protected by the Federal Confidentiality of Alcohol and Drug Abuse Patient Records regulations: The Federal rules restrict any use of the information to criminally investigate or prosecute any alcohol or drug abuse patient.[facility] the event this information is protected by the Federal Confidentiality of Alcohol and Drug Abuse Patient Records regulations: The Federal rules restrict any use of the information to criminally investigate or prosecute any alcohol or drug abuse patient.[facility] the event this information is protected by the Federal Confidentiality of Alcohol and Drug Abuse Patient Records regulations: The Federal rules restrict any use of the information to criminally investigate or prosecute any alcohol or drug abuse patient.[facility] the event this information is protected by the Federal Confidentiality of Alcohol and Drug Abuse Patient Records regulations: The Federal rules restrict any use of the information to criminally investigate or prosecute any alcohol or drug abuse patient.[facility] the event this information is protected by the Federal Confidentiality of Alcohol and Drug Abuse Patient Records regulations: The Federal rules restrict any use of the information to criminally investigate or prosecute any alcohol or drug abuse patient.[facility] the event this information is protected by the Federal Confidentiality of Alcohol and Drug Abuse Patient Records regulations: The Federal rules restrict any use of the information to criminally investigate or prosecute any alcohol or drug abuse patient.[facility] Center[facility] the event this information is protected by the Federal Confidentiality of Alcohol and Drug Abuse Patient Records regulations: The Federal rules restrict any use of the information to criminally investigate or prosecute any alcohol or drug abuse patient.[facility] Center[facility] the event this information is protected by the Federal Confidentiality of Alcohol and Drug Abuse Patient Records regulations: The Federal rules restrict any use of the information to criminally investigate or prosecute any alcohol or drug abuse patient.[facility] Center[facility] the event this information is protected by the Federal Confidentiality of Alcohol and Drug Abuse Patient Records regulations: The Federal rules restrict any use of the information to criminally investigate or prosecute any alcohol or drug abuse patient.[facility] Center[facility] the event this information is protected by the Federal Confidentiality of Alcohol and Drug Abuse Patient Records regulations: The Federal rules restrict any use of the information to criminally investigate or prosecute any alcohol or drug abuse patient.[facility] Center[facility] the event this information is protected by the Federal Confidentiality of Alcohol and Drug Abuse Patient Records regulations: The Federal rules restrict any use of the information to criminally investigate or prosecute any alcohol or drug abuse patient.[facility] Reason for Visit (unrecogniz ed section and content) Reason Comments [facility] Specialty Diagnoses / Procedures Referred By Helen lopez Referred To Contact [facility] Diagnoses Closed displaced fracture of shaft of fifth metacarpal bone of right hand, initial encounter Post-operative state Procedures 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 OCCUPATIONAL THERAPY EVAL HIGH COMPLEX 60 MINS Kamaljit Gordon PA-C [address] [place] [address] [facility] [address] [place] [address] Referral ID Status Reason Start Date Expiration Date Visits Requested Visits Authorized [id number] Authorized Financial Clearance Required - Self Pay Patient Cleared - Qualified [id number] 08/12/2023 08/11/2024 99 99 Reason Comments Blood Pressure Knee Swelling Reason Comments Abdominal Pain Center of abdomen x1 week Medication Follow-up Reason Comments Acute Visit naueseous and throwi ng up Reason Comments Results Labs/ US Reason Comments Gastrointestinal Bleed Patient concern Reason Comments ER F/U Reason Comments New Patient Gastroesophageal ref lux disease Specialty Diagnoses / Procedures Referred By Contac t Referred To Contact Gastroenterology Diagnoses Gastroesophageal reflux disease, unspecified whether esophagitis present Nausea and vomiting, unspecified vomiting type Hematemesis with nausea Dysphagia, unspecified type Odynophagia Procedures CONSULT TO GASTROENTEROLOGY OFFICE/OUTPATIENT [facility] 60-74 MINUTES Miladis Nassar MD [address] [place] [address] Referral ID Status Reason Start Date Expiration Date V isits Requested Visits Authorized [id number] Closed PCP Requested Referral 04/03/2023 04/02/2024 1 1 Reason Comments [facility] HB6 Specialty Diagnoses / Procedures Referred By Contac t Referred To Contact XR IMAGING Diagnoses Nausea and vomiting, unspecified vomiting type Nausea Procedures XR ESOPHAGRAM RADIOLOGIC EXAM ESOPHAGUS SINGLE CONTRAST STUDY Vivian Gayle PA-C [address] [address] Xr Imaging [place] [address] Referral ID Status Reason Start Date Expiration Date V isits Requested Visits Authorized [id number] Closed Auto-Generate d Referral 04/07/2023 05/06/2024 1 1 Reason Onset Date Comments Procedure 06/10/2023 Breath Test - La ctose Specialty Diagnoses / Procedures Referred By Helen t Referred To Contact [facility] Diagnoses Bloating Procedures BREATH TEST LACTOSE BREATH HYDROGEN/METHANE TEST Vivian Gayle PA-C [address] [address] [facility] [address] [place] [address] Referral ID Status Reason Start Date Expiration Date V isits Requested Visits Authorized [id number] Closed Auto-Generate d Referral 04/07/2023 04/07/2024 1 1 Reason Comments Radiology US Specialty Diagnoses / Procedures Referred By Carmellaac t Referred To Contact US IMAGING Diagnoses RUQ pain Procedures US ABD RIGHT UPPER QUADRANT US ABDOMINAL REAL TIME W/IMAGE LIMITED Melida Dick, JAKOB.CALL WORKER [address] [place] [address] [place] [address] Referral ID Status Reason Start Date Expiration Date V isits Requested Visits Authorized [id number] Closed Auto-Generate d Referral 01/28/2023 02/27/2024 1 1 Reason Comments Results Reason Comments chest discomfort Reason Comments ER F/U Patient reports in E R 2 x in last week and has concerns- prefers to address this VS physical Reason Comments New Pain Fracture Reason Comments Fracture Reason Comments Schedule Surgery Reason Comments Physical Reason Comments Pharmacy notified Reason Comments Smoking Cessation Care Teams (unrecognized sec tion and content) Biometrics Analyst Relationship Specialty Start Date End Date Miladis Nassar MD [address] [place], [place] [address] PCP - General Family Practice 04/17/17 Biometrics Analyst Relationship Specialty Start Date End Date Miladis Nassar MD [address] [place], [place] [id number] PCP - General Family Medicine 04/17/17 Biometrics Analyst Relationship Specialty Start Date End Date Miladis Nassar MD [address] [place], [place] [id number] PCP - General Family Medicine 04/17/17 Biometrics Analyst Relationship Specialty Start Date End Date Miladis Nassar MD [address] [place], [place] [id number] PCP - General Family Medicine 04/17/17 Team Status: Active Member Role Status Dates Dr. Charly Nassar MD Family Provider Active Dr. Charly Nassar MD Primary Care Provider Acti ve Team Status: Inactive Member Role Status Dates Dr. Charly Nassar MD Primary Care Provider Acti ve Dr. Roger Foster DO Emergency Provider Active Team Status: Inactive Member Role Status Dates Dr. Charly Nassar MD Primary Care Provider Acti ve Dr. Roger Foster DO Attending Provider, Emergency Provider Active Team Status: Inactive Member Role Status Dates Dr. Charly Nassar MD Primary Care Provider Acti ve Dr. Rishi Rocha DO Emergency Provider Active Biometrics Analyst Relationship Specialty Start Date End Date Miladis Nassar MD [address] [place] [address] PCP - General Family Medicine 04/17/17 Biometrics Analyst Relationship Specialty Start Date End Date Miladis Nassar MD [address] [place] [address] PCP - General Family Medicine 04/17/17 Biometrics Analyst Relationship Specialty Start Date End Date Miladis Nassar MD [address] [place] [address] PCP - General Family Medicine 04/17/17 Biometrics Analyst Relationship Specialty Start Date End Date Miladis Nassar MD [address] [place] [address] PCP - General Family Medicine 04/17/17 Biometrics Analyst Relationship Specialty Start Date End Date Miladis Nassar MD [address] [place] [address] PCP - General Family Medicine 04/17/17 Biometrics Analyst Relationship Specialty Start Date End Date Miladis Nassar MD [address] [place] [address] PCP - General Family Medicine 04/17/17 Biometrics Analyst Relationship Specialty Start Date End Date Miladis Nassar MD [address] [place] [address] PCP - General Family Medicine 04/17/17 Biometrics Analyst Relationship Specialty Start Date End Date Miladis Nassar MD [address] [place] [address] PCP - General Family Medicine 04/17/17 Team Status: Inactive Member Role Status Dates Dr. Charly Nassar MD Primary Care Provider Acti ve Dr. Devyn Ramos MD Emergency Provider Active Team Status: Inactive Member Role Status Dates Dr. Charly Nassar MD Primary Care Provider Acti ve Dr. Rishi Rocha DO Attending Provider, Emergency P david Active Biometrics Analyst Relationship Specialty Start Date End Date Miladis Nassar MD [address] [place] [address] PCP - General Family Medicine 04/17/17 Biometrics Analyst Relationship Specialty Start Date End Date Miladis Nassar MD [address] [place] [address] PCP - General Family Medicine 04/17/17 Biometrics Analyst Relationship Specialty Start Date End Date Miladis Nassar MD [address] [place] [address] PCP - General Family Medicine 04/17/17 Biometrics Analyst Relationship Specialty Start Date End Date Miladis Nassar MD [address] [place] [address] PCP - General Family Medicine 04/17/17 Biometrics Analyst Relationship Specialty Start Date End Date Miladis Nassar MD [address] [place] [address] PCP - General Family Medicine 04/17/17 Team Status: Inactive Member Role Status Dates Dr. Charly Nassar MD Primary Care Provider Acti ve Dr. Devyn Ramos MD Attending Provider, Emergency Provi marina Active Team Status: Inactive Member Role Status Dates Dr. Charly Nassar MD Primary Care Provider Acti ve Dr. Elias Quezada MD Emergency Provider Active Team Status: Inactive Member Role Status Dates Dr. Charly Nassar MD Primary Care Provider Acti ve Dr. Demetrio Andes , DO Attending Provider, Emergency Pr ovider Active Biometrics Analyst Relationship Specialty Start Date End Date Miladis Nassar MD [address] [place], [place] [address] PCP - General Family Medicine 04/17/17 Biometrics Analyst Relationship Specialty Start Date End Date Miladis Nassar MD [address] [place], [place] [address] PCP - General Family Medicine 04/17/17 Goals (unrecognized section and content) Goals may be documented in a n alternate sectionGoals may be documented in an alternate sectionGoals may be documented in an alternate sectionGoals may be documented in an alternate section FOR RECORDS PERTAINING TO PATIENTS WHO ARE [...] BE BASED ON THE PRIMARY CLINICAL RECORDS. [email or web address] provides no warranty or guarantee of the accuracy or completeness of information in this document.
[2025-03-20] MEDS: Lorazepam 2 MG/ML WCH Syringe 1 MG IV (21:37)
[2025-03-20 21:41] VITALS: BP 112/68; PULSE 74; RESP 18; O2SAT 100
[2025-03-20 21:42] VITALS: BP 112/68; PULSE 74; RESP 18; TEMP 36.7; O2SAT 100
--- OUTSIDE RECORDS SUMMARY | 2025-03-20 21:59 | XMS RPT_ITS | CCD ---
Author Organization [facility] Inform ion [facility] PULL OVER [facility] Care Team Providers Care Dual Rate Supervisor Name Role Phone Miladis Nassar MD Primary [...] Care Unavailab le JOHANNY STAUFFER Attending Unavailable AGBRIEL BARRETT Admitting Unavailable GABRIEL BARRETT Attending Unavailable [...] HYDROcodone; Translations: [HYDROCODONE] Drug Allergy 5 Vomiting [facility] (20 sources) Sertraline; Translations: [SERTRALINE HCL] Drug Allergy 9 GI Upset [facility] Work Phone: (5 sources) Acetaminophen; Translations: [ACETAMINOPHEN] Drug Allergy 3 Vomiting (20 sources) Wheat gluten extract; Translations: [GLUTEN] Drug Allergy 3 Swelling, Vomiting (1 source) Acetaminophen Drug Allergy [facility] Repository (1 source) HYDROmorphone Drug Allergy [facility] Repository (1 source) Acetaminophen Drug Allergy 4 Repository (1 source) Gluten Drug allergy (disorder) 4 Repository (1 source) HYDROcodone Drug Allergy 4 Repository Medications Current Medications Medication Drug Class(es) [...] Comment on above: Take 2 tablets by [facility] every 8 hours as [...] times a day. Take 1 tablet by [facility] two times a day. cephalexin [...] Comment on above: Take 1 capsule by [facility] three times a day [...] on above: Take 1 capsule by [facility] three times daily as needed for [...] 1 mg oral capsule (20 sources) alpha-Adrenergic Wenyd Start: 01-26-2023 End: 07-11-2024 prazosin (MINIPRESS) 1 [...] Comment on above: Take 1 tablet by [facility] twice daily. FLUoxetine 20 mg oral capsule (15 sources) Serotonin Reuptake Inhibitor Start: 08-24-2018 End: 07-10-2023 take 1 capsule by mouth once daily FLUoxetine (PROZAC) 20 mg capsule Indications: Anxiety with depression Take 1 capsule by mouth once daily. 30 capsule 2 08/24/2018 07/10/2023 Discontinued (Course of therapy completed) Comment on above: Take 1 capsule by [facility] once daily. 120 actuat [...] (Unsp spec) Not detected Normal Not detected [facility] Comment on above: Order Comment: Speci men Type: SWABOrdering Facility: [facility] Address: [address] [place] [address] Performed By: #### 3 6902-5, TRVAMP ####[facility] LABCLIA [id number] [place] [address] [place] N. gonorrhoeae rRNA GABRIEL+probe Ql (Unsp spec) Not detected Normal Not detected [facility] Comment on above: Order Comment: Speci men Type: SWABOrdering Facility: [facility] Address: [address] [place] [address] Performed By: #### 3 6902-5, TRVAMP ####[facility] LABCLIA [id number] [place] [address] [place] CNOVon 07-11-2024 CNOV Office Visit (OBGYWM ) KO GALINDO ([id number]) 1995 F Date Time Provider Department 12/2/24 8:15 AM ALEXUS ALVAREZ During your visit today, we recorded the following information about you: Blood pressure Weight Height Last Period 58.1 kg 1.6 m 06/13/24 Alexus Alvarez APRN.CNP 07/11/2024 8:49 AM Signed Paginator offered: Patient declinesMiriam Connell is a 29 [...] L1 SAB0 IAB0 Ectopic0 Multiple0 Live Births1 Music Grapher History LMP: 06/19/2023 (Approximate), Having periods Age at Menarche: Age at First : Age at Menopause: Music Grapher History Comments: Sexual Activity: Yes; Male Contraception: None PAST MEDICAL HISTORY Diagnosis Date Anxiety Bipolar disorder ([facility]) counseling center Broken leg 08/2014 [...] discussed with the Patient or Patient's Authorized Mechanical Product Design Engineer. As applicable, any other physician, advance practice provider, medical student, or other health professional student that will be observing or involved in the sensitive examination for educational or training purposes was discussed with the Patient or Authorized Mechanical Product Design Engineer. The Patient or Authorized Mechanical Product Design Engineer has agreed to proceed with the sensitive [...] external genitalia normal, normal Bartholin's glands, urethra, Gay's glands, no vulvar lesions, no cervical lesions, [...] would accep (more content not included)... Normal [facility] HBV surface Ag Ser Qlon HBV surface Ag Ql (S) Negative Normal Negative [facility] Comment on above: Order Comment: Speci men Type: BLOOD SPECIMENOrdering Facility: [facility] Address: [address] [place] [address] Performed By: #### 7 3752-8, 22142-9, 5195-3 ####[facility] LABCLIA [id number] [place] [address] [place] HCV Ab Ser Qlon 07-11-2024 HCV Ab Ql (S) Negative Normal Negative [facility] Comment on above: Order Comment: Speci men Type: BLOOD SPECIMENOrdering Facility: [facility] Address: [address] [place] [address] Result Comment: The result suggests no evidence of active infection with Hepatitis C virus. Should recent infection be suspected, repeat testing may be considered 4-6 weeks after this draw. Performed By: #### 1 6128-1 ####[facility] LABCLIA [id number] [place] [address] [place] HIV 1+2 Ab IA Qlon HIV 1 and 2 Ab IA.rapid Nom (S/P/Bld) Normal [facility] Comment on above: Order Comment: Speci men Type: BLOOD SPECIMENOrdering Facility: [facility] Address: [address] [place] [address] Result Comment: Test not indicated. Performed By: #### 7 3752-8, 04150-4, 5195-3 ####[facility] LABIA [id number] [place] [address] [place] HIV 1+2 Ab+HIV1 p24 Ag IA Ql Non-Reactive Normal Nonreactive [facility] Comment on above: Order Comment: Speci men Type: BLOOD SPECIMENOrdering Facility: [facility] Address: [address] [place] [address] Performed By: #### 7 3752-8, 36571-0, 5195-3 ####[facility] [id number] [place] [address] [place] HIV immunoassay testing algorithm interpretation (S/P/Bld) [Interp] Normal [facility] Comment on above: Order Comment: Speci men Type: BLOOD SPECIMENOrdering Facility: [facility] Address: [address] [place] [address] Result Comment: No e vidence of HIV-1 or HIV-2 infection. Should recent infection be suspected, repeat testing may be considered 2-3 weeks after this draw. [place] Rev. Code 3701.243(E): This information has been [...] or diagnoses. Performed By: #### 7 3752-8, 78910-1, 5195-3 ####[facility] [id number] [place] [address] [place] Reagin and Treponema pallidu m IgG and IgM [Interp]on 07-11-2024 T. pallidum IgG+IgM IA Ql (S) Non-Reactive Normal Nonreactive [facility] Comment on above: Order Comment: Speci men Type: BLOOD SPECIMENOrdering Facility: [facility] Address: [address] [place] [address] Performed By: #### 7 3752-8, 86696-1, 5195-3 ####[facility] [id number] [place] [id number] [place] Reagin+T pallidum IgG+IgM Se rPl-Impon 07-11-2024 Reagin and Treponema pallidum IgG and IgM [Interp] Cannot exclude recent Treponemal infection if specimen collected within 7-10 days after appearance of suspect lesions or 2-3 weeks after an exposure. Clinical correlation is required. Normal [facility] Comment on above: Order Comment: Speci men Type: BLOOD SPECIMENOrdering Facility: [facility] Address: [address] [place] [address] Performed By: #### 7 3752-8, 52715-1, 5195-3 ####[facility] LABCLIA [id number] [address] [place] TRICHOMONAS VAGINALIS NAATon 07-11-2024 T. vaginalis DNA GABRIEL+probe Ql (Unsp spec) Not detected Normal Not detected [facility] Comment on above: Order Comment: Speci men Type: SWABOrdering Facility: [facility] Address: [address] [place] [address] Performed By: #### 3 6902-5, TRVAMP ####[facility] LABCLIA [id number] [address] [place] CNPNon 10-19-2023 CNPN Telephone (WIQ) KO GALINDO ([id number]) 1995 F Date Time Provider Department 10/19/23 YEHUDA COTTON WIQ During your visit today, we recorded the following information about you: [facility]/2023 8:43 AM Signed Smoking Cessation Navigation Outcome of contact: Left Message Comments: A voicemail has been left for this patient regarding Tobacco Cessation support options. If this patient has any further questions they can email us at or call us at [phone]. [employer] Supervisor/Smoking Cessation Navigator: [facility] Allergies [...] Encounter Status:Closed by YEHUDA COTTON on 10/19/23 [facility] CNOVon 10-13-2023 CNOV Office Visit (ELTONWS ) KO GALINDO ([id number]) 1995 F Date Time Provider Department 10/13/23 7:20 AM JOHANNY STAUFFER During your visit today, we recorded the following information about you: Pulse Respiration Blood pressure Weight 72/minute 18/minute 108/72 57.7 kg Height 1.615 m Johanny Stauffer APRN.FIELD SERVICE MANAGER 10/13/2023 9:04 AM Addendum 10/13/2023 Patient presents [...] MEDICAL HISTORY Diagnosis Date Anxiety Bipolar disorder ([facility]) counseling center Broken leg 08/2014 [...] No history of dysuria, frequency or incontinence ARMORER TECHNICIAN: Negative for abnormal vaginal bleeding, abnormal vaginal [...] wheezes, rhonc (more content not included)... Normal [facility] Racheal 10-13-2023 CNPN Telephone (FAMPWS) KO GALINDO ([id number]) 1995 F Date Time Provider Department 10/13/23 MILADIS NASSAR During your visit today, we recorded the following information about you: Michelle Sommer LPN 10/13/2023 8:33 AM Signed Called [facility] and left a message to cancel prescription Buspirone 7.5 mg because pt was getting [facility] pharmacy. Michelle Sommer LPN Allergies [...] Status:Closed by MICHELLE SOMMER on 10/13/23 Normal [facility] CNOVon 09-08-2023 CNOV Office Visit (FAMPWS ) KO GALINDO ([id number]) 1995 F Date Time Provider Department 09/08/23 [...] for ER follow up. Patient evaluated at [facility] ED on 09/07 for copmlaint of lump on her left lower rib cage. Had apparently been evaluated at [facility] ER on 09/[address] [...] symptoms are worsening. Reviewed lab results from [facility] on 09/05 which showed low [...] MEDICAL HISTORY Diagnosis Date Anxiety Bipolar disorder ([facility]) counseling center Broken leg 08/2014 [...] BP 126/88 (more content not included)... Normal [facility] ([id number]) 1995 F Date Time Provider Department 09/08/23 MILADIS NASSAR During your visit today, we recorded the following information about you: Jessie Kelly LPN 09/08/2023 7:08 PM Signed ----- Message from iMladis Nassar MD sent at 09/08/2023 6:54 PM [...] Status:Closed by JESSIE KELLY on 09/08/23 Normal [facility] POTASSIUM BLDon 09-08-2023 Potassium [Moles/Vol] 4.2 mmol/L Normal 3.7-5.1 [facility] Comment on above: Order Comment: Specalec aguilar Type: BLOOD SPECIMENOrdering Facility: [facility] Address: [address] [place] [address] Performed By: #### 3 016-3, K1 ####[facility] LABIA [id number] [place] [address] [place] TSH SerPl-aCncon 09-08-2023 TSH Qn 0.414 m[IU]/L Normal 0.270-4.200 [facility] Comment on above: Order Comment: Speci jeff Type: BLOOD SPECIMENOrdering Facility: [facility] Address: [address] [place] [address] Result Comment: If t he patient is , TSH reference range varies by gestational period: First Trimester (weeks 9-12): 0.180-2.990 mIU/L Second Trimester: 0.110-3.980 mIU/L Third Trimester: 0.480-4.710 mIU/L Dieudonne Woods et al. A Practical Approach for the Verifications and Determination of Site- and Trimester-Specific Reference Intervals for Thyroid Function tests in . Thyroid, 2019:29:3:412-420. Alejo E, et al. 2017 Guidelines of the [place] Thyroid Association for the Diagnosis and Management of Thyroid Disease during and the . Thyroid, 2017:27:3:315-389. Performed By: #### 3 016-3, K1 ####[facility] LABIA [id number] [address] [place] CNPKarly 09-07-2023 CNPN Telephone (FAMPWS) MATEOKO ([id number]) 1995 F Date Time Provider Department 09/07/23 MILADIS NASSAR During your visit today, we recorded the following information about you: Ann Ballard LPN 09/07/2023 1:16 PM Signed Patient calling she is scheduled for her physical for tomorrow morning with PCP at 820 am. Right now she is on her way to [facility] ER for lump on her left lower rib cage that is about size of small baseball and painful. She had gone to [place] ER not sure what date for the [...] Fully Assessed Reason for Visit: Patient Question [0867] Prescriptions as of 09/07/2023 - busPIRone (BUSPAR) [...] Status:Closed by CASIE BOONE on 09/07/23 Normal [facility] Emergency Department Summary on 09-07-2023 Emergency Department Summary [facility] Medical Records Department [address] [place] [address] Emergency Department Summary 09/07/23 MR#: [id number] Acct: [id number] Name: KO GALINDO Rep #: [id number] : 1995 28 From: Elias Quezada MD [...] lower rib cage. She was seen at [facility] ER on Thursday and a CAT scan of the workup. She said they could not find anything specific. She denies any fall injury or trauma. She said it is uncomfortable. Denies any other complaints. Prior similar symptoms: No Recent Illness/[facility]ospital[facility]atio n[facility] Medical History Bipolar disorder Home Medications benztropine [...] normal respirat (more content not included)... Normal CBC + DIFFon 09-06-2023 Baso # 0.10 x10EE3/UL Normal 0.00 - 0.10 [facility] Comment on above: Performed By: #### 2 88726 #### [facility],[address] [place] [address] Basophils/100 WBC (Bld) 0.6 % Normal 0.0 - 2.0 [facility] Comment on above: Performed By: #### 2 92273 #### [facility],[address] [place] [address] CBC + DIFF Normal [facility] Comment on above: Result Comment: CBC- COMPLETE BLOOD COUNT Performed By: #### 2 44388 #### [facility],[address] [place] [address] EO # 0.20 x10EE3/UL Normal 0.00 - 0.50 [facility] Comment on above: Performed By: #### 2 58564 #### [facility],[address] [place], [place] [id number] Eosinophils/100 WBC (Bld) 2.0 % Normal 0.0 - 7.0 [facility] Comment on above: Performed By: #### 2 35674 #### [place] [address] Erythrocyte distribution width (RBC) [Ratio] 13.1 % Normal 12.0 - 15.6 [facility] Comment on above: Performed By: #### 2 27465 #### [facility],[address] [place] [address] Hematocrit (Bld) [Volume fraction] 40.3 % Normal 34.0 - 46.0 [facility] Comment on above: Performed By: #### 2 38462 #### [facility],[address] [place], [place] [address] Hemoglobin (Bld) [Mass/Vol] 13.5 g/dL Normal 12.0 - 16.0 [facility] Comment on above: Performed By: #### 2 38411 #### [facility],[address] [place] [address] Lymph # 2.10 x10EE3/UL Normal 0.80 - 2.80 [facility] Comment on above: Performed By: #### 2 95306 #### [facility],[address] [place] [address] Lymphocytes/100 WBC (Bld) 24.7 % Normal 20.0 - 45.0 [facility] Comment on above: Performed By: #### 2 42112 #### [facility],[address] [place] [address] MANUAL DIFF N/A Normal [facility] Comment on above: Performed By: #### 2 95039 #### [facility],[address] [place] [address]707 MCH (RBC) [Entitic mass] 33 pg Normal 27 - 33 [facility] Comment on above: Performed By: #### 2 95348 #### [facility],[address] [place] [address] 10590 MCHC 34 X10 3 Normal 32 - 36 [facility] Comment on above: Performed By: #### 2 39366 #### [facility],[address] [place] [address] 94055 MCV (RBC) [Entitic vol] 98 fL Normal 80 - 99 J [facility] Comment on above: Performed By: #### 2 03769 #### [facility],[address] [place], [place] [address] Schuyler # 0.60 x10EE3/UL Normal 0.20 - 1.00 [facility] Comment on above: Performed By: #### 2 86054 #### [facility],[address] [place] [address]1966 MONOS % 6.4 % Normal 0.0 - 10.0 [facility] Comment on above: Performed By: #### 2 03274 #### [facility],[address] [place] [address] Morphology Mihir (Bld) [Interp] N/A Normal [facility] Comment on above: Result Comment: {CD] Performed By: #### 2 59384 #### [facility],[address] [place] [address] Neut # 5.70 x10EE3/UL Normal 1.50 - 7.10 [facility] Comment on above: Performed By: #### 2 62449 #### [facility],[address] [place] [address] Neutrophils/100 WBC (Bld) 66.3 % Normal 46.0 - 76.0 [facility] Comment on above: Performed By: #### 2 05922 #### [facility],[address] [place] [address] PLATELET 305 x10EE3/UL Normal 150 - 450 [facility] Comment on above: Performed By: #### 2 03032 #### [facility],[address] [place] [address] Platelet mean volume (Bld) [Entitic vol] 8.3 fL Normal 6.6 - 10.5 [facility] Comment on above: Result Comment: AUTO MATED DIFFERENTIAL Performed By: #### 2 09733 #### [facility],[address] [place] [address] RBC 4.13 x 10EE6/UL Normal 4.10 - 5.30 [facility] Comment on above: Performed By: #### 2 44067 #### [facility],[address] [place] [address] 34850 WBC 8.6 x 10EE3/UL Normal 4.5 - 10.8 [facility] Comment on above: Performed By: #### 2 68820 #### [facility],[address] [place] [address]29 CMP with eGFRon 09-06-2023 AGE 28 years Normal [facility] Comment on above: Performed By: #### 2 17236 #### [facility],[address] [place] [address] 66939 Albumin [Mass/Vol] 3.9 g/dL Normal 3.4 - 5.0 [facility] Comment on above: Performed By: #### 2 22246 #### [facility],[address] [place] [address] 69877 Albumin/Globulin [Mass ratio] 1.0 {ratio} Normal 0.9 - 1.6 [facility] Comment on above: Performed By: #### 2 91558 #### [facility],[address] [place] [address] 74299 ALK PHOS 55 U/L Normal 46 - 116 [facility] Comment on above: Performed By: #### 2 91502 #### [facility],[address] [place] [address] 92740 ALT [Catalytic activity/Vol] 19 U/L Normal 14 - 59 [facility] Comment on above: Performed By: #### 2 22965 #### [facility],[address] [place] [address] 41142 Anion gap [Moles/Vol] 14 mmol/L Normal 10 - 20 [facility] Comment on above: Performed By: #### 2 42901 #### [facility],[address] [place] [address] 55683 AST [Catalytic activity/Vol] 7 U/L Low 13 - 39 [facility] Comment on above: Performed By: #### 2 55463 #### [facility],[address] [place] [address] 98663 B/C RATIO 18 ratio Normal 0 - 30 [facility] Comment on above: Performed By: #### 2 01570 #### [facility],[address] [place] [address] 66526 Bilirubin [Mass/Vol] 1.0 mg/dL Normal 0.2 - 1.0 [facility] Comment on above: Performed By: #### 2 32058 #### [facility],[address] [place] [address] 05859 Calcium [Mass/Vol] 9.4 mg/dL Normal 8.5 - 10.1 [facility] Comment on above: Performed By: #### 2 15685 #### [facility],[address] [place] [address] 82465 Chloride [Moles/Vol] 101 mmol/L Normal 98 - 107 [facility] Comment on above: Performed By: #### 2 83988 #### [facility],[address] [place] [address] 97229 CMP with eGFR Normal [facility] Comment on above: Result Comment: COMP REHENSIVE METABOLIC PANEL Performed By: #### 2 17510 #### [facility],[address] [place] [address] 99362 CO2 [Moles/Vol] 27.4 mmol/L Normal 21.0 - 32.0 [facility] Comment on above: Performed By: #### 2 08613 #### [facility],[address] [place] [address] 80255 Creatinine [Mass/Vol] 0.80 mg/dL Normal 0.55 - 1.02 [facility] Comment on above: Performed By: #### 2 62675 #### [facility],[address] [place] [address] 37766 GFR/1.73 sq M.predicted among non-blacks MDRD (S/P/Bld) [Vol rate/Area] mL/min/{1.73_m2} Normal 60 - 999 [facility] Comment on above: Performed By: #### 2 03490 #### [facility],[address] [place] [address] 12942 Result Comment: ACCO RDING TO THE NATIONAL KIDNEY DISEASE EDUCATION PROGRAM(NKDE), A NORMAL eGFR IS A VALUE GREATER THAN OR EQUAL TO 60 ML/MIN/1.73 SQ METERS. CHRONIC KIDNEY DISEASE: <60mL/MIN/1.73 SQ METERS KIDNEY FAILURE: <15mL/MIN/1.73 SQ METERS THIS TEST SHOULD ONLY BE USED FOR PATIENTS 18 YEARS OF AGE AND OLDER. Globulin (S) [Mass/Vol] 3.8 g/dL Normal 1.5 - 3.8 [facility] Comment on above: Performed By: #### 2 35475 #### [address] [address] Glucose [Mass/Vol] 86 mg/dL Normal 74 - 106 [facility] Comment on above: Performed By: #### 2 80981 #### [address] [address] Potassium [Moles/Vol] 3.2 mmol/L Low 3.5 - 5.1 [facility] Comment on above: Performed By: #### 2 05262 #### [facility],[address] [place] [address] 47339 Protein [Mass/Vol] 7.7 g/dL Normal 6.4 - 8.2 [facility] Comment on above: Performed By: #### 2 01600 #### [address] [address] Sodium [Moles/Vol] 139 mmol/L Normal 136 - 145 [facility] Comment on above: Performed By: #### 2 82689 #### [address] [address] Urea nitrogen [Mass/Vol] 14 mg/dL Normal 7 - 18 [facility] Comment on above: Performed By: #### 2 16441 #### [facility],[address] [place] [address] CHEST/ABD/PELVIS C+on CT CHEST/ABD/PELVIS C+ [address] [address] Patient: KO GALINDO Phone#: : 1995 Age: 28 Gender: F Pt. Type: ER Account: [id number] Location: [facility] Ordering: DR. SONIA PATEL Exam Date: 09/05/2023/23:48 Family Phys: MILADIS NASSAR Charge Code: 246432 Physician: [place] Order #: [id number] Dose#: 14.10 PROCEDURE: CT CHEST/ABD/PELVIS W COMPARISON: [...] 28 Gender: F Pt. Type: ER Account: [id number] Location: 2 Ordering: DR. SONIA PATEL Exam Date: 09/05/202323:48 Family Phys: MILADIS LANDAVERDEABBY Charge Code: 765000 Physician: [place] Order #: [id number] Dose#: 14.10 URINARY BLADDER: Normal. No visible [...] on 09/06/2023 at 13:23 Approved by: Meagan Snyedr MD on 09/06/2023 at 13:31 Normal [facility] SERUM QUALon 09-06 EXTERNAL QC DONE? YES Normal [facility] Comment on above: Performed By: #### 2 77765 #### [facility],[address] [place] [address] INTERNAL QC PASS Normal [facility] Comment on above: Performed By: #### 2 82011 #### [facility],[address] [place] [address] SER Negative Normal NEGATIVE [facility] Comment on above: Performed By: #### 2 04647 #### [facility],[address] [place] [address] CNTHERAPYon 08-21-2023 CNTHERAPY OT/PT/Speech Visit (UNOTHR) MATEOKO Avinash ([id number]) 1995 F Date Time Provider Department 08/21/23 3:15 PM MICHELLE ZIMMERMAN Date Time Provider Department Grant 08/21/2023 3:15 PM [id number], LAURIE YUSEF COUNTS INCLUDE 234 BEDS AT [...] every 6 hours as needed for Nausea/Vomiting. [facility] 08-12-2023 [facility] Office Visit (PLAFVW ) KO GALINDO ([id number]) 1995 F Date Time Provider Department 08/12/23 10:00 AM KAMALJIT GORDON PLAW During your visit today, we recorded the following information about you: Kamaljit Gordon PA-C 08/12/2023 10:58 AM Signed Ko Galindo underwent the following procedure on 07/28/23 1) Right fifth metacarpal open reduction internal fixation CPT 41230 The patient returns today for follow-up. The [...] Fracture reduction was maintained. Images posted to [facility] ASSESSMENT: Closed displaced fracture of [...] Visit Diagnosis:Post-operati ve state [Z98.890] Order(s):CONSULT TO PHILOSOPHY INSTRUCTOR [[id number]] Order #: [id number]: 1 FUTURE XR HAND GENERAL 3V PA/LAT/OBL RIGHT [[id number]] Order #: [id number] FUTURE Prescriptions as of 08/12/2023 - busPIRone [...] FOLLOW UP VISIT RELATED TO ORIGINAL PX [66274] Encounter Status:Closed by KAMALJIT GORDON on 08/12/23 [facility] ANES POSTPROC EVALon 023 ANES POSTPROC EVAL HNO ID: [id number] Author: Marj Dover MD Service: ? Author Type: Anesthesiologist Type: Anesthesia Postprocedure Evaluation Filed: 07/28/2023 6:48 PM Note Text: POST ANESTHESIA EVALUATION NOTE : 1995 Procedure Summary Date: 07/28/23 Room / Location: [address] [facility] Anesthesia Start: 1610 Anesthesia [...] July 28, 2023 TIME: 6:47 PM CSN: [id number] [facility] ANES PRE-OPon 07-28-2023 ANES PRE-OP HNO ID: [id number] Author: Ashly Gage MD Service: ? Author [...] MANIPULATION SINGLE (Right: Arm below elbow) Location: [place] [address] / [facility] Surgeons: Gabriel Barrett MD Estimated body mass [...] a current smoker. NPO Status: adequate Beta Wendy Administration of chronic beta wendy medication not planned. Monitoring Plan Monitoring plan: standard ASA. Post Procedure Analgesic Plan Postoperative analgesic plan: parenteral or oral opioids. Informed Consent Anesthetic risks, benefits, alternatives, personnel and consent discussed: yes. Patient / Responsible Libertarian agrees to proceed: yes Patient / Surrogate [...] July 28, 2023 TIME: 4:11 PM CSN: [id number] [facility] BRIEF OP NOTon 07-28-2023 BRIEF OP NOT HNO ID: [id number] Author: Kamaljit Gordon PA-C Service: ? Author Type: Physician Straight Truck Driver Type: Brief Op Note Filed: 07/28/2023 5:27 PM Note Text: BRIEF OPERATIVE / PROCEDURE NOTE LOG ID: [id number] SURGERY/PROCEDURE DATE: 07/28/2023 INCISION/PROCEDURE START TIME: 4:50 PM INCISION CLOSE/PROCEDURE END TIME: 5:22 PM SURGEON(S)/PROCEDURALI ST(S) AND LEVEL VIAL MARKER(S): Surgeon(s) and Role: * Gabriel Barrett MD - Primary No Additional Staff SURGERY/PROCEDURE(S): open reduction and internal fixation of the right small finger ANESTHESIA: [facility] - Extremity Upper FINDINGS: as expected ESTIMATED BLOOD LOSS: 0 mls SPECIMENS: None COMPLICATIONS: CLOSURE TECHNIQUE: Primary PRE-OP/PRE-PROCEDURE DIAGNOSIS: right 5th metacarpal displaced shaft fracture POST-OP/POST-PROCEDURE DIAGNOSIS: Same as Preop SIGNATURE: Kmaaljit Gordon PA-C PATIENT NAME: Ko Galindo DATE: July 28, 2023 TIME: 5:26 PM [facility] OPERATIVE NOon 07-28-2023 OPERATIVE NO HNO ID: [id number] Author: Gabriel Barrett MD Service: Hand Surgery Author Type: Physician Type: Operative Report Filed: 08/12/2023 10:43 AM Note Text: OPERATIVE/PROCEDURE REPORT LOG ID: [id number] SURGERY/PROCEDURE DATE: 07/28/2023 INCISION/PROCEDURE START TIME: 4:50 PM INCISION CLOSE/PROCEDURE END TIME: 5:22 PM SURGEON(S)/PROCEDURALI ST(S) AND LEVEL VIAL MARKER(S): Surgeon(s) and Role: * Gabriel Barrett MD - Primary No Additional Staff Surgeon(s) and Role: * Gabriel Barrett MD - Primary * SOLE Frankel, DTB - Assisting SURGERY/PROCEDURE(S): 1) Right fifth metacarpal open reduction internal fixation CPT 50252 ANESTHESIA: Block Regional - Extremity Upper and [...] metacarpal head region, and a guidewire from [employer] Innate screw (4.5mm) set was used, and [...] Implant Name Type Inv. Item Serial No. Roll Panner Lot No. LRB No. Used Action Model No. NAIL INNATE 4.5MM (more content not included)... Normal [facility] CNOVon 07-24-2023 CNOV Office Visit (OTMBHT ) MATEOKO ([id number]) 1995 F Date Time Provider Department 07/24/23 8:45 AM CAST TECH [facility] During your visit today, we recorded [...] right hand with routine healing, subsequent encounter [X09.936Z] Prescriptions as of 07/24/2023 - busPIRone (BUSPAR) [...] Encounter Status:Closed by CORINNE LAKE on 07/24/[address] [facility] Office Visit (COX BRANSONT ) KO GALINDO ([id number]) 1995 F Date Time Provider Department 07/24/23 8:30 AM KAMALJIT GORDON [facility] During your visit today, we recorded the [...] 6 years. Quit 08/10/2020. 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 Shoshana (more content not included)... Normal [facility] CNPNon 07-24-2023 CNPN Telephone (ORAVON) KO GALINDO ([id number]) 1995 F Date Time Provider Department 07/24/23 [...] , it is OK to leave message [phone] (home) [phone] (cell) Was an appointment scheduled: Closing statement: Janet Lau OCCA 07/24/2023 1:40 PM Signed Returned patients call. Was seen by Plastic in [facility] earlier today. According to visit notes, [...] Status:Closed by LONDON JANET on 07/24/23 [facility] PHYSICALon HISTORY PHYSICAL HNO ID: [id number] Author: Kamaljit Gordon PA-C Service: ? Author Type: Physician Straight Truck Driver Type: HANDP Filed: 07/24/2023 5:07 PM Note [...] 6 years. Quit 08/10/2020. 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 No PHYSICAL EXAMINATION: Vitals: [facility] 06/19/2023 Body Habitus:well nourished and [...] shifting of fracture CLINICAL IMPRESSION / ASSESSMENT: (F51.738A) Closed displaced fracture of shaft of fifth [...] Dan - Fully Assessed Reason for Visit: Established Patient [175] Primary Visit Diagnosis:Closed displaced fracture of shaft of fifth metacarpal bone of right hand with routine healing, subsequent encounter [S64.248D] Order(s):XR HAND GENERAL 3V PA/LAT/OBL RIGHT [[id number]] Order #: [id number] FUTURE Prescriptions as of 07/22/2023 - busPIRone [...] abnormality. - IMPRESSION: FRACTURE(S) DESCRIBED FIFTH METACARPAL Latin Professor: HANS Transcribe Date/Time: Jul 22 2023 1:07P Dictated by : NIKKY SANDRA MD This examination was interpreted and the report reviewed and electronically signed by: NIKKY SANDRA MD on Jul 22 2023 1:08PM EST [id number] Normal [facility] CNOVon 07-17-2023 CNOV Office Visit (ORAVON ) KO GALINDO ([id number]) 1995 F Date Time Provider Department 07/17/23 [...] controlled with ibuprofen. 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 Normal [facility] CNOV Office Visit (ORAVON ) KO GALINDO ([id number]) 1995 F Date Time Provider Department 07/17/23 [...] Encounter Status:Closed by JANET HURTADO on 07/17/23 [facility] XR HAND 3V PA/LAT/OBL RTon 1 09-17-2022 [...] variance. IMPRESSION: Acute angulated fifth metacarpal fracture. Latin Professor: PSCB Transcribe Date/Time: Jul 17 2023 3:02P Dictated by : PATY VERA MD This examination was interpreted and the report reviewed and electronically signed by: ADONAY CHOU MD on Jul 17 2023 3:24PM EST [id number] Normal [facility] XR HAND GENERAL 3V PA/LAT/OB L RIGHTon 07-17-2023 [facility] XR HAND RIGHT 2 VIEWSon XR HAND [...] ID: [id number] Dictated by: AMANDA HUTCHINSON on [facility] Jul 11, 2023 3:13:32 PM EST Transcribed by: AMANDA HUTCHINSON on [facility] Jul 11, 2023 3:13:32 PM EST Finalized by: AMANDA HUTCHINSON on [facility] Jul 11, 2023 3:13:32 PM EST Normal [facility] Comment on above: Order Comment: Injur [...] ID: [id number] Dictated by: DAMIAN ABRAHAM on [facility] Jul 11, 2023 2:47:17 PM EST Transcribed by: DAMIAN ABRAHAM on [facility] Jul 11, 2023 2:47:17 PM EST Finalized by: DAMIAN ABRAHAM on [facility] Jul 11, 2023 2:47:17 PM EST Normal [facility] Comment on above: Order Comment: Injur y/Trauma or Illness?:Injury/Trauma How long have you had these symptoms (acute/chronic)?:Acute Reason for exam?:pain 5th metacarpal History of cancer?:n Surgeries, chemotherapy, or radiation?:n Type of Exam?:Initial Mechanism of injury?:punched a punching bag Emergency Department Summary on 07-04-2023 Emergency Department Summary [facility] Medical Records Department [address] [place] [address] Emergency Department Summary 07/04/23 MR#: [id number] Acct: [id number] Name: KO GALINDO Rep #: [id number] : 1995 28 From: Demetrio Michaels DO [...] time with almost complete resolution of symptoms. [facility] Medical History Bipolar disorder Home Medications benztropine [...] cardiac dysf (more content not included)... Normal Absolute lymphocyte countOrd ered By: Devynradames Watkinso on 06-30-2023 Lymphocytes Auto (Unsp spec) [#/Vol] 2.40 10*3/uL 0.83-4.51 Basophil percentageOrdered B y: Devynradames Ramos on 06-30-2023 Basophils/100 WBC (Bld) 0.8 % 0-1 [facility] Eosinophils/100 WBC (Bld) 1.0 % 0-5 Neutrophils (Bld) [#/Vol] 4.4 10*3/uL 2.0-7.7 Neutrophils/100 WBC (Bld) 60.1 % 47-70 WBC (Bld) [#/Vol] 7.3 10*3/uL 4.4-11.0 [facility] Blood erythrocytes count (nu mber/volume)Ordered By: Devynradames Ramos on 06-30-2023 RBC (Bld) [#/Vol] 4.20 10*6/uL 4.2-5.4 [facility] Blood hemoglobin measurement (mass/volume)Ordered By: Devynradames Ramos on 06-30-2023 Hemoglobin (Bld) [Mass/Vol] 13.2 g/dL 12.0-15.0 Blood lymphocytes/100 leukoc ytesOrdered By: Devynradames Ramos on 06-30-2023 Lymphocytes/100 WBC (Bld) 33.0 % 19-41 Blood monocytes/100 leukocyt esOrdered By: Devynradames Ramos on 06-30-2023 Monocytes/100 WBC (Bld) 4.8 % 0-10 [facility] Blood platelet mean volumeOr dered By: Devynradames Ramos on 06-30-2023 Platelet mean volume (Bld) [Entitic vol] 10.3 fL 6.2-12.0 CBC W/Diff, Automatedon 06-11 Absolute Lymph 2.40 X10 3/uL Normal 0.83-4.51 Comment on above: Performed By: #### L 100.0100 #### [address] [place], [address] Absolute Neut 4.4 X10 3/uL Normal 2.0-7.7 Comment on above: Performed By: #### L 100.0100 #### [address] [place], [address] Basophils/100 WBC (Bld) 0.8 % Normal 0-1 [facility] Comment on above: Performed By: #### L 100.0100 #### [address] [place], [address] Eosinophils/100 WBC (Bld) 1.0 % Normal 0-5 Comment on above: Performed By: #### L 100.0100 #### [address] [place], [address] Erythrocyte distribution width (RBC) [Ratio] 12.8 % Normal 11.6-14.6 Comment on above: Performed By: #### L 100.0100 #### [address] [place], [address] Hematocrit (Bld) [Volume fraction] 39.6 % Normal 37-47 Comment on above: Performed By: #### L 100.0100 #### [address] [place], [address] Hemoglobin (Bld) [Mass/Vol] 13.2 g/dL Normal 12.0-15.0 Comment on above: Performed By: #### L 100.0100 #### [address] [place], [address] IG% 0.300 Normal 0.0-0.9 Comment on above: Result Comment: IG% - Immature Granulocytes (promyelocytes, myelocytes and metamyelocytes) > 1% indicates that a LEFT SHIFT is Present. Performed By: #### L 100.0100 #### [address] [place], [address] Lymphocytes/100 WBC (Bld) 33.0 % Normal 19-41 Comment on above: Performed By: #### L 100.0100 #### [address] [place], [address] MCH (RBC) [Entitic mass] 31.4 pg Normal 27.0-32.0 Comment on above: Performed By: #### L 100.0100 #### [address] [place], [address] MCHC (RBC) [Mass/Vol] 33.3 g/dL Normal 32-36 [facility] Comment on above: Performed By: #### L 100.0100 #### [address] [place], [address] MCV (RBC) [Entitic vol] 94.3 fL Normal 81-99 [facility] Comment on above: Performed By: #### L 100.0100 #### [address] [place], [address] Monocytes/100 WBC (Bld) 4.8 % Normal 0-10 [facility] Comment on above: Performed By: #### L 100.0100 #### [address] [place], [address] Neutrophils/100 WBC (Bld) 60.1 % Normal 47-70 Comment on above: Performed By: #### L 100.0100 #### [address] [place], [address] Nucleated RBC (Bld) [#/Vol] 0 10*3/uL Normal 0-5 Comment on above: Performed By: #### L 100.0100 #### [address] [place], [address] Platelet mean volume (Bld) [Entitic vol] 10.3 fL Normal 6.2-12.0 Comment on above: Performed By: #### L 100.0100 #### [address] [place], [address] Platelets (Bld) [#/Vol] 321 10*3/uL Normal 150-450 Comment on above: Performed By: #### L 100.0100 #### [address] [place], [address] RBC (Bld) [#/Vol] 4.20 10*6/uL Normal 4.2-5.4 [facility] Comment on above: Performed By: #### L 100.0100 #### [address] [place], [address] RDW SD 44.5 fl High 35.1-43.9 Comment on above: Performed By: #### L 100.0100 #### [address] [place], [address] WBC (Bld) [#/Vol] 7.3 10*3/uL Normal 4.4-11.0 [facility] Comment on above: Performed By: #### L 100.0100 #### [address] [place], [address] Chest PA and Lateralon 06-30 Chest PA and Lateral [facility] Imaging Services [address] [place] [address] Chest PA and Lateral MR#: [id number] Acct: [id number] Name: KO GALINDO Rep #: [id number] : 1995 F 27 From: Janet Rhoades MD PCP: Dr. Charly Nassar MD Status: [facility] ER Study: Chest PA and Lateral Date of Exam: 06/30/23 Exam# [id number] Ordering Dr: Devyn Ramos MD [id number] STUDY: X-RAY CHEST REASON FOR EXAM: Female, [...] Charly Nassar MD; Dr. Devyn Ramos MD Latin Professor: Signed Normal Determination of erythrocyte mean corpuscular volume (MCV)Ordered By: Devyn Ramos on 06-30-2023 MCV (RBC) [Entitic vol] 94.3 fL 81-99 [facility] Emergency Department Summary on 06-30-2023 Emergency Department Summary [facility] Medical Records Department [address] [place] [address] Emergency Department Summary 06/30/23 MR#: [id number] Acct: [id number] Name: KO GALINDO Rep #: [id number] : 1995 27 From: Devyn Ramos MD [...] similar symptoms: No Recent Illness/Hospitalizatio n: [facility] Medical History Bipolar disorder Home Medications benztropine [...] no lymphadeno (more content not included)... Normal Hematocrit Auto (Bld) [Volum e fraction]Ordered By: Devyn Ramos on 06-30-2023 Hematocrit (Bld) [Volume fraction] 39.6 % 37-47 Laboratory - Hematology and Cell countsOrdered By: Devyn Ramos on 06-30-2023 Erythrocyte distribution width (RBC) [Entitic vol] 44.5 fL 35.1-43.9 Erythrocyte distribution width (RBC) [Ratio] 12.8 % 11.6-14.6 Immature granulocytes/100 WBC (Bld) 0.300 % 0.0-0.9 Comment on above: IG% - Immature Granu locytes (promyelocytes, myelocytes and metamyelocytes) > 1% indicates that a LEFT SHIFT is Present. MCH (RBC) [Entitic mass] 31.4 pg 27.0-32.0 Nucleated RBC/100 WBC (Bld) [Ratio] 0 % 0-5 MCHC Auto (RBC) [Mass/Vol]Or dered By: Devyn Ramos on 06-30-2023 MCHC (RBC) [Mass/Vol] 33.3 g/dL 32-36 [facility] Platelets bldOrdered By: Devyn Ramos on 06-30-2023 Platelets (Bld) [#/Vol] 321 10*3/uL 150-450 XR ESOPHAGRAMon 05-04-2023 [facility] SURGICAL PATHOLOGYon 023 Case Report Surgical Pathology Report Case: [id number] Authorizing Provider: Cheryl Alfaro MD Collected: 04/24/2023 09:22 AM Ordering Location: Ambulatory Surgery Received: 04/24/2023 03:18 PM Pathologist: Jaquelin Rosa MD Specimens: A) - DUODENUM BIOPSY, 3rd portion of Duodenum Bxs B) - ANTRUM (STOMACH) BIOPSY, Antral bx h/h C) - ESOPHAGOGASTRIC JUNCTION BIOPSY, GE junction bx D) - ESOPHAGUS MID BIOPSY [facility] FINAL DIAGNOSIS A. Duodenum, third portion, biopsy: [...] - No evidence of esophagitis or eosinophilia. [facility] Gross Description A. DUODENUM BIOPSY Received in [...] 2023 11:05 PM Gross examination performed at [facility], [address] Performing Lab Diagnostic interpretation performed at [facility], [address] [address] CLIA# [id number] Pigment Presser: Tereso Henderson M.D. [facility] EGD DIAGNOSTICon 04-24-2023 [facility] Absolute lymphocyte countOrd ered By: Rishi Rocha on 04-01-2023 Lymphocytes Auto (Unsp spec) [#/Vol] 1.65 10*3/uL 0.83-4.51 Basophil percentageOrdered B y: Rishi Rocha on 04-01-2023 Basophils/100 WBC (Bld) 0.5 % 0-1 [facility] Bilirubin [Mass/Vol] 0.60 mg/dL 0.20-1.00 [facility] Comment on above: For patients on eltr ombopag therapy, use of Dimension [place] TBIL is not recommended. Chloride [Moles/Vol] 111 mmol/L 98-107 [facility] Eosinophils/100 WBC (Bld) 1.5 % 0-5 Glucose [Mass/Vol] 98 mg/dL 74-106 [facility] Neutrophils (Bld) [#/Vol] 3.8 10*3/uL 2.0-7.7 Neutrophils/100 WBC (Bld) 63.5 % 47-70 Potassium [Moles/Vol] 3.8 mmol/L 3.5-5.1 [facility] Protein [Mass/Vol] 7.6 g/dL 6.4-8.2 [facility] Sodium [Moles/Vol] 142 mmol/L 136-145 [facility] WBC (Bld) [#/Vol] 6.1 10*3/uL 4.4-11.0 [facility] Basophil percentage 0 SEEN /hpf 0-5 [facility] Beta hCG serum qualOrdered B y: Rishi Rocha on 04-01-2023 Beta HCG ( test) Ql Negative Bilirubin Test strip Ql (U)O rdered By: Rishi Rocha on 04-01-2023 Bilirubin Ql (U) Negative Negative Blood erythrocytes count (nu mber/volume)Ordered By: Rishi Rocha on 04-01-2023 RBC (Bld) [#/Vol] 4.16 10*6/uL 4.2-5.4 [facility] Blood hemoglobin measurement (mass/volume)Ordered By: Rishi Rocha on 04-01-2023 Hemoglobin (Bld) [Mass/Vol] 13.5 g/dL 12.0-15.0 Blood lymphocytes/100 leukoc ytesOrdered By: Rishi Rocha on 04-01-2023 Lymphocytes/100 WBC (Bld) 27.3 % 19-41 Blood monocytes/100 leukocyt esOrdered By: Rishi Rocha on 04-01-2023 Monocytes/100 WBC (Bld) 6.9 % 0-10 [facility] Blood platelet mean volumeOr dered By: Rishi Rocha on 04-01-2023 Platelet mean volume (Bld) [Entitic vol] 10.6 fL 6.2-12.0 CBC W/Diff, Automatedon 03-11 Absolute Lymph 1.65 X10 3/uL Normal 0.83-4.51 Comment on above: Performed By: #### L 501.2450, L100.0100, L700.6800, L300.3900, L300.4310, L500.4050 #### Laboratory [address] [place], [address] Absolute Neut 3.8 X10 3/uL Normal 2.0-7.7 Comment on above: Performed By: #### L 501.2450, L100.0100, L700.6800, L300.3900, L300.4310, L500.4050 #### Laboratory [address] [place], [address] Basophils/100 WBC (Bld) 0.5 % Normal 0-1 [facility] Comment on above: Performed By: #### L 501.2450, L100.0100, L700.6800, L300.3900, L300.4310, L500.4050 #### Laboratory [address] [place], [address] Eosinophils/100 WBC (Bld) 1.5 % Normal 0-5 Comment on above: Performed By: #### L 501.2450, L100.0100, L700.6800, L300.3900, L300.4310, L500.4050 #### Laboratory [facility] [address] [place], [address] Erythrocyte distribution width (RBC) [Ratio] 13.1 % Normal 11.6-14.6 Comment on above: Performed By: #### L 501.2450, L100.0100, L700.6800, L300.3900, L300.4310, L500.4050 #### Laboratory [address] [place], [address] Hematocrit (Bld) [Volume fraction] 39.7 % Normal 37-47 Comment on above: Performed By: #### L 501.2450, L100.0100, L700.6800, L300.3900, L300.4310, L500.4050 #### Laboratory [address] [place], [address] Hemoglobin (Bld) [Mass/Vol] 13.5 g/dL Normal 12.0-15.0 Comment on above: Performed By: #### L 501.2450, L100.0100, L700.6800, L300.3900, L300.4310, L500.4050 #### Laboratory [address] [place], [address] IG% 0.300 Normal 0.0-0.9 Comment on above: Result Comment: IG% - Immature Granulocytes (promyelocytes, myelocytes and metamyelocytes) > 1% indicates that a LEFT SHIFT is Present. Performed By: #### L 501.2450, L100.0100, L700.6800, L300.3900, L300.4310, L500.4050 #### Laboratory [address] [place], [address] Lymphocytes/100 WBC (Bld) 27.3 % Normal 19-41 Comment on above: Performed By: #### L 501.2450, L100.0100, L700.6800, L300.3900, L300.4310, L500.4050 #### Laboratory [address] [place], [address] MCH (RBC) [Entitic mass] 32.5 pg High 27.0-32.0 Comment on above: Performed By: #### L 501.2450, L100.0100, L700.6800, L300.3900, L300.4310, L500.4050 #### Laboratory [address] [place], [address] MCHC (RBC) [Mass/Vol] 34.0 g/dL Normal 32-36 [facility] Comment on above: Performed By: #### L 501.2450, L100.0100, L700.6800, L300.3900, L300.4310, L500.4050 #### Laboratory [address] [place], [address] MCV (RBC) [Entitic vol] 95.4 fL Normal 81-99 [facility] Comment on above: Performed By: #### L 501.2450, L100.0100, L700.6800, L300.3900, L300.4310, L500.4050 #### Laboratory [address] [place], [address] Monocytes/100 WBC (Bld) 6.9 % Normal 0-10 [facility] Comment on above: Performed By: #### L 501.2450, L100.0100, L700.6800, L300.3900, L300.4310, L500.4050 #### Laboratory [address] [place], [address] Neutrophils/100 WBC (Bld) 63.5 % Normal 47-70 Comment on above: Performed By: #### L 501.2450, L100.0100, L700.6800, L300.3900, L300.4310, L500.4050 #### Laboratory [address] [place], [address] Nucleated RBC (Bld) [#/Vol] 0 10*3/uL Normal 0-5 Comment on above: Performed By: #### L 501.2450, L100.0100, L700.6800, L300.3900, L300.4310, L500.4050 #### Laboratory [address] [place], [address] Platelet mean volume (Bld) [Entitic vol] 10.6 fL Normal 6.2-12.0 Comment on above: Performed By: #### L 501.2450, L100.0100, L700.6800, L300.3900, L300.4310, L500.4050 #### Laboratory [address] [place], [address] Platelets (Bld) [#/Vol] 283 10*3/uL Normal 150-450 Comment on above: Performed By: #### L 501.2450, L100.0100, L700.6800, L300.3900, L300.4310, L500.4050 #### Laboratory [address] [place], [address] RBC (Bld) [#/Vol] 4.16 10*6/uL Low 4.2-5.4 [facility] Comment on above: Performed By: #### L 501.2450, L100.0100, L700.6800, L300.3900, L300.4310, L500.4050 #### Laboratory [address] [place], [address] RDW SD 46.0 fl High 35.1-43.9 Comment on above: Performed By: #### L 501.2450, L100.0100, L700.6800, L300.3900, L300.4310, L500.4050 #### Laboratory [address] [place], [place], [id number] (925 WBC (Bld) [#/Vol] 6.1 10*3/uL Normal 4.4-11.0 [facility] Comment on above: Performed By: #### L 501.2450, L100.0100, L700.6800, L300.3900, L300.4310, L500.4050 #### Laboratory [address] [place], [address] Comprehensive Metabolic [facility] 04-01-2023 Albumin [Mass/Vol] 3.9 g/dL Normal 3.2-5.0 [facility] Comment on above: Performed By: #### L 501.2450, L100.0100, L700.6800, L300.3900, L300.4310, L500.4050 #### [address] [place], [address] Albumin/Globulin [Mass ratio] 1.1 {ratio} Normal 0.9-2.4 Comment on above: Performed By: #### L 501.2450, L100.0100, L700.6800, L300.3900, L300.4310, L500.4050 #### [address] [place], [address] ALK P 53 U/L Normal 45-117 Comment on above: Performed By: #### L 501.2450, L100.0100, L700.6800, L300.3900, L300.4310, L500.4050 #### [address] [place], [address] ALT [Catalytic activity/Vol] 17 U/L Normal 13-56 Comment on above: Performed By: #### L 501.2450, L100.0100, L700.6800, L300.3900, L300.4310, L500.4050 #### [address] [place], [address] AST [Catalytic activity/Vol] 9 U/L Low 15-37 Comment on above: Performed By: #### L 501.2450, L100.0100, L700.6800, L300.3900, L300.4310, L500.4050 #### [address] [place], [address] Bilirubin [Mass/Vol] 0.60 mg/dL Normal 0.20-1.00 [facility] Comment on above: Result Comment: For patients on eltrombopag therapy, use of Dimension [place] TBIL is not recommended. Performed By: #### L 501.2450, L100.0100, L700.6800, L300.3900, L300.4310, L500.4050 #### [address] [place], [address] BUN/CRE 15.3 RATIO Normal 10-20 Comment on above: Performed By: #### L 501.2450, L100.0100, L700.6800, L300.3900, L300.4310, L500.4050 #### [address] [place], [address] CA,Total 9.4 mg/dL Normal 8.5-10.1 Comment on above: Performed By: #### L 501.2450, L100.0100, L700.6800, L300.3900, L300.4310, L500.4050 #### [address] [place], [address] Chloride [Moles/Vol] 111 mmol/L High 98-107 [facility] Comment on above: Performed By: #### L 501.2450, L100.0100, L700.6800, L300.3900, L300.4310, L500.4050 #### [address] [place], [address] CO2 [Moles/Vol] 27.0 mmol/L Normal 21.0-32.0 Comment on above: Performed By: #### L 501.2450, L100.0100, L700.6800, L300.3900, L300.4310, L500.4050 #### [address] [place], [address] Creatinine [Mass/Vol] 0.91 mg/dL Normal 0.55-1.02 [facility] Comment on above: Result Comment: The validity of the calculated GFR GFRAA in patients over 70 years has not been determined. Clinical correlation is essential. Performed By: #### L 501.2450, L100.0100, L700.6800, L300.3900, L300.4310, L500.4050 #### [address] [place], [address] ECRCL 77.50 ml/min Normal Comment on above: Performed By: #### L 501.2450, L100.0100, L700.6800, L300.3900, L300.4310, L500.4050 #### [address] [place], [address] EST GFR - AA 95 mL/min Normal >60 Comment on above: Result Comment: Afri can [place] GFR Calc Performed By: #### L 501.2450, L100.0100, L700.6800, L300.3900, L300.4310, L500.4050 #### [address] [place], [address] GAP 4 Low 5-15 Comment on above: Performed By: #### L 501.2450, L100.0100, L700.6800, L300.3900, L300.4310, L500.4050 #### [address] [place], [address] GFR/1.73 sq M.predicted among non-blacks MDRD (S/P/Bld) [Vol rate/Area] 79 mL/min/{1.73_m2} Normal >60 Comment on above: Result Comment: Non- GFR Calc Performed By: #### L 501.2450, L100.0100, L700.6800, L300.3900, L300.4310, L500.4050 #### [address] [place], [address] Globulin (S) [Mass/Vol] 3.7 g/dL Normal 2.2-4.2 [facility] Comment on above: Performed By: #### L 501.2450, L100.0100, L700.6800, L300.3900, L300.4310, L500.4050 #### [address] [place], [address] Glucose [Mass/Vol] 98 mg/dL Normal 74-106 [facility] Comment on above: Performed By: #### L 501.2450, L100.0100, L700.6800, L300.3900, L300.4310, L500.4050 #### [address] [place], [address] Potassium [Moles/Vol] 3.8 mmol/L Normal 3.5-5.1 [facility] Comment on above: Performed By: #### L 501.2450, L100.0100, L700.6800, L300.3900, L300.4310, L500.4050 #### [address] [place], [address] Sodium [Moles/Vol] 142 mmol/L Normal 136-145 [facility] Comment on above: Performed By: #### L 501.2450, L100.0100, L700.6800, L300.3900, L300.4310, L500.4050 #### [address] [place], [address] T PROT 7.6 g/dL Normal 6.4-8.2 Comment on above: Performed By: #### L 501.2450, L100.0100, L700.6800, L300.3900, L300.4310, L500.4050 #### [address] [place], [address] Urea nitrogen [Mass/Vol] 14 mg/dL Normal 7-18 Comment on above: Performed By: #### L 501.2450, L100.0100, L700.6800, L300.3900, L300.4310, L500.4050 #### [address] [place], [address] Determination of erythrocyte mean corpuscular volume (MCV)Ordered By: Rishi Rocha on 04-01-2023 MCV (RBC) [Entitic vol] 95.4 fL 81-99 [facility] Emergency Department Summary on 04-01-2023 Emergency Department Summary [facility] Medical Records Department [address] [place] [address] Emergency Department Summary 04/01/23 MR#: [id number] Acct: [id number] Name: KO GALINDO Rep #: [id number] : 1995 27 From: Rishi Rocha DO [...] who referred her to the emergency department. [facility] Medical History Bipolar disorder Home Medications cephalexin [...] tract infec (more content not included)... Normal Hematocrit Auto (Bld) [Volum e fraction]Ordered By: Rishi Rocha on 04-01-2023 Hematocrit (Bld) [Volume fraction] 39.7 % 37-47 INR in Blood by Coagulation assayOrdered By: Rishi Rocha on 04-01-2023 INR Coag (Bld) [Relative time] 1.0 {INR} Ketones Test strip Ql (U)Ord ered By: Rishi Rocha on 04-01-2023 Ketones Ql (U) Negative Negative Laboratory - Chemistry and C hemistry - challengeOrdered By: Rishi Rocha on 04-01-2023 ALP [Catalytic activity/Vol] 53 U/L 45-117 ALT [Catalytic activity/Vol] 17 U/L 13-56 CO2 [Moles/Vol] 27.0 mmol/L 21.0-32.0 Globulin (S) [Mass/Vol] 3.7 g/dL 2.2-4.2 [facility] Lipase [Catalytic activity/Vol] 31 U/L 13-75 Comment on above: Please note:LIPASE r evised reference range effective 22. New Lipase methodology. Expected to produce lower values than the previous assay method. NEW Reference Range: 13 - 75 U/L Urea nitrogen/Creatinine [Mass ratio] 15.3 mg/mg 10-20 Laboratory - CoagulationOrde red By: Rishi Rocha on 04-01-2023 aPTT Coag (Bld) [Time] 30.1 s 24.1-36.2 [facility] PT Coag (PPP) [Time] 13.2 s 11.7-14.9 [facility] Laboratory - Hematology and Cell countsOrdered By: Rishi Rocha on 04-01-2023 Erythrocyte distribution width (RBC) [Entitic vol] 46.0 fL 35.1-43.9 Erythrocyte distribution width (RBC) [Ratio] 13.1 % 11.6-14.6 Immature granulocytes/100 WBC (Bld) 0.300 % 0.0-0.9 Comment on above: IG% - Immature Granu locytes (promyelocytes, myelocytes and metamyelocytes) > 1% indicates that a LEFT SHIFT is Present. MCH (RBC) [Entitic mass] 32.5 pg 27.0-32.0 Nucleated RBC/100 WBC (Bld) [Ratio] 0 % 0-5 Lipaseon 04-01-2023 Lipase [Catalytic activity/Vol] 31 U/L Normal 13-75 Comment on above: Result Comment: Treasure caba note: LIPASE revised reference range effective 22. New Lipase methodology. Expected to produce lower values than the previous assay method. NEW Reference Range: 13 - 75 U/L Performed By: #### L 501.2450, L100.0100, L700.6800, L300.3900, L300.4310, L500.4050 #### [address] [place], [place], [id number] MCHC Auto (RBC) [Mass/Vol]Or dered By: Rishi Rocha on 04-01-2023 MCHC (RBC) [Mass/Vol] 34.0 g/dL 32-36 [facility] Mucus LM Ql (Urine sed)Order ed By: Rishi Rocha on 04-01-2023 Mucus Ql (Urine sed) 0 SEEN /hpf [facility] Nitrite Test strip Ql (U)Ord ered By: Rishi Rocha on 04-01-2023 Nitrite Ql (U) Negative Negative No Panel InformationOrdered By: Rishi Rocha on 04-01-2023 Estimated Creatinine Clearance Calc 77.50 ml/min Estimated GFR (MDRD) Amer 95 mL/min >60 Comment on above: GFR Calc Estimated GFR (MDRD) Non-Af Amer 79 mL/min >60 Comment on above: Non- GFR Calc Partial Thromboplast Timeon 04-01-2023 aPTT Coag (Bld) [Time] 30.1 s Normal 24.1-36.2 [facility] Comment on above: Performed By: #### L 501.2450, L100.0100, L700.6800, L300.3900, L300.4310, L500.4050 #### [address] [place], [address] Platelets bldOrdered By: Mago Rocha on 04-01-2023 Platelets (Bld) [#/Vol] 283 10*3/uL 150-450 ,Serum,hCG Quali.on 04-01-2023 HCG, SERUM QUAL Negative Normal Comment on above: Performed By: #### L 501.2450, L100.0100, L700.6800, L300.3900, L300.4310, L500.4050 #### Laboratory [address] [place], [place], [id number] Protein Test strip Ql (U)Ord ered By: Rishi Rocha on 04-01-2023 Protein Ql (U) Negative Negative Prothrombin Time w/INRon INR Coag (PPP) [Relative time] 1.0 {INR} Normal Comment on above: Performed By: #### L 501.2450, L100.0100, L700.6800, L300.3900, L300.4310, L500.4050 #### Laboratory [address] [place], [address] PT Coag (PPP) [Time] 13.2 s Normal 11.7-14.9 [facility] Comment on above: Performed By: #### L 501.2450, L100.0100, L700.6800, L300.3900, L300.4310, L500.4050 #### Laboratory [address] [place], [place], [id number] Serum or plasma albumin lizet urement (mass/volume)Ordered By: Rishi Rocha on 04-01-2023 Albumin [Mass/Vol] 3.9 g/dL 3.2-5.0 [facility] Serum or plasma albumin/glob ulin mass ratioOrdered By: Rishila Rocha on 04-01-2023 Albumin/Globulin [Mass ratio] 1.1 {ratio} 0.9-2.4 Serum or plasma calcium lizet urement (mass/volume)Ordered By: Rishi Rocha on 04-01-2023 Calcium [Mass/Vol] 9.4 mg/dL 8.5-10.1 [facility] Serum or plasma creatinine m easurement (mass/volume)Ordered By: Rishi Rocha on 04-01-2023 Creatinine [Mass/Vol] 0.91 mg/dL 0.55-1.02 [facility] Comment on above: The validity of the calculated GFR & GFRAA in patients over 70 years has not been determined. Clinical correlation is essential. Serum or plasma urea nitroge n measurement (mass/volume)Ordered By: Rishi Rocha on 04-01-2023 Urea nitrogen [Mass/Vol] 14 mg/dL 7-18 Squamous epithelial cells de tection in urine sediment by light microscopyOrdered By: Rishi Rocha on 04-01-2023 Epithelial cells.squamous LM Ql (Urine sed) 0-5 SEEN /hpf 5-10 Stool Occult Blood iFOBon STOB Normal Reference Ran ge = Negative Immunochemical Fecal Occult Blood (iFOBT) method. Hemoccult Stl Ql IA Limitation: Menstral bleeding, constipation bleeding, bleeding hemorrhoids, and urinary bleeding conditions may interfere with test. Occult Blood Negative Normal Comment on above: Performed By: #### M 100.7900 #### Laboratory [address] [place], [address] Stool gastrointestinal hemog lobin detection by immunologic methodOrdered By: Rishi Rocha on 04-01-2023 Lower GI hemoglobin IA Ql (Stl) Lower GI hemoglobin IA Ql (Stl) Thin prep Papanicolaou smear with manual screeningOrdered By: Rishi Rocha on 04-01-2023 Thin prep Papanicolaou smear with manual screening 9 U/L 15-37 Thin prep Papanicolaou smear with manual screening 4 5-15 Urinalysis, Completeon 04-01 EPI,SQUAMOUS 0-5 SEEN Normal 5-10 Comment on above: Order Comment: CLEAN CATCH Performed By: #### L 400.0001 #### Laboratory [address] [place], [address] BACTERIA 0 SEEN Normal None Seen Comment on above: Order Comment: CLEAN CATCH Performed By: #### L 400.0001 #### Laboratory [address] [place], [address] Mucus Ql (Urine sed) 0 SEEN Normal [facility] Comment on above: Order Comment: CLEAN CATCH Performed By: #### L 400.0001 #### Laboratory [address] [place], [address] RBC 0 SEEN Normal 0-5 Comment on above: Order Comment: CLEAN CATCH Performed By: #### L 400.0001 #### Laboratory [address] [place], [address] WBC 0 SEEN Normal 0-5 Comment on above: Order Comment: CLEAN CATCH Performed By: #### L 400.0001 #### Laboratory [address] [place], [address] Urine blood detectionOrdered By: Rishi Rocha on 04-01-2023 RBC Ql (U) 250 /ul Negative RBC Ql (U) 0 SEEN /hpf 0-5 Urine clarityOrdered By: Mago Rocha on 04-01-2023 Clarity (U) Clear Clear Urine color determinationOrd ered By: Rishi Rocha on 04-01-2023 Color (U) Yellow Yellow Urine glucose detectionOrder ed By: Rishi Rocha on 04-01-2023 Glucose Ql (U) Normal mg/dl Normal Urine leukocyte esterase det ection by dipstickOrdered By: Rishi Rocha on 04-01-2023 Leukocyte esterase Test strip Ql (U) Negative Negative Urine pHOrdered By: Rishi gaxiola on 04-01-2023 pH (U) 7.0 [pH] 5.0 - 8.0 Urine sediment bacteria coun t by microscopy (number/high power field)Ordered By: Rishi Rocha on 04-01-2023 Bacteria LM.HPF (Urine sed) [#/Area] 0 /[HPF] None Seen Urine specific gravity measu rementOrdered By: Rishi Rocha on 04-01-2023 Specific gravity (U) [Rel density] 1.005 1.002-1.030 Urobilinogen Auto test strip Ql (U)Ordered By: Rishi Rocha on 04-01-2023 Urobilinogen Ql (U) Normal mg/dl Normal [facility] Strep A (Throat Rapid NANETTE)on 02-19-2023 S. [...] A Screen NEGATIVE Streptococcus group C Normal Comment on above: Performed By: #### M 100676 #### Laboratory [address] [place], [address] Emergency Department Summary on 02-18-2023 Emergency Department Summary [facility] Medical Records Department [address] [place] [address] Emergency Department Summary 02/18/23 MR#: [id number] Acct: [id number] Name: KO GALINDO Rep #: [id number] : 1995 27 From: Roger Foster DO [...] Date/Time: 02/07 (more content not included)... Normal S. pyogenes Ag IF Ql (Throat )Ordered By: Roger Foster on 02-17-2023 S. pyogenes Ag IA Ql (Unsp spec) Streptococcus group C AMYLASE BLDon 01-28-2023 Amylase [Catalytic activity/Vol] 42 U/L 30 - 104 U/L [facility] CBC W Auto Differential pane l (Bld)on 01-28-2023 Basophils (Bld) [#/Vol] 0.09 10*3/uL <0.11 k/uL [facility] Basophils/100 WBC (Bld) 1.0 % [facility] Differential cell count method Nom (Bld) Auto [facility] Eosinophils (Bld) [#/Vol] 0.14 10*3/uL <0.46 k/uL [facility] Eosinophils/100 WBC (Bld) 1.5 % [facility] Erythrocyte distribution width (RBC) [Ratio] 12.4 % 11.5 - 15.0 % [facility] Hematocrit (Bld) [Volume fraction] 39.5 % 36.0 - 46.0 % [facility] Hemoglobin (Bld) [Mass/Vol] 13.4 g/dL 11.5 - 15.5 g/dL [facility] Immature granulocytes (Bld) [#/Vol] <0.10 k/uL [facility] Immature granulocytes/100 WBC (Bld) 0.2 % [facility] Lymphocytes (Bld) [#/Vol] 1.90 10*3/uL 1.00 - 4.00 k/uL [facility] Lymphocytes/100 WBC (Bld) 20.9 % [facility] MCH (RBC) [Entitic mass] 32.1 pg 26.0 - 34.0 pg [facility] MCHC (RBC) [Mass/Vol] 33.9 g/dL 30.5 - 36.0 g/dL [facility] MCV (RBC) [Entitic vol] 94.5 fL 80.0 - 100.0 fL [facility] Monocytes (Bld) [#/Vol] 0.50 10*3/uL <0.87 k/uL [facility] Monocytes/100 WBC (Bld) 5.5 % [facility] Neutrophils (Bld) [#/Vol] 6.45 10*3/uL 1.45 - 7.50 k/uL [facility] Neutrophils/100 WBC (Bld) 70.9 % [facility] Nucleated RBC (Bld) [#/Vol] <0.01 k/uL [facility] Nucleated RBC/100 WBC (Bld) [Ratio] 0.0 /100 WBC [facility] Platelet mean volume (Bld) [Entitic vol] 10.1 fL 9.0 - 12.7 fL [facility] Platelets (Bld) [#/Vol] 284 10*3/uL 150 - 400 k /uL [facility] RBC (Bld) [#/Vol] 4.18 10*6/uL 3.90 - 5.2 0 m/uL [facility] WBC (Bld) [#/Vol] 9.10 10*3/uL 3.70 - 11. 00 k/uL [facility] Comprehensive metabolic 2000 panelon 01-28-2023 Albumin [Mass/Vol] 4.6 g/dL 3.9 - 4.9 g/dL [facility] ALP [Catalytic activity/Vol] 62 U/L 34 - 123 U/L [facility] ALT [Catalytic activity/Vol] 11 U/L 7 - 38 U/L [facility] Anion gap [Moles/Vol] 8 mmol/L Low 9 - 18 mmol/L [facility] AST [Catalytic activity/Vol] 11 U/L Low 13 - 35 U/L [facility] Bilirubin [Mass/Vol] 0.4 mg/dL 0.2 - 1 .3 mg/dL [facility] Calcium [Mass/Vol] 9.4 mg/dL 8.5 - 10. 2 mg/dL [facility] Chloride [Moles/Vol] 104 mmol/L 97 - 10 5 mmol/L [facility] CO2 [Moles/Vol] 27 mmol/L 22 - 30 mmol/L [facility] Creatinine [Mass/Vol] 0.93 mg/dL 0.58 - 0.96 mg/dL [facility] Estimated Glomerular Filtration Rate 87 mL/min/1.73m >=60 mL/min/1.73m [facility] Glucose [Mass/Vol] 106 mg/dL High 74 - 99 mg/dL [facility] Potassium [Moles/Vol] 4.4 mmol/L 3.7 - 5.1 mmol/L [facility] Protein [Mass/Vol] 7.5 g/dL 6.3 - 8.0 g/dL Cl [facility] Sodium [Moles/Vol] 139 mmol/L 136 - 144 mmol/L [facility] Urea nitrogen [Mass/Vol] 12 mg/dL 7 - 21 mg/dL [facility] HCG QUANTITATIVEon 3 HCG.beta subunit Qn <5.0 mIU/mL [facility] LIPASE BLDon 01-28-2023 Lipase [Catalytic activity/Vol] 26 U/L 16 - 61 U/L [facility] No Panel Informationon 01-28 [facility] EMERGENCY REPORTon 3 EMERGENCY REPORT [facility] EMERGENCY ROOM REPORT NAME ACCOUNT SEX AGE ADMIT DISCHARGE PT MED. RECORD# NUMBER DATE DATE TYPE MATEO [id number] F 27 11/30/22 12/01/22 3 KO Da Silva [id number] ROOM: ER DATE OF : 1995 DICTATING [...] Nga Chung DO 11/30/22 21:44 JOB #: [id number] Transcribed By: am 12/01/22 13:27 Electronically signed by: E-SIGN NGA CHUNG DO 12/08/22 19:13 Page 1 of 1 KO GALINDO Emergency Room Report Normal [facility] EMERGENCY REPORTon 3 EMERGENCY REPORT [facility] EMERGENCY ROOM REPORT NAME ACCOUNT SEX AGE ADMIT DISCHARGE PT MED. RECORD# NUMBER DATE DATE TYPE MATEO [id number] F 27 11/30/22 12/01/22 3 KO Da Silva [id number] ROOM: ER DATE OF : 1995 DICTATING [...] Rodolfo Kelley DO 11/30/22 19:17 JOB #: [id number] Transcribed By: am 12/01/22 12:21 Electronically signed by: ARACELI Kelley DO 12/03/22 08:54 Page 2 of 2 KO GALINDO Emergency Room Report Normal [facility] CORONAVIRUS (SARS) ANTIGEN T ESTon 12-01-2022 EXTERNAL QC DONE? YES Normal [facility] Comment on above: Performed By: #### 2 49791 #### [facility],[address] [place] [address] INTERNAL CONTROL PASS Normal [facility] Comment on above: Performed By: #### 2 44527 #### [facility],[address] [place], [place] [id number] SARS ANTIGEN Negative Normal NORMAL: NEGATIVE [facility] Comment on above: Performed By: #### 2 94416 #### [facility],[address] [place] [address] SEND TO ? YES Normal [facility] Comment on above: Result Comment: SARS -CoV-2 THIS TEST IS BEING USED UNDER THE FDA EUA PROCEDURE. THIS ASSAY HAS BEEN VALIDATED AT [facility] FOR USE WITH NASAL AND NASOPHARYNGEAL SWAB [...] PUBLIC HEALTH AUTHORITIES. Performed By: #### 2 [address]5835 #### [place] [address] ACETAMINOPHENon 11-30-2022 Acetaminophen [Mass/Vol] ug/mL Low 10.0 - 30.0 [facility] Comment on above: Performed By: #### 2 92414 #### [place] [id number] ALCOHOL-BLOOD MEDICALon 11-09 Ethanol [Mass/Vol] 29 mg/dL Normal 0 - 50 [facility] Comment on above: Performed By: #### 2 51090 #### [place] [address] Ethanol [Mass/Vol] 130 mg/dL High 0 - 50 [facility] Comment on above: Performed By: #### 2 53871 #### [place] [id number] CBC + DIFFon 11-30-2022 Baso # 0.00 x10EE3/UL Normal 0.00 - 0.10 [facility] Comment on above: Performed By: #### 2 94861 #### [address],[place] [address] Basophils/100 WBC (Bld) 0.2 % Normal 0.0 - 2.0 [facility] Comment on above: Performed By: #### 2 30314 #### [facility],[address] [place] [address] CBC + DIFF Normal [facility] Comment on above: Result Comment: CBC- COMPLETE BLOOD COUNT Performed By: #### 2 22700 #### [facility],[address] [place] [address] EO # 0.00 x10EE3/UL Normal 0.00 - 0.50 [facility] Comment on above: Performed By: #### 2 90498 #### [facility],[address] [place] [address] Eosinophils/100 WBC (Bld) 0.2 % Normal 0.0 - 7.0 [facility] Comment on above: Performed By: #### 2 32086 #### [facility],[address] [place] [address] Erythrocyte distribution width (RBC) [Ratio] 13.9 % Normal 12.0 - 15.6 [facility] Comment on above: Performed By: #### 2 91741 #### [facility],[address] [place] [address] Hematocrit (Bld) [Volume fraction] 42.6 % Normal 34.0 - 46.0 [facility] Comment on above: Performed By: #### 2 94911 #### [facility],[address] [place] [address] Hemoglobin (Bld) [Mass/Vol] 14.3 g/dL Normal 12.0 - 16.0 [facility] Comment on above: Performed By: #### 2 28899 #### [facility],[address] [place] [address] Lymph # 1.80 x10EE3/UL Normal 0.80 - 2.80 [facility] Comment on above: Performed By: #### 2 88878 #### [facility],[address] [place] [address] Lymphocytes/100 WBC (Bld) 11.0 % Low 20.0 - 45.0 [facility] Comment on above: Performed By: #### 2 86014 #### [facility],[address] [place] [address] MANUAL DIFF N/A Normal [facility] Comment on above: Performed By: #### 2 17782 #### [facility],[address] [place], [place] [phone] MCH (RBC) [Entitic mass] 32 pg Normal 27 - 33 [facility] Comment on above: Performed By: #### 2 00031 #### [place] [address] MCHC 34 X10 3 Normal 32 - 36 [facility] Comment on above: Performed By: #### 2 28239 #### [facility],[address] [place] [address] MCV (RBC) [Entitic vol] 96 fL Normal 80 - 99 [facility] Comment on above: Performed By: #### 2 00047 #### [facility],[address] [place] [address] Schuyler # 0.90 x10EE3/UL Normal 0.20 - 1.00 [facility] Comment on above: Performed By: #### 2 16721 #### [facility],[address] [place] [address] MONOS % 5.6 % Normal 0.0 - 10.0 [facility] Comment on above: Performed By: #### 2 74101 #### [facility],[address] [place] [address] Morphology Mihir (Bld) [Interp] N/A Normal [facility] Comment on above: Performed By: #### 2 31130 #### [facility],[address] [place] [address] Neut # 13.30 x10EE3/UL High 1.50 - 7.10 [facility] Comment on above: Performed By: #### 2 03343 #### [facility],[address] [place] [address] Neutrophils/100 WBC (Bld) 83.0 % High 46.0 - 76.0 [facility] Comment on above: Performed By: #### 2 15518 #### [address] [address] PLATELET 381 x10EE3/UL Normal 150 - 450 [facility] Comment on above: Performed By: #### 2 60096 #### [address] [address] Platelet mean volume (Bld) [Entitic vol] 8.6 fL Normal 6.6 - 10.5 [facility] Comment on above: Result Comment: AUTO MATED DIFFERENTIAL Performed By: #### 2 93036 #### [address] [address] RBC 4.46 x 10EE6/UL Normal 4.10 - 5.30 [facility] Comment on above: Performed By: #### 2 53733 #### [address] [address] [address] WBC 16.0 x 10EE3/UL High 4.5 - 10.8 [facility] Comment on above: Performed By: #### 2 71524 #### [address] [address] CMP with eGFRon 11-30-2022 AGE 27 years Normal [facility] Comment on above: Performed By: #### 2 96799 #### [address] [address] Albumin [Mass/Vol] 4.4 g/dL Normal 3.4 - 5.0 [facility] Comment on above: Performed By: #### 2 02937 #### [facility],[address] [place] [address] Albumin/Globulin [Mass ratio] 1.0 {ratio} Normal 0.9 - 1.6 [facility] Comment on above: Performed By: #### 2 23534 #### [facility],[address] [place] [address] ALK PHOS 74 U/L Normal 46 - 116 [facility] Comment on above: Performed By: #### 2 88184 #### [facility],[address] [place] [address]04 ALT [Catalytic activity/Vol] 20 U/L Normal 14 - 59 [facility] Comment on above: Performed By: #### 2 36154 #### [facility],[address] [place] [address] Anion gap [Moles/Vol] 24 mmol/L High 10 - 20 [facility] Comment on above: Performed By: #### 2 81962 #### [facility],[address] [place] [address] 42681 AST [Catalytic activity/Vol] 20 U/L Normal 13 - 39 [facility] Comment on above: Performed By: #### 2 33936 #### [facility],[address] [place] [address] B/C RATIO 10 ratio Normal 0 - 30 [facility] Comment on above: Performed By: #### 2 55446 #### [facility],[address] [place] [address] 38675 Bilirubin [Mass/Vol] 0.7 mg/dL Normal 0.2 - 1.0 [facility] Comment on above: Performed By: #### 2 34887 #### [facility],[address] [place] [address] Calcium [Mass/Vol] 9.3 mg/dL Normal 8.5 - 10.1 [facility] Comment on above: Performed By: #### 2 50759 #### [facility],[address] [place], [place] [id number] Chloride [Moles/Vol] 102 mmol/L Normal 98 - 107 [facility] Comment on above: Performed By: #### 2 49876 #### [facility],[address] [place], [place] [phone] CMP with eGFR Normal [facility] Comment on above: Result Comment: COMP REHENSIVE METABOLIC PANEL Performed By: #### 2 27982 #### [facility],[address] [place] [address] CO2 [Moles/Vol] 17.6 mmol/L Low 21.0 - 32.0 [facility] Comment on above: Performed By: #### 2 06834 #### [facility],[address] [place], [place] [id number] Creatinine [Mass/Vol] 0.89 mg/dL Normal 0.55 - 1.02 [facility] Comment on above: Performed By: #### 2 95374 #### [facility],[address] [place] [address] GFR/1.73 sq M.predicted among non-blacks MDRD (S/P/Bld) [Vol rate/Area] mL/min/{1.73_m2} Normal 60 - 999 [facility] Comment on above: Performed By: #### 2 27185 #### [facility],[address] [place] [address] Result Comment: ACCO RDING TO THE NATIONAL KIDNEY DISEASE EDUCATION PROGRAM(NKDE), A NORMAL eGFR IS A VALUE GREATER THAN OR EQUAL TO 60 ML/MIN/1.73 SQ METERS. CHRONIC KIDNEY DISEASE: <60mL/MIN/1.73 SQ METERS KIDNEY FAILURE: <15mL/MIN/1.73 SQ METERS THIS TEST SHOULD ONLY BE USED FOR PATIENTS 18 YEARS OF AGE AND OLDER. Globulin (S) [Mass/Vol] 4.2 g/dL High 1.5 - 3.8 [facility] Comment on above: Performed By: #### 2 20763 #### [facility],[address] [place] [address]67 Glucose [Mass/Vol] 97 mg/dL Normal 74 - 106 [facility] Comment on above: Performed By: #### 2 80943 #### [facility],[address] [place] [address] Potassium [Moles/Vol] 3.7 mmol/L Normal 3.5 - 5.1 [facility] Comment on above: Performed By: #### 2 89746 #### [facility],[address] [place] [address] Protein [Mass/Vol] 8.6 g/dL High 6.4 - 8.2 [facility] Comment on above: Performed By: #### 2 10358 #### [facility],[address] [place] [address]65 Sodium [Moles/Vol] 140 mmol/L Normal 136 - 145 [facility] Comment on above: Performed By: #### 2 36333 #### [facility],[address] [place] [address] Urea nitrogen [Mass/Vol] 9 mg/dL Normal 7 - 18 [facility] Comment on above: Performed By: #### 2 64170 #### [facility],[address] [place] [address] DRUG SCREEN URINE MEDICon AMPHETAMINES Negative Normal [facility] Comment on above: Performed By: #### 2 34059 #### [facility],[address] [place] [address] B-DIAZEPINES Negative Normal [facility] Comment on above: Performed By: #### 2 62955 #### [facility],[address] [place] [address] BARBITURATES Negative Normal [facility] Comment on above: Performed By: #### 2 12793 #### [facility],[address] [place] [address] COCAINE Negative Normal [facility] Comment on above: Performed By: #### 2 70931 #### [facility],[address] [place], [place] [phone] DRUG SCREEN URINE MEDIC Normal [facility] Comment on above: Result Comment: DRUG SCREEN - URINE Performed By: #### 2 09861 #### [facility],[address] [place] [address] METHADONE Negative Normal [facility] Comment on above: Performed By: #### 2 17941 #### [facility],[address] [place] [address] OPIATES Negative Normal [facility] Comment on above: Performed By: #### 2 34366 #### [facility],[address] [place], [place] [phone] PCP Negative [facility] Comment on above: Performed By: #### 2 04458 #### [facility],[address] [place], [place] [phone] THC Positive Normal [facility] Comment on above: Result Comment: TRAVON ENTS RECEIVING PROTON PUMP INHIBITORS MAY DEMONSTRATE FALSE POSITIVE THC/CANNABINOID RESULTS. AN ALTERNATIVE CONFIRMATORY METHOD SHOULD BE CONSIDERED TO VERIFY POSITIVE RESULTS. Performed By: #### 2 11274 #### [facility],[address] [place], [place] [phone] URINEon 11-30-2022 Beta HCG ( test) Ql (U) Negative Normal NEGATIVE [facility] Comment on above: Performed By: #### 2 31837 #### [facility],[address] [place], [place] [phone] EXTERNAL QC DONE? YES Normal [facility] Comment on above: Performed By: #### 2 53413 #### [facility],[address] [place] [address] INTERNAL QC PASS Normal [facility] Comment on above: Performed By: #### 2 54042 #### [facility],[address] [place], [place] [phone] SALICYLATEon 11-30-2022 SALICYLATE 0.9 mg/dl Low 2.8 - 20.0 [facility] Comment on above: Result Comment: *PAT IENTS TREATED WITH SULFASALAZINE MAY GENERATE A FALSE HIGH RESULT FOR SALICYLATE. *PATIENTS TREATED WITH SULFAPYRIDINE MAY GENERATE A FALSE LOW RESULT FOR SALICYLATE. Performed By: #### 2 18770 #### [facility],[address] [place] [address] URINALYSISon 11-30-2022 Bilirubin Ql (U) Negative Normal NORMAL: NEGATIVE [facility] Comment on above: Performed By: #### 2 79419 #### [facility],[address] [place], [place] [phone] Clarity (U) clear Normal NORMAL: CLEAR [facility] Comment on above: Performed By: #### 2 15720 #### [facility],[address] [place] [address] Color (U) tiago Normal NORMAL: YELLOW [facility] Comment on above: Performed By: #### 2 01267 #### [facility],[address] [place] [address] Glucose Ql (U) NORM Normal NORMAL: NORMAL [facility] Comment on above: Performed By: #### 2 18844 #### [facility],[address] [place] [address] Hemoglobin Ql (U) Negative Normal NORMAL: NEGATIVE [facility] Comment on above: Performed By: #### 2 52390 #### [facility],[address] [place] [address] Ketone 50 Abnormal NORMAL: NEGATIVE [facility] Comment on above: Performed By: #### 2 81591 #### [facility],[address] [place] [address] Leukocytes Negative Normal NORMAL: NEGATIVE [facility] Comment on above: Performed By: #### 2 61008 #### [facility],[address] [place] [address] Nitrite Ql (U) Negative Normal NORMAL: NEGATIVE [facility] Comment on above: Performed By: #### 2 21125 #### [facility],[address] [place] [address] pH (U) 5 [pH] Normal NORMAL: 5.0-8.0 [facility] Comment on above: Performed By: #### 2 97202 #### [facility],[address] [place] [address] Protein Ql (U) 30 Abnormal NORMAL: NEGATIVE [facility] Comment on above: Performed By: #### 2 18815 #### [place] [address] [address] [place] 1.025 Normal NORMAL: 1.010-1.030 [facility] Comment on above: Performed By: #### 2 00944 #### [place] [address] Specimen Type Void Normal [facility] Comment on above: Performed By: #### 2 91585 #### [facility],[address] [place] [address] Urinalysis dipstick W Reflex Microscopic panel (U) NOT INDICATED Normal [facility] Comment on above: Performed By: #### 2 91258 #### [place] [address] Urobilinog NORM Normal NORMAL: NORMAL [facility] Comment on above: Performed By: #### 2 80246 #### [place] [address] CBC W Auto Differential pane l (Bld)on 11-14-2022 Basophils (Bld) [#/Vol] 0.06 10*3/uL <0.11 k/uL [facility] Basophils/100 WBC (Bld) 0.5 % C [facility] Differential cell count method Nom (Bld) Auto [facility] Eosinophils (Bld) [#/Vol] 0.10 10*3/uL <0.46 k/uL [facility] Eosinophils/100 WBC (Bld) 0.9 % [facility] Erythrocyte distribution width (RBC) [Ratio] 13.9 % 11.5 - 15.0 % [facility] Hematocrit (Bld) [Volume fraction] 40.6 % 36.0 - 46.0 % [facility] Hemoglobin (Bld) [Mass/Vol] 13.9 g/dL 11.5 - 15.5 g/dL [facility] Immature granulocytes (Bld) [#/Vol] <0.10 k/uL [facility] Immature granulocytes/100 WBC (Bld) 0.2 % [facility] Lymphocytes (Bld) [#/Vol] 2.62 10*3/uL 1.00 - 4.00 k/uL [facility] Lymphocytes/100 WBC (Bld) 23.6 % [facility] MCH (RBC) [Entitic mass] 32.9 pg 26.0 - 34.0 pg [facility] MCHC (RBC) [Mass/Vol] 34.2 g/dL 30.5 - 36.0 g/dL [facility] MCV (RBC) [Entitic vol] 96.0 fL 80.0 - 100.0 fL [facility] Monocytes (Bld) [#/Vol] 0.55 10*3/uL <0.87 k/uL [facility] Monocytes/100 WBC (Bld) 5.0 % [facility] Neutrophils (Bld) [#/Vol] 7.74 10*3/uL High 1.45 - 7.50 k/uL [facility] Neutrophils/100 WBC (Bld) 69.8 % [facility] Nucleated RBC (Bld) [#/Vol] <0.01 k/uL [facility] Nucleated RBC/100 WBC (Bld) [Ratio] 0.0 /100 WBC [facility] Platelet mean volume (Bld) [Entitic vol] 11.1 fL 9.0 - 12.7 fL [facility] Platelets (Bld) [#/Vol] 295 10*3/uL 150 - 400 k /uL [facility] RBC (Bld) [#/Vol] 4.23 10*6/uL 3.90 - 5.2 0 m/uL [facility] WBC (Bld) [#/Vol] 11.09 10*3/uL High 3.70 - 11 .00 k/uL [facility] Comprehensive metabolic 2000 panelon 11-14-2022 Albumin [Mass/Vol] 4.3 g/dL 3.9 - 4.9 g/dL [facility] ALP [Catalytic activity/Vol] 58 U/L 34 - 123 U/L [facility] ALT [Catalytic activity/Vol] 16 U/L 7 - 38 U/L [facility] Anion gap [Moles/Vol] 11 mmol/L 9 - 18 mmol/L [facility] AST [Catalytic activity/Vol] 19 U/L 13 - 35 U/L [facility] Bilirubin [Mass/Vol] 1.1 mg/dL 0.2 - 1 .3 mg/dL [facility] Calcium [Mass/Vol] 9.8 mg/dL 8.5 - 10. 2 mg/dL [facility] Chloride [Moles/Vol] 103 mmol/L 97 - 10 5 mmol/L [facility] CO2 [Moles/Vol] 25 mmol/L 22 - 30 mmol/L [facility] Creatinine [Mass/Vol] 0.76 mg/dL 0.58 - 0.96 mg/dL [facility] Estimated Glomerular Filtration Rate 111 mL/min/1.73m >=60 mL/min/1.73m [facility] Glucose [Mass/Vol] 73 mg/dL Low 74 - 99 mg/dL [facility] Potassium [Moles/Vol] 4.2 mmol/L 3.7 - 5.1 mmol/L [facility] Protein [Mass/Vol] 7.2 g/dL 6.3 - 8.0 g/dL [facility] Sodium [Moles/Vol] 139 mmol/L 136 - 144 mmol/L [facility] Urea nitrogen [Mass/Vol] 13 mg/dL 7 - 21 mg/dL [facility] LIPASE BLDon 11-14-2022 Lipase [Catalytic activity/Vol] 25 U/L 16 - 61 U/L [facility] HCG QUAL UR B/Oon 11-12-2022 status Negative neg - pos [facility] Quality Check Yes [facility] CT ABDOMEN PELVIS WITH IV CO NTRAST [...] on ThuApr 03, 2022 7:23:13 PM EDT [facility] Comment on above: Order Comment: Injur y/Trauma or Illness?:Illness/Other How long have you had these symptoms (acute/chronic)?:Acute Reason for exam?:lower abdominal pain since 2pm today, reports flank pain and burning with urination Type of Exam?:Initial Additional signs and symptoms?: Coronavirus 2019 0 COVID 19 Result 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 [facility] Comment on above: Result Comment: Nega sean for This test was developed and its performance characteristics determined by [facility]'s [facility] [place]. This test has been authorized by FDA [...] developed and its performance characteristics determined by [facility]'s [facility] [place]. This test has been authorized by FDA [...] developed and its performance characteristics determined by [facility] [place]. This test has been authorized by FDA under an Emergency Use Authorization (EUA). This test has been validated in accordance with the FDA's Guidance Document Policy for Diagnostics Testing in Laboratories Certified to Perform High Complexity Testing under CLIA prior to Emergency use Authorization for Coronavirus Disease 2019 during the Public Health Emergency issued on October 08, 2019. COVID 19 Source USED CAR SALES MANAGER USED CAR SALES MANAGER Normal [facility] Surgical Tissue Examon 04-12 Surgical Tissue Exam Test performed at [place] [address] NAME: KO GALINDO REQUESTING: CHERYL ALFARO MD [...] PRINTED: 04/14/2019 Page 1 of 1 Normal [facility] Comment on above: Performed By: #### S URG #### [facility] [address] [place], [place] [address] Urine HCG, Qual.on 9 Beta HCG ( test) Ql (U) Negative Normal Negative [facility] Comment on above: Performed By: #### L HCG2 #### [facility] [address] [place], [place] [address] Vital Signs Date Time Vital Sign Value Performing Clinician Rosanne kamara 07-11-2024 08:18-0500 Body height 160 cm Alexus Alvarez APRN.FIELD SERVICE MANAGER Work Phone: [facility] 07-11-2024 08:18-0500 Body mass index (BMI) [Ratio] 22.67 kg/m2 Alexus Alvarez SEWER INSPECTOR.FIELD SERVICE MANAGER Work Phone: [facility] 07-11-2024 08:18-0500 Body weight 58.06 kg Alexus Alvarez SEWER INSPECTOR.FIELD SERVICE MANAGER Work Phone: [facility] 07-11-2024 08:18-0500 Diastolic blood pressure 64 mm[Hg] Alexus Alvarez SEWER INSPECTOR.FIELD SERVICE MANAGER Work Phone: [facility] 07-11-2024 08:18-0500 Systolic blood pressure 106 mm[Hg] Alexus Alvarez SEWER INSPECTOR.FIELD SERVICE MANAGER Work Phone: [facility] 10-13-2023 07:33-0500 Body height 161.5 cm Johanny Podlogar SEWER INSPECTOR.FIELD SERVICE MANAGER Work Phone: [facility] 10-13-2023 07:33-0500 Body weight 57.7 kg Johanny Podlogar SEWER INSPECTOR.FIELD SERVICE MANAGER Work Phone: [facility] 10-13-2023 07:33-0500 Diastolic blood pressure 72 mm[Hg] Johanny Podlogar SEWER INSPECTOR.FIELD SERVICE MANAGER Work Phone: [facility] 10-13-2023 07:33-0500 Heart rate 72 /min Johanny Podlogar SEWER INSPECTOR.FIELD SERVICE MANAGER Work Phone: [facility] 10-13-2023 07:33-0500 Respiratory rate 18 /min Johanny Podlogar SEWER INSPECTOR.FIELD SERVICE MANAGER Work Phone: [facility] 10-13-2023 07:33-0500 SaO2% (BldA) [Mass fraction] 96 % Johanny Bainslogally SEWER INSPECTOR.FIELD SERVICE MANAGER Work Phone: [facility] 10-13-2023 07:33-0500 Systolic blood pressure 108 mm[Hg] Johanny Bainslogally SEWER INSPECTOR.FIELD SERVICE MANAGER Work Phone: [facility] 09-07-2023 15:47-0500 Respiratory rate 16 /min [facility] 09-07-2023 13:40-0500 Body height 160.02 cm [facility] 09-07-2023 13:40-0500 Body mass index (BMI) [Ratio] 22.4 kg/m2 09-07-2023 13:40-0500 Body temperature 97.9 [degF] [facility] 09-07-2023 13:40-0500 Body weight 57.32 kg [facility] 09-07-2023 13:40-0500 Diastolic blood pressure 99 mm[Hg] 09-07-2023 13:40-0500 Heart rate 105 /min [facility] 09-07-2023 13:40-0500 SaO2% (BldA) [Mass fraction] 99 % 09-07-2023 13:40-0500 Systolic blood pressure 133 mm[Hg] 07-10-2023 11:28-0500 Body height 160 cm Alexus Alvarez APRN.FIELD SERVICE MANAGER Work Phone: [facility] 07-10-2023 11:28-0500 Body weight 60.24 kg Alexus Alvarez SEWER INSPECTOR.FIELD SERVICE MANAGER Work Phone: [facility] 07-10-2023 11:28-0500 Diastolic blood pressure 64 mm[Hg] Alexus Alvarez SEWER INSPECTOR.FIELD SERVICE MANAGER Work Phone: [facility] 07-10-2023 11:28-0500 Systolic blood pressure 100 mm[Hg] Alexus Alvarez SEWER INSPECTOR.FIELD SERVICE MANAGER Work Phone: [facility] 07-07-2023 08:16-0500 Body weight 58.6 kg Miladis Nassar MD Work Phone: [facility] 07-07-2023 08:16-0500 Diastolic blood pressure 66 mm[Hg] Miladis Nassar MD Work Phone: [facility] 07-07-2023 08:16-0500 Heart rate 93 /min Miladis Nassar MD Work Phone: [facility] 07-07-2023 08:16-0500 Respiratory rate 16 /min Miladis Nassar MD Work Phone: [facility] 07-07-2023 08:16-0500 SaO2% (BldA) [Mass fraction] 98 % Miladis Nassar MD Work Phone: [facility] 07-07-2023 08:16-0500 Systolic blood pressure 108 mm[Hg] Miladis Nassar MD Work Phone: [facility] 07-03-2023 22:42-0500 Body mass index (BMI) [Ratio] 24 kg/m2 07-03-2023 22:42-0500 Body temperature 98.3 [degF] [facility] 07-03-2023 22:42-0500 Body weight 59.64 kg [facility] 07-03-2023 22:42-0500 Diastolic blood pressure 90 mm[Hg] 07-03-2023 22:42-0500 Heart rate 102 /min [facility] 07-03-2023 22:42-0500 Respiratory rate 18 /min [facility] 07-03-2023 22:42-0500 SaO2% (BldA) [Mass fraction] 98 % 07-03-2023 22:42-0500 Systolic blood pressure 152 mm[Hg] 06-30-2023 15:23-0500 Diastolic blood pressure 84 mm[Hg] 06-30-2023 15:23-0500 Heart rate 82 /min [facility] 06-30-2023 15:23-0500 Respiratory rate 18 /min [facility] 06-30-2023 15:23-0500 SaO2% (BldA) [Mass fraction] 99 % 06-30-2023 15:23-0500 Systolic blood pressure 130 mm[Hg] 06-30-2023 13:39-0500 Body height 160.02 cm [facility] 06-30-2023 13:39-0500 Body mass index (BMI) [Ratio] 23.1 kg/m2 06-30-2023 13:39-0500 Body temperature 97.5 [degF] [facility] 06-30-2023 13:39-0500 Body weight 59.32 kg [facility] 04-24-2023 10:03-0400 Diastolic blood pressure 65 mm[Hg] Cheryl Alfaro MD Work Phone: [facility] 04-24-2023 10:03-0400 Heart rate 56 /min Cheryl Alfaro MD Work Phone: [facility] 04-24-2023 10:03-0400 Respiratory rate 16 /min Cheryl Alfaro MD Work Phone: [facility] 04-24-2023 10:03-0400 SaO2% (BldA) [Mass fraction] 93 % Cheryl Alfaro MD Work Phone: [facility] 04-24-2023 10:03-0400 Systolic blood pressure 111 mm[Hg] Cheryl Alfaro MD Work Phone: [facility] 04-24-2023 08:54-0400 Body temperature 97.39 [degF] Cheryl Alfaro MD Work Phone: [facility] 04-24-2023 08:54-0400 Body weight 61.1 kg Cheryl Alfaro MD Work Phone: [facility] 04-07-2023 15:24-0400 Body height 160 cm Vivian WHIPPLE-C Work Phone: [facility] 04-07-2023 15:24-0400 Body temperature 98.4 [degF] Vivian WHIPPLE-C Work Phone: [facility] 04-07-2023 15:24-0400 Body weight 61.15 kg Vivian Longbons PA-C Work Phone: [facility] 04-07-2023 15:24-0400 Diastolic blood pressure 67 mm[Hg] Vivian Longbons PA-C Work Phone: [facility] 04-07-2023 15:24-0400 Heart rate 91 /min Vivian Longbons PA-C Work Phone: [facility] 04-07-2023 15:24-0400 SaO2% (BldA) [Mass fraction] 96 % Vivian Longbons PA-C Work Phone: [facility] 04-07-2023 15:24-0400 Systolic blood pressure 115 mm[Hg] Vivian Longbons PA-C Work Phone: [facility] 04-03-2023 08:04-0400 Body temperature 97 [degF] Miladis Nassar MD Work Phone: [facility] 04-03-2023 08:04-0400 Body weight 64.23 kg Miladis Nassar MD Work Phone: [facility] 04-03-2023 08:04-0400 Diastolic blood pressure 68 mm[Hg] Miladis Nassar MD Work Phone: [facility] 04-03-2023 08:04-0400 Heart rate 82 /min Miladis Nassar MD Work Phone: [facility] 04-03-2023 08:04-0400 Respiratory rate 16 /min Miladis Nassar MD Work Phone: [facility] 04-03-2023 08:04-0400 SaO2% (BldA) [Mass fraction] 94 % Miladis Nassar MD Work Phone: [facility] 04-03-2023 08:04-0400 Systolic blood pressure 104 mm[Hg] Miladis Nassar MD Work Phone: [facility] 04-01-2023 14:35-0400 Diastolic blood pressure 76 mm[Hg] 04-01-2023 14:35-0400 Heart rate 70 /min [facility] 04-01-2023 14:35-0400 Respiratory rate 16 /min [facility] 04-01-2023 14:35-0400 SaO2% (BldA) [Mass fraction] 99 % 04-01-2023 14:35-0400 Systolic blood pressure 128 mm[Hg] 04-01-2023 11:26-0400 Body mass index (BMI) [Ratio] 25.5 kg/m2 04-01-2023 11:26-0400 Body weight 65.4 kg [facility] 04-01-2023 11:13-0400 Body height 160.02 cm [facility] 04-01-2023 11:13-0400 Body temperature 97.2 [degF] [facility] 02-17-2023 21:33-0400 Respiratory rate 17 /min [facility] 02-17-2023 18:48-0400 Body temperature 98.8 [degF] [facility] 02-17-2023 18:48-0400 Diastolic blood pressure 67 mm[Hg] 02-17-2023 18:48-0400 Heart rate 80 /min [facility] 02-17-2023 18:48-0400 SaO2% (BldA) [Mass fraction] 99 % 02-17-2023 18:48-0400 Systolic blood pressure 114 mm[Hg] 02-17-2023 16:21-0400 Body height 160.02 cm [facility] 02-17-2023 16:21-0400 Body mass index (BMI) [Ratio] 25.4 kg/m2 02-17-2023 16:21-0400 Body weight 65.03 kg [facility] 01-28-2023 10:31-0400 Body weight 65.77 kg Melida Dick APRN.CNP Work Phone: [facility] 01-28-2023 10:31-0400 Diastolic blood pressure 84 mm[Hg] Melida Riverahof SEWER INSPECTOR.FIELD SERVICE MANAGER Work Phone: [facility] 01-28-2023 10:31-0400 Heart rate 80 /min Melida Romerof SEWER INSPECTOR.FIELD SERVICE MANAGER Work Phone: [facility] [facility] 01-28-2023 10:31-0400 Respiratory rate 16 /min Melida Riverahof SEWER INSPECTOR.FIELD SERVICE MANAGER Work Phone: [facility] 01-28-2023 10:31-0400 SaO2% (BldA) [Mass fraction] 96 % Melida Riverahof SEWER INSPECTOR.FIELD SERVICE MANAGER Work Phone: [facility] 01-28-2023 10:31-0400 Systolic blood pressure 120 mm[Hg] Melida Riverahof SEWER INSPECTOR.FIELD SERVICE MANAGER Work Phone: [facility] 11-12-2022 16:32-0400 Body weight 67.31 kg Miladis Nassar MD Work Phone: [facility] 11-12-2022 16:32-0400 Diastolic blood pressure 78 mm[Hg] Miladis Nassar MD Work Phone: [facility] 11-12-2022 16:32-0400 Heart rate 91 /min Miladis Nassar MD Work Phone: [facility] 11-12-2022 16:32-0400 Respiratory rate 18 /min Miladis Nassar MD Work Phone: [facility] 11-12-2022 16:32-0400 SaO2% (BldA) [Mass fraction] 98 % Miladis Nassar MD Work Phone: [facility] 11-12-2022 16:32-0400 Systolic blood pressure 126 mm[Hg] Miladis Nassar MD Work Phone: [facility] Encounters Encounter Date Encounter Type Care Provider Facility Start: 07-11-2024 End: 07-11-2024 ambulatory MILADIS NASSAR Facility:[facility] Start: 07-11-2024 End: 07-11-2024 Patient encounter procedure Alexus Kim WRENFIELD SERVICE MANAGER Work Phone: OB/Gynecology Comment on above: Encounter for gyneco logical examination (general) (routine) without abnormal findings (Primary Dx); Screening for STD (sexually transmitted disease); Fibrocystic breast changes of both breasts Start: 07-11-2024 End: 07-11-2024 Patient encounter status Alexus Kim ROBERT.FIELD SERVICE MANAGER Work Phone: [facility] Start: 10-19-2023 [facility] Comment on above: Smoking Cessation Start: 10-13-2023 Telephone encounter Charly Nassar MD Work Phone: [facility] Comment on above: Pharmacy notified Start: 10-13-2023 End: 10-13-2023 ambulatory MILADIS NASSAR Facility:[facility] Start: 10-13-2023 End: 10-13-2023 Patient encounter procedure Johanny Stauffer APRN.FIELD SERVICE MANAGER Work Phone: [facility] Comment on above: Routine physical exa mination (Primary Dx); Vaping nicotine dependence, tobacco product; Cellulitis of skin; Bipolar affective disorder, current episode mixed, current episode severity unspecified (HCC); Anxiety and depression Start: 10-13-2023 End: 10-13-2023 Physical examination Johanny Stauffer APRN.FIELD SERVICE MANAGER Work Phone: [facility] Work Phone: Start: 09-08-2023 End: 09-08-2023 ambulatory MILADIS NASSAR Facility:[facility] Start: 09-07-2023 End: 09-07-2023 Emergency department patient visit Elias Quezada Facility: Start: 09-07-2023 End: 09-07-2023 Emergency department patient visit -Emergency Department Work Phone: Start: 09-06-2023 End: 09-06-2023 Emergency department patient visit MILADIS NASSAR [facility] Start: 08-21-2023 End: 08-21-2023 ambulatory MILADIS NASSAR Facility:[id number] Start: 08-12-2023 End: 08-12-2023 ambulatory KAMALJIT GORDON Facility:[facility] Start: 07-28-2023 End: 07-28-2023 ambulatory GABRIEL BARRETT Facility:[facility] Start: 07-24-2023 Telephone encounter Birgit snider PA-C Work Phone: Orthopaedics Comment on above: Schedule Surgery Start: 07-24-2023 End: 07-24-2023 ambulatory MILADIS NASSAR Facility:[facility] Start: 07-24-2023 End: 07-24-2023 Office outpatient new 45 minutes Kamaljit Gordon PA-C Work Phone: Plastic Surgery Comment on above: Closed displaced fra cture of shaft of fifth metacarpal bone of right hand, initial encounter (Primary Dx) Start: 07-22-2023 End: 07-22-2023 ambulatory BIRGIT TURCIOS Facility:[facility] Start: 07-17-2023 End: 07-17-2023 ambulatory MILADIS NASSAR Facility:[facility] Start: 07-17-2023 End: 07-17-2023 Patient encounter procedure Luis Fernando Mcadams Work Phone: Orthopaedics Comment on above: Right hand pain (Lilian belinda Dx); Closed displaced fracture of shaft of fifth metacarpal bone of right hand, initial encounter Start: 07-11-2023 End: 07-11-2023 Emergency department patient visit LUCIA LAURENT [facility] Start: 07-10-2023 End: 07-10-2023 Patient encounter procedure Alexus Alvarez APRN.FIELD SERVICE MANAGER Work Phone: OB/Gynecology Comment on above: Encounter for gyneco logical examination (general) (routine) without abnormal findings (Primary Dx); Screening for cervical cancer; Encounter for screening for human papillomavirus (HPV); Screen for STD (sexually transmitted disease); Fibrocystic disease of left breast; PCB (post coital bleeding) Start: 07-10-2023 End: 07-10-2023 Patient encounter status Alexus Alvarez APRN.FIELD SERVICE MANAGER Work Phone: [facility] Start: 07-07-2023 End: 07-07-2023 Patient encounter procedure Miladis Nassar MD Work Phone: [facility] Comment on above: Posterior chest pain (Primary Dx); Anxiety; Bipolar affective disorder, current episode mixed, current episode severity unspecified (HCC); Nicotine abuse Start: 07-04-2023 End: 07-04-2023 Emergency department patient visit [facility] Facility: Start: 07-03-2023 End: 07-04-2023 Emergency department patient visit -Emergency Department Work Phone: Start: 06-30-2023 End: 06-30-2023 Emergency department patient visit [facility] Facility: Start: 06-30-2023 ambulatory Miladis Nassar MD Work Phone: [facility] Comment on above: chest discomfort Start: 06-30-2023 End: 06-30-2023 Emergency department patient visit -Emergency Department Work Phone: Start: 06-11-2023 Telephone encounter [...] encounter procedure Miladis Nassar MD Work Phone: [facility] Comment on above: Nausea and vomiting, unspecified vomiting type (Primary Dx); Hematemesis with nausea; Gastroesophageal reflux disease, unspecified whether esophagitis present; Dysphagia, unspecified type; Odynophagia; Epigastric pain Start: 04-01-2023 Telephone encounter Charly Nassar MD Work Phone: [facility] Comment on above: Gastrointestinal Ble ed; Patient concern Start: 04-01-2023 End: 04-01-2023 Emergency department patient visit Rishila Linclaudia Facility: Start: 04-01-2023 End: 04-01-2023 Emergency department patient visit -Emergency Department Work Phone: Start: 02-17-2023 End: 02-17-2023 Emergency department patient visit Charly Nassar Facility: Start: 02-17-2023 End: 02-17-2023 Emergency department patient visit -Emergency Department Work Phone: Start: 01-29-2023 Telephone encounter Melida johnson APRN.CNP Work Phone: [facility] Comment on above: Results (Labs/ US) Start: 01-28-2023 End: 01-28-2023 Subsequent hospital visit by physician [facility] Work Phone: Radiology Comment on above: RUQ pain [R10.11] Start: 01-28-2023 End: 01-28-2023 Patient encounter procedure Melida Dick APRN.CNP [facility] Comment on above: RUQ pain (Primary Dx ); Nausea and vomiting, unspecified vomiting type Start: 11-30-2022 End: 12-01-2022 Emergency department patient visit MILADIS NASSAR [facility] Start: 11-12-2022 End: 11-12-2022 Patient encounter procedure Miladis Nassar MD Work Phone: [facility] Comment on above: Epigastric pain (Lilian trevino Dx); Bulimia nervosa Start: 04-05-2022 ambulatory Lilian Hay RN NURSE O N CALL Comment on above: Blood Pressure; Knee Swelling Start: 04-03-2022 End: 04-03-2022 Emergency department patient visit PHYSICIAN [facility] Procedures Date Procedure Procedure Detail Performing Clinician Start: 10-13-2023 Adult depression screening assessment Alexus Alvarez APRN.FIELD SERVICE MANAGER Work Phone: Start: 06-30-2023 Plain chest X-ray Start: 06-10-2023 Breath hydrogen/methane test Vivian gya PA-C Work Phone: Start: 05-04-2023 Radiologic exam [...] abdominal real time w/image limited Melida Dick APRN.FIELD SERVICE MANAGER Work Phone: Start: 11-30-2022 Urinalysis MILADIS NASSAR Comment on above: Result Comment: URINALYSIS Performed By: #### 2 [id number] #### [facility],[address] [place] [address] Start: 11-12-2022 Urine test visual color cmprsn meths Miladis Nassar MD Work Phone: Start: 08-24-2018 Adult depression screening assessment Lilian Hay RN Plan of Treatment Date Care Activity Detail Author Start: 10-08-2030 Urine microalbumin profile DTaP,Tdap,Td Vaccine (2 - Td or Tdap) [facility] Start: 07-10-2026 Screening for malign ant neoplasm of cervix [facility] Start: 07-12-2025 End: 07-12-2025 Patient encounter procedure 07/12/2025 8:15 AM EST Office Visit OB/Gynecology [address] [place] [address] Alexus Alvarez APRN.FIELD SERVICE MANAGER [address] [place] [address] Annual OB/Gynecology Comment on above: Annual Start: 10-12-2024 Depression Screening Depression Scre ening [facility] Start: 07-11-2024 End: 10-10-2024 Hepatitis B virus surface Ag [Presence] in Serum [facility] Comment on above: Expected: 07/11/2024 , Expires: 10/10/2024 Start: 07-11-2024 End: 10-10-2024 Hepatitis C virus Ab [Presence] in Serum [facility] Comment on above: Expected: 07/11/2024 , Expires: 10/10/2024 Start: 07-11-2024 End: 10-10-2024 HIV 1+2 Ab [Presence] in Serum or Plasma by Immunoassay [facility] Comment on above: Expected: 07/11/2024 , Expires: 10/10/2024 Start: 07-11-2024 End: 10-10-2024 SYPHILIS TREPONEMAL W/REFLEX [facility] Comment on above: Expected: 07/11/2024 , Expires: 10/10/2024 Start: 07-07-2024 Covid-19 Vaccine (#1) Covid-19 Vacci ne (#1) [facility] Comment on above: Postponed from 12/30 (Declined at this time) Start: 07-07-2024 Covid-19 Vaccine () Covid-19 Vaccine () [facility] Comment on above: Postponed from 04/10 (Declined at this time) Start: 04-10-2024 Covid-19 Vaccine ( season) Covid-19 Vaccine ( season) [facility] Start: 04-10-2024 Influenza vaccination Influenza Vacc ine (#1) [facility] Start: 02-07-2024 Influenza vaccination Influenza Vacc ine (#1) [facility] Comment on above: Postponed from 04/10 (Declined at this time) Start: 09-07-2023 [facility] Start: 07-10-2023 End: 10-09-2023 Hepatitis B virus core IgM Ab [Presence] in Serum [facility] Work Phone: Comment on above: Expected: 07/10/2023 , Expires: 10/09/2023 Start: 07-10-2023 End: 10-09-2023 Hepatitis C virus Ab [Presence] in Serum [facility] Work Phone: Comment on above: Expected: 07/10/2023 , Expires: 10/09/2023 Start: 07-10-2023 End: 10-09-2023 HIV 1+2 Ab [Presence] in Serum or Plasma by Immunoassay [facility] Work Phone: Comment on above: Expected: 07/10/2023 , Expires: 10/09/2023 Start: 07-10-2023 End: 10-09-2023 SYPHILIS TOTAL W/REFLEX [facility] Work Phone: Comment on above: Expected: 07/10/2023 , Expires: 10/09/2023 Start: 07-04-2023 [facility] Start: 04-10-2023 Influenza vaccination C [facility] Start: 04-01-2023 [facility] Start: 02-17-2023 Streptococcus pyogen es antigen assay Group A Streptococcus Rapid Screen Start: 08-10-2022 DEPRESSION ASSESSMENT DEPRESSION ASS ESSMENT [facility] Start: 04-15-2022 PAP TESTING PAP TESTING [facility] Start: 04-10-2022 Influenza vaccination INFLUENZA (#1) [facility] Start: 08-24-2019 Adult depression screening assessment DEPRESSION SCREENING [facility] Start: 2015 Hepatitis B Vaccine (1 of 3 - 19+ 3-dose series) Hepatitis B Vaccine (1 of 3 - 19+ 3-dose series) [facility] Start: 2015 Urine microalbumin profile [facility] Start: 2010 PEDS TO ADULT TRANSITION ANNUAL ASSESSMENT PEDS TO ADULT TRANSITION ANNUAL ASSESSMENT [facility] Start: 2008 PEDS TO ADULT TRANSITION INITIAL DISCUSSION PEDS TO ADULT TRANSITION INITIAL DISCUSSION [facility] Start: 2002 PNEUMOCOCCAL (1 - PCV) PNEUMOCOCCAL (1 - PCV) [facility] Start: 2002 Pneumococcal vaccination Pneumococcal Vaccine (1 - PCV) [facility] Start: 1996 COVID-19 VACCINE (#1) COVID-19 VACCI NE (#1) [facility] Start: 1996 HEPATITIS B (1 of 3 - 3-dose series) HEPATITIS B (1 of 3 - 3-dose series) [facility] Start: 1996 Hepatitis B Vaccine (1 of 3 - 3-dose series) Hepatitis B Vaccine (1 of 3 - 3-dose series) [facility] End: 04-07-2024 Breath hydrogen/methane test BREATH TEST FRUCTOSE Endoscopy Routine Bloating 1 Occurrences starting 04/07/2023 until 04/07/2024 [facility] Work Phone: Comment on above: 1 Occurrences starti ng 04/07/2023 until 04/07/2024 End: 04-07-2024 BREATH TEST LACTOSE BREATH TEST LACTOSE Endoscopy Routine Bloating 1 Occurrences starting 04/07/2023 until 04/07/2024 [facility] Work Phone: Comment on above: 1 Occurrences starti ng 04/07/2023 until 04/07/2024 BREATH TEST LACTOSE BREATH TEST LACTOSE Endoscopy Routine Bloating 06/10/2023 [facility] Work Phone: Chlamydia trachomatis+Neisseria gonorrhoeae DNA [Presence] in Unspecified specimen by GABRIEL with probe detection GONORRHEA/CHLAMYDIA NAAT Lab Routine Screen for STD (sexually transmitted disease) 07/10/2023 12:07 PM EST [facility] Work Phone: Chlamydia trachomatis+Neisseria gonorrhoeae DNA [Presence] in Unspecified specimen by GABRIEL with probe detection GONORRHEA/CHLAMYDIA NAAT Lab Routine Screening for STD (sexually transmitted disease) Ordered: 07/11/2024 [facility] Work Phone: Comment on above: Ordered: 07/11/2024 End: 04-07-2024 EGD DIAGNOSTIC EGD DIAGNOSTIC Endoscopy Routine Gastroesophageal reflux disease, unspecified whether esophagitis present Nausea and vomiting, unspecified vomiting type Dysphagia, unspecified type Abdominal pain, unspecified abdominal location 1 Occurrences starting 04/07/2023 until 04/07/2024 [facility] Work Phone: Comment on above: 1 Occurrences starti ng 04/07/2023 until 04/07/2024 End: 05-08-2024 Gastric emptying imaging study NM GASTRIC EMPTYING SOLID Radiology Routine Nausea 1 Occurrences starting 04/07/2023 until 05/08/2024 [facility] Work Phone: Comment on above: 1 Occurrences starti ng 04/07/2023 until 05/08/2024 PAP TEST PAP TEST Lab Amol carter Encounter for gynecological examination (general) (routine) without abnormal findings Screening for cervical cancer Encounter for screening for human papillomavirus (HPV) 07/10/2023 12:[address] [facility] Work Phone: Patient Education [facility] Work Phone: Patient referral [facility] Work Phone: End: 05-06-2024 Radiologic exam esophagus single contrast study XR ESOPHAGRAM Radiology Routine Nausea and vomiting, unspecified vomiting type Nausea 1 Occurrences starting 04/07/2023 until 05/06/2024 [facility] Work Phone: Comment on above: 1 Occurrences starti ng 04/07/2023 until 05/06/2024 TRICHOMONAS VAGINALI S NAAT TRICHOMONAS VAGINALIS NAAT Lab Routine Screen for STD (sexually transmitted disease) 07/10/2023 12:[address] [facility] Work Phone: TRICHOMONAS VAGINALI S NAAT TRICHOMONAS VAGINALIS NAAT Lab Routine Screening for STD (sexually transmitted disease) Ordered: 07/11/2024 [facility] Comment on above: Ordered: 07/11/2024 UA DIP, URINE (POC) UA DIP, URIN E (POC) Lab Routine Epigastric pain Ordered: 11/12/2022 [facility] Work Phone: Comment on above: Ordered: 11/12/2022 [facility] Immunizations Immunization Date Immunization Notes Care Provider Fa cility 10-08-2020 tetanus toxoid, redu gilbert diphtheria toxoid, and acellular pertussis vaccine, adsorbed 04-15-2019 Human Papillomavirus 9-valent vaccine Lilian Hay RN [facility] Work Phone: 05-24-2009 influenza virus vacc ine, unspecified formulation Vivian Gayle PA-C Work Phone: [facility] Payers Date Payer Category Payer Self-pay [id number] 2022 Unknown [id number] 2021 Unknown [id number] 2021 Unknown [id number] 2020 Medicaid [id number] 2020 Medicaid 0 [id number] 1996 Unknown [id number] 1996 Unknown [id number] 1996 Unknown [id number] 1996 Unknown [id number] Private Health Insurance [facility] [id number] Self-pay SELF PAY BY [employer] REQUEST [id number] Unknown [facility] COMMUNITY PLAN [id number] Unknown [id number] Unknown [id number] Unknown [id number] 462 Unknown [id number] 462 Unknown [id number] 462 Social History Date Type Detail Facility Start: 08-24-2018 End: 04-24-2023 Tobacco smoking status NHIS Smokes tobacco daily [facility] Start: 08-10-2014 End: 08-10-2020 History of tobacco use Cigarette Smoker [facility] Start: 08-24-2018 End: 07-18-2020 Cigarettes smoked current (pack per day) - Reported 1 [facility] Start: 08-24-2018 End: 07-10-2023 Tobacco use and exposure Smokeless tobacco non-user [facility] Start: 08-30-2021 End: 07-07-2023 Alcohol intake Current drinker of alcohol (finding) [facility] Start: 04-17-2017 History SDOH Alcohol Comment rarely [facility] Start: 1995 Sex Assigned At Not on file C [facility] Start: 02-17-2023 End: 09-07-2023 Tobacco smoking status MSIS Unknown if ever smoked Start: 03-28-2020 [facility] Start: 03-28-2020 Vapor [facility] Start: 1996 Sex Assigned At Female [facility] Start: 07-18-2020 End: 01-28-2023 Tobacco use panel [facility] Adult Depression Screening Assessment 2 [facility] Start: 04-07-2023 End: 07-11-2024 Tobacco smoking status NHIS Ex-smoker [facility] Start: 08-10-2014 End: 08-10-2020 History of tobacco use Current smoker [facility] Start: 04-07-2023 End: 07-11-2024 Tobacco use and exposure User of smokeless tobacco [facility] Start: 04-07-2023 Tobacco Comment [facility] Start: 07-10-2023 End: 07-11-2024 Alcohol intake Lifetime non-drinker (finding) [facility] Start: 08-12-2023 Tobacco Comment vapes [facility] NEGATED: Highlighted row Medical Equipment Procedure Code Equipment Code Equipment Original Text Equipment Identifier Dates Nail Innate 4.5m m Stainless Steel 40mm Intramedullary Anatomic Reduction - [id number] Start: 07-28-2023 Mental Status Date Assessment Result Facility 09-07-2023 Cognitive function Level Of Cons ciousness Awake;Alert;Appropriate;Follow s Commands Work Phone: Clinical Notes 04-05-2022 to 07-11-2024 Patient InstructionsAlexus Alvarez APRN.FIELD SERVICE MANAGER - 07/11/2024 8:13 AM ESTTelephone Encounter - [facility] ED - 10/19/2023 8:43 AM EDTPodJohanny perez APRN.FIELD SERVICE MANAGER - 10/13/2023 7:20 AM EST Note Date & Type Note Facility 07-11-2024 Instructions Alexus Alvarez APRN.FIELD SERVICE MANAGER - 07/11/2024 8:27 AM EST Images from the original note were not included. [facility] [address] [place], [place] [address] Fibrocystic breast change is a [...] good self breast awareness. Psychotherapy Services at [facility] Call Behavioral Health Access Line at [phone] to schedule Individual psychotherapy In-person or virtual Wait time for first evaluation may be 12 or more weeks. Wait list spots may be available. Due to the high volume of patients this option is recommended if you are looking for short term acute symptom coping strategies. 0-878-6-CAGB6GICH - [facility] Mental Health Hotline If you are in suicidal crisis, please call or text 2-110-385-TALK ( ) or visit the National Suicide Prevention Lifeline website. mchb.[facility].gov If you are in crisis, call 911 or go to your nearest Emergency Department Here are some links for wonderful Providers here in the community and surrounding areas. Do not hesitate to contact their offices, many are offering virtual visits during this time. Psychotherapy Services outside of [facility] Support International Online Provider Directory https://Medlanes.Appbyme/ - can assist in finding providers in your area that might be more extensive then the list below. [facility] [place], [place] [address] [place] [address] [place] [id number] [place] [address] [facility] [address] [place] [address] [facility] [address] [place] [id number] Aria Cruz MD [address] [place], [place] [id number] [facility] [address] [facility] [place] [address] [facility] [address] [place] [address] [facility] [place] / [place] [phone]/ [phone] Lilian Bates [address] [facility] [phone] [facility] [place] / Mar[place] [phone] [facility] [address] [place] [address]/ erie and daphne [phone] Dorina Dozier, GEORGE, CLC [facility] Workshops, telehealth and at home visits. [phone] [facility] [place] 20 locations [place], [place], [place], [place], [place], [place], [place], [facility], [place], [place], [place], [place], [place], [place], [facility], [place], [place] ,[facility], [place], [place],[facility], [facility], [place], [facility], [facility], [place] www.[facility] [phone] Psychotherapy resources outside of [facility] are listed below [facility] Web: https://www.Seamless/ Support International Online Provider Directory https://Leho/ [facility] https://Ask Ziggy/ [facility] Wellness Web: https://Cernium/ Rewarder for Effective Living Web: https://www.Review TrackerslivingVint Training/ LifeStance Web: https://Sonian.Appbyme/location/s hernandez/[place]/ [facility] Web: https://www.signaturehealthinc.or / [facility] Web: https://Fanium.org/ Recovery Resources Mental health and substance abuse help Web: https://www.9SLIDES.NewsCrafted & RESOURCES Support International Direct peer support and connection to professional resources Non-Emergency Helpline Phone: / Text: 395.464.6509 Web: https://www..net/ Online Provider Directory: https://Medlanes.Appbyme/ Online Support Meetings: https://www..net/get-he lp/vwh-gzccoo-mwyceii-meetings/ MELI Baby and Catalogue Clerk Services Web: https://Codingpeople/ inGenius Engineering Expert information on medication use during and Text: [phone] Web: https://FatTail/ NATIONAL REGISTRY FOR PSYCHIATRIC MEDICATIONS Currently studying the safety of antidepressants, ADHD medications and atypical antipsychotics taken during TO PARTICIPATE CALL TOLL-FREE: Web: https://[facility].org/re search/pregnancyregistry/ Support Groups: [facility]- Follow on facebook Baby Bistro support group led by [facility] department [facility] Mamas - Support Group [facility].org The POEM support group [phone] Www.poMindShare Networksonline.org Follow on facebook - POLEDY lizama chapter Online support meetings PSI https://www..net/get-he lp/kfd-qqwtfy-ixpjtcx-meetings/ [facility] mommy and me virtual support group 11:30-1pm Support for mothers and new babies and toddlers [place] childbirth education: Childbirth @cc.org or call [phone] CRISIS: CRISIS HOTLINE [phone], 911 or go to the nearest [facility] [phone] / [facility] [phone] https://www.[facility]denham hospitalrb.org Crisis text line text the word HOME to [address]20362 [facility] [address] sena [address] [facility] [address] www.Silentsoft.Appbyme Ann [place] clinical counseling [address] [address] www.Oxygen Biotherapeutics [phone] Holding space psychotherapy Angeline Stoner GROUP BURNER MACHINE COOK FROZEN DESSERT-S [address] [facility] www.Hobby [phone]/ [place] [phone] They all offer virtual. All work with trauma Support groups Online support meetings PSI https://www..net/get-he lp/ecc-eihzxq-wgedsik-meetings/ Here are the support groups they offer: Support of parents of 1 to 4 years old children POEM ( Outreach and Encouragement for Moms) offers free support for mothers experiencing depression, anxiety, and other mood and anxiety disorders. Masks are recommended but not required. No pre-registration required. Babies in arms welcome. meetings now take place on the and Thursday of each month Location: [facility] [address] [place] [address] Room 122 (library room) 7-8:00 p.m. When you enter the [facility] parking lot off of [address] the entrance door closest to our meeting room is on the front of the building toward the right. For those who are more comfortable with a virtual platform, POEM offers online support group options several days of the week. To register for an online group or to find out more about POEM, website at: https://mhaohio.org/get-help/[facility] islandghhp-vqswxj-gkltlb/poem-services/ offer a confidential helpline: private Facebook group is called KERRY Colon Here are the groups they offer: Traumatic childbirth resources: Http://pattch.org/ https://www.aldaMobGoldjames Large Business District Networking.Appbyme/ Name Location (s) Phone # (s) Services Website [facility] [address] [facility], [place], [place] - [phone]; [address] [facility] [address] [place], [place]- [phone] In-Person GROUPS INDIVIDUAL THERAPY MATERNAL-INFANT MENTAL HEALTH MEDICATION MANAGEMENT PLAY AND ART THERAPY TELETHERAPY https://www.Seamless/s ervices/ [facility] LIZAMA? [address] [place], [place] [address] ? [address], [address] [place], [place] [address] ? CLEMENTS [address] [place], [place] [address]? Grief Support Groups Individual Grief Counseling Spiritual Care Memorial Events https://ajo.[facility].org/grief-services [facility] [address] [place], [place] [address]; ; Email: Women's Mental Health; Couples Counseling; Trauma (EMDR); Stress Management; Mood and Anxiety Related Disorders- and much more https://www.Decoholic/ LifeStance Numerous as they have contract providers: access website to find specific providers near you Counseling including CBT and EMDR as well as many more modalities; Medication Management; Telehealth and In-Person https://Medikly/ [facility] [address] [place] [address]; [phone] Personal, Family and Group Therapy; Psychological Testing and Diagnosis; Medication Management; Life and Career Coaching; Psychoanalysis; Literacy Testing; Yoga and Meditation https://Cernium/ Fit Mind [place] [address] [facility] [address], [place] [address] [address] ; [address] [place] [address], [address] [place] [address]; Office # for both sites: Individual and Couples Counseling https://www.DocuSpeak.Appbyme/ paymentinsurance.html OCD & Anxiety [facility] [address] [facility], [address], [place] [address]; Specialize in Cognitive-Behavioral Therapy (CBT) for the treatment of anxiety disorders across the lifespan. TELEHEALTH ONLY. https://ocdandanxietycenteroSeiratherm/faqs [facility] [address] [place], [address] [place] [address] [facility] [place], [address] [place] [address] [place] [address] [place] [address] [place], [address], [id number] [place] [address] [place], [address] [place] [address] [place], [place], [id number] Transportation Services To minimize patient barriers, [facility] provides transportation services to patients who [...] assistance Substance abuse treatment Medication assisted treatment https://www.[facility].or g/mental-health/ [facility] OFFICE AT [facility] [address] [place] [address] [facility] OFFICE [address] [place] [address] [facility] OFFICE [address] [place] [address] TO OFFICE (at [facility]) [address] [place] [address] [facility] SYRINGE EXCHANGE PROGRAM & HIV SCREENING [address] [place] [address] [facility] [facility] EXCHANGE PROGRAM [address] [place] [address] Behavioral Health Urgent Care: [facility] Counseling Indvidual and Group Medication Management Case Management benefits applications housing assistance Substance abuse treatment Medication assisted treatment Employment Services/ Job Training https://thePianpianio.org/ Recovery Resources [address] [place], [place] [address]: P: [phone] [address] [facility] [address], [place] [address] P: [phone] Our services include: Addiction Mental Health Treatment Assessment Psychiatry Medical Care Employment Housing Drug and Alcohol Prevention HIV/AIDS Prevention https://www.recres.org/ [facility] [place] [address] [place] [id number] [address] [place], [place] [address] [place] [address] [place] [address] [place] [address] [facility] [address] [place] [address] [place] [address] [place] [address] TMS Therapy/ Counseling Psychocological Testing for ADHD Medication Management In-Person/ Telemedicine https://www.Good World Games/travon ents-depression Memory & Psychological services [address] [place] [address], [place] [address] Neuropsychological Testing For ADHD https://www.memoryandpsych.com/ [facility] Office [address] [place], [place] [address] [address] [id number] [address] [id number] Providing jiyn-bb-uztc and telehealth services. Adult Case Management Community Education and Prevention Employment Outpatient Treatment - Counseling & Psychotherapy Psychiatric Services http://www.ccc.org/ [facility] [place] [address] [place] [address] El[facility]) [address] [place] [address] Virtual Appointments! Now offering safe and convenient virtual client appointments to anyone in [place]! Individual Therapy Couples/Relationship Therapy Trauma/EMDR Therapy Art Therapy Play Therapy Superintendent Greens Support: Parenting Skills, Parent Child Interaction Therapy, Parent Infant Interaction Therapy Meditation Dietitian/Chief Fundraising Officer Services Group Therapy Yoga https://www.Picklive. Appbyme/ Erica Mac [phone] Private Practice: Telehealth Only Specializes in EMDR for Trauma None From 's Tobacco Cessation website: Our comprehensive smoking cessation [...] help you with your financial plan. Contact [phone] for more information. [place] Tobacco Program Visit https://[place].quitlogix.org/en-US/ or call 5-138-IQCI-NOW Calcium and Vitamin D Supplementation (from the [...] salmon and sardines and vegetables, such as Spanish cabbage, kale, and broccoli. Foods fortified with [...] acid, calcium carbonate is found in some llhj-brd-atsmcnx antacid products, such as Tums and Rolaids [...] by your doctor. documented in this encounter [facility] 07-11-2024 Note HNO ID: [id number] Author: ALEXUS ALVAREZ APRN.CNP Service: ? Author Type: Nurse Practitioner Type: Progress Notes Filed: 07/11/2024 08:49 Note Text: Paginator offered: Patient declinesMiriam Connell is a 29 [...] L1 SAB0 IAB0 Ectopic0 Multiple0 Live Births1 Music Grapher History LMP: 06/19/2023 (Approximate), Having periods Age at Menarche: Age at First : Age at Menopause: Music Grapher History Comments: Sexual Activity: Yes; Male Contraception: [...] discussed with the Patient or Patient's Authorized Mechanical Product Design Engineer. As applicable, any other physician, advance practice provider, medical student, or other health professional student that will be observing or involved in the sensitive examination for educational or training purposes was discussed with the Patient or Authorized Mechanical Product Design Engineer. The Patient or Authorized Mechanical Product Design Engineer has agreed to proceed with the sensitive [...] external genitalia normal, normal Bartholin's glands, urethra, Gay's glands, no vulvar lesions, no cervical lesions, [...] aggravating and r (more content not included)... [facility] [place] 07-11-2024 History of Present illness Narrative Paginator offered: Patient declines. Ko is a 29 [...] L1 SAB0 IAB0 Ectopic0 Multiple0 Live Births1 Music Grapher History LMP: 06/19/2023 (Approximate), Having periods Age at Menarche: Age at First : Age at Menopause: Music Grapher History Comments: Sexual Activity: Yes; Male Contraception: [...] discussed with the Patient or Patient's Authorized Mechanical Product Design Engineer. As applicable, any other physician, advance practice provider, medical student, or other health professional student that will be observing or involved in the sensitive examination for educational or training purposes was discussed with the Patient or Authorized Mechanical Product Design Engineer. The Patient or Authorized Mechanical Product Design Engineer has agreed to proceed with the sensitive [...] external genitalia normal, normal Bartholin's glands, urethra, Gay's glands, no vulvar lesions, no cervical lesions, [...] - Ko plans to follow up with [facility] for mental health care. Alexus Alvarez APRN.CNP documented in this encounter [facility] 10-26-2023 Note HNO ID: [id number] Author: MICHELLE ZIMMERMAN OT/L Service: ? Author [...] scheduled additional follow-up appointments. Michelle Zimmerman OT/[facility] 10-19-2023 Miscellaneous Notes Smoking Cessation Navigation Outcome of contact: Left Message Comments: A voicemail has been left for this patient regarding Tobacco Cessation support options. If this patient has any further questions they can email us at or call us at [phone]. eHealth Cabin Cleaning Supervisor/Smoking Cessation Navigator: [facility] documented in this encounter [facility] 10-13-2023 Miscellaneous Notes Called [facility] and left a message to cancel prescription Buspirone 7.5 mg because [facility]. Michelle Sommer LPN documented in this encounter [facility] 10-13-2023 History of Present illness Narrative 10/13/2023 [...] MEDICAL HISTORY Diagnosis Date Anxiety Bipolar disorder ([facility]) counseling center Broken leg 08/2014 [...] No history of dysuria, frequency or incontinence ARMORER TECHNICIAN: Negative for abnormal vaginal bleeding, abnormal vaginal [...] Abs Lymph 1.00 - 4.00 k/uL 1.90 Schuyler% % 5.5 Abs Schuyler <0.87 k/uL 0.50 Eosin% % 1.5 Abs [...] diet of 1000 mg/day for under 50, 7361-0617 mg/day for 50+ - Smoking cessation encouraged; [...] continue medications - follow-up with psychiatry at [facility] as recommended 5. Anxiety and [...] to treatment plan. documented in this encounter [facility] 10-13-2023 Note HNO ID: [id number] Author: JOHANNY STAUFFER APRN.CNP Service: ? Author [...] MEDICAL HISTORY Diagnosis Date Anxiety Bipolar disorder ([facility]) counseling center Broken leg 08/2014 [...] No history of dysuria, frequency or incontinence ARMORER TECHNICIAN: Negative for abnormal vaginal bleeding, abnormal vaginal [...] No excessive warmt (more content not included)... [facility] [place] 09-08-2023 Note HNO ID: [id number] Author: MILADIS NASSAR MD Service: ? Author Type: Physician Type: Progress Notes Filed: 09/08/2023 09:26 Note Text: Chief Complaint Patient presents with: ER F/U HPI Ko Galindo is a 28 year old female who presents here today for ER follow up. Patient evaluated at [facility] ED on 09/07 for copmlaint of lump on her left lower rib cage. Had apparently been evaluated at [facility] ER on 09/[address] [...] symptoms are worsening. Reviewed lab results from [facility] on 09/05 which showed low [...] MEDICAL HISTORY Diagnosis Date Anxiety Bipolar disorder ([facility]) counseling center Broken leg 08/2014 [...] rashes or lesions. (more content not included)... [facility] [place] 09-07-2023 Discharge summary Note Date/Time September 07, 2023 3:12pm [facility] Medical Records Department [address] [place] [address] Emergency Department Summary 09/07/23 MR#: [id number] Acct: [id number] Name: KO GALINDO Rep #:[id number] : [...] lower rib cage. She was seen at [facility] ER on Thursday and a CAT scan [...] problems, contact your Primary Care Provider. Call [employer] [facility] ([phone]) or report to the closest Emergency Room. Call 911 if necessary. 09/07/23 1512 <Electronically signed by Elias Quezada MD> Cosigner Signature (if applicable): CC: Dr. Charly Nassar MD ~ Signed Work Phone: 1(891) 902-163501-12-2024 NoteHNO ID: [id number] Author: MICHELLE ZIMMERMAN, OT/L Service: ? 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 Author Type: Physician Straight Truck Driver Type: Progress Notes Filed: 08/12/2023 10:58 AM Note Text: Ko Galindo underwent the following procedure on 07/28/23 1) Right fifth metacarpal open reduction internal fixation CPT 65680 The patient returns today for follow-up. The [...] Fracture reduction was maintained. Images posted to [facility] ASSESSMENT: Closed displaced fracture of [...] what was dictated, that are not fully corrected.[facility] Memorial [id number] NoteHNO ID: [id number] Author: Krystyna Yanez DO Service: ? Author [...] Mabel Portillo MD Staff anesthesiologist Phone : [phone] ANESTHESIOLOGY PROCEDURE NOTE Peripheral Nerve Block General [...] July 28, 2023 TIME: 3:07 PM CSN: [id number] [place] History and physical note* Kamaljit Gordon PA-C [...] 6 years. Quit 08/10/2020. 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 [facility] Miscellaneous Notes* Telephone Encounter - Janet Hurtado OCCA - 07/24/2023 1:34 PM EST Returned patients call. Was seen by Plastic in [facility] earlier today. According to visit notes, [...] , it is OK to leave message [phone] (home) [phone] (cell) Was an appointment scheduled: Closing statement: Fatoumata Lane [facility]-2023 NoteHNO ID: [id number] Author: Corinne Lake MA Service: ? Author Type: Medical Transport Specialist Type: Progress Notes Filed: 07/24/2023 9:08 AM Note Text: PT ASSESSMENT - CASTING ROOM Ko presents for bivalve of cast for surgery next week. Corinne Lake [facility]12-15-2023 History of Present illness Narrative* Kamaljit Gordon [...] 6 years. Quit 08/10/2020. 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 [facility] in [facility]12-[facility]-2023 NoteHNO ID: [id number] Author: Kamaljit Gordon PA-C Service: ? Author Type: Physician Straight Truck Driver Type: Progress Notes Filed: 07/24/2023 5:07 PM [...] 6 years. Quit 08/10/2020. 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 No PHYSICAL EXAMINATION: Vitals: [facility] 06/19/2023 Body Habitus:well nourished and [...] shifting of fracture CLINICAL IMPRESSION / ASSESSMENT: (S69.736G) Closed displaced fracture of shaft of fifth [...] inaccurate syntax or word sense that escaped review.[facility]12-13-2023 NoteHNO ID: [id number] Author: Simon Wayne RT(R) Service: Radiology Author [...] RT Maria Eugenia(R) July 22, 2023 11:52 [facility]12-08-2023 NoteHNO ID: [id number] Author: Birgit Turcios PA-C Service: ? Author Type: Physician Straight Truck Driver Type: Progress Notes Filed: 07/17/2023 3:42 PM [...] controlled with ibuprofen. 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 [facility] NoteHNO ID: [id number] Author: Janet Hurtado OCCA Service: ? Author Type: Medical Transport Specialist Type: Progress Notes Filed: 07/17/2023 3:38 PM Note Text: PT ASSESSMENT - CASTING ROOM Ko presents for Application of cast. Applied waterproof short arm boxer's cast: to Right arm Patient has been instructed in Care of cast.. [facility] History of Present illness Narrative* Janet Hurtado OCCA - 07/17/2023 3:37 PM EST PT ASSESSMENT - CASTING ROOM Ko presents for Application of cast. Applied waterproof short arm boxer's cast: to Right arm Patient has been instructed in Care of cast.. OSITO Hendrickson documented in [facility]12-[facility] History of Present illness Narrative* Birgit Turcios [...] controlled with ibuprofen. 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 Birgit Turcios PA-C documented in this encounterBu[facility]12-[facility]-2023 NoteHNO ID: [id number] Author: Nurys Denise RT(R) Service: Radiology Author [...] BY: RT Tyshawn(R) July 17, 2023 2:32 [facility]12-01-2023 Instructions* Patient Instructions* Alexus Alvarez APRN.CNP - 07/10/2023 11:52 AM EST From 's Tobacco Cessation website: Our comprehensive smoking cessation [...] us at your earliest convenience by calling [phone]. One of our friendly team members will be happy to help you with your financial plan. Contact [phone] for more information. [place] Tobacco Program Visit https://[place].quitlogix.org/en-US/ or call -NOW [...] good self breast awareness. documented in this encounterBu[facility]12-[facility]-2023 History of Present illness Narrative* Alexus Alvarez, JAKOB.FIELD SERVICE MANAGER - 07/10/2023 11:26 AM EST Paginator offered: Patient declinesMiriam Connell is a 28 [...] L1 SAB0 IAB0 Ectopic0 Multiple0 Live Births1 Music Grapher History LMP: 06/19/2023 (Approximate), Having periods Age at Menarche: Age at First : Age at Menopause: Music Grapher History Comments: Sexual Activity: Yes; Male Contraception: None PAST MEDICAL HISTORY Diagnosis Date Anxiety Bipolar disorder ([facility]) counseling center Broken leg 08/2014 [...] external genitalia normal, normal Bartholin's glands, urethra, Gay's glands, no vulvar lesions, no cervical lesions, [...] done Alexus Alvarez APRN.CNP documented in this encounterBu[facility]11-[facility]23 History of Present illness Narrative* Miladis Nassar [...] and bipolar disorder which is managed by [facility]. Patient evaluated at [facility] ED on 06/30 for c/o SOB, [...] that her last OV with psychiatry at [facility] was 1 week ago. States that they [...] which included preparing to see the patient, xnqt-tb-desm patient care, completing clinical documentation, obtaining and/or reviewing separately obtained history, performing a medically appropriate examination, counseling and educating the pat ient/family/caregiver, and ordering medications, tests, or procedures. Miladis Nassar MD documented in this encounterBucyrus [facility]11-21-2023 Discharge summary Author Devyn Ramos June 30, 2023 3:04pm Note Date/Time June 30, 2023 2:54pm [facility] Medical Records Department [address] [place] [address] Emergency Department Summary 06/30/23 MR#: [id number] Acct: [id number] Name: KO GALINDO Rep #:[id number] : 1995 27 From: Devyn Ramos MD PCP: Dr. 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 Call [facility] ([phone]) or report to the closest Emergency Room. Call 911 if necessary. 06/30/23 1504 <Electronically signed by Devyn Ramos MD> Cosigner Signature (if applicable): CC: Dr. Charly Nassar MD ~ Signed Work Phone: 1(688) 281-111411-21-2023 Miscellaneous Notes* Telephone Encounter - Fela [place] [...] finished las menstrual cycle. Protocols used: Chest [id number]-[id number]-TS documented in this encounterBucyrus [facility]11-02-2023 Miscellaneous Notes* Telephone Encounter - Sahara Hansen LPN - 06/11/2023 10:14 AM EDT Spoke with Ko Galindo on June 11, 2023.. Informed Ms. Galindo of results-Negative / and instructions to establish care with New GI provider. Ms. Ko Galindo verbalized understanding gave her scheduling number [phone] and transferred her to scheduling for an appointment. Sahara Floyd LPN documented in this encounterBucyrus [facility] Hospital11-01-2023 History of Present illness Narrative* Jose Juan Rosas LPN - 06/10/2023 2:00 PM EDT Name: Ok Avinash Mateo CCF#: [id number] Date: 06/10/2023 LACTOSE - BREATH HYDROGEN & [...] .Jose Juan Rosas LPN documented in this encounterBucyrus [facility] Hospital09-25-2023 History of Present illness Narrative* Junie Shen [...] 04, 2023 9:56 AM documented in this encounterBucyrus Community Hospital09-15-2023 Nurse Note* Laila Bryan RN - 04/24/2023 9:33 AM EDT Abdomen soft non-distended. Will continue to monitor. documented in this encounterBucyrus Community Hospital09-15-2023 History and physical note * Cheryl Alfaro [...] stuck under. 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 Patient evaluated at [facility] ED on 04/01 for complaint of [...] stuck under. 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 Patient evaluated at [facility] ED on 04/01 for complaint of [...] no further questions. . documented in this encounterBucyrus Community Hospital09-07-2023 History of Present illness Narrative* Vivian Gayle [...] stuck under. 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 Patient evaluated at [facility] ED on 04/01 for complaint of [...] Alfaro for upper endoscopy and colonoscopy, with [facility], 04/12/19. The procedure report has been reviewed [...] MEDICAL HISTORY Diagnosis Date Anxiety Bipolar disorder ([facility]) counseling center Broken leg 08/2014 [...] which included preparing to see the patient, [id number] patient care, completing clinical documentation, obtaining and/or reviewing separately obtained history, performing a medically appropriate examination, counseling and educating the patient/family/caregiver, ordering medications, tests, or procedures, communicating results tothe patient/family/caregiver, and care coordination (not separately reported). Vivian Gayle PA-C Neurogastroenterology Section Department of Gastroenterology April 07, 2023 documented in this encounterBucyrus Community Hospital08-29-2023 Instructions* Patient Instructions* Vivian Gayle PA-C - [...] foods: Caffeine (regular coffee, regular tea, chocolate) Bourbon fruits/juices Carbonated beverages Alcohol Mints (peppermint, spearmint) [...] biscuits, doughnuts, sweet rolls, muffins, granola, pizza, Gambian toast Desserts Evelio food cake, sponge cake, [...] juices (any except those in the right column)[place], lemon, osage, tangerine, pineapple, grapefruit Meats and meat substitutes [...] pasta, pasta with low-fat cream sauce, rice Gambian-fried potatoes, risotto, potato chips, pastas served with [...] mint-flavored coffee and/or teas, alcoholic beverages Copyright 7468-5024 [facility]. All rights reserved. This information is provided by the [facility] and is not intended to replace the medical advice of your doctor or health care provider. Please consult your health care provider for advice about a specific medical condition. For additional health information, please contact the Center for Consumer Health Information at the [facility] or toll-free extension [phone]. If you prefer, you may visit [email or web address] or [email or web address]. This document was last reviewed on: 2018 index#53117 Discussed the etiology of GERD with patient. [...] beverages, and avoidance of smoking. Gastroparesis diet: [email or web address]?la=en documented in this encounterBucyrus Community Hospital08-25-2023 History of Present illness Narrative* Miladis Nassar MD - 04/03/2023 8:03 AM EDT Chief Complaint Patient presents with: [facility] F/U [facility] Avinash Galindo is a 27 year old female who presents here today for ER Follow Up.. Patient evaluated at [facility] ED on 04/01 for complaint of [...] MEDICAL HISTORY Diagnosis Date Anxiety Bipolar disorder ([facility]) counseling center Broken leg 08/2014 [...] application to affected area twice daily. Location: [facility] (Patient not taking: Reported on 04/15/2019 ) [...] above. Miladis Nassar MD documented in this encounterBucyrus Community Hospital08-23-2023 Miscellaneous Notes* Telephone Encounter - Miladis Nassar [...] have family drive her. documented in this encounterBucyrus Community Hospital06-22-2023 Miscellaneous Notes* Telephone Encounter - Sheba Wilhelm Ma - 01/29/2023 8:19 AM EDT Pt wrote into office via [employer] asking about lab results and asking about next step. I notified her of labs/US results with Provider recommendation via [employer]. Sheba Wilhelm Ma * Telephone Encounter - [...] you. Melida Dick APRN.CNP documented in this encounterBucyrus Community Hospital06-21-2023 History of Present illness Narrative* Gracy Choi [...] 28, 2023 11:40 AM documented in this encounterBucyrus Community Hospital06-21-2023 Instructions* Patient Instructions* Melida Dick APRN.CNP - 01/28/2023 10:49 AM EDT Get labs completed Schedule appt for ultrasound May continue with nausea medication as needed. Stay well hydrated. Try to limit fats in diet until results are back. Follow up pending test results. documented in this encounterBucyrus Community Hospital06-21-2023 History of Present illness Narrative* Melida Dick [...] application to affected area twice daily. Location: [facility] (Patient not taking: Reported on 04/15/2019 ) [...] APRN.CNP This note was partially generated using Vettro voice recognition system. Note was reviewed for accuracy. There may be minor misspellings or grammar miscues with Vettro voice recognition. documented in this encounterBucyrus Community Hospital04-05-2023 History of Present illness Narrative* Miladis Nassar [...] application to affected area twice daily. Location: [facility] (Patient not taking: Reported on 04/15/2019 ) [...] safety. Miladis Nassar MD documented in this encounterBucyrus Community Hospital08-27-2022 Miscellaneous Notes* Telephone Encounter - Lilian Hay [...] negative, per pt Protocols used: High Blood Qmdmlggq-ECXBR-SM, Knee Wxondeem-CDXOC-VR [facility]* Diagnosis Epigastric pain- Primary Abdominal pain, epigastric Bulimia nervosa documented in this encounter [facility] note* Diagnosis RUQ pain- Primary Abdominal pain, right upper quadrant Nausea and vomiting, unspecified vomiting type documented in this encounter [facility] noteNo assessment information availableWChildren's Hospital of [facility] Work Phone: Evaluation note* Diagnosis Nausea and vomiting, unspecified vomiting type- Primary Hematemesis with nausea Gastroesophageal reflux disease, unspecified whether esophagitis present Dysphagia, unspecified type Odynophagia Dysphagia, unspecified Epigastric pain Abdominal pain, epigastric documented in this encounter [facility] note* Diagnosis Abdominal pain, unspecified abdominal location- Primary Gastroesophageal reflux disease, unspecified whether esophagitis present Nausea and vomiting, unspecified vomiting type Hematemesis with nausea Dysphagia, unspecified type Odynophagia Dysphagia, unspecified Bloating Flatulence, eructation, and gas pain Nausea Nausea alone Heartburn- Primary documented in this encounter [facility] note* Diagnosis Nausea and vomiting, unspecified vomiting type Nausea Nausea alone documented in this encounter [facility] note* Diagnosis Bloating Flatulence, eructation, and gas pain documented in this encounter [facility] note* Diagnosis RUQ pain Abdominal pain, right upper quadrant documented in this encounter [facility] note* Diagnosis Heartburn- Primary Gastroesophageal reflux disease, unspecified whether esophagitis present Nausea and vomiting, unspecified vomiting type Dysphagia, unspecified type Abdominal pain, unspecified abdominal location documented in this encounter [facility] note* Diagnosis Posterior chest pain- Primary Other chest pain Anxiety Anxiety state, unspecified Bipolar affective disorder, current episode mixed, current episode severity unspecified ([facility]) Nicotine abuse Tobacco use disorder documented in [...] bleeding) Postcoital bleeding [facility] Diagnosis Right hand pain- Primary Pain in limb Closed displaced fracture of shaft of fifth metacarpal bone of right hand, initial encounter [facility]* Diagnosis Right hand pain- Primary Pain in limb Closed displaced fracture of shaft of fifth metacarpal bone of right hand, initial encounter [facility] Diagnosis Closed displaced fracture of shaft of fifth metacarpal bone of right hand, initial encounter- Primary Displaced fracture of shaft of fifth metacarpal bone, right hand, initial encounter for closed fracture [facility]* Diagnosis Routine physical examination- Primary Routine general medical examination at a health care facility Vaping nicotine dependence, tobacco product Cellulitis of skin Cellulitis and abscess of unspecified site Bipolar affective disorder, current episode mixed, current episode severity unspecified (HCC) Anxiety and depression Dysthymic disorder documented in this encounter [facility] HospitalEval[facility] note* Diagnosis Encounter for gynecological examination (general) (routine) without abnormal findings- Primary Screening for STD (sexually transmitted disease) Screening examination for venereal disease Fibrocystic breast changes of both breasts [facility] Additional Instructions I do not specifically find any abnormality on your chest wall. Motrin for pain. Follow-up with your doctor if not improving. Work Phone: Reason for referral (narrative)* Diagnostic Procedure Only (Routine) - Pending Review Specialty Diagnoses / Procedures Referred By Helen lopez Referred To Contact MOLECULAR & FUNCTIONAL IMAGING Diagnoses Nausea Procedures NM GASTRIC EMPTYING SOLID GASTRIC EMPTYING STUDY Vivian Gayle PA-C [address] [place], [place] [id number] Molecular & Functional Imaging [address] [place] [address] Referral ID Status Reason Start Date Expiration Date Visits Requested Visits Authorized [id number] Pending Review Auto-Generat ed Referral 04/07/2023 05/06/2024 1 1 * Outpatient Procedure (Routine) - Authorized Specialty Diagnoses / Procedures Referred By Helen lopez Referred To Contact [facility] Diagnoses Bloating Procedures BREATH TEST LACTOSE BREATH HYDROGEN/METHANE TEST Vivian Gayle PA-C [address] [id number] [facility] [address] [place] [address] Referral ID Status Reason Start Date Expiration Date Visits Requested Visits Authorized [id number] Authorized Auto-Generat ed Referral 04/07/2023 04/07/2024 1 1 * Diagnostic Procedure Only (Routine) - Authorized Specialty Diagnoses / Procedures Referred By Helen lopez Referred To Contact XR IMAGING Diagnoses Nausea and vomiting, unspecified vomiting type Nausea Procedures XR ESOPHAGRAM RADIOLOGIC EXAM ESOPHAGUS SINGLE CONTRAST STUDY Vivian Gayle PA-C [address] [id number] Xr Imaging [facility] Referral ID Status Reason Start Date Expiration Date Visits Requested Visits Authorized [id number] Authorized Auto-Generat ed Referral 04/07/2023 05/06/2024 1 1 * Outpatient Procedure (Routine) - Authorized Specialty Diagnoses / Procedures Referred By Helen lopez Referred To Contact [facility] Diagnoses Gastroesophageal reflux disease, unspecified whether esophagitis present Nausea and vomiting, unspecified vomiting type Dysphagia, unspecified type Abdominal pain, unspecified abdominal location Procedures EGD DIAGNOSTIC ESOPHAGOGASTRODUODENOSCOPY TRANSORAL DIAGNOSTIC Vivian Gayle PA-C [address] [address] Cheryl Alfaro MD [address] [place] [address] Referral ID Status Reason Start Date Expiration Date Visits Requested Visits Authorized [id number] Authorized Auto-Generat ed Referral 04/20/2023 08/09/2023 1 1 [facility] for referral (narrative)* Diagnostic Procedure Only (Routine) - Closed Specialty Diagnoses / Procedures Referred By Helen t Referred To Contact XR IMAGING Diagnoses Nausea and vomiting, unspecified vomiting type Nausea Procedures XR ESOPHAGRAM RADIOLOGIC EXAM ESOPHAGUS SINGLE CONTRAST STUDY Vivian Gayle PA-C [address] [address] [place] [address] Referral ID Status Reason Start Date Expiration Date V isits Requested Visits Authorized [id number] Closed Auto-Generate d Referral 04/07/2023 05/06/2024 1 1 [facility] for referral (narrative)* Diagnostic Procedure Only (Urgent) - Closed Specialty Diagnoses / Procedures Referred By Helen lopez Referred To Contact US IMAGING Diagnoses RUQ pain Procedures US ABD RIGHT UPPER QUADRANT US ABDOMINAL REAL TIME W/IMAGE LIMITED Melida Dick APRN.CNP [address] [place] [address] [place] [address] Referral ID Status Reason Start Date Expiration Date V isits Requested Visits Authorized [id number] Closed Auto-Generate d Referral 01/28/2023 02/27/2024 1 1 [facility] for referral (narrative)* Outpatient Procedure (Routine) - Closed Specialty Diagnoses / Procedures Referred By Helen t Referred To Contact [facility] Diagnoses Gastroesophageal reflux disease, unspecified whether esophagitis present Nausea and vomiting, unspecified vomiting type Dysphagia, unspecified type Abdominal pain, unspecified abdominal location Procedures EGD DIAGNOSTIC ESOPHAGOGASTRODUODENOSCOPY TRANSORAL DIAGNOSTIC Vivian Gyale PA-C [address] [address] Cheryl Alfaro MD [address] [place] [address] Referral ID Status Reason Start Date Expiration Date V isits Requested Visits Authorized [id number] Closed Auto-Generate d Referral 04/20/2023 08/09/2023 1 1 [facility] for referral (narrative)* Diagnostic Procedure Only (Routine) - Closed Specialty Diagnoses / Procedures Referred By Helen lopez Referred To Contact XR IMAGING Diagnoses Right hand pain Procedures XR HAND GENERAL 3V PA/LAT/OBL RIGHT RADEX HAND MINIMUM 3 VIEWS Birgit Turcios PA-C [address] [place] [address] [place] [address] Referral ID Status Reason Start Date Expiration Date V isits Requested Visits Authorized [id number] Closed Auto-Generate d Referral 07/16/2023 08/14/2024 1 1 [facility] for visit Narrative* Outpatient Procedure (Routine) - Closed Specialty Diagnoses / Procedures Referred By Helen lopez Referred To Contact [facility] Diagnoses Gastroesophageal reflux disease, unspecified whether esophagitis present Nausea and vomiting, unspecified vomiting type Dysphagia, unspecified type Abdominal pain, unspecified abdominal location Procedures EGD DIAGNOSTIC ESOPHAGOGASTRODUODENOSCOPY TRANSORAL DIAGNOSTIC Vivian Gayle PA-C [address] [address] Cheryl Alfaro MD [address] [place] [address] Referral ID Status Reason Start Date Expiration Date V isits Requested Visits Authorized [id number] Closed Auto-Generate d Referral 04/20/2023 08/09/2023 1 1 [facility] Summary Purpose Family History No Family [...] No February 17, 2023 6:48pm Power of Rat Breeder No February 17 6:48pm Advance Directive Response Recorded Date/ Time Living Will No April 01 11:26am Power of Rat Breeder No April 01 023 11:26am Advance Directive Response Recorded Date/ Time Living Will No June 30 023 1:54pm Power of Rat Breeder No June 30, 2023 1:54pm Advance Directive Response Recorded Date/ Time Living Will No September 07 3:47pm Power of Rat Breeder No September 07, 2023 3:47pm Reason for Referral Specialty Diagnoses / Procedures Referred By Contac t Referred To Contact General Surgery Diagnoses RUQ pain Procedures CONSULT TO GENERAL SURGERY OFFICE/OUTPATIENT [facility] 60-74 MINUTES Melida Dick, SEWER INSPECTOR.FIELD SERVICE MANAGER [address] [place] [address] Referral ID Status Reason Start Date Expiration Date Visits Requested Visits Authorized [id number] Authorized PCP Requested Referral 01/28/2023 01/28/2024 1 1 Specialty Diagnoses / Procedures Referred By Contac t Referred To Contact US IMAGING Diagnoses RUQ pain Procedures US ABD RIGHT UPPER QUADRANT US ABDOMINAL REAL TIME W/IMAGE LIMITED Melida Dick, SEWER INSPECTOR.FIELD SERVICE MANAGER [address] [place] [address] Us Imaging Referral ID Status Reason Start Date Expiration Date V isits Requested Visits Authorized [id number] Closed Auto-Generate d Referral 01/28/2023 02/27/2024 1 1 Specialty Diagnoses / Procedures Referred By Contac t Referred To Contact Gastroenterology Diagnoses Gastroesophageal reflux disease, unspecified whether esophagitis present Nausea and vomiting, unspecified vomiting type Hematemesis with nausea Dysphagia, unspecified type Odynophagia Procedures CONSULT TO GASTROENTEROLOGY OFFICE/OUTPATIENT [facility] 60-74 MINUTES Miladis Nassar MD [address] [place] [address] Referral ID Status Reason Start Date Expiration Date Visits Requested Visits Authorized [id number] Authorized PCP Requested Referral 04/03/2023 04/02/2024 1 1 Chief Complaint and Reason for Visit Chief Complaint SORE THROAT Chief Complaint SORE THROAT N/V Chief Complaint N/V sob Chief Complaint sob ANXIETY LUMP ON RIB CAGE Medications Administered Section Inactive Administered Medications - up to 3 most recent administrations Medication Order MAR Action Action Date Dose Rate Site benzocaine 20% 1 [place] (TOPEX) 1 [place], TOPICAL, DIRECTED, Starting on Thu04/24/23 at 0930, [...] DATE CREATED AUTHOR AUTHOR'S ORGANIZ ATION 03/04/2020 [facility] DATE CREATED AUTHOR AUTHOR'S ORGANIZ ATION 04/09/2022 [facility] DATE CREATED AUTHOR AUTHOR'S ORGANIZ ATION 07/19/2023 [facility] DATE CREATED AUTHOR AUTHOR'S ORGANIZ ATION 08/13/2023 [facility] DATE CREATED AUTHOR AUTHOR'S ORGANIZ ATION 09/06/2023 [facility] DATE CREATED AUTHOR AUTHOR'S ORGANIZ ATION 09/11/2023 [facility] DATE CREATED AUTHOR AUTHOR'S ORGANIZ ATION 10/27/2023 [facility] DATE CREATED AUTHOR AUTHOR'S ORGANIZ ATION 07/13/2024 [facility] Source Comments (unrecognize d section and content) In the event this informatio n is protected by the Federal Confidentiality of Alcohol and Drug Abuse Patient Records regulations: The Federal rules restrict any use of the information to criminally investigate or prosecute any alcohol or drug abuse patient.[facility] HospitalIn the event this information is protected by the Federal Confidentiality of Alcohol and Drug Abuse Patient Records regulations: The Federal rules restrict any use of the information to criminally investigate or prosecute any alcohol or drug abuse patient.[facility] HospitalIn the event this information is protected by the Federal Confidentiality of Alcohol and Drug Abuse Patient Records regulations: The Federal rules restrict any use of the information to criminally investigate or prosecute any alcohol or drug abuse patient.[facility] Hospital[facility] the event this information is protected by the Federal Confidentiality of Alcohol and Drug Abuse Patient Records regulations: The Federal rules restrict any use of the information to criminally investigate or prosecute any alcohol or drug abuse patient.[facility] HospitalIn the event this information is protected by the Federal Confidentiality of Alcohol and Drug Abuse Patient Records regulations: The Federal rules restrict any use of the information to criminally investigate or prosecute any alcohol or drug abuse patient.[facility] HospitalIn the event this information is protected by the Federal Confidentiality of Alcohol and Drug Abuse Patient Records regulations: The Federal rules restrict any use of the information to criminally investigate or prosecute any alcohol or drug abuse patient.[facility] HospitalIn the event this information is protected by the Federal Confidentiality of Alcohol and Drug Abuse Patient Records regulations: The Federal rules restrict any use of the information to criminally investigate or prosecute any alcohol or drug abuse patient.[facility] HospitalIn the event this information is protected by the Federal Confidentiality of Alcohol and Drug Abuse Patient Records regulations: The Federal rules restrict any use of the information to criminally investigate or prosecute any alcohol or drug abuse patient.[facility] HospitalIn the event this information is protected by the Federal Confidentiality of Alcohol and Drug Abuse Patient Records regulations: The Federal rules restrict any use of the information to criminally investigate or prosecute any alcohol or drug abuse patient.[facility] HospitalIn the event this information is protected by the Federal Confidentiality of Alcohol and Drug Abuse Patient Records regulations: The Federal rules restrict any use of the information to criminally investigate or prosecute any alcohol or drug abuse patient.[facility] HospitalIn the event this information is protected by the Federal Confidentiality of Alcohol and Drug Abuse Patient Records regulations: The Federal rules restrict any use of the information to criminally investigate or prosecute any alcohol or drug abuse patient.[facility] HospitalIn the event this information is protected by the Federal Confidentiality of Alcohol and Drug Abuse Patient Records regulations: The Federal rules restrict any use of the information to criminally investigate or prosecute any alcohol or drug abuse patient.[facility] HospitalIn the event this information is protected by the Federal Confidentiality of Alcohol and Drug Abuse Patient Records regulations: The Federal rules restrict any use of the information to criminally investigate or prosecute any alcohol or drug abuse patient.[facility] HospitalIn the event this information is protected by the Federal Confidentiality of Alcohol and Drug Abuse Patient Records regulations: The Federal rules restrict any use of the information to criminally investigate or prosecute any alcohol or drug abuse patient.[facility] the event this information is protected by the Federal Confidentiality of Alcohol and Drug Abuse Patient Records regulations: The Federal rules restrict any use of the information to criminally investigate or prosecute any alcohol or drug abuse patient.[facility] HospitalIn the event this information is protected by the Federal Confidentiality of Alcohol and Drug Abuse Patient Records regulations: The Federal rules restrict any use of the information to criminally investigate or prosecute any alcohol or drug abuse patient.[facility] [facility] HospitalIn the event this information is protected by the Federal Confidentiality of Alcohol and Drug Abuse Patient Records regulations: The Federal rules restrict any use of the information to criminally investigate or prosecute any alcohol or drug abuse patient.[facility] the event this information is protected by the Federal Confidentiality of Alcohol and Drug Abuse Patient Records regulations: The Federal rules restrict any use of the information to criminally investigate or prosecute any alcohol or drug abuse patient.[facility] the event this information is protected by the Federal Confidentiality of Alcohol and Drug Abuse Patient Records regulations: The Federal rules restrict any use of the information to criminally investigate or prosecute any alcohol or drug abuse patient.[facility] the event this information is protected by the Federal Confidentiality of Alcohol and Drug Abuse Patient Records regulations: The Federal rules restrict any use of the information to criminally investigate or prosecute any alcohol or drug abuse patient.[facility] the event this information is protected by the Federal Confidentiality of Alcohol and Drug Abuse Patient Records regulations: The Federal rules restrict any use of the information to criminally investigate or prosecute any alcohol or drug abuse patient.[facility] the event this information is protected by the Federal Confidentiality of Alcohol and Drug Abuse Patient Records regulations: The Federal rules restrict any use of the information to criminally investigate or prosecute any alcohol or drug abuse patient.[facility] the event this information is protected by the Federal Confidentiality of Alcohol and Drug Abuse Patient Records regulations: The Federal rules restrict any use of the information to criminally investigate or prosecute any alcohol or drug abuse patient.[facility] Reason for Visit (unrecogniz ed section and content) Reason Comments [facility] Specialty Diagnoses / Procedures Referred By Helen lopez Referred To Contact [facility] Diagnoses Closed displaced fracture of shaft of fifth metacarpal bone of right hand, initial encounter Post-operative state Procedures CONSULT TO PHILOSOPHY INSTRUCTOR OCCUPATIONAL THERAPY EVAL HIGH COMPLEX 60 MINS Kamaljit Gordon PA-C [address] [place] [address] [facility] [address] [place] [address] Referral ID Status Reason Start Date Expiration Date Visits Requested Visits Authorized [id number] Authorized Financial Clearance Required - Self Pay [...] type Odynophagia Procedures CONSULT TO GASTROENTEROLOGY OFFICE/OUTPATIENT [facility] 60-74 MINUTES Miladis Nassar MD [address] [place] [address] Referral ID Status Reason Start Date Expiration Date V isits Requested Visits Authorized [id number] Closed PCP Requested Referral 04/03/2023 04/02/2024 1 1 Reason Comments Radio [facility] Main [facility] Specialty Diagnoses / Procedures Referred By Contac t Referred To Contact XR IMAGING Diagnoses Nausea and vomiting, unspecified vomiting type Nausea Procedures XR ESOPHAGRAM RADIOLOGIC EXAM ESOPHAGUS SINGLE CONTRAST STUDY Vivian Gayle PA-C [address] [address] X[facility] [place] [address] Referral ID Status Reason Start Date Expiration Date V isits Requested Visits Authorized [id number] Closed Auto-Generate d Referral 04/07/2023 05/06/2024 1 1 Reason Onset Date Comments Procedure 06/10/2023 Breath Test - La ctose Specialty Diagnoses / Procedures Referred By Helen t Referred To Contact [facility] Diagnoses Bloating Procedures BREATH TEST LACTOSE BREATH HYDROGEN/METHANE TEST Vivian Gayle PA-C [address] [address] [facility] [address] [place] [address] Referral ID Status Reason Start Date Expiration Date V isits Requested Visits Authorized [id number] Closed Auto-Generate d Referral 04/07/2023 04/07/2024 1 1 Reason Comments Radiology US Specialty Diagnoses / Procedures Referred By Carmellaac t Referred To Contact US IM[facility] Diagnoses RUQ pain Procedures US ABD RIGHT UPPER QUADRANT US ABDOMINAL REAL TIME W/IMAGE LIMITED Melida Dick, JAK[employer] SERV[employer] MANAGER [address] [place] [address] [place] [address] Referral ID Status Reason Start Date Expiration Date V isits Requested Visits Authorized [id number] Closed Auto-Generate d Referral 01/28/2023 02/27/2024 1 [...] Care Teams (unrecognized sec tion and content) Dual Rate Supervisor Relationship Specialty Start Date End Date Miladis Nassar MD [address] [place], [place] [id number] PCP - General Family Practice 04/17/17 Dual Rate Supervisor Relationship Specialty Start Date End Date Miladis Nassar MD [address] [place], [place] [id number] PCP - General Family Medicine 04/17/17 Dual Rate Supervisor Relationship Specialty Start Date End Date Miladis Nassar MD [address] [place], [place] [id number] PCP - General Family Medicine 04/17/17 Dual Rate Supervisor Relationship Specialty Start Date End Date Miladis Nassar MD [address] [place], [place] [id number] PCP - General Family Medicine 04/17/17 Team [...] Dr. Rishi Rocha DO Emergency Provider Active Dual Rate Supervisor Relationship Specialty Start Date End Date Miladis Nassar MD [address] [place] [address] PCP - General Family Medicine 04/17/17 Dual Rate Supervisor Relationship Specialty Start Date End Date Miladis Nassar MD [address] [place] [address] PCP - General Family Medicine 04/17/17 Dual Rate Supervisor Relationship Specialty Start Date End Date Miladis Nassar MD [address] [place] [address] PCP - General Family Medicine 04/17/17 Dual Rate Supervisor Relationship Specialty Start Date End Date Miladis Nassar MD [address] [place] [address] PCP - General Family Medicine 04/17/17 Dual Rate Supervisor Relationship Specialty Start Date End Date Miladis Nassar MD [address] [place] [address] PCP - General Family Medicine 04/17/17 Dual Rate Supervisor Relationship Specialty Start Date End Date Miladis Nassar MD [address] [place] [address] PCP - General Family Medicine 04/17/17 Dual Rate Supervisor Relationship Specialty Start Date End Date Mialdis Nassar MD [address] [place] [address] PCP - General Family Medicine 04/17/17 Dual Rate Supervisor Relationship Specialty Start Date End Date Miladis Nassar MD [address] [place] [address] PCP - General Family Medicine 04/17/17 Team Status: Inactive Member Role Status Dates Dr. Charly Nassar MD Primary Care Provider Acti ve Dr. Devyn Ramos MD Emergency Provider Active Team Status: Inactive Member Role Status Dates Dr. Charly Nassar MD Primary Care Provider Acti ve Dr. Rishi Rocha DO Attending Provider, Emergency P david Active Dual Rate Supervisor Relationship Specialty Start Date End Date Miladis Nassar MD [address] [place] [address] PCP - General Family Medicine 04/17/17 Dual Rate Supervisor Relationship Specialty Start Date End Date Miladis Nassar MD [address] [place] [address] PCP - General Family Medicine 04/17/17 Dual Rate Supervisor Relationship Specialty Start Date End Date Miladis Nassar MD [address] [place] [address] PCP - General Family Medicine 04/17/17 Dual Rate Supervisor Relationship Specialty Start Date End Date Miladis Nassar MD [address] [place] [address] PCP - General Family Medicine 04/17/17 Dual Rate Supervisor Relationship Specialty Start Date End Date Miladis Nassar MD [address] [place] [address] PCP - General Family Medicine 04/17/17 Team [...] DO Attending Provider, Emergency Pr ovider Active Dual Rate Supervisor Relationship Specialty Start Date End Date Miladis Nassar MD [address] [place], [place] [id number] PCP - General Family Medicine 04/17/17 Dual Rate Supervisor Relationship Specialty Start Date End Date Miladis Nassar MD [address] [place], [place] [id number] PCP - General Family Medicine 04/17/17 Goals [...] BE BASED ON THE PRIMARY CLINICAL RECORDS. [employer] provides no warranty or guarantee of the accuracy or completeness of information in this document.
[2025-03-20 22:30] VITALS: BMI 22.2
[2025-03-20 22:40] VITALS: BP 117/79; PULSE 83; RESP 17; TEMP 36.1; O2SAT 98
[2025-03-20 23:07] LABS: Magnesium 2.1 mg/dL (1.5-2.2)
[2025-03-20] MEDS: 0.9% Saline Lock 10 ML Syringe IV (23:14)
[2025-03-20] MEDS: 0.9% Normal Saline (1000mL) 1,000 ML 150 ML IV (23:14)
[2025-03-20] MEDS: proMETHazine 25 MG/ML Syringe 12.5 MG IM (23:18)
[2025-03-20] MEDS: Scopolamine 1mg/72hr Patch 1 PATCH TD (23:22)
[2025-03-20] MEDS: Pantoprazole Sodium 40 MG in 0.9% Normal Saline (100mL MB+) 100 ML 330 MG IV (23:26)
[2025-03-21] MEDS: Piperacil/Tazobactam 3.375 GM in 0.9% Normal Saline (50mL MB+) 50 ML IV ×4 (00:16→22:34)
[2025-03-21 04:30] VITALS: BP 111/75; PULSE 58; RESP 15; TEMP 36.3; O2SAT 99
[2025-03-21 06:00] VITALS: BMI 22.3
[2025-03-21] MEDS: 0.9% Normal Saline (1000mL) 1,000 ML 150 ML IV (06:50)
[2025-03-21 07:17] LABS: Hematocrit 30.9 % (37-47); Hemoglobin 11.0 g/dL (12.0-15.0); Immature Granulocytes Count 0.010 X10^3/uL (0.0-0.0); Mean Corp Hgb Conc 35.6 g/dL (32-36); Mean Corpuscular Volume 95.4 fL (81-99); Mean Platelet Vol. 10.8 fl (6.2-12.0); NRBC Flagged by Analyzer 0 % (0-5); Platelet Count 214 K/mm3 (150-450); RBC Distribution Width CV 12.2 % (11.6-14.6); RBC Distribution Width SD 42.6 fl (35.1-43.9); Red Blood Count 3.24 M/mm3 (4.2-5.4); White Blood Count 7.8 K/mm3 (4.4-11.0)
[2025-03-21 07:58] VITALS: O2SAT 95
[2025-03-21 08:01] LABS: AST(SGOT) 13 U/L (<=31); Alanine Aminotransfer ALT/SGPT 9 U/L (<=34); Albumin, Serum 3.6 g/dL (3.5-5.0); Alkaline Phosphatase 34 U/L (35-104); Anion Gap 9 (5-15); BUN 12 mg/dL (4-19); BUN/Creat Ratio 16.9 RATIO (10-20); Calcium,Total 8.1 mg/dL (7.6-11.0); Carbon Dioxide 22.2 mmol/L (21.0-32.0); Chloride 109 mmol/L (98-108); Estimated Creatinine Clearance 92.00 ml/min (50-250); Globulin 2.1 g/dL (2.2-4.2); Glucose 89 mg/dL (70-99); Potassium 3.6 mmol/L (3.3-5.1)
[2025-03-21 10:00] VITALS: BP 95/68; PULSE 68; RESP 14; TEMP 36.7; O2SAT 100
[2025-03-21] MEDS: proMETHazine 25 MG/ML Syringe 12.5 MG IM (10:54)
[2025-03-21] MEDS: Pantoprazole Sodium 40 MG in 0.9% Normal Saline (100mL MB+) 100 ML 330 MG IV (10:54)
[2025-03-21 14:47] VITALS: BP 101/43; PULSE 66; RESP 14; TEMP 37; O2SAT 99
--- NOTE | 2025-03-21 15:03 | CHAPLAIN ---
Type of Pastoral Visit _x__ Initial Visit ___ Follow-up Visit ___ On-call Visit ___ General Patient Visit ___ Spiritual Assessment ___ Family Conference ___ Bereavement ___ Rapid Response ___ Code Blue ___ Other (describe below) Pastoral Care Referral From _x__ Patient ___ Family ___ Nurse ___ Physician ___ Medical Imaging Tech ___ Mathematics Faculty Member ___ Other (describe below) Sacrament/Intervention _x__ Active listening ___ Anointing ___ Congregation ___ Bereavement ___ Communion ___ Anjali exploration ___ ___ Life review ___ Prayer ___ Reconciliation ___ Sacrament of Sick _x__ Supportive presence ___ Wedding ___ Other (describe below) Pastoral Comments patient is welcoming but admits that she feels sick and not too interested in a conversation; SO is with the patient and he is somewhat receptive; pt denies any specific needs or concerns; offer given of support now or later; pt is supported by kind words, offers of help, and 'not having her do more or answer many questions'; SO is offered support and conversation
--- NOTE | 2025-03-21 16:29 | PN_ITS ---
Subjective Subjective Patient seen and examined. She was admitted with a complaint of abdominal pain. Imaging was initially concerning for appendicitis but this was ruled out by general surgery. Patient still complaining of abdominal pain mainly in the lower abdomen. She still having nausea but denies any vomiting. Review of systems otherwise negative. I saw her with her nurse by bedside. Objective Data Objective Data Vital Signs: Vital Signs Temp Pulse Resp BP Pulse Ox O2 Del Method 98.6 F 66 14 101/43 L 99 Room Air 03/21/25 14:47 03/21/25 14:47 03/21/25 14:47 03/21/25 14:47 03/21/25 14:47 03/21/25 14:47 Oxygen Delivery Method Room Air Weight: 122 lb 2.177 oz Body Mass Index (BMI) 22.3 Intake & Output: Intake and Output for Last 24 Hours 03/19/25 03/20/25 03/21/25 23:59 23:59 23:59 Intake Total 1100 / 1100 2200 / 2200 Output Total 0 / 0 Balance 1100 / 1100 2200 / 2200 Lab / Micro Data 03/21/25 06:31 03/21/25 06:31 Labs: Laboratory Results - last 24 hr 03/20/25 15:40: Sodium 139, Potassium 3.8, Chloride 104, Carbon Dioxide 23.3, Anion Gap 12, BUN 16, Creatinine 0.80, Estim Creat Clear Calc 86.61, Est GFR (MDRD) Non-Af 103, BUN/Creatinine Ratio 20.5 H, Glucose 96, Calcium 9.8, Magnesium 2.1, Total Bilirubin 0.68, AST 15, ALT 13, Alkaline Phosphatase 56, Total Protein 8.0, Albumin 5.0, Globulin 3.0, Albumin/Globulin Ratio 1.7, Lipase 36 03/21/25 06:31: WBC 7.8, RBC 3.24 L, Hgb 11.0 L, Hct 30.9 L, MCV 95.4, MCH 34.0 H, MCHC 35.6, RDW Std Deviation 42.6, RDW Coeff of Cinthya 12.2, Plt Count 214, MPV 10.8, Immature Gran % (Auto) 0.100, Neut % (Auto) 61.2, Lymph % (Auto) 30.0, Smyth % (Auto) 6.3, Eos % (Auto) 1.8, Baso % (Auto) 0.6, Absolute Neuts (auto) 4.8, Absolute Lymphs (auto) 2.34, Nucleated RBC % 0, Sodium 140, Potassium 3.6, Chloride 109 H, Carbon Dioxide 22.2, Anion Gap 9, BUN 12, Creatinine 0.72, Estim Creat Clear Calc 92.00, Est GFR (MDRD) Non-Af 117, BUN/Creatinine Ratio 16.9, Glucose 89, Calcium 8.1, Phosphorus 3.9, Total Bilirubin 1.07, AST 13, ALT 9, A lkaline Phosphatase 34 L, Total Protein 5.7 L, Albumin 3.6, Globulin 2.1 L, Albumin/Globulin Ratio 1.7, TSH 0.294 L Radiography Diagnostic Testing: Radiology Impression Abdomen/Pelvis CT 03/20/25 16:35 IMPRESSION: Findings equivocal for acute appendicitis. Reading Location: [facility] Transvaginal US 03/20/25 18:57 IMPRESSION: No evidence of ovarian torsion. Reading Location: [facility] Physical Exam Const alert and oriented x3 Constitutional Narrative: frauk General Appearance: cooperative HEENT normocephalic and head/scalp atraumatic Mouth: dry mucous membranes Eyes EOMs intact bilaterally Neck no lymphadenopathy Lymph Lymphatic: no lymphedema noted Resp normal respiratory effort, normal air movement and clear to auscultation bilaterally Cardio regular rate, regular rhythm, S1 normal heart sound, S2 normal heart sound and no murmurs GI GI Narrative: abdomen soft, mild generalised tenderness, more pronounced in the suprapubic area Extremity normal capillary refill General Extremity: no tenderness to palpation of joints or extremities Skin General Skin Exam: no breakdown Neuro CN's II-XII intact bilaterally and no focal motor deficits Motor Exam: general weakness Psych thought process normal and cooperative Appearance: appropriate Assessment & Plan Assessment/Plan (1) Intractable nausea and vomiting: (2) Intractable abdominal pain: PLAN: Plan #Intractable abdominal pain and diarrhea * Diarrhea has not recurred since admission. CT of the abdomen and pelvis showed findings equivocal for acute appendicitis. General surgery reviewed and did not think that she had appendicitis. * She continues to have this abdominal pain with nausea. On IV Zosyn due to concern for underlying infection. Also on IV pantoprazole. * On IV Zofran and Compazine as needed for nausea. On IV ketorolac. * Gastroenterology consulted as general surgery did not think that this was any thing surgically related. * She does smoke marijuana and was counseled about the GI effects of marijuana and counseled to quit. * Continue gentle hydration IV fluids. #Nicotine dependence: Counseled to quit. Nicotine patch. #Low TSH: TSH is 0.294 which is right on the border of the lower limit of normal which is 0.3. Check free T4 and T3. #Bipolar disorder: not on any treatment currently. Stable. DVT prophylaxis: Lovenox Charges/Coding Visit Charges Inpatient E&M: 86834 Subs Hosp L2
--- NOTE | 2025-03-21 17:27 | CON.PCM.GI_ITS ---
HPI Consult Data Date of Consult: 03/21/25 HPI Narrative Reason for Consultation: Abdominal pain HPI Narrative: EMI GALINDO, is a 29-year-old female presenting with severe, acute onset abdominal pain for several days. She describes the pain as cramping, located primarily in the periumbilical region, and rates it as 8/10 in severity. The pain is somewhat alleviated by lying still and aggravated by movement. She also complains of associated nausea, vomiting, diarrhea. She denies any constipation, or urinary symptoms. She denies recent changes in diet or travel history. She has no significant past medical history. She does smoke e-cigarettes in smokes marijuana on a daily basis. She had a workup done at [facility] for nausea and vomiting and was diagnosed with possible eosinophilic esophagitis. She does not take any PPIs. She has not had any antibiotics recently. She has not had abdominal surgeries. Her workup in the ED included CT scan abdomen pelvis which was suspicious for possible acute appendicitis. She has been seen by surgery and that has been ruled out. She also underwent transvaginal ultrasound to look for ovarian torsion. She does take vitamins but is not she can get at this time. Her urine test was negative. She did not have a urine drug test. * Laboratory Data: * Complete Blood Count (CBC): No leukocytosis or elevated hematocrit. * Lactic Acid: Within normal limits. * Imaging Results: * CT scan of the abdomen and pelvis: Negative for acute pathology. * Mesenteric Angiography: Not performed, but doppler ultrasound can be considered to visualize vessels. * Doppler ultrasound: Not performed. * Transvaginal ultrasound: No acute pathology [facility] Medical History Bipolar disorder Home Medications ?Medication ?Instructions ?Recorded ?Last Taken ?Type acetaminophen 500 mg capsule 1,000 mg PO Q6H PRN fever or pain 03/20/25 03/20/25 History Allergy/AdvReac Type Severity Reaction Status Date / Time hydrocodone Allergy Mild Vomiting Verified 03/20/25 15:20 acetaminophen Allergy Vomiting Verified 03/20/25 15:20 gluten Allergy Vomiting Verified 03/20/25 15:20 hydromorphone (From Dilaudid) AdvReac Other Verified 03/20/25 20:01 Social History Smoking Status: Current every day smoker tobacco type: e-cigarettes substance use type: marijuana Physical Exam Const alert and oriented x3 General Appearance: cooperative HEENT normocephalic and head/scalp atraumatic Mouth: dry mucous membranes Eyes EOMs intact bilaterally Neck no lymphadenopathy Lymph Lymphatic: no lymphedema noted Resp normal respiratory effort, normal air movement and clear to auscultation bilaterally Cardio regular rate, regular rhythm, S1 normal heart sound, S2 normal heart sound and no murmurs GI GI Narrative: abdomen soft, mild generalised tenderness, more pronounced in the suprapubic area Extremity normal capillary refill General Extremity: no tenderness to palpation of joints or extremities Skin General Skin Exam: no breakdown Neuro CN's II-XII intact bilaterally and no focal motor deficits Motor Exam: general weakness Psych thought process normal and cooperative Appearance: appropriate Lab / Micro Data 03/21/25 06:31 03/21/25 06:31 Labs: Laboratory Results - last 24 hr 03/20/25 15:40: Magnesium 2.1 03/21/25 06:31: WBC 7.8, RBC 3.24 L, Hgb 11.0 L, Hct 30.9 L, MCV 95.4, MCH 34.0 H, MCHC 35.6, RDW Std Deviation 42.6, RDW Coeff of Cinthya 12.2, Plt Count 214, MPV 10.8, Immature Gran % (Auto) 0.100, Neut % (Auto) 61.2, Lymph % (Auto) 30.0, [place]ok % (Auto) 6.3, Eos % (Auto) 1.8, Baso % (Auto) 0.6, Absolute Neuts (auto) 4.8, Absolute Lymphs (auto) 2.34, Nucleated RBC % 0, Sodium 140, Potassium 3.6, Chloride 109 H, Carbon Dioxide 22.2, Anion Gap 9, BUN 12, Creatinine 0.72, Estim Creat Clear Calc 92.00, Est GFR (MDRD) Non-Af 117, BUN/Creatinine Ratio 16.9, Glucose 89, Calcium 8.1, Phosphorus 3.9, Total Bilirubin 1.07, AST 13, ALT 9, A lkaline Phosphatase 34 L, Total Protein 5.7 L, Albumin 3.6, Globulin 2.1 L, Albumin/Globulin Ratio 1.7, TSH 0.294 L Imaging Radiology Impression Abdomen/Pelvis CT 03/20/25 16:35 IMPRESSION: Findings equivocal for acute appendicitis. Reading Location: [id number] Transvaginal US 03/20/25 18:57 IMPRESSION: No evidence of ovarian torsion. Reading Location: [id number] Assessment & Plan Assessment/Plan (1) Abdominal pain: (2) Intractable abdominal pain: (3) Watery diarrhea: PLAN: 29-year-old with intractable abdominal pain, tenesmus, obstipation. She is also been having watery diarrhea. Recommend urine drug screen, CA125, ESR, CRP, IBD SGI, ANCA, urinalysis and urine culture. She may need pelvic MRI to diagnose adenomyosis which can cause abdominal pain. Will perform EGD and colonoscopy tomorrow to evaluate her lower GI tract to see if we can determine etiology of her pain. If workup is negative then she may need laparoscopic exam. The good thing is that she does not seem to be exhibiting any signs of acute abdomen. All questions and concerns answered. Further recommendations to follow. Charges/Coding Visit Charges Inpatient E&M: 51788 Init Hosp L3
[2025-03-21 19:00] LABS: Free T3 2.6 pg/mL (2.18-3.98)
[2025-03-21 20:44] VITALS: BP 116/80; PULSE 69; RESP 17; TEMP 36.6; O2SAT 98
[2025-03-21] MEDS: Polyethylene Glycol 3350 BOWEL PREP PO (20:47)
[2025-03-21 22:31] VITALS: BP 115/78; PULSE 61; RESP 17; TEMP 36.8; O2SAT 100
[2025-03-21] MEDS: 0.9% Saline Lock 10 ML Syringe IV ×2 (22:33→23:08)
[2025-03-21] MEDS: 0.9% Normal Saline (250mL Bag) 250 ML 15 ML IV (22:44)
[2025-03-21 23:42] LABS: Internal QC Validated? YES +Cl - CLEAR BKGD; Pregnancy, Urine Negative Negative; Record Kit Lot#,Urine Preg 0000947241
[2025-03-22] VITALS (16 sets, daily range): BP systolic 81–112; BP diastolic 42–74; PULSE 45–78; RESP 12–17; TEMP 36.2–36.6; O2SAT 95–100; BMI 22.5
[2025-03-22 00:02] LABS: Barbiturate Urine NEGATIVE (< 200 ng/mL); Benzodiazepine Urine NEGATIVE (< 200 ng/mL); PCP Urine NEGATIVE (< 25 ng/mL); THC Urine PRESUMPTIVE POSITIVE (< 50 ng/mL)
[2025-03-22 04:48] LABS: Hematocrit 33.5 % (37-47); Hemoglobin 11.3 g/dL (12.0-15.0); Immature Granulocytes Count 0.030 X10^3/uL (0.0-0.0); Mean Corp Hgb Conc 33.7 g/dL (32-36); Mean Corpuscular Volume 97.7 fL (81-99); Mean Platelet Vol. 10.7 fl (6.2-12.0); NRBC Flagged by Analyzer 0 % (0-5); Platelet Count 227 K/mm3 (150-450); RBC Distribution Width CV 12.4 % (11.6-14.6); RBC Distribution Width SD 44.3 fl (35.1-43.9); Red Blood Count 3.43 M/mm3 (4.2-5.4); White Blood Count 8.8 K/mm3 (4.4-11.0)
[2025-03-22 05:18] LABS: Anion Gap 13 (5-15); BUN 8 mg/dL (4-19); BUN/Creat Ratio 10.5 RATIO (10-20); Calcium,Total 8.9 mg/dL (7.6-11.0); Carbon Dioxide 17.7 mmol/L (21.0-32.0); Chloride 112 mmol/L (98-108); Estimated Creatinine Clearance 81.78 ml/min (50-250); Glucose 95 mg/dL (70-99); Potassium 3.6 mmol/L (3.3-5.1)
[2025-03-22] MEDS: Piperacil/Tazobactam 3.375 GM in 0.9% Normal Saline (50mL MB+) 50 ML IV ×2 (06:15→20:21)
[2025-03-22] MEDS: Pantoprazole Sodium 40 MG in 0.9% Normal Saline (100mL MB+) 100 ML 330 MG IV (09:27)
--- NOTE | 2025-03-22 12:43 | PN_ITS ---
Subjective Subjective Patient seen and examined. She is looking and feeling better. I saw her with her nurse by her bedside. She had no active complaints. Review of systems otherwise negative. She is for EGD and colonoscopy today. Objective Data Objective Data Vital Signs: Vital Signs Temp Pulse Resp BP Pulse Ox O2 Del Method 97.9 F 62 16 105/70 98 Room Air 03/22/25 09:18 03/22/25 09:18 03/22/25 09:18 03/22/25 09:18 03/22/25 09:18 03/22/25 09:18 Oxygen Delivery Method Room Air Weight: 123 lb 0.287 oz Body Mass Index (BMI) 22.5 Intake & Output: Intake and Output for Last 24 Hours 03/20/25 03/21/25 03/22/25 23:59 23:59 23:59 Intake Total 1100 / 1100 2251.25 / 2251.25 200 / 200 Output Total 0 / 0 Balance 1100 / 1100 2251.25 / 2251.25 200 / 200 Lab / Micro Data 03/22/25 04:34 03/22/25 04:34 Labs: Laboratory Results - last 24 hr 03/21/25 17:50: Free T4 1.50 H, Free T3 pg/dL 2.6 03/21/25 23:14: Urine Test Negative, Urine Opiates Screen NEGATIVE, U Buprenorphine Qual NEGATIVE, Ur Oxycodone Screen NEGATIVE, Urine Methadone Screen NEGATIVE, Urine Fentanyl Screen NEGATIVE, Ur Barbiturates Screen NEGATIVE, Ur Phencyclidine Scrn NEGATIVE, Ur Amphetamines Screen NEGATIVE, U Benzodiazepines Scrn NEGATIVE, Urine Cocaine Screen NEGATIVE, U Cannabinoids Screen PRESUMPTIVE POSITIVE 03/22/25 04:34: WBC 8.8, RBC 3.43 L, Hgb 11.3 L, Hct 33.5 L, MCV 97.7, MCH 32.9 H, MCHC 33.7 D, RDW Std Deviation 44.3 H, RDW Coeff of Cinthya 12.4, Plt Count 227, MPV 10.7, Immature Gran % (Auto) 0.300, Neut % (Auto) 63.3, Lymph % (Auto) 28.3, [place] % (Auto) 6.1, Eos % (Auto) 1.5, Baso % (Auto) 0.5, Absolute Neuts (auto) 5.6, Absolute Lymphs (auto) 2.49, Nucleated RBC % 0, Sodium 143, Potassium 3.6, Chloride 112 H, Carbon Dioxide 17.7 L, Anion Gap 13, BUN 8, Creatinine 0.81, Estim Creat Clear Calc 81.78, Est GFR (MDRD) Non-Af 101, BUN/Creatinine Ratio 10.5, Glucose 95, Calcium 8.9, Phosphorus 3.5 Micro: Microbiology 03/21/25 21:45 Stool Stool Lactoferrin - Final 03/21/25 21:45 Stool Enteric Bacteriology - Final 03/21/25 21:45 Stool Clostridioides difficile (PCR) - Final Physical Exam Const alert, oriented x3, no apparent distress and average body habitus General Appearance: cooperative HEENT normocephalic, head/scalp atraumatic, hearing grossly normal bilaterally and moist oral mucous membranes Eyes PERRL, EOMs intact bilaterally and conjunctivae normal Neck no lymphadenopathy, supple and no JVD Lymph Lymphatic: no lymphedema noted Resp normal respiratory effort, normal air movement, no retractions, no use of accessory muscles and clear to auscultation bilaterally Cardio regular rate, regular rhythm, S1 normal heart sound, S2 normal heart sound and no murmurs GI normal to inspection, nondistended, normoactive bowel sounds, soft to palpation, non-tender and non-distended Extremity normal to inspection, full ROM, normal capillary refill and no clubbing, cyanosis or edema General Extremity: no tenderness to palpation of joints or extremities Skin General Skin Exam: no breakdown Neuro oriented x3, CN's II-XII intact bilaterally, moves all extremities and no focal motor deficits Sensorium / Orientation: awake and alert Speech: speech normal Motor Exam: general weakness Psych thought process normal, cooperative and affect normal Appearance: appropriate Assessment & Plan Assessment/Plan (1) Intractable nausea and vomiting: (2) Intractable abdominal pain: PLAN: Plan #Intractable abdominal pain and diarrhea * Diarrhea has not recurred since admission. CT of the abdomen and pelvis showed findings equivocal for acute appendicitis. General surgery reviewed and did not think that she had appendicitis. * She continues to have this abdominal pain with nausea. On IV Zosyn due to concern for underlying infection. Also on IV pantoprazole. * On IV Zofran and Compazine as needed for nausea. On IV ketorolac. * Gastroenterology consulted as general surgery did not think that this was any thing surgically related. Per GI, for EGD and colonoscopy later today. * She does smoke marijuana and was counseled about the GI effects of marijuana and counseled to quit. * Continue gentle hydration IV fluids. #Nicotine dependence: Counseled to quit. Nicotine patch. #Low TSH: * TSH is 0.294 which is right on the border of the lower limit of normal which is 0.3. * Free T4 is also marginally elevated at 1.5 and free T3. * This is indicative of mild hyperthyroidism, but I think in light of the marginal numbers, it is a good idea to repeat these labs in the outpatient setting first before commencing any treatment. #Bipolar disorder: not on any treatment currently. Stable. DVT prophylaxis: Lovenox Charges/Coding Visit Charges Inpatient E&M: 23988 Subs Hosp L2
--- NOTE | 2025-03-22 15:10 | CASEMGMT ---
Addendum entered by Anni Braga 03/22/25 15:14: Pt previously seen by [facility] and is over-income for [facility]. ERIS Mckeon Original Note: Social Work- SW met with pt to discuss self-pay status. Pt reports she does have [facility] providers and completed [facility] for stay at hospital. SW provided [facility] assistance application, as pt wasn't sure if she had previously completed. SW also provided information and education on [facility], [employer], [facility], and prescription coverage programs. Pt reports no other needs at this time. ERIS Mckeon
--- NOTE | 2025-03-22 15:36 | PCM.PRE.AN2 ---
ASA Classification* ASA Classification ASA Classification: 2 Assessment & Plan Anesthesia* Anesthesia Assessment Anesthesia Assessment: Discussed sedation and/or anesthesia options, risks, benefits, and alternatives with patient/parents/legal guardian/POA. Questions invited. The patient/parents/legal guardian/POA seems to understand and agrees to proceed with anesthesia plan. Reviewed the physical assessment, medical history, allergy history and patient home medications list prior to surgery/procedure/anesthetic and documented any changes. Performed airway and anesthesia risk assessments. Anesthesia Type Anesthesia Type: MAC History Source History Obtained from:: Patient and Chart Anesthesia Focused Assessment* Temperature: 97.9 F Pulse Rate: 62 Blood Pressure: 105/70 Respiratory Rate: 16 Pulse Ox: 98 Oxygen Delivery Method: Room Air Airway Assessment Mouth opens: >3 cm Mallampati Score: II Teeth Condition: Intact Neck Range of motion (ROM): Full ROM Labs Anesthesia Preop lab: CBC WBC 8.8 K/mm3 (4.4-11.0) 03/22/25 04:34 03/22/25 RBC 3.43 M/mm3 (4.2-5.4) L 03/22/25 04:34 03/22/25 Hgb 11.3 g/dL (12.0-15.0) L 03/22/25 04:34 03/22/25 Hct 33.5 % (37-47) L 03/22/25 04:34 03/22/25 Plt Count 227 K/mm3 (150-450) 03/22/25 04:34 03/22/25 CHEMISTRY Potassium 3.6 mmol/L (3.3-5.1) 03/22/25 04:34 03/22/25 Sodium 143 mmol/L (133-145) 03/22/25 04:34 03/22/25 Magnesium 2.1 mg/dL (1.5-2.2) 03/20/25 15:40 03/20/25 Phosphorus 3.5 mg/dL (2.7-4.5) 03/22/25 04:34 03/22/25 BUN 8 mg/dL (4-19) 03/22/25 04:34 03/22/25 Creatinine 0.81 mg/dL (0.70-1.20) 03/22/25 04:34 03/22/25 Glucose 95 mg/dL (70-99) 03/22/25 04:34 03/22/25 TSH 0.294 uIU/mL (0.300-4.200) L 03/21/25 06:31 03/21/25 COAG PT 13.2 SECONDS (11.7-14.9) 04/01/23 12:17 04/01/23 HCG, Quant 60273 mIU/mL (1-3) H 03/28/20 00:35 03/28/20 Urine Test Negative Negative 03/21/25 23:14 03/21/25 Pre-Assessment Diagnosis/Proposed Procedure Planned Operative Procedure(s): EGD and colonoscopy Anesthesia History Anesthesia History - agency sales management assistant: Anesthesia History - agency sales management assistant Hx Hospitalization Any Problems With Anesthesia No 03/21/25 19:15 Cholinesterase deficiency No 03/21/25 19:15 You/Your Family Experience No 03/21/25 19:15 fever (hyperthermia) with Relationship Recent Exposure to Contagious No 03/21/25 19:15 Disease Does patient have nerve No 03/21/25 19:15 stimulator Patient instructed to have No 03/21/25 19:15 device shut off --Does patient have Pacemaker No 03/22/25 06:20 or ICD? When Was Last Pacemaker Check QUESTION #4 FULL TEXT: You/Your Family Experience fever (hyperthermia) with Anesthesia Last Oral Intake Last Oral intake: Last Oral Intake NPO since 00:10 03/22/25 06:20 Meds taken in AM with sips of water? Meds patient instructed to take am of surgery PONV PONV - agency sales management assistant: PONV - agency sales management assistant Female HX of Motion Sickness HX of N/V After Surgery Non-Smoker Duration of Surgery greater than 60 minutes Number of Risk Factors PONV Score Height & Weight Height & Weight: Anesthesia: Height & Weight Height 5 ft 2 in 03/22/25 06:20 Weight: 55.8 kg 03/22/25 06:20 Body Mass Index (BMI) 22.5 03/22/25 06:20 Respiratory Assessment Respiratory Assessment - agency sales management assistant: Respiratory Tract Infection Hx - agency sales management assistant Hx Respiratory Tract Infection No 03/21/25 19:15 STOP Sleep Apnea STOP Sleep Apnea - agency sales management assistant: STOP Sleep Apnea - agency sales management assistant Hx Hypertension No 03/20/25 22:30 Hx Sleep Apnea No 03/20/25 22:30 CPAP BIPAP Do you snore loudly (louder No 03/20/25 22:30 than talking or can be heard Do you often feel tired/ No 03/20/25 22:30 fatigued/ sleepy during daytime? Has anyone observed you stop No 03/20/25 22:30 breathing during sleep? STOP Results Negative 03/20/25 22:30 QUESTION #5 FULL TEXT : Do you snore loudly (louder than talking or can be heard through closed doors)? Tobacco Use History Tobacco Use History - agency sales management assistant: Tobacco Use History - agency sales management assistant Tobacco Use Smoking Status Current every day smoker 03/21/25 05:36 Hx Tobacco Use Yes 03/20/25 22:30 Years Smoking Packs Smoked per Day Smoking Cessation Date was within the last 15 years Hx Smoking Cessation Date Hx Smoking Cessation No 03/20/25 22:30 Counseling Hematologic Medial History Hematologic Hx - agency sales management assistant: Hematologic Medical Hx - epic professional Hx of Blood Transfusion No 03/20/25 22:30 Hx of Transfusion in last 3 No 03/20/25 22:30 Months Date of Last Transfusion (if within last 3 months) Ever experience any problems No 03/20/25 22:30 with transfusion(s)? Specify any problems Hx of Preganancy in last 3 N/A 03/20/25 22:30 Months Nurse Filling Out Transfusion JGALLOWAY 03/20/25 22:30 & Questions: Date: 03/20/25 03/20/25 22:30 Time: 22:50 03/20/25 22:30 Patient unable to answer at this time (ie. confused, unrespo /Reproduction History /Reproductive History - agency sales management assistant: /Reproductive Hx- agency sales management assistant Hx Now No 03/21/25 19:15 Gestational Age (in weeks): EDC: Hx Hx Para Hx Section SAB No 03/21/25 19:15 Active Medications Active Medications: Current Medications Generic Name Dose Route Start Last Admin Trade Name Freq PRN Reason Stop Dose Admin Dicyclomine HCl 20 mg 03/21/25 22:53 03/22/25 14:29 Dicyclomine 10 Mg Capsule PO 20 mg BID PRN PRN Administration abdominal discomfort Enoxaparin Sodium 40 mg 03/21/25 10:00 03/22/25 09:26 Enoxaparin 40 Mg/0.4 Ml Syringe SC Not Given DAILY NANCY Piperacillin Sod/Tazobactam 50 mls @ 12.5 mls/hr 03/20/25 22:00 03/22/25 15:18 Sod 3.375 gm/ Sodium Chloride IV Not Given Q8 NANCY Pantoprazole Sodium 40 mg/ 100 mls @ 330 mls/hr 03/20/25 21:48 03/22/25 11:05 Sodium Chloride IV Infused Q24 NANCY Infusion Sodium Chloride 250 mls @ 15 mls/hr 03/20/25 22:38 03/21/25 22:49 IV 0 mls/hr .[id number] PRN Infusion Saline Flush Sodium Chloride 250 mls @ 15 mls/hr 03/20/25 22:38 IV .[id number] PRN Additional IVPB Infusion Ketorolac Tromethamine 15 mg 03/20/25 21:48 03/21/25 10:54 Ketorolac 15 Mg/Ml Vial IV 03/25/25 21:49 15 mg Q8H PRN PRN Administration Pain 1-5/10 or Fever Morphine Sulfate 2 mg 03/21/25 02:51 Morphine 2 Mg/Ml Syringe IV Q4H PRN PRN Pain Score 6-10 Nicotine 14 mg 03/20/25 21:50 03/22/25 09:31 Nicotine 14 Mg Patch TD 14 mg DAILY NANCY Administration Ondansetron HCl 4 mg 03/20/25 22:30 03/21/25 23:07 Ondansetron 4 Mg/2 Ml Vial IV 4 mg Q4H PRN PRN Administration NAUSEA/VOMITING Promethazine HCl 12.5 mg 03/20/25 22:30 03/21/25 10:54 Promethazine 25 Mg/Ml Syringe IM 12.5 mg Q4H PRN PRN Administration BREAKTHROUGH NAUSEA Scopolamine HBr 1 patch 03/20/25 21:48 03/20/25 23:22 Scopolamine 1mg/72hr Patch TD 1 patch Q3D NANCY Administration Sodium Chloride 10 - 40 ml 03/20/25 22:38 03/21/25 23:08 0.9% Saline Lock 10 Ml Syringe IV 10 ml UD PRN Administration [facility] Medical History Bipolar disorder Home Medications ?Medication ?Instructions ?Recorded ?Last Taken ?Type acetaminophen 500 mg capsule 1,000 mg PO Q6H PRN fever or pain 03/20/25 03/20/25 History Allergy/AdvReac Type Severity Reaction Status Date / Time hydrocodone Allergy Mild Vomiting Verified 03/20/25 15:20 acetaminophen Allergy Vomiting Verified 03/20/25 15:20 gluten Allergy Vomiting Verified 03/20/25 15:20 diphenhydramine (From AdvReac Severe Other Verified 03/21/25 22:48 Benadryl) hydromorphone (From Dilaudid) AdvReac Other Verified 03/20/25 20:01 Social History Smoking Status: Current every day smoker tobacco type: e-cigarettes substance use type: marijuana Review of Systems (Anesthesia) ROS Narrative System reviewed and no additional complaints, except as documented.
--- NOTE | 2025-03-22 16:45 | EGD_PTH ---
PATIENT: EMI GALINDO [place] [facility] [place] U#:[id number] AGE/SX: 29/F ROOM: [facility] RE03/20/[address]: Dr. Alejo Burks DO : 1995 BED: 1 DIS: 03/23/2025 SPEC #: [id number] RECD: 03/23/25 09:08 STATUS: JOEL NGUYỄN #: [id number] DEBO: 03/22/25 16:[address]: Urban Wang DEPT: SURGICAL PATHOLOGY RECD BY: Kyle Hamilton ENTERED: 03/23/25 10:46 SP TYPE: EGD BIOPSY OTHR DR: DO Dr. Charly Austin MD Dr. David de Lorenzo, DO Dr. Nana Yaa Koram, MD Tissues: A - Duodenum, NOS B - Gastric mucous membrane C - Esophagus, NOS D - Ileum, NOS E - Rectum, NOS Procedures: Special Stain Group I Surgery Specimen Level IV GMS Stain (control) Comments: @ Ordering doctor for SUIV edited from to @ katia CEDILLO at 03/23/25 1047 @ Submitting doctor edited from to @ katia CEDILLO at 03/23/25 1047 HEADER OPERATION: Colonoscopy with biopsy, EGD with biopsy PRE-OP DIAGNOSIS: Abdominal pain TISSUE SUBMITTED: A- Duodenal biopsies, B- Gastric body biopsy, C- Random esophagus biopsy,D- Terminal ileum biopsy, E- Rectal biopsy MICROSCOPIC DIAGNOSIS A. Duodenum, biopsy: - Normal villous morphology with no specific pathologic change. - Negative for increased intraepithelial lymphocytes. B. Gastric body, biopsy: - Oxyntic mucosa with slight chronic inflammation. - Negative for Helicobacter-like organisms (H&E). C. Esophagus, random, biopsy: - Squamous mucosa with reactive changes and mild acute inflammation. - PASD stain is pending and will be reported in an addendum. D. Terminal ileum, biopsy: - Normal villous architecture. - Prominent mucosal lymphoid tissue, favor reactive. E. Rectum, biopsy: - Focal active colitis/proctitis. - Prolapse change. MICROSCOPIC DESCRIPTION Slides are reviewed. GROSS DESCRIPTION A. Received in fixative is one container labeled with the patient's name and designated Duodenum biopsy. The specimen consists of two irregular fragments of light alaniz soft tissue that measure 0.4 and 0.6 cm. The specimen is totally submitted in one cassette. B. Received in fixative is one container labeled with the patient's name and designated Gastric body biopsy. The specimen consists of two irregular fragments of light alaniz soft tissue that measure 0.4 and 0.7 cm. The specimen is totally submitted in one cassette. C. Received in fixative is one container labeled with the patient's name and designated Random esophagus biopsy. The specimen consists of a partially opened formalin container; 3, <0.1 cm to 0.4 cm. Smallest fragment may not survive processing. D. Received in fixative is one container labeled with the patient's name and designated Terminal ileum biopsy. The specimen consists of four irregular fragments of light alaniz soft tissue that measure 0.2 to 0.4 cm. The specimen is totally submitted in one cassette. E. Received in fixative is one container labeled with the patient's name and designated Rectal biopsy. The specimen consists of two irregular fragments of light alaniz soft tissue that measure 0.2 and 0.3 cm. The specimen is totally submitted in one cassette. [place] 03/23/2025 [facility]:[id number] ADDENDUM ADDENDUM ADDENDUM ADDENDUM ADDENDUM ADDENDUM ADDENDUM ADDENDUM ADDENDUM ADDENDUM 03/28/2025 17:14 ADDENDUM 03/28/2025 17:14 ADDENDUM 03/28/2025 17:14 ADDENDUM 03/28/2025 17:14 ADDENDUM 03/28/2025 17:14 This addendum is to report the PASD stain on part C: C. PASD stain is negative for fungal organisms. All matched controls reacted appropriately. These tests were developed and their performance characteristics determined by [facility]. They may not have been cleared or approved by the U.S. Food and Drug Administration. The FDA has determined that such clearance or approval is not necessary.? The above immunohistochemical?markers are reviewed by the Pathologist.
--- NOTE | 2025-03-22 16:54 | PCM.POST.ANE ---
Anesthesia: Postop Eval I Current Vital Signs Temperature: 97.1 F Pulse Rate: 60 Blood Pressure: 87/56 Respiratory Rate: 16 Pulse Ox: 98 Oxygen Delivery Method: Room Air Assessment Airway patent: Yes Spontaneous unlabored respirations: Yes Mental status: Awake and Calm nausea: No Vomiting: No Anesthesia Complication: No Fluid Hydration Crystalloid volume administer (ml): 200 Total IV fluid infused: 200 Progress Note Anesthesia document: Postop Eval 1 completed: Yes
--- NOTE | 2025-03-22 17:12 | OP.EGD_ITS ---
Patient Name: Ko Bah Procedure Date: 03/22/2025 4:14 PM Date of : 1995 Age: 29 Procedure: Upper GI endoscopy Indications: Epigastric abdominal pain, Functional Dyspepsia, Failure to respond to medical treatment Providers: Urban Wang DO Medicines: Monitored Anesthesia Care Patient Profile: This is a 29 year old female. Refer to note in patient chart for documentation of history and physical. Patient has symptoms of acute abdominal cramping and chronic dyspepsia. Complications: No immediate complications. Procedure: Pre-Anesthesia Assessment: - Prior to the procedure, a History and Physical was performed, and patient medications and allergies were reviewed. The patient is competent. The risks and benefits of the procedure and the sedation options and risks were discussed with the patient. All questions were answered and informed consent was obtained. Patient identification and proposed procedure were verified by the physician in the pre-procedure area. Mental Status Examination: alert and oriented. Airway Examination: Mallampati Class II (the uvula but not tonsillar pillars visualized). Respiratory Examination: clear to auscultation. CV Examination: normal. Prophylactic Antibiotics: The patient does not require prophylactic antibiotics. Prior Anticoagulants: The patient has taken no anticoagulant or antiplatelet agents except for NSAID medication. ASA Grade Assessment: II - A patient with mild systemic disease. After reviewing the risks and benefits, the patient was deemed in satisfactory condition to undergo the procedure. The anesthesia plan was to use monitored anesthesia care (MAC). Immediately prior to administration of medications, the patient was re-assessed for adequacy to receive sedatives. The heart rate, respiratory rate, oxygen saturations, blood pressure, adequacy of pulmonary ventilation, and response to care were monitored throughout the procedure. The physical status of the patient was re-assessed after the procedure. After obtaining informed consent, the endoscope was passed under direct vision. Throughout the procedure, the patient's blood pressure, pulse, and oxygen saturations were monitored continuously. The colonoscope was introduced through the mouth, and advanced to the fourth part of the duodenum. Small bowel enteroscopy was deemed necessary. The upper GI endoscopy was accomplished without difficulty. The patient tolerated the procedure well. Scope In: 4:28:27 PM Scope Out: 4:33:28 PM Total Procedure Duration Time 0 hours 5 minutes 1 second Findings: The examined esophagus was normal. Biopsies were taken with a cold forceps for histology. Verification of patient identification for the specimen was done. Estimated blood loss was minimal. Patchy mild inflammation characterized by erythema was found in the gastric body. Biopsies were taken with a cold forceps for histology. Verification of patient identification for the specimen was done. Biopsies were taken with a cold forceps for Helicobacter pylori testing. Verification of patient identification for the specimen was done. Estimated blood loss was minimal. Patchy mildly erythematous mucosa without active bleeding and with no stigmata of bleeding was found in the entire duodenum. Biopsies were taken with a cold forceps for histology. Verification of patient identification for the specimen was done. Estimated blood loss was minimal. Impression: - Normal esophagus. - Chronic gastritis. Biopsied. - Erythematous duodenopathy. Biopsied. Recommendation: - [facility]. - Resume previous diet. - Continue present medications. - Await pathology results. Procedure Code(s): --- Professional --- 15419, Small intestinal endoscopy, enteroscopy beyond second portion of duodenum, not including ileum; with biopsy, single or multiple CPT copyright 2021 [employer]. All rights reserved. The codes documented in this report are preliminary and upon internet marketing specialist review may be revised to meet current compliance requirements. Urban Wang DO 03/22/2025 5:12:14 PM This report has been signed electronically. Number of Addenda: 0 Note Initiated On: 03/22/2025 4:14 PM
--- NOTE | 2025-03-22 17:12 | OP.PROVAT_ITS ---
03/22/2025 Charly Nassar Re : Upper GI endoscopy procedure for Ko Bah Dear Maday This procedure was performed on Saturday, March 22, 2025. My impressions and recommendations are as follows: Impressions : - Normal esophagus. - Chronic gastritis. Biopsied. - Erythematous duodenopathy. Biopsied. Recommendations : - Return patient to [facility]. - Resume previous diet. - Continue present medications. - Await pathology results. My findings are described in the full procedure note, which is enclosed. If I can be of further assistance, please feel free to contact me at . Sincerely, Urban Wang, 03/22/2025 5:12:14 PM This report has been signed electronically.
--- NOTE | 2025-03-22 17:16 | OP.PROVAT_ITS ---
03/22/2025 Charly Nassar Re : Colonoscopy procedure for Ko Bah Dear Maday This procedure was performed on Saturday, March 22, 2025. My impressions and recommendations are as follows: Impressions : - Congested mucosa in the rectum. Biopsied. - Mild inflammation was found in the ileum secondary to ileitis. Biopsied. Recommendations : - Return [facility]. - Advance diet as tolerated. - Continue present medications. - Await pathology results. - Repeat colonoscopy in 5 years for surveillance based on pathology results. My findings are described in the full procedure note, which is enclosed. If I can be of further assistance, please feel free to contact me at . Sincerely, Urban Wang, 03/22/2025 5:16:05 PM This report has been signed electronically.
--- NOTE | 2025-03-22 17:16 | OP.COLON_ITS ---
Patient Name: Ko Bah Procedure Date: 03/22/2025 4:36 PM Date of : 1995 Age: 29 Procedure: Colonoscopy Indications: Generalized abdominal pain, Periumbilical abdominal pain, Pelvic pain, Abdominal distress in the right upper quadrant, Abdominal distress in the left upper quadrant, Abdominal distress in the right lower quadrant, Abdominal distress in the left lower quadrant, Clinically significant diarrhea of unexplained origin Providers: Urban Wang DO Medicines: Monitored Anesthesia Care Patient Profile: This is a 29 year old female. Refer to note in patient chart for documentation of history and physical. Patient has symptoms of acute abdominal cramping and chronic dyspepsia. Last Colonoscopy: none. The patient's first colonoscopy is today. Complications: No immediate complications. Procedure: Pre-Anesthesia Assessment: - Prior to the procedure, a History and Physical was performed, and patient medications and allergies were reviewed. The patient is competent. The risks and benefits of the procedure and the sedation options and risks were discussed with the patient. All questions were answered and informed consent was obtained. Patient identification and proposed procedure were verified by the physician in the pre-procedure area. Mental Status Examination: alert and oriented. Airway Examination: Mallampati Class II (the uvula but not tonsillar pillars visualized). Respiratory Examination: clear to auscultation. CV Examination: normal. Prophylactic Antibiotics: The patient does not require prophylactic antibiotics. Prior Anticoagulants: The patient has taken no anticoagulant or antiplatelet agents except for NSAID medication. ASA Grade Assessment: II - A patient with mild systemic disease. After reviewing the risks and benefits, the patient was deemed in satisfactory condition to undergo the procedure. The anesthesia plan was to use monitored anesthesia care (MAC). Immediately prior to administration of medications, the patient was re-assessed for adequacy to receive sedatives. The heart rate, respiratory rate, oxygen saturations, blood pressure, adequacy of pulmonary ventilation, and response to care were monitored throughout the procedure. The physical status of the patient was re-assessed after the procedure. After I obtained informed consent, the scope was passed under direct vision. Throughout the procedure, the patient's blood pressure, pulse, and oxygen saturations were monitored continuously. The colonoscope was introduced through the anus and advanced to the terminal ileum. The colonoscopy was performed without difficulty. The patient tolerated the procedure well. The quality of the bowel preparation was adequate. The terminal ileum, ileocecal valve, appendiceal orifice, and rectum were photographed. Scope In: 4:35:57 PM Scope Withdrawal Time 0 hours 11 minutes 43 seconds Scope Out: 4:51:19 PM Total Procedure Duration Time 0 hours 15 minutes 22 seconds Findings: The perianal and digital rectal examinations were normal. An area of mildly congested mucosa was found in the rectum. Biopsies were taken with a cold forceps for histology. Verification of patient identification for the specimen was done. Estimated blood loss was minimal. Patchy mild inflammation characterized by erythema and friability was found in the terminal ileum. Biopsies were taken with a cold forceps for histology. Verification of patient identification for the specimen was done. Estimated blood loss was minimal. Impression: - Congested mucosa in the rectum. Biopsied. - Mild inflammation was found in the ileum secondary to ileitis. Biopsied. Recommendation: - Return patient to [facility] for [facility]. - Advance diet as tolerated. - Continue present medications. - Await pathology results. - Repeat colonoscopy in 5 years for surveillance based on pathology results. Procedure Code(s): --- Professional --- 90676, Colonoscopy, flexible; with biopsy, single or multiple CPT copyright 2021 [employer]. All rights reserved. The codes documented in this report are preliminary and upon data coder operator review may be revised to meet current compliance requirements. Urban Wang DO 03/22/2025 5:16:05 PM This report has been signed electronically. Number of Addenda: 0 Note Initiated On: 03/22/2025 4:36 PM
--- NOTE | 2025-03-22 18:30 | POSTOPAN2_ITS ---
Anesthesia Postop Eval I Sum Postop Eval Completion status Anesthesia document: Postop Eval 1 completed: Yes Anesthesia Postop Eval I Summary Anesthesia Postop Eval I Summary: Anesthesia Postop Eval I: Assessment Summary Airway patent Yes 03/22/25 16:58 TOOL MACHINE SETUP [email or web address] Spontaneous unlabored Yes 03/22/25 16:58 TOOL MACHINE SETUP OPERATOR.[email or web address] respirations Mental status Awake,Calm 03/22/25 16:58 TOOL MACHINE SETUP OPERATOR.[email or web address] nausea No 03/22/25 16:58 TOOL MACHINE SETUP OPERATOR.[email or web address] Vomiting No 03/22/25 16:58 TOOL MACHINE SETUP [email or web address].[email or web address] Anesthesia Postop Eval I: Fluid Summary Crystalloid volume administer 200 03/22/25 16:58 TOOL MACHINE SETUP [email or web address].[email or web address] (ml) Colloids volume administered ( ml) Blood Product volume administered (ml) Total IV fluid infused 200 03/22/25 16:58 TOOL MACHINE SETUP [email or web address].[email or web address] Anesthesia Postop Eval I: Summary Notes Anesthesia Complication No 03/22/25 16:58 TOOL MACHINE SETUP [email or web address].[email or web address] Anesthesia Complication Comment: Post-operative progress note Anesthesia: Postop Eval II Evaluation Mental status: Awake and Calm Pain Level: 1 nausea: No Vomiting: No
--- NOTE | 2025-03-22 18:30 | PCM.POSTANE2 ---
Anesthesia Postop Eval I Sum Postop Eval Completion status Anesthesia document: Postop Eval 1 completed: Yes Anesthesia Postop Eval I Summary Anesthesia Postop Eval I Summary: Anesthesia Postop Eval I: Assessment Summary Airway patent Yes 03/22/25 16:58 [email or web address] Spontaneous unlabored Yes 03/22/25 16:58 [email or web address] respirations Mental status Awake,Calm 03/22/25 16:58 [email or web address] nausea No 03/22/25 16:58 [email or web address] Vomiting No 03/22/25 16:58 [email or web address] Anesthesia Postop Eval I: Fluid Summary Crystalloid volume administer 200 03/22/25 16:58 [email or web address] (ml) Colloids volume administered ( ml) Blood Product volume administered (ml) Total IV fluid infused 200 03/22/25 16:58 [email or web address] Anesthesia Postop Eval I: Summary Notes Anesthesia Complication No 03/22/25 16:58 [email or web address] Anesthesia Complication Comment: Post-operative progress note Anesthesia: Postop Eval II Evaluation Mental status: Awake and Calm Pain Level: 1 nausea: No Vomiting: No
[2025-03-22] MEDS: 0.9% Saline Lock 10 ML Syringe IV (20:21)
[2025-03-23 03:00] VITALS: BP 104/75; PULSE 64; RESP 16; TEMP 36.5; O2SAT 100
[2025-03-23 03:42] VITALS: BMI 25.0
[2025-03-23 03:46] VITALS: BMI 21.2; BMI 22.8
[2025-03-23] MEDS: Piperacil/Tazobactam 3.375 GM in 0.9% Normal Saline (50mL MB+) 50 ML IV (05:17)
[2025-03-23 08:34] LABS: Anion Gap 11 (5-15); BUN 8 mg/dL (4-19); BUN/Creat Ratio 11.0 RATIO (10-20); Calcium,Total 8.7 mg/dL (7.6-11.0); Carbon Dioxide 21.0 mmol/L (21.0-32.0); Chloride 108 mmol/L (98-108); Estimated Creatinine Clearance 88.32 ml/min (50-250); Glucose 94 mg/dL (70-99); Potassium 3.5 mmol/L (3.3-5.1)
[2025-03-23 08:44] LABS: Hematocrit 30.9 % (37-47); Hemoglobin 10.7 g/dL (12.0-15.0); Immature Granulocytes Count 0.020 X10^3/uL (0.0-0.0); Mean Corp Hgb Conc 34.6 g/dL (32-36); Mean Corpuscular Volume 95.4 fL (81-99); Mean Platelet Vol. 11.1 fl (6.2-12.0); NRBC Flagged by Analyzer 0 % (0-5); Platelet Count 199 K/mm3 (150-450); RBC Distribution Width CV 12.4 % (11.6-14.6); RBC Distribution Width SD 43.3 fl (35.1-43.9); Red Blood Count 3.24 M/mm3 (4.2-5.4); White Blood Count 7.3 K/mm3 (4.4-11.0)
[2025-03-23 08:49] LABS: CPK Total, Creatine Kinase 460 U/L (24-195)
[2025-03-23 08:51] VITALS: BP 106/71; PULSE 72; RESP 14; TEMP 36.6; O2SAT 98
[2025-03-23 09:08] LABS: CRP < 3.00 mg/L (0.0-3.0)
--- NOTE | 2025-03-23 10:50 | CASEMGMT ---
[facility] NICHOLAS note: RN CM to room. Pt sitting on edge of bed. Introduced self and role. Pt states she lives w/her 4-yr-old daughter and her daughter's father. She reports being independent @ home and wishes to discharge home when medically ready. She denies transportation issues, stating her car is in the [facility] parking lot and she plans to drive home @ [place]. She does not have insurance or Rx benefits. She would like to get any new Rx's from [facility] in [place]. She states she has some money, but it will be depend on the martinez of new Rx's if she will have enough money to pay for them. She states her PCP is Dr Nassar but it has been awhile since she has seen him, stating, It's been within the calendar year. However, she states she cannot afford to go back to him again and pay [id number] for office visit. [facility]. She voices appreciation. She denies having other discharge needs or concerns. Plan: Home. Follow for Rx cost @ dc. Vinh BENAVIDEZ RN CM
--- NOTE | 2025-03-23 13:04 | DCINST_ITS ---
Discharge Instructions DC O2, CPAP, BIPAP needs Home O2 Discharge instructions: No Dressing / Incision Discharge Activity: No Restrictions Follow Up Care Test Results: Test results from this visit will be discussed in further detail at your follow- up appointment, if applicable. Discharge Plan Admission Admit Date/Time: 03/20/25 21:42 Primary Reason for Your Visit: Abdominal pain and diarrhea Attending Provider: Alejo Burks Primary Care Provider: Charly Nassar Consulting Providers: Ean Linares; Ranjana Sexton Discharge Orders/Prescriptions Prescriptions: New pantoprazole 40 mg Tablet,Delayed Release (Dr/Ec) 40 mg PO DAILY 30 Days Qty: 30 0RF psyllium husk [Metamucil] 0.4 gram capsule 0.4 g PO DAILY 30 Days Qty: 30 0RF Continued acetaminophen 500 mg capsule 1,000 mg PO Q6H PRN (Reason: fever or pain) Referrals / Follow Up: Charly Nassar MD [Primary Care Provider] - Urban Wang DO [Med Staff - Active Staff] - Disposition Disposition (needs filled in before D/C Order can be placed): Home, Self Care
--- NOTE | 2025-03-23 13:08 | PCM.DC.SUM ---
Providers Date of Admission: 03/20/25 Date of Discharge: 03/23/25 Primary Care Physician: Dr. Charly Nassar MD Consultations 03/20/25 22:30 Consult: Gastroenterology Routine Consulting Provider: [facility] Reason for Consult: Intractable Abd Pain with CT suspicious for Appendicitis. EMERGENT Consult: No MD Notified: Yes Date Notified: 03/20/25 Time Notified: 21:46 Method of Notification: ED Physician Initiated Reason For Visit: SUSPECTED ACUTE APPENDICITIS ON CT WITH Diagnosis Discharge Diagnosis (1) Intractable nausea and vomiting: Status: Acute Code(s): R11.2 - Nausea with vomiting, unspecified (2) Intractable abdominal pain: Status: Acute Code(s): R10.9 - Unspecified abdominal pain Medications at Discharge Home Medications acetaminophen 500 mg capsule 1,000 mg PO Q6H PRN fever or pain 03/20/25 pantoprazole 40 mg tablet,delayed release 40 mg PO DAILY 30 days #30 tabs 03/23/25 psyllium husk 0.4 gram capsule (Metamucil) 0.4 g PO DAILY 30 days #30 caps 03/23/25 Hospital Course Operations None Procedures Colonoscopy, EGD, EKG and - (CT abdomen pelvis, transvaginal ultrasound) Summary of Care Provided Minutes Spent on Discharge: 35 Hospital Course: Patient is a 29-year-old female who presented to [facility] ED on 03/20/2025 with abdominal pain. Hospital course as noted below. Patient discharged home in stable condition on 03/23. 1. Intractable abdominal pain with diarrhea, improving ? GI and surgery follow-up. Initially with concern for appendicitis, as CT abdomen pelvis showed mild adjacent fat stranding near the appendix. However, surgery evaluated and determined her presentation was not consistent with appendicitis given no leukocytosis or left shift, no vomiting and no fevers or anorexia, and intermittent abdominal pain. EGD on 03/22 showed erythematous duodenopathy and chronic gastritis that were both biopsied. Colonoscopy showed mild inflammation found in the ileum secondary to ileitis that was biopsied. Significant laboratory workup sent by GI that was pending on discharge. Patient still has intermittent episodes of diarrhea on day of discharge but was much improved from admission and tolerating a regular diet without issue. Stable for discharge home on PPI daily and Metamucil with plan for close outpatient follow-up with GI. 2. Bipolar disorder ? Not currently on any home medications. Stable. Outpatient follow-up as needed. 3. Nicotine dependence ? Nicotine patch in place during hospitalization. Strongly encouraged cessation on discharge. 4. Cannabis use ? UDS positive for marijuana. Patient reported occasional marijuana use on admission. Strongly encouraged cessation on discharge. 5. Mildly low TSH ? TSH mildly low at 0.29, free T4 mildly elevated at 1.50. These labs are negative of mild hyperthyroidism, but in light of the marginal numbers, recommend repeating these labs in the outpatient setting in 4 to 6 weeks prior to starting any treatment for this. Total clinical time spent by myself addressing the patient's medical issues, reviewing all the data, and collaborating with patient's care team: 35 minutes. Physical Exam Const alert, oriented x3, no apparent distress and average body habitus Constitutional Narrative: Pleasant younger female, mildly fatigued appearing but otherwise sitting back comfortably in bed, conversing normally, in no acute distress. General Appearance: cooperative and comfortable HEENT normocephalic, head/scalp atraumatic, hearing grossly normal bilaterally, nasal mucous membranes and turbinates normal and moist oral mucous membranes Eyes PERRL, EOMs intact bilaterally and conjunctivae normal Neck full ROM Chest inspection of chest normal Resp normal respiratory effort, normal air movement, no use of accessory muscles and clear to auscultation bilaterally Cardio regular rate, regular rhythm, no murmurs and peripheral pulses 2+ throughout GI normal to inspection, nondistended, normoactive bowel sounds, soft to palpation, non-tender and non-distended Back/Spine normal ROM Extremity normal to inspection, full ROM and no pedal edema Skin no rashes or lesions noted Psych mental status grossly normal Weight / BMI Weight Weight: 52.7 kg Body Mass Index (BMI) 21.2 ABG / Lab / Microbiology Data 03/23/25 07:19 03/23/25 07:19 Laboratory: Laboratory Results - last 24 hr 03/22/25 19:11: RINA-1 Antibody TNP, Sm (Brandt) Antibody TNP, RABBET OPERATOR Antibody TNP, Scl-70 Scleroderma Ab TNP, Antichromatin Antibodies TNP, Centromere B Antibody TNP 03/23/25 07:19: WBC 7.3, RBC 3.24 L, Hgb 10.7 L, Hct 30.9 L, MCV 95.4, MCH 33.0 H, MCHC 34.6, RDW Std Deviation 43.3, RDW Coeff of Cinthya 12.4, Plt Count 199, MPV 11.1, Immature Gran % (Auto) 0.300, Neut % (Auto) 59.1, Lymph % (Auto) 30.6, [place] % (Auto) 7.4, Eos % (Auto) 2.2, Baso % (Auto) 0.4, Absolute Neuts (auto) 4.3, Absolute Lymphs (auto) 2.23, Nucleated RBC % 0, ESR < 1, Sodium 140, Potassium 3.5, Chloride 108, Carbon Dioxide 21.0, Anion Gap 11, BUN 8, Creatinine 0.75, Estim Creat Clear Calc 88.32, Est GFR (MDRD) Non-Af 111, BUN/Creatinine Ratio 11.0, Glucose 94, Calcium 8.7, Total Creatine Kinase 460 H, C-React Prot Ext Range < 3.00 Microbiology: Microbiology 03/21/25 21:45 Stool Stool Lactoferrin - Final 03/21/25 21:45 Stool Enteric Bacteriology - Final 03/21/25 21:45 Stool Clostridioides difficile (PCR) - Final D/C Instructions DC O2, CPAP, BIPAP Needs Home O2 Discharge instructions: No Meaningful Use Info Meaningful Use Meaningful Use Diagnoses (Choose all that apply): None applicable Discharge Plan Admission Admit Date/Time: 03/20/25 21:42 Primary Reason for Your Visit: Abdominal pain and diarrhea Attending Provider: Alejo Burks Primary Care Provider: Charly Nassar Consulting Providers: Ean Linares; Ranjana Sexton Discharge Orders/Prescriptions Prescriptions: New pantoprazole 40 mg Tablet,Delayed Release (Dr/Ec) 40 mg PO DAILY 30 Days Qty: 30 0RF psyllium husk [Metamucil] 0.4 gram capsule 0.4 g PO DAILY 30 Days Qty: 30 0RF Continued acetaminophen 500 mg capsule 1,000 mg PO Q6H PRN (Reason: fever or pain) Referrals / Follow Up: Charly Nassar MD [Primary Care Provider] - Urban Wang DO [Med Staff - Active Staff] - Disposition Disposition (needs filled in before D/C Order can be placed): Home, Self Care Charges/Coding Visit Charges Inpatient E&M: 62530 Disch Hosp >30min
[2025-03-23 13:13] VITALS: BP 117/71; PULSE 60; RESP 14; TEMP 36.6; O2SAT 99
--- NOTE | 2025-03-23 14:42 | CASEMGMT ---
Social Work Phone call to Kayla Mcdermott and martinez of prescribed meds obtained. SW met with pt and provided cost of new prescriptions and pt confirms she has the needed finances to purchase prescriptions. ERIS Bahena
[2025-03-23 14:55] VITALS: BP 117/71; PULSE 60; RESP 16; TEMP 36.6; O2SAT 99
[2025-03-28 13:08] LABS: Anti-Chromatin <0.2 AI (0.0-0.9); Anti-Jo <0.2 AI (0.0-0.9); Anti-dsDNA Ab <1 IU/mL (0-9); Egg, Whole <0.10 kU/L (Class 0); Mussels <0.10 kU/L (Class 0); SJOGREN'S Anti-SS-A test < 0.2 AI (0.0-0.9); SJOGREN'S Anti-SS-B test < 0.2 AI (0.0-0.9)
[2025-04-01 14:08] LABS: ACCA 35 units (0-90); ALCA 10 units (0-60); AMCA 30 units (0-100); Cytoplasmic Ab (C-ANCA) <1:20 titer (Neg:<1:20); IgG, Quant 903 mg/dL (586-1602); Immunoglobulin A 302 mg/dL (87-352); Immunoglobulin G, Subclass 1 463 mg/dL (248-810); Immunoglobulin G, Subclass 2 245 mg/dL (130-555); Immunoglobulin G, Subclass 3 45 mg/dL (15-102); Immunoglobulin G, Subclass 4 7 mg/dL (2-96); Immunoglobulin M 185 mg/dL (26-217); Perinuclear Ab (P-ANCA) <1:20 titer (Neg:<1:20)
== END 2025-03-23 13:13 | disposition home or self-care (01) ==
LOC: ED 16:09 → PCU 21:56
PROVIDERS: Anesthesiology; Internal Medicine Gastroenterology; Student in an Organized Health Care Education/Training Program; Admitting Provider Internal Medicine; Emergency Provider Surgery; PCP Family Medicine; Visit Provider Hospitalist
PROC: 0DJD8ZZ Inspection of Lower Intestinal Tract, Via Natural or Artificial Opening Endoscopic (ICD-10-PCS; CPT 45378; principal; 2025-03-22 16:40)
DX: R10.9 Unspecified abdominal pain (principal); F31.9 Bipolar disorder, unspecified; R11.2 Nausea with vomiting, unspecified; K29.50 Unspecified chronic gastritis without bleeding; R19.7 Diarrhea, unspecified; F12.90 Cannabis use, unspecified, uncomplicated; F17.290 Nicotine dependence, other tobacco product, uncomplicated; K52.9 Noninfective gastroenteritis and colitis, unspecified; K62.89 Other specified diseases of anus and rectum
CPT/HCPCS: 45380; 44361; 36415; 74177; 76830; 80048; 80053; 80307; 81025; 82085; 82550; 82784; 82785; 82787; 83516; 83630; 83690; 83735; 84100; 84439; 84443; 84481; 84703; 85025; 85652; 86003; 86005; 86036; 86037; 86140; 86225; 86235; 86255; 86671; 87493; 87506; 88305; 88312; 96361; 96365; 96366; 96367; 96368; 96372; 96375; 96376; 99221; 99284; Q9967; A4216; G0378; J2405

== ENCOUNTER → 2025-04-27 | Outpatient (CLI) | payer SELFPAY ==
[2025-04-27 08:58] LABS: Hematocrit 37.2 % (37-47); Hemoglobin 12.6 g/dL (12.0-15.0); Immature Granulocytes Count 0.020 X10^3/uL (0.0-0.0); Mean Corp Hgb Conc 33.9 g/dL (32-36); Mean Corpuscular Volume 96.4 fL (81-99); Mean Platelet Vol. 10.6 fl (6.2-12.0); NRBC Flagged by Analyzer 0 % (0-5); Platelet Count 258 K/mm3 (150-450); RBC Distribution Width CV 13.1 % (11.6-14.6); RBC Distribution Width SD 46.4 fl (35.1-43.9); Red Blood Count 3.86 M/mm3 (4.2-5.4); White Blood Count 6.5 K/mm3 (4.4-11.0)
[2025-04-27 09:37] LABS: AST(SGOT) 15 U/L (<=31); Alanine Aminotransfer ALT/SGPT 14 U/L (<=34); Albumin, Serum 4.4 g/dL (3.5-5.0); Alkaline Phosphatase 42 U/L (35-104); Anion Gap 11 (5-15); BUN 13 mg/dL (4-19); BUN/Creat Ratio 16.7 RATIO (10-20); Calcium,Total 9.7 mg/dL (7.6-11.0); Carbon Dioxide 23.8 mmol/L (21.0-32.0); Chloride 106 mmol/L (98-108); Globulin 2.9 g/dL (2.2-4.2); Glucose 97 mg/dL (70-99); Potassium 4.1 mmol/L (3.3-5.1)
== END | disposition home or self-care (01) ==
LOC: LAB 08:29
PROVIDERS: PCP Family Medicine; Referring Provider Student in an Organized Health Care Education/Training Program; Visit Provider Student in an Organized Health Care Education/Training Program
DX: R10.9 Unspecified abdominal pain (principal)
CPT/HCPCS: 36415; 80053; 85025